=== PATIENT | female | born 1950 | race Caucasian/White ===

== ENCOUNTER 2020-04-11 16:19 | Inpatient (IN) | payer MEDICARE, BC ==
--- NOTE | 2020-04-11 16:40 | ED ---
SOB HPI - General Chief Complaint: Shortness of Breath Stated Complaint: hypoxia, covid Time Seen by Provider: 04/11/20 16:22 Source: EMS Mode of arrival: EMS Limitations: no limitations - History of Present Illness Initial Comments: Is a 61-year-old female to history of hypertension and hypothyroidism who presents emergency department for shortness of breath. The patient states that she noted approximately one week ago that she was having fevers and decreased appetite with loss of taste. She states that she also developed some diarrhea. She was diagnosed with Coban through the health department for days ago. She was at home with her however noted that she was becoming aggressively short of breath so she went to [facility]. While she was there she was found to be hypoxic at 86%. She was started on high flow nasal cannula at 12 with improvement in her oxygenation. She was also found be febrile. She had a full workup performed including blood work which was mostly unremarkable. CBC was showing normal white blood cell count hemoglobin is 17. No lymphopenia was noted. Chemistry profile was also unremarkable except for mild hyponatremia at 127. Troponin was negative. The patient did have x-ray and a CTA performed that showed findings consistent with Coban pneumonia. EKG showed sinus rhythm without any ischemic changes. The patient was transferred to this hospital as her O2 requirement. The patient states that she is full code. - Related Data Allergies Allergy/AdvReac Type Severity Reaction Status Date / Time No Known Allergies Allergy Verified 04/11/20 16:28 Review of Systems ROS Statement: Those systems with pertinent positive or pertinent negative responses have been documented in the HPI. ROS Other: All systems not noted in ROS Statement are negative. Past Medical History Past Medical History: No Reported History History of Any Multi-Drug Resistant Organisms: None Reported Past Surgical History: Hysterectomy Additional Past Surgical History / Comment(s): bilat post tib tendon repair, Past Psychological History: No Psychological Hx Reported Smoking Status: Former smoker Past Alcohol Use History: Occasional Past Drug Use History: Marijuana General Exam - General Exam Comments Initial Comments: Constitutional: Awake alert Appears comfortable Head: Normocephalic atraumatic Eyes: no conjunctival injection No scleral icterus EOMI Neck: No JVD Supple Heart: Regular rate rhythm normal S1-S2 no murmurs Lungs: Mild tachypnea Clear to auscultation bilaterally No wheezing No rales Abdomen: Soft nondistended nontender Extremities: Non edematous DP pulses intact Radial pulses intact Neuro: A&Ox3 No focal neurologic deficits Psych: Appropriate mood and affect Limitations: no limitations Course Vital Signs 04/11/20 16:20 Temperature 99.6 F Pulse Rate 81 Respiratory 18 Rate Blood Pressure 107/69 O2 Sat by Pulse 93 L Oximetry Medical Decision Making - Medical Decision Making Is a 61-year-old female who presents emergency department for cold and pneumonia and hypoxia. The patient did appear comfortable on examination however was requiring a high amount of oxygen through high flow nasal cannula. I did review blood work and imaging from outside facility and these are consistent with Coban pneumonia. I spoke with Dr. Valdez and reviewed the case with him and he agreed for admission. The patient will be admitted to the stepdown cold unit for close monitoring due to her high requirement of oxygen. Patient currently agrees with plan of care. All questions were answered. We'll consult infectious disease for consideration of Remdesevir. Disposition Clinical Impression: Pneumonia due to COVID-19 virus Disposition: ADMITTED IP TO THIS HOSP Condition: Good Referrals: Nilay Crabtree MD [Primary Care Provider] - 1-2 days Decision to Admit Reason: Admit from EC
[2020-04-11] MEDS ORDERED: NALOXONE 0.4 MG/ML 1 ML VIAL IV PRN (16:48)
[2020-04-11] MEDS ORDERED: ACETAMINOPHEN TAB 325 MG TAB PO PRN (16:48)
[2020-04-11 16:58] LABS: Basophils # (A) 0.1 k/uL (0-0.2); Basophils % (A) 1 %; Eosinophils % (A) 0 %; HCT 51.6 % (34.0-46.0); Lymphocytes # (A) 0.3 k/uL (1.0-4.8); Lymphocytes % (A) 3 %; MCV 91.6 fL (80.0-100.0); Mean Platelet Volume 8.1; Monocytes # (A) 0.6 k/uL (0-1.0); Monocytes % (A) 6 %; Neutrophils # (A) 8.9 k/uL (1.3-7.7); Neutrophils % (A) 89 %; Platelet Count 164 k/uL (150-450); RBC 5.63 m/uL (3.80-5.40); RDW 13.1 % (11.5-15.5)
[2020-04-11 17:11] LABS: ALT 24 U/L (4-34); AST 58 U/L (14-36); African American GFR (CKD) >90 (>60 ml/min/1.73 sqM); Albumin 3.2 g/dL (3.5-5.0); Alkaline Phosphatase 56 U/L (38-126); Anion Gap 10 mmol/L; Blood Urea Nitrogen 20 mg/dL (7-17); Calcium 7.8 mg/dL (8.4-10.2); Carbon Dioxide 19 mmol/L (22-30); Chloride 102 mmol/L (98-107); Glucose 119 mg/dL (74-99); LDH 1701 U/L (313-618); Magnesium 2.1 mg/dL (1.6-2.3); Non-African American GFR(CKD) 84 (>60 ml/min/1.73 sqM); Sodium 131 mmol/L (137-145); Total Bilirubin 0.9 mg/dL (0.2-1.3); Total Protein 6.4 g/dL (6.3-8.2)
[2020-04-11 17:16] LABS: D-Dimer 0.72 mg/L FEU (<0.60); INR 1.1 (<1.2); Partial Thromboplastin Time 28.9 sec (22.0-30.0); Prothrombin Time 10.9 sec (9.0-12.0)
[2020-04-11 17:23] LABS: C Reactive Protein 224.2 mg/L (<10.0); Potassium 4.3 mmol/L (3.5-5.1)
--- NOTE | 2020-04-11 17:38 | XR ---
EXAMINATION TYPE: XR chest 1V portable DATE OF EXAM: 04/11/2020 COMPARISON: NONE HISTORY: Short of breath TECHNIQUE: Single view FINDINGS: Heart is normal. Lungs are clear of consolidation. There are no hilar masses. Thoracic aort a is atheromatous. There are chest leads. Costophrenic angles are clear. IMPRESSION: No active cardiopulmonary disease. Normal heart.
[2020-04-11] MEDS: SODIUM CHLORIDE 0.9% 1,000 ML IV SCH (18:27)
[2020-04-11] MEDS: dexAMETHasone 2 MG TAB PO SCH (19:51)
[2020-04-11] MEDS: ENOXAPARIN 40 MG/0.4 ML SYRINGE SQ SCH (19:51)
[2020-04-11] MEDS: FAMOTIDINE 20 MG TAB PO SCH (19:51)
[2020-04-11] MEDS: ALBUTEROL HFA INHALER INHALATION SCH (20:00)
--- NOTE | 2020-04-11 20:05 | HP ---
HISTORY AND PHYSICAL DATE OF SERVICE: 04/11/2020. CHIEF COMPLAINT: Shortness of breath with cough and hypoxia. HISTORY OF PRESENT ILLNESS: This 69-year-old woman with a past medical history of multiple medical problems including hysterectomy, history of tibial tendon repair, being followed by Dr. Crabtree in the outpatient setting, living in the [place] area. The patient had hypertension and hypothyroidism. The patient was complaining of shortness of breath and fever, cough about 1 week ago which is increasing with decreased appetite and loss of taste also. The patient also developed some diarrhea. The patient was diagnosed with Covid through the health department, but she is getting more short of breath and went to [facility] and was found to be hypoxic at 80% oxygen saturation. 12 L oxygen was given and the patient was subsequently transferred to [facility] and admitted for evaluation and treatment. The patient had elevated D-dimer, but CT angio showed no evidence of pulmonary embolism and as well as bilateral interstitial suggestive of Covid 19 pneumonia in [facility]. There is no history of any fever, rigor or chills. No history of headache, loss of consciousness, seizures at this time. PAST MEDICAL HISTORY: History of hysterectomy, history of bilateral posterior tibial tendon repair. MEDICATIONS: Medications prior to admission included: Losartan, hydrochlorothiazide Synthroid. ALLERGIES: None. FAMILY HISTORY: No history of heart disease of any strokes in the family. SOCIAL HISTORY: Previous history of smoking. Occasional THC. REVIEW OF SYSTEMS: ENT: No diminished vision. No diminished hearing. CARDIOVASCULAR: As mentioned earlier. RESPIRATORY: As mentioned earlier. GI no nausea. no dysuria. NERVOUS SYSTEM: No numbness or weakness. ALLERGY/IMMUNOLOGY: No asthma or hayfever. MUSCULOSKELETAL as mentioned earlier. HEMATOLOGY: No history of anemia. ENDOCRINE: As mentioned earlier. CONSTITUTIONAL: As mentioned earlier. DERMATOLOGY: Negative. RHEUMATOLOGY negative. PSYCHIATRY as mentioned earlier. PHYSICAL EXAMINATION: The patient is alert and oriented times three. Pulse 68, blood pressure 120/60. Respiration 18, temperature 98.2, pulse ox 97% on 11 L. HEENT: Conjunctivae normal. NECK: No JVD. CARDIOVASCULAR: S1, S2 muffled. RESPIRATORY: Breath sounds diminished in the bases. Bilateral scattered rhonchi and crackles. ABDOMEN: Soft, nontender. No mass palpable. LEGS: No edema. No swelling. NERVOUS SYSTEM: Higher functions as mentioned earlier. Moves all 4 limbs. No focal motor or sensory deficits. Lymphatics: No lymph nodes palpable in the neck, axillae or groin. SKIN: No ulcer, no rash and no bleeding. JOINTS: No active deforming arthropathy. LABS: At this time shows WBC 10, hemoglobin is 18. INR is 1.1. Sodium 139, potassium 4.3 and glucose 119, calcium 7.8, LDH is 1701. C-reactive protein is 224, albumin is 2.2. ASSESSMENT: 1. Acute Covid 19 infection as well as acute bilateral interstitial pneumonia with acute hypoxic respiratory failure present on admission. 2. Increased hemoglobin with polycythemia. 3. Increased elevated D-dimer without any evidence of pulmonary embolism. 4. Hyponatremia. 5. Mild metabolic acidosis. 6. Elevated LDH and CRP inflammatory markers of Covid 19. 7. History of hysterectomy. 8. History of bilateral posterior tibial tendon repair. 9. Remote history of nicotine dependence. 10.Obesity with body mass index of 35. 11.FULL CODE. RECOMMENDATIONS AND DISCUSSION: This 69-year-old woman who presented with multiple complex medical issues, we will monitor the patient closely, continue the current medications. I recommend symptomatic treatment with albuterol, dexamethasone and I would also recommend zinc and consult Pulmonary and as well as Infectious Disease. The patient might be a candidate for Remdesivir because of the patient's renal presentation. We will continue to monitor. The prognosis guarded. Further recommendations to follow. A copy of this dictation is being forwarded to Dr. Nilay Crabtree who is the primary physician. MMFREDRICKL / DELANEYN: [id number] / MTDD
[2020-04-11 23:54] LABS: Appearance,Urine Cloudy (Clear); Bilirubin,Urine Negative (Negative); Blood,Urine Small (Negative); Color,Urine Yellow; Glucose,Urine (UA) 2+ (Negative); Ketones,Urine 1+ (Negative); Leukocyte Esterase,Urine Negative (Negative); Mucus,Urine Few /hpf; Nitrite,Urine Negative (Negative); Protein,Urine 1+ (Negative); RBC,Urine 1 /hpf (0-5); Specific Gravity,Urine 1.045 (1.001-1.035); Squamous Epithelial Cell,Urine 2 /hpf (0-4); WBC,Urine 5 /hpf (0-5)
[2020-04-12 00:05] LABS: Ferritin 2111.3 ng/mL (10.0-291.0)
[2020-04-12] MEDS: SODIUM CHLORIDE 0.9% 1,000 ML IV SCH ×2 (05:51→20:50)
[2020-04-12] MEDS: LEVOTHYROXINE 50 MCG TAB PO SCH (06:25)
[2020-04-12] MEDS: INSULIN ASPART (NovoLOG) 100 UNIT/ML VIAL SQ SCH ×4 (06:25→20:49)
[2020-04-12 06:29] LABS: Glucose,Whole Blood 140 mg/dL (75-99)
[2020-04-12 07:29] LABS: Basophils # (A) 0.1 k/uL (0-0.2); Basophils % (A) 1 %; Eosinophils % (A) 0 %; HCT 52.8 % (34.0-46.0); Lymphocytes # (A) 0.5 k/uL (1.0-4.8); Lymphocytes % (A) 5 %; MCHC 34.2 g/dL (31.0-37.0); MCV 93.6 fL (80.0-100.0); Mean Platelet Volume 8.3; Monocytes # (A) 0.6 k/uL (0-1.0); Monocytes % (A) 7 %; Neutrophils # (A) 8.5 k/uL (1.3-7.7); Neutrophils % (A) 86 %; Platelet Count 188 k/uL (150-450); RBC 5.64 m/uL (3.80-5.40); RDW 13.2 % (11.5-15.5); WBC 9.9 k/uL (3.8-10.6)
[2020-04-12 07:38] LABS: African American GFR (CKD) >90 (>60 ml/min/1.73 sqM); Anion Gap 6 mmol/L; Blood Urea Nitrogen 22 mg/dL (7-17); Carbon Dioxide 26 mmol/L (22-30); Chloride 103 mmol/L (98-107); Glucose 141 mg/dL (74-99); Non-African American GFR(CKD) >90 (>60 ml/min/1.73 sqM); Potassium 4.1 mmol/L (3.5-5.1); Sodium 135 mmol/L (137-145)
[2020-04-12] MEDS: ALBUTEROL HFA INHALER INHALATION SCH ×3 (08:26→20:55)
[2020-04-12] MEDS: LOSARTAN-HCTZ 50-12.5 MG 1 EACH TAB PO SCH (08:52)
[2020-04-12] MEDS: ZINC SULFATE 220 MG CAP PO SCH (08:52)
[2020-04-12] MEDS: FAMOTIDINE 20 MG TAB PO SCH ×2 (08:52→20:49)
[2020-04-12] MEDS: dexAMETHasone 2 MG TAB PO SCH (08:52)
[2020-04-12] MEDS: CHOLECALCIFEROL 1,000 UNIT TAB PO SCH (08:52)
[2020-04-12] MEDS: ASCORBIC ACID 500 MG TAB PO SCH (08:52)
[2020-04-12] MEDS: ENOXAPARIN 40 MG/0.4 ML SYRINGE SQ SCH ×2 (08:53→20:49)
[2020-04-12 11:59] LABS: Glucose,Whole Blood 126 mg/dL (75-99)
[2020-04-12] MEDS ORDERED: REMDESIVIR 200 MG in SODIUM CHLORIDE 0.9% 250 ML IVPB ONE (12:00)
[2020-04-12] MEDS: FOLIC ACID 1 MG TAB PO SCH (12:19)
[2020-04-12] MEDS: MULTIVITAMINS, THERA 1 EACH TAB PO SCH (12:19)
[2020-04-12] MEDS: THIAMINE 100 MG TAB PO SCH (12:20)
--- NOTE | 2020-04-12 14:58 | P.CNPUL ---
History of Present Illness Consult date: 04/12/20 Requesting physician: Vince Valdez Reason for consult: pneumonia Chief complaint: Shortness of breath cough and fever. History of present illness: This is a 69-year-old female with history of hypertension, hypothyroidism, patient presented with 1 week history of cough fever shortness of breath, decreased appetite, and intermittent episodes of diarrhea. Patient was diagnosed as having covid 19 infection. It's was done through the health Department. Patient presented to [facility] and was found to be hypoxic, O2 saturations was 80%, patient was placed on 12 L high flow nasal ca nnula, and arrangements were made to transfer the patient to [facility]. She had a CT angiogram of the chest, and there was no evidence of pulmonary embolism, however there was evidence of bilateral interstitial infiltrates consistent with covid 19 pneumonitis. Considering the diagnoses and considering the presentation, patient was admitted and this consult was initiated. Patient had multiple constitutional symptoms prior to admission however she did not lose sensation of taste or smell. She had mostly cough, shortness of breath, fever, diarrhea, and generalized aches and pains as well as extreme fatigue. Review of Systems Constitutional: Fever chills extreme fatigue aches and pains. HEENT: Negative. Pulmonary: As noted in HPI. GI: No nausea no vomiting but she had intermittent diarrhea. Genitourinary: Negative. Musculoskeletal: Aches and pains and fatigue. Neurologic: Headaches. Psychiatric: Negative. Endocrine: Negative. Hematologic: No clotting bleeding or bruising. Skin: Negative. Past Medical History Past Medical History: Hypertension, Thyroid Disorder History of Any Multi-Drug Resistant Organisms: None Reported Past Surgical History: Hysterectomy Additional Past Surgical History / Comment(s): bilat post tib tendon repair, Past Anesthesia/Blood Transfusion Reactions: No Reported Reaction Smoking Status: Former smoker Medications and Allergies Home Medications Medication Instructions Recorded Confirmed Type Levothyroxine Sodium [Synthroid] 50 mcg PO DAILY 04/11/20 04/11/20 History Losartan/Hydrochlorothiazide 1 tab PO DAILY 04/11/20 04/11/20 History [Losartan-Hctz 50-12.5 mg Tab] Allergies Allergy/AdvReac Type Severity Reaction Status Date / Time No Known Allergies Allergy Verified 04/11/20 17:17 Physical Exam Vitals: Vital Signs Temp Pulse Pulse Resp BP BP Pulse Ox 04/12/20 12:00 98.3 F 78 20 136/76 93 L 04/12/20 08:00 98.3 F 80 20 131/80 95 04/12/20 04:00 97.9 F 67 24 159/73 91 L 04/12/20 02:00 68 26 H 04/11/20 23:49 98.6 F 72 26 H 170/99 84 L 04/11/20 20:00 98.4 F 66 20 134/67 94 L 04/11/20 19:05 92 L 04/11/20 18:54 102 F H 04/11/20 18:49 68 22 109/70 92 L 04/11/20 18:31 98.2 F 68 18 110/63 97 04/11/20 16:20 99.6 F 81 18 107/69 93 L Intake and Output 04/11/20 04/12/20 04/12/20 22:59 06:59 14:59 Intake Total 300 120 Output Total 300 400 Balance 0 -280 Intake: Intake, IV Titration 300 Amount Sodium Chloride 0.9% 1, 300 000 ml @ 75 mls/hr IV . [id number] [facility] Rx#:[id number] Oral 120 Output: Urine 300 400 Other: Voiding Method Bedside Commode Bedside Commode # Voids 1 Weight 104.326 kg 105 kg Physical Exam: Revealed a 69-year-old female in no distress. However the patient is on 15 L high flow nasal cannula with O2 saturation of 93%. Head: Atraumatic normocephalic. HEENT:[Neck is supple.] [No neck masses.] [No thyromegaly.] [No JVD.] Her lack, EOMI, nonicteric. Chest: [Symmetrical chest expansion, fine crackles at the bases no rhonchi and no wheezes. Cardiac Exam: [Normal S1 and S2, no S3 gallop, no murmur.] Abdomen: [Soft, nontender, no megaly, no rebound, no guarding, normal bowel sounds.] Extremities: [No clubbing, no edema, no cyanosis.] Neurological Exam: [No focal neurologic deficit.] Alert and oriented 3. Psychiatric: Normal mood, affect and normal mental status examination. Skin: No rashes. Results - Laboratory Findings CBC and BMP: 04/12/20 07:12 04/12/20 07:12 PT/INR, D-dimer PT 10.9 sec (9.0-12.0) 04/11/20 16:48 INR 1.1 (<1.2) 04/11/20 16:48 D-Dimer 0.72 mg/L FEU (<0.60) H 04/11/20 16:48 Abnormal lab findings: Abnormal Labs 04/11/20 04/11/20 04/11/20 16:48 16:48 16:48 RBC 5.63 H Hgb 18.0 H Hct 51.6 H Neutrophils # 8.9 H Lymphocytes # 0.3 L D-Dimer 0.72 H Sodium 131 L Carbon Dioxide 19 L BUN 20 H Glucose 119 H POC Glucose (mg/dL) Calcium 7.8 L Ferritin 2111.3 H AST 58 H Lactate Dehydrogenase 1701 H C-Reactive Protein 224.2 H Albumin 3.2 L Procalcitonin Urine Appearance Ur Specific [place] Urine Protein Urine Glucose (UA) Urine Ketones Urine Blood Urine Mucus 04/11/20 04/11/20 04/12/20 16:48 23:42 06:22 RBC Hgb Hct Neutrophils # Lymphocytes # D-Dimer Sodium Carbon Dioxide BUN Glucose POC Glucose (mg/dL) 140 H Calcium Ferritin AST Lactate Dehydrogenase C-Reactive Protein Albumin Procalcitonin 0.10 H Urine Appearance Cloudy H Ur Specific [place] 1.045 H Urine Protein 1+ H Urine Glucose (UA) 2+ H Urine Ketones 1+ H Urine Blood Small H Urine Mucus Few H 04/12/20 04/12/20 04/12/20 07:12 07:12 11:58 RBC 5.64 H Hgb 18.0 H Hct 52.8 H Neutrophils # 8.5 H Lymphocytes # 0.5 L D-Dimer Sodium 135 L Carbon Dioxide BUN 22 H Glucose 141 H POC Glucose (mg/dL) 126 H Calcium 8.0 L Ferritin AST Lactate Dehydrogenase C-Reactive Protein Albumin Procalcitonin Urine Appearance Ur Specific [place] Urine Protein Urine Glucose (UA) Urine Ketones Urine Blood Urine Mucus - Diagnostic Findings CT scan - chest: image reviewed (As noted in HPI.) Assessment and Plan Assessment: Impression: Acute hypoxic respiratory failure secondary tocovid 19 pneumonitis. Elevated inflammatory markers including LDH and CRP secondary to above. History of hysterectomy. Remote history of nicotine dependence. Obesity with body index of 35. Elevated d-dimer but negative for pulmonary embolism. Recommendation: Continue the present cocktail for covid 19 pneumonitis. Will start patient on remdesivir Will start patient on convalescent plasma We'll continue Decadron, vitamin C, vitamin D, and zinc. Continue GI prophylaxis. Continue Lovenox. Will follow closely. Prognosis is guarded. Time with Patient: Greater than 30
--- NOTE | 2020-04-12 16:21 | PN ---
PROGRESS NOTE DATE OF SERVICE: 04/12/2020 This 69-year-old woman was admitted with acute Covid 19 infection with bilateral pneumonia. Otherwise, the patient has acute hypoxic respiratory failure, started on Remdesivir as well as conservative line of management. Patient has elevated D-dimer. There is no evidence of pneumonia. Multiple consultants are following the patient including Pulmonary and as well as Infectious Disease. Past medical history reviewed. REVIEW OF SYSTEMS: CARDIOVASCULAR SYSTEM: As mentioned earlier. RESPIRATORY: As mentioned earlier. GI no nausea or vomiting. : As mentioned earlier. NERVOUS SYSTEM: No numbness or weakness. CURRENT MEDICATIONS: Reviewed and include: Tylenol, Ventolin, vitamin C, vitamin D3, Hexadrol, Lovenox, Pepcid, Hyzaar, NovoLog. Doses are reviewed. PHYSICAL EXAMINATION: Alert and oriented times three. Pulse 78, blood pressure 130/70, respiration 20, temperature 98.2, pulse ox 92% on 15 L. HEENT: Conjunctivae normal. Neck: No JVD. CARDIOVASCULAR: S1, S2 muffled. Respirations: Breath sounds diminished in the bases. Bilateral scattered rhonchi and crackles. ABDOMEN: Soft. Nontender. NERVOUS SYSTEM: No focal deficits. LABS: Hemoglobin 18. Sodium 135 and glucose is 126 and calcium is 8. ASSESSMENT: 1. Acute COVID-19 infection as well as bilateral interstitial pneumonia with acute hypoxic respiratory failure present on admission. 2. Increased hemoglobin with polycythemia. 3. Elevated D-dimer without any evidence of any pulmonary embolism. 4. Hyponatremia. 5. Mild metabolic acidosis. 6. Elevated LDH and CRP, inflammatory markers of Covid 19. 7. History of hysterectomy. 8. History of bilateral posterior tibial tendon repair. 9. Remote history of nicotine dependence. 10.Obesity with body mass index of 35. 11.FULL CODE. RECOMMENDATIONS AND DISCUSSION: Recommend to continue current medications, management and symptomatic treatment. Otherwise at this time I recommend continue with symptomatic treatment. Continue with Remdesivir. Continue with dexamethasone. Monitor blood sugars closely. Lovenox, zinc. Guarded prognosis because of multiple complex medical issues and further recommendations to follow. We will repeat a chest x-ray tomorrow. The chest x-ray done yesterday was personally reviewed by me. The CT angio done yesterday did not show any evidence of pulmonary embolism. MMODL / IJN: [id number] /
[2020-04-12 17:12] LABS: Glucose,Whole Blood 141 mg/dL (75-99)
[2020-04-12 20:25] LABS: Glucose,Whole Blood 160 mg/dL (75-99)
--- NOTE | 2020-04-13 00:04 | CONS ---
CONSULTATION DATE OF SERVICE: 04/12/2020 REASON FOR CONSULTATION: Pneumonia. HISTORY OF PRESENT ILLNESS: The patient is a 69-year-old female presenting to the ER with chief complaints of generalized not feeling well, shortness of breath, chest pain. The patient's symptoms started on April 05, with initial symptoms has been generalized weakness, no energy and run down. The patient also having a fever and apparently the patient did have a COVID testing done on the . She was told was positive a day later. The patient started having increasing shortness of breath on minimal exertion. Subsequently presented to [facility]. The patient was noted to be hypoxic with O2 sats 98%. The patient was placed on high-flow oxygen and transferred to [facility] ER for further evaluation. On arrival to the ER, the patient did have a fever of 102 degrees Fahrenheit. The patient did have hypoxemia, currently on high-flow nasal cannula oxygen. The patient did have a normal white count with evidence of lymphopenia. Kidney function has been normal. Procalcitonin 0.10. CRP 24.2. Liver enzymes elevated. The patient did have a chest x-ray with evidence of no acute cardiopulmonary disease. The patient has been admitted to the hospital and Infectious Disease Service is consulted for further management. The patient already has been evaluated by Pulmonary service and the patient was started on Remdesivir, Lovenox and Dexamethasone. REVIEW OF SYMPTOMS: On review of systems positive points have been mentioned in HPI. Rest of the systems are negative. PAST MEDICAL HISTORY: No major illnesses. PAST SURGICAL HISTORY: Hysterectomy, bilateral posterior tibial tendon repair. SOCIAL HISTORY: Remote history of smoking. Did admit to marijuana use and drinking. FAMILY HISTORY: No pertinent findings noticed. ALLERGIES: No known drug allergies. MEDICATIONS: The patient is currently on Remdesivir, dexamethasone, Lovenox, Tylenol, vitamin C, Pepcid, NovoLog, Synthroid, Narcan and zinc. PHYSICAL EXAMINATION: Her blood pressure is 136/70 with a pulse of 84, temperature 99.8, T-max 102. Patient is on 15 L high-flow oxygen. General description is an elderly female lying in bed in no distress. No tachypnea or accessory muscles of respiration use. HEENT: Examination no pallor or scleral icterus. Oral mucous membrane is dry. Neck exam: No thyromegaly. Lungs unlabored breathing. Coarse breath sounds in the bases bilaterally. No wheeze. Heart S1, S2. Regular rate and rhythm. Abdomen soft, no tenderness. No guarding. No rigidity. Extremities: No edema of the feet. Skin examination no rash or mass palpable. Neurological: Patient is awake, alert, oriented. Mood, affect normal. LABS: Hemoglobin is 18, white count 9.9, BUN of 22, creatinine 0.6. Electrolytes have been normal. Creatinine is 2. Chest x-ray report negative. DIAGNOSTIC IMPRESSION AND PLAN: Patient with acute shortness of breath, fever, source is acute viral pneumonia secondary to [place] virus in this patient who has been going on for about a week with no suspicious for secondary bacterial pneumonia. PLAN: 1. The patient will be started on Remdisivir 200 mg 1 followed by 100 mg daily for 4 more doses. 2. Lovenox 40 mg daily. 3. Dexamethasone 7 mg daily. 4. Vitamin C and zinc sulfate. 5. Droplet isolation and respiratory support. 6. We will follow on clinical condition and culture to further adjust medication if needed. Thank you for this consultation. Will follow this patient along with you. MMODL / IJN: [id number] / KELSIE
[2020-04-13 06:05] LABS: Glucose,Whole Blood 109 mg/dL (75-99)
[2020-04-13] MEDS: INSULIN ASPART (NovoLOG) 100 UNIT/ML VIAL SQ SCH ×4 (06:37→21:55)
[2020-04-13] MEDS: SODIUM CHLORIDE 0.9% 1,000 ML IV SCH ×2 (06:41→21:57)
[2020-04-13] MEDS: ALBUTEROL HFA INHALER INHALATION SCH ×3 (08:16→19:50)
[2020-04-13 08:42] LABS: Basophils # (A) 0.2 k/uL (0-0.2); Basophils % (A) 1 %; Eosinophils % (A) 0 %; HCT 50.9 % (34.0-46.0); HGB 17.2 gm/dL (11.4-16.0); Lymphocytes # (A) 1.2 k/uL (1.0-4.8); Lymphocytes % (A) 8 %; MCH 31.4 pg (25.0-35.0); MCHC 33.8 g/dL (31.0-37.0); MCV 92.9 fL (80.0-100.0); Mean Platelet Volume 7.9; Monocytes # (A) 0.9 k/uL (0-1.0); Monocytes % (A) 6 %; Neutrophils # (A) 12.8 k/uL (1.3-7.7); Neutrophils % (A) 84 %; Platelet Count 275 k/uL (150-450); RBC 5.48 m/uL (3.80-5.40); RDW 13.2 % (11.5-15.5); WBC 15.3 k/uL (3.8-10.6)
[2020-04-13 08:54] LABS: African American GFR (CKD) >90 (>60 ml/min/1.73 sqM); Anion Gap 6 mmol/L; Blood Urea Nitrogen 21 mg/dL (7-17); Calcium 8.1 mg/dL (8.4-10.2); Carbon Dioxide 27 mmol/L (22-30); Chloride 101 mmol/L (98-107); Glucose 115 mg/dL (74-99); Non-African American GFR(CKD) 80 (>60 ml/min/1.73 sqM); Potassium 3.8 mmol/L (3.5-5.1); Sodium 134 mmol/L (137-145)
[2020-04-13] MEDS: dexAMETHasone 2 MG TAB PO SCH (08:55)
[2020-04-13] MEDS: CHOLECALCIFEROL 1,000 UNIT TAB PO SCH (08:55)
[2020-04-13] MEDS: FAMOTIDINE 20 MG TAB PO SCH ×2 (08:55→20:09)
[2020-04-13] MEDS: LOSARTAN-HCTZ 50-12.5 MG 1 EACH TAB PO SCH (08:55)
[2020-04-13] MEDS: ENOXAPARIN 40 MG/0.4 ML SYRINGE SQ SCH ×2 (08:55→20:09)
[2020-04-13] MEDS: ZINC SULFATE 220 MG CAP PO SCH (08:55)
[2020-04-13] MEDS: ASCORBIC ACID 500 MG TAB PO SCH (08:58)
--- NOTE | 2020-04-13 09:11 | XR ---
EXAMINATION TYPE: XR chest 1V portable DATE OF EXAM: 04/13/2020 COMPARISON: 04/11/2020 INDICATION: Covid TECHNIQUE: Single frontal view of the chest is obtained. FINDINGS: The heart size is normal. The pulmonary vasculature is prominent. Scattered mild opacity is present to the bilateral infiltrates can be compatible with atypical pneumo darshan IMPRESSION: 1. Findings which can be compatible with atypical pneumonia.
[2020-04-13] MEDS ORDERED: FUROSEMIDE 10 MG/ML 4 ML VIAL IV STA (11:30)
[2020-04-13] MEDS: FOLIC ACID 1 MG TAB PO SCH (11:45)
[2020-04-13] MEDS: THIAMINE 100 MG TAB PO SCH (11:45)
[2020-04-13] MEDS: MULTIVITAMINS, THERA 1 EACH TAB PO SCH (11:45)
[2020-04-13] MEDS: REMDESIVIR 100 MG in SODIUM CHLORIDE 0.9% 250 ML IVPB SCH (11:46)
[2020-04-13 12:01] LABS: Glucose,Whole Blood 111 mg/dL (75-99)
[2020-04-13 13:19] LABS: Glucose,Whole Blood 125 mg/dL (75-99)
--- NOTE | 2020-04-13 13:47 | P.PN ---
Subjective Progress Note Date: 04/13/20 Principal diagnosis: Acute hypoxic respiratory failure secondary to covid 19 pneumonitis This is a 69-year-old female with history of hypertension, hypothyroidism, patient presented with 1 week history of cough fever shortness of breath, decreased appetite, and intermittent episodes of diarrhea. Patient was diagnosed as having covid 19 infection. It's was done through the health Department. Patient presented to [facility] and was found to be hypoxic, O2 saturations was 80%, patient was placed on 12 L high flow nasal cannula, and arrangements were made to transfer the patient to [facility]. She had a CT angiogram of the chest, and there was no evidence of pulmonary embolism, however there was evidence of bilateral interstitial infiltrates consistent with covid 19 pneumonitis. Considering the diagnoses and considering the presentation, patient was admitted and this consult was initiated. Patient had multiple constitutional symptoms prior to admission however she did not lose sensation of taste or smell. She had mostly cough, shortness of breath, fever, diarrhea, and generalized aches and pains as well as extreme fatigue. Patient was reevaluated today on 04/13/2020, she seems to be extremely short of breath today. She has intermittent cough, and she is barely maintaining adequate O2 saturation in spite of being on a nonrebreather mask at 15 L flow. Hence after examining the patient and examining her chest x-ray, I have ron mmended transferring the patient to the ICU, she needs to be placed on airvo possibly BiPAP, and she may even require intubation and mechanical ventilation if her condition does not improve much soon. CBC showed leukocytosis with WBC of 15.3 hemoglobin is 17.2 index was abnormal renal profile is normal. Objective - Vital Signs Vital signs: Vital Signs Temp 98.6 F 04/13/20 12:04 Pulse 76 04/13/20 12:04 Resp 18 04/13/20 12:04 BP 112/78 04/13/20 12:04 Pulse Ox 76 L 04/13/20 12:04 Intake & Output 04/12/20 04/13/20 04/13/20 18:59 06:59 18:59 Intake Total 895 430 480 Output Total 400 200 Balance 495 230 480 Intake: Intake, IV Titration 775 Amount Remdesivir 200 mg In 250 Sodium Chloride 0.9% 250 ml @ 250 mls/hr IVPB ONCE ONE Rx#:[id number] Sodium Chloride 0.9% 1, 525 000 ml @ 75 mls/hr IV . [id number] [facility] Rx#:[id number] Oral 120 240 480 Blood Product 0 190 Ffp Pher Conval Covid19 0 190 Acda 1 Unit [id number] Output: Urine 400 200 Other: # Voids 1 - Exam Physical Exam: Revealed a 69-year-old female , in moderate respiratory distress. Head: Atraumatic normocephalic. HEENT:[Neck is supple.] [No neck masses.] [No thyromegaly.] [No JVD.] Her lack, EOMI, nonicteric. Chest: [Symmetrical chest expansion, crackles and rhonchi noted bilaterally Cardiac Exam: [Normal S1 and S2, no S3 gallop, no murmur.] Abdomen: [Soft, nontender, no megaly, no rebound, no guarding, normal bowel sounds.] Extremities: [No clubbing, no edema, no cyanosis.] Neurological Exam: [No focal neurologic deficit.] Alert and oriented 3. Psychiatric: Normal mood, affect and normal mental status examination. Skin: No rashes. - Labs CBC & Chem 7: 04/13/20 08:20 04/13/20 08:20 Labs: Abnormal Lab Results - Last 24 Hours (Table) 04/12/20 04/12/20 04/13/20 Range/Units 16:57 20:23 06:04 WBC (3.8-10.6) k/uL RBC (3.80-5.40) m/uL Hgb (11.4-16.0) gm/dL Hct (34.0-46.0) % Neutrophils # (1.3-7.7) k/uL Sodium (137-145) mmol/L BUN (7-17) mg/dL Glucose (74-99) mg/dL POC Glucose (mg/dL) 141 H 160 H 109 H (75-99) mg/dL Calcium (8.4-10.2) mg/dL 04/13/20 04/13/20 04/13/20 Range/Units 08:20 08:20 11:52 WBC 15.3 H (3.8-10.6) k/uL RBC 5.48 H (3.80-5.40) m/uL Hgb 17.2 H (11.4-16.0) gm/dL Hct 50.9 H (34.0-46.0) % Neutrophils # 12.8 H (1.3-7.7) k/uL Sodium 134 L (137-145) mmol/L BUN 21 H (7-17) mg/dL Glucose 115 H (74-99) mg/dL POC Glucose (mg/dL) 111 H (75-99) mg/dL Calcium 8.1 L (8.4-10.2) mg/dL 04/13/20 Range/Units 13:18 WBC (3.8-10.6) k/uL RBC (3.80-5.40) m/uL Hgb (11.4-16.0) gm/dL Hct (34.0-46.0) % Neutrophils # (1.3-7.7) k/uL Sodium (137-145) mmol/L BUN (7-17) mg/dL Glucose (74-99) mg/dL POC Glucose (mg/dL) 125 H (75-99) mg/dL Calcium (8.4-10.2) mg/dL Microbiology - Last 24 Hours (Table) 04/11/20 18:09 Blood Culture - Preliminary Blood No Growth after 24 hours 04/11/20 18:00 Blood Culture - Preliminary Blood No Growth after 24 hours Assessment and Plan Assessment: Impression: Acute hypoxic respiratory failure secondary tocovid 19 pneumonitis. Elevated inflammatory markers including LDH and CRP secondary to above. History of hysterectomy. Remote history of nicotine dependence. Obesity with body index of 35. Elevated d-dimer but negative for pulmonary embolism. Recommendation: Immediate transfer the patient to ICU. Patient to be placed on airvo, possibly BiPAP. Continue the present cocktail for covid 19 pneumonitis. Continue remdesivir Continue convalescent plasma We'll continue Decadron, vitamin C, vitamin D, and zinc. Continue GI prophylaxis. Continue Lovenox. Will follow closely. Prognosis is guarded. Time with Patient: Less than 30
--- NOTE | 2020-04-13 15:39 | PN ---
PROGRESS NOTE DATE OF SERVICE: 04/13/2020 This 69-year-old woman who was admitted with COVID-19 infection and bilateral pneumonia is being closely monitored. Today the patient is a bit more hypoxic. The patient was started on remdesivir. Her chest x-ray showed bilateral infiltrates. Dr. Motta and Infectious Disease are following the patient closely. Past medical history reviewed. REVIEW OF SYSTEMS: CARDIOVASCULAR SYSTEM: As mentioned earlier. RESPIRATORY SYSTEM: As mentioned earlier. GI: As mentioned earlier. : No dysuria or retention. NERVOUS SYSTEM: No numbness, weakness. CURRENT MEDICATIONS: Reviewed. They include Tylenol, Ventolin, vitamin D3, Lovenox, Pepcid, Lasix, Hyzaar, NovoLog, Synthroid, multivitamins, Narcan, remdesivir. Doses are reviewed. PHYSICAL EXAMINATION: The patient is alert and oriented x3. Pulse is 76, blood pressure 112/78, respiration 18, temperature 98.6, pulse ox 76% on 15 L. HEENT: Conjunctivae normal. NECK: No jugular venous distention. CARDIOVASCULAR SYSTEM: S1, S2 muffled. RESPIRATORY SYSTEM: Breath sounds diminished at the bases. Bilateral scattered rhonchi and crackles. ABDOMEN: Soft, non-tender. LEGS: No edema. No swelling. NERVOUS SYSTEM: No focal deficit. LABS: WBC 15.3, hemoglobin 17.2, sodium 134. Other labs are noted. ASSESSMENT: 1. Acute COVID-19 infection as well as bilateral interstitial pneumonia with acute hypoxic respiratory failure, present on admission. 2. Increased hemoglobin, increased polycythemia. 3. Elevated D-dimer without any evidence of pulmonary embolism. 4. Hyponatremia. 5. Mild metabolic acidosis. 6. Elevated LDH and CRP inflammatory markers of COVID-19. 7. History of hysterectomy. 8. History of bilateral posterior tibial tendon repair. 9. Remote history of nicotine dependence. 10.Obesity with body mass index of 35. 11.FULL CODE. RECOMMENDATIONS AND DISCUSSION: I recommend to continue current medications, continue with symptomatic treatment. Otherwise, we will continue to monitor. Continue with remdesivir. Continue with the antibiotics. I would repeat a CT angio because of the worsening of the patient and continue to monitor. Prognosis guarded. Further recommendations to follow. MMODL / IJN: [id number] / [facility]
[2020-04-13] MEDS ORDERED: FUROSEMIDE 10 MG/ML 4 ML VIAL IV ONE (16:00)
--- NOTE | 2020-04-13 18:16 | CT ---
EXAMINATION TYPE: CT angio chest DATE OF EXAM: 04/13/2020 COMPARISON: 04/11/2020 HISTORY: Shortness of breath CT DLP: 655.5 mGycm Automated exposure control for dose reduction was used. CONTRAST: Performed with IV Contrast, patient injected with 100 mL of Isovue 370. Images were obtained from the thoracic inlet to the diaphragm with IV contrast and 3-D post processed images. There is extensive patchy interstitial and airspace infiltrate in both lungs. Heart is enlarged. Ther e is no pericardial effusion. There is no pleural effusion. There are bilateral bronchial lymph nodes that measure up to 1.5 cm. There are a few mediastinal lymp h nodes that measure up to 1 cm. Thoracic aorta is atheromatous. There is no aneurysm or dissection. The ascending aorta measures 3.3 cm. There is no pericardial effusion. There is normal contrast opacification of the pulmonary arteries. There are no filling defects. The b jazmín thorax is intact. Sternum is intact. IMPRESSION: No evidence of pulmonary embolism. Extensive pulmonary airspace and interstitial infiltrates are significantly increased compared to the exam 2 days ago. Mild cardiomegaly unchanged. Consider RDS.
[2020-04-13] MEDS ORDERED: FUROSEMIDE 10 MG/ML 2 ML VIAL IV ONE (21:28)
--- NOTE | 2020-04-13 22:51 | PN ---
PROGRESS NOTE DATE OF SERVICE: 04/13/2020 REASON FOR FOLLOWUP: COVID-19 pneumonia. INTERVAL HISTORY: The patient has been transferred to ICU, as the patient did have slight worsening of respiratory status. She also had a low-grade fever this morning of 100 to 99.9 degrees Fahrenheit. The patient denies having any chest pain, shortness of breath. She did have a cough, not bringing up any sputum. No nausea, no vomiting, no abdominal pain or diarrhea. PHYSICAL EXAMINATION: Blood pressure 126/70 with a pulse of 81, temperature 98.6. She is 91% on 60% FiO2. General description is an elderly female lying in bed in no distress. RESPIRATORY SYSTEM: Unlabored breathing with decreased intensity of breath sounds. No wheeze. HEART: S1, S2. Regular rate and rhythm. ABDOMEN: Soft. No tenderness. LABS: Hemoglobin is 17.1, white count 15.3, BUN of 21, creatinine 0.77. DIAGNOSTIC IMPRESSION AND PLAN: Patient with acute COVID-19 pneumonia in this patient who seems to have shown overall worsening of her respiratory status. Patient did have a CT angiogram of the chest that was negative for PE. It did show extensive pulmonary interstitial infiltrate concerning for ARDS. The patient is currently covered with remdesivir dexamethasone, Lovenox, and may benefit from a high dose of steroids. Will discuss further with Pulmonary and continue supportive care. MMODL / IJN: [id number] / [facility]
[2020-04-14 04:37] LABS: Basophils # (A) 0.1 k/uL (0-0.2); Basophils % (A) 1 %; Eosinophils % (A) 0 %; HCT 49.5 % (34.0-46.0); HGB 16.8 gm/dL (11.4-16.0); Lymphocytes # (A) 0.9 k/uL (1.0-4.8); Lymphocytes % (A) 8 %; MCH 31.7 pg (25.0-35.0); MCHC 33.9 g/dL (31.0-37.0); MCV 93.5 fL (80.0-100.0); Mean Platelet Volume 8.6; Monocytes # (A) 0.8 k/uL (0-1.0); Monocytes % (A) 7 %; Neutrophils # (A) 9.7 k/uL (1.3-7.7); Neutrophils % (A) 82 %; Platelet Count 248 k/uL (150-450); RDW 13.2 % (11.5-15.5); WBC 11.9 k/uL (3.8-10.6)
[2020-04-14 04:53] LABS: ALT 24 U/L (4-34); AST 64 U/L (14-36); African American GFR (CKD) >90 (>60 ml/min/1.73 sqM); Albumin 2.9 g/dL (3.5-5.0); Alkaline Phosphatase 71 U/L (38-126); Anion Gap 6 mmol/L; Blood Urea Nitrogen 24 mg/dL (7-17); Calcium 7.7 mg/dL (8.4-10.2); Carbon Dioxide 28 mmol/L (22-30); Chloride 101 mmol/L (98-107); Creatine Kinase 85 U/L (30-135); Glucose 119 mg/dL (74-99); Non-African American GFR(CKD) >90 (>60 ml/min/1.73 sqM); Potassium 3.8 mmol/L (3.5-5.1); Sodium 135 mmol/L (137-145); Total Bilirubin 0.7 mg/dL (0.2-1.3); Total Protein 5.9 g/dL (6.3-8.2)
[2020-04-14 05:51] LABS: C Reactive Protein 188.2 mg/L (<10.0); LDH 2804 U/L (313-618)
[2020-04-14] MEDS: LEVOTHYROXINE 50 MCG TAB PO SCH (05:56)
[2020-04-14] MEDS ORDERED: Potassium Replacement Protocol 1 EACH MISC MISCELLANE PRN (05:56)
[2020-04-14] MEDS: POTASSIUM CHLORIDE 10 MEQ in WATER FOR INJECTION 1 100ML.BAG IVPB SCH ×2 (06:11→08:54)
--- NOTE | 2020-04-14 06:39 | XR ---
EXAMINATION TYPE: XR chest 1V DATE OF EXAM: 04/14/2020 CLINICAL HISTORY: Difficulty breathing and covid pneumonia progress study. TECHNIQUE: Single AP portable upright view of the chest is obtained. COMPARISON: Chest x-ray and CTA chest from one day earlier FINDINGS: Faint multifocal increased opacities bilaterally redemonstrated, findings appreciated bett er on CT versus x-ray. No pleural effusion or pneumothorax identified bilaterally. Cardiac silhouette size stable and within normal limits without hypertrophic change in the aortic knob. Osseous structu res are intact. Overlying EKG leads redemonstrated. IMPRESSION: Persistent multifocal bilateral acute opacities consistent with known covid-19 infection. No significant change from one day earlier.
[2020-04-14] MEDS: INSULIN ASPART (NovoLOG) 100 UNIT/ML VIAL SQ SCH ×4 (07:03→21:11)
[2020-04-14] MEDS: ALBUTEROL HFA INHALER INHALATION SCH ×3 (08:41→20:14)
[2020-04-14] MEDS: SODIUM CHLORIDE 0.9% 1,000 ML IV SCH ×2 (08:54→21:12)
[2020-04-14] MEDS: ASCORBIC ACID 500 MG TAB PO SCH (08:55)
[2020-04-14] MEDS: ENOXAPARIN 40 MG/0.4 ML SYRINGE SQ SCH ×2 (08:56→20:58)
[2020-04-14] MEDS: ZINC SULFATE 220 MG CAP PO SCH (08:56)
[2020-04-14] MEDS: FAMOTIDINE 20 MG TAB PO SCH ×2 (08:56→20:58)
[2020-04-14] MEDS: dexAMETHasone 2 MG TAB PO SCH (08:56)
[2020-04-14] MEDS: LOSARTAN-HCTZ 50-12.5 MG 1 EACH TAB PO SCH (08:58)
[2020-04-14] MEDS: CHOLECALCIFEROL 1,000 UNIT TAB PO SCH (10:49)
[2020-04-14 12:22] LABS: Glucose,Whole Blood 136 mg/dL (75-99)
[2020-04-14] MEDS: MULTIVITAMINS, THERA 1 EACH TAB PO SCH (12:26)
[2020-04-14] MEDS: FOLIC ACID 1 MG TAB PO SCH (12:26)
[2020-04-14] MEDS: THIAMINE 100 MG TAB PO SCH (12:26)
[2020-04-14] MEDS: REMDESIVIR 100 MG in SODIUM CHLORIDE 0.9% 250 ML IVPB SCH (12:26)
--- NOTE | 2020-04-14 13:34 | P.PN ---
Subjective Progress Note Date: 04/14/20 Principal diagnosis: Acute hypoxic respiratory failure secondary to covid 19 pneumonitis This is a 69-year-old female with history of hypertension, hypothyroidism, patient presented with 1 week history of cough fever shortness of breath, decreased appetite, and intermittent episodes of diarrhea. Patient was diagnosed as having covid 19 infection. It's was done through the health Department. Patient presented to [facility] and was found to be hypoxic, O2 saturations was 80%, patient was placed on 12 L high flow nasal cannula, and arrangements were made to transfer the patient to [facility]. She had a CT angiogram of the chest, and there was no evidence of pulmonary embolism, however there was evidence of bilateral interstitial infiltrates consistent with covid 19 pneumonitis. Considering the diagnoses and considering the presentation, patient was admitted and this consult was initiated. Patient had multiple constitutional symptoms prior to admission however she did not lose sensation of taste or smell. She had mostly cough, shortness of breath, fever, diarrhea, and generalized aches and pains as well as extreme fatigue. Patient was reevaluated today on 04/13/2020, she seems to be extremely short of breath today. She has intermittent cough, and she is barely maintaining adequate O2 saturation in spite of being on a nonrebreather mask at 15 L flow. Hence after examining the patient and examining her chest x-ray, I have ron mmended transferring the patient to the ICU, she needs to be placed on airvo possibly BiPAP, and she may even require intubation and mechanical ventilation if her condition does not improve much soon. CBC showed leukocytosis with WBC of 15.3 hemoglobin is 17.2 index was abnormal renal profile is normal. Patient was reevaluated today on 04/14/2020, remains on relatively high FiO2, she is now on 60 L airvo, FiO2 of 90%, and her O2 saturation is 92-94% at best. Patient was placed on BiPAP last night, however she had anxiety attacks and panic-like attacks on BiPAP. Transition today to airvo, and seems to be doing better. So far the patient received 3 doses of REM to severe. And 2 units of convalescent plasma. Remains on dexamethasone 6 mg IV push daily and remains on Lovenox 40 mg twice a day. Patient also was Dry and received Lasix, diuresed over 1 L with Lasix. Her LDH is up to 804, CRP is down to 188. Patient remains empirically on ceftriaxone. CT of the chest showed significant airspace disease involving both lungs, not truly appreciated on the chest x-ray, but clearly seen to be quite impressive on the CT of the chest. Patient remains marginal at best. Patient may eventually require intubation, however at this point in time I would rather wait and continue to manage with less invasive supportive care measures. Objective - Vital Signs Vital signs: Vital Signs Temp 98.0 F 04/14/20 12:00 Pulse 82 04/14/20 13:00 Resp 33 H 04/14/20 13:00 BP 109/74 04/14/20 13:00 Pulse Ox 86 L 04/14/20 13:00 Intake & Output 04/13/20 04/14/20 04/14/20 18:59 06:59 18:59 Intake Total 1105 1144 950 Output Total 1925 1450 580 Balance -820 -306 370 Intake: IV 675 950 Potassium Chloride 10 meq 200 In Water For Injection 1 100ml.bag @ 100 mls/hr IVPB Q1H [facility] Rx#: [id number] Remdesivir 100 mg In 250 Sodium Chloride 0.9% 250 ml @ 250 mls/hr IVPB DAILY@1200 [facility] Rx#: [id number] Sodium Chloride 0.9% 1, 675 450 000 ml @ 75 mls/hr IV . [id number] [facility] Rx#:[id number] cefTRIAXone 1 gm In 50 Sodium Chloride 0.9% 50 ml @ 100 mls/hr IVPB Q24HR [facility] Rx#:[id number] Intake, IV Titration 625 75 Amount Remdesivir 100 mg In 250 Sodium Chloride 0.9% 250 ml @ 250 mls/hr IVPB DAILY@1200 [facility] Rx#: [id number] Sodium Chloride 0.9% 1, 375 75 000 ml @ 75 mls/hr IV . [id number] [facility] Rx#:[id number] Oral 480 Blood Product 394 Ffp Pher Conval Covid19 197 Acda 3 Unit [id number] Output: Urine 1925 1450 580 Other: Voiding Method Indwelling Catheter Indwelling Catheter Indwelling Catheter # Voids 1 - Exam Physical Exam: Revealed a 69-year-old female , on airvo slightly anxious. Head: Atraumatic normocephalic. HEENT:[Neck is supple.] [No neck masses.] [No thyromegaly.] [No JVD.] Her lack, EOMI, nonicteric. Chest: [Symmetrical chest expansion, crackles and rhonchi noted bilaterally Cardiac Exam: [Normal S1 and S2, no S3 gallop, no murmur.] Abdomen: [Soft, nontender, no megaly, no rebound, no guarding, normal bowel sounds.] Extremities: [No clubbing, no edema, no cyanosis.] Neurological Exam: [No focal neurologic deficit.] Alert and oriented 3. Psychiatric: Normal mood, affect and normal mental status examination. Skin: No rashes. - Labs CBC & Chem 7: 04/14/20 03:31 04/14/20 03:31 Labs: Abnormal Lab Results - Last 24 Hours (Table) 04/14/20 04/14/20 04/14/20 Range/Units 03: 03:31 12:20 WBC 11.9 H (3.8-10.6) k/uL Hgb 16.8 H (11.4-16.0) gm/dL Hct 49.5 H (34.0-46.0) % Neutrophils # 9.7 H (1.3-7.7) k/uL Lymphocytes # 0.9 L (1.0-4.8) k/uL Sodium 135 L (137-145) mmol/L BUN 24 H (7-17) mg/dL Glucose 119 H (74-99) mg/dL POC Glucose (mg/dL) 136 H (75-99) mg/dL Calcium 7.7 L (8.4-10.2) mg/dL AST 64 H (14-36) U/L Lactate Dehydrogenase 2804 H (313-618) U/L C-Reactive Protein 188.2 H (<10.0) mg/L Total Protein 5.9 L (6.3-8.2) g/dL Albumin 2.9 L (3.5-5.0) g/dL Microbiology - Last 24 Hours (Table) 04/11/20 18:09 Blood Culture - Preliminary Blood No Growth after 48 hours 04/11/20 18:00 Blood Culture - Preliminary Blood No Growth after 48 hours Assessment and Plan Assessment: Impression: Acute hypoxic respiratory failure secondary tocovid 19 pneumonitis. Elevated inflammatory markers including LDH and CRP secondary to above. History of hysterectomy. Remote history of nicotine dependence. Obesity with body index of 35. Elevated d-dimer but negative for pulmonary embolism. Recommendation: Continue to monitor in the ICU. Continue airvo, and titrate FiO2 accordingly.. Continue the present cocktail for covid 19 pneumonitis. Continue remdesivir Continue convalescent plasma, received 2 units so far. We'll continue Decadron, vitamin C, vitamin D, and zinc. Continue GI prophylaxis. Continue Lovenox. Will follow closely. Prognosis is guarded. Time with Patient: Less than 30
--- NOTE | 2020-04-14 15:53 | PN ---
PROGRESS NOTE DATE OF SERVICE: 04/14/2020 This 69-year-old woman who was admitted with COVID-19 pneumonia, bilateral pneumonia, is being closely monitored. Patient had worsening yesterday with hypoxia. The patient was transferred to ICU. The patient was started on remdesivir. The patient also had 2 units of convalescent COVID-[address] angio of the chest was repeated and showed no evidence of pulmonary embolism. I personally reviewed the CT scan, which showed extensive bilateral pneumonia. The patient is being closely monitored at this time. The patient is in the ICU. The patient is on AIRVO and high-flow oxygen. Past medical history reviewed. REVIEW OF SYSTEMS: CARDIOVASCULAR SYSTEM: No angina, palpitations. RESPIRATORY SYSTEM: As mentioned earlier. GI: As mentioned earlier. : No dysuria or retention. NERVOUS SYSTEM: No numbness, weakness. CURRENT MEDICATIONS: Reviewed. They include Tylenol, Ventolin, vitamin C, Rocephin, vitamin D3, Hexadrol, Lovenox, Pepcid, folic acid, Narcan, remdesivir. PHYSICAL EXAMINATION: Patient is alert, oriented x3. The pulse is 33, blood pressure 109/74, respiration 20, temperature 97.3, pulse ox 93% on 60% FiO2. HEENT: Conjunctivae normal. NECK: No jugular venous distention. CARDIOVASCULAR SYSTEM: S1, S2 muffled. RESPIRATORY SYSTEM: Breath sounds diminished at the bases. A few scattered rhonchi and crackles. ABDOMEN: Soft, non-tender. LEGS: No edema. No swelling. NERVOUS SYSTEM: No focal deficit. LABS: WBC 11.9, hemoglobin 16.8. D-dimer 0.5. Sodium 135. LDH is 2804. ASSESSMENT: 1. Acute COVID-19 infection as well as bilateral interstitial pneumonia with acute hypoxic respiratory failure, present on admission. 2. On remdesivir and status post convalescent plasma. 3. Increased hemoglobin, possibly polycythemia, present on admission. 4. Increased D-dimer without any evidence of acute pulmonary embolism. 5. Hyponatremia. 6. Mild metabolic acidosis. 7. Elevated LDH and CRP, inflammatory markers of COVID-19. 8. History of hysterectomy. 9. History of bilateral posterior tibial tendon repair. 10.Remote history of nicotine dependence. 11.Obesity with body mass index of 35. 12.FULL CODE. RECOMMENDATIONS AND DISCUSSION: I recommend to continue current medications, continue with the monitoring, symptomatic treatment. Continue with remdesivir. Continue with empiric antibiotics. Procalcitonin is slightly elevated at 0.10. Otherwise, continue to monitor closely. Cultures. We will closely monitor with Infectious Disease as well as Pulmonary. Guarded prognosis because of multiple complex medical issues. Further recommendations to follow. A copy of this dictation is being forwarded to Dr. Nilay Crabtree. SERGEYL / DELANEYN: [id number] /
[2020-04-14 17:59] LABS: Glucose,Whole Blood 146 mg/dL (75-99)
[2020-04-14] MEDS ORDERED: cloNIDine 0.1 MG/24HR PATCH TRANSDERM SCH (19:00)
[2020-04-14 21:06] LABS: Glucose,Whole Blood 155 mg/dL (75-99)
--- NOTE | 2020-04-14 22:00 | PN ---
PROGRESS NOTE DATE OF SERVICE: 04/14/2020 REASON FOR FOLLOWUP: COVID-19 pneumonia. INTERVAL HISTORY: The patient did have a problem with hypoxemia and required BiPAP last night. This morning she was on high-flow nasal cannula oxygen. Patient did complain of some shortness of breath and did have some cough, not bringing up any sputum. No vomiting and no diarrhea or any other changes reported by nursing staff. PHYSICAL EXAMINATION: Blood pressure 121/86, pulse 82, temperature 99.2. She is 89% on 2 L. General description is an elderly female up in the bed in no distress. RESPIRATORY SYSTEM: Unlabored breathing. Coarse breath sounds at the bases bilaterally. Heart S1-S2 regular rate rhythm ABDOMEN: Soft. No tenderness. EXTREMITIES: No edema of the feet. LABS: Hemoglobin 16.8, white count 11.9, BUN of 24, creatinine 0.65. DIAGNOSTIC IMPRESSION AND PLAN: Patient with acute respiratory failure which is multifactorial in this patient who did have a component of COVID-19 pneumonia, covered with remdesivir, dexamethasone, maintained high dose of steroids. Continue to monitor clinical course closely. MMODL / IJN: [id number] / KELSIE
[2020-04-15 04:44] LABS: Basophils # (A) 0.1 k/uL (0-0.2); Basophils % (A) 1 %; Eosinophils % (A) 0 %; HCT 48.6 % (34.0-46.0); HGB 15.6 gm/dL (11.4-16.0); Lymphocytes # (A) 1.2 k/uL (1.0-4.8); Lymphocytes % (A) 7 %; MCH 29.9 pg (25.0-35.0); MCHC 32.1 g/dL (31.0-37.0); MCV 93.3 fL (80.0-100.0); Mean Platelet Volume 8.2; Monocytes # (A) 0.6 k/uL (0-1.0); Monocytes % (A) 4 %; Neutrophils # (A) 13.7 k/uL (1.3-7.7); Neutrophils % (A) 86 %; Platelet Count 336 k/uL (150-450); RBC 5.21 m/uL (3.80-5.40); RDW 13.7 % (11.5-15.5); WBC 15.8 k/uL (3.8-10.6)
[2020-04-15 05:08] LABS: ALT 23 U/L (4-34); AST 56 U/L (14-36); African American GFR (CKD) >90 (>60 ml/min/1.73 sqM); Albumin 2.5 g/dL (3.5-5.0); Alkaline Phosphatase 60 U/L (38-126); Anion Gap 3 mmol/L; Blood Urea Nitrogen 21 mg/dL (7-17); Calcium 7.7 mg/dL (8.4-10.2); Carbon Dioxide 26 mmol/L (22-30); Chloride 104 mmol/L (98-107); Creatine Kinase 43 U/L (30-135); Glucose 97 mg/dL (74-99); Non-African American GFR(CKD) >90 (>60 ml/min/1.73 sqM); Potassium 4.2 mmol/L (3.5-5.1); Sodium 133 mmol/L (137-145); Total Bilirubin 0.9 mg/dL (0.2-1.3); Total Protein 5.4 g/dL (6.3-8.2)
[2020-04-15 05:23] LABS: LDH 2465 U/L (313-618)
[2020-04-15] MEDS: LEVOTHYROXINE 50 MCG TAB PO SCH (06:46)
[2020-04-15 06:54] LABS: Glucose,Whole Blood 87 mg/dL (75-99)
[2020-04-15] MEDS: INSULIN ASPART (NovoLOG) 100 UNIT/ML VIAL SQ SCH ×4 (07:11→21:10)
--- NOTE | 2020-04-15 07:12 | XR ---
EXAMINATION TYPE: XR chest 1V DATE OF EXAM: 04/15/2020 COMPARISON: 04/14/2020 INDICATION: Covid TECHNIQUE: Single frontal view of the chest is obtained. FINDINGS: The heart size is normal. The pulmonary vasculature is normal. Diffuse increased lung markings are present. IMPRESSION: 1. Diffuse bilateral increased lung markings can be compatible with atypical pneumonia.
[2020-04-15] MEDS: ALBUTEROL HFA INHALER INHALATION SCH ×3 (07:37→19:08)
[2020-04-15] MEDS: SODIUM CHLORIDE 0.9% 1,000 ML IV SCH ×2 (09:02→11:16)
[2020-04-15] MEDS: ASCORBIC ACID 500 MG TAB PO SCH (09:02)
[2020-04-15] MEDS: dexAMETHasone 2 MG TAB PO SCH (09:03)
[2020-04-15] MEDS: ENOXAPARIN 40 MG/0.4 ML SYRINGE SQ SCH ×2 (09:03→20:52)
[2020-04-15] MEDS: CHOLECALCIFEROL 1,000 UNIT TAB PO SCH (09:03)
[2020-04-15] MEDS: ZINC SULFATE 220 MG CAP PO SCH (09:04)
[2020-04-15] MEDS: FAMOTIDINE 20 MG TAB PO SCH ×2 (09:04→20:52)
[2020-04-15] MEDS: LOSARTAN-HCTZ 50-12.5 MG 1 EACH TAB PO SCH (09:04)
[2020-04-15 11:20] LABS: Glucose,Whole Blood 99 mg/dL (75-99)
[2020-04-15] MEDS: FOLIC ACID 1 MG TAB PO SCH (12:14)
[2020-04-15] MEDS: methylPREDNISolone SOD SUCCI 125 MG/2 ML VIAL IV SCH ×2 (12:14→18:01)
[2020-04-15] MEDS: MULTIVITAMINS, THERA 1 EACH TAB PO SCH (12:15)
[2020-04-15] MEDS: THIAMINE 100 MG TAB PO SCH (12:15)
[2020-04-15] MEDS: REMDESIVIR 100 MG in SODIUM CHLORIDE 0.9% 250 ML IVPB SCH (12:15)
[2020-04-15 12:17] LABS: Ferritin 2680.1 ng/mL (10.0-291.0)
--- NOTE | 2020-04-15 13:25 | P.PN ---
Subjective Progress Note Date: 04/15/20 Principal diagnosis: Acute hypoxic respiratory failure secondary to covid 19 pneumonitis This is a 69-year-old female with history of hypertension, hypothyroidism, patient presented with 1 week history of cough fever shortness of breath, decreased appetite, and intermittent episodes of diarrhea. Patient was diagnosed as having covid 19 infection. It's was done through the health Department. Patient presented to [facility] and was found to be hypoxic, O2 saturations was 80%, patient was placed on 12 L high flow nasal cannula, and arrangements were made to transfer the patient to [facility]. She had a CT angiogram of the chest, and there was no evidence of pulmonary embolism, however there was evidence of bilateral interstitial infiltrates consistent with covid 19 pneumonitis. Considering the diagnoses and considering the presentation, patient was admitted and this consult was initiated. Patient had multiple constitutional symptoms prior to admission however she did not lose sensation of taste or smell. She had mostly cough, shortness of breath, fever, diarrhea, and generalized aches and pains as well as extreme fatigue. Patient was reevaluated today on 04/13/2020, she seems to be extremely short of breath today. She has intermittent cough, and she is barely maintaining adequate O2 saturation in spite of being on a nonrebreather mask at 15 L flow. Hence after examining the patient and examining her chest x-ray, I have ron mmended transferring the patient to the ICU, she needs to be placed on airvo possibly BiPAP, and she may even require intubation and mechanical ventilation if her condition does not improve much soon. CBC showed leukocytosis with WBC of 15.3 hemoglobin is 17.2 index was abnormal renal profile is normal. Patient was reevaluated today on 04/14/2020, remains on relatively high FiO2, she is now on 60 L airvo, FiO2 of 90%, and her O2 saturation is 92-94% at best. Patient was placed on BiPAP last night, however she had anxiety attacks and panic-like attacks on BiPAP. Transition today to airvo, and seems to be doing better. So far the patient received 3 doses of REM to severe. And 2 units of convalescent plasma. Remains on dexamethasone 6 mg IV push daily and remains on Lovenox 40 mg twice a day. Patient also was Dry and received Lasix, diuresed over 1 L with Lasix. Her LDH is up to 804, CRP is down to 188. Patient remains empirically on ceftriaxone. CT of the chest showed significant airspace disease involving both lungs, not truly appreciated on the chest x-ray, but clearly seen to be quite impressive on the CT of the chest. Patient remains marginal at best. Patient may eventually require intubation, however at this point in time I would rather wait and continue to manage with less invasive supportive care measures. Reevaluated today on 04/15/2020, patient remains in the ICU. Patient remains on airvo at 60 L high flow, and 92% FiO2. Her O2 saturation is about 91%. Patient is feeling clinically better, however her chest x-ray continues to show evidence of interstitial bilateral infiltrates. Patient looks fairly comfortable. She has received full treatment for Covid 19 pneumonitis. She has received the full cocktail, and she also received convalescent plasma as well as remdesivir. Her Decadron today will be switched her Solu-Medrol. And she remains on Lovenox at 40 mg subcu twice a day. Clinically the patient is feeling better, but again her O2 saturation is extremely marginal, and I have a strong feeling that the patient may worsen and required intubation and mechanical ventilation. Hopefully not Objective - Vital Signs Vital signs: Vital Signs Temp 98 F 04/15/20 12:00 Pulse 84 04/15/20 13:00 Resp 20 04/15/20 13:00 BP 133/87 04/15/20 13:00 Pulse Ox 91 L 04/15/20 13:00 Intake & Output 04/14/20 04/15/20 04/15/20 18:59 06:59 18:59 Intake Total 7008 249 2925 Output Total 1020 940 400 Balance 305 -15 675 Weight 99.6 kg Intake: IV 1325 825 525 Potassium Chloride 10 meq 200 In Water For Injection 1 100ml.bag @ 100 mls/hr IVPB Q1H [facility] Rx#: [id number] Remdesivir 100 mg In 250 Sodium Chloride 0.9% 250 ml @ 250 mls/hr IVPB DAILY@1200 [facility] Rx#: [id number] Sodium Chloride 0.9% 1, 825 825 525 000 ml @ 75 mls/hr IV . [id number] [facility] Rx#:[id number] cefTRIAXone 1 gm In 50 Sodium Chloride 0.9% 50 ml @ 100 mls/hr IVPB Q24HR [facility] Rx#:[id number] Intake, IV Titration 300 Amount Remdesivir 100 mg In 250 Sodium Chloride 0.9% 250 ml @ 250 mls/hr IVPB DAILY@1200 [facility] Rx#: [id number] cefTRIAXone 1 gm In 50 Sodium Chloride 0.9% 50 ml @ 100 mls/hr IVPB Q24HR [facility] Rx#:[id number] Oral 100 250 Output: Urine 1020 940 400 Other: Voiding Method Indwelling Catheter Indwelling Catheter Indwelling Catheter # Bowel Movements 1 - Exam Physical Exam: Revealed a 69-year-old female , on airvo seems to be quite comfortable. Less anxious today Head: Atraumatic normocephalic. HEENT:[Neck is supple.] [No neck masses.] [No thyromegaly.] [No JVD.] Her lack, EOMI, nonicteric. Chest: [Symmetrical chest expansion, crackles and rhonchi noted bilaterally Cardiac Exam: [Normal S1 and S2, no S3 gallop, no murmur.] Abdomen: [Soft, nontender, no megaly, no rebound, no guarding, normal bowel sounds.] Extremities: [No clubbing, no edema, no cyanosis.] Neurological Exam: [No focal neurologic deficit.] Alert and oriented 3. Psychiatric: Normal mood, affect and normal mental status examination. Skin: No rashes. - Labs CBC & Chem 7: 04/15/20 04:00 04/15/20 04:00 Labs: Abnormal Lab Results - Last 24 Hours (Table) 04/14/20 04/14/20 04/15/20 Range/Units 17:58 21:04 04:00 WBC (3.8-10.6) k/uL Hct (34.0-46.0) % Neutrophils # (1.3-7.7) k/uL D-Dimer 0.94 H (<0.60) mg/L FEU Sodium (137-145) mmol/L BUN (7-17) mg/dL Creatinine (0.52-1.04) mg/dL POC Glucose (mg/dL) 146 H 155 H (75-99) mg/dL Calcium (8.4-10.2) mg/dL Ferritin (10.0-291.0) ng/mL AST (14-36) U/L Lactate Dehydrogenase (313-618) U/L C-Reactive Protein (<10.0) mg/L Total Protein (6.3-8.2) g/dL Albumin (3.5-5.0) g/dL 04/15/20 04/15/20 Range/Units 04:00 04:00 WBC 15.8 H (3.8-10.6) k/uL Hct 48.6 H (34.0-46.0) % Neutrophils # 13.7 H (1.3-7.7) k/uL D-Dimer (<0.60) mg/L FEU Sodium 133 L (137-145) mmol/L BUN 21 H (7-17) mg/dL Creatinine 0.50 L (0.52-1.04) mg/dL POC Glucose (mg/dL) (75-99) mg/dL Calcium 7.7 L (8.4-10.2) mg/dL Ferritin 2680.1 H (10.0-291.0) ng/mL AST 56 H (14-36) U/L Lactate Dehydrogenase 2465 H (313-618) U/L C-Reactive Protein 129.0 H (<10.0) mg/L Total Protein 5.4 L (6.3-8.2) g/dL Albumin 2.5 L (3.5-5.0) g/dL Microbiology - Last 24 Hours (Table) 04/11/20 18:09 Blood Culture - Preliminary Blood No Growth after 72 hours 04/11/20 18:00 Blood Culture - Preliminary Blood No Growth after 72 hours 04/13/20 14:58 Blood Culture - Preliminary Blood No Growth after 24 hours Assessment and Plan Assessment: Impression: Acute hypoxic respiratory failure secondary to covid 19 pneumonitis. Elevated inflammatory markers including LDH and CRP secondary to above. History of hysterectomy. Remote history of nicotine dependence. Obesity with body index of 35. Elevated d-dimer but negative for pulmonary embolism. Recommendation: Continue to monitor in the ICU. Continue airvo, and titrate FiO2 accordingly.. Continue the present cocktail for covid 19 pneumonitis. Continue remdesivir, today is day #4. convalescent plasma, received 2 units so far. Switch Decadron to Solu-Medrol, and continue, vitamin C, vitamin D, and zinc. Continue GI prophylaxis. Continue Lovenox. Or 2 mg subcu twice a day Will follow closely. Prognosis is guarded. We'll continue to follow in the ICU Time with Patient: Less than 30
--- NOTE | 2020-04-15 13:42 | PN ---
PROGRESS NOTE DATE OF SERVICE: 04/15/2020 This 69-year-old woman who was admitted with acute COVID-19 infection with bilateral interstitial pneumonia is monitored in the ICU at this time. The patient is on remdesivir. The patient is also hypoxic. Patient is on AIRVO. The patient is saturating 96% on 60% FiO2. The most recent chest x-ray which was reviewed personally by me showed bilateral interstitial shadows. Multiple consultants are following the patient closely. The microbiology cultures are negative so far. PAST MEDICAL HISTORY: Reviewed. REVIEW OF SYSTEMS: CARDIOVASCULAR SYSTEM: No angina. RESPIRATORY SYSTEM: As mentioned earlier. GI: No nausea. : No dysuria. NERVOUS SYSTEM: No numbness or weakness. CURRENT MEDICATIONS: Current medications are reviewed and include: Tylenol, Ventolin, vitamin C, Rocephin, Lovenox, Pepcid, folic acid, Hyzaar, NovoLog, Synthroid. PHYSICAL EXAMINATION: Patient is alert and oriented x3. Pulse is 83, blood pressure 136/82, respiration 25, temperature 98 degrees, pulse ox 96% on 60% FiO2. HEENT: Conjunctivae normal. NECK: No jugular venous distention. CARDIOVASCULAR: S1, S2 muffled. RESPIRATORY: Breath sounds diminished at the bases. A few scattered rhonchi and crackles. ABDOMEN: Soft. LEGS: No edema. NERVOUS SYSTEM: No focal deficits. LABS: WBC 15.8. D-dimer is 0.94. Sodium is 133. C-reactive protein is 129. ASSESSMENT: 1. Acute COVID-19 infection as well as bilateral interstitial pneumonia with acute hypoxic respiratory failure, present on admission. 2. On remdesivir and convalescent plasma. 3. Increased D-dimer without any evidence of acute pulmonary embolism. 4. Hyponatremia. 5. Elevated inflammatory markers of COVID-19, such as LDH, CRP. 6. Mild metabolic acidosis, on admission, improved. 7. History of hysterectomy. 8. History of bilateral posterior tibial tendon repair. 9. Remote history of nicotine dependence. 10.Obesity with body mass index of 35. 11.Increased WBC. RECOMMENDATION AND DISCUSSION: This 69-year-old woman who presented with multiple complex medical issues, we will monitor the patient closely. Continue the current medications. Continue symptomatic treatment. Will continue with empiric antibiotics, high-dose IV steroids, remdesivir. Continue the rest of medications. We will closely monitor. The BUN and creatinine has improved significantly. I would recommend to stop the IV fluids and continue to monitor. Guarded prognosis because of multiple complex medical issues. Further recommendations to follow. SEGREYL / IJN: [id number] /
[2020-04-15 17:13] LABS: Glucose,Whole Blood 163 mg/dL (75-99)
[2020-04-15] MEDS ORDERED: ONDANSETRON 4 MG/2 ML VIAL ONE (20:00)
[2020-04-15] MEDS ORDERED: ONDANSETRON 4 MG/2 ML VIAL IVP PRN (20:08)
[2020-04-15 20:59] LABS: Glucose,Whole Blood 162 mg/dL (75-99)
--- NOTE | 2020-04-15 22:30 | PN ---
PROGRESS NOTE DATE OF SERVICE: 04/15/2020 REASON FOR FOLLOWUP: COVID-19 pneumonia. INTERVAL HISTORY: The patient is currently afebrile. Still complaining of shortness of breath and is requiring high-flow nasal cannula oxygen as well as BiPAP. The patient denies having any chest pain. Minimal cough. No abdominal pain or diarrhea. PHYSICAL EXAMINATION: Blood pressure 152/90 with a pulse of 65, temperature 97.4. She is 90% on 60% FiO2. General description is an elderly female up in the chair in no distress. Respiratory system: Unlabored breathing, decreased breath sounds in the base. No wheeze. Heart S1, S2. Regular rate and rhythm. Abdomen soft, no tenderness. LABS: Hemoglobin 16.1, white count 15.8, BUN of 21, creatinine 0.50. IMPRESSION/PLAN: Patient with acute respiratory failure which is multifactorial in this patient who did have a component of acute COVID-19 pneumonia. Chest x-ray did not show any worsening. Patient is covered with Lovenox, Solu-Medrol, Remdesivir to continue along with respiratory support and monitor clinical course closely. MMODL / IJN: [id number] /
[2020-04-16] MEDS: methylPREDNISolone SOD SUCCI 125 MG/2 ML VIAL IV SCH ×4 (00:16→17:39)
[2020-04-16 07:00] LABS: Glucose,Whole Blood 140 mg/dL (75-99)
[2020-04-16] MEDS: LEVOTHYROXINE 50 MCG TAB PO SCH (07:07)
[2020-04-16] MEDS: INSULIN ASPART (NovoLOG) 100 UNIT/ML VIAL SQ SCH ×4 (07:07→21:41)
[2020-04-16] MEDS: ALBUTEROL HFA INHALER INHALATION SCH ×3 (07:09→18:03)
[2020-04-16 07:22] LABS: Basophils # (A) 0.2 k/uL (0-0.2); Basophils % (A) 1 %; Eosinophils % (A) 0 %; HCT 51.7 % (34.0-46.0); HGB 16.8 gm/dL (11.4-16.0); Lymphocytes # (A) 0.9 k/uL (1.0-4.8); Lymphocytes % (A) 3 %; MCH 30.4 pg (25.0-35.0); MCHC 32.5 g/dL (31.0-37.0); MCV 93.6 fL (80.0-100.0); Mean Platelet Volume 8.1; Monocytes # (A) 0.7 k/uL (0-1.0); Monocytes % (A) 3 %; Neutrophils % (A) 92 %; Platelet Count 340 k/uL (150-450); RBC 5.52 m/uL (3.80-5.40); RDW 13.4 % (11.5-15.5); WBC 26.2 k/uL (3.8-10.6)
--- NOTE | 2020-04-16 08:20 | XR ---
EXAMINATION TYPE: XR chest 1V DATE OF EXAM: 04/16/2020 COMPARISON: 04/15/2020 INDICATION: Covid TECHNIQUE: Single frontal view of the chest is obtained. FINDINGS: The heart size is normal. The pulmonary vasculature is normal. Diffuse increased lung markings are present bilaterally. Findings are similar to comparison IMPRESSION: 1. Diffuse increased lung markings, stable from comparison.
[2020-04-16] MEDS: ASCORBIC ACID 500 MG TAB PO SCH (08:33)
[2020-04-16] MEDS: CHOLECALCIFEROL 1,000 UNIT TAB PO SCH (08:33)
[2020-04-16] MEDS: ENOXAPARIN 40 MG/0.4 ML SYRINGE SQ SCH ×2 (08:33→21:41)
[2020-04-16] MEDS: FAMOTIDINE 20 MG TAB PO SCH ×2 (08:34→21:41)
[2020-04-16] MEDS: LOSARTAN-HCTZ 50-12.5 MG 1 EACH TAB PO SCH (08:34)
[2020-04-16] MEDS: ZINC SULFATE 220 MG CAP PO SCH (08:34)
[2020-04-16 08:47] LABS: ALT 29 U/L (4-34); AST 66 U/L (14-36); African American GFR (CKD) >90 (>60 ml/min/1.73 sqM); Albumin 2.9 g/dL (3.5-5.0); Alkaline Phosphatase 76 U/L (38-126); Anion Gap 8 mmol/L; Blood Urea Nitrogen 22 mg/dL (7-17); Calcium 8.2 mg/dL (8.4-10.2); Carbon Dioxide 27 mmol/L (22-30); Chloride 101 mmol/L (98-107); Creatine Kinase 53 U/L (30-135); Glucose 139 mg/dL (74-99); Non-African American GFR(CKD) >90 (>60 ml/min/1.73 sqM); Potassium 4.5 mmol/L (3.5-5.1); Sodium 136 mmol/L (137-145); Total Bilirubin 1.1 mg/dL (0.2-1.3); Total Protein 6.2 g/dL (6.3-8.2)
[2020-04-16 09:32] LABS: C Reactive Protein 193.4 mg/L (<10.0); LDH 3134 U/L (313-618)
[2020-04-16] MEDS ORDERED: FUROSEMIDE 10 MG/ML 4 ML VIAL IV STA (09:49)
[2020-04-16 12:13] LABS: Glucose,Whole Blood 164 mg/dL (75-99)
[2020-04-16] MEDS: MULTIVITAMINS, THERA 1 EACH TAB PO SCH (12:20)
[2020-04-16] MEDS: FOLIC ACID 1 MG TAB PO SCH (12:20)
[2020-04-16] MEDS: REMDESIVIR 100 MG in SODIUM CHLORIDE 0.9% 250 ML IVPB SCH (12:20)
[2020-04-16] MEDS: THIAMINE 100 MG TAB PO SCH (12:20)
--- NOTE | 2020-04-16 13:22 | P.PN ---
Subjective Progress Note Date: 04/16/20 Principal diagnosis: Acute hypoxic respiratory failure secondary to covid 19 pneumonitis This is a 69-year-old female with history of hypertension, hypothyroidism, patient presented with 1 week history of cough fever shortness of breath, decreased appetite, and intermittent episodes of diarrhea. Patient was diagnosed as having covid 19 infection. It's was done through the health Department. Patient presented to [facility] and was found to be hypoxic, O2 saturations was 80%, patient was placed on 12 L high flow nasal cannula, and arrangements were made to transfer the patient to [facility]. She had a CT angiogram of the chest, and there was no evidence of pulmonary embolism, however there was evidence of bilateral interstitial infiltrates consistent with covid 19 pneumonitis. Considering the diagnoses and considering the presentation, patient was admitted and this consult was initiated. Patient had multiple constitutional symptoms prior to admission however she did not lose sensation of taste or smell. She had mostly cough, shortness of breath, fever, diarrhea, and generalized aches and pains as well as extreme fatigue. Patient was reevaluated today on 04/13/2020, she seems to be extremely short of breath today. She has intermittent cough, and she is barely maintaining adequate O2 saturation in spite of being on a nonrebreather mask at 15 L flow. Hence after examining the patient and examining her chest x-ray, I have ron mmended transferring the patient to the ICU, she needs to be placed on airvo possibly BiPAP, and she may even require intubation and mechanical ventilation if her condition does not improve much soon. CBC showed leukocytosis with WBC of 15.3 hemoglobin is 17.2 index was abnormal renal profile is normal. Patient was reevaluated today on 04/14/2020, remains on relatively high FiO2, she is now on 60 L airvo, FiO2 of 90%, and her O2 saturation is 92-94% at best. Patient was placed on BiPAP last night, however she had anxiety attacks and panic-like attacks on BiPAP. Transition today to airvo, and seems to be doing better. So far the patient received 3 doses of REM to severe. And 2 units of convalescent plasma. Remains on dexamethasone 6 mg IV push daily and remains on Lovenox 40 mg twice a day. Patient also was Dry and received Lasix, diuresed over 1 L with Lasix. Her LDH is up to 804, CRP is down to 188. Patient remains empirically on ceftriaxone. CT of the chest showed significant airspace disease involving both lungs, not truly appreciated on the chest x-ray, but clearly seen to be quite impressive on the CT of the chest. Patient remains marginal at best. Patient may eventually require intubation, however at this point in time I would rather wait and continue to manage with less invasive supportive care measures. Reevaluated today on 04/15/2020, patient remains in the ICU. Patient remains on airvo at 60 L high flow, and 92% FiO2. Her O2 saturation is about 91%. Patient is feeling clinically better, however her chest x-ray continues to show evidence of interstitial bilateral infiltrates. Patient looks fairly comfortable. She has received full treatment for Covid 19 pneumonitis. She has received the full cocktail, and she also received convalescent plasma as well as remdesivir. Her Decadron today will be switched her Solu-Medrol. And she remains on Lovenox at 40 mg subcu twice a day. Clinically the patient is feeling better, but again her O2 saturation is extremely marginal, and I have a strong feeling that the patient may worsen and required intubation and mechanical ventilation. Hopefully not Reevaluated today on 04/16/2020, patient remains in the ICU, remains marginal at best. She is still on high flow oxygen, airvo at 60 L/m flow and 92% FiO2. And her O2 saturation is in the low 90s. Surprisingly her white count went up from 15-26. Patient is on Rocephin, and I believe the leukocytosis is most likely related to steroids. Patient did receive remdesivir, she also received 2 units of convalescent plasma. Chest x-ray continues to show evidence of interstitial infiltrates bilaterally. Clinically the patient is doing surprisingly better than expected, she seems to be very comfortable, and in no distress. She is now on day #5 of remdesivir. CBC is noted and basic metabolic profile is normal. LDH is elevated at 3134, and C-reactive protein is 193 Objective - Vital Signs Vital signs: Vital Signs Temp 98.5 F 04/16/20 08:00 Pulse 69 04/16/20 09:00 Resp 10 L 04/16/20 09:00 BP 123/78 04/16/20 09:00 Pulse Ox 91 L 04/16/20 09:00 Intake & Output 04/15/20 04/16/20 04/16/20 18:59 06:59 18:59 Intake Total 1150 100 120 Output Total 725 840 200 Balance 425 -740 -80 Weight 99.4 kg 99.4 kg Intake: IV 600 0 120 Sodium Chloride 0.9% 1, 600 0 20 000 ml @ 75 mls/hr IV . [id number] [facility] Rx#:[id number] cefTRIAXone 1 gm In 100 Sodium Chloride 0.9% 50 ml @ 100 mls/hr IVPB Q24HR [facility] Rx#:[id number] Intake, IV Titration 300 Amount Remdesivir 100 mg In 250 Sodium Chloride 0.9% 250 ml @ 250 mls/hr IVPB DAILY@1200 [facility] Rx#: [id number] cefTRIAXone 1 gm In 50 Sodium Chloride 0.9% 50 ml @ 100 mls/hr IVPB Q24HR [facility] Rx#:[id number] Oral 250 100 Output: Urine 725 790 200 Emesis 50 Other: Voiding Method Indwelling Catheter Indwelling Catheter Indwelling Catheter # Bowel Movements 1 1 - Exam Physical Exam: Revealed a 69-year-old female , on airvo Seems comfortable. Head: Atraumatic normocephalic. HEENT:[Neck is supple.] [No neck masses.] [No thyromegaly.] [No JVD.] Her lack, EOMI, nonicteric. Chest: [Symmetrical chest expansion, crackles and rhonchi noted bilaterally Cardiac Exam: [Normal S1 and S2, no S3 gallop, no murmur.] Abdomen: [Soft, nontender, no megaly, no rebound, no guarding, normal bowel sounds.] Extremities: [No clubbing, no edema, no cyanosis.] Neurological Exam: [No focal neurologic deficit.] Alert and oriented 3. Psychiatric: Normal mood, affect and normal mental status examination. Skin: No rashes. - Labs CBC & Chem 7: 04/16/20 06:41 04/16/20 06:41 Labs: Abnormal Lab Results - Last 24 Hours (Table) 04/15/20 04/15/20 04/16/20 Range/Units 17:11 20:57 06:41 WBC 26.2 H (3.8-10.6) k/uL RBC 5.52 H (3.80-5.40) m/uL Hgb 16.8 H (11.4-16.0) gm/dL Hct 51.7 H (34.0-46.0) % Neutrophils # 24.0 H (1.3-7.7) k/uL Lymphocytes # 0.9 L (1.0-4.8) k/uL Sodium (137-145) mmol/L BUN (7-17) mg/dL Glucose (74-99) mg/dL POC Glucose (mg/dL) 163 H 162 H (75-99) mg/dL Calcium (8.4-10.2) mg/dL AST (14-36) U/L Lactate Dehydrogenase (313-618) U/L C-Reactive Protein (<10.0) mg/L Total Protein (6.3-8.2) g/dL Albumin (3.5-5.0) g/dL 04/16/20 04/16/20 04/16/20 Range/Units 06:41 06:59 12:11 WBC (3.8-10.6) k/uL RBC (3.80-5.40) m/uL Hgb (11.4-16.0) gm/dL Hct (34.0-46.0) % Neutrophils # (1.3-7.7) k/uL Lymphocytes # (1.0-4.8) k/uL Sodium 136 L (137-145) mmol/L BUN 22 H (7-17) mg/dL Glucose 139 H (74-99) mg/dL POC Glucose (mg/dL) 140 H 164 H (75-99) mg/dL Calcium 8.2 L (8.4-10.2) mg/dL AST 66 H (14-36) U/L Lactate Dehydrogenase 3134 H (313-618) U/L C-Reactive Protein 193.4 H (<10.0) mg/L Total Protein 6.2 L (6.3-8.2) g/dL Albumin 2.9 L (3.5-5.0) g/dL Microbiology - Last 24 Hours (Table) 04/11/20 18:09 Blood Culture - Preliminary Blood No Growth after 96 hours 04/11/20 18:00 Blood Culture - Preliminary Blood No Growth after 96 hours 01/05/21 14:58 Blood Culture - Preliminary Blood No Growth after 48 hours Assessment and Plan Assessment: Impression: Acute hypoxic respiratory failure secondary to covid 19 pneumonitis. Elevated inflammatory markers including LDH and CRP secondary to above. History of hysterectomy. Remote history of nicotine dependence. Obesity with body index of 35. Elevated d-dimer but negative for pulmonary embolism. Recommendation: Continue to monitor in the ICU. Continue airvo, and titrate FiO2 accordingly.. Continue the present cocktail for covid 19 pneumonitis. Continue remdesivir, today is day #5 convalescent plasma, received 2 units so far. Continue Solu-Medrol, and continue, vitamin C, vitamin D, and zinc. Continue GI prophylaxis. Continue Lovenox. Will follow closely. Prognosis is guarded. We'll continue to follow in the ICU Time with Patient: Less than 30
[2020-04-16 17:49] LABS: Glucose,Whole Blood 174 mg/dL (75-99)
--- NOTE | 2020-04-16 18:26 | PN ---
PROGRESS NOTE DATE OF SERVICE: 04/16/2020 This 69-year-old woman was admitted with the COVID-19 pneumonia, bilateral pneumonia and acute hypoxic respiratory failure. Patient has extensive bilateral interstitial viral pneumonia. The patient is on an Airvo and Dr. Motta is following the patient. The patient is getting convalescent plasma. Patient also receiving Remdesivir. The most recent chest x-ray which I reviewed personally showed extensive bilateral interstitial lesions at this time. Otherwise, lab hernandez, WBC 26.2, possibly a manifestation of IV steroids. Inflammatory markers of COVID-19 still elevated. Basic cultures negative. The patient is on empiric antibiotics. Procalcitonin was high. Patient is on IV steroids also. PAST MEDICAL HISTORY: Reviewed. REVIEW OF SYSTEMS: CARDIOVASCULAR: No angina. RESPIRATORY: As mentioned early. GI: No nausea. : No dysuria. NERVOUS SYSTEM: No numbness or weakness. CURRENT MEDICATIONS: Reviewed include Tylenol, vitamin C, Rocephin, Lovenox, Synthroid, Solu-Medrol, multivitamin, vitamin B1 and Remdesivir. PHYSICAL EXAM: Patient is alert, oriented x3. Pulse is 75, blood pressure 140/80, respiration 27, temp is normal, pulse ox 91% on room Airvo. \ HEENT: Conjunctivae normal. Oral mucosa moist. NECK: No jugular venous distention. No lymph node enlargement. CARDIOVASCULAR: S1, S2, muffled. No S3, no S4, RESPIRATORY: Diminished breath sounds at the bases. Bilateral scattered rhonchi and crackles. ABDOMEN: Soft, nontender. LEGS: No edema, no swelling. NERVOUS SYSTEM: No focal deficits. LABS: WBC 26, hemoglobin is 16.8, sodium is 136, glucose 139. ASSESSMENT: 1. Acute COVID-19 infection as well as bilateral interstitial pneumonia with acute hypoxic respiratory failure, present on admission, on Remdesivir and convalescent plasma. 2. Increased D-dimer without any evidence of acute pulmonary embolism. 3. Hyponatremia. 4. Increased WBC. 5. Elevated inflammatory markers of COVID-19 such as LDH and CRP. 6. Mild metabolic acidosis on admission, improved. 7. History of hysterectomy. 8. History of bilateral posterior tibial tendon repair. 9. Remote history of nicotine dependence. 10.Obesity with body mass index of 35. 11.FULL CODE. RECOMMENDATIONS AND DISCUSSION: Recommend to continue current medications, continue symptomatic treatment. Otherwise, at this time I recommend continue with antibiotics, continue with antivirals, bronchodilators, IV steroids, monitor blood sugars closely. Prognosis guarded because of multiple complex medical issues. Further recommendations to follow. MMODL / IJN: [id number] /
[2020-04-16 21:11] LABS: Glucose,Whole Blood 169 mg/dL (75-99)
--- NOTE | 2020-04-16 22:26 | PN ---
PROGRESS NOTE DATE OF SERVICE: 04/16/2020 REASON FOR FOLLOWUP: Acute COVID-19 pneumonia. INTERVAL HISTORY: Patient is currently afebrile. The patient is breathing more comfortably. The patient denies having any chest pain. She did have some cough, not bringing up any sputum. No abdominal pain or any diarrhea. PHYSICAL EXAMINATION: Blood pressure is 121/77 with a pulse of 73, temperature 98. She is 92% on 50% FiO2. General description is an elderly female up in the chair in no distress. Respiratory system: Unlabored breathing. A few coarse crackles at the bases. No wheeze. HEART: S1, S2. Regular rate and rhythm. ABDOMEN: Soft, no tenderness. LABS: BUN of 22, creatinine 0.58. AST 66. DIAGNOSTIC IMPRESSION/PLAN: Patient with acute respiratory failure which is multifactorial in this patient with acute COVID-19 pneumonia and concern for possible as the patient did have elevated inflammatory markers. Currently on Solu-Medrol to continue along with Lovenox and complete a 5-day course of Remdesivir. Monitor clinical course closely. Continue supportive care. MMODL / IJN: [id number] / KELSIE
[2020-04-17] MEDS: methylPREDNISolone SOD SUCCI 125 MG/2 ML VIAL IV SCH ×2 (00:02→06:56)
[2020-04-17 04:57] LABS: Basophils # (A) 0.2 k/uL (0-0.2); Basophils % (A) 1 %; Eosinophils % (A) 0 %; HCT 50.9 % (34.0-46.0); HGB 16.9 gm/dL (11.4-16.0); Lymphocytes # (A) 0.9 k/uL (1.0-4.8); Lymphocytes % (A) 3 %; MCH 30.7 pg (25.0-35.0); MCHC 33.2 g/dL (31.0-37.0); MCV 92.6 fL (80.0-100.0); Mean Platelet Volume 7.9; Monocytes # (A) 0.9 k/uL (0-1.0); Monocytes % (A) 3 %; Neutrophils # (A) 29.5 k/uL (1.3-7.7); Neutrophils % (A) 93 %; Platelet Count 331 k/uL (150-450); RBC 5.49 m/uL (3.80-5.40); RDW 13.5 % (11.5-15.5); WBC 31.8 k/uL (3.8-10.6)
[2020-04-17 06:02] LABS: ALT 33 U/L (4-34); AST 61 U/L (14-36); African American GFR (CKD) >90 (>60 ml/min/1.73 sqM); Albumin 2.7 g/dL (3.5-5.0); Alkaline Phosphatase 82 U/L (38-126); Anion Gap 5 mmol/L; Blood Urea Nitrogen 25 mg/dL (7-17); C Reactive Protein 84.7 mg/L (<10.0); Calcium 8.3 mg/dL (8.4-10.2); Carbon Dioxide 30 mmol/L (22-30); Chloride 100 mmol/L (98-107); Creatine Kinase 110 U/L (30-135); Glucose 160 mg/dL (74-99); Non-African American GFR(CKD) >90 (>60 ml/min/1.73 sqM); Potassium 4.1 mmol/L (3.5-5.1); Sodium 135 mmol/L (137-145); Total Protein 5.9 g/dL (6.3-8.2)
[2020-04-17 06:16] LABS: LDH 2452 U/L (313-618)
[2020-04-17 06:54] LABS: Glucose,Whole Blood 155 mg/dL (75-99)
[2020-04-17] MEDS: LEVOTHYROXINE 50 MCG TAB PO SCH (06:56)
[2020-04-17] MEDS: INSULIN ASPART (NovoLOG) 100 UNIT/ML VIAL SQ SCH ×4 (06:56→20:33)
--- NOTE | 2020-04-17 07:10 | XR ---
EXAMINATION TYPE: XR chest 1V DATE OF EXAM: 04/17/2020 COMPARISON: 04/16/2020 HISTORY: Cough TECHNIQUE: Single frontal view of the chest is obtained. FINDINGS: Diffuse interstitial pattern is stable. Heart size normal. No pleural effusion or pneumoth orax. Atherosclerotic change aorta. IMPRESSION: Stable diffuse interstitial pattern correlate for interstitial pneumonia.
[2020-04-17] MEDS: ASCORBIC ACID 500 MG TAB PO SCH (09:03)
[2020-04-17] MEDS: ENOXAPARIN 40 MG/0.4 ML SYRINGE SQ SCH (09:04)
[2020-04-17] MEDS: LOSARTAN-HCTZ 50-12.5 MG 1 EACH TAB PO SCH (09:04)
[2020-04-17] MEDS: FAMOTIDINE 20 MG TAB PO SCH ×2 (09:04→20:08)
[2020-04-17] MEDS: CHOLECALCIFEROL 1,000 UNIT TAB PO SCH (09:04)
[2020-04-17] MEDS: ZINC SULFATE 220 MG CAP PO SCH (09:04)
[2020-04-17] MEDS: ALBUTEROL HFA INHALER INHALATION SCH ×3 (09:17→19:19)
[2020-04-17] MEDS ORDERED: ENOXAPARIN 30 MG/0.3 ML SYRINGE SQ STA (11:59)
[2020-04-17 12:31] LABS: Ferritin 3224.5 ng/mL (10.0-291.0)
[2020-04-17 12:44] LABS: Glucose,Whole Blood 177 mg/dL (75-99)
[2020-04-17] MEDS: MULTIVITAMINS, THERA 1 EACH TAB PO SCH (12:50)
[2020-04-17] MEDS: THIAMINE 100 MG TAB PO SCH (12:50)
[2020-04-17] MEDS: FOLIC ACID 1 MG TAB PO SCH (12:50)
--- NOTE | 2020-04-17 13:03 | P.PN ---
Subjective Progress Note Date: 04/17/20 Principal diagnosis: COVID pneumonia Ms. Mccoy is a 69-year-old female with a past medical history of hypertension and thyroid disorder admitted to the hospital for acute hypoxic respiratory failure secondary to COVID 19 pneumonia. Patient has extensive bilateral interstitial pneumonia. She is on a low and pulmonary Dr. Mathews is following the patient. Patient received a convalescent plasma, is also on Remdesivir. On 04/17/2019- This morning patient was evaluated in the ICU. Patient is comfortably sitting in a chair states that her breathing is improving gradually. She denies having any chest pain or palpitations. No cough or hemoptysis. She denies having any swelling or for lower extremities. No abdominal pain nausea vomiting or diarrhea. She denies having any dysuria or hematuria, she has a Bryan's catheter in place. On reviewing her vitals temperature 98.1 heart rate 75 is 5817, blood pressure 1:30 bradycardia. Saturating at 96% on a Aervo -60%. Active Medications Acetaminophen (Acetaminophen Tab 325 Mg Tab) 650 mg PO Q6HR PRN PRN Reason: Mild Pain or Fever > 100.5 Albuterol Sulfate (Albuterol Hfa Inhaler) 2 puff INHALATION RT-TID [facility] Last Admin: 04/17/20 09:17 Dose: 2 puff Documented by: Ascorbic Acid (Ascorbic Acid 500 Mg Tab) 250 mg PO DAILY [facility] Last Admin: 04/17/20 09:03 Dose: 250 mg Documented by: Cholecalciferol (Cholecalciferol 1,000 Unit Tab) 1,000 unit PO DAILY [facility] Last Admin: 04/17/20 09:04 Dose: 1,000 unit Documented by: Enoxaparin Sodium (Enoxaparin 60 Mg/0.6 Ml Syringe) 60 mg SQ BID [facility] Famotidine (Famotidine 20 Mg Tab) 20 mg PO BID [facility] Last Admin: 04/17/20 09:04 Dose: 20 mg Documented by: Folic Acid (Folic Acid 1 Mg Tab) 1 mg PO DAILY@1200 [facility] Last Admin: 04/17/20 12:50 Dose: 1 mg Documented by: HCTZ/Losartan Potassium (Losartan-Hctz 50-12.5 Mg 1 Each Tab) 1 each PO DAILY [facility] Last Admin: 04/17/20 09:04 Dose: 1 each Documented by: Insulin Aspart (Insulin Aspart (Novolog) 100 Unit/Ml Vial) 0 unit SQ ACHS [facility]; Protocol Last Admin: 04/17/20 12:50 Dose: 4 unit Documented by: Levothyroxine Sodium (Levothyroxine 50 Mcg Tab) 50 mcg PO DAILY@0630 [facility] Last Admin: 04/17/20 06:56 Dose: 50 mcg Documented by: Methylprednisolone Sodium Succinate (Methylprednisolone Sod Succi 40 Mg/Ml 1 Ml Vial) 40 mg IV Q12HR [facility] Miscellaneous Information (Potassium Replacement Protocol 1 Each Misc) 1 each MISCELLANE DAILY PRN; Protocol PRN Reason: Per Protocol Multivitamins (Multivitamins, Thera 1 Each Tab) 1 each PO DAILY@1200 [facility] Last Admin: 04/17/20 12:50 Dose: 1 each Documented by: Naloxone HCl (Naloxone 0.4 Mg/Ml 1 Ml Vial) 0.2 mg IV Q2M PRN PRN Reason: Opioid Reversal Ondansetron HCl (Ondansetron 4 Mg/2 Ml Vial) 4 mg IVP Q6HR PRN PRN Reason: Nausea And Vomiting Thiamine HCl (Thiamine 100 Mg Tab) 100 mg PO DAILY@1200 [facility] Last Admin: 04/17/20 12:50 Dose: 100 mg Documented by: Zinc Sulfate (Zinc Sulfate 220 Mg Cap) 220 mg PO DAILY [facility] Last Admin: 04/17/20 09:04 Dose: 220 mg Documented by: Objective - Vital Signs Vital signs: Vital Signs Temp 98.1 F 04/17/20 12:00 Pulse 75 04/17/20 12:00 Resp 17 04/17/20 12:00 BP 130/83 04/17/20 12:00 Pulse Ox 96 04/17/20 12:00 Intake & Output 04/16/20 04/17/20 04/17/20 18:59 06:59 18:59 Intake Total 370 300 Output Total 2390 575 250 Balance -2019 -250 Weight 99.4 kg 93.5 kg Intake: IV 370 Remdesivir 100 mg In 250 Sodium Chloride 0.9% 250 ml @ 250 mls/hr IVPB DAILY@1200 [facility] Rx#: [id number] Sodium Chloride 0.9% 1, 20 000 ml @ 75 mls/hr IV . [id number] [facility] Rx#:[id number] cefTRIAXone 1 gm In 100 Sodium Chloride 0.9% 50 ml @ 100 mls/hr IVPB Q24HR [facility] Rx#:[id number] Oral 300 Output: Urine 2390 575 250 Other: Voiding Method Indwelling Catheter Indwelling Catheter Indwelling Catheter - Exam PHYSICAL EXAMINATION: GENERAL: The patient is alert and oriented X3, in any acute distress. HEENT: No pallor. No icterus. CARDIOVASCULAR: S1 and S2 present. No murmurs, rubs, or gallops. PULMONARY: Faint rhonchi at the bases ABDOMEN: Soft, nontender, nondistended, normoactive bowel sounds. No palpable organomegaly. MUSCULOSKELETAL: No joint swelling or deformity. EXTREMITIES: No cyanosis, clubbing, or pedal edema. NEUROLOGICAL: No focal neurological deficits. SKIN: No rash - Labs CBC & Chem 7: 04/17/20 04:48 04/17/20 04:48 Labs: Abnormal Lab Results - Last 24 Hours (Table) 04/16/20 04/16/20 04/17/20 Range/Units 17:31 21:09 04:48 WBC 31.8 H (3.8-10.6) k/uL RBC 5.49 H (3.80-5.40) m/uL Hgb 16.9 H (11.4-16.0) gm/dL Hct 50.9 H (34.0-46.0) % Neutrophils # 29.5 H (1.3-7.7) k/uL Lymphocytes # 0.9 L (1.0-4.8) k/uL D-Dimer (<0.60) mg/L FEU Sodium (137-145) mmol/L BUN (7-17) mg/dL Glucose (74-99) mg/dL POC Glucose (mg/dL) 174 H 169 H (75-99) mg/dL Calcium (8.4-10.2) mg/dL Ferritin (10.0-291.0) ng/mL AST (14-36) U/L Lactate Dehydrogenase (313-618) U/L C-Reactive Protein (<10.0) mg/L Total Protein (6.3-8.2) g/dL Albumin (3.5-5.0) g/dL 04/17/20 04/17/20 04/17/20 Range/Units 04:48 05:39 06:53 WBC (3.8-10.6) k/uL RBC (3.80-5.40) m/uL Hgb (11.4-16.0) gm/dL Hct (34.0-46.0) % Neutrophils # (1.3-7.7) k/uL Lymphocytes # (1.0-4.8) k/uL D-Dimer 9.53 H (<0.60) mg/L FEU Sodium 135 L (137-145) mmol/L BUN 25 H (7-17) mg/dL Glucose 160 H (74-99) mg/dL POC Glucose (mg/dL) 155 H (75-99) mg/dL Calcium 8.3 L (8.4-10.2) mg/dL Ferritin 3224.5 H (10.0-291.0) ng/mL AST 61 H (14-36) U/L Lactate Dehydrogenase 2452 H (313-618) U/L C-Reactive Protein 84.7 H (<10.0) mg/L Total Protein 5.9 L (6.3-8.2) g/dL Albumin 2.7 L (3.5-5.0) g/dL 04/17/20 Range/Units 12:43 WBC (3.8-10.6) k/uL RBC (3.80-5.40) m/uL Hgb (11.4-16.0) gm/dL Hct (34.0-46.0) % Neutrophils # (1.3-7.7) k/uL Lymphocytes # (1.0-4.8) k/uL D-Dimer (<0.60) mg/L FEU Sodium (137-145) mmol/L BUN (7-17) mg/dL Glucose (74-99) mg/dL POC Glucose (mg/dL) 177 H (75-99) mg/dL Calcium (8.4-10.2) mg/dL Ferritin (10.0-291.0) ng/mL AST (14-36) U/L Lactate Dehydrogenase (313-618) U/L C-Reactive Protein (<10.0) mg/L Total Protein (6.3-8.2) g/dL Albumin (3.5-5.0) g/dL Microbiology - Last 24 Hours (Table) 04/11/20 18:09 Blood Culture - Preliminary Blood No Growth after 120 hours 04/11/20 18:00 Blood Culture - Preliminary Blood No Growth after 120 hours 04/13/20 14:58 Blood Culture - Preliminary Blood No Growth after 72 hours Assessment and Plan Assessment: ASSESSMENT Acute hypoxic respiratory failure- due to COVID 19 pneumonia Increased d-dimer without evidence of PE Hyponatremia Leukocytosis Elevated and she telemetry markers Hypertension Hypothyroidism History of bilateral posterior tibial tendon repair Obesity with BMI of 35 PLAN: Patient to be continued on the current medication regimen. Patient seems to be improving gradually. She is to be continued on dexamethasone, Remdesevir. her dose of Lovenox has been increased to 60 today. Continue with breathing treatments. We'll continue to adjust her dose of insulin depending upon the blood sugar levels. Overall prognosis is guarded. Further recommendations to follow depending on the progress of the patient.
--- NOTE | 2020-04-17 13:23 | P.PN ---
Subjective Progress Note Date: 04/17/20 Principal diagnosis: Acute hypoxic respiratory failure secondary to covid 19 pneumonitis This is a 69-year-old female with history of hypertension, hypothyroidism, patient presented with 1 week history of cough fever shortness of breath, decreased appetite, and intermittent episodes of diarrhea. Patient was diagnosed as having covid 19 infection. It's was done through the health Department. Patient presented to [facility] and was found to be hypoxic, O2 saturations was 80%, patient was placed on 12 L high flow nasal cannula, and arrangements were made to transfer the patient to [facility]. She had a CT angiogram of the chest, and there was no evidence of pulmonary embolism, however there was evidence of bilateral interstitial infiltrates consistent with covid 19 pneumonitis. Considering the diagnoses and considering the presentation, patient was admitted and this consult was initiated. Patient had multiple constitutional symptoms prior to admission however she did not lose sensation of taste or smell. She had mostly cough, shortness of breath, fever, diarrhea, and generalized aches and pains as well as extreme fatigue. Patient was reevaluated today on 04/13/2020, she seems to be extremely short of breath today. She has intermittent cough, and she is barely maintaining adequate O2 saturation in spite of being on a nonrebreather mask at 15 L flow. Hence after examining the patient and examining her chest x-ray, I have ron mmended transferring the patient to the ICU, she needs to be placed on airvo possibly BiPAP, and she may even require intubation and mechanical ventilation if her condition does not improve much soon. CBC showed leukocytosis with WBC of 15.3 hemoglobin is 17.2 index was abnormal renal profile is normal. Patient was reevaluated today on 04/14/2020, remains on relatively high FiO2, she is now on 60 L airvo, FiO2 of 90%, and her O2 saturation is 92-94% at best. Patient was placed on BiPAP last night, however she had anxiety attacks and panic-like attacks on BiPAP. Transition today to airvo, and seems to be doing better. So far the patient received 3 doses of REM to severe. And 2 units of convalescent plasma. Remains on dexamethasone 6 mg IV push daily and remains on Lovenox 40 mg twice a day. Patient also was Dry and received Lasix, diuresed over 1 L with Lasix. Her LDH is up to 804, CRP is down to 188. Patient remains empirically on ceftriaxone. CT of the chest showed significant airspace disease involving both lungs, not truly appreciated on the chest x-ray, but clearly seen to be quite impressive on the CT of the chest. Patient remains marginal at best. Patient may eventually require intubation, however at this point in time I would rather wait and continue to manage with less invasive supportive care measures. Reevaluated today on 04/15/2020, patient remains in the ICU. Patient remains on airvo at 60 L high flow, and 92% FiO2. Her O2 saturation is about 91%. Patient is feeling clinically better, however her chest x-ray continues to show evidence of interstitial bilateral infiltrates. Patient looks fairly comfortable. She has received full treatment for Covid 19 pneumonitis. She has received the full cocktail, and she also received convalescent plasma as well as remdesivir. Her Decadron today will be switched her Solu-Medrol. And she remains on Lovenox at 40 mg subcu twice a day. Clinically the patient is feeling better, but again her O2 saturation is extremely marginal, and I have a strong feeling that the patient may worsen and required intubation and mechanical ventilation. Hopefully not Reevaluated today on 04/16/2020, patient remains in the ICU, remains marginal at best. She is still on high flow oxygen, airvo at 60 L/m flow and 92% FiO2. And her O2 saturation is in the low 90s. Surprisingly her white count went up from 15-26. Patient is on Rocephin, and I believe the leukocytosis is most likely related to steroids. Patient did receive remdesivir, she also received 2 units of convalescent plasma. Chest x-ray continues to show evidence of interstitial infiltrates bilaterally. Clinically the patient is doing surprisingly better than expected, she seems to be very comfortable, and in no distress. She is now on day #5 of remdesivir. CBC is noted and basic metabolic profile is normal. LDH is elevated at 3134, and C-reactive protein is 193 Patient was reevaluated today on04/17/2020, patient remains in the ICU, she is now on 80% FiO2, 60 L flow of oxygen, patient is feeling clinically a bit better, breathing easier. Chest x-ray also showed slight improvement. Her d-dimer is up to 9.53, hence her Lovenox was increased to 60 mg subcu twice a day. Her Solu-Medrol was cut down to 40 mg every 12 hours patient is developing significant leukocytosis related to steroids. Again clinically the patient is feeling better, breathing easier, and I plan to maintain the patient on observation in the ICU for at least the next 24 hours. Her interleukin-6 level is pending. All labs were reviewed, continues to have elevated markers. And her WBC count today is 31.8 Objective - Vital Signs Vital signs: Vital Signs Temp 98.1 F 04/17/20 12:00 Pulse 75 04/17/20 12:00 Resp 17 04/17/20 12:00 BP 130/83 04/17/20 12:00 Pulse Ox 96 04/17/20 12:00 Intake & Output 04/16/20 04/17/20 04/17/20 18:59 06:59 18:59 Intake Total 370 300 Output Total 2390 575 250 Balance -2019 -275 -250 Weight 99.4 kg 93.5 kg Intake: IV 370 Remdesivir 100 mg In 250 Sodium Chloride 0.9% 250 ml @ 250 mls/hr IVPB DAILY@1200 [facility] Rx#: [id number] Sodium Chloride 0.9% 1, 20 000 ml @ 75 mls/hr IV . [id number] [facility] Rx#:[id number] cefTRIAXone 1 gm In 100 Sodium Chloride 0.9% 50 ml @ 100 mls/hr IVPB Q24HR [facility] Rx#:[id number] Oral 300 Output: Urine 2390 575 250 Other: Voiding Method Indwelling Catheter Indwelling Catheter Indwelling Catheter - Exam Physical Exam: Revealed a 69-year-old female , on airvo, feels better compared to yesterday. Head: Atraumatic normocephalic. HEENT:[Neck is supple.] [No neck masses.] [No thyromegaly.] [No JVD.] Her lack, EOMI, nonicteric. Chest: [Symmetrical chest expansion, crackles and rhonchi noted bilaterally Cardiac Exam: [Normal S1 and S2, no S3 gallop, no murmur.] Abdomen: [Soft, nontender, no megaly, no rebound, no guarding, normal bowel so unds.] Extremities: [No clubbing, no edema, no cyanosis.] Neurological Exam: [No focal neurologic deficit.] Alert and oriented 3. Psychiatric: Normal mood, affect and normal mental status examination. Skin: No rashes. - Labs CBC & Chem 7: 04/17/20 04:48 04/17/20 04:48 Labs: Abnormal Lab Results - Last 24 Hours (Table) 04/16/20 04/16/20 04/17/20 Range/Units 17:31 21:09 04:48 WBC 31.8 H (3.8-10.6) k/uL RBC 5.49 H (3.80-5.40) m/uL Hgb 16.9 H (11.4-16.0) gm/dL Hct 50.9 H (34.0-46.0) % Neutrophils # 29.5 H (1.3-7.7) k/uL Lymphocytes # 0.9 L (1.0-4.8) k/uL D-Dimer (<0.60) mg/L FEU Sodium (137-145) mmol/L BUN (7-17) mg/dL Glucose (74-99) mg/dL POC Glucose (mg/dL) 174 H 169 H (75-99) mg/dL Calcium (8.4-10.2) mg/dL Ferritin (10.0-291.0) ng/mL AST (14-36) U/L Lactate Dehydrogenase (313-618) U/L C-Reactive Protein (<10.0) mg/L Total Protein (6.3-8.2) g/dL Albumin (3.5-5.0) g/dL 04/17/20 04/17/20 04/17/20 Range/Units 04:48 05:39 06:53 WBC (3.8-10.6) k/uL RBC (3.80-5.40) m/uL Hgb (11.4-16.0) gm/dL Hct (34.0-46.0) % Neutrophils # (1.3-7.7) k/uL Lymphocytes # (1.0-4.8) k/uL D-Dimer 9.53 H (<0.60) mg/L FEU Sodium 135 L (137-145) mmol/L BUN 25 H (7-17) mg/dL Glucose 160 H (74-99) mg/dL POC Glucose (mg/dL) 155 H (75-99) mg/dL Calcium 8.3 L (8.4-10.2) mg/dL Ferritin 3224.5 H (10.0-291.0) ng/mL AST 61 H (14-36) U/L Lactate Dehydrogenase 2452 H (313-618) U/L C-Reactive Protein 84.7 H (<10.0) mg/L Total Protein 5.9 L (6.3-8.2) g/dL Albumin 2.7 L (3.5-5.0) g/dL 04/17/20 Range/Units 12:43 WBC (3.8-10.6) k/uL RBC (3.80-5.40) m/uL Hgb (11.4-16.0) gm/dL Hct (34.0-46.0) % Neutrophils # (1.3-7.7) k/uL Lymphocytes # (1.0-4.8) k/uL D-Dimer (<0.60) mg/L FEU Sodium (137-145) mmol/L BUN (7-17) mg/dL Glucose (74-99) mg/dL POC Glucose (mg/dL) 177 H (75-99) mg/dL Calcium (8.4-10.2) mg/dL Ferritin (10.0-291.0) ng/mL AST (14-36) U/L Lactate Dehydrogenase (313-618) U/L C-Reactive Protein (<10.0) mg/L Total Protein (6.3-8.2) g/dL Albumin (3.5-5.0) g/dL Microbiology - Last 24 Hours (Table) 04/11/20 18:09 Blood Culture - Preliminary Blood No Growth after 120 hours 04/11/20 18:00 Blood Culture - Preliminary Blood No Growth after 120 hours 04/13/20 14:58 Blood Culture - Preliminary Blood No Growth after 72 hours Assessment and Plan Assessment: Impression: Acute hypoxic respiratory failure secondary to covid 19 pneumonitis. History of hysterectomy. Remote history of nicotine dependence. Obesity with body index of 35. Elevated d-dimer but negative for pulmonary embolism. Recommendation: Continue to monitor in the ICU. Continue airvo, continue to titrate FiO2. Continue the present cocktail for covid 19 pneumonitis. Finished her full course of remdesivir convalescent plasma, was given 2. Continue Solu-Medrol, however cut down the dose to 40 mg IV push every 12 hours. and continue, vitamin C, vitamin D, and zinc. Continue Lovenox. , Dose was increased to 60 mg twice a day because of increased d-dimer. Will follow closely. Prognosis is guarded. We'll continue to follow in the ICU Time with Patient: Less than 30
[2020-04-17] MEDS: ALPRAZolam 0.25 MG TAB PO PRN ×2 (14:42→20:08)
--- NOTE | 2020-04-17 16:40 | PN ---
PROGRESS NOTE DATE OF SERVICE: 04/17/2020 REASON FOR FOLLOWUP: COVID-19 pneumonia. INTERVAL HISTORY: The patient is currently afebrile. The patient is breathing more comfortably. The patient denies having any chest pain. Minimal cough. No sputum. No abdominal pain or diarrhea. PHYSICAL EXAMINATION: Blood pressure 116/69, pulse of 82, temperature 98.1. She is 92% on 60% FiO2. General description is an elderly female lying in bed in no distress. RESPIRATORY SYSTEM: Unlabored breathing with decreased intensity of breath sounds. No wheeze. HEART: S1, S2. Regular rate and rhythm. ABDOMEN: Soft. No tenderness. LABS: Hemoglobin 16.9, hematocrit 31.8. BUN of 25, creatinine 0.56. CRP is 84.7, LDH 2452. DIAGNOSTIC IMPRESSION AND PLAN: 1. Patient with acute respiratory failure which is multifactorial secondary acute COVID-19 pneumonia in this patient who has shown some clinical improvement. She is currently covered with Solu-Medrol, Lovenox, zinc; to continue. Clinical suspicion low for secondary bacterial pneumonia. 2. Elevated white count, more likely steroid effect. We will monitor closely. MMODL / IJN: [id number] /
[2020-04-17 16:46] LABS: Glucose,Whole Blood 145 mg/dL (75-99)
[2020-04-17] MEDS: methylPREDNISolone SOD SUCCI 40 MG/ML 1 ML VIAL IV SCH (20:08)
[2020-04-17] MEDS: ENOXAPARIN 60 MG/0.6 ML SYRINGE SQ SCH (20:10)
[2020-04-17 20:28] LABS: Glucose,Whole Blood 163 mg/dL (75-99)
[2020-04-18 04:45] LABS: ALT 29 U/L (4-34); AST 65 U/L (14-36); African American GFR (CKD) >90 (>60 ml/min/1.73 sqM); Albumin 2.8 g/dL (3.5-5.0); Alkaline Phosphatase 70 U/L (38-126); Anion Gap 5 mmol/L; Blood Urea Nitrogen 29 mg/dL (7-17); C Reactive Protein 63.9 mg/L (<10.0); Carbon Dioxide 32 mmol/L (22-30); Chloride 97 mmol/L (98-107); Creatine Kinase 86 U/L (30-135); Glucose 122 mg/dL (74-99); Non-African American GFR(CKD) >90 (>60 ml/min/1.73 sqM); Sodium 134 mmol/L (137-145); Total Bilirubin 1.5 mg/dL (0.2-1.3); Total Protein 6.5 g/dL (6.3-8.2)
[2020-04-18 04:50] LABS: Potassium 5.1 mmol/L (3.5-5.1)
[2020-04-18 04:51] LABS: LDH 2969 U/L (313-618)
[2020-04-18 04:58] LABS: Basophils # (A) 0.2 k/uL (0-0.2); Basophils % (A) 1 %; Eosinophils % (A) 0 %; HCT 51.4 % (34.0-46.0); HGB 16.8 gm/dL (11.4-16.0); Lymphocytes # (A) 0.9 k/uL (1.0-4.8); Lymphocytes % (A) 3 %; MCH 30.7 pg (25.0-35.0); MCHC 32.7 g/dL (31.0-37.0); MCV 93.7 fL (80.0-100.0); Mean Platelet Volume 9.5; Monocytes # (A) 1.7 k/uL (0-1.0); Monocytes % (A) 6 %; Neutrophils # (A) 26.4 k/uL (1.3-7.7); Neutrophils % (A) 90 %; Platelet Count 369 k/uL (150-450); RBC 5.49 m/uL (3.80-5.40); RDW 13.4 % (11.5-15.5); WBC 29.3 k/uL (3.8-10.6)
[2020-04-18 06:21] LABS: Large Platelets Present
[2020-04-18 07:14] LABS: Glucose,Whole Blood 131 mg/dL (75-99)
[2020-04-18] MEDS: INSULIN ASPART (NovoLOG) 100 UNIT/ML VIAL SQ SCH ×4 (08:09→20:01)
[2020-04-18] MEDS: ALBUTEROL HFA INHALER INHALATION SCH ×3 (08:16→20:37)
[2020-04-18] MEDS: LEVOTHYROXINE 50 MCG TAB PO SCH (08:26)
[2020-04-18] MEDS: FAMOTIDINE 20 MG TAB PO SCH ×2 (08:27→20:01)
[2020-04-18] MEDS: ENOXAPARIN 60 MG/0.6 ML SYRINGE SQ SCH ×2 (08:27→20:01)
[2020-04-18] MEDS: ASCORBIC ACID 500 MG TAB PO SCH (08:27)
[2020-04-18] MEDS: CHOLECALCIFEROL 1,000 UNIT TAB PO SCH (08:27)
[2020-04-18] MEDS: ALPRAZolam 0.25 MG TAB PO PRN ×3 (08:28→20:01)
[2020-04-18] MEDS: methylPREDNISolone SOD SUCCI 40 MG/ML 1 ML VIAL IV SCH ×2 (08:28→20:01)
[2020-04-18] MEDS: LOSARTAN-HCTZ 50-12.5 MG 1 EACH TAB PO SCH (08:28)
[2020-04-18] MEDS: ZINC SULFATE 220 MG CAP PO SCH (08:28)
--- NOTE | 2020-04-18 08:48 | XR ---
EXAMINATION TYPE: XR chest 1V portable DATE OF EXAM: 04/18/2020 COMPARISON: 04/17/2020 HISTORY: Shortness of breath TECHNIQUE: Single frontal view of the chest is obtained. FINDINGS: FINDINGS: Diffuse interstitial pattern is stable. Heart size normal. No pleural effusion o r pneumothorax. Atherosclerotic change aorta. IMPRESSION: Stable interstitial pattern correlate for interstitial or atypical pneumonia.
[2020-04-18] MEDS ORDERED: FUROSEMIDE 10 MG/ML 4 ML VIAL IV STA (09:34)
[2020-04-18] MEDS: METOPROLOL TARTRATE 25 MG TAB PO SCH ×2 (10:37→20:01)
[2020-04-18 11:17] LABS: Ferritin 2110.1 ng/mL (10.0-291.0)
[2020-04-18 12:00] LABS: Glucose,Whole Blood 135 mg/dL (75-99)
[2020-04-18] MEDS: THIAMINE 100 MG TAB PO SCH (12:02)
[2020-04-18] MEDS: MULTIVITAMINS, THERA 1 EACH TAB PO SCH (12:02)
[2020-04-18] MEDS: FOLIC ACID 1 MG TAB PO SCH (12:02)
--- NOTE | 2020-04-18 12:49 | P.PN ---
Subjective Progress Note Date: 04/18/20 Principal diagnosis: Acute hypoxic respiratory failure secondary to covid 19 pneumonitis This is a 69-year-old female with history of hypertension, hypothyroidism, patient presented with 1 week history of cough fever shortness of breath, decreased appetite, and intermittent episodes of diarrhea. Patient was diagnosed as having covid 19 infection. It's was done through the health Department. Patient presented to [facility] and was found to be hypoxic, O2 saturations was 80%, patient was placed on 12 L high flow nasal cannula, and arrangements were made to transfer the patient to [facility]. She had a CT angiogram of the chest, and there was no evidence of pulmonary embolism, however there was evidence of bilateral interstitial infiltrates consistent with covid 19 pneumonitis. Considering the diagnoses and considering the presentation, patient was admitted and this consult was initiated. Patient had multiple constitutional symptoms prior to admission however she did not lose sensation of taste or smell. She had mostly cough, shortness of breath, fever, diarrhea, and generalized aches and pains as well as extreme fatigue. Patient was reevaluated today on 04/13/2020, she seems to be extremely short of breath today. She has intermittent cough, and she is barely maintaining adequate O2 saturation in spite of being on a nonrebreather mask at 15 L flow. Hence after examining the patient and examining her chest x-ray, I have ron mmended transferring the patient to the ICU, she needs to be placed on airvo possibly BiPAP, and she may even require intubation and mechanical ventilation if her condition does not improve much soon. CBC showed leukocytosis with WBC of 15.3 hemoglobin is 17.2 index was abnormal renal profile is normal. Patient was reevaluated today on 04/14/2020, remains on relatively high FiO2, she is now on 60 L airvo, FiO2 of 90%, and her O2 saturation is 92-94% at best. Patient was placed on BiPAP last night, however she had anxiety attacks and panic-like attacks on BiPAP. Transition today to airvo, and seems to be doing better. So far the patient received 3 doses of REM to severe. And 2 units of convalescent plasma. Remains on dexamethasone 6 mg IV push daily and remains on Lovenox 40 mg twice a day. Patient also was Dry and received Lasix, diuresed over 1 L with Lasix. Her LDH is up to 804, CRP is down to 188. Patient remains empirically on ceftriaxone. CT of the chest showed significant airspace disease involving both lungs, not truly appreciated on the chest x-ray, but clearly seen to be quite impressive on the CT of the chest. Patient remains marginal at best. Patient may eventually require intubation, however at this point in time I would rather wait and continue to manage with less invasive supportive care measures. Reevaluated today on 04/15/2020, patient remains in the ICU. Patient remains on airvo at 60 L high flow, and 92% FiO2. Her O2 saturation is about 91%. Patient is feeling clinically better, however her chest x-ray continues to show evidence of interstitial bilateral infiltrates. Patient looks fairly comfortable. She has received full treatment for Covid 19 pneumonitis. She has received the full cocktail, and she also received convalescent plasma as well as remdesivir. Her Decadron today will be switched her Solu-Medrol. And she remains on Lovenox at 40 mg subcu twice a day. Clinically the patient is feeling better, but again her O2 saturation is extremely marginal, and I have a strong feeling that the patient may worsen and required intubation and mechanical ventilation. Hopefully not Reevaluated today on 04/16/2020, patient remains in the ICU, remains marginal at best. She is still on high flow oxygen, airvo at 60 L/m flow and 92% FiO2. And her O2 saturation is in the low 90s. Surprisingly her white count went up from 15-26. Patient is on Rocephin, and I believe the leukocytosis is most likely related to steroids. Patient did receive remdesivir, she also received 2 units of convalescent plasma. Chest x-ray continues to show evidence of interstitial infiltrates bilaterally. Clinically the patient is doing surprisingly better than expected, she seems to be very comfortable, and in no distress. She is now on day #5 of remdesivir. CBC is noted and basic metabolic profile is normal. LDH is elevated at 3134, and C-reactive protein is 193 Patient was reevaluated today on04/17/2020, patient remains in the ICU, she is now on 80% FiO2, 60 L flow of oxygen, patient is feeling clinically a bit better, breathing easier. Chest x-ray also showed slight improvement. Her d-dimer is up to 9.53, hence her Lovenox was increased to 60 mg subcu twice a day. Her Solu-Medrol was cut down to 40 mg every 12 hours patient is developing significant leukocytosis related to steroids. Again clinically the patient is feeling better, breathing easier, and I plan to maintain the patient on observation in the ICU for at least the next 24 hours. Her interleukin-6 level is pending. All labs were reviewed, continues to have elevated markers. And her WBC count today is 31.8 Reevaluated today on 04/18/2020, patient remains in the ICU, remains on high flow airvo , and high FiO2 at 87%, O2 saturation remains marginal, in the low 90s. Patient feels a bit more short-winded compared to yesterday. Chest x-ray continues to show evidence of bilateral airspace disease. Patient is noted to have intermittent episodes of tachycardia, and premature atrial contractions, hence I recommended adding Lopressor 25 mg by mouth twice a day. I have also recommended one dose of Lasix to be given 40 mg IV push 1. D-dimer has been noted to be elevated, hence her Lovenox dose was increased to 60 mg subcu twice a day. Patient is all done with her course of treatment/ remdesivir and convalescent plasma. Remains on Solu-Medrol. And remains on the Covid 19 cocktail. Inflammatory markers remain high with LDH of 2969 and C-reactive prot ein is actually better today compared to the last few days down to 63.9. Interleukin-6 level is pending. Objective - Vital Signs Vital signs: Vital Signs Temp 98.2 F 04/18/20 08:00 Pulse 77 04/18/20 12:00 Resp 23 04/18/20 12:00 BP 132/76 04/18/20 12:00 Pulse Ox 89 L 04/18/20 12:00 Intake & Output 04/17/20 04/18/20 04/18/20 18:59 06:59 18:59 Intake Total 200 Output Total 550 600 250 Balance -550 -400 -250 Weight 92.3 kg Intake: Oral 200 Output: Urine 550 550 250 Emesis 50 Other: Voiding Method Indwelling Catheter Indwelling Catheter Indwelling Catheter - Exam Physical Exam: Revealed a 69-year-old female , on airvo, more short of breath today compared to the last few days Head: Atraumatic normocephalic. HEENT:[Neck is supple.] [No neck masses.] [No thyromegaly.] [No JVD.] Her lack, EOMI, nonicteric. Chest: [Symmetrical chest expansion, crackles and rhonchi noted bilaterally Cardiac Exam: [Normal S1 and S2, no S3 gallop, no murmur.] Abdomen: [Soft, nontender, no megaly, no rebound, no guarding, normal bowel sounds.] Extremities: [No clubbing, no edema, no cyanosis.] Neurological Exam: [No focal neurologic deficit.] Alert and oriented 3. Psychiatric: Normal mood, affect and normal mental status examination. Skin: No rashes. - Labs CBC & Chem 7: 04/18/20 03:41 04/18/20 03:41 Labs: Abnormal Lab Results - Last 24 Hours (Table) 04/17/20 04/17/20 04/17/20 Range/Units 12:43 16:45 20:26 WBC (3.8-10.6) k/uL RBC (3.80-5.40) m/uL Hgb (11.4-16.0) gm/dL Hct (34.0-46.0) % Neutrophils # (1.3-7.7) k/uL Lymphocytes # (1.0-4.8) k/uL Monocytes # (0-1.0) k/uL D-Dimer (<0.60) mg/L FEU Sodium (137-145) mmol/L Chloride (98-107) mmol/L Carbon Dioxide (22-30) mmol/L BUN (7-17) mg/dL Glucose (74-99) mg/dL POC Glucose (mg/dL) 177 H 145 H 163 H (75-99) mg/dL Calcium (8.4-10.2) mg/dL Ferritin (10.0-291.0) ng/mL Total Bilirubin (0.2-1.3) mg/dL AST (14-36) U/L Lactate Dehydrogenase (313-618) U/L C-Reactive Protein (<10.0) mg/L Albumin (3.5-5.0) g/dL 04/18/20 04/18/20 04/18/20 Range/Units 03:41 03:41 03:41 WBC 29.3 H (3.8-10.6) k/uL RBC 5.49 H (3.80-5.40) m/uL Hgb 16.8 H (11.4-16.0) gm/dL Hct 51.4 H (34.0-46.0) % Neutrophils # 26.4 H (1.3-7.7) k/uL Lymphocytes # 0.9 L (1.0-4.8) k/uL Monocytes # 1.7 H (0-1.0) k/uL D-Dimer 6.39 H (<0.60) mg/L FEU Sodium 134 L (137-145) mmol/L Chloride 97 L (98-107) mmol/L Carbon Dioxide 32 H (22-30) mmol/L BUN 29 H (7-17) mg/dL Glucose 122 H (74-99) mg/dL POC Glucose (mg/dL) (75-99) mg/dL Calcium 8.0 L (8.4-10.2) mg/dL Ferritin 2110.1 H (10.0-291.0) ng/mL Total Bilirubin 1.5 H (0.2-1.3) mg/dL AST 65 H (14-36) U/L Lactate Dehydrogenase 2969 H (313-618) U/L C-Reactive Protein 63.9 H (<10.0) mg/L Albumin 2.8 L (3.5-5.0) g/dL 04/18/20 04/18/20 Range/Units 07:12 11:59 WBC (3.8-10.6) k/uL RBC (3.80-5.40) m/uL Hgb (11.4-16.0) gm/dL Hct (34.0-46.0) % Neutrophils # (1.3-7.7) k/uL Lymphocytes # (1.0-4.8) k/uL Monocytes # (0-1.0) k/uL D-Dimer (<0.60) mg/L FEU Sodium (137-145) mmol/L Chloride (98-107) mmol/L Carbon Dioxide (22-30) mmol/L BUN (7-17) mg/dL Glucose (74-99) mg/dL POC Glucose (mg/dL) 131 H 135 H (75-99) mg/dL Calcium (8.4-10.2) mg/dL Ferritin (10.0-291.0) ng/mL Total Bilirubin (0.2-1.3) mg/dL AST (14-36) U/L Lactate Dehydrogenase (313-618) U/L C-Reactive Protein (<10.0) mg/L Albumin (3.5-5.0) g/dL Microbiology - Last 24 Hours (Table) 04/11/20 18:09 Blood Culture - Final Blood No Growth after 144 hours 04/11/20 18:00 Blood Culture - Final Blood No Growth after 144 hours 04/13/20 14:58 Blood Culture - Preliminary Blood No Growth after 96 hours Assessment and Plan Assessment: Impression: Acute hypoxic respiratory failure secondary to covid 19 pneumonitis. History of hysterectomy. Remote history of nicotine dependence. Obesity with body index of 35. Elevated d-dimer but negative for pulmonary embolism. Recommendation: Continue to monitor in the ICU. Continue airvo, and titrate accordingly. Continue the present cocktail for covid 19 pneumonitis. Finished her full course of remdesivir convalescent plasma, was given 2. Interleukin-6 level is pending. Continue Solu-Medrol, and continue, vitamin C, vitamin D, and zinc. Continue Lovenox. Presently at 60 mg subcu twice a day. Will follow closely. Prognosis is guarded. We'll continue to follow in the ICU Time with Patient: Less than 30
--- NOTE | 2020-04-18 16:32 | P.PN ---
Subjective Progress Note Date: 04/18/20 Principal diagnosis: COVID pneumonia Ms. Mccoy is a 69-year-old female with a past medical history of hypertension and thyroid disorder admitted to the hospital for acute hypoxic respiratory failure secondary to COVID 19 pneumonia. Patient has extensive bilateral interstitial pneumonia. She is on a low and pulmonary Dr. Mathews is following the patient. Patient received a convalescent plasma, is also on Remdesivir. On 04/17/2020- This morning patient was evaluated in the ICU. Patient is comfortably sitting in a chair states that her breathing is improving gradually. She denies having any chest pain or palpitations. No cough or hemoptysis. She denies having any swelling or for lower extremities. No abdominal pain nausea vomiting or diarrhea. She denies having any dysuria or hematuria, she has a Bryan's catheter in place. On reviewing her vitals temperature 98.1 heart rate 75 is 5817, blood pressure 1:30 bradycardia. Saturating at 96% on a Aervo -60%. On 04/18/2020 - patient was seen and examined in the ICU. Patient is sitting in a chair by the bedside, states that her breathing has worsened compared to yesterday. Patient is on high flow Airvo, saturating in the low 90s. She denies having any chest pain or palpitations. She complains of cough that is nonproductive. Patient had a chest x-ray done showing stable bilateral air space disease. As the patient was having few episodes of tachycardia, she was started on Lopressor this morning. Patient's inflammatory markers are noted to be high. On reviewing her vitals saturating at 90% on high flow Airvo, heart rate 70s to 80s, respiratory rate 20-25, blood pressure 106-67. In reviewing her labs white count of 29.3, hemoglobin 16.8, platelets 369. D-dimer 6.99, LDH 2969, CRP 63.9. Active Medications Acetaminophen (Acetaminophen Tab 325 Mg Tab) 650 mg PO Q6HR PRN PRN Reason: Mild Pain or Fever > 100.5 Albuterol Sulfate (Albuterol Hfa Inhaler) 2 puff INHALATION RT-TID PERRY Last Admin: 04/18/20 15:56 Dose: 2 puff Documented by: Alprazolam (Alprazolam 0.25 Mg Tab) 0.25 mg PO TID PRN PRN Reason: Anxiety Last Admin: 04/18/20 08:28 Dose: 0.25 mg Documented by: Ascorbic Acid (Ascorbic Acid 500 Mg Tab) 250 mg PO DAILY [facility] Last Admin: 04/18/20 08:27 Dose: 250 mg Documented by: Cholecalciferol (Cholecalciferol 1,000 Unit Tab) 1,000 unit PO DAILY [facility] Last Admin: 04/18/20 08:27 Dose: 1,000 unit Documented by: Enoxaparin Sodium (Enoxaparin 60 Mg/0.6 Ml Syringe) 60 mg SQ BID [facility] Last Admin: 04/18/20 08:27 Dose: 60 mg Documented by: Famotidine (Famotidine 20 Mg Tab) 20 mg PO BID [facility] Last Admin: 04/18/20 08:27 Dose: 20 mg Documented by: Folic Acid (Folic Acid 1 Mg Tab) 1 mg PO DAILY@1200 [facility] Last Admin: 04/18/20 12:02 Dose: 1 mg Documented by: HCTZ/Losartan Potassium (Losartan-Hctz 50-12.5 Mg 1 Each Tab) 1 each PO DAILY [facility] Last Admin: 04/18/20 08:28 Dose: 1 each Documented by: Insulin Aspart (Insulin Aspart (Novolog) 100 Unit/Ml Vial) 0 unit SQ [facility]; Protocol Last Admin: 04/18/20 12:02 Dose: 1 unit Documented by: Levothyroxine Sodium (Levothyroxine 50 Mcg Tab) 50 mcg PO DAILY@0630 [facility] Last Admin: 04/18/20 08:26 Dose: 50 mcg Documented by: Methylprednisolone Sodium Succinate (Methylprednisolone Sod Succi 40 Mg/Ml 1 Ml Vial) 40 mg IV Q12HR [facility] Last Admin: 04/18/20 08:28 Dose: 40 mg Documented by: Metoprolol Tartrate (Metoprolol Tartrate 25 Mg Tab) 25 mg PO BID [facility] Last Admin: 04/18/20 10:37 Dose: 25 mg Documented by: Miscellaneous Information (Potassium Replacement Protocol 1 Each Misc) 1 each MISCELLANE DAILY PRN; Protocol PRN Reason: Per Protocol Multivitamins (Multivitamins, Thera 1 Each Tab) 1 each PO DAILY@1200 [facility] Last Admin: 04/18/20 12:02 Dose: 1 each Documented by: Naloxone HCl (Naloxone 0.4 Mg/Ml 1 Ml Vial) 0.2 mg IV Q2M PRN PRN Reason: Opioid Reversal Ondansetron HCl (Ondansetron 4 Mg/2 Ml Vial) 4 mg IVP Q6HR PRN PRN Reason: Nausea And Vomiting Thiamine HCl (Thiamine 100 Mg Tab) 100 mg PO DAILY@1200 [facility] Last Admin: 04/18/20 12:02 Dose: 100 mg Documented by: Zinc Sulfate (Zinc Sulfate 220 Mg Cap) 220 mg PO DAILY [facility] Last Admin: 04/18/20 08:28 Dose: 220 mg Documented by: Objective - Vital Signs Vital signs: Vital Signs Temp 98.2 F 04/18/20 08:00 Pulse 87 04/18/20 15:00 Resp 21 04/18/20 15:00 BP 106/67 04/18/20 15:00 Pulse Ox 96 04/18/20 15:00 Intake & Output 04/17/20 04/18/20 04/18/20 18:59 06:59 18:59 Intake Total 200 Output Total 630 149 0262 Balance -550 -400 -1810 Weight 92.3 kg Intake: Oral 200 Output: Urine 768 810 8382 Emesis 50 Other: Voiding Method Indwelling Catheter Indwelling Catheter Indwelling Catheter - Exam PHYSICAL EXAMINATION: GENERAL: The patient is alert and oriented X3, in any acute distress. HEENT: No pallor. No icterus. CARDIOVASCULAR: S1 and S2 present. No murmurs, rubs, or gallops. PULMONARY: Rhonchi at the bases ABDOMEN: Soft, nontender, nondistended, normoactive bowel sounds. MUSCULOSKELETAL: No joint swelling or deformity. EXTREMITIES: No cyanosis, clubbing, or pedal edema. NEUROLOGICAL: No focal neurological deficits. - Labs CBC & Chem 7: 04/18/20 03:41 04/18/20 03:41 Labs: Abnormal Lab Results - Last 24 Hours (Table) 04/17/20 04/17/20 04/18/20 Range/Units 16:45 20:26 03:41 WBC 29.3 H (3.8-10.6) k/uL RBC 5.49 H (3.80-5.40) m/uL Hgb 16.8 H (11.4-16.0) gm/dL Hct 51.4 H (34.0-46.0) % Neutrophils # 26.4 H (1.3-7.7) k/uL Lymphocytes # 0.9 L (1.0-4.8) k/uL Monocytes # 1.7 H (0-1.0) k/uL D-Dimer (<0.60) mg/L FEU Sodium (137-145) mmol/L Chloride (98-107) mmol/L Carbon Dioxide (22-30) mmol/L BUN (7-17) mg/dL Glucose (74-99) mg/dL POC Glucose (mg/dL) 145 H 163 H (75-99) mg/dL Calcium (8.4-10.2) mg/dL Ferritin (10.0-291.0) ng/mL Total Bilirubin (0.2-1.3) mg/dL AST (14-36) U/L Lactate Dehydrogenase (313-618) U/L C-Reactive Protein (<10.0) mg/L Albumin (3.5-5.0) g/dL 04/18/20 04/18/20 04/18/20 Range/Units 03:41 03:41 07:12 WBC (3.8-10.6) k/uL RBC (3.80-5.40) m/uL Hgb (11.4-16.0) gm/dL Hct (34.0-46.0) % Neutrophils # (1.3-7.7) k/uL Lymphocytes # (1.0-4.8) k/uL Monocytes # (0-1.0) k/uL D-Dimer 6.39 H (<0.60) mg/L FEU Sodium 134 L (137-145) mmol/L Chloride 97 L (98-107) mmol/L Carbon Dioxide 32 H (22-30) mmol/L BUN 29 H (7-17) mg/dL Glucose 122 H (74-99) mg/dL POC Glucose (mg/dL) 131 H (75-99) mg/dL Calcium 8.0 L (8.4-10.2) mg/dL Ferritin 2110.1 H (10.0-291.0) ng/mL Total Bilirubin 1.5 H (0.2-1.3) mg/dL AST 65 H (14-36) U/L Lactate Dehydrogenase 2969 H (313-618) U/L C-Reactive Protein 63.9 H (<10.0) mg/L Albumin 2.8 L (3.5-5.0) g/dL 04/18/20 Range/Units 11:59 WBC (3.8-10.6) k/uL RBC (3.80-5.40) m/uL Hgb (11.4-16.0) gm/dL Hct (34.0-46.0) % Neutrophils # (1.3-7.7) k/uL Lymphocytes # (1.0-4.8) k/uL Monocytes # (0-1.0) k/uL D-Dimer (<0.60) mg/L FEU Sodium (137-145) mmol/L Chloride (98-107) mmol/L Carbon Dioxide (22-30) mmol/L BUN (7-17) mg/dL Glucose (74-99) mg/dL POC Glucose (mg/dL) 135 H (75-99) mg/dL Calcium (8.4-10.2) mg/dL Ferritin (10.0-291.0) ng/mL Total Bilirubin (0.2-1.3) mg/dL AST (14-36) U/L Lactate Dehydrogenase (313-618) U/L C-Reactive Protein (<10.0) mg/L Albumin (3.5-5.0) g/dL Microbiology - Last 24 Hours (Table) 04/11/20 18:09 Blood Culture - Final Blood No Growth after 144 hours 04/11/20 18:00 Blood Culture - Final Blood No Growth after 144 hours 04/13/20 14:58 Blood Culture - Preliminary Blood No Growth after 96 hours Assessment and Plan Assessment: ASSESSMENT Acute hypoxic respiratory failure- due to COVID 19 pneumonia Increased d-dimer without evidence of PE Hyponatremia Leukocytosis Elevated and she telemetry markers Hypertension Hypothyroidism History of bilateral posterior tibial tendon repair Obesity with BMI of 35 PLAN: Patient to be continued on the current medication regimen. Overall worse compared to yesterday. She is to be continued on dexamethasone, completed Remdesevir. Her dose of Lovenox has been increased to 60 yesterday as her D- dimer was high. Continue with breathing treatments. We'll continue to adjust her dose of insulin depending upon the blood sugar levels. Overall prognosis is guarded. Further recommendations to follow depending on the progress of the patient.
[2020-04-18 16:52] LABS: Glucose,Whole Blood 185 mg/dL (75-99)
[2020-04-18 19:48] LABS: Glucose,Whole Blood 144 mg/dL (75-99)
--- NOTE | 2020-04-18 20:10 | PN ---
PROGRESS NOTE DATE OF SERVICE: 04/18/2020 REASON FOR FOLLOWUP: COVID-19 pneumonia. INTERVAL HISTORY: The patient is currently afebrile. She has been complaining of more shortness of breath and has been requiring BiPAP. She is hemodynamically stable, not on any pressor support. No vomiting or diarrhea has been reported. Denies any chest pain. No abdominal pain or diarrhea. PHYSICAL EXAMINATION: Blood pressure 114/69, pulse of 90, temperature of 98.2. She is 89% on BiPAP. General description is an elderly female up in the chair in no distress. RESPIRATORY SYSTEM: Unlabored breathing with decreased intensity of breath sounds. No wheeze. HEART: S1, S2. Regular rate and rhythm. ABDOMEN: Soft. No tenderness. LABS: Hemoglobin 16.8, white count 29.3. BUN of 29, creatinine 0.54. LDH has been elevated. DIAGNOSTIC IMPRESSION AND PLAN: Patient with acute respiratory failure secondary to COVID-19 pneumonia in this patient who has completed her remdesivir therapy, currently on Solu-Medrol, zinc, Lovenox; to continue. Monitor clinical course closely. Possibly going into cytokine storm, and Actemra may be of benefit. Clinically no evidence of any secondary bacterial infection. MMODL / IJN: [id number] / MTDD
[2020-04-19 04:46] LABS: Basophils # (A) 0.1 k/uL (0-0.2); Basophils % (A) 0 %; Eosinophils % (A) 0 %; HCT 52.5 % (34.0-46.0); HGB 17.4 gm/dL (11.4-16.0); Lymphocytes # (A) 0.7 k/uL (1.0-4.8); Lymphocytes % (A) 2 %; MCHC 33.1 g/dL (31.0-37.0); MCV 93.5 fL (80.0-100.0); Mean Platelet Volume 8.2; Monocytes % (A) 4 %; Neutrophils # (A) 25.3 k/uL (1.3-7.7); Neutrophils % (A) 93 %; Platelet Count 314 k/uL (150-450); RBC 5.62 m/uL (3.80-5.40); RDW 13.4 % (11.5-15.5); WBC 27.3 k/uL (3.8-10.6)
[2020-04-19 05:25] LABS: ALT 29 U/L (4-34); AST 63 U/L (14-36); African American GFR (CKD) >90 (>60 ml/min/1.73 sqM); Albumin 2.8 g/dL (3.5-5.0); Alkaline Phosphatase 95 U/L (38-126); Anion Gap 5 mmol/L; Blood Urea Nitrogen 31 mg/dL (7-17); Calcium 8.2 mg/dL (8.4-10.2); Carbon Dioxide 35 mmol/L (22-30); Chloride 93 mmol/L (98-107); Creatine Kinase 40 U/L (30-135); Glucose 111 mg/dL (74-99); Non-African American GFR(CKD) 87 (>60 ml/min/1.73 sqM); Potassium 4.4 mmol/L (3.5-5.1); Sodium 133 mmol/L (137-145); Total Bilirubin 1.5 mg/dL (0.2-1.3); Total Protein 6.2 g/dL (6.3-8.2)
[2020-04-19 06:07] LABS: C Reactive Protein 217.6 mg/L (<10.0); LDH 2747 U/L (313-618)
[2020-04-19 06:52] LABS: Glucose,Whole Blood 107 mg/dL (75-99)
[2020-04-19] MEDS: INSULIN ASPART (NovoLOG) 100 UNIT/ML VIAL SQ SCH ×4 (06:54→21:05)
[2020-04-19] MEDS: LEVOTHYROXINE 50 MCG TAB PO SCH (07:14)
[2020-04-19] MEDS: ALBUTEROL HFA INHALER INHALATION SCH ×3 (07:37→20:37)
--- NOTE | 2020-04-19 07:40 | XR ---
EXAMINATION TYPE: XR chest 1V portable DATE OF EXAM: 04/19/2020 Comparison: 04/18/2020 Clinical History: 69-year-old female COVID; r/o fluid overload Findings: Heart normal size. Aorta within normal limits. Interstitial changes and patchy basilar opacities. No sizable effusion. Impression: Increased interstitial change and patchy basilar infiltrates. Findings worsened from 04/18/2020, possi ble worsening atypical pneumonia versus developing superimposed pulmonary vascular congestion. Clinic ally correlate.
[2020-04-19] MEDS: methylPREDNISolone SOD SUCCI 40 MG/ML 1 ML VIAL IV SCH ×2 (08:50→20:08)
[2020-04-19] MEDS: LOSARTAN-HCTZ 50-12.5 MG 1 EACH TAB PO SCH (08:50)
[2020-04-19] MEDS: FAMOTIDINE 20 MG TAB PO SCH ×2 (08:50→20:08)
[2020-04-19] MEDS: ASCORBIC ACID 500 MG TAB PO SCH (08:50)
[2020-04-19] MEDS: ENOXAPARIN 60 MG/0.6 ML SYRINGE SQ SCH ×2 (08:50→21:15)
[2020-04-19] MEDS: CHOLECALCIFEROL 1,000 UNIT TAB PO SCH (08:50)
[2020-04-19] MEDS: ZINC SULFATE 220 MG CAP PO SCH (08:50)
[2020-04-19] MEDS: METOPROLOL TARTRATE 25 MG TAB PO SCH ×2 (08:50→20:08)
[2020-04-19 11:41] LABS: Ferritin 3195.4 ng/mL (10.0-291.0)
--- NOTE | 2020-04-19 12:18 | PN ---
PROGRESS NOTE PULMONARY/CRITICAL CARE PROGRESS NOTE: DATE OF SERVICE: April 19, 2020 Critical care time greater than 30 minutes. This is a 69-year-old female who was admitted back on April 11. The patient was apparently transferred down from [facility]. She was admitted with a diagnosis of acute hypoxemic respiratory failure secondary to COVID-19 pneumonia. She was initially admitted to the floor and transferred to the ICU on the . Currently, she is on BiPAP at 14/6 and 100%. She is not receiving any IV fluids. She is a FULL CODE. She did receive Remdesivir and also convalescent plasma x2 doses. In addition, she has a history of hysterectomy, nicotine dependence, obesity, and elevated D-dimer, but was negative for pulmonary embolism. Currently, she is doing reasonably well despite the fact that she is on 100% oxygen. PHYSICAL EXAMINATION: VITAL SIGNS: Current vital signs include a temperature which is 97.6, heart rate which is 105, respiratory rate is 20, blood pressure 127/64, mean 85 and saturations are between 89% and 91%. GENERAL: She is sitting up in a chair. She appears in no distress. HEENT: Examination is grossly unremarkable. She is wearing a BiPAP mask. NECK: Supple. Full range of motion. No adenopathy. Neck veins are flat. CARDIOVASCULAR: Examination reveals a regular rhythm and rate. S1, S2 normal. No S3, S4, or murmur. LUNGS: Reveal diffuse coarse rhonchi. A few scattered basilar crackles. No wheezes. ABDOMEN: Soft. EXTREMITIES: Are intact. No edema. SKIN: Without rash. NEUROLOGIC: Examination is nonfocal. LABS: Labs are reviewed. White count 27.3, hemoglobin 17.4, hematocrit 52.5, platelet count is normal. D-dimer 3.56. Sodium 133, potassium 4.4, chloride 93, CO2 of 35. Anion gap is 5. BUN and creatinine were 31 and 0.72. LDH is 2747. C-reactive protein 218. Albumin 2.8. Microbiology is currently negative including 3 sets of blood cultures. Chest x-ray from the shows diffuse patchy infiltrates. CURRENT MEDICATIONS: Current medications are reviewed. The patient is on Tylenol, albuterol inhaler, Xanax, vitamin C, vitamin D3, Lovenox, famotidine, folic acid, insulin, levothyroxine, losartan/hydrochlorothiazide, Solu-Medrol, metoprolol, multivitamins, Narcan, Zofran, potassium replacement, thiamine and zinc. ASSESSMENT: 1. COVID-19 pneumonitis/pneumonia with acute hypoxemic respiratory failure, currently on BiPAP at 14/6 and 100%. 2. History of previous hysterectomy. 3. Remote history of tobacco use. 4. Obesity. 5. Elevated D-dimer, without evidence of pulmonary embolism. PLAN: The patient remains on Solu-Medrol, vitamin C, vitamin D3, and zinc. The patient did receive 5 days of Remdesivir and 2 doses of convalescent plasma. We will continue to follow closely. Prognosis is guarded. She looks relatively stable on the BiPAP. Critical care time greater than 30 minutes. KAMRON / DELANEYN: [id number] /
[2020-04-19] MEDS: THIAMINE 100 MG TAB PO SCH (12:20)
[2020-04-19] MEDS: MULTIVITAMINS, THERA 1 EACH TAB PO SCH (12:20)
[2020-04-19] MEDS: FOLIC ACID 1 MG TAB PO SCH (12:20)
[2020-04-19 12:35] LABS: Glucose,Whole Blood 138 mg/dL (75-99)
--- NOTE | 2020-04-19 18:08 | P.PN ---
Subjective Progress Note Date: 04/19/20 Principal diagnosis: COVID pneumonia Ms. Mccoy is a 69-year-old female with a past medical history of hypertension and thyroid disorder admitted to the hospital for acute hypoxic respiratory failure secondary to COVID 19 pneumonia. Patient has extensive bilateral interstitial pneumonia. She is on a low and pulmonary Dr. Mathews is following the patient. Patient received a convalescent plasma, is also on Remdesivir. On 04/17/2020- This morning patient was evaluated in the ICU. Patient is comfortably sitting in a chair states that her breathing is improving gradually. She denies having any chest pain or palpitations. No cough or hemoptysis. She denies having any swelling or for lower extremities. No abdominal pain nausea vomiting or diarrhea. She denies having any dysuria or hematuria, she has a Bryan's catheter in place. On reviewing her vitals temperature 98.1 heart rate 75 is 5817, blood pressure 1:30 bradycardia. Saturating at 96% on a Aervo -60%. On 04/18/2020 - patient was seen and examined in the ICU. Patient is sitting in a chair by the bedside, states that her breathing has worsened compared to yesterday. Patient is on high flow Airvo, saturating in the low 90s. She denies having any chest pain or palpitations. She complains of cough that is nonproductive. Patient had a chest x-ray done showing stable bilateral air space disease. As the patient was having few episodes of tachycardia, she was started on Lopressor this morning. Patient's inflammatory markers are noted to be high. On reviewing her vitals saturating at 90% on high flow Airvo, heart rate 70s to 80s, respiratory rate 20-25, blood pressure 106-67. In reviewing her labs white count of 29.3, hemoglobin 16.8, platelets 369. D-dimer 6.99, LDH 2969, CRP 63.9. On 04/19/2020 - patient is seen and examined in the ICU. She is currently on BiPAP, as her respiratory status has worsened compared to yesterday. Patient denies having any chest pain or palpitations. No abdominal pain nausea vomiting or diarrhea. No dysuria or hematuria. She is on BiPAP 14/6 and 100% FiO2. On reviewing her vitals temperature is 99.2, respiratory rate is 25, heart rate 70, blood pressure 10 9 x 71. Reviewing the labs white count of 27.3, hemoglobin 17.4, platelets 314. Sodium 133, potassium 4.4, chloride 90, bicarbonate 35, BUN 31, creatinine 0.72. Ferritin 3195, CRP 217 and LDH 2747. Active Medications Acetaminophen (Acetaminophen Tab 325 Mg Tab) 650 mg PO Q6HR PRN PRN Reason: Mild Pain or Fever > 100.5 Albuterol Sulfate (Albuterol Hfa Inhaler) 2 puff INHALATION RT-TID [facility] Last Admin: 04/19/20 13:27 Dose: 2 puff Documented by: Alprazolam (Alprazolam 0.25 Mg Tab) 0.25 mg PO TID PRN PRN Reason: Anxiety Last Admin: 04/18/20 20:01 Dose: 0.25 mg Documented by: Ascorbic Acid (Ascorbic Acid 500 Mg Tab) 250 mg PO DAILY [facility] Last Admin: 04/19/20 08:50 Dose: 250 mg Documented by: Cholecalciferol (Cholecalciferol 1,000 Unit Tab) 1,000 unit PO DAILY [facility] Last Admin: 04/19/20 08:50 Dose: 1,000 unit Documented by: Enoxaparin Sodium (Enoxaparin 60 Mg/0.6 Ml Syringe) 60 mg SQ BID [facility] Last Admin: 04/19/20 08:50 Dose: 60 mg Documented by: Famotidine (Famotidine 20 Mg Tab) 20 mg PO BID [facility] Last Admin: 04/19/20 08:50 Dose: 20 mg Documented by: Folic Acid (Folic Acid 1 Mg Tab) 1 mg PO DAILY@1200 [facility] Last Admin: 04/19/20 12:20 Dose: 1 mg Documented by: HCTZ/Losartan Potassium (Losartan-Hctz 50-12.5 Mg 1 Each Tab) 1 each PO DAILY [facility] Last Admin: 04/19/20 08:50 Dose: 1 each Documented by: Insulin Aspart (Insulin Aspart (Novolog) 100 Unit/Ml Vial) 0 unit SQ [facility]; Protocol Last Admin: 04/19/20 17:58 Dose: Not Given Documented by: Levothyroxine Sodium (Levothyroxine 50 Mcg Tab) 50 mcg PO DAILY@0630 [facility] Last Admin: 04/19/20 07:14 Dose: 50 mcg Documented by: Methylprednisolone Sodium Succinate (Methylprednisolone Sod Succi 40 Mg/Ml 1 Ml Vial) 40 mg IV Q12HR [facility] Last Admin: 04/19/20 08:50 Dose: 40 mg Documented by: Metoprolol Tartrate (Metoprolol Tartrate 25 Mg Tab) 25 mg PO BID [facility] Last Admin: 04/19/20 08:50 Dose: 25 mg Documented by: Miscellaneous Information (Potassium Replacement Protocol 1 Each Misc) 1 each MISCELLANE DAILY PRN; Protocol PRN Reason: Per Protocol Multivitamins (Multivitamins, Thera 1 Each Tab) 1 each PO DAILY@1200 [facility] Last Admin: 04/19/20 12:20 Dose: 1 each Documented by: Naloxone HCl (Naloxone 0.4 Mg/Ml 1 Ml Vial) 0.2 mg IV Q2M PRN PRN Reason: Opioid Reversal Ondansetron HCl (Ondansetron 4 Mg/2 Ml Vial) 4 mg IVP Q6HR PRN PRN Reason: Nausea And Vomiting Thiamine HCl (Thiamine 100 Mg Tab) 100 mg PO DAILY@1200 [facility] Last Admin: 04/19/20 12:20 Dose: 100 mg Documented by: Zinc Sulfate (Zinc Sulfate 220 Mg Cap) 220 mg PO DAILY [facility] Last Admin: 04/19/20 08:50 Dose: 220 mg Documented by: Objective - Vital Signs Vital signs: Vital Signs Temp 97.6 F 04/19/20 12:00 Pulse 79 04/19/20 14:00 Resp 26 H 04/19/20 14:00 BP 121/66 04/19/20 14:00 Pulse Ox 92 L 04/19/20 14:00 Intake & Output 04/18/20 04/19/20 04/19/20 18:59 06:59 18:59 Intake Total 200 Output Total 1989 286 993 Balance -1989 -410 -690 Weight 95.3 kg Intake: Oral 200 Output: Urine 1989 610 690 Other: Voiding Method Indwelling Catheter Indwelling Catheter Indwelling Catheter - Exam PHYSICAL EXAMINATION: GENERAL: The patient is alert and oriented X3- on BiPAP HEENT: No pallor. No icterus. CARDIOVASCULAR: S1 and S2 present. PULMONARY: Rhonchi at the bases ABDOMEN: Soft, nontender, nondistended, normoactive bowel sounds. EXTREMITIES: No cyanosis, clubbing, or pedal edema. NEUROLOGICAL: No focal neurological deficits. - Labs CBC & Chem 7: 04/19/20 03:44 04/19/20 03:44 Labs: Abnormal Lab Results - Last 24 Hours (Table) 04/17/20 04/18/20 04/18/20 Range/Units 09:20 16:51 19:47 WBC (3.8-10.6) k/uL RBC (3.80-5.40) m/uL Hgb (11.4-16.0) gm/dL Hct (34.0-46.0) % Neutrophils # (1.3-7.7) k/uL Lymphocytes # (1.0-4.8) k/uL D-Dimer (<0.60) mg/L FEU Sodium (137-145) mmol/L Chloride (98-107) mmol/L Carbon Dioxide (22-30) mmol/L BUN (7-17) mg/dL Glucose (74-99) mg/dL POC Glucose (mg/dL) 185 H 144 H (75-99) mg/dL Calcium (8.4-10.2) mg/dL Ferritin (10.0-291.0) ng/mL Total Bilirubin (0.2-1.3) mg/dL AST (14-36) U/L Lactate Dehydrogenase (313-618) U/L C-Reactive Protein (<10.0) mg/L Total Protein (6.3-8.2) g/dL Albumin (3.5-5.0) g/dL Interleukin 6 57.1 H (<6.4) pg/mL 04/19/20 04/19/20 04/19/20 Range/Units 03:44 03:44 03:44 WBC 27.3 H (3.8-10.6) k/uL RBC 5.62 H (3.80-5.40) m/uL Hgb 17.4 H (11.4-16.0) gm/dL Hct 52.5 H (34.0-46.0) % Neutrophils # 25.3 H (1.3-7.7) k/uL Lymphocytes # 0.7 L (1.0-4.8) k/uL D-Dimer 3.56 H (<0.60) mg/L FEU Sodium 133 L (137-145) mmol/L Chloride 93 L (98-107) mmol/L Carbon Dioxide 35 H (22-30) mmol/L BUN 31 H (7-17) mg/dL Glucose 111 H (74-99) mg/dL POC Glucose (mg/dL) (75-99) mg/dL Calcium 8.2 L (8.4-10.2) mg/dL Ferritin 3195.4 H (10.0-291.0) ng/mL Total Bilirubin 1.5 H (0.2-1.3) mg/dL AST 63 H (14-36) U/L Lactate Dehydrogenase 2747 H (313-618) U/L C-Reactive Protein 217.6 H (<10.0) mg/L Total Protein 6.2 L (6.3-8.2) g/dL Albumin 2.8 L (3.5-5.0) g/dL Interleukin 6 (<6.4) pg/mL 04/19/20 04/19/20 Range/Units 06:48 12:34 WBC (3.8-10.6) k/uL RBC (3.80-5.40) m/uL Hgb (11.4-16.0) gm/dL Hct (34.0-46.0) % Neutrophils # (1.3-7.7) k/uL Lymphocytes # (1.0-4.8) k/uL D-Dimer (<0.60) mg/L FEU Sodium (137-145) mmol/L Chloride (98-107) mmol/L Carbon Dioxide (22-30) mmol/L BUN (7-17) mg/dL Glucose (74-99) mg/dL POC Glucose (mg/dL) 107 H 138 H (75-99) mg/dL Calcium (8.4-10.2) mg/dL Ferritin (10.0-291.0) ng/mL Total Bilirubin (0.2-1.3) mg/dL AST (14-36) U/L Lactate Dehydrogenase (313-618) U/L C-Reactive Protein (<10.0) mg/L Total Protein (6.3-8.2) g/dL Albumin (3.5-5.0) g/dL Interleukin 6 (<6.4) pg/mL Microbiology - Last 24 Hours (Table) 04/13/20 14:58 Blood Culture - Preliminary Blood No Growth after 120 hours Assessment and Plan Assessment: ASSESSMENT Acute hypoxic respiratory failure- due to COVID 19 pneumonia Increased d-dimer without evidence of PE Hyponatremia Leukocytosis Elevated and she telemetry markers Hypertension Hypothyroidism History of bilateral posterior tibial tendon repair Obesity with BMI of 35 PLAN: Overall worse compared to yesterday and she is placed on BiPAP. She is to be continued on dexamethasone, completed Remdesevir. Her dose of Lovenox has been increased to 60 mg as her D-dimer was high. Continue with breathing treatments. We'll continue to adjust her dose of insulin depending upon the blood sugar levels. Overall prognosis is guarded. Further recommendations to follow depending on the progress of the patient.
[2020-04-19] MEDS ORDERED: MELATONIN 5 MG TABLET PO PRN (19:45)
[2020-04-19] MEDS: ALPRAZolam 0.5 MG TAB PO PRN (20:08)
[2020-04-19 20:56] LABS: Glucose,Whole Blood 140 mg/dL (75-99)
--- NOTE | 2020-04-19 22:25 | PN ---
PROGRESS NOTE DATE OF SERVICE: 04/19/2020 REASON FOR FOLLOWUP: COVID-19 pneumonia. INTERVAL HISTORY: The patient is currently afebrile. The patient has been off and on the BiPAP. Breathing slightly comfortably. The patient denies having any chest pain. She did have some cough but no sputum. No abdominal pain or diarrhea. PHYSICAL EXAMINATION: Blood pressure 111/78 with a pulse of 71, temperature 98. She is 95% on BiPAP. General description is an elderly female lying in bed in no distress. RESPIRATORY SYSTEM: Unlabored breathing with decreased intensity of breath sounds. No wheeze. HEART: S1, S2. Regular rate and rhythm. ABDOMEN: Soft. No tenderness. LABS: Hemoglobin 17.4 with white count 27.3, BUN of 31, creatinine 0.72. DIAGNOSTIC IMPRESSION AND PLAN: Patient with acute respiratory failure secondary to COVID-19 pneumonia with a concern for possible acute respiratory distress syndrome/cytokine storm with elevated inflammatory markers. She is on Solu-Medrol 40 q.12 ,continue with zinc, Lovenox and supportive treatment. MMODL / IJN: [id number] / MTDD
[2020-04-19] MEDS: SODIUM CHLORIDE 0.9% 1,000 ML IV SCH (23:38)
[2020-04-20 04:32] LABS: Basophils # (A) 0.1 k/uL (0-0.2); Basophils % (A) 0 %; Eosinophils % (A) 0 %; HCT 52.6 % (34.0-46.0); HGB 17.6 gm/dL (11.4-16.0); Lymphocytes # (A) 0.6 k/uL (1.0-4.8); Lymphocytes % (A) 2 %; MCH 31.4 pg (25.0-35.0); MCHC 33.5 g/dL (31.0-37.0); MCV 93.9 fL (80.0-100.0); Mean Platelet Volume 7.8; Monocytes # (A) 1.3 k/uL (0-1.0); Monocytes % (A) 5 %; Neutrophils # (A) 25.8 k/uL (1.3-7.7); Neutrophils % (A) 92 %; Platelet Count 344 k/uL (150-450); RDW 13.3 % (11.5-15.5); WBC 28.1 k/uL (3.8-10.6)
[2020-04-20 04:44] LABS: ALT 29 U/L (4-34); AST 51 U/L (14-36); African American GFR (CKD) >90 (>60 ml/min/1.73 sqM); Albumin 2.5 g/dL (3.5-5.0); Alkaline Phosphatase 86 U/L (38-126); Anion Gap 3 mmol/L; Blood Urea Nitrogen 31 mg/dL (7-17); Calcium 8.2 mg/dL (8.4-10.2); Carbon Dioxide 32 mmol/L (22-30); Chloride 99 mmol/L (98-107); Glucose 175 mg/dL (74-99); Non-African American GFR(CKD) >90 (>60 ml/min/1.73 sqM); Potassium 4.7 mmol/L (3.5-5.1); Sodium 134 mmol/L (137-145); Total Bilirubin 1.3 mg/dL (0.2-1.3)
[2020-04-20 05:43] LABS: LDH 2386 U/L (313-618)
[2020-04-20] MEDS: LEVOTHYROXINE 50 MCG TAB PO SCH (06:50)
[2020-04-20] MEDS: ALBUTEROL HFA INHALER INHALATION SCH ×3 (07:19→20:02)
[2020-04-20 07:21] LABS: Glucose,Whole Blood 153 mg/dL (75-99)
[2020-04-20] MEDS: INSULIN ASPART (NovoLOG) 100 UNIT/ML VIAL SQ SCH ×4 (07:39→21:49)
[2020-04-20] MEDS: ASCORBIC ACID 500 MG TAB PO SCH (08:26)
[2020-04-20] MEDS: methylPREDNISolone SOD SUCCI 40 MG/ML 1 ML VIAL IV SCH ×2 (08:27→21:56)
[2020-04-20] MEDS: METOPROLOL TARTRATE 25 MG TAB PO SCH ×2 (08:27→21:56)
[2020-04-20] MEDS: CHOLECALCIFEROL 1,000 UNIT TAB PO SCH (08:27)
[2020-04-20] MEDS: ZINC SULFATE 220 MG CAP PO SCH (08:27)
[2020-04-20] MEDS: LOSARTAN-HCTZ 50-12.5 MG 1 EACH TAB PO SCH (08:27)
[2020-04-20] MEDS: FAMOTIDINE 20 MG TAB PO SCH ×2 (08:27→21:56)
[2020-04-20] MEDS: ENOXAPARIN 60 MG/0.6 ML SYRINGE SQ SCH ×2 (08:27→21:55)
--- NOTE | 2020-04-20 09:35 | XR ---
EXAMINATION TYPE: XR chest 1V portable DATE OF EXAM: 04/20/2020 Comparison: 04/19/2020 Clinical History: 69-year-old female COVID; r/o fluid overload Findings: Heart normal size atherosclerotic arch calcifications. Interstitial opacities persist greatest in the mid and lower lungs. Slight improving aeration of the lung bases. Impression: Bilateral interstitial infiltrates persist. Aeration may be minimally improving at the lung bases. No sizable effusion.
--- NOTE | 2020-04-20 10:15 | P.PN ---
Subjective Progress Note Date: 04/20/20 Principal diagnosis: COVID 19 pneumonia 69-year-old female admitted back on 04/11/2020. She was transferred down from [facility]. She was admitted with a diagnosis of acute hypoxemic respiratory failure secondary to COVID pneumonia. Currently, she is on BiPAP with an IPAP of 14 and an EPAP of 6 and 100% or on AIRVO, at 60 L/m or an FiO2 of 90%. She is also on saline IV at 30 mL an hour. That will be increased up to 75 mL an hour. She's doing about the same today as yesterday. She did receive redesivir for 5 days and 2 doses of convalescent plasma. The patient has a history of nicotine dependence, obesity, and was negative for pulmonary embolism. The patient's chest x-ray is stable today. She has not gotten much better nor has she gotten much worse. She remains in the intensive care unit. She's in room 257. Objective - Vital Signs Vital signs: Vital Signs Temp 97.5 F L 04/20/20 08:00 Pulse 71 04/20/20 09:00 Resp 19 04/20/20 09:00 BP 142/76 04/20/20 09:00 Pulse Ox 87 L 04/20/20 09:00 Intake & Output 04/19/20 04/20/20 04/20/20 18:59 06:59 18:59 Intake Total 390 335 Output Total 990 585 115 Balance -990 -195 220 Intake: IV 105 Sodium Chloride 0.9% 1, 105 000 ml @ 75 mls/hr IV . [id number] PERRY Rx#:[id number] Oral 150 200 Lipid 240 30 Sodium Chloride 0.9% 1, 240 30 000 ml @ 75 mls/hr IV . [id number] PERRY Rx#:[id number] Output: Urine 990 585 115 Other: Voiding Method Indwelling Catheter Indwelling Catheter Indwelling Catheter - Exam No acute distress, oriented 3. Currently on BiPAP. HEENT examination is grossly unremarkable. Mucous membranes are moist. No oral lesions. Neck supple. Full range of motion. No adenopathy thyromegaly or neck vein distention. Cardiovascular examination reveals regular rhythm rate. S1-S2 normal. No S3 or S4. No discernible murmur noted. Lungs reveal coarse bilateral rhonchi and crackles. Breath sounds are equal bilaterally but diminished throughout. No wheezes. Abdomen soft bowel sounds are heard. No masses or tenderness. Extremities are intact. No cyanosis clubbing or edema. Skin is without rash or lesion. Neurologic examination is brief but nonfocal. - Labs CBC & Chem 7: 04/20/20 03:50 04/20/20 03:50 Labs: Abnormal Lab Results - Last 24 Hours (Table) 04/17/20 04/19/20 04/19/20 Range/Units 09:20 03:44 12:34 WBC (3.8-10.6) k/uL RBC (3.80-5.40) m/uL Hgb (11.4-16.0) gm/dL Hct (34.0-46.0) % Neutrophils # (1.3-7.7) k/uL Lymphocytes # (1.0-4.8) k/uL Monocytes # (0-1.0) k/uL D-Dimer (<0.60) mg/L FEU Sodium (137-145) mmol/L Carbon Dioxide (22-30) mmol/L BUN (7-17) mg/dL Glucose (74-99) mg/dL POC Glucose (mg/dL) 138 H (75-99) mg/dL Calcium (8.4-10.2) mg/dL Ferritin 3195.4 H (10.0-291.0) ng/mL AST (14-36) U/L Lactate Dehydrogenase (313-618) U/L Total Protein (6.3-8.2) g/dL Albumin (3.5-5.0) g/dL Interleukin 6 57.1 H (<6.4) pg/mL 04/19/20 04/20/20 04/20/20 Range/Units 20:54 03:50 03:50 WBC 28.1 H (3.8-10.6) k/uL RBC 5.60 H (3.80-5.40) m/uL Hgb 17.6 H (11.4-16.0) gm/dL Hct 52.6 H (34.0-46.0) % Neutrophils # 25.8 H (1.3-7.7) k/uL Lymphocytes # 0.6 L (1.0-4.8) k/uL Monocytes # 1.3 H (0-1.0) k/uL D-Dimer 3.01 H (<0.60) mg/L FEU Sodium (137-145) mmol/L Carbon Dioxide (22-30) mmol/L BUN (7-17) mg/dL Glucose (74-99) mg/dL POC Glucose (mg/dL) 140 H (75-99) mg/dL Calcium (8.4-10.2) mg/dL Ferritin (10.0-291.0) ng/mL AST (14-36) U/L Lactate Dehydrogenase (313-618) U/L Total Protein (6.3-8.2) g/dL Albumin (3.5-5.0) g/dL Interleukin 6 (<6.4) pg/mL 04/20/20 04/20/20 Range/Units 03:50 07:19 WBC (3.8-10.6) k/uL RBC (3.80-5.40) m/uL Hgb (11.4-16.0) gm/dL Hct (34.0-46.0) % Neutrophils # (1.3-7.7) k/uL Lymphocytes # (1.0-4.8) k/uL Monocytes # (0-1.0) k/uL D-Dimer (<0.60) mg/L FEU Sodium 134 L (137-145) mmol/L Carbon Dioxide 32 H (22-30) mmol/L BUN 31 H (7-17) mg/dL Glucose 175 H (74-99) mg/dL POC Glucose (mg/dL) 153 H (75-99) mg/dL Calcium 8.2 L (8.4-10.2) mg/dL Ferritin (10.0-291.0) ng/mL AST 51 H (14-36) U/L Lactate Dehydrogenase 2386 H (313-618) U/L Total Protein 6.0 L (6.3-8.2) g/dL Albumin 2.5 L (3.5-5.0) g/dL Interleukin 6 (<6.4) pg/mL Microbiology - Last 24 Hours (Table) 04/13/20 14:58 Blood Culture - Final Blood No Growth after 144 hours Assessment and Plan Assessment: COVID 19 pneumonia/pneumonitis, with acute hypoxemic respiratory failure, cur rently on BiPAP or AIRVO. History of previous hysterectomy. Remote history of tobacco use. Obesity Elevated d-dimer, without evidence of pulmonary embolism. Plan dated 04/20/2020 The patient remains on appropriate medications including site Medrol, vitamin C, vitamin D3, and zinc. The patient did complete 5 days of remdesivir and 2 doses of convalescent plasma. The patient is continuing in the intensive care unit. She is still requiring high concentrations of oxygen. Her overall prognosis is guarded. Hopefully she will get better and did not require intubation or mechanical ventilation. We'll continue to follow and watch/observe closely. Time with Patient: Greater than 30
[2020-04-20] MEDS: MULTIVITAMINS, THERA 1 EACH TAB PO SCH (11:18)
[2020-04-20] MEDS: FOLIC ACID 1 MG TAB PO SCH (11:18)
[2020-04-20] MEDS: THIAMINE 100 MG TAB PO SCH (11:18)
[2020-04-20 12:01] LABS: Glucose,Whole Blood 178 mg/dL (75-99)
[2020-04-20 17:01] LABS: Glucose,Whole Blood 115 mg/dL (75-99)
--- NOTE | 2020-04-20 20:25 | P.PN ---
Subjective Ms. Mccoy is a 69-year-old female with a past medical history of hypertension and thyroid disorder admitted to the hospital for acute hypoxic respiratory failure secondary to COVID 19 pneumonia. Patient has extensive bilateral interstitial pneumonia. She is on a low and pulmonary Dr. Mathews is following the patient. Patient received a convalescent plasma, is also on Remdesivir. On 04/17/2020- This morning patient was evaluated in the ICU. Patient is comfortably sitting in a chair states that her breathing is improving gradually. She denies having any chest pain or palpitations. No cough or hemoptysis. She denies having any swelling or for lower extremities. No abdominal pain nausea vomiting or diarrhea. She denies having any dysuria or hematuria, she has a Bryan's catheter in place. On reviewing her vitals temperature 98.1 heart rate 75 is 5817, blood pressure 1:30 bradycardia. Saturating at 96% on a Aervo -60%. On 04/18/2020 - patient was seen and examined in the ICU. Patient is sitting in a chair by the bedside, states that her breathing has worsened compared to yesterday. Patient is on high flow Airvo, saturating in the low 90s. She denies having any chest pain or palpitations. She complains of cough that is nonproductive. Patient had a chest x-ray done showing stable bilateral air space disease. As the patient was having few episodes of tachycardia, she was started on Lopressor this morning. Patient's inflammatory markers are noted to be high. On reviewing her vitals saturating at 90% on high flow Airvo, heart rate 70s to 80s, respiratory rate 20-25, blood pressure 106-67. In reviewing her labs white count of 29.3, hemoglobin 16.8, platelets 369. D-dimer 6.99, LDH 2969, CRP 63.9. On 04/19/2020 - patient is seen and examined in the ICU. She is currently on BiPAP, as her respiratory status has worsened compared to yesterday. Patient denies having any chest pain or palpitations. No abdominal pain nausea vomiting or diarrhea. No dysuria or hematuria. She is on BiPAP 14/6 and 100% FiO2. On reviewing her vitals temperature is 99.2, respiratory rate is 25, heart rate 70, blood pressure 10 9 x 71. Reviewing the labs white count of 27.3, hemoglobin 17.4, platelets 314. Sodium 133, potassium 4.4, chloride 90, bicarbonate 35, BUN 31, creatinine 0.72. Ferritin 3195, CRP 217 and LDH 2747. 04/20/2020 This is a pleasant 69 years old female with multiple medical problems was adm itted for bilateral Covid pneumonia, she is currently on aervo at 90%/60 L of oxygen, saturating 89%. Rest of Vitas looks stable Also she is on BiPAP All the night. She is able to eat and drink, no pressors She is on normal saline at 75 mL/h with adequate urine output Patient is currently ON Medrol 40 mg twice daily, Lovenox 60 mg twice Mary and vitamin C and zinc. She finished her remdisvir and convelecent plasma. Objective - Vital Signs Vital signs: Vital Signs Temp 98 F 04/20/20 12:00 Pulse 73 04/20/20 12:00 Resp 20 04/20/20 12:00 BP 117/94 04/20/20 12:00 Pulse Ox 86 L 04/20/20 12:00 Intake & Output 04/19/20 04/20/20 04/20/20 18:59 06:59 18:59 Intake Total 390 760 Output Total 990 585 330 Balance -990 -195 430 Intake: IV 330 Sodium Chloride 0.9% 1, 330 000 ml @ 75 mls/hr IV . [id number] PERRY Rx#:[id number] Oral 150 400 Lipid 240 30 Sodium Chloride 0.9% 1, 240 30 000 ml @ 75 mls/hr IV . [id number] PERRY Rx#:[id number] Output: Urine 990 585 330 Other: Voiding Method Indwelling Catheter Indwelling Catheter Indwelling Catheter - Exam GENERAL: The patient is alert and oriented x3, not in any acute distress. Well developed, well nourished. HEENT: Pupils are round and equally reacting to light. EOMI. No scleral icterus. No conjunctival pallor. Normocephalic, atraumatic. No pharyngeal erythema. No thyromegaly. CARDIOVASCULAR: S1 and S2 present. No murmurs, rubs, or gallops. -PULMONARY: Chest is clear to auscultation, bilateral crepitation ABDOMEN: Soft, nontender, nondistended, normoactive bowel sounds. No palpable organomegaly. MUSCULOSKELETAL: No joint swelling or deformity. EXTREMITIES: No cyanosis, clubbing, or pedal edema. NEUROLOGICAL: Gross neurological examination did not reveal any focal deficits. SKIN: No rashes. no petechiae. - Labs CBC & Chem 7: 04/20/20 03:50 04/20/20 03:50 Labs: Abnormal Lab Results - Last 24 Hours (Table) 04/17/20 04/19/20 04/20/20 Range/Units 09:20 20:54 03:50 WBC (3.8-10.6) k/uL RBC (3.80-5.40) m/uL Hgb (11.4-16.0) gm/dL Hct (34.0-46.0) % Neutrophils # (1.3-7.7) k/uL Lymphocytes # (1.0-4.8) k/uL Monocytes # (0-1.0) k/uL D-Dimer 3.01 H (<0.60) mg/L FEU Sodium (137-145) mmol/L Carbon Dioxide (22-30) mmol/L BUN (7-17) mg/dL Glucose (74-99) mg/dL POC Glucose (mg/dL) 140 H (75-99) mg/dL Calcium (8.4-10.2) mg/dL AST (14-36) U/L Lactate Dehydrogenase (313-618) U/L Total Protein (6.3-8.2) g/dL Albumin (3.5-5.0) g/dL Interleukin 6 57.1 H (<6.4) pg/mL 04/20/20 04/20/20 04/20/20 Range/Units 03:50 03:50 07:19 WBC 28.1 H (3.8-10.6) k/uL RBC 5.60 H (3.80-5.40) m/uL Hgb 17.6 H (11.4-16.0) gm/dL Hct 52.6 H (34.0-46.0) % Neutrophils # 25.8 H (1.3-7.7) k/uL Lymphocytes # 0.6 L (1.0-4.8) k/uL Monocytes # 1.3 H (0-1.0) k/uL D-Dimer (<0.60) mg/L FEU Sodium 134 L (137-145) mmol/L Carbon Dioxide 32 H (22-30) mmol/L BUN 31 H (7-17) mg/dL Glucose 175 H (74-99) mg/dL POC Glucose (mg/dL) 153 H (75-99) mg/dL Calcium 8.2 L (8.4-10.2) mg/dL AST 51 H (14-36) U/L Lactate Dehydrogenase 2386 H (313-618) U/L Total Protein 6.0 L (6.3-8.2) g/dL Albumin 2.5 L (3.5-5.0) g/dL Interleukin 6 (<6.4) pg/mL 04/20/20 Range/Units 11:59 WBC (3.8-10.6) k/uL RBC (3.80-5.40) m/uL Hgb (11.4-16.0) gm/dL Hct (34.0-46.0) % Neutrophils # (1.3-7.7) k/uL Lymphocytes # (1.0-4.8) k/uL Monocytes # (0-1.0) k/uL D-Dimer (<0.60) mg/L FEU Sodium (137-145) mmol/L Carbon Dioxide (22-30) mmol/L BUN (7-17) mg/dL Glucose (74-99) mg/dL POC Glucose (mg/dL) 178 H (75-99) mg/dL Calcium (8.4-10.2) mg/dL AST (14-36) U/L Lactate Dehydrogenase (313-618) U/L Total Protein (6.3-8.2) g/dL Albumin (3.5-5.0) g/dL Interleukin 6 (<6.4) pg/mL Microbiology - Last 24 Hours (Table) 04/13/20 14:58 Blood Culture - Final Blood No Growth after 144 hours Assessment and Plan Assessment: Acute hypoxic respiratory failure- due to COVID 19 pneumonia Increased d-dimer without evidence of PE Hyponatremia Leukocytosis Elevated and she telemetry markers Hypertension Hypothyroidism History of bilateral posterior tibial tendon repair Obesity with BMI of 35 Plan: This is a pleasant 69 years old female with Covid pneumonia and hypoxic respiratory failure. Continue with oxygen supplementation as needed, currently on airvo, with pulmonary/critical care team and follow the case closely. With her inflammatory markers. Continue with Solu-Medrol and Lovenox and zinc and vitamin C. Monitored WBC Labs and medication were reviewed.. Continue same treatment. Continue with symptomatic treatment. Resume home medication. Monitor lytes and vitals. DVT and GI prophylaxis. Further recommendationsas per clinical course of the patient DVT prophylaxis: Subcutaneous Lovenox GI Prophylaxis: Pepcid Prognosis is guarded
[2020-04-20 21:50] LABS: Glucose,Whole Blood 109 mg/dL (75-99)
--- NOTE | 2020-04-20 21:51 | PN ---
PROGRESS NOTE DATE OF SERVICE: 04/20/2020 REASON FOR FOLLOWUP: COVID-19 pneumonia. INTERVAL HISTORY: The patient is currently afebrile. The patient is breathing slightly comfortably. The patient denies having any chest pain. Occasional cough. No abdominal pain or diarrhea. PHYSICAL EXAMINATION: Blood pressure is 115/61, pulse of 70, temperature 98. She is 93% on BiPAP. General description is an elderly female up in the chair in no distress. RESPIRATORY SYSTEM: Unlabored breathing with decreased intensity of breath sounds. No wheeze. HEART: S1, S2. Regular rate and rhythm. ABDOMEN: Soft. No tenderness. LABS: Hemoglobin is 17.6, white count 28.1. BUN of 31, creatinine 0.53. DIAGNOSTIC IMPRESSION AND PLAN: 1. Patient with acute respiratory failure which is more likely secondary to underlying COVID-19 pneumonia. This patient has completed her remdesivir therapy, currently on steroids, zinc and Lovenox; to continue along with respiratory support. 2. Patient with elevated white count, more likely steroid effect, as there is no evidence of any secondary infection. MMODL / IJN: [id number] /
[2020-04-20] MEDS: SODIUM CHLORIDE 0.9% 1,000 ML IV SCH (21:56)
[2020-04-20] MEDS: ALPRAZolam 0.5 MG TAB PO PRN (22:13)
[2020-04-21] MEDS: LEVOTHYROXINE 50 MCG TAB PO SCH (04:35)
[2020-04-21 04:42] LABS: ALT 56 U/L (4-34); AST 70 U/L (14-36); African American GFR (CKD) >90 (>60 ml/min/1.73 sqM); Albumin 2.5 g/dL (3.5-5.0); Alkaline Phosphatase 135 U/L (38-126); Anion Gap 4 mmol/L; Blood Urea Nitrogen 23 mg/dL (7-17); Calcium 8.1 mg/dL (8.4-10.2); Carbon Dioxide 30 mmol/L (22-30); Chloride 100 mmol/L (98-107); Glucose 76 mg/dL (74-99); Non-African American GFR(CKD) 85 (>60 ml/min/1.73 sqM); Potassium 4.5 mmol/L (3.5-5.1); Sodium 134 mmol/L (137-145); Total Bilirubin 1.5 mg/dL (0.2-1.3); Total Protein 6.2 g/dL (6.3-8.2)
[2020-04-21 04:51] LABS: LDH 2500 U/L (313-618)
[2020-04-21 04:53] LABS: Basophils # (A) 0.1 k/uL (0-0.2); Basophils % (A) 0 %; Eosinophils # (A) 0.1 k/uL (0-0.7); Eosinophils % (A) 1 %; HCT 51.7 % (34.0-46.0); HGB 16.9 gm/dL (11.4-16.0); Lymphocytes # (A) 1.1 k/uL (1.0-4.8); Lymphocytes % (A) 4 %; MCH 30.9 pg (25.0-35.0); MCHC 32.6 g/dL (31.0-37.0); MCV 94.6 fL (80.0-100.0); Mean Platelet Volume 8.3; Monocytes # (A) 1.3 k/uL (0-1.0); Monocytes % (A) 4 %; Neutrophils % (A) 91 %; Platelet Count 363 k/uL (150-450); RBC 5.47 m/uL (3.80-5.40); RDW 13.3 % (11.5-15.5); WBC 29.7 k/uL (3.8-10.6)
[2020-04-21 04:59] LABS: C Reactive Protein 144.2 mg/L (<10.0)
[2020-04-21] MEDS: ALBUTEROL HFA INHALER INHALATION SCH ×3 (07:36→20:25)
[2020-04-21] MEDS: INSULIN ASPART (NovoLOG) 100 UNIT/ML VIAL SQ SCH ×4 (07:38→22:11)
[2020-04-21] MEDS: METOPROLOL TARTRATE 25 MG TAB PO SCH (07:54)
--- NOTE | 2020-04-21 08:03 | XR ---
EXAMINATION TYPE: XR chest 1V portable DATE OF EXAM: 04/21/2020 Comparison: 04/20/2020 Clinical History: 69-year-old female COVID; rule out fluid overload Findings: Heart normal size. Atherosclerotic arch calcifications. Interstitial opacities mid and lower lungs. T hese are becoming more confluent left base. No sizable effusion on the frontal view. Impression: Interstitial infiltrates persist in the mid and lower lungs and are becoming more confluent in the le ft base now. Possible atypical interstitial pulmonary edema versus atypical pneumonia.
[2020-04-21] MEDS: FAMOTIDINE 20 MG/2 ML VIAL IV SCH ×3 (09:00→22:11)
[2020-04-21] MEDS: ENOXAPARIN 60 MG/0.6 ML SYRINGE SQ SCH ×2 (09:00→22:10)
--- NOTE | 2020-04-21 10:04 | P.PN ---
Subjective Progress Note Date: 04/21/20 Principal diagnosis: COVID 19 pneumonia This 69-year-old white female patient who was admitted to the hospital on 04/11/2020 when she came in for evaluation of 1 week history of cough, fever, shortness of breath, decreased appetite and intermittent episodes of diarrhea. Patient was diagnosed with COVID 19 pneumonia, this was done via outpatient testing through the health Department. Patient initially presented for [facility], she was hypoxemic with a pulse ox in the 80s and she was placed on high flow oxygen and transferred to the [facility]. CT a ngiogram of the chest showed no evidence of pulmonary embolism, however it showed evidence of bilateral interstitial infiltrates consistent with COVID 19 pneumonitis. Patient completed her Remdesivir treatment on 04/16/2020, she received 2 units of convalescent plasma, she remains on IV steroids with IV Solu-Medrol 40 mg every 12 hours. She is on point and was seen at a rate of 75 ML per hour. In view of her worsening hypoxemia patient was transferred to the intensive care unit, she is currently on BiPAP support with pressures of 14/6, and FiO2 of 100%, patient has been pretty much BiPAP dependent, her pulse ox is 82-84%, this morning patient had episode of SVT with a heart rate up to 250, patient has been afebrile, T-max in last 24 hours was 102.2F. Today's chest x- ray still shows interstitial infiltrates in the mid and lower lungs that are becoming more confluent in the left base. His labs have been reviewed, showing white blood cell, 29.7, hemoglobin of 16.9, lymphocyte count is 1.1, and neutrophil count is 27, fibrinogen level is 963, her last d-dimer was yesterday at 3.01, sodium is 134, the rest a large joints were unremarkable, B1 is 23 creatinine 0.73, total bilirubin is 1.5, her liver enzymes have worsened, AST 70, ALT is 56, alk phos is 135, LDH is 2500, CRP is 144, patient's interleukin-6 level was significantly elevated at 57.1. Patient remains on Lovenox 60 mg twice daily. Objective - Vital Signs Vital signs: Vital Signs Temp 100 F H 04/21/20 06:00 Pulse 74 04/21/20 09:00 Resp 20 04/21/20 09:00 BP 131/74 04/21/20 09:00 Pulse Ox 90 L 04/21/20 09:00 Intake & Output 04/20/20 04/21/20 04/21/20 18:59 06:59 18:59 Intake Total 1610 900 150 Output Total 610 520 70 Balance 1000 380 80 Weight 95.3 kg 93.2 kg Intake: IV 780 900 150 Sodium Chloride 0.9% 1, 780 900 150 000 ml @ 75 mls/hr IV . [id number] PERRY Rx#:[id number] Oral 800 Lipid 30 Sodium Chloride 0.9% 1, 30 000 ml @ 75 mls/hr IV . [id number] PERRY Rx#:[id number] Output: Urine 610 520 70 Other: Voiding Method Indwelling Catheter Indwelling Catheter - Exam GENERAL EXAM: Alert, very pleasant, 61-year-old obese white female on BiPAP support, with pressures of 14/6, and FiO2 of 100%, her pulse ox is 82-87%, comfortable in no apparent distress. HEAD: Normocephalic/atraumatic. EYES: Normal reaction of pupils, equal size. Conjunctiva pink, sclera white. NOSE: Clear with pink turbinates. THROAT: No erythema or exudates. NECK: No masses, no JVD, no thyroid enlargement, no adenopathy. CHEST: No chest wall deformity. Symmetrical expansion. LUNGS: Equal air entry with no crackles, wheeze, rhonchi or dullness. CVS: Regular rate and rhythm, normal S1 and S2, no gallops, no murmurs, no rubs ABDOMEN: Soft, nontender. No hepatosplenomegaly, normal bowel sounds, no guarding or rigidity. EXTREMITIES: No clubbing, no edema, no cyanosis, 2+ pulses and upper and lower extremities. MUSCULOSKELETAL: Muscle strength and tone normal. SPINE: No scoliosis or deformity SKIN: No rashes CENTRAL NERVOUS SYSTEM: Alert and oriented -3. No focal deficits, tone is normal in all 4 extremities. PSYCHIATRIC: Alert and oriented -3. Appropriate affect. Intact judgment and insight. - Labs CBC & Chem 7: 04/21/20 03:59 04/21/20 03:59 Labs: Abnormal Lab Results - Last 24 Hours (Table) 04/20/20 04/20/20 04/20/20 Range/Units 11:59 16:59 21:48 WBC (3.8-10.6) k/uL RBC (3.80-5.40) m/uL Hgb (11.4-16.0) gm/dL Hct (34.0-46.0) % Neutrophils # (1.3-7.7) k/uL Monocytes # (0-1.0) k/uL Fibrinogen (200-500) mg/dL Sodium (137-145) mmol/L BUN (7-17) mg/dL POC Glucose (mg/dL) 178 H 115 H 109 H (75-99) mg/dL Calcium (8.4-10.2) mg/dL Total Bilirubin (0.2-1.3) mg/dL AST (14-36) U/L ALT (4-34) U/L Alkaline Phosphatase (38-126) U/L Lactate Dehydrogenase (313-618) U/L Creatine Kinase (30-135) U/L C-Reactive Protein (<10.0) mg/L Total Protein (6.3-8.2) g/dL Albumin (3.5-5.0) g/dL 04/21/20 04/21/20 04/21/20 Range/Units 03:59 03:59 03:59 WBC 29.7 H (3.8-10.6) k/uL RBC 5.47 H (3.80-5.40) m/uL Hgb 16.9 H (11.4-16.0) gm/dL Hct 51.7 H (34.0-46.0) % Neutrophils # 27.0 H (1.3-7.7) k/uL Monocytes # 1.3 H (0-1.0) k/uL Fibrinogen 963 H (200-500) mg/dL Sodium 134 L (137-145) mmol/L BUN 23 H (7-17) mg/dL POC Glucose (mg/dL) (75-99) mg/dL Calcium 8.1 L (8.4-10.2) mg/dL Total Bilirubin 1.5 H (0.2-1.3) mg/dL AST 70 H (14-36) U/L ALT 56 H (4-34) U/L Alkaline Phosphatase 135 H (38-126) U/L Lactate Dehydrogenase 2500 H (313-618) U/L Creatine Kinase (30-135) U/L C-Reactive Protein (<10.0) mg/L Total Protein 6.2 L (6.3-8.2) g/dL Albumin 2.5 L (3.5-5.0) g/dL 04/21/20 Range/Units 03:59 WBC (3.8-10.6) k/uL RBC (3.80-5.40) m/uL Hgb (11.4-16.0) gm/dL Hct (34.0-46.0) % Neutrophils # (1.3-7.7) k/uL Monocytes # (0-1.0) k/uL Fibrinogen (200-500) mg/dL Sodium (137-145) mmol/L BUN (7-17) mg/dL POC Glucose (mg/dL) (75-99) mg/dL Calcium (8.4-10.2) mg/dL Total Bilirubin (0.2-1.3) mg/dL AST (14-36) U/L ALT (4-34) U/L Alkaline Phosphatase (38-126) U/L Lactate Dehydrogenase (313-618) U/L Creatine Kinase 22 L (30-135) U/L C-Reactive Protein 144.2 H (<10.0) mg/L Total Protein (6.3-8.2) g/dL Albumin (3.5-5.0) g/dL Assessment and Plan Plan: Assessment: #1. COVID 19 pneumonia/pneumonitis, with acute hypoxemic respiratory failure, currently on BiPAP or AIRVO. Complete a course of Remdesivir on the 04/16/2020, received 2 units of convalescent plasma patient remains on IV steroids and anticoagulation the form of Lovenox #2. History of previous hysterectomy. #3. Remote history of tobacco use. #4. Obesity #5. Elevated d-dimer, without evidence of pulmonary embolism. #6. Leukocytosis, possibly related to IV steroids, rule out possibility of a bacterial superinfection #7. Elevated liver enzymes likely related to viral pneumonia #8. Elevated inflammatory markers related to acute COVID 19 pneumonia #9. Tachycardia, episode of SVT, related to fever, and severe hypoxemia Plan: We will increase the BiPAP settings to 16/8, and FiO2 of 100%, will empirically start the patient on Zosyn, send another pro calcitonin level, we will discontinue empiric antibiotics if it is low, we will increase IV Solu-Medrol to 60 mg every 6 hours, continue with current dose Lovenox, dry markers are still significantly elevated, d-dimer still elevated but trending down, Patient's condition remains critical, we'll continue to closely monitor in intensive care unit, prognosis is guarded. Continue Toprol I performed a history & physical examination of the patient and discussed their management with my nurse practitioner, Jeanna Hawkins. I reviewed the nurse practitioner's note and agree with the documented findings and plan of care. Lung sounds are positive for bilateral crackles. The findings and the impression was discussed with the patient. I attest to the documentation by the nurse practitioner. Time with Patient: Greater than 30
[2020-04-21 11:27] LABS: Ferritin 3000.6 ng/mL (10.0-291.0)
[2020-04-21] MEDS: ASCORBIC ACID 500 MG TAB PO SCH (11:47)
[2020-04-21] MEDS: CHOLECALCIFEROL 1,000 UNIT TAB PO SCH (11:47)
[2020-04-21 11:48] LABS: Glucose,Whole Blood 86 mg/dL (75-99)
[2020-04-21] MEDS: ZINC SULFATE 220 MG CAP PO SCH (11:48)
[2020-04-21] MEDS: FOLIC ACID 1 MG TAB PO SCH (11:48)
[2020-04-21] MEDS: LOSARTAN-HCTZ 50-12.5 MG 1 EACH TAB PO SCH (11:48)
[2020-04-21] MEDS: MULTIVITAMINS, THERA 1 EACH TAB PO SCH (11:49)
[2020-04-21] MEDS: THIAMINE 100 MG TAB PO SCH (11:49)
[2020-04-21] MEDS ORDERED: ACETAMINOPHEN IV (For NPO) 1,000 MG in EMPTY BAG 1 BAG IVPB STA (11:49)
[2020-04-21] MEDS: PIPERACILLIN-TAZOBACTAM 3.375 GM in SODIUM CHLORIDE 0.9% 100 ML IVPB SCH ×2 (11:53→17:50)
[2020-04-21] MEDS: methylPREDNISolone SOD SUCCI 125 MG/2 ML VIAL IV SCH ×2 (11:53→17:47)
[2020-04-21 16:36] LABS: Glucose,Whole Blood 123 mg/dL (75-99)
--- NOTE | 2020-04-21 18:32 | P.PN ---
Subjective Ms. Mccoy is a 69-year-old female with a past medical history of hypertension and thyroid disorder admitted to the hospital for acute hypoxic respiratory failure secondary to COVID 19 pneumonia. Patient has extensive bilateral interstitial pneumonia. She is on a low and pulmonary Dr. Mathews is following the patient. Patient received a convalescent plasma, is also on Remdesivir. On 04/17/2020- This morning patient was evaluated in the ICU. Patient is comfortably sitting in a chair states that her breathing is improving gradually. She denies having any chest pain or palpitations. No cough or hemoptysis. She denies having any swelling or for lower extremities. No abdominal pain nausea vomiting or diarrhea. She denies having any dysuria or hematuria, she has a Bryan's catheter in place. On reviewing her vitals temperature 98.1 heart rate 75 is 5817, blood pressure 1:30 bradycardia. Saturating at 96% on a Aervo -60%. On 04/18/2020 - patient was seen and examined in the ICU. Patient is sitting in a chair by the bedside, states that her breathing has worsened compared to yesterday. Patient is on high flow Airvo, saturating in the low 90s. She denies having any chest pain or palpitations. She complains of cough that is nonproductive. Patient had a chest x-ray done showing stable bilateral air space disease. As the patient was having few episodes of tachycardia, she was started on Lopressor this morning. Patient's inflammatory markers are noted to be high. On reviewing her vitals saturating at 90% on high flow Airvo, heart rate 70s to 80s, respiratory rate 20-25, blood pressure 106-67. In reviewing her labs white count of 29.3, hemoglobin 16.8, platelets 369. D-dimer 6.99, LDH 2969, CRP 63.9. On 04/19/2020 - patient is seen and examined in the ICU. She is currently on BiPAP, as her respiratory status has worsened compared to yesterday. Patient denies having any chest pain or palpitations. No abdominal pain nausea vomiting or diarrhea. No dysuria or hematuria. She is on BiPAP 14/6 and 100% FiO2. On reviewing her vitals temperature is 99.2, respiratory rate is 25, heart rate 70, blood pressure 10 9 x 71. Reviewing the labs white count of 27.3, hemoglobin 17.4, platelets 314. Sodium 133, potassium 4.4, chloride 90, bicarbonate 35, BUN 31, creatinine 0.72. Ferritin 3195, CRP 217 and LDH 2747. 04/20/2020 This is a pleasant 69 years old female with multiple medical problems was adm itted for bilateral Covid pneumonia, she is currently on aervo at 90%/60 L of oxygen, saturating 89%. Rest of Vitas looks stable Also she is on BiPAP All the night. She is able to eat and drink, no pressors She is on normal saline at 75 mL/h with adequate urine output Patient is currently ON Medrol 40 mg twice daily, Lovenox 60 mg twice Mary and vitamin C and zinc. She finished her remdisvir and convelecent plasma. 04/21/2020 Patient remains in the ICU bed and respiratory support for her bilateral Covid pneumonia. She still dyspneic especially with exertion and she still needs BiPAP during the day shift. Also she had a fever today of 102.2. Patient is empirically on Zosyn/calcitonin check today showing normal level at 0.07. She has leukocytosis of 29K. I agree with Zosyn and I recommended to continue with that for now. Also patient is on steroids 60 mg every 6 hours. As there is no more significant progress progress in her clinical picture Glucose is 123 and inflammatory markers still elevated Objective - Vital Signs Vital signs: Vital Signs Temp 100 F H 04/21/20 06:00 Pulse 89 04/21/20 10:00 Resp 19 04/21/20 10:00 BP 113/67 04/21/20 10:00 Pulse Ox 86 L 04/21/20 10:00 Intake & Output 04/20/20 04/21/20 04/21/20 18:59 06:59 18:59 Intake Total 1610 900 225 Output Total 610 520 100 Balance 1000 380 125 Weight 95.3 kg 93.2 kg Intake: IV 780 900 225 Sodium Chloride 0.9% 1, 780 900 225 000 ml @ 75 mls/hr IV . [id number] PERRY Rx#:[id number] Oral 800 Lipid 30 Sodium Chloride 0.9% 1, 30 000 ml @ 75 mls/hr IV . [id number] PERRY Rx#:[id number] Output: Urine 610 520 100 Other: Voiding Method Indwelling Catheter Indwelling Catheter - Exam GENERAL: The patient is alert and oriented x3, not in any acute distress. Well developed, well nourished. HEENT: Pupils are round and equally reacting to light. EOMI. No scleral icterus. No conjunctival pallor. Normocephalic, atraumatic. No pharyngeal erythema. No thyromegaly. CARDIOVASCULAR: S1 and S2 present. No murmurs, rubs, or gallops. -PULMONARY: Chest is clear to auscultation, bilateral crepitation ABDOMEN: Soft, nontender, nondistended, normoactive bowel sounds. No palpable organomegaly. MUSCULOSKELETAL: No joint swelling or deformity. EXTREMITIES: No cyanosis, clubbing, or pedal edema. NEUROLOGICAL: Gross neurological examination did not reveal any focal deficits. SKIN: No rashes. no petechiae. - Labs CBC & Chem 7: 04/21/20 03:59 04/21/20 03:59 Labs: Abnormal Lab Results - Last 24 Hours (Table) 04/20/20 04/20/20 04/20/20 Range/Units 11:59 16:59 21:48 WBC (3.8-10.6) k/uL RBC (3.80-5.40) m/uL Hgb (11.4-16.0) gm/dL Hct (34.0-46.0) % Neutrophils # (1.3-7.7) k/uL Monocytes # (0-1.0) k/uL Fibrinogen (200-500) mg/dL Sodium (137-145) mmol/L BUN (7-17) mg/dL POC Glucose (mg/dL) 178 H 115 H 109 H (75-99) mg/dL Calcium (8.4-10.2) mg/dL Total Bilirubin (0.2-1.3) mg/dL AST (14-36) U/L ALT (4-34) U/L Alkaline Phosphatase (38-126) U/L Lactate Dehydrogenase (313-618) U/L Creatine Kinase (30-135) U/L C-Reactive Protein (<10.0) mg/L Total Protein (6.3-8.2) g/dL Albumin (3.5-5.0) g/dL 04/21/20 04/21/20 04/21/20 Range/Units 03:59 03:59 03:59 WBC 29.7 H (3.8-10.6) k/uL RBC 5.47 H (3.80-5.40) m/uL Hgb 16.9 H (11.4-16.0) gm/dL Hct 51.7 H (34.0-46.0) % Neutrophils # 27.0 H (1.3-7.7) k/uL Monocytes # 1.3 H (0-1.0) k/uL Fibrinogen 963 H (200-500) mg/dL Sodium 134 L (137-145) mmol/L BUN 23 H (7-17) mg/dL POC Glucose (mg/dL) (75-99) mg/dL Calcium 8.1 L (8.4-10.2) mg/dL Total Bilirubin 1.5 H (0.2-1.3) mg/dL AST 70 H (14-36) U/L ALT 56 H (4-34) U/L Alkaline Phosphatase 135 H (38-126) U/L Lactate Dehydrogenase 2500 H (313-618) U/L Creatine Kinase (30-135) U/L C-Reactive Protein (<10.0) mg/L Total Protein 6.2 L (6.3-8.2) g/dL Albumin 2.5 L (3.5-5.0) g/dL 04/21/20 Range/Units 03:59 WBC (3.8-10.6) k/uL RBC (3.80-5.40) m/uL Hgb (11.4-16.0) gm/dL Hct (34.0-46.0) % Neutrophils # (1.3-7.7) k/uL Monocytes # (0-1.0) k/uL Fibrinogen (200-500) mg/dL Sodium (137-145) mmol/L BUN (7-17) mg/dL POC Glucose (mg/dL) (75-99) mg/dL Calcium (8.4-10.2) mg/dL Total Bilirubin (0.2-1.3) mg/dL AST (14-36) U/L ALT (4-34) U/L Alkaline Phosphatase (38-126) U/L Lactate Dehydrogenase (313-618) U/L Creatine Kinase 22 L (30-135) U/L C-Reactive Protein 144.2 H (<10.0) mg/L Total Protein (6.3-8.2) g/dL Albumin (3.5-5.0) g/dL Assessment and Plan Assessment: Acute hypoxic respiratory failure- due to COVID 19 pneumonia Increased d-dimer without evidence of PE Hyponatremia Leukocytosis Elevated and she telemetry markers Hypertension Hypothyroidism History of bilateral posterior tibial tendon repair Obesity with BMI of 35 Plan: This is a pleasant 69 years old female with Covid pneumonia and hypoxic respiratory failure. Continue with oxygen supplementation as needed, currently on airvo, with pulmonary/critical care team and follow the case closely. With her inflammatory markers. Continue with Solu-Medrol and Lovenox and zinc and vitamin C. Monitored WBC Labs and medication were reviewed.. Continue same treatment. Continue with symptomatic treatment. Resume home medication. Monitor lytes and vitals. DVT and GI prophylaxis. Further recommendationsas per clinical course of the patient DVT prophylaxis: Subcutaneous Lovenox GI Prophylaxis: Pepcid Prognosis is guarded
[2020-04-21] MEDS: SODIUM CHLORIDE 0.9% 1,000 ML IV SCH ×2 (19:14→22:10)
[2020-04-21 21:31] LABS: Glucose,Whole Blood 137 mg/dL (75-99)
[2020-04-21 22:09] LABS: Glucose,Whole Blood 148 mg/dL (75-99)
[2020-04-21] MEDS: METOPROLOL TARTRATE 5 MG/5 ML VIAL IVP SCH (22:10)
--- NOTE | 2020-04-21 23:05 | PN ---
PROGRESS NOTE DATE OF SERVICE: 04/21/2020 REASON FOR FOLLOWUP: 1. COVID-19 pneumonia. 2. New fever. INTERVAL HISTORY: The patient did spike a fever of 102 degrees Fahrenheit early this morning. The patient is hemodynamically stable, not on any pressor support. The patient remains BiPAP-dependent and remains lethargic. No vomiting, diarrhea or any other changes reported by nursing staff. PHYSICAL EXAMINATION: Blood pressure 107/70 with a pulse of 53, temperature 96.4, T-max 102. She is 90% on BiPAP. General description is a middle-aged female up in the bed in no distress. RESPIRATORY SYSTEM: Unlabored breathing. Coarse breath sounds at the bases. No wheeze. HEART: S1, S2. Regular rate and rhythm. ABDOMEN: Soft. No tenderness. LABS: Hemoglobin 15.1, white count 29.7. Ferritin is 3000. LDH is 2500. Procalcitonin is 0.07. DIAGNOSTIC IMPRESSION AND PLAN: Patient with acute respiratory failure secondary to acute COVID-19 pneumonia with concern for possible cytokine storm. Clinical suspicion is low for secondary bacterial pneumonia. Zosyn has been added; to continue while waiting for the culture to finalize. Monitor clinical course closely. MMODL / IJN: [id number] /
[2020-04-22] MEDS: methylPREDNISolone SOD SUCCI 125 MG/2 ML VIAL IV SCH ×4 (00:31→18:05)
[2020-04-22] MEDS: SODIUM CHLORIDE 0.9% 1,000 ML IV SCH ×5 (00:31→15:39)
[2020-04-22] MEDS: METOPROLOL TARTRATE 5 MG/5 ML VIAL IVP SCH ×4 (02:15→20:56)
[2020-04-22] MEDS: PIPERACILLIN-TAZOBACTAM 3.375 GM in SODIUM CHLORIDE 0.9% 100 ML IVPB SCH ×3 (02:19→18:05)
[2020-04-22 05:40] LABS: HCT 47.2 % (34.0-46.0); HGB 15.6 gm/dL (11.4-16.0); MCH 31.3 pg (25.0-35.0); MCHC 32.9 g/dL (31.0-37.0); MCV 95.1 fL (80.0-100.0); Mean Platelet Volume 7.5; Platelet Count 356 k/uL (150-450); RBC 4.97 m/uL (3.80-5.40); RDW 13.1 % (11.5-15.5); WBC 26.7 k/uL (3.8-10.6)
[2020-04-22 06:05] LABS: ALT 34 U/L (4-34); AST 50 U/L (14-36); African American GFR (CKD) >90 (>60 ml/min/1.73 sqM); Albumin 2.1 g/dL (3.5-5.0); Alkaline Phosphatase 102 U/L (38-126); Anion Gap 3 mmol/L; Blood Urea Nitrogen 30 mg/dL (7-17); Calcium 7.3 mg/dL (8.4-10.2); Carbon Dioxide 28 mmol/L (22-30); Chloride 107 mmol/L (98-107); Glucose 119 mg/dL (74-99); Non-African American GFR(CKD) >90 (>60 ml/min/1.73 sqM); Potassium 4.4 mmol/L (3.5-5.1); Sodium 138 mmol/L (137-145); Total Protein 5.2 g/dL (6.3-8.2)
[2020-04-22 06:08] LABS: Monocytes # (M) 0.27 k/uL (0-1.0); Neutrophils # (M) 25.63 k/uL (1.3-7.7); Neutrophils % (M) 96 %; Nucleated Red Blood Cells 0 /100 WBC (0-0); Total Cells Counted 100
[2020-04-22] MEDS: LEVOTHYROXINE 50 MCG TAB PO SCH (06:15)
[2020-04-22 06:21] LABS: LDH 2444 U/L (313-618)
[2020-04-22 06:25] LABS: Glucose,Whole Blood 127 mg/dL (75-99)
[2020-04-22] MEDS: INSULIN ASPART (NovoLOG) 100 UNIT/ML VIAL SQ SCH ×4 (06:30→20:57)
[2020-04-22 07:06] LABS: Glucose,Whole Blood 108 mg/dL (75-99)
--- NOTE | 2020-04-22 07:06 | XR ---
EXAMINATION TYPE: XR chest 1V portable DATE OF EXAM: 04/22/2020 CLINICAL HISTORY: Difficulty breathing progress study. TECHNIQUE: Single AP portable upright view of the chest is obtained. COMPARISON: Chest x-ray from one day earlier and older studies. FINDINGS: Cardiac silhouette size stable and within normal limits with atherosclerotic thoracic aort a. Increased reticulonodular opacities bilaterally redemonstrated with relative sparing of the apices . Some organizing consolidation in the lung bases again seen. Osseous structures are intact. IMPRESSION: Bilateral multifocal reticulonodular infiltrates mid to lower lung with basilar organizin g consolidations, findings consistent with covid19 infection. No significant change from one day ashley ier.
[2020-04-22] MEDS: ALBUTEROL HFA INHALER INHALATION SCH ×3 (07:49→19:18)
[2020-04-22] MEDS: ENOXAPARIN 60 MG/0.6 ML SYRINGE SQ SCH ×2 (08:38→20:56)
[2020-04-22] MEDS: FAMOTIDINE 20 MG/2 ML VIAL IV SCH ×2 (08:40→20:57)
[2020-04-22] MEDS: CHOLECALCIFEROL 1,000 UNIT TAB PO SCH (08:43)
[2020-04-22] MEDS: ZINC SULFATE 220 MG CAP PO SCH (08:43)
[2020-04-22] MEDS: ASCORBIC ACID 500 MG TAB PO SCH (08:43)
[2020-04-22] MEDS: LOSARTAN-HCTZ 50-12.5 MG 1 EACH TAB PO SCH (08:44)
[2020-04-22 09:46] LABS: Amorphous Sediment,Urine Rare /hpf; Appearance,Urine Cloudy (Clear); Bilirubin,Urine Negative (Negative); Blood,Urine Trace (Negative); Budding Yeast,Urine Occasional /hpf; Color,Urine Yellow; Glucose,Urine (UA) Negative (Negative); Ketones,Urine 1+ (Negative); Leukocyte Esterase,Urine Small (Negative); Mucus,Urine Rare /hpf; Nitrite,Urine Negative (Negative); PH, Urine 5.5 (5.0-8.0); Protein,Urine Trace (Negative); RBC,Urine 13 /hpf (0-5); Specific Gravity,Urine 1.035 (1.001-1.035); Urobilinogen,Urine <2.0 mg/dL (<2.0); WBC,Urine 10 /hpf (0-5)
--- NOTE | 2020-04-22 10:23 | P.PN ---
Subjective Progress Note Date: 04/22/20 Principal diagnosis: COVID 19 pneumonia This 69-year-old white female patient who was admitted to the hospital on 04/11/2020 when she came in for evaluation of 1 week history of cough, fever, shortness of breath, decreased appetite and intermittent episodes of diarrhea. Patient was diagnosed with COVID 19 pneumonia, this was done via outpatient testing through the health Department. Patient initially presented for [facility], she was hypoxemic with a pulse ox in the 80s and she was placed on high flow oxygen and transferred to the [facility]. CT a ngiogram of the chest showed no evidence of pulmonary embolism, however it showed evidence of bilateral interstitial infiltrates consistent with COVID 19 pneumonitis. Patient completed her Remdesivir treatment on 04/16/2020, she received 2 units of convalescent plasma, she remains on IV steroids with IV Solu-Medrol 40 mg every 12 hours. She is on point and was seen at a rate of 75 ML per hour. In view of her worsening hypoxemia patient was transferred to the intensive care unit, she is currently on BiPAP support with pressures of 14/6, and FiO2 of 100%, patient has been pretty much BiPAP dependent, her pulse ox is 82-84%, this morning patient had episode of SVT with a heart rate up to 250, patient has been afebrile, T-max in last 24 hours was 102.2F. Today's chest x- ray still shows interstitial infiltrates in the mid and lower lungs that are becoming more confluent in the left base. His labs have been reviewed, showing white blood cell, 29.7, hemoglobin of 16.9, lymphocyte count is 1.1, and neutrophil count is 27, fibrinogen level is 963, her last d-dimer was yesterday at 3.01, sodium is 134, the rest a large joints were unremarkable, B1 is 23 creatinine 0.73, total bilirubin is 1.5, her liver enzymes have worsened, AST 70, ALT is 56, alk phos is 135, LDH is 2500, CRP is 144, patient's interleukin-6 level was significantly elevated at 57.1. Patient remains on Lovenox 60 mg twice daily. On 04/22/2020 patient seen in follow-up in intensive care unit, she is resting in bed, she was on BiPAP support with pressures of 16 and 8 and FiO2 of 100%, and she was switched to Airvo this morning a little while ago, with oxygen for 60 L/m and FiO2 of 95%, however patient quickly started desaturating, she is becoming obviously cyanotic, and short of breath. She will be placed back on BiPAP support, she remains BiPAP support dependent for the most part. She is currently on 0.9 normal saline at a rate of 50 ML per hour. She has not been able to take much in the way of oral nutrition related to her severe hypoxemia, and BiPAP dependence. Patient is awake and alert, oriented 3, she is answering questions appropriately, slightly tachypneic, but appears to be in no acute distress, she has been on bedrest for the most part. No cough, no chest pain, no palpitations. She has been afebrile. Yesterday we started her on Zosyn for empiric antibiotic coverage, however her pro-calcitonin came back negative at 0.07, however today's pro-calcitonin came back at 0.39. Nursing staff stated that patient's urine has been quite cloudy and turbid-looking, urinalysis revealed trace protein, large urine, 1+ ketones, small amount of leuks, white blood cells, and occasional yeast. No nausea or vomiting. Today's chest x-ray showing bilateral multifocal reticulonodular infiltrates mid to lower lung with basilar organizing consolidations, findings consistent with Coumadin continued infection, no change from one day earlier. Blood cultures have been negative, patient has had no fever. Nursing staff confirmed CODE STATUS with the patient and patient was to continue to be full code at this time. We will update her nephew who is a retired physician and the patient's condition per patient's request. Objective - Vital Signs Vital signs: Vital Signs Temp 98.7 F 04/22/20 08:00 Pulse 84 04/22/20 09:00 Resp 9 L 04/22/20 09:00 BP 146/83 04/22/20 09:00 Pulse Ox 87 L 04/22/20 09:00 Intake & Output 04/21/20 04/22/20 04/22/20 18:59 06:59 18:59 Intake Total 825 1825 300 Output Total 390 435 175 Balance 435 1390 125 Weight 93.8 kg Intake: IV 825 1825 300 Sodium Chloride 0.9% 1, 825 1825 300 000 ml @ 150 mls/hr IV . Q6H40M [facility] Rx#:[id number] Output: Urine 390 435 175 Other: Voiding Method Indwelling Catheter Indwelling Catheter - Exam GENERAL EXAM: Alert, very pleasant, 61-year-old obese white female on BiPAP support, with pressures of 16/8, and FiO2 of 100%, her pulse ox is 87-91%, comfortable in no apparent distress. HEAD: Normocephalic/atraumatic. EYES: Normal reaction of pupils, equal size. Conjunctiva pink, sclera white. NOSE: Clear with pink turbinates. THROAT: No erythema or exudates. NECK: No masses, no JVD, no thyroid enlargement, no adenopathy. CHEST: No chest wall deformity. Symmetrical expansion. LUNGS: Equal air entry with no crackles, wheeze, rhonchi or dullness. CVS: Regular rate and rhythm, normal S1 and S2, no gallops, no murmurs, no rubs ABDOMEN: Soft, nontender. No hepatosplenomegaly, normal bowel sounds, no guarding or rigidity. EXTREMITIES: No clubbing, no edema, no cyanosis, 2+ pulses and upper and lower extremities. MUSCULOSKELETAL: Muscle strength and tone normal. SPINE: No scoliosis or deformity SKIN: No rashes CENTRAL NERVOUS SYSTEM: Alert and oriented -3. No focal deficits, tone is normal in all 4 extremities. PSYCHIATRIC: Alert and oriented -3. Appropriate affect. Intact judgment and insight. - Labs CBC & Chem 7: 04/22/20 05:25 04/22/20 05:25 Labs: Abnormal Lab Results - Last 24 Hours (Table) 04/21/20 04/21/20 04/21/20 Range/Units 03:59 16:35 21:29 WBC (3.8-10.6) k/uL Hct (34.0-46.0) % Neutrophils # (Manual) (1.3-7.7) k/uL Lymphocytes # (Manual) (1.0-4.8) k/uL BUN (7-17) mg/dL Glucose (74-99) mg/dL POC Glucose (mg/dL) 123 H 137 H (75-99) mg/dL Calcium (8.4-10.2) mg/dL Ferritin 3000.6 H (10.0-291.0) ng/mL AST (14-36) U/L Lactate Dehydrogenase (313-618) U/L Total Protein (6.3-8.2) g/dL Albumin (3.5-5.0) g/dL Procalcitonin (0.02-0.09) ng/mL Urine Appearance (Clear) Urine Protein (Negative) Urine Ketones (Negative) Urine Blood (Negative) Ur Leukocyte Esterase (Negative) Urine RBC (0-5) /hpf Urine WBC (0-5) /hpf Amorphous Sediment (None) /hpf Urine Mucus (None) /hpf Urine Yeast (Budding) (None) /hpf 04/21/20 04/22/20 04/22/20 Range/Units 22:08 05:25 05:25 WBC 26.7 H (3.8-10.6) k/uL Hct 47.2 H (34.0-46.0) % Neutrophils # (Manual) 25.63 H (1.3-7.7) k/uL Lymphocytes # (Manual) 0.80 L (1.0-4.8) k/uL BUN (7-17) mg/dL Glucose (74-99) mg/dL POC Glucose (mg/dL) 148 H (75-99) mg/dL Calcium (8.4-10.2) mg/dL Ferritin (10.0-291.0) ng/mL AST (14-36) U/L Lactate Dehydrogenase (313-618) U/L Total Protein (6.3-8.2) g/dL Albumin (3.5-5.0) g/dL Procalcitonin 0.39 H (0.02-0.09) ng/mL Urine Appearance (Clear) Urine Protein (Negative) Urine Ketones (Negative) Urine Blood (Negative) Ur Leukocyte Esterase (Negative) Urine RBC (0-5) /hpf Urine WBC (0-5) /hpf Amorphous Sediment (None) /hpf Urine Mucus (None) /hpf Urine Yeast (Budding) (None) /hpf 04/22/20 04/22/20 04/22/20 Range/Units 05:25 06:23 07:04 WBC (3.8-10.6) k/uL Hct (34.0-46.0) % Neutrophils # (Manual) (1.3-7.7) k/uL Lymphocytes # (Manual) (1.0-4.8) k/uL BUN 30 H (7-17) mg/dL Glucose 119 H (74-99) mg/dL POC Glucose (mg/dL) 127 H 108 H (75-99) mg/dL Calcium 7.3 L (8.4-10.2) mg/dL Ferritin (10.0-291.0) ng/mL AST 50 H (14-36) U/L Lactate Dehydrogenase 2444 H (313-618) U/L Total Protein 5.2 L (6.3-8.2) g/dL Albumin 2.1 L (3.5-5.0) g/dL Procalcitonin (0.02-0.09) ng/mL Urine Appearance (Clear) Urine Protein (Negative) Urine Ketones (Negative) Urine Blood (Negative) Ur Leukocyte Esterase (Negative) Urine RBC (0-5) /hpf Urine WBC (0-5) /hpf Amorphous Sediment (None) /hpf Urine Mucus (None) /hpf Urine Yeast (Budding) (None) /hpf 04/22/20 Range/Units 09:00 WBC (3.8-10.6) k/uL Hct (34.0-46.0) % Neutrophils # (Manual) (1.3-7.7) k/uL Lymphocytes # (Manual) (1.0-4.8) k/uL BUN (7-17) mg/dL Glucose (74-99) mg/dL POC Glucose (mg/dL) (75-99) mg/dL Calcium (8.4-10.2) mg/dL Ferritin (10.0-291.0) ng/mL AST (14-36) U/L Lactate Dehydrogenase (313-618) U/L Total Protein (6.3-8.2) g/dL Albumin (3.5-5.0) g/dL Procalcitonin (0.02-0.09) ng/mL Urine Appearance Cloudy H (Clear) Urine Protein Trace H (Negative) Urine Ketones 1+ H (Negative) Urine Blood Trace H (Negative) Ur Leukocyte Esterase Small H (Negative) Urine RBC 13 H (0-5) /hpf Urine WBC 10 H (0-5) /hpf Amorphous Sediment Rare H (None) /hpf Urine Mucus Rare H (None) /hpf Urine Yeast (Budding) Occasional H (None) /hpf Assessment and Plan Plan: Assessment: #1. COVID 19 pneumonia/pneumonitis, with acute hypoxemic respiratory failure, currently on BiPAP or AIRVO. Complete a course of Remdesivir on the 04/16/2020, received 2 units of convalescent plasma patient remains on IV steroids and anticoagulation the form of Lovenox #2. History of previous hysterectomy. #3. Remote history of tobacco use. #4. Obesity #5. Elevated d-dimer, without evidence of pulmonary embolism. #6. Leukocytosis, possibly related to IV steroids, rule out possibility of a bacterial superinfection #7. Elevated liver enzymes likely related to viral pneumonia #8. Elevated inflammatory markers related to acute COVID 19 pneumonia #9. Tachycardia, episode of SVT, related to fever, and severe hypoxemia, improved, metoprolol was added, cardiology is following #10. Possible urinary tract infection, urine cultures pending patient is empirically covered with Zosyn Plan: We'll consult interventional radiology for placement of PICC line, we discussed TPN initiation with the patient however she wants to hold off on it, she will try to increase oral intake. However at this time she remains very much BiPAP dependent and she failed a Airvo trial this morning. We'll send a urine culture, continue with Zosyn. We will obtain follow-up inflammatory markers, a stat d-dimer. Patient requested for us to call her nephew who is a retired physician to update him. We'll continue supportively treating the patient, may adjust dose of Lovenox once d-dimer is back. Continue steroids, continue vitamins. Prognosis is guarded. I performed a history & physical examination of the patient and discussed their management with my nurse practitioner, Jeanna Hawkins. I reviewed the nurse practitioner's note and agree with the documented findings and plan of care. Lung sounds are positive for bilateral crackles. The findings and the impression was discussed with the patient. I attest to the documentation by the nurse practitioner. Time with Patient: Greater than 30
[2020-04-22] MEDS: LORazepam 2 MG/ML INJ IV PRN ×2 (10:41→21:38)
[2020-04-22 12:07] LABS: Glucose,Whole Blood 193 mg/dL (75-99)
[2020-04-22] MEDS ORDERED: LIDOCAINE 1% INJ 10MG/ML (20 ML MDV) SQ ONE (14:39)
--- NOTE | 2020-04-22 15:15 | IR ---
PICC LINE PLACEMENT: HISTORY: Infection TPN PROCEDURE: Ultrasound guidance of PICC line placement. ORDNANCE ARTIFICER HELPER: Dr. Reyes. COMPLICATIONS: None ANESTHESIA: 1. 1% Lidocaine locally. FINDINGS/TECHNIQUE: The procedure was explained to the patient. The risks, complications, benefits and alternatives were discussed and any questions were answered. Informed consent was obtained. The patient was placed supine on the fluoroscopic table and prepped and draped in the usual sterile fash ion. Utilizing a 21 gauge needle and sonographic guidance, access in the right basilic vein was ach ieved and there is placement of a 0.018 guidewire. The vein is patent. A 5-F. sheath was placed ove r the guidewire. The guidewire and dilator were removed and a 5-F. Double lumen PICC line was placed through the sheath with the chest x-ray confirming the tip at the level of the SVC. The sheath was removed, the catheter was flushed and sutured into position. The patient was stable throughout the p rocedure and remained stable upon discharge from the Department of Radiology. The vein puncture was patent under ultrasound. A barros scale image was obtained to document patency of the vein punctured. All elements of the maximal barrier technique were utilized. IMPRESSION: 1. Successful PICC line placement under ultrasound performed bedside within the ICU.
--- NOTE | 2020-04-22 15:23 | XR ---
EXAMINATION TYPE: XR chest 1V portable DATE OF EXAM: 04/22/2020 Comparison: 04/22/2020 Clinical History: 69-year-old female PICC LINE Findings: Left PICC tip in the expected region of the brachiocephalic vein confluence just to the right of midl ine. Hardware alignment in size. Diffuse interstitial opacities. Worsening airspace opacity at the le ft lower lung. Impression: 1. Left PICC tip just to the right of midline near the expected brachiocephalic vein confluence. 2. Diffuse interstitial opacities and worsening airspace disease in the left lower lung. Consider int erstitial pulmonary edema.
[2020-04-22 15:31] LABS: Magnesium 2.4 mg/dL (1.6-2.3); Phosphorus 2.6 mg/dL (2.5-4.5)
[2020-04-22] MEDS: FOLIC ACID 1 MG TAB PO SCH (15:37)
[2020-04-22] MEDS: MULTIVITAMINS, THERA 1 EACH TAB PO SCH (15:37)
[2020-04-22] MEDS: THIAMINE 100 MG TAB PO SCH (15:38)
[2020-04-22] MEDS ORDERED: MVI, ADULT NO.4 WITH VIT K 10 ML, TRACE (CONC-1ML/DOSE) 1 ML in AMINO ACID 5%-D20W+LYTE... IV ONE ×3 (16:00)
[2020-04-22] MEDS: FAT EMULSION 20% 250 ML IV SCH (16:05)
[2020-04-22 17:47] LABS: Glucose,Whole Blood 157 mg/dL (75-99)
--- NOTE | 2020-04-22 18:59 | PN ---
PROGRESS NOTE DATE OF SERVICE: 04/22/2020 REASON FOR FOLLOWUP: 1. Acute COVID-19 pneumonia. 2. New fever. INTERVAL HISTORY: The patient has been afebrile today. The patient is BiPAP-dependent, though breathing comfortably. Denies having any chest pain. Cough but no sputum. No abdominal pain. No diarrhea. PHYSICAL EXAMINATION: Blood pressure is 133/90 with a pulse of 66, temperature 98. She is 93% on 100% BiPAP. General description is an elderly female lying in bed in no distress. RESPIRATORY SYSTEM: Unlabored breathing. Decreased intensity of breath sounds. No wheeze. HEART: S1, S2. Regular rate and rhythm. ABDOMEN: Soft. No tenderness. LABS: BUN of 30, creatinine 0.60. LDH is 2444. DIAGNOSTIC IMPRESSION AND PLAN: Patient with acute respiratory failure which is multifactorial in this patient who did have a component of acute COVID-19 pneumonia. Patient has completed her remdesivir therapy and is currently on Lovenox, Solu-Medrol, zinc with TPN started. Empiric antibiotic for new fever. Culture has been repeated and will be followed. Continue supportive care. MMODL / IJN: [id number] / MTDD
--- NOTE | 2020-04-22 20:05 | P.PN ---
Subjective Ms. Mccoy is a 69-year-old female with a past medical history of hypertension and thyroid disorder admitted to the hospital for acute hypoxic respiratory failure secondary to COVID 19 pneumonia. Patient has extensive bilateral interstitial pneumonia. She is on a low and pulmonary Dr. Mathews is following the patient. Patient received a convalescent plasma, is also on Remdesivir. On 04/17/2020- This morning patient was evaluated in the ICU. Patient is comfortably sitting in a chair states that her breathing is improving gradually. She denies having any chest pain or palpitations. No cough or hemoptysis. She denies having any swelling or for lower extremities. No abdominal pain nausea vomiting or diarrhea. She denies having any dysuria or hematuria, she has a Bryan's catheter in place. On reviewing her vitals temperature 98.1 heart rate 75 is 5817, blood pressure 1:30 bradycardia. Saturating at 96% on a Aervo -60%. On 04/18/2020 - patient was seen and examined in the ICU. Patient is sitting in a chair by the bedside, states that her breathing has worsened compared to yesterday. Patient is on high flow Airvo, saturating in the low 90s. She denies having any chest pain or palpitations. She complains of cough that is nonproductive. Patient had a chest x-ray done showing stable bilateral air space disease. As the patient was having few episodes of tachycardia, she was started on Lopressor this morning. Patient's inflammatory markers are noted to be high. On reviewing her vitals saturating at 90% on high flow Airvo, heart rate 70s to 80s, respiratory rate 20-25, blood pressure 106-67. In reviewing her labs white count of 29.3, hemoglobin 16.8, platelets 369. D-dimer 6.99, LDH 2969, CRP 63.9. On 04/19/2020 - patient is seen and examined in the ICU. She is currently on BiPAP, as her respiratory status has worsened compared to yesterday. Patient denies having any chest pain or palpitations. No abdominal pain nausea vomiting or diarrhea. No dysuria or hematuria. She is on BiPAP 14/6 and 100% FiO2. On reviewing her vitals temperature is 99.2, respiratory rate is 25, heart rate 70, blood pressure 10 9 x 71. Reviewing the labs white count of 27.3, hemoglobin 17.4, platelets 314. Sodium 133, potassium 4.4, chloride 90, bicarbonate 35, BUN 31, creatinine 0.72. Ferritin 3195, CRP 217 and LDH 2747. 04/20/2020 This is a pleasant 69 years old female with multiple medical problems was adm itted for bilateral Covid pneumonia, she is currently on aervo at 90%/60 L of oxygen, saturating 89%. Rest of Vitas looks stable Also she is on BiPAP All the night. She is able to eat and drink, no pressors She is on normal saline at 75 mL/h with adequate urine output Patient is currently ON Medrol 40 mg twice daily, Lovenox 60 mg twice Mary and vitamin C and zinc. She finished her remdisvir and convelecent plasma. 04/21/2020 Patient remains in the ICU bed and respiratory support for her bilateral Covid pneumonia. She still dyspneic especially with exertion and she still needs BiPAP during the day shift. Also she had a fever today of 102.2. Patient is empirically on Zosyn/calcitonin check today showing normal level at 0.07. She has leukocytosis of 29K. I agree with Zosyn and I recommended to continue with that for now. Also patient is on steroids 60 mg every 6 hours. As there is no more significant progress progress in her clinical picture Glucose is 123 and inflammatory markers still elevated 04/22/2020 this is a pleasant 69 yo F who is admitted to the ICU for covid pneumonia, she is still on BiPAP dependant , TNP is started for her nutrition for this reasone. her oxygen saturation is on low 90s% cxr: diffuse interstitial opacities and worsening airspace disease in the left lower lung. consider interstitial edema wbc is sligtly less 26K, she is currently continued on zosyn , and solumedrol 60 mg. and normal saline increased to 150 ml/hr. and lovenox 60 mg BID she finised her Remdisvir and convelescent Plasma. Objective - Vital Signs Vital signs: Vital Signs Temp 98.7 F 04/22/20 08:00 Pulse 89 04/22/20 11:00 Resp 16 04/22/20 11:00 BP 154/95 04/22/20 11:00 Pulse Ox 95 04/22/20 11:00 Intake & Output 0104/22/20 04/22/20 18:59 06:59 18:59 Intake Total 825 1825 300 Output Total 390 435 175 Balance 435 1390 125 Weight 93.8 kg Intake: IV 825 1825 300 Sodium Chloride 0.9% 1, 825 1825 300 000 ml @ 150 mls/hr IV . Q6H40M [facility] Rx#:[id number] Output: Urine 390 435 175 Other: Voiding Method Indwelling Catheter Indwelling Catheter Indwelling Catheter - Exam -GENERAL: The patient is alert and oriented x3, generally weak , on BiPAP HEENT: Pupils are round and equally reacting to light. EOMI. No scleral icterus. No conjunctival pallor. Normocephalic, atraumatic. No pharyngeal erythema. No thyromegaly. CARDIOVASCULAR: S1 and S2 present. No murmurs, rubs, or gallops. -PULMONARY: Chest is clear to auscultation, bilateral crepitation ABDOMEN: Soft, nontender, nondistended, normoactive bowel sounds. No palpable organomegaly. MUSCULOSKELETAL: No joint swelling or deformity. EXTREMITIES: No cyanosis, clubbing, or pedal edema. NEUROLOGICAL: Gross neurological examination did not reveal any focal deficits. SKIN: No rashes. no petechiae. - Labs CBC & Chem 7: 04/22/20 05:25 04/22/20 05:25 Labs: Abnormal Lab Results - Last 24 Hours (Table) 04/21/20 04/21/20 04/21/20 Range/Units 16:35 21:29 22:08 WBC (3.8-10.6) k/uL Hct (34.0-46.0) % Neutrophils # (Manual) (1.3-7.7) k/uL Lymphocytes # (Manual) (1.0-4.8) k/uL BUN (7-17) mg/dL Glucose (74-99) mg/dL POC Glucose (mg/dL) 123 H 137 H 148 H (75-99) mg/dL Calcium (8.4-10.2) mg/dL AST (14-36) U/L Lactate Dehydrogenase (313-618) U/L Total Protein (6.3-8.2) g/dL Albumin (3.5-5.0) g/dL Procalcitonin (0.02-0.09) ng/mL Urine Appearance (Clear) Urine Protein (Negative) Urine Ketones (Negative) Urine Blood (Negative) Ur Leukocyte Esterase (Negative) Urine RBC (0-5) /hpf Urine WBC (0-5) /hpf Amorphous Sediment (None) /hpf Urine Mucus (None) /hpf Urine Yeast (Budding) (None) /hpf 04/22/20 04/22/20 04/22/20 Range/Units 05:25 05:25 05:25 WBC 26.7 H (3.8-10.6) k/uL Hct 47.2 H (34.0-46.0) % Neutrophils # (Manual) 25.63 H (1.3-7.7) k/uL Lymphocytes # (Manual) 0.80 L (1.0-4.8) k/uL BUN 30 H (7-17) mg/dL Glucose 119 H (74-99) mg/dL POC Glucose (mg/dL) (75-99) mg/dL Calcium 7.3 L (8.4-10.2) mg/dL AST 50 H (14-36) U/L Lactate Dehydrogenase 2444 H (313-618) U/L Total Protein 5.2 L (6.3-8.2) g/dL Albumin 2.1 L (3.5-5.0) g/dL Procalcitonin 0.39 H (0.02-0.09) ng/mL Urine Appearance (Clear) Urine Protein (Negative) Urine Ketones (Negative) Urine Blood (Negative) Ur Leukocyte Esterase (Negative) Urine RBC (0-5) /hpf Urine WBC (0-5) /hpf Amorphous Sediment (None) /hpf Urine Mucus (None) /hpf Urine Yeast (Budding) (None) /hpf 04/22/20 04/22/20 04/22/20 Range/Units 06:23 07:04 09:00 WBC (3.8-10.6) k/uL Hct (34.0-46.0) % Neutrophils # (Manual) (1.3-7.7) k/uL Lymphocytes # (Manual) (1.0-4.8) k/uL BUN (7-17) mg/dL Glucose (74-99) mg/dL POC Glucose (mg/dL) 127 H 108 H (75-99) mg/dL Calcium (8.4-10.2) mg/dL AST (14-36) U/L Lactate Dehydrogenase (313-618) U/L Total Protein (6.3-8.2) g/dL Albumin (3.5-5.0) g/dL Procalcitonin (0.02-0.09) ng/mL Urine Appearance Cloudy H (Clear) Urine Protein Trace H (Negative) Urine Ketones 1+ H (Negative) Urine Blood Trace H (Negative) Ur Leukocyte Esterase Small H (Negative) Urine RBC 13 H (0-5) /hpf Urine WBC 10 H (0-5) /hpf Amorphous Sediment Rare H (None) /hpf Urine Mucus Rare H (None) /hpf Urine Yeast (Budding) Occasional H (None) /hpf Assessment and Plan Assessment: Acute hypoxic respiratory failure- due to COVID 19 pneumonia Increased d-dimer without evidence of PE Hyponatremia Leukocytosis Elevated and she telemetry markers Hypertension Hypothyroidism History of bilateral posterior tibial tendon repair Obesity with BMI of 35 Plan: This is a pleasant 69 years old female with Covid pneumonia and hypoxic respiratory failure. Continue with oxygen supplementation as needed, currently on airvo, with pulmonary/critical care team and follow the case closely. With her inflammatory markers. Continue with Solu-Medrol and Lovenox and zinc and vitamin C. Monitored WBC Labs and medication were reviewed.. Continue same treatment. Continue with symptomatic treatment. Resume home medication. Monitor lytes and vitals. DVT and GI prophylaxis. Further recommendationsas per clinical course of the patient DVT prophylaxis: Subcutaneous Lovenox GI Prophylaxis: Pepcid Prognosis is guarded
[2020-04-22 20:27] LABS: Glucose,Whole Blood 168 mg/dL (75-99)
[2020-04-23] MEDS: SODIUM CHLORIDE 0.9% 1,000 ML IV SCH ×4 (00:13→20:32)
[2020-04-23] MEDS: methylPREDNISolone SOD SUCCI 125 MG/2 ML VIAL IV SCH ×4 (00:15→17:13)
[2020-04-23] MEDS: PIPERACILLIN-TAZOBACTAM 3.375 GM in SODIUM CHLORIDE 0.9% 100 ML IVPB SCH ×3 (03:05→17:14)
[2020-04-23] MEDS: METOPROLOL TARTRATE 5 MG/5 ML VIAL IVP SCH ×4 (04:07→21:24)
[2020-04-23] MEDS: LORazepam 2 MG/ML INJ IV PRN (05:07)
[2020-04-23 05:34] LABS: Basophils # (A) 0.2 k/uL (0-0.2); Basophils % (A) 1 %; Eosinophils % (A) 0 %; HCT 47.6 % (34.0-46.0); HGB 15.4 gm/dL (11.4-16.0); Lymphocytes # (A) 0.3 k/uL (1.0-4.8); Lymphocytes % (A) 1 %; MCH 31.2 pg (25.0-35.0); MCHC 32.3 g/dL (31.0-37.0); MCV 96.5 fL (80.0-100.0); Mean Platelet Volume 8.3; Monocytes # (A) 1.3 k/uL (0-1.0); Monocytes % (A) 4 %; Neutrophils % (A) 94 %; Platelet Count 352 k/uL (150-450); RBC 4.93 m/uL (3.80-5.40); RDW 13.1 % (11.5-15.5)
[2020-04-23 05:35] LABS: Ionized Calcium 4.7 mg/dL (4.5-5.3)
[2020-04-23 05:37] LABS: Neutrophils # (A) 28.2 k/uL (1.3-7.7)
[2020-04-23 05:46] LABS: ALT 31 U/L (4-34); African American GFR (CKD) >90 (>60 ml/min/1.73 sqM); Albumin 2.3 g/dL (3.5-5.0); Anion Gap 4 mmol/L; Calcium 7.7 mg/dL (8.4-10.2); Carbon Dioxide 25 mmol/L (22-30); Chloride 108 mmol/L (98-107); Glucose 195 mg/dL (74-99); Non-African American GFR(CKD) >90 (>60 ml/min/1.73 sqM); Sodium 137 mmol/L (137-145); Total Protein 5.6 g/dL (6.3-8.2); Triglycerides 211 mg/dL (<150)
[2020-04-23 05:48] LABS: D-Dimer 5.63 mg/L FEU (<0.60)
[2020-04-23 05:51] LABS: AST 51 U/L (14-36); Blood Urea Nitrogen 22 mg/dL (7-17); Magnesium 2.4 mg/dL (1.6-2.3); Potassium 4.2 mmol/L (3.5-5.1)
[2020-04-23 05:52] LABS: Alkaline Phosphatase 113 U/L (38-126)
[2020-04-23 06:01] LABS: Glucose,Whole Blood 184 mg/dL (75-99)
[2020-04-23 06:19] LABS: C Reactive Protein 163.9 mg/L (<10.0)
[2020-04-23] MEDS: INSULIN ASPART (NovoLOG) 100 UNIT/ML VIAL SQ SCH ×4 (06:48→21:26)
[2020-04-23] MEDS: LEVOTHYROXINE 50 MCG TAB PO SCH (06:59)
--- NOTE | 2020-04-23 08:02 | XR ---
EXAMINATION TYPE: XR chest 1V portable DATE OF EXAM: 04/23/2020 Comparison: 04/22/2020 Clinical History: 69-year-old female COVID Findings: Heart normal size. Left PICC tip just to the right of midline probably in the lower left brachiocepha lic vein or near the brachiocephalic vein confluence. Fine interstitial opacities persist in the mid and lower lungs. The previous left lower lung airspace disease shows some improvement. No pleural eff usion. Impression: Fine interstitial infiltrates primarily in the mid and lower lungs persist. Slight improving aeration at the left lower lung.
[2020-04-23] MEDS: ALBUTEROL HFA INHALER INHALATION SCH ×3 (08:14→19:12)
[2020-04-23] MEDS: FAMOTIDINE 20 MG/2 ML VIAL IV SCH ×2 (08:24→21:27)
[2020-04-23] MEDS: ENOXAPARIN 60 MG/0.6 ML SYRINGE SQ SCH ×2 (08:24→21:25)
[2020-04-23] MEDS: ASCORBIC ACID 500 MG TAB PO SCH (08:24)
[2020-04-23] MEDS: CHOLECALCIFEROL 1,000 UNIT TAB PO SCH (08:24)
[2020-04-23] MEDS: LOSARTAN-HCTZ 50-12.5 MG 1 EACH TAB PO SCH (08:24)
[2020-04-23] MEDS: ZINC SULFATE 220 MG CAP PO SCH (08:25)
[2020-04-23] MEDS ORDERED: FUROSEMIDE 10 MG/ML 4 ML VIAL IV STA (08:31)
[2020-04-23] MEDS: FLUCONAZOLE IN NACL,ISO-OSM 100 MG in SALINE 1 50ML.BAG IVPB SCH (09:39)
--- NOTE | 2020-04-23 10:21 | P.PN ---
Subjective Progress Note Date: 04/23/20 Principal diagnosis: COVID 19 pneumonia This 69-year-old white female patient who was admitted to the hospital on 04/11/2020 when she came in for evaluation of 1 week history of cough, fever, shortness of breath, decreased appetite and intermittent episodes of diarrhea. Patient was diagnosed with COVID 19 pneumonia, this was done via outpatient testing through the health Department. Patient initially presented for [facility], she was hypoxemic with a pulse ox in the 80s and she was placed on high flow oxygen and transferred to the [facility]. CT a ngiogram of the chest showed no evidence of pulmonary embolism, however it showed evidence of bilateral interstitial infiltrates consistent with COVID 19 pneumonitis. Patient completed her Remdesivir treatment on 04/16/2020, she received 2 units of convalescent plasma, she remains on IV steroids with IV Solu-Medrol 40 mg every 12 hours. She is on point and was seen at a rate of 75 ML per hour. In view of her worsening hypoxemia patient was transferred to the intensive care unit, she is currently on BiPAP support with pressures of 14/6, and FiO2 of 100%, patient has been pretty much BiPAP dependent, her pulse ox is 82-84%, this morning patient had episode of SVT with a heart rate up to 250, patient has been afebrile, T-max in last 24 hours was 102.2F. Today's chest x- ray still shows interstitial infiltrates in the mid and lower lungs that are becoming more confluent in the left base. His labs have been reviewed, showing white blood cell, 29.7, hemoglobin of 16.9, lymphocyte count is 1.1, and neutrophil count is 27, fibrinogen level is 963, her last d-dimer was yesterday at 3.01, sodium is 134, the rest a large joints were unremarkable, B1 is 23 creatinine 0.73, total bilirubin is 1.5, her liver enzymes have worsened, AST 70, ALT is 56, alk phos is 135, LDH is 2500, CRP is 144, patient's interleukin-6 level was significantly elevated at 57.1. Patient remains on Lovenox 60 mg twice daily. On 04/22/2020 patient seen in follow-up in intensive care unit, she is resting in bed, she was on BiPAP support with pressures of 16 and 8 and FiO2 of 100%, and she was switched to Airvo this morning a little while ago, with oxygen for 60 L/m and FiO2 of 95%, however patient quickly started desaturating, she is becoming obviously cyanotic, and short of breath. She will be placed back on BiPAP support, she remains BiPAP support dependent for the most part. She is currently on 0.9 normal saline at a rate of 50 ML per hour. She has not been able to take much in the way of oral nutrition related to her severe hypoxemia, and BiPAP dependence. Patient is awake and alert, oriented 3, she is answering questions appropriately, slightly tachypneic, but appears to be in no acute distress, she has been on bedrest for the most part. No cough, no chest pain, no palpitations. She has been afebrile. Yesterday we started her on Zosyn for empiric antibiotic coverage, however her pro-calcitonin came back negative at 0.07, however today's pro-calcitonin came back at 0.39. Nursing staff stated that patient's urine has been quite cloudy and turbid-looking, urinalysis revealed trace protein, large urine, 1+ ketones, small amount of leuks, white blood cells, and occasional yeast. No nausea or vomiting. Today's chest x-ray showing bilateral multifocal reticulonodular infiltrates mid to lower lung with basilar organizing consolidations, findings consistent with Coumadin continued infection, no change from one day earlier. Blood cultures have been negative, patient has had no fever. Nursing staff confirmed CODE STATUS with the patient and patient was to continue to be full code at this time. We will update her nephew who is a retired physician and the patient's condition per patient's request. On 04/23/2020 patient seen in follow-up in intensive care unit, she is currently back on BiPAP, pressures of 16/8, and FiO2 of the 100%, her pulse ox is 93%, she is currently on 0.9 normal saline at a rate of 1:15 per hour, yesterday we initiate patient on TPN for nutritional support which is currently running at 38 with a goal of increasing it today to 60 mL per hour, and lipids 12 hours on 12 hours off. Patient has been afebrile, hemodynamically she has been stable, in sinus mechanism, appears to be in no acute distress, but does experience episodes of restlessness, and anxiety related to severe hypoxemia. She has been given Ativan, however patient can be switched back to her home dose of Xanax on as needed basis and we will add some morphine for shortness of breath, anxiety and breathlessness. Today's chest x-ray has been reviewed showing fine interst itial infiltrates primarily in the mid and lower lungs, slight improvement in aeration at the left lower lung, yesterday we started the patient on Zosyn for possibility of a bacterial infection possibly in the urine, urine culture still pending, there is a possibility of yeast in the urine cultures, and we will add IV Diflucan in the meantime as well. His labs have been reviewed, showing trending leukocytosis, white blood cell count up to 70, hemoglobin is 15.4, fibrinogen level down slightly to 866, d-dimer is trending back up to 5.63 on today's labs, sodium is 137, potassium 4.2, chloride is 108, BUN is 22, creatinine 0.50, LDH is pending, CRP is still significantly elevated is 163.9. Objective - Vital Signs Vital signs: Vital Signs Temp 98.1 F 04/23/20 08:00 Pulse 73 04/23/20 09:00 Resp 23 04/23/20 09:00 BP 150/74 04/23/20 09:00 Pulse Ox 87 L 04/23/20 09:00 Intake & Output 04/22/20 04/23/20 04/23/20 18:59 06:59 18:59 Intake Total 2439 1491 690 Output Total 845 545 165 Balance 1594 946 525 Weight 93.8 kg 103.9 kg Intake: IV 1852 1491 590 Fat Emulsion 20% 250 ml @ 42 231 20.833 mls/hr IV DAILY@ 1600 [facility] Rx#:[id number] Fluconazole in NaCl,Iso- 100 Osm 100 mg In Saline 1 50ml.bag @ 50 mls/hr IVPB DAILY [facility] Rx#:[id number] Mvi, Adult No.4 with Vit 60 360 90 K 10 ml Trace (Conc-1Ml/ Dose) 1 ml In Amino Acid 5%-D20w+Lytes*E* 1,000 ml @ 30 mls/hr IV .Q24H [facility] Rx#:[id number] Piperacillin-Tazobactam 3 100 100 .375 gm In Sodium Chloride 0.9% 100 ml @ 25 mls/hr IVPB Q8H [facility] Rx#: [id number] Sodium Chloride 0.9% 1, 1650 900 300 000 ml @ 150 mls/hr IV . Q6H40M [facility] Rx#:[id number] Oral 587 100 Output: Urine 845 545 165 Other: Voiding Method Indwelling Catheter Indwelling Catheter # Voids 130 - Exam GENERAL EXAM: Alert, very pleasant, 61-year-old obese white female on BiPAP support, with pressures of 16/8, and FiO2 of 100%, her pulse ox is 87-94%, comfortable in no apparent distress. HEAD: Normocephalic/atraumatic. EYES: Normal reaction of pupils, equal size. Conjunctiva pink, sclera white. NOSE: Clear with pink turbinates. THROAT: No erythema or exudates. NECK: No masses, no JVD, no thyroid enlargement, no adenopathy. CHEST: No chest wall deformity. Symmetrical expansion. LUNGS: Equal air entry with no crackles, wheeze, rhonchi or dullness. CVS: Regular rate and rhythm, normal S1 and S2, no gallops, no murmurs, no rubs ABDOMEN: Soft, nontender. No hepatosplenomegaly, normal bowel sounds, no guarding or rigidity. EXTREMITIES: No clubbing, no edema, no cyanosis, 2+ pulses and upper and lower extremities. MUSCULOSKELETAL: Muscle strength and tone normal. SPINE: No scoliosis or deformity SKIN: No rashes CENTRAL NERVOUS SYSTEM: Alert and oriented -3. No focal deficits, tone is normal in all 4 extremities. PSYCHIATRIC: Alert and oriented -3. Appropriate affect. Intact judgment and insight. - Labs CBC & Chem 7: 04/23/20 04:51 04/23/20 04:51 Labs: Abnormal Lab Results - Last 24 Hours (Table) 04/22/20 04/22/20 04/22/20 Range/Units 12:05 15:00 17:45 WBC (3.8-10.6) k/uL Hct (34.0-46.0) % Neutrophils # (1.3-7.7) k/uL Lymphocytes # (1.0-4.8) k/uL Monocytes # (0-1.0) k/uL Fibrinogen (200-500) mg/dL D-Dimer (<0.60) mg/L FEU Chloride (98-107) mmol/L BUN (7-17) mg/dL Creatinine (0.52-1.04) mg/dL Glucose (74-99) mg/dL POC Glucose (mg/dL) 193 H 157 H (75-99) mg/dL Calcium (8.4-10.2) mg/dL Magnesium 2.4 H (1.6-2.3) mg/dL AST (14-36) U/L C-Reactive Protein (<10.0) mg/L Total Protein (6.3-8.2) g/dL Albumin (3.5-5.0) g/dL Triglycerides (<150) mg/dL 04/22/20 04/23/20 04/23/20 Range/Units 20:25 04:51 04:51 WBC (3.8-10.6) k/uL Hct (34.0-46.0) % Neutrophils # (1.3-7.7) k/uL Lymphocytes # (1.0-4.8) k/uL Monocytes # (0-1.0) k/uL Fibrinogen 866 H (200-500) mg/dL D-Dimer 5.63 H (<0.60) mg/L FEU Chloride (98-107) mmol/L BUN (7-17) mg/dL Creatinine (0.52-1.04) mg/dL Glucose (74-99) mg/dL POC Glucose (mg/dL) 168 H (75-99) mg/dL Calcium (8.4-10.2) mg/dL Magnesium (1.6-2.3) mg/dL AST (14-36) U/L C-Reactive Protein 163.9 H (<10.0) mg/L Total Protein (6.3-8.2) g/dL Albumin (3.5-5.0) g/dL Triglycerides (<150) mg/dL 04/23/20 04/23/20 04/23/20 Range/Units 04:51 04:51 06:00 WBC 30.0 H (3.8-10.6) k/uL Hct 47.6 H (34.0-46.0) % Neutrophils # 28.2 H (1.3-7.7) k/uL Lymphocytes # 0.3 L (1.0-4.8) k/uL Monocytes # 1.3 H (0-1.0) k/uL Fibrinogen (200-500) mg/dL D-Dimer (<0.60) mg/L FEU Chloride 108 H (98-107) mmol/L BUN 22 H (7-17) mg/dL Creatinine 0.50 L (0.52-1.04) mg/dL Glucose 195 H (74-99) mg/dL POC Glucose (mg/dL) 184 H (75-99) mg/dL Calcium 7.7 L (8.4-10.2) mg/dL Magnesium 2.4 H (1.6-2.3) mg/dL AST 51 H (14-36) U/L C-Reactive Protein (<10.0) mg/L Total Protein 5.6 L (6.3-8.2) g/dL Albumin 2.3 L (3.5-5.0) g/dL Triglycerides 211 H (<150) mg/dL Microbiology - Last 24 Hours (Table) 04/21/20 23:37 Blood Culture - Preliminary Blood No Growth after 24 hours 04/22/20 09:00 Urine Culture - Preliminary Urine,Catheterized Assessment and Plan Plan: Assessment: #1. COVID 19 pneumonia/pneumonitis, with acute hypoxemic respiratory failure, currently on BiPAP or AIRVO. Completed a course of Remdesivir on the 04/16/2020, received 2 units of convalescent plasma patient remains on IV steroids and anticoagulation the form of Lovenox #2. Possible urinary tract infection related to yeast, current empiric antibiotic coverage includes Zosyn and Diflucan was added today on 04/23/2020 #3. History of previous hysterectomy. #4. Remote history of tobacco use. #5. Obesity #6. Elevated d-dimer, without evidence of pulmonary embolism. #7. Leukocytosis, possibly related to IV steroids, rule out possibility of a bacterial superinfection #8. Elevated liver enzymes likely related to viral pneumonia #9. Elevated inflammatory markers related to acute COVID 19 pneumonia #10. Tachycardia, episode of SVT, related to fever, and severe hypoxemia, improved, metoprolol was added, cardiology is following Plan: Continue with Zosyn, awaiting urine culture results, there is possibility of yeast in the urine, we'll add Diflucan. Continue BiPAP support, may give the patient another trial on Airvo. Encourage oral intake, continue TPN and lipids for nutritional support, per RD recommendations. Continue with same dose Lovenox, continue steroids, continue close monitoring in the intensive care unit. We updated the patient's nephew who is a retired occupational physician yesterday, CODE STATUS was discussed with the patient, patient would like to remain a full code at this time, we'll consider ventilator support, and even tracheostomy and PEG tube as long as there is some clinical improvement in response to treatment. I performed a history & physical examination of the patient and discussed their management with my nurse practitioner, Jeanna Hawkins. I reviewed the nurse practitioner's note and agree with the documented findings and plan of care. Lung sounds are positive for bilateral crackles. The findings and the impre ssion was discussed with the patient. I attest to the documentation by the nurse practitioner. Time with Patient: Greater than 30
[2020-04-23] MEDS: MORPHINE SULFATE 2 MG/ML SYRINGE IVP PRN ×2 (10:24→21:25)
[2020-04-23 10:45] LABS: Ferritin 3753.2 ng/mL (10.0-291.0)
[2020-04-23 11:43] LABS: Glucose,Whole Blood 240 mg/dL (75-99)
[2020-04-23] MEDS: THIAMINE 100 MG TAB PO SCH (12:20)
[2020-04-23] MEDS: MULTIVITAMINS, THERA 1 EACH TAB PO SCH (12:20)
[2020-04-23] MEDS: FOLIC ACID 1 MG TAB PO SCH (12:20)
[2020-04-23] MEDS: ALPRAZolam 0.25 MG TAB PO PRN ×2 (12:20→21:24)
[2020-04-23] MEDS: FAT EMULSION 20% 250 ML IV SCH (16:00)
[2020-04-23 17:07] LABS: Glucose,Whole Blood 190 mg/dL (75-99)
[2020-04-23] MEDS: 1: MVI, ADULT NO.4 WITH VIT K 10 ML, TRACE (CONC-1ML/DOSE) 1 ML in AMINO ACID 5%-D20W+LY IV SCH ×3 (17:12)
[2020-04-23 20:37] LABS: Glucose,Whole Blood 185 mg/dL (75-99)
--- NOTE | 2020-04-23 21:51 | PN ---
PROGRESS NOTE DATE OF SERVICE: 04/23/2020 REASON FOR FOLLOWUP: Acute COVID-19 pneumonia and elevated white count. INTERVAL HISTORY: The patient is currently afebrile. She has been breathing comfortably. Still requiring high-flow oxygen and BiPAP for now. Denies having any chest pain or cough. No abdominal pain or diarrhea. PHYSICAL EXAMINATION: Blood pressure 112/68 with a pulse of 59, temperature 97.9. She is 90% on BiPAP. General description is an elderly female up in the bed in no distress. RESPIRATORY SYSTEM: Unlabored breathing with decreased intensity of breath sounds. No wheeze. HEART: S1, S2. Regular rate and rhythm. ABDOMEN: Soft. No tenderness. LABS: Hemoglobin 15.4, white count 30,000, BUN of 22, creatinine 0.50. DIAGNOSTIC IMPRESSION AND PLAN: 1. Patient with acute respiratory failure which is multifactorial in this patient who did have COVID-19 pneumonia with concern for possible cytokine storm with elevated inflammatory markers, currently covered with Solu-Medrol. 2. Patient with a fever and elevated white count, more likely steroid effect. Underlying pneumonia etiology less likely. Covered with Zosyn with Diflucan today with watch response and monitor clinical course closely. MMODL / IJN: [id number] / KELSIE
--- NOTE | 2020-04-23 22:00 | P.PN ---
Subjective Ms. Mccoy is a 69-year-old female with a past medical history of hypertension and thyroid disorder admitted to the hospital for acute hypoxic respiratory failure secondary to COVID 19 pneumonia. Patient has extensive bilateral interstitial pneumonia. She is on a low and pulmonary Dr. Mathews is following the patient. Patient received a convalescent plasma, is also on Remdesivir. On 04/17/2020- This morning patient was evaluated in the ICU. Patient is comfortably sitting in a chair states that her breathing is improving gradually. She denies having any chest pain or palpitations. No cough or hemoptysis. She denies having any swelling or for lower extremities. No abdominal pain nausea vomiting or diarrhea. She denies having any dysuria or hematuria, she has a Bryan's catheter in place. On reviewing her vitals temperature 98.1 heart rate 75 is 5817, blood pressure 1:30 bradycardia. Saturating at 96% on a Aervo -60%. On 04/18/2020 - patient was seen and examined in the ICU. Patient is sitting in a chair by the bedside, states that her breathing has worsened compared to yesterday. Patient is on high flow Airvo, saturating in the low 90s. She denies having any chest pain or palpitations. She complains of cough that is nonproductive. Patient had a chest x-ray done showing stable bilateral air space disease. As the patient was having few episodes of tachycardia, she was started on Lopressor this morning. Patient's inflammatory markers are noted to be high. On reviewing her vitals saturating at 90% on high flow Airvo, heart rate 70s to 80s, respiratory rate 20-25, blood pressure 106-67. In reviewing her labs white count of 29.3, hemoglobin 16.8, platelets 369. D-dimer 6.99, LDH 2969, CRP 63.9. On 04/19/2020 - patient is seen and examined in the ICU. She is currently on BiPAP, as her respiratory status has worsened compared to yesterday. Patient denies having any chest pain or palpitations. No abdominal pain nausea vomiting or diarrhea. No dysuria or hematuria. She is on BiPAP 14/6 and 100% FiO2. On reviewing her vitals temperature is 99.2, respiratory rate is 25, heart rate 70, blood pressure 10 9 x 71. Reviewing the labs white count of 27.3, hemoglobin 17.4, platelets 314. Sodium 133, potassium 4.4, chloride 90, bicarbonate 35, BUN 31, creatinine 0.72. Ferritin 3195, CRP 217 and LDH 2747. 04/20/2020 This is a pleasant 69 years old female with multiple medical problems was adm itted for bilateral Covid pneumonia, she is currently on aervo at 90%/60 L of oxygen, saturating 89%. Rest of Vitas looks stable Also she is on BiPAP All the night. She is able to eat and drink, no pressors She is on normal saline at 75 mL/h with adequate urine output Patient is currently ON Medrol 40 mg twice daily, Lovenox 60 mg twice Mary and vitamin C and zinc. She finished her remdisvir and convelecent plasma. 04/21/2020 Patient remains in the ICU bed and respiratory support for her bilateral Covid pneumonia. She still dyspneic especially with exertion and she still needs BiPAP during the day shift. Also she had a fever today of 102.2. Patient is empirically on Zosyn/calcitonin check today showing normal level at 0.07. She has leukocytosis of 29K. I agree with Zosyn and I recommended to continue with that for now. Also patient is on steroids 60 mg every 6 hours. As there is no more significant progress progress in her clinical picture Glucose is 123 and inflammatory markers still elevated 04/22/2020 this is a pleasant 69 yo F who is admitted to the ICU for covid pneumonia, she is still on BiPAP dependant , TNP is started for her nutrition for this reasone. her oxygen saturation is on low 90s% cxr: diffuse interstitial opacities and worsening airspace disease in the left lower lung. consider interstitial edema wbc is sligtly less 26K, she is currently continued on zosyn , and solumedrol 60 mg. and normal saline increased to 150 ml/hr. and lovenox 60 mg BID she finised her Remdisvir and convelescent Plasma. 04/23/2020 Patient looks very tired, she came Off the BiPAP today morning and she was placed back on airvo at 60 L she is back and forth between BiPAP and airvo, however she probably will need BiPAP at night Inflammatory markers and d-dimer increased, ferritin 3100 up to 3700 and d-dimer 3 up to 5 Chest x-ray showing bilateral middle and lower infiltrates with slight improvement Treatments with antibiotics Zosyn, fluconazole was added today. Also she is also on Solu-Medrol 60 mg, normal sling was decreased to 50 mL per hour, Lovenox 60 mg twice daily, TPN and she is on vitamin C and zinc CONSTITUTIONAL: No fever, no malaise, no fatigue. HEENT: No recent visual problems or hearing problems. Denied any sore throat. CARDIOVASCULAR: No orthopnea, PND, no palpitations, no syncope. PULMONARY: No shortness of breath, no cough, no hemoptysis. GASTROINTESTINAL: No diarrhea, no nausea, no vomiting, no abdominal pain. Normoactive bowel sounds. NEUROLOGICAL: No headaches, no weakness, no numbness. Active Medications Generic Name Dose Route Start Last Admin Trade Name Freq PRN Reason Stop Dose Admin Acetaminophen 650 mg 04/11/20 16:48 04/21/20 04:34 Acetaminophen Tab 325 Mg Tab PO 650 mg Q6HR PRN Administration Mild Pain or Fever > 100.5 Albuterol Sulfate 2 puff 04/11/20 20:00 04/23/20 19:12 Albuterol Hfa Inhaler INHALATION 2 puff RT-TID PERRY Administration Alprazolam 0.25 mg 04/23/20 08:33 04/23/20 21:24 Alprazolam 0.25 Mg Tab PO 0.25 mg TID PRN Administration Anxiety Ascorbic Acid 250 mg 04/12/20 09:00 04/23/20 08:24 Ascorbic Acid 500 Mg Tab PO 250 mg DAILY PERRY Administration Cholecalciferol 1,000 unit 04/12/20 09:00 04/23/20 08:24 Cholecalciferol 1,000 Unit Tab PO 1,000 unit DAILY PERRY Administration Enoxaparin Sodium 60 mg 04/17/20 21:00 04/23/20 21:25 Enoxaparin 60 Mg/0.6 Ml Syringe SQ 60 mg BID PERRY Administration Famotidine 20 mg 04/21/20 09:45 04/23/20 21:27 Famotidine 20 Mg/2 Ml Vial IV 20 mg Q12HR PERRY Administration Folic Acid 1 mg 04/12/20 12:00 04/23/20 12:20 Folic Acid 1 Mg Tab PO 1 mg DAILY@1200 PERRY Administration HCTZ/Losartan Potassium 1 each 04/12/20 09:00 04/23/20 08:24 Losartan-Hctz 50-12.5 Mg 1 Each Tab PO 1 each DAILY PERRY Administration Piperacillin Sod/Tazobactam 100 mls @ 25 mls/hr 04/21/20 10:00 04/23/20 17:14 Sod 3.375 gm/ Sodium Chloride IVPB 25 mls/hr Q8H PERRY Administration Fat Emulsion Intravenous 250 mls @ 20.833 mls/hr 04/22/20 16:00 04/23/20 16:00 Lipids 20% IV 20.833 mls/hr DAILY@1600 PERRY Administration Parenteral Vitamin Supplement 1,011 mls @ 60 mls/hr 04/23/20 16:00 04/23/20 17:12 10 ml/ Chromium/Copper/ IV 60 mls/hr Manganese/Seleni/Zn 1 ml/ .BY DURATION PERRY Administration Amino Ac/Electrol/Dextrose/ Calcium Amino Ac/Electrol/Dextrose/Calcium 1,000 mls @ 60 mls/hr 04/23/20 16:00 Clinimix E 5%-20% Solution IV .BY DURATION PERRY Fluconazole/Sodium Chloride 50 mls @ 50 mls/hr 04/23/20 09:15 04/23/20 09:39 100 mg/ IV Solution IVPB 50 mls/hr DAILY PERRY Administration Sodium Chloride 1,000 mls @ 50 mls/hr 04/23/20 09:00 04/23/20 20:32 Saline 0.9% IV 50 mls/hr .Q20H PERRY Administration Insulin Aspart 0 unit 04/12/20 07:30 04/23/20 21:26 Insulin Aspart (Novolog) 100 Unit/Ml Vial SQ 4 unit ACHS PERRY Administration Protocol Levothyroxine Sodium 50 mcg 04/12/20 06:30 04/23/20 06:59 Levothyroxine 50 Mcg Tab PO 50 mcg DAILY@0630 PERRY Administration Melatonin 5 mg 04/19/20 19:45 04/19/20 20:08 Melatonin 5 Mg Tablet PO 5 mg HS PRN Administration Insomnia Methylprednisolone Sodium Succinate 60 mg 04/21/20 12:00 04/23/20 17:13 Methylprednisolone Sod Succi 125 Mg/2 Ml Vial IV 60 mg Q6HR PERRY Administration Metoprolol Tartrate 5 mg 04/21/20 21:00 04/23/20 21:24 Metoprolol Tartrate 5 Mg/5 Ml Vial IVP 5 mg Q6H PERRY Administration Miscellaneous Information 1 each 04/14/20 05:56 Potassium Replacement Protocol 1 Each Misc MISCELLANE DAILY PRN Per Protocol Protocol Morphine Sulfate 2 mg 04/23/20 08:34 04/23/20 21:25 Morphine Sulfate 2 Mg/Ml Syringe IVP 2 mg Q6H PRN Administration Pain/Discomfort Multivitamins 1 each 04/12/20 12:00 04/23/20 12:20 Multivitamins, Thera 1 Each Tab PO 1 each DAILY@1200 PERRY Administration Naloxone HCl 0.2 mg 04/11/20 16:48 Naloxone 0.4 Mg/Ml 1 Ml Vial IV Q2M PRN Opioid Reversal Ondansetron HCl 4 mg 04/15/20 20:08 Ondansetron 4 Mg/2 Ml Vial IVP Q6HR PRN Nausea And Vomiting Thiamine HCl 100 mg 04/12/20 12:00 04/23/20 12:20 Thiamine 100 Mg Tab PO 100 mg DAILY@1200 PERRY Administration Zinc Sulfate 220 mg 04/12/20 09:00 04/23/20 08:25 Zinc Sulfate 220 Mg Cap PO 220 mg DAILY PERRY Administration Objective - Vital Signs Vital signs: Vital Signs Temp 98.2 F 04/23/20 16:00 Pulse 68 04/23/20 19:00 Resp 23 04/23/20 19:00 BP 102/76 04/23/20 19:00 Pulse Ox 86 L 04/23/20 19:00 Intake & Output 04/23/20 04/23/20 04/24/20 06:59 18:59 06:59 Intake Total 1491 1603 131 Output Total 545 5265 120 Balance 946 -922 11 Weight 103.9 kg 103.9 kg Intake: IV 1491 1503 131 Fat Emulsion 20% 250 ml @ 231 63 21 20.833 mls/hr IV DAILY@ 1600 [facility] Rx#:[id number] Fluconazole in NaCl,Iso- 100 Osm 100 mg In Saline 1 50ml.bag @ 50 mls/hr IVPB DAILY [facility] Rx#:[id number] Mvi, Adult No.4 with Vit 360 330 K 10 ml Trace (Conc-1Ml/ Dose) 1 ml In Amino Acid 5%-D20w+Lytes*E* 1,000 ml @ 30 mls/hr IV .Q24H [facility] Rx#:[id number] Mvi, Adult No.4 with Vit 60 60 K 10 ml Trace (Conc-1Ml/ Dose) 1 ml In Amino Acid 5%-D20w+Lytes*E* 1,000 ml @ 60 mls/hr IV .BY DURATION PERRY Rx#: [id number] Piperacillin-Tazobactam 3 200 .375 gm In Sodium Chloride 0.9% 100 ml @ 25 mls/hr IVPB Q8H PERRY Rx#: [id number] Sodium Chloride 0.9% 1, 900 300 000 ml @ 150 mls/hr IV . Q6H40M [facility] Rx#:[id number] Sodium Chloride 0.9% 1, 450 50 000 ml @ 50 mls/hr IV . Q20H [facility] Rx#:[id number] Oral 100 Output: Urine 545 2525 120 Other: Voiding Method Indwelling Catheter Indwelling Catheter - Exam -GENERAL: The patient is alert and oriented x3, generally weak , on BiPAP HEENT: Pupils are round and equally reacting to light. EOMI. No scleral icterus. No conjunctival pallor. Normocephalic, atraumatic. No pharyngeal erythema. No thyromegaly. CARDIOVASCULAR: S1 and S2 present. No murmurs, rubs, or gallops. -PULMONARY: Chest is clear to auscultation, bilateral crepitation ABDOMEN: Soft, nontender, nondistended, normoactive bowel sounds. No palpable organomegaly. MUSCULOSKELETAL: No joint swelling or deformity. EXTREMITIES: No cyanosis, clubbing, or pedal edema. NEUROLOGICAL: Gross neurological examination did not reveal any focal deficits. SKIN: No rashes. no petechiae. - Labs CBC & Chem 7: 04/23/20 04:51 04/23/20 04:51 Labs: Abnormal Lab Results - Last 24 Hours (Table) 04/22/20 04/23/20 04/23/20 Range/Units 20:25 04:51 04:51 WBC (3.8-10.6) k/uL Hct (34.0-46.0) % Neutrophils # (1.3-7.7) k/uL Lymphocytes # (1.0-4.8) k/uL Monocytes # (0-1.0) k/uL Fibrinogen 866 H (200-500) mg/dL D-Dimer 5.63 H (<0.60) mg/L FEU Chloride (98-107) mmol/L BUN (7-17) mg/dL Creatinine (0.52-1.04) mg/dL Glucose (74-99) mg/dL POC Glucose (mg/dL) 168 H (75-99) mg/dL Calcium (8.4-10.2) mg/dL Magnesium (1.6-2.3) mg/dL Ferritin 3753.2 H (10.0-291.0) ng/mL AST (14-36) U/L C-Reactive Protein 163.9 H (<10.0) mg/L Total Protein (6.3-8.2) g/dL Albumin (3.5-5.0) g/dL Triglycerides (<150) mg/dL 04/23/20 04/23/20 04/23/20 Range/Units 04:51 04:51 06:00 WBC 30.0 H (3.8-10.6) k/uL Hct 47.6 H (34.0-46.0) % Neutrophils # 28.2 H (1.3-7.7) k/uL Lymphocytes # 0.3 L (1.0-4.8) k/uL Monocytes # 1.3 H (0-1.0) k/uL Fibrinogen (200-500) mg/dL D-Dimer (<0.60) mg/L FEU Chloride 108 H (98-107) mmol/L BUN 22 H (7-17) mg/dL Creatinine 0.50 L (0.52-1.04) mg/dL Glucose 195 H (74-99) mg/dL POC Glucose (mg/dL) 184 H (75-99) mg/dL Calcium 7.7 L (8.4-10.2) mg/dL Magnesium 2.4 H (1.6-2.3) mg/dL Ferritin (10.0-291.0) ng/mL AST 51 H (14-36) U/L C-Reactive Protein (<10.0) mg/L Total Protein 5.6 L (6.3-8.2) g/dL Albumin 2.3 L (3.5-5.0) g/dL Triglycerides 211 H (<150) mg/dL 04/23/20 04/23/20 Range/Units 11:42 17:05 WBC (3.8-10.6) k/uL Hct (34.0-46.0) % Neutrophils # (1.3-7.7) k/uL Lymphocytes # (1.0-4.8) k/uL Monocytes # (0-1.0) k/uL Fibrinogen (200-500) mg/dL D-Dimer (<0.60) mg/L FEU Chloride (98-107) mmol/L BUN (7-17) mg/dL Creatinine (0.52-1.04) mg/dL Glucose (74-99) mg/dL POC Glucose (mg/dL) 240 H 190 H (75-99) mg/dL Calcium (8.4-10.2) mg/dL Magnesium (1.6-2.3) mg/dL Ferritin (10.0-291.0) ng/mL AST (14-36) U/L C-Reactive Protein (<10.0) mg/L Total Protein (6.3-8.2) g/dL Albumin (3.5-5.0) g/dL Triglycerides (<150) mg/dL Microbiology - Last 24 Hours (Table) 04/22/20 09:00 Urine Culture - Final Urine,Catheterized 04/21/20 23:37 Blood Culture - Preliminary Blood No Growth after 24 hours Assessment and Plan Assessment: Acute hypoxic respiratory failure- due to COVID 19 pneumonia Increased d-dimer without evidence of PE Hyponatremia Leukocytosis Elevated and she telemetry markers Hypertension Hypothyroidism History of bilateral posterior tibial tendon repair Obesity with BMI of 35 Plan: This is a pleasant 69 years old female with Covid pneumonia and hypoxic respiratory failure. Continue with oxygen supplementation as needed, currently on airvo, and BiPAP, with pulmonary/critical care team and follow the case closely. With her inflammatory markers. Continue with Solu-Medrol and Lovenox and zinc and vitamin C. Monitored WBC Labs and medication were reviewed.. Continue same treatment. Continue with symptomatic treatment. Resume home medication. Monitor lytes and vitals. DVT and GI prophylaxis. Further recommendations as per clinical course of the patient DVT prophylaxis: Subcutaneous Lovenox GI Prophylaxis: Pepcid Prognosis is guarded
[2020-04-24] MEDS: methylPREDNISolone SOD SUCCI 125 MG/2 ML VIAL IV SCH ×4 (00:05→17:44)
[2020-04-24] MEDS: PIPERACILLIN-TAZOBACTAM 3.375 GM in SODIUM CHLORIDE 0.9% 100 ML IVPB SCH ×3 (01:54→17:44)
[2020-04-24] MEDS: METOPROLOL TARTRATE 5 MG/5 ML VIAL IVP SCH ×4 (03:00→21:34)
[2020-04-24 05:06] LABS: Basophils # (A) 0.1 k/uL (0-0.2); Basophils % (A) 0 %; Eosinophils % (A) 0 %; HCT 43.3 % (34.0-46.0); HGB 14.5 gm/dL (11.4-16.0); Lymphocytes # (A) 0.4 k/uL (1.0-4.8); Lymphocytes % (A) 2 %; MCHC 33.4 g/dL (31.0-37.0); MCV 92.8 fL (80.0-100.0); Mean Platelet Volume 7.7; Monocytes # (A) 1.1 k/uL (0-1.0); Monocytes % (A) 4 %; Neutrophils # (A) 26.8 k/uL (1.3-7.7); Neutrophils % (A) 94 %; Platelet Count 302 k/uL (150-450); RBC 4.66 m/uL (3.80-5.40); RDW 12.8 % (11.5-15.5); WBC 28.6 k/uL (3.8-10.6)
[2020-04-24 05:21] LABS: Potassium 3.5 mmol/L (3.5-5.1)
[2020-04-24 05:22] LABS: ALT 33 U/L (4-34); AST 44 U/L (14-36); African American GFR (CKD) >90 (>60 ml/min/1.73 sqM); Albumin 2.1 g/dL (3.5-5.0); Alkaline Phosphatase 105 U/L (38-126); Anion Gap 2 mmol/L; Blood Urea Nitrogen 25 mg/dL (7-17); Calcium 7.7 mg/dL (8.4-10.2); Carbon Dioxide 29 mmol/L (22-30); Chloride 106 mmol/L (98-107); Glucose 230 mg/dL (74-99); Magnesium 2.4 mg/dL (1.6-2.3); Non-African American GFR(CKD) >90 (>60 ml/min/1.73 sqM); Phosphorus 3.1 mg/dL (2.5-4.5); Sodium 137 mmol/L (137-145); Total Bilirubin 0.7 mg/dL (0.2-1.3); Total Protein 4.9 g/dL (6.3-8.2)
[2020-04-24] MEDS: POTASSIUM CHLORIDE 20 MEQ in WATER FOR INJECTION 1 100ML.BAG IVPB SCH ×2 (06:22→10:31)
[2020-04-24] MEDS: LEVOTHYROXINE 50 MCG TAB PO SCH (06:22)
[2020-04-24 06:38] LABS: Glucose,Whole Blood 204 mg/dL (75-99)
[2020-04-24] MEDS: INSULIN ASPART (NovoLOG) 100 UNIT/ML VIAL SQ SCH (07:01)
[2020-04-24] MEDS: ALBUTEROL HFA INHALER INHALATION SCH ×3 (07:30→20:57)
[2020-04-24] MEDS: MORPHINE SULFATE 2 MG/ML SYRINGE IVP PRN ×2 (07:36→12:56)
[2020-04-24] MEDS: ALPRAZolam 0.25 MG TAB PO PRN (07:37)
--- NOTE | 2020-04-24 07:45 | XR ---
EXAMINATION TYPE: XR chest 1V portable DATE OF EXAM: 04/24/2020 COMPARISON: Prior chest x-ray 04/23/2020 HISTORY: Covid pneumonia TECHNIQUE: Single frontal view of the chest is obtained. FINDINGS: Patchy bilateral groundglass density is again seen. No evident pneumothorax or pleural eff usion. Cardiac mediastinal silhouette is stable. Left-sided PICC line shows the distal tip overlying the left innominate vein. Aorta is dense. IMPRESSION: Stable findings consistent with patient's history of Covid pneumonia.
[2020-04-24] MEDS ORDERED: CISATRACURIUM 2 MG/ML 5 ML VIAL IV ONE ×2 (08:27→15:45)
[2020-04-24] MEDS: propofoL 0 ML IV ONE ×2 (08:45→09:33)
--- NOTE | 2020-04-24 08:50 | P.PCN ---
Date of Procedure: 04/24/20 Procedure(s) Performed: Emergency intubation= patient had a history of acute respiratory failure , with COVID19 pneumonitis, and patient needed intubation, as per ICU team recommendation, patient was on 100% oxygen and BiPAP, then rapid sequence induction with cricoid pressure with 100 mg of propofol, followed 100 mg of succinylcholine, the patient intubated using MAC #3 with cricoid pressure, oral ET tube 7-1/2 placed atraumatic, pupils secured at 23 cm, was positive end-tidal CO2 change
--- NOTE | 2020-04-24 09:17 | XR ---
EXAMINATION TYPE: XR chest 1V portable DATE OF EXAM: 04/24/2020 COMPARISON: Right chest x-ray 04/24/2020 at earlier time HISTORY: Status post intubation TECHNIQUE: Single frontal view of the chest is obtained. FINDINGS: .Interval placement of an endotracheal tube and NG tube. No other significant interval shirley nge. Tubes are overlying appropriate position. IMPRESSION: No evident location status post intubation
[2020-04-24] MEDS: DILTIAZEM 125 MG in SODIUM CHLORIDE 0.9% 100 ML IV SCH ×2 (09:49→18:16)
[2020-04-24 09:56] LABS: ABG Base Excess 1.8 mmol/L; ABG HCO3 30 mmol/L (21-25); ABG Oxygen Saturation 91.7 % (94-97); ABG PO2 83 mmHg (83-108); ABG TCO2 32 mmol/L (19-24)
[2020-04-24 10:00] LABS: ABG PCO2 76 mmHg (35-45); Allen Test Performed? no
[2020-04-24] MEDS: 1: MVI, ADULT NO.4 WITH VIT K 10 ML, TRACE (CONC-1ML/DOSE) 1 ML in AMINO ACID 5%-D20W+LY IV SCH ×6 (10:31→12:06)
[2020-04-24] MEDS: LOSARTAN-HCTZ 50-12.5 MG 1 EACH TAB PO SCH (10:33)
[2020-04-24] MEDS: ZINC SULFATE 220 MG CAP PO SCH (10:33)
[2020-04-24] MEDS: FAMOTIDINE 20 MG/2 ML VIAL IV SCH ×2 (10:33→21:32)
[2020-04-24] MEDS: ASCORBIC ACID 500 MG TAB PO SCH (10:33)
[2020-04-24] MEDS: ENOXAPARIN 60 MG/0.6 ML SYRINGE SQ SCH ×2 (10:33→21:33)
[2020-04-24] MEDS: CHOLECALCIFEROL 1,000 UNIT TAB PO SCH (10:34)
[2020-04-24] MEDS: FLUCONAZOLE IN NACL,ISO-OSM 100 MG in SALINE 1 50ML.BAG IVPB SCH (10:35)
--- NOTE | 2020-04-24 11:10 | PCN ---
PROCEDURE NOTE DATE OF PROCEDURE: 04/24/2020. PROCEDURE PERFORMED: Left radial arterial line insertion. ARTERIAL LINE PLACEMENT: PREOP DIAGNOSES: Hypotension, hemodynamic monitoring. POSTOP DIAGNOSES: Hypotension, hemodynamic monitoring. Indications: Hemodynamic monitoring. A time-out was completed verifying correct patient, procedure, site, positioning, and implant(s) or special equipment if applicable. Ajith's test was performed to ensure adequate perfusion. The patient's right wrist was prepped and draped in sterile fashion. 1% Lidocaine was used to anesthetize the area. An 18G Arrow arterial line was introduced into the radial artery. The catheter was threaded over the guide wire and the needle was removed with appropriate pulsatile blood return. Blood loss was minimal. The catheter was then sutured in place to the skin and a sterile dressing applied. Perfusion to the extremity distal to the point of catheter insertion was checked and found to be adequate. The patient tolerated the procedure well and there were no complications. MMODL / IJN: [id number] /
[2020-04-24 12:00] LABS: Glucose,Whole Blood 308 mg/dL (75-99)
[2020-04-24 12:00] LABS: Glucose,Whole Blood 323 mg/dL (75-99)
[2020-04-24] MEDS ORDERED: INSULIN REGULAR BOLUS (FROM DRIP BAG) IV PRN (12:03)
[2020-04-24] MEDS: FOLIC ACID 1 MG TAB PO SCH (12:09)
[2020-04-24] MEDS: MULTIVITAMINS, THERA 1 EACH TAB PO SCH (12:09)
[2020-04-24] MEDS: THIAMINE 100 MG TAB PO SCH (12:09)
--- NOTE | 2020-04-24 12:22 | P.PN ---
Subjective Progress Note Date: 04/24/20 Principal diagnosis: CoVID 19 pneumonia This 69-year-old white female patient who was admitted to the hospital on 04/11/2020 when she came in for evaluation of 1 week history of cough, fever, shortness of breath, decreased appetite and intermittent episodes of diarrhea. Patient was diagnosed with COVID 19 pneumonia, this was done via outpatient testing through the health Department. Patient initially presented for [facility], she was hypoxemic with a pulse ox in the 80s and she was placed on high flow oxygen and transferred to the [facility]. CT a ngiogram of the chest showed no evidence of pulmonary embolism, however it showed evidence of bilateral interstitial infiltrates consistent with COVID 19 pneumonitis. Patient completed her Remdesivir treatment on 04/16/2020, she received 2 units of convalescent plasma, she remains on IV steroids with IV Solu-Medrol 40 mg every 12 hours. She is on point and was seen at a rate of 75 ML per hour. In view of her worsening hypoxemia patient was transferred to the intensive care unit, she is currently on BiPAP support with pressures of 14/6, and FiO2 of 100%, patient has been pretty much BiPAP dependent, her pulse ox is 82-84%, this morning patient had episode of SVT with a heart rate up to 250, patient has been afebrile, T-max in last 24 hours was 102.2F. Today's chest x- ray still shows interstitial infiltrates in the mid and lower lungs that are becoming more confluent in the left base. His labs have been reviewed, showing white blood cell, 29.7, hemoglobin of 16.9, lymphocyte count is 1.1, and neutrophil count is 27, fibrinogen level is 963, her last d-dimer was yesterday at 3.01, sodium is 134, the rest a large joints were unremarkable, B1 is 23 creatinine 0.73, total bilirubin is 1.5, her liver enzymes have worsened, AST 70, ALT is 56, alk phos is 135, LDH is 2500, CRP is 144, patient's interleukin-6 level was significantly elevated at 57.1. Patient remains on Lovenox 60 mg twice daily. On 04/22/2020 patient seen in follow-up in intensive care unit, she is resting in bed, she was on BiPAP support with pressures of 16 and 8 and FiO2 of 100%, and she was switched to Airvo this morning a little while ago, with oxygen for 60 L/m and FiO2 of 95%, however patient quickly started desaturating, she is becoming obviously cyanotic, and short of breath. She will be placed back on BiPAP support, she remains BiPAP support dependent for the most part. She is currently on 0.9 normal saline at a rate of 50 ML per hour. She has not been able to take much in the way of oral nutrition related to her severe hypoxemia, and BiPAP dependence. Patient is awake and alert, oriented 3, she is answering questions appropriately, slightly tachypneic, but appears to be in no acute distress, she has been on bedrest for the most part. No cough, no chest pain, no palpitations. She has been afebrile. Yesterday we started her on Zosyn for empiric antibiotic coverage, however her pro-calcitonin came back negative at 0.07, however today's pro-calcitonin came back at 0.39. Nursing staff stated that patient's urine has been quite cloudy and turbid-looking, urinalysis revealed trace protein, large urine, 1+ ketones, small amount of leuks, white blood cells, and occasional yeast. No nausea or vomiting. Today's chest x-ray showing bilateral multifocal reticulonodular infiltrates mid to lower lung with basilar organizing consolidations, findings consistent with Coumadin continued infection, no change from one day earlier. Blood cultures have been negative, patient has had no fever. Nursing staff confirmed CODE STATUS with the patient and patient was to continue to be full code at this time. We will update her nephew who is a retired physician and the patient's condition per patient's request. On 04/23/2020 patient seen in follow-up in intensive care unit, she is currently back on BiPAP, pressures of 16/8, and FiO2 of the 100%, her pulse ox is 93%, she is currently on 0.9 normal saline at a rate of 1:15 per hour, yesterday we initiate patient on TPN for nutritional support which is currently running at 38 with a goal of increasing it today to 60 mL per hour, and lipids 12 hours on 12 hours off. Patient has been afebrile, hemodynamically she has been stable, in sinus mechanism, appears to be in no acute distress, but does experience episodes of restlessness, and anxiety related to severe hypoxemia. She has been given Ativan, however patient can be switched back to her home dose of Xanax on as needed basis and we will add some morphine for shortness of breath, anxiety and breathlessness. Today's chest x-ray has been reviewed showing fine interst itial infiltrates primarily in the mid and lower lungs, slight improvement in aeration at the left lower lung, yesterday we started the patient on Zosyn for possibility of a bacterial infection possibly in the urine, urine culture still pending, there is a possibility of yeast in the urine cultures, and we will add IV Diflucan in the meantime as well. His labs have been reviewed, showing trending leukocytosis, white blood cell count up to 70, hemoglobin is 15.4, fibrinogen level down slightly to 866, d-dimer is trending back up to 5.63 on today's labs, sodium is 137, potassium 4.2, chloride is 108, BUN is 22, creatinine 0.50, LDH is pending, CRP is still significantly elevated is 163.9. The patient is seen today 04/24/2020 in follow-up in the intensive care unit. She has been on BiPAP 22/11 on 100% FiO2 throughout the night. She is nourished with TPN at 60 ML's per hour. .9 normal saline at 50 MLS per hour. Upon evaluation early this morning the patient had been off BiPAP trying some breakfast however she was desaturating significantly and placed back on the BiPAP and has been slow to recover. O2 saturations 79-80% Tachypneic. Tachycardic in the 160s-170s. The decision was made to go ahead and intubate her per anesthesia and placed on mechanical ventilator. She is currently on assist control mode, rate of 24. Tidal volume 350. FiO2 100% and a PEEP of 5. She was sedated with propofol, given a dose of Nimbex. Left radial arterial line placed. She has a dual lumen PICC in the left upper extremity. Chest x- ray continues to revealed patchy bilateral groundglass densities. She has received 2 units of convalescent plasma. She completed Remdesivir. Blood cultures reveal no growth. Urine culture revealed no growth. She was given 3 days of Zosyn empirically. White count 28.6. Hemoglobin 14.5. Sodium 137. Potassium 3.5. Creatinine 0.46. Objective - Vital Signs Vital signs: Vital Signs Temp 97.7 F 04/24/20 08:00 Pulse 165 H 04/24/20 11:00 Resp 28 H 04/24/20 11:00 BP 140/98 04/24/20 11:00 Pulse Ox 89 L 04/24/20 11:00 Intake & Output 04/23/20 04/24/20 04/24/20 18:59 06:59 18:59 Intake Total 1603 1641 1768.833 Output Total 2525 735 190 Balance -043 250 4029.833 Weight 103.9 kg 104.3 kg Intake: IV 1503 1641 750 Fat Emulsion 20% 250 ml @ 63 221 20.833 mls/hr IV DAILY@ 1600 [facility] Rx#:[id number] Fluconazole in NaCl,Iso- 100 100 Osm 100 mg In Saline 1 50ml.bag @ 50 mls/hr IVPB DAILY [facility] Rx#:[id number] Mvi, Adult No.4 with Vit 330 K 10 ml Trace (Conc-1Ml/ Dose) 1 ml In Amino Acid 5%-D20w+Lytes*E* 1,000 ml @ 30 mls/hr IV .Q24H [facility] Rx#:[id number] Mvi, Adult No.4 with Vit 60 720 300 K 10 ml Trace (Conc-1Ml/ Dose) 1 ml In Amino Acid 5%-D20w+Lytes*E* 1,000 ml @ 60 mls/hr IV .BY DURATION [facility] Rx#: [id number] Piperacillin-Tazobactam 3 200 100 100 .375 gm In Sodium Chloride 0.9% 100 ml @ 25 mls/hr IVPB Q8H [facility] Rx#: [id number] Sodium Chloride 0.9% 1, 300 000 ml @ 150 mls/hr IV . Q6H40M [facility] Rx#:[id number] Sodium Chloride 0.9% 1, 450 600 250 000 ml @ 50 mls/hr IV . Q20H [facility] Rx#:[id number] Intake, IV Titration 1018.833 Amount Diltiazem 125 mg In 7.833 Sodium Chloride 0.9% 100 ml @ 5 MG/HR 5 mls/hr IV .Q24H [facility] Rx#:[id number] Mvi, Adult No.4 with Vit 1011 K 10 ml Trace (Conc-1Ml/ Dose) 1 ml In Amino Acid 5%-D20w+Lytes*E* 1,000 ml @ 60 mls/hr IV .BY DURATION [facility] Rx#: [id number] Oral 100 Output: Urine 2525 735 190 Other: Voiding Method Indwelling Catheter Indwelling Catheter Indwelling Catheter ABP, PAP, CO, CI - Last Documented Arterial Blood Pressure 112/67 - Exam GENERAL EXAM: Intubated, sedated 69-year-old female patient, comfortable in no apparent distress. HEAD: Normocephalic. EYES: Normal reaction of pupils, equal size. NOSE: Clear with pink turbinates. THROAT: Oral endotracheal and gastric tube secured in place. No erythema or exudates. NECK: No masses, no JVD. CHEST: No chest wall deformity. LUNGS: Equal air entry with the bilateral posterior bases. CVS: S1 and S2 normal with no audible murmur, irregular rhythm. Tachycardic. ABDOMEN: No hepatosplenomegaly, normal bowel sounds, no guarding or rigidity. SPINE: No scoliosis or deformity SKIN: No rashes CENTRAL NERVOUS SYSTEM: Sedated, tone is normal in all 4 extremities. EXTREMITIES: There is no peripheral edema. No clubbing, no cyanosis. Peripheral pulses are intact. - Labs CBC & Chem 7: 04/24/20 04:51 04/24/20 04:51 Labs: Abnormal Lab Results - Last 24 Hours (Table) 04/23/20 04/23/20 04/24/20 Range/Units 17:05 20:35 04:51 WBC (3.8-10.6) k/uL Neutrophils # (1.3-7.7) k/uL Lymphocytes # (1.0-4.8) k/uL Monocytes # (0-1.0) k/uL ABG pH (7.35-7.45) ABG pCO2 (35-45) mmHg ABG HCO3 (21-25) mmol/L ABG Total CO2 (19-24) mmol/L ABG O2 Saturation (94-97) % BUN 25 H (7-17) mg/dL Creatinine 0.46 L (0.52-1.04) mg/dL Glucose 230 H (74-99) mg/dL POC Glucose (mg/dL) 190 H 185 H (75-99) mg/dL Calcium 7.7 L (8.4-10.2) mg/dL Magnesium 2.4 H (1.6-2.3) mg/dL AST 44 H (14-36) U/L Total Protein 4.9 L (6.3-8.2) g/dL Albumin 2.1 L (3.5-5.0) g/dL 04/24/20 04/24/20 04/24/20 Range/Units 04:51 06:35 09:54 WBC 28.6 H (3.8-10.6) k/uL Neutrophils # 26.8 H (1.3-7.7) k/uL Lymphocytes # 0.4 L (1.0-4.8) k/uL Monocytes # 1.1 H (0-1.0) k/uL ABG pH 7.20 L (7.35-7.45) ABG pCO2 76 H* (35-45) mmHg ABG HCO3 30 H (21-25) mmol/L ABG Total CO2 32 H (19-24) mmol/L ABG O2 Saturation 91.7 L (94-97) % BUN (7-17) mg/dL Creatinine (0.52-1.04) mg/dL Glucose (74-99) mg/dL POC Glucose (mg/dL) 204 H (75-99) mg/dL Calcium (8.4-10.2) mg/dL Magnesium (1.6-2.3) mg/dL AST (14-36) U/L Total Protein (6.3-8.2) g/dL Albumin (3.5-5.0) g/dL 04/24/20 04/24/20 Range/Units 11:56 11:58 WBC (3.8-10.6) k/uL Neutrophils # (1.3-7.7) k/uL Lymphocytes # (1.0-4.8) k/uL Monocytes # (0-1.0) k/uL ABG pH (7.35-7.45) ABG pCO2 (35-45) mmHg ABG HCO3 (21-25) mmol/L ABG Total CO2 (19-24) mmol/L ABG O2 Saturation (94-97) % BUN (7-17) mg/dL Creatinine (0.52-1.04) mg/dL Glucose (74-99) mg/dL POC Glucose (mg/dL) 323 H 308 H (75-99) mg/dL Calcium (8.4-10.2) mg/dL Magnesium (1.6-2.3) mg/dL AST (14-36) U/L Total Protein (6.3-8.2) g/dL Albumin (3.5-5.0) g/dL Microbiology - Last 24 Hours (Table) 04/21/20 23:37 Blood Culture - Preliminary Blood No Growth after 48 hours 04/22/20 09:00 Urine Culture - Final Urine,Catheterized Assessment and Plan Assessment: 1 Acute hypoxemic respiratory failure secondary to acute COVID 19 pneumonia/pneumonitis, failed previous oxygenation treatments and required intubation and mechanical ventilatory support 04/24/2020. Completed a course of Remdesivir on the 04/16/2020, received 2 units of convalescent plasma patient remains on IV steroids and anticoagulation the form of Lovenox 2 Tachycardia, episode of SVT, related to fever, and severe hypoxemia, metop rolol was added, recent trip initiated, cardiology consulted 3 Possible urinary tract infection related to yeast, current empiric antibiotic coverage includes Zosyn and Diflucan was added 04/23/2020 4 Remote history of tobacco use. 5 Obesity 6 Elevated d-dimer, without evidence of pulmonary embolism. Remains on Lovenox 60 mg subcu twice a day 7 Leukocytosis, possibly related to IV steroids, rule out possibility of a bacterial superinfection 8 Elevated liver enzymes likely related to viral pneumonia 9 Elevated inflammatory markers related to acute COVID 19 pneumonia Plan: The patient was seen and evaluated by Dr. Woodruff She did require intubation and mechanical ventilatory support this morning ABGs reviewed, increase rate to 30, increase the PEEP to 10 titrate down the FiO2 as tolerated Sedated with propofol Discontinue TPN, tube feedings per dietary recommendations Left radial arterial line placed PICC line remains in place Family was updated Prognosis remains guarded We will continue to follow and make further recommendations based on her clinical status Critical care time 38 minutes, not including procedures I, the cosigning physician, performed a history & physical examination of the patient. Lungs sounds with bibasilar crackles. Maintaining good O2 saturations in the 90s on 100% FiO2 via the mechanical ventilator. I discussed the assessment and plan of care with my nurse practitioner, Shell Almazan. I attest to the above note as dictated by her.
[2020-04-24] MEDS: INSULIN REGULAR 100 UNIT in SODIUM CHLORIDE 0.9% 100 ML IV SCH ×2 (12:30→18:52)
[2020-04-24 13:03] LABS: Glucose,Whole Blood 337 mg/dL (75-99)
[2020-04-24 13:52] LABS: Glucose,Whole Blood 247 mg/dL (75-99)
[2020-04-24] MEDS ORDERED: SODIUM CHLORIDE 0.9% 1,000 ML IV ONE (15:00)
[2020-04-24 15:01] LABS: Glucose,Whole Blood 258 mg/dL (75-99)
[2020-04-24 15:34] LABS: ABG Base Excess -0.3 mmol/L; ABG HCO3 26 mmol/L (21-25); ABG Oxygen Saturation 90.7 % (94-97); ABG PCO2 54 mmHg (35-45); ABG PO2 66 mmHg (83-108); ABG TCO2 28 mmol/L (19-24); Allen Test Performed? Yes
--- NOTE | 2020-04-24 15:40 | PN ---
PROGRESS NOTE DATE OF SERVICE: 04/24/2020 REASON FOR FOLLOWUP: Pneumonia. INTERVAL HISTORY: The patient is currently afebrile. The patient did go into respiratory distress and ended up getting intubated. The patient is currently on the vent, 100% FiO2. No significant pleural secretion in the ET or any diarrhea per the nursing staff. PHYSICAL EXAMINATION: Blood pressure 111/78 with a pulse of 144, temperature is 97.7. She is 91% on 100% FiO2. General description is an elderly female intubated on the vent. Respiratory system: Unlabored breathing, decreased intense breath sounds. No wheeze. HEART: S1, S2. Regular rate and rhythm. ABDOMEN: Soft, no tenderness. LABS: Hemoglobin 14.5, white count 28.6, BUN of 25, creatinine 0.46. DIAGNOSTIC IMPRESSION AND PLAN: Patient with acute respiratory failure which is multifactorial in this patient who did have a component of COVID-19 pneumonia now with worsening respiratory status and intubated, more likely related to Cytokine storm in this patient currently covered with Solu-Medrol, Lovenox, Zinc and ascorbic acid also on sulfa antibiotics. Sputum culture will be requested and antibiotic adjusted further if needed. MMODL / IJN: [id number] /
[2020-04-24] MEDS ORDERED: DEXTROSE 5% IN WATER 100 ML with AMIODARONE 150 MG IV ONE (15:50)
[2020-04-24] MEDS: CISATRACURIUM 200 MG in SODIUM CHLORIDE 0.9% 180 ML IV SCH (15:51)
[2020-04-24] MEDS ORDERED: AMIODARONE 360 MG in DEXTROSE 5% IN WATER 200 ML IV ONE ×2 (16:00)
[2020-04-24 16:10] LABS: Glucose,Whole Blood 192 mg/dL (75-99)
[2020-04-24] MEDS: HYDROmorphone 1 MG/ML 1 ML SYRINGE IVP PRN (16:53)
[2020-04-24 17:00] LABS: Glucose,Whole Blood 175 mg/dL (75-99)
[2020-04-24 18:15] LABS: Glucose,Whole Blood 141 mg/dL (75-99)
[2020-04-24] MEDS ORDERED: Potassium Replacement Protocol 1 EACH MISC MISCELLANE PRN (18:43)
[2020-04-24] MEDS: POTASSIUM BICARBONATE/CIT AC 20 MEQ TABLET.EFF NG-TUBE SCH ×2 (18:52→21:33)
[2020-04-24 19:01] LABS: Glucose,Whole Blood 139 mg/dL (75-99)
[2020-04-24 20:07] LABS: Glucose,Whole Blood 159 mg/dL (75-99)
[2020-04-24 20:58] LABS: Glucose,Whole Blood 179 mg/dL (75-99)
[2020-04-24] MEDS: CHLORHEXIDINE GLUCONATE 15 ML CUP MUCOUS MEM SCH (21:33)
[2020-04-24 22:03] LABS: Glucose,Whole Blood 167 mg/dL (75-99)
[2020-04-24] MEDS: AMIODARONE 450 MG in DEXTROSE 5% IN WATER 250 ML IV SCH ×2 (22:03)
--- NOTE | 2020-04-24 22:26 | P.PN ---
Subjective Ms. Mccoy is a 69-year-old female with a past medical history of hypertension and thyroid disorder admitted to the hospital for acute hypoxic respiratory failure secondary to COVID 19 pneumonia. Patient has extensive bilateral interstitial pneumonia. She is on a low and pulmonary Dr. Mathews is following the patient. Patient received a convalescent plasma, is also on Remdesivir. On 04/17/2020- This morning patient was evaluated in the ICU. Patient is comfortably sitting in a chair states that her breathing is improving gradually. She denies having any chest pain or palpitations. No cough or hemoptysis. She denies having any swelling or for lower extremities. No abdominal pain nausea vomiting or diarrhea. She denies having any dysuria or hematuria, she has a Bryan's catheter in place. On reviewing her vitals temperature 98.1 heart rate 75 is 5817, blood pressure 1:30 bradycardia. Saturating at 96% on a Aervo -60%. On 04/18/2020 - patient was seen and examined in the ICU. Patient is sitting in a chair by the bedside, states that her breathing has worsened compared to yesterday. Patient is on high flow Airvo, saturating in the low 90s. She denies having any chest pain or palpitations. She complains of cough that is nonproductive. Patient had a chest x-ray done showing stable bilateral air space disease. As the patient was having few episodes of tachycardia, she was started on Lopressor this morning. Patient's inflammatory markers are noted to be high. On reviewing her vitals saturating at 90% on high flow Airvo, heart rate 70s to 80s, respiratory rate 20-25, blood pressure 106-67. In reviewing her labs white count of 29.3, hemoglobin 16.8, platelets 369. D-dimer 6.99, LDH 2969, CRP 63.9. On 04/19/2020 - patient is seen and examined in the ICU. She is currently on BiPAP, as her respiratory status has worsened compared to yesterday. Patient denies having any chest pain or palpitations. No abdominal pain nausea vomiting or diarrhea. No dysuria or hematuria. She is on BiPAP 14/6 and 100% FiO2. On reviewing her vitals temperature is 99.2, respiratory rate is 25, heart rate 70, blood pressure 10 9 x 71. Reviewing the labs white count of 27.3, hemoglobin 17.4, platelets 314. Sodium 133, potassium 4.4, chloride 90, bicarbonate 35, BUN 31, creatinine 0.72. Ferritin 3195, CRP 217 and LDH 2747. 04/20/2020 This is a pleasant 69 years old female with multiple medical problems was adm itted for bilateral Covid pneumonia, she is currently on aervo at 90%/60 L of oxygen, saturating 89%. Rest of Vitas looks stable Also she is on BiPAP All the night. She is able to eat and drink, no pressors She is on normal saline at 75 mL/h with adequate urine output Patient is currently ON Medrol 40 mg twice daily, Lovenox 60 mg twice Mary and vitamin C and zinc. She finished her remdisvir and convelecent plasma. 04/21/2020 Patient remains in the ICU bed and respiratory support for her bilateral Covid pneumonia. She still dyspneic especially with exertion and she still needs BiPAP during the day shift. Also she had a fever today of 102.2. Patient is empirically on Zosyn/calcitonin check today showing normal level at 0.07. She has leukocytosis of 29K. I agree with Zosyn and I recommended to continue with that for now. Also patient is on steroids 60 mg every 6 hours. As there is no more significant progress progress in her clinical picture Glucose is 123 and inflammatory markers still elevated 04/22/2020 this is a pleasant 69 yo F who is admitted to the ICU for covid pneumonia, she is still on BiPAP dependant , TNP is started for her nutrition for this reasone. her oxygen saturation is on low 90s% cxr: diffuse interstitial opacities and worsening airspace disease in the left lower lung. consider interstitial edema wbc is sligtly less 26K, she is currently continued on zosyn , and solumedrol 60 mg. and normal saline increased to 150 ml/hr. and lovenox 60 mg BID she finised her Remdisvir and convelescent Plasma. 04/23/2020 Patient looks very tired, she came Off the BiPAP today morning and she was placed back on airvo at 60 L she is back and forth between BiPAP and airvo, however she probably will need BiPAP at night Inflammatory markers and d-dimer increased, ferritin 3100 up to 3700 and d-dimer 3 up to 5 Chest x-ray showing bilateral middle and lower infiltrates with slight improvement Treatments with antibiotics Zosyn, fluconazole was added today. Also she is also on Solu-Medrol 60 mg, normal sling was decreased to 50 mL per hour, Lovenox 60 mg twice daily, TPN and she is on vitamin C and zinc 04/24/2020 Patient today her clinical condition deteriorated, she was hypoxic this morning with oxygen saturation in the 70s percent and she was tachycardic with heart rate 140-150, patient ended up being intubated in the morning and she was in an you onset of A. fib and started on Cardizem drip on 15 mg however her heart rate was still elevated, cardiology team were consulted, blood pressure was on the low normal side. Amiodarone drip was started. Cardiology team and Cardizem drip was shut to 15 mg/h. Also insulin drip for hyperglycemia with sugar more than 300. Review of systems N/a Active Medications Generic Name Dose Route Start Last Admin Trade Name Freq PRN Reason Stop Dose Admin Acetaminophen 650 mg 04/11/20 16:48 04/21/20 04:34 Acetaminophen Tab 325 Mg Tab PO 650 mg Q6HR PRN Administration Mild Pain or Fever > 100.5 Albuterol Sulfate 2 puff 04/11/20 20:00 04/24/20 20:57 Albuterol Hfa Inhaler INHALATION 2 puff RT-TID P[facility]Y Administration Alprazolam 0.25 mg 04/23/20 08:33 04/24/20 07:37 Alprazolam 0.25 Mg Tab PO 0.25 mg TID PRN Administration Anxiety Ascorbic Acid 250 mg 04/12/20 09:00 04/24/20 10:33 Ascorbic Acid 500 Mg Tab PO 250 mg DAILY PERRY Administration Chlorhexidine Gluconate 15 ml 04/24/20 21:00 04/24/20 21:33 Chlorhexidine Gluconate 15 Ml Cup MUCOUS MEM 15 ml BID PERRY Administration Cholecalciferol 1,000 unit 04/12/20 09:00 04/24/20 10:34 Cholecalciferol 1,000 Unit Tab PO 1,000 unit DAILY PERRY Administration Enoxaparin Sodium 60 mg 04/17/20 21:00 04/24/20 21:33 Enoxaparin 60 Mg/0.6 Ml Syringe SQ 60 mg BID PERRY Administration Famotidine 20 mg 04/21/20 09:45 04/24/20 21:32 Famotidine 20 Mg/2 Ml Vial IV 20 mg Q12HR P[facility]Y Administration Folic Acid 1 mg 04/12/20 12:00 04/24/20 12:09 Folic Acid 1 Mg Tab PO 1 mg DAILY@1200 P[facility] Administration HCTZ/Losartan Potassium 1 each 04/12/20 09:00 04/24/20 10:33 Losartan-Hctz 50-12.5 Mg 1 Each Tab PO 1 each DAILY P[facility]Y Administration Hydromorphone HCl 1 mg 04/24/20 16:50 04/24/20 16:53 Hydromorphone 1 Mg/Ml 1 Ml Syringe IVP 1 mg Q2HR PRN Administration Pain Piperacillin Sod/Tazobactam 100 mls @ 25 mls/hr 04/21/20 10:00 04/24/20 17:44 Sod 3.375 gm/ Sodium Chloride IVPB 25 mls/hr Q8H [facility] Administration Fluconazole/Sodium Chloride 50 mls @ 50 mls/hr 04/23/20 09:15 04/24/20 10:35 100 mg/ IV Solution IVPB 50 mls/hr DAILY P[facility]Y Administration Sodium Chloride 1,000 mls @ 50 mls/hr 04/23/20 09:00 04/23/20 20:32 Saline 0.9% IV 50 mls/hr .Q20H [facility] Administration Diltiazem HCl 125 mg/ Sodium 125 mls @ 5 mls/hr 04/24/20 09:30 04/24/20 18:16 Chloride IV 15 mg/hr .Q24H P[facility]Y 15 mls/hr Administration 5 MG/HR Propofol 1,000 mg/ IV Solution 100 mls @ 0 mls/hr 04/24/20 08:45 04/24/20 17:41 IV 40 mcg/kg/min .Q0M P[facility] 25.032 mls/hr Administration Protocol Titrate Insulin Human Regular 100 unit 101 mls @ 0 mls/hr 04/24/20 12:15 04/24/20 18:53 / Sodium Chloride IV 0 units/hr .Q0M P[facility] 0 mls/hr Titration Protocol Per Protocol Amiodarone HCl 450 mg/ 250 mls @ 16.667 mls/hr 04/24/20 22:00 04/24/20 22:03 Dextrose/Water IV 04/25/20 15:59 0.5 mg/min .Q15H [facility] 16.667 mls/hr Administration Protocol 0.5 MG/MIN Cisatracurium Besylate 200 mg/ 200 mls @ 12.516 mls/hr 04/24/20 16:15 04/24/20 15:51 Sodium Chloride IV 2 mcg/kg/min .[id number] P[facility]Y 12.516 mls/hr Administration Protocol 2 MCG/KG/MIN Levothyroxine Sodium 50 mcg 04/12/20 06:30 04/24/20 06:22 Levothyroxine 50 Mcg Tab PO 50 mcg DAILY@0630 [facility] Administration Melatonin 5 mg 04/19/20 19:45 04/19/20 20:08 Melatonin 5 Mg Tablet PO 5 mg HS PRN Administration Insomnia Methylprednisolone Sodium Succinate 60 mg 04/21/20 12:00 04/24/20 17:44 Methylprednisolone Sod Succi 125 Mg/2 Ml Vial IV 60 mg Q6HR [facility] Administration Metoprolol Tartrate 5 mg 04/21/20 21:00 04/24/20 21:34 Metoprolol Tartrate 5 Mg/5 Ml Vial IVP 5 mg Q6H [facility] Administration Miscellaneous Information 1 each 04/14/20 05:56 Potassium Replacement Protocol 1 Each Misc MISCELLANE DAILY PRN Per Protocol Protocol Miscellaneous Information 1 each 04/24/20 18:43 Potassium Replacement Protocol 1 Each Misc MISCELLANE DAILY PRN Per Protocol Protocol Morphine Sulfate 2 mg 04/23/20 08:34 04/24/20 12:56 Morphine Sulfate 2 Mg/Ml Syringe IVP 2 mg Q6H PRN Administration Pain/Discomfort Multivitamins 1 each 04/12/20 12:00 04/24/20 12:09 Multivitamins, Thera 1 Each Tab PO 1 each DAILY@1200 [facility] Administration Naloxone HCl 0.2 mg 04/11/20 16:48 Naloxone 0.4 Mg/Ml 1 Ml Vial IV Q2M PRN Opioid Reversal Ondansetron HCl 4 mg 04/15/20 20:08 Ondansetron 4 Mg/2 Ml Vial IVP Q6HR PRN Nausea And Vomiting Thiamine HCl 100 mg 04/12/20 12:00 04/24/20 12:09 Thiamine 100 Mg Tab PO 100 mg DAILY@1200 [facility] Administration Zinc Sulfate 220 mg 04/12/20 09:00 04/24/20 10:33 Zinc Sulfate 220 Mg Cap PO 220 mg DAILY PERRY Administration Objective - Vital Signs Vital signs: Vital Signs Temp 97.6 F 04/24/20 16:00 Pulse 128 H 04/24/20 18:00 Resp 30 H 04/24/20 18:00 BP 93/49 04/24/20 18:00 Pulse Ox 95 04/24/20 18:00 Intake & Output 04/23/20 04/24/20 04/24/20 18:59 06:59 18:59 Intake Total 1603 1641 2818.619 Output Total 2525 735 450 Balance -427 795 1970.619 Weight 103.9 kg 104.3 kg 104.3 kg Intake: IV 1503 1641 1370 Fat Emulsion 20% 250 ml @ 63 221 20.833 mls/hr IV DAILY@ 1600 [facility] Rx#:[id number] Fluconazole in NaCl,Iso- 100 100 Osm 100 mg In Saline 1 50ml.bag @ 50 mls/hr IVPB DAILY [facility] Rx#:[id number] Mvi, Adult No.4 with Vit 330 K 10 ml Trace (Conc-1Ml/ Dose) 1 ml In Amino Acid 5%-D20w+Lytes*E* 1,000 ml @ 30 mls/hr IV .Q24H [facility] Rx#:[id number] Mvi, Adult No.4 with Vit 60 720 570 K 10 ml Trace (Conc-1Ml/ Dose) 1 ml In Amino Acid 5%-D20w+Lytes*E* 1,000 ml @ 60 mls/hr IV .BY DURATION [facility] Rx#: [id number] Piperacillin-Tazobactam 3 200 100 100 .375 gm In Sodium Chloride 0.9% 100 ml @ 25 mls/hr IVPB Q8H [facility] Rx#: [id number] Sodium Chloride 0.9% 1, 300 000 ml @ 150 mls/hr IV . Q6H40M [facility] Rx#:[id number] Sodium Chloride 0.9% 1, 450 600 600 000 ml @ 50 mls/hr IV . Q20H [facility] Rx#:[id number] Intake, IV Titration 1428.619 Amount Diltiazem 125 mg In 103.083 Sodium Chloride 0.9% 100 ml @ 5 MG/HR 5 mls/hr IV .Q24H [facility] Rx#:[id number] Insulin Regular 100 unit 60.717 In Sodium Chloride 0.9% 100 ml @ Per Protocol IV .Q0M [facility] Rx#:[id number] Mvi, Adult No.4 with Vit 1011 K 10 ml Trace (Conc-1Ml/ Dose) 1 ml In Amino Acid 5%-D20w+Lytes*E* 1,000 ml @ 60 mls/hr IV .BY DURATION [facility] Rx#: [id number] propofoL 1,000 mg In 253.819 Empty Bag 1 bag @ Titrate IV .Q0M [facility] Rx#: [id number] Oral 100 Tube Feeding 20 Output: Urine 2525 735 450 Other: Voiding Method Indwelling Catheter Indwelling Catheter Indwelling Catheter ABP, PAP, CO, CI - Last Documented Arterial Blood Pressure 98/53 - Exam -GENERAL: The patient is alert and oriented x3, generally weak , on BiPAP HEENT: Pupils are round and equally reacting to light. EOMI. No scleral icterus. No conjunctival pallor. Normocephalic, atraumatic. No pharyngeal erythema. No thyromegaly. CARDIOVASCULAR: S1 and S2 present. No murmurs, rubs, or gallops. -PULMONARY: Chest is clear to auscultation, bilateral crepitation ABDOMEN: Soft, nontender, nondistended, normoactive bowel sounds. No palpable organomegaly. MUSCULOSKELETAL: No joint swelling or deformity. EXTREMITIES: No cyanosis, clubbing, or pedal edema. NEUROLOGICAL: Gross neurological examination did not reveal any focal deficits. SKIN: No rashes. no petechiae. - Labs CBC & Chem 7: 04/24/20 04:51 04/24/20 17:03 Labs: Abnormal Lab Results - Last 24 Hours (Table) 04/23/20 04/24/20 04/24/20 Range/Units 20:35 04:51 04:51 WBC 28.6 H (3.8-10.6) k/uL Neutrophils # 26.8 H (1.3-7.7) k/uL Lymphocytes # 0.4 L (1.0-4.8) k/uL Monocytes # 1.1 H (0-1.0) k/uL ABG pH (7.35-7.45) ABG pCO2 (35-45) mmHg ABG pO2 (83-108) mmHg ABG HCO3 (21-25) mmol/L ABG Total CO2 (19-24) mmol/L ABG O2 Saturation (94-97) % Potassium (3.5-5.1) mmol/L BUN 25 H (7-17) mg/dL Creatinine 0.46 L (0.52-1.04) mg/dL Glucose 230 H (74-99) mg/dL POC Glucose (mg/dL) 185 H (75-99) mg/dL Calcium 7.7 L (8.4-10.2) mg/dL Magnesium 2.4 H (1.6-2.3) mg/dL AST 44 H (14-36) U/L Total Protein 4.9 L (6.3-8.2) g/dL Albumin 2.1 L (3.5-5.0) g/dL 04/24/20 04/24/20 04/24/20 Range/Units 06:35 09:54 11:56 WBC (3.8-10.6) k/uL Neutrophils # (1.3-7.7) k/uL Lymphocytes # (1.0-4.8) k/uL Monocytes # (0-1.0) k/uL ABG pH 7.20 L (7.35-7.45) ABG pCO2 76 H* (35-45) mmHg ABG pO2 (83-108) mmHg ABG HCO3 30 H (21-25) mmol/L ABG Total CO2 32 H (19-24) mmol/L ABG O2 Saturation 91.7 L (94-97) % Potassium (3.5-5.1) mmol/L BUN (7-17) mg/dL Creatinine (0.52-1.04) mg/dL Glucose (74-99) mg/dL POC Glucose (mg/dL) 204 H 323 H (75-99) mg/dL Calcium (8.4-10.2) mg/dL Magnesium (1.6-2.3) mg/dL AST (14-36) U/L Total Protein (6.3-8.2) g/dL Albumin (3.5-5.0) g/dL 04/24/20 04/24/20 04/24/20 Range/Units 11:58 13:02 13:51 WBC (3.8-10.6) k/uL Neutrophils # (1.3-7.7) k/uL Lymphocytes # (1.0-4.8) k/uL Monocytes # (0-1.0) k/uL ABG pH (7.35-7.45) ABG pCO2 (35-45) mmHg ABG pO2 (83-108) mmHg ABG HCO3 (21-25) mmol/L ABG Total CO2 (19-24) mmol/L ABG O2 Saturation (94-97) % Potassium (3.5-5.1) mmol/L BUN (7-17) mg/dL Creatinine (0.52-1.04) mg/dL Glucose (74-99) mg/dL POC Glucose (mg/dL) 308 H 337 H 247 H (75-99) mg/dL Calcium (8.4-10.2) mg/dL Magnesium (1.6-2.3) mg/dL AST (14-36) U/L Total Protein (6.3-8.2) g/dL Albumin (3.5-5.0) g/dL 04/24/20 04/24/20 04/24/20 Range/Units 14:59 15:32 16:09 WBC (3.8-10.6) k/uL Neutrophils # (1.3-7.7) k/uL Lymphocytes # (1.0-4.8) k/uL Monocytes # (0-1.0) k/uL ABG pH 7.30 L (7.35-7.45) ABG pCO2 54 H (35-45) mmHg ABG pO2 66 L (83-108) mmHg ABG HCO3 26 H (21-25) mmol/L ABG Total CO2 28 H (19-24) mmol/L ABG O2 Saturation 90.7 L (94-97) % Potassium (3.5-5.1) mmol/L BUN (7-17) mg/dL Creatinine (0.52-1.04) mg/dL Glucose (74-99) mg/dL POC Glucose (mg/dL) 258 H 192 H (75-99) mg/dL Calcium (8.4-10.2) mg/dL Magnesium (1.6-2.3) mg/dL AST (14-36) U/L Total Protein (6.3-8.2) g/dL Albumin (3.5-5.0) g/dL 04/24/20 04/24/20 04/24/20 Range/Units 16:58 17:03 18:15 WBC (3.8-10.6) k/uL Neutrophils # (1.3-7.7) k/uL Lymphocytes # (1.0-4.8) k/uL Monocytes # (0-1.0) k/uL ABG pH (7.35-7.45) ABG pCO2 (35-45) mmHg ABG pO2 (83-108) mmHg ABG HCO3 (21-25) mmol/L ABG Total CO2 (19-24) mmol/L ABG O2 Saturation (94-97) % Potassium 3.0 L (3.5-5.1) mmol/L BUN (7-17) mg/dL Creatinine (0.52-1.04) mg/dL Glucose (74-99) mg/dL POC Glucose (mg/dL) 175 H 141 H (75-99) mg/dL Calcium (8.4-10.2) mg/dL Magnesium (1.6-2.3) mg/dL AST (14-36) U/L Total Protein (6.3-8.2) g/dL Albumin (3.5-5.0) g/dL Microbiology - Last 24 Hours (Table) 04/21/20 23:37 Blood Culture - Preliminary Blood No Growth after 48 hours 04/22/20 09:00 Urine Culture - Final Urine,Catheterized Assessment and Plan Assessment: COVID 19 pneumonia Acute hypoxic respiratory failure-status post intubation and mechanical ventilation New onset A. fib with RVR Increased d-dimer without evidence of PE Hyponatremia Leukocytosis Elevated and she telemetry markers Hypertension Hypothyroidism History of bilateral posterior tibial tendon repair Obesity with BMI of 35 Plan: This is a pleasant 69 years old female with Covid pneumonia and hypoxic res piratory failure. Continue with oxygen supplementation as needed, intubated on mechanical ventilation with pulmonary/critical care team and follow the case closely. With her inflammatory markers. Continue with Solu-Medrol and Lovenox and zinc and vitamin C. Monitored WBC Labs and medication were reviewed.. Continue same treatment. Continue with symptomatic treatment. Resume home medication. Monitor lytes and vitals. DVT and GI prophylaxis. Further recommendations as per clinical course of the patient DVT prophylaxis: Subcutaneous Lovenox GI Prophylaxis: Pepcid Prognosis is guarded
[2020-04-24 23:11] LABS: Glucose,Whole Blood 188 mg/dL (75-99)
[2020-04-25] MEDS: methylPREDNISolone SOD SUCCI 125 MG/2 ML VIAL IV SCH ×5 (00:12→23:17)
[2020-04-25 00:19] LABS: Glucose,Whole Blood 140 mg/dL (75-99)
[2020-04-25] MEDS: INSULIN REGULAR 100 UNIT in SODIUM CHLORIDE 0.9% 100 ML IV SCH (00:31)
[2020-04-25 01:06] LABS: Glucose,Whole Blood 160 mg/dL (75-99)
[2020-04-25] MEDS: DILTIAZEM 125 MG in SODIUM CHLORIDE 0.9% 100 ML IV SCH (01:45)
[2020-04-25] MEDS: PIPERACILLIN-TAZOBACTAM 3.375 GM in SODIUM CHLORIDE 0.9% 100 ML IVPB SCH ×3 (01:45→17:53)
[2020-04-25 02:17] LABS: Glucose,Whole Blood 127 mg/dL (75-99)
[2020-04-25 03:09] LABS: Glucose,Whole Blood 133 mg/dL (75-99)
[2020-04-25] MEDS: METOPROLOL TARTRATE 5 MG/5 ML VIAL IVP SCH ×2 (03:10→10:15)
[2020-04-25 04:09] LABS: Glucose,Whole Blood 150 mg/dL (75-99)
[2020-04-25 05:21] LABS: ABG Base Excess -0.1 mmol/L; ABG HCO3 30 mmol/L (21-25); ABG Oxygen Saturation 97.2 % (94-97); ABG PO2 107 mmHg (83-108); ABG TCO2 33 mmol/L (19-24)
[2020-04-25 05:21] LABS: Glucose,Whole Blood 133 mg/dL (75-99)
[2020-04-25] MEDS: SODIUM CHLORIDE 0.9% 1,000 ML IV SCH ×2 (05:24→23:18)
[2020-04-25 05:39] LABS: Basophils # (A) 0.1 k/uL (0-0.2); Basophils % (A) 0 %; Eosinophils % (A) 0 %; HCT 47.9 % (34.0-46.0); HGB 14.5 gm/dL (11.4-16.0); Hypochromasia Marked; Lymphocytes # (A) 0.6 k/uL (1.0-4.8); Lymphocytes % (A) 1 %; MCH 30.8 pg (25.0-35.0); MCHC 30.3 g/dL (31.0-37.0); Macrocytosis Slight; Mean Platelet Volume 7.8; Monocytes # (A) 1.1 k/uL (0-1.0); Monocytes % (A) 3 %; Neutrophils # (A) 38.1 k/uL (1.3-7.7); Neutrophils % (A) 95 %; Platelet Count 336 k/uL (150-450); RBC 4.71 m/uL (3.80-5.40); RDW 13.3 % (11.5-15.5); WBC 40.1 k/uL (3.8-10.6)
[2020-04-25 05:42] LABS: Albumin 2.3 g/dL (3.5-5.0); Calcium 7.8 mg/dL (8.4-10.2); Magnesium 2.5 mg/dL (1.6-2.3); Phosphorus 8.2 mg/dL (2.5-4.5); Potassium 5.5 mmol/L (3.5-5.1); Total Bilirubin 0.7 mg/dL (0.2-1.3); Total Protein 5.4 g/dL (6.3-8.2)
[2020-04-25 05:45] LABS: MCV 101.8 fL (80.0-100.0)
[2020-04-25 05:46] LABS: C Reactive Protein 63.7 mg/L (<10.0)
[2020-04-25 05:47] LABS: D-Dimer 6.31 mg/L FEU (<0.60)
[2020-04-25 05:50] LABS: Allen Test Performed? no
[2020-04-25] MEDS ORDERED: SODIUM BICARB 8.4% 50 ML SYR (1 MEQ/ML) IV STA ×2 (06:26→10:02)
[2020-04-25] MEDS ORDERED: SODIUM CHLORIDE 0.9% 1,500 ML IV ONE (06:36)
[2020-04-25] MEDS: LEVOTHYROXINE 50 MCG TAB PO SCH (06:39)
[2020-04-25 07:05] LABS: Glucose,Whole Blood 121 mg/dL (75-99)
[2020-04-25] MEDS: ALBUTEROL HFA INHALER INHALATION SCH ×4 (07:25→21:06)
--- NOTE | 2020-04-25 08:13 | XR ---
EXAMINATION TYPE: XR chest 1V portable DATE OF EXAM: 04/25/2020 COMPARISON: Prior chest x-ray 04/24/2020 HISTORY: Intubated TECHNIQUE: Single frontal view of the chest is obtained. FINDINGS: Endotracheal tube and NG tube are overlying appropriate positions. Bilateral groundglass o pacity, airspace disease is stable. Left-sided PICC line is again noted. No evident pneumothorax or s izable effusion. Cardiac mediastinal silhouette is unchanged. Aorta is dense. IMPRESSION: Findings are similar to prior exam, correlate for pneumonia, edema
[2020-04-25 08:23] LABS: Glucose,Whole Blood 113 mg/dL (75-99)
[2020-04-25 08:58] LABS: Glucose,Whole Blood 115 mg/dL (75-99)
[2020-04-25 09:09] LABS: ABG Base Excess 1.4 mmol/L; ABG HCO3 31 mmol/L (21-25); ABG Oxygen Saturation 97.6 % (94-97); ABG PO2 103 mmHg (83-108); ABG TCO2 34 mmol/L (19-24)
[2020-04-25 09:12] LABS: ABG PH 7.11 (7.35-7.45)
[2020-04-25 09:13] LABS: ABG PCO2 96 mmHg (35-45); Allen Test Performed? no
[2020-04-25] MEDS: FAMOTIDINE 20 MG/2 ML VIAL IV SCH (09:20)
[2020-04-25] MEDS: CHOLECALCIFEROL 1,000 UNIT TAB PO SCH (09:20)
[2020-04-25] MEDS: ZINC SULFATE 220 MG CAP PO SCH (09:20)
[2020-04-25] MEDS: ASCORBIC ACID 500 MG TAB PO SCH (09:21)
[2020-04-25] MEDS: LOSARTAN-HCTZ 50-12.5 MG 1 EACH TAB PO SCH (09:21)
[2020-04-25] MEDS: CHLORHEXIDINE GLUCONATE 15 ML CUP MUCOUS MEM SCH ×2 (09:22→20:46)
[2020-04-25] MEDS: ENOXAPARIN 60 MG/0.6 ML SYRINGE SQ SCH ×2 (09:22→20:46)
[2020-04-25] MEDS ORDERED: DEXTROSE 50% SYRINGE 50 ML IVP STA (10:01)
[2020-04-25] MEDS ORDERED: INSULIN REGULAR 100 UNIT/ML VIAL IV ONE (10:01)
[2020-04-25] MEDS ORDERED: FUROSEMIDE 10 MG/ML 10 ML VIAL IV STA (10:03)
[2020-04-25] MEDS: FLUCONAZOLE IN NACL,ISO-OSM 100 MG in SALINE 1 50ML.BAG IVPB SCH (10:15)
--- NOTE | 2020-04-25 10:28 | P.NPCON ---
History of Present Illness - Reason for Consult acute renal failure - History of Present Illness Reason for consultation: Acute kidney injury History of present illness: Patient is a 69-year-old female seen in renal consultation for acute kidney injury. Patient presented to the hospital on 04/11/2020 shortness of breath. She underwent a CTA on April 13 which revealed no evidence of PE and findings suggestive of covert. Patient has remained quite short of breath requiring high amounts of oxygen including BiPAP as of yesterday. Her respiratory status worsened yesterday and she was subsequently intubated. She also wanted A. fib with RVR yesterday morning and is currently maintained on amiodarone drip. She was also on Cardizem drip but was discontinued as her blood pressure has been on the lower side. She was receiving TPN but is now receiving tube feeds via OG tube. She is maintained on Hyzaar. Her urine output is now 0-10 mL an hour. She became quite hypotensive yesterday and her blood pressures at this morning was 102/57. She's not on any vasopressors at this time. She is intubated and is on 90% FiO2. She did receive 1500 mL bolus of normal saline this morning and had also received 1 L yesterday. In terms of maintenance fluids she is on normal saline at 50 mL an hour. Her potassium was low yesterday and was replaced twice. Potassium this morning was 5.5. Vital signs are stable. General: The patient appeared well nourished and normally developed. HEENT: Intubated. LUNGS: Breath sounds decreased. HEART: Regular rate and rhythm. ABDOMEN: Soft, obese. EXTREMITITES: Trace edema. Past Medical History Past Medical History: Hypertension, Thyroid Disorder History of Any Multi-Drug Resistant Organisms: None Reported Past Surgical History: Hysterectomy Additional Past Surgical History / Comment(s): bilat post tib tendon repair, Past Anesthesia/Blood Transfusion Reactions: No Reported Reaction Smoking Status: Former smoker Medications and Allergies Home Medications Medication Instructions Recorded Confirmed Type Levothyroxine Sodium [Synthroid] 50 mcg PO DAILY 04/11/20 04/11/20 History Losartan/Hydrochlorothiazide 1 tab PO DAILY 04/11/20 04/11/20 History [Losartan-Hctz 50-12.5 mg Tab] Allergies Allergy/AdvReac Type Severity Reaction Status Date / Time No Known Allergies Allergy Verified 04/11/20 17:17 Physical Exam Vitals: Vital Signs Temp Pulse Resp BP Pulse Ox 04/25/20 08:00 97.6 F 66 36 H 102/57 97 04/25/20 07:00 65 30 H 94/55 97 04/25/20 06:00 63 30 H 95/60 96 04/25/20 05:00 60 30 H 92/56 95 04/25/20 04:00 96.1 F L 112 H 30 H 91/61 94 L 04/25/20 03:00 101 H 30 H 95/61 94 L 04/25/20 02:00 108 H 30 H 101/63 95 04/25/20 01:00 104 H 30 H 98/63 95 04/25/20 00:00 94.8 F L 110 H 30 H 109/68 95 04/24/20 23:00 108 H 30 H 102/69 94 L 04/24/20 22:00 96 30 H 96/70 94 L 04/24/20 21:00 120 H 30 H 133/88 94 L 04/24/20 20:00 123 H 30 H 105/70 94 L 04/24/20 19:00 125 H 30 H 84/58 95 04/24/20 18:00 128 H 30 H 93/49 95 04/24/20 17:00 126 H 30 H 132/85 96 04/24/20 16:00 97.6 F 94 23 93/80 91 L 04/24/20 15:00 140 H 22 100/62 89 L 04/24/20 14:00 144 H 30 H 111/78 91 L 04/24/20 13:00 158 H 32 H 130/113 90 L 04/24/20 12:00 163 H 31 H 125/110 90 L 04/24/20 11:00 165 H 28 H 140/98 89 L Intake and Output 04/24/20 04/25/20 04/25/20 22:59 06:59 14:59 Intake Total 1262.238 964.581 7962.002 Output Total 820 315 10 Balance 442.238 389.964 5717.002 Intake: IV 735.32 556.8 1556 [place] flush 12 24 6 Amiodarone 360 mg In 133.32 Dextrose 5% in Water 200 ml @ 1 MG/MIN 33.333 mls/ hr IV .Q6H [facility] Rx#: [id number] Amiodarone 450 mg In 132.8 Dextrose 5% in Water 250 ml @ 0.5 MG/MIN 16.667 mls/hr IV .Q15H [facility] Rx#: [id number] Mvi, Adult No.4 with Vit 90 K 10 ml Trace (Conc-1Ml/ Dose) 1 ml In Amino Acid 5%-D20w+Lytes*E* 1,000 ml @ 60 mls/hr IV .BY DURATION [facility] Rx#: [id number] Piperacillin-Tazobactam 3 100 .375 gm In Sodium Chloride 0.9% 100 ml @ 25 mls/hr IVPB Q8H [facility] Rx#: [id number] Sodium Chloride 0.9% 1, 400 400 50 000 ml @ 50 mls/hr IV . Q20H [facility] Rx#:[id number] Sodium Chloride 0.9% 1, 1500 500 ml @ 999 mls/hr IV . Q1H31M [facility] Rx#:[id number] Intake, IV Titration 406.918 220.128 136.002 Amount Cisatracurium 200 mg In 64.457 32.855 Sodium Chloride 0.9% 180 ml @ 2 MCG/KG/MIN 12.516 mls/hr IV .[id number] [facility] Rx #:[id number] Diltiazem 125 mg In 95.25 112.25 86.25 Sodium Chloride 0.9% 100 ml @ 5 MG/HR 5 mls/hr IV .Q24H [facility] Rx#:[id number] Insulin Regular 100 unit 36.781 18.702 In Sodium Chloride 0.9% 100 ml @ Per Protocol IV .Q0M [facility] Rx#:[id number] propofoL 1,000 mg In 210.43 89.176 16.897 Empty Bag 1 bag @ Titrate IV .Q0M [facility] Rx#: [id number] Tube Feeding 60 120 40 Other 60 60 30 Output: Gastric Drainage 450 Urine 370 315 10 Other: Voiding Method Indwelling Catheter Indwelling Catheter # Bowel Movements 1 Weight 106.3 kg ABP, PAP, CO, CI - Last 8 Hours Arterial Blood Pressure 101/44 Arterial Blood Pressure 91/36 Arterial Blood Pressure 94/42 Results - Lab Results Most recent lab results ABG pH 7.11 (7.35-7.45) L* 04/25/20 09:02 ABG pCO2 96 mmHg (35-45) H* 04/25/20 09:02 ABG pO2 103 mmHg (83-108) 04/25/20 09:02 ABG HCO3 31 mmol/L (21-25) H 04/25/20 09:02 ABG O2 Saturation 97.6 % (94-97) H 04/25/20 09:02 Calcium 7.8 mg/dL (8.4-10.2) L 04/25/20 05:00 Phosphorus 8.2 mg/dL (2.5-4.5) H 04/25/20 05:00 Magnesium 2.5 mg/dL (1.6-2.3) H 04/25/20 05:00 04/25/20 05:00 04/25/20 05:00 Assessment and Plan Plan: Assessment: 1. Acute kidney injury secondary to ATN secondary to hypotension, hemodynamic instability and infection. Baseline creatinine near 1 and is 1.34 today. Oliguric. 2. Acute hypercapnic respiratory failure. Currently on 90% FiO2. 3. Hyperkalemia secondary to acute kidney injury, hyzaar and potassium supplementation she received yesterday. 4. COVID-19 infection. 5. A. fib with RVR maintained on amiodarone drip. Plan: Maintain normal saline at 50 mL an hour. Maintain tube feeds. Stop Hyzaar. Lasix 80 mg IV once today. 10 units of IV regular insulin with an amp of D50 now. Repeat potassium level this evening. Avoid nephrotoxins. Wean FiO2. Dose of Lovenox to be adjusted for renal function. If no improvement in renal function and urine output in the next 24 hours, will initiate renal replacement therapy. Thank you for the consultation. I will continue to follow the patient with you during her hospital stay.
[2020-04-25] MEDS: HYDROmorphone 1 MG/ML 1 ML SYRINGE IVP PRN ×2 (11:27→18:32)
[2020-04-25 11:36] LABS: Glucose,Whole Blood 154 mg/dL (75-99)
[2020-04-25] MEDS: FOLIC ACID 1 MG TAB PO SCH (11:42)
[2020-04-25] MEDS: THIAMINE 100 MG TAB PO SCH (11:42)
[2020-04-25] MEDS: MULTIVITAMINS, THERA 1 EACH TAB PO SCH (11:42)
[2020-04-25] MEDS: INSULIN ASPART (NovoLOG) 100 UNIT/ML VIAL SQ SCH ×4 (12:09→23:33)
--- NOTE | 2020-04-25 12:33 | P.PN ---
Subjective Progress Note Date: 04/25/20 Principal diagnosis: CoVID 19 pneumonia This 69-year-old white female patient who was admitted to the hospital on 04/11/2020 when she came in for evaluation of 1 week history of cough, fever, shortness of breath, decreased appetite and intermittent episodes of diarrhea. Patient was diagnosed with COVID 19 pneumonia, this was done via outpatient testing through the health Department. Patient initially presented for [facility], she was hypoxemic with a pulse ox in the 80s and she was placed on high flow oxygen and transferred to the [facility]. CT a ngiogram of the chest showed no evidence of pulmonary embolism, however it showed evidence of bilateral interstitial infiltrates consistent with COVID 19 pneumonitis. Patient completed her Remdesivir treatment on 04/16/2020, she received 2 units of convalescent plasma, she remains on IV steroids with IV Solu-Medrol 40 mg every 12 hours. She is on point and was seen at a rate of 75 ML per hour. In view of her worsening hypoxemia patient was transferred to the intensive care unit, she is currently on BiPAP support with pressures of 14/6, and FiO2 of 100%, patient has been pretty much BiPAP dependent, her pulse ox is 82-84%, this morning patient had episode of SVT with a heart rate up to 250, patient has been afebrile, T-max in last 24 hours was 102.2F. Today's chest x- ray still shows interstitial infiltrates in the mid and lower lungs that are becoming more confluent in the left base. His labs have been reviewed, showing white blood cell, 29.7, hemoglobin of 16.9, lymphocyte count is 1.1, and neutrophil count is 27, fibrinogen level is 963, her last d-dimer was yesterday at 3.01, sodium is 134, the rest a large joints were unremarkable, B1 is 23 creatinine 0.73, total bilirubin is 1.5, her liver enzymes have worsened, AST 70, ALT is 56, alk phos is 135, LDH is 2500, CRP is 144, patient's interleukin-6 level was significantly elevated at 57.1. Patient remains on Lovenox 60 mg twice daily. On 04/22/2020 patient seen in follow-up in intensive care unit, she is resting in bed, she was on BiPAP support with pressures of 16 and 8 and FiO2 of 100%, and she was switched to Airvo this morning a little while ago, with oxygen for 60 L/m and FiO2 of 95%, however patient quickly started desaturating, she is becoming obviously cyanotic, and short of breath. She will be placed back on BiPAP support, she remains BiPAP support dependent for the most part. She is currently on 0.9 normal saline at a rate of 50 ML per hour. She has not been able to take much in the way of oral nutrition related to her severe hypoxemia, and BiPAP dependence. Patient is awake and alert, oriented 3, she is answering questions appropriately, slightly tachypneic, but appears to be in no acute distress, she has been on bedrest for the most part. No cough, no chest pain, no palpitations. She has been afebrile. Yesterday we started her on Zosyn for empiric antibiotic coverage, however her pro-calcitonin came back negative at 0.07, however today's pro-calcitonin came back at 0.39. Nursing staff stated that patient's urine has been quite cloudy and turbid-looking, urinalysis revealed trace protein, large urine, 1+ ketones, small amount of leuks, white blood cells, and occasional yeast. No nausea or vomiting. Today's chest x-ray showing bilateral multifocal reticulonodular infiltrates mid to lower lung with basilar organizing consolidations, findings consistent with Coumadin continued infection, no change from one day earlier. Blood cultures have been negative, patient has had no fever. Nursing staff confirmed CODE STATUS with the patient and patient was to continue to be full code at this time. We will update her nephew who is a retired physician and the patient's condition per patient's request. On 04/23/2020 patient seen in follow-up in intensive care unit, she is currently back on BiPAP, pressures of 16/8, and FiO2 of the 100%, her pulse ox is 93%, she is currently on 0.9 normal saline at a rate of 1:15 per hour, yesterday we initiate patient on TPN for nutritional support which is currently running at 38 with a goal of increasing it today to 60 mL per hour, and lipids 12 hours on 12 hours off. Patient has been afebrile, hemodynamically she has been stable, in sinus mechanism, appears to be in no acute distress, but does experience episodes of restlessness, and anxiety related to severe hypoxemia. She has been given Ativan, however patient can be switched back to her home dose of Xanax on as needed basis and we will add some morphine for shortness of breath, anxiety and breathlessness. Today's chest x-ray has been reviewed showing fine interst itial infiltrates primarily in the mid and lower lungs, slight improvement in aeration at the left lower lung, yesterday we started the patient on Zosyn for possibility of a bacterial infection possibly in the urine, urine culture still pending, there is a possibility of yeast in the urine cultures, and we will add IV Diflucan in the meantime as well. His labs have been reviewed, showing trending leukocytosis, white blood cell count up to 70, hemoglobin is 15.4, fibrinogen level down slightly to 866, d-dimer is trending back up to 5.63 on today's labs, sodium is 137, potassium 4.2, chloride is 108, BUN is 22, creatinine 0.50, LDH is pending, CRP is still significantly elevated is 163.9. The patient is seen today 04/24/2020 in follow-up in the intensive care unit. She has been on BiPAP 22/11 on 100% FiO2 throughout the night. She is nourished with TPN at 60 ML's per hour. .9 normal saline at 50 MLS per hour. Upon evaluation early this morning the patient had been off BiPAP trying some breakfast however she was desaturating significantly and placed back on the BiPAP and has been slow to recover. O2 saturations 79-80% Tachypneic. Tachycardic in the 160s-170s. The decision was made to go ahead and intubate her per anesthesia and placed on mechanical ventilator. She is currently on assist control mode, rate of 24. Tidal volume 350. FiO2 100% and a PEEP of 5. She was sedated with propofol, given a dose of Nimbex. Left radial arterial line placed. She has a dual lumen PICC in the left upper extremity. Chest x- ray continues to revealed patchy bilateral groundglass densities. She has received 2 units of convalescent plasma. She completed Remdesivir. Blood cultures reveal no growth. Urine culture revealed no growth. She was given 3 days of Zosyn empirically. White count 28.6. Hemoglobin 14.5. Sodium 137. Potassium 3.5. Creatinine 0.46. The patient is seen today 04/25/2020 and follow-up in the intensive care unit. She remains intubated on the mechanical ventilator. She was intubated yesterday. Current settings are assist-control of 30, tidal volume 350, FiO2 100% and a PEEP of 15. Morning blood gases reveal a P O2 of 107, pCO2 104 and a pH of 7.06. Her rate was increased at 36. She was given 2 A of bicarb. Given 1.5 L of fluid. Follow-up blood gases revealed a pO2 of 103, pCO2 of 96 and a pH of 7.11. Respiratory rate increased to 40, tidal volume increased to 400 and the FiO2 decreased to 90%. She remains on 0.9 normal saline at 50 MLS per hour. Propofol at 20 mcg/kg/m. Nimbex at 1.5 L micrograms per kilogram per minute. She is on amiodarone at 0.5 mg/m. Her rate is better controlled today. Chest x-ray with similar findings of bilateral groundglass opacity, air space disease which is stable compared to previous. She has received 2 units of convalescent plasma. She completed Remdesivir. Blood cultures reveal no growth. Urine culture revealed no growth. She was given 3 days of Zosyn empirically. Remains on Solu-Medrol 60 mg every 6 hours. Objective - Vital Signs Vital signs: Vital Signs Temp 97.6 F 04/25/20 08:00 Pulse 74 04/25/20 11:00 Resp 40 H 04/25/20 11:00 BP 112/67 04/25/20 11:00 Pulse Ox 97 04/25/20 08:00 Intake & Output 04/24/20 04/25/20 04/25/20 18:59 06:59 18:59 Intake Total 2818.653 5206.630 2840.083 Output Total 900 555 15 Balance 0917.973 7821.155 2170.083 Weight 104.3 kg 106.3 kg 106.3 kg Intake: IV 1370 1002.12 1915 [place] flush 36 15 Amiodarone 360 mg In 133.32 Dextrose 5% in Water 200 ml @ 1 MG/MIN 33.333 mls/ hr IV .Q6H [facility] Rx#: [id number] Amiodarone 450 mg In 132.8 Dextrose 5% in Water 250 ml @ 0.5 MG/MIN 16.667 mls/hr IV .Q15H [facility] Rx#: [id number] Fluconazole in NaCl,Iso- 100 50 Osm 100 mg In Saline 1 50ml.bag @ 50 mls/hr IVPB DAILY [facility] Rx#:[id number] Mvi, Adult No.4 with Vit 570 K 10 ml Trace (Conc-1Ml/ Dose) 1 ml In Amino Acid 5%-D20w+Lytes*E* 1,000 ml @ 60 mls/hr IV .BY DURATION [facility] Rx#: [id number] Piperacillin-Tazobactam 3 100 100 100 .375 gm In Sodium Chloride 0.9% 100 ml @ 25 mls/hr IVPB Q8H [facility] Rx#: [id number] Sodium Bicarb 50 Sodium Chloride 0.9% 1, 600 600 200 000 ml @ 50 mls/hr IV . Q20H [facility] Rx#:[id number] Sodium Chloride 0.9% 1, 1500 500 ml @ 999 mls/hr IV . Q1H31M [facility] Rx#:[id number] Intake, IV Titration 1428.653 397.035 200.083 Amount Cisatracurium 200 mg In 64.457 46.936 Sodium Chloride 0.9% 180 ml @ 2 MCG/KG/MIN 12.516 mls/hr IV .[id number] [facility] Rx #:[id number] Dextrose 5% in Water 100 50 ml @ 618 mls/hr IV .Q10M [facility] with Amiodarone 150 mg Rx#:[id number] Diltiazem 125 mg In 103.083 112.25 86.25 Sodium Chloride 0.9% 100 ml @ 5 MG/HR 5 mls/hr IV .Q24H [facility] Rx#:[id number] Insulin Regular 100 unit 60.751 20.722 In Sodium Chloride 0.9% 100 ml @ Per Protocol IV .Q0M [facility] Rx#:[id number] Mvi, Adult No.4 with Vit 1011 K 10 ml Trace (Conc-1Ml/ Dose) 1 ml In Amino Acid 5%-D20w+Lytes*E* 1,000 ml @ 60 mls/hr IV .BY DURATION [facility] Rx#: [id number] propofoL 1,000 mg In 253.819 199.606 16.897 Empty Bag 1 bag @ Titrate IV .Q0M [facility] Rx#: [id number] Tube Feeding 20 160 40 Other 120 30 Output: Gastric Drainage 450 Urine 450 555 15 Other: Voiding Method Indwelling Catheter Indwelling Catheter # Bowel Movements 1 ABP, PAP, CO, CI - Last Documented Arterial Blood Pressure 132/52 - Exam GENERAL EXAM: Intubated, sedated 69-year-old female patient, critically ill. HEAD: Normocephalic. EYES: Sluggish reaction of pupils, equal size. NOSE: Clear with pink turbinates. THROAT: Oral endotracheal and gastric tube secured in place. No erythema or exudates. NECK: No masses, no JVD. CHEST: No chest wall deformity. LUNGS: Equal air entry with crackles in the bilateral posterior bases. CVS: S1 and S2 normal with no audible murmur, irregular rhythm. Tachycardic. ABDOMEN: No hepatosplenomegaly, normal bowel sounds, no guarding or rigidity. SPINE: No scoliosis or deformity SKIN: No rashes CENTRAL NERVOUS SYSTEM: Sedated, tone is normal in all 4 extremities. EXTREMITIES: There is no peripheral edema. No clubbing, no cyanosis. Peripheral pulses are intact. - Labs CBC & Chem 7: 04/25/20 05:00 04/25/20 05:00 Labs: Abnormal Lab Results - Last 24 Hours (Table) 04/24/20 04/24/20 04/24/20 Range/Units 13:02 13:51 14:59 WBC (3.8-10.6) k/uL Hct (34.0-46.0) % MCV (80.0-100.0) fL MCHC (31.0-37.0) g/dL Neutrophils # (1.3-7.7) k/uL Lymphocytes # (1.0-4.8) k/uL Monocytes # (0-1.0) k/uL Fibrinogen (200-500) mg/dL D-Dimer (<0.60) mg/L FEU ABG pH (7.35-7.45) ABG pCO2 (35-45) mmHg ABG pO2 (83-108) mmHg ABG HCO3 (21-25) mmol/L ABG Total CO2 (19-24) mmol/L ABG O2 Saturation (94-97) % Potassium (3.5-5.1) mmol/L Chloride (98-107) mmol/L Carbon Dioxide (22-30) mmol/L BUN (7-17) mg/dL Creatinine (0.52-1.04) mg/dL Glucose (74-99) mg/dL POC Glucose (mg/dL) 337 H 247 H 258 H (75-99) mg/dL Calcium (8.4-10.2) mg/dL Phosphorus (2.5-4.5) mg/dL Magnesium (1.6-2.3) mg/dL AST (14-36) U/L ALT (4-34) U/L Creatine Kinase (30-135) U/L C-Reactive Protein (<10.0) mg/L Total Protein (6.3-8.2) g/dL Albumin (3.5-5.0) g/dL 04/24/20 04/24/20 04/24/20 Range/Units 15:32 16:09 16:58 WBC (3.8-10.6) k/uL Hct (34.0-46.0) % MCV (80.0-100.0) fL MCHC (31.0-37.0) g/dL Neutrophils # (1.3-7.7) k/uL Lymphocytes # (1.0-4.8) k/uL Monocytes # (0-1.0) k/uL Fibrinogen (200-500) mg/dL D-Dimer (<0.60) mg/L FEU ABG pH 7.30 L (7.35-7.45) ABG pCO2 54 H (35-45) mmHg ABG pO2 66 L (83-108) mmHg ABG HCO3 26 H (21-25) mmol/L ABG Total CO2 28 H (19-24) mmol/L ABG O2 Saturation 90.7 L (94-97) % Potassium (3.5-5.1) mmol/L Chloride (98-107) mmol/L Carbon Dioxide (22-30) mmol/L BUN (7-17) mg/dL Creatinine (0.52-1.04) mg/dL Glucose (74-99) mg/dL POC Glucose (mg/dL) 192 H 175 H (75-99) mg/dL Calcium (8.4-10.2) mg/dL Phosphorus (2.5-4.5) mg/dL Magnesium (1.6-2.3) mg/dL AST (14-36) U/L ALT (4-34) U/L Creatine Kinase (30-135) U/L C-Reactive Protein (<10.0) mg/L Total Protein (6.3-8.2) g/dL Albumin (3.5-5.0) g/dL 04/24/20 04/24/20 04/24/20 Range/Units 17:03 18:15 18:59 WBC (3.8-10.6) k/uL Hct (34.0-46.0) % MCV (80.0-100.0) fL MCHC (31.0-37.0) g/dL Neutrophils # (1.3-7.7) k/uL Lymphocytes # (1.0-4.8) k/uL Monocytes # (0-1.0) k/uL Fibrinogen (200-500) mg/dL D-Dimer (<0.60) mg/L FEU ABG pH (7.35-7.45) ABG pCO2 (35-45) mmHg ABG pO2 (83-108) mmHg ABG HCO3 (21-25) mmol/L ABG Total CO2 (19-24) mmol/L ABG O2 Saturation (94-97) % Potassium 3.0 L (3.5-5.1) mmol/L Chloride (98-107) mmol/L Carbon Dioxide (22-30) mmol/L BUN (7-17) mg/dL Creatinine (0.52-1.04) mg/dL Glucose (74-99) mg/dL POC Glucose (mg/dL) 141 H 139 H (75-99) mg/dL Calcium (8.4-10.2) mg/dL Phosphorus (2.5-4.5) mg/dL Magnesium (1.6-2.3) mg/dL AST (14-36) U/L ALT (4-34) U/L Creatine Kinase (30-135) U/L C-Reactive Protein (<10.0) mg/L Total Protein (6.3-8.2) g/dL Albumin (3.5-5.0) g/dL 04/24/20 04/24/20 04/24/20 Range/Units 20:04 20:56 22:02 WBC (3.8-10.6) k/uL Hct (34.0-46.0) % MCV (80.0-100.0) fL MCHC (31.0-37.0) g/dL Neutrophils # (1.3-7.7) k/uL Lymphocytes # (1.0-4.8) k/uL Monocytes # (0-1.0) k/uL Fibrinogen (200-500) mg/dL D-Dimer (<0.60) mg/L FEU ABG pH (7.35-7.45) ABG pCO2 (35-45) mmHg ABG pO2 (83-108) mmHg ABG HCO3 (21-25) mmol/L ABG Total CO2 (19-24) mmol/L ABG O2 Saturation (94-97) % Potassium (3.5-5.1) mmol/L Chloride (98-107) mmol/L Carbon Dioxide (22-30) mmol/L BUN (7-17) mg/dL Creatinine (0.52-1.04) mg/dL Glucose (74-99) mg/dL POC Glucose (mg/dL) 159 H 179 H 167 H (75-99) mg/dL Calcium (8.4-10.2) mg/dL Phosphorus (2.5-4.5) mg/dL Magnesium (1.6-2.3) mg/dL AST (14-36) U/L ALT (4-34) U/L Creatine Kinase (30-135) U/L C-Reactive Protein (<10.0) mg/L Total Protein (6.3-8.2) g/dL Albumin (3.5-5.0) g/dL 04/24/20 04/25/20 04/25/20 Range/Units 23:08 00:16 01:04 WBC (3.8-10.6) k/uL Hct (34.0-46.0) % MCV (80.0-100.0) fL MCHC (31.0-37.0) g/dL Neutrophils # (1.3-7.7) k/uL Lymphocytes # (1.0-4.8) k/uL Monocytes # (0-1.0) k/uL Fibrinogen (200-500) mg/dL D-Dimer (<0.60) mg/L FEU ABG pH (7.35-7.45) ABG pCO2 (35-45) mmHg ABG pO2 (83-108) mmHg ABG HCO3 (21-25) mmol/L ABG Total CO2 (19-24) mmol/L ABG O2 Saturation (94-97) % Potassium (3.5-5.1) mmol/L Chloride (98-107) mmol/L Carbon Dioxide (22-30) mmol/L BUN (7-17) mg/dL Creatinine (0.52-1.04) mg/dL Glucose (74-99) mg/dL POC Glucose (mg/dL) 188 H 140 H 160 H (75-99) mg/dL Calcium (8.4-10.2) mg/dL Phosphorus (2.5-4.5) mg/dL Magnesium (1.6-2.3) mg/dL AST (14-36) U/L ALT (4-34) U/L Creatine Kinase (30-135) U/L C-Reactive Protein (<10.0) mg/L Total Protein (6.3-8.2) g/dL Albumin (3.5-5.0) g/dL 04/25/20 04/25/20 04/25/20 Range/Units 02:15 03:07 04:08 WBC (3.8-10.6) k/uL Hct (34.0-46.0) % MCV (80.0-100.0) fL MCHC (31.0-37.0) g/dL Neutrophils # (1.3-7.7) k/uL Lymphocytes # (1.0-4.8) k/uL Monocytes # (0-1.0) k/uL Fibrinogen (200-500) mg/dL D-Dimer (<0.60) mg/L FEU ABG pH (7.35-7.45) ABG pCO2 (35-45) mmHg ABG pO2 (83-108) mmHg ABG HCO3 (21-25) mmol/L ABG Total CO2 (19-24) mmol/L ABG O2 Saturation (94-97) % Potassium (3.5-5.1) mmol/L Chloride (98-107) mmol/L Carbon Dioxide (22-30) mmol/L BUN (7-17) mg/dL Creatinine (0.52-1.04) mg/dL Glucose (74-99) mg/dL POC Glucose (mg/dL) 127 H 133 H 150 H (75-99) mg/dL Calcium (8.4-10.2) mg/dL Phosphorus (2.5-4.5) mg/dL Magnesium (1.6-2.3) mg/dL AST (14-36) U/L ALT (4-34) U/L Creatine Kinase (30-135) U/L C-Reactive Protein (<10.0) mg/L Total Protein (6.3-8.2) g/dL Albumin (3.5-5.0) g/dL 04/25/20 04/25/20 04/25/20 Range/Units 05:00 05:00 05:00 WBC (3.8-10.6) k/uL Hct (34.0-46.0) % MCV (80.0-100.0) fL MCHC (31.0-37.0) g/dL Neutrophils # (1.3-7.7) k/uL Lymphocytes # (1.0-4.8) k/uL Monocytes # (0-1.0) k/uL Fibrinogen 674 H (200-500) mg/dL D-Dimer 6.31 H (<0.60) mg/L FEU ABG pH (7.35-7.45) ABG pCO2 (35-45) mmHg ABG pO2 (83-108) mmHg ABG HCO3 (21-25) mmol/L ABG Total CO2 (19-24) mmol/L ABG O2 Saturation (94-97) % Potassium 5.5 H (3.5-5.1) mmol/L Chloride 110 H (98-107) mmol/L Carbon Dioxide 34 H (22-30) mmol/L BUN 35 H (7-17) mg/dL Creatinine 1.34 H (0.52-1.04) mg/dL Glucose 161 H (74-99) mg/dL POC Glucose (mg/dL) (75-99) mg/dL Calcium 7.8 L (8.4-10.2) mg/dL Phosphorus 8.2 H (2.5-4.5) mg/dL Magnesium 2.5 H (1.6-2.3) mg/dL AST 53 H (14-36) U/L ALT 52 H (4-34) U/L Creatine Kinase 25 L (30-135) U/L C-Reactive Protein 63.7 H (<10.0) mg/L Total Protein 5.4 L (6.3-8.2) g/dL Albumin 2.3 L (3.5-5.0) g/dL 04/25/20 04/25/20 04/25/20 Range/Units 05:00 05:19 05:20 WBC 40.1 H (3.8-10.6) k/uL Hct 47.9 H (34.0-46.0) % MCV 101.8 H D (80.0-100.0) fL MCHC 30.3 L (31.0-37.0) g/dL Neutrophils # 38.1 H (1.3-7.7) k/uL Lymphocytes # 0.6 L (1.0-4.8) k/uL Monocytes # 1.1 H (0-1.0) k/uL Fibrinogen (200-500) mg/dL D-Dimer (<0.60) mg/L FEU ABG pH 7.07 L* (7.35-7.45) ABG pCO2 104 H* (35-45) mmHg ABG pO2 (83-108) mmHg ABG HCO3 30 H (21-25) mmol/L ABG Total CO2 33 H (19-24) mmol/L ABG O2 Saturation 97.2 H (94-97) % Potassium (3.5-5.1) mmol/L Chloride (98-107) mmol/L Carbon Dioxide (22-30) mmol/L BUN (7-17) mg/dL Creatinine (0.52-1.04) mg/dL Glucose (74-99) mg/dL POC Glucose (mg/dL) 133 H (75-99) mg/dL Calcium (8.4-10.2) mg/dL Phosphorus (2.5-4.5) mg/dL Magnesium (1.6-2.3) mg/dL AST (14-36) U/L ALT (4-34) U/L Creatine Kinase (30-135) U/L C-Reactive Protein (<10.0) mg/L Total Protein (6.3-8.2) g/dL Albumin (3.5-5.0) g/dL 04/25/20 04/25/20 04/25/20 Range/Units 07:03 08:21 08:56 WBC (3.8-10.6) k/uL Hct (34.0-46.0) % MCV (80.0-100.0) fL MCHC (31.0-37.0) g/dL Neutrophils # (1.3-7.7) k/uL Lymphocytes # (1.0-4.8) k/uL Monocytes # (0-1.0) k/uL Fibrinogen (200-500) mg/dL D-Dimer (<0.60) mg/L FEU ABG pH (7.35-7.45) ABG pCO2 (35-45) mmHg ABG pO2 (83-108) mmHg ABG HCO3 (21-25) mmol/L ABG Total CO2 (19-24) mmol/L ABG O2 Saturation (94-97) % Potassium (3.5-5.1) mmol/L Chloride (98-107) mmol/L Carbon Dioxide (22-30) mmol/L BUN (7-17) mg/dL Creatinine (0.52-1.04) mg/dL Glucose (74-99) mg/dL POC Glucose (mg/dL) 121 H 113 H 115 H (75-99) mg/dL Calcium (8.4-10.2) mg/dL Phosphorus (2.5-4.5) mg/dL Magnesium (1.6-2.3) mg/dL AST (14-36) U/L ALT (4-34) U/L Creatine Kinase (30-135) U/L C-Reactive Protein (<10.0) mg/L Total Protein (6.3-8.2) g/dL Albumin (3.5-5.0) g/dL 04/25/20 04/25/20 Range/Units 09:02 11:33 WBC (3.8-10.6) k/uL Hct (34.0-46.0) % MCV (80.0-100.0) fL MCHC (31.0-37.0) g/dL Neutrophils # (1.3-7.7) k/uL Lymphocytes # (1.0-4.8) k/uL Monocytes # (0-1.0) k/uL Fibrinogen (200-500) mg/dL D-Dimer (<0.60) mg/L FEU ABG pH 7.11 L* (7.35-7.45) ABG pCO2 96 H* (35-45) mmHg ABG pO2 (83-108) mmHg ABG HCO3 31 H (21-25) mmol/L ABG Total CO2 34 H (19-24) mmol/L ABG O2 Saturation 97.6 H (94-97) % Potassium (3.5-5.1) mmol/L Chloride (98-107) mmol/L Carbon Dioxide (22-30) mmol/L BUN (7-17) mg/dL Creatinine (0.52-1.04) mg/dL Glucose (74-99) mg/dL POC Glucose (mg/dL) 154 H (75-99) mg/dL Calcium (8.4-10.2) mg/dL Phosphorus (2.5-4.5) mg/dL Magnesium (1.6-2.3) mg/dL AST (14-36) U/L ALT (4-34) U/L Creatine Kinase (30-135) U/L C-Reactive Protein (<10.0) mg/L Total Protein (6.3-8.2) g/dL Albumin (3.5-5.0) g/dL Microbiology - Last 24 Hours (Table) 04/21/20 23:37 Blood Culture - Preliminary Blood No Growth after 72 hours Assessment and Plan Assessment: 1 Acute hypoxemic respiratory failure secondary to acute COVID 19 pneumonia/pneumonitis, failed previous oxygenation treatments and required intubation and mechanical ventilatory support 04/24/2020. Completed a course of Remdesivir on the 04/16/2020, received 2 units of convalescent plasma patient remains on IV steroids and anticoagulation the form of Lovenox 2 Tachycardia, episode of SVT and A. fib RVR, related to fever, and severe hypoxemia, currently on amiodarone drip 3 Possible urinary tract infection related to yeast, current empiric antibiotic coverage includes Zosyn and Diflucan was added 04/23/2020 4 Remote history of tobacco use. 5 Obesity 6 Elevated d-dimer, without evidence of pulmonary embolism. Remains on Lovenox 60 mg subcu twice a day 7 Leukocytosis, possibly related to IV steroids, rule out possibility of a bacterial superinfection 8 Elevated liver enzymes likely related to viral pneumonia 9 Elevated inflammatory markers related to acute COVID 19 pneumonia Plan: The patient was seen and evaluated by Dr. Woodruff Current respiratory rate of 40, tidal volume 400, FiO2 90% and a PEEP of 15 Sedated with propofol, paralyzed with Nimbex Amiodarone for rate control Remains on IV Solu-Medrol, Lovenox, Zosyn Prognosis is poor Family is updated We will continue to follow and make further recommendations based on her clinical status Critical care time 36 minutes, not including procedures I, the cosigning physician, performed a history & physical examination of the patient. Lungs sounds with bibasilar crackles. Maintaining good O2 saturations in the 90s on 90% FiO2 via the mechanical ventilator. I discussed the assessment and plan of care with my nurse practitioner, Shell Almazan. I attest to the above note as dictated by her.
[2020-04-25] MEDS: CISATRACURIUM 200 MG in SODIUM CHLORIDE 0.9% 180 ML IV SCH (12:45)
[2020-04-25] MEDS: AMIODARONE 200 MG TAB PO SCH ×2 (13:34→20:46)
[2020-04-25 13:44] LABS: Ferritin 2676.6 ng/mL (10.0-291.0)
[2020-04-25] MEDS ORDERED: AMIODARONE 200 MG TAB PO SCH (14:00)
[2020-04-25 16:04] LABS: Glucose,Whole Blood 122 mg/dL (75-99)
[2020-04-25] MEDS: AMIODARONE 450 MG in DEXTROSE 5% IN WATER 250 ML IV SCH ×2 (16:14)
--- NOTE | 2020-04-25 17:12 | P.PN ---
Subjective Ms. Mccoy is a 69-year-old female with a past medical history of hypertension and thyroid disorder admitted to the hospital for acute hypoxic respiratory failure secondary to COVID 19 pneumonia. Patient has extensive bilateral interstitial pneumonia. She is on a low and pulmonary Dr. Mathews is following the patient. Patient received a convalescent plasma, is also on Remdesivir. On 04/17/2020- This morning patient was evaluated in the ICU. Patient is comfortably sitting in a chair states that her breathing is improving gradually. She denies having any chest pain or palpitations. No cough or hemoptysis. She denies having any swelling or for lower extremities. No abdominal pain nausea vomiting or diarrhea. She denies having any dysuria or hematuria, she has a Bryan's catheter in place. On reviewing her vitals temperature 98.1 heart rate 75 is 5817, blood pressure 1:30 bradycardia. Saturating at 96% on a Aervo -60%. On 04/18/2020 - patient was seen and examined in the ICU. Patient is sitting in a chair by the bedside, states that her breathing has worsened compared to yesterday. Patient is on high flow Airvo, saturating in the low 90s. She denies having any chest pain or palpitations. She complains of cough that is nonproductive. Patient had a chest x-ray done showing stable bilateral air space disease. As the patient was having few episodes of tachycardia, she was started on Lopressor this morning. Patient's inflammatory markers are noted to be high. On reviewing her vitals saturating at 90% on high flow Airvo, heart rate 70s to 80s, respiratory rate 20-25, blood pressure 106-67. In reviewing her labs white count of 29.3, hemoglobin 16.8, platelets 369. D-dimer 6.99, LDH 2969, CRP 63.9. On 04/19/2020 - patient is seen and examined in the ICU. She is currently on BiPAP, as her respiratory status has worsened compared to yesterday. Patient denies having any chest pain or palpitations. No abdominal pain nausea vomiting or diarrhea. No dysuria or hematuria. She is on BiPAP 14/6 and 100% FiO2. On reviewing her vitals temperature is 99.2, respiratory rate is 25, heart rate 70, blood pressure 10 9 x 71. Reviewing the labs white count of 27.3, hemoglobin 17.4, platelets 314. Sodium 133, potassium 4.4, chloride 90, bicarbonate 35, BUN 31, creatinine 0.72. Ferritin 3195, CRP 217 and LDH 2747. 04/20/2020 This is a pleasant 69 years old female with multiple medical problems was adm itted for bilateral Covid pneumonia, she is currently on aervo at 90%/60 L of oxygen, saturating 89%. Rest of Vitas looks stable Also she is on BiPAP All the night. She is able to eat and drink, no pressors She is on normal saline at 75 mL/h with adequate urine output Patient is currently ON Medrol 40 mg twice daily, Lovenox 60 mg twice Mary and vitamin C and zinc. She finished her remdisvir and convelecent plasma. 04/21/2020 Patient remains in the ICU bed and respiratory support for her bilateral Covid pneumonia. She still dyspneic especially with exertion and she still needs BiPAP during the day shift. Also she had a fever today of 102.2. Patient is empirically on Zosyn/calcitonin check today showing normal level at 0.07. She has leukocytosis of 29K. I agree with Zosyn and I recommended to continue with that for now. Also patient is on steroids 60 mg every 6 hours. As there is no more significant progress progress in her clinical picture Glucose is 123 and inflammatory markers still elevated 04/22/2020 this is a pleasant 69 yo F who is admitted to the ICU for covid pneumonia, she is still on BiPAP dependant , TNP is started for her nutrition for this reasone. her oxygen saturation is on low 90s% cxr: diffuse interstitial opacities and worsening airspace disease in the left lower lung. consider interstitial edema wbc is sligtly less 26K, she is currently continued on zosyn , and solumedrol 60 mg. and normal saline increased to 150 ml/hr. and lovenox 60 mg BID she finised her Remdisvir and convelescent Plasma. 04/23/2020 Patient looks very tired, she came Off the BiPAP today morning and she was placed back on airvo at 60 L she is back and forth between BiPAP and airvo, however she probably will need BiPAP at night Inflammatory markers and d-dimer increased, ferritin 3100 up to 3700 and d-dimer 3 up to 5 Chest x-ray showing bilateral middle and lower infiltrates with slight improvement Treatments with antibiotics Zosyn, fluconazole was added today. Also she is also on Solu-Medrol 60 mg, normal sling was decreased to 50 mL per hour, Lovenox 60 mg twice daily, TPN and she is on vitamin C and zinc 04/24/2020 Patient today her clinical condition deteriorated, she was hypoxic this morning with oxygen saturation in the 70s percent and she was tachycardic with heart rate 140-150, patient ended up being intubated in the morning and she was in an you onset of A. fib and started on Cardizem drip on 15 mg however her heart rate was still elevated, cardiology team were consulted, blood pressure was on the low normal side. Amiodarone drip was started. Cardiology team and Cardizem drip was shut to 15 mg/h. Also insulin drip for hyperglycemia with sugar more than 300. 04/25/2020 Patient was intubated yesterday for deteriorated respiratory status, ABG showing elevated pCO2 on 496 with acidosis. 7.0 and 7.1. Oxygen saturation is acceptable at 107. She remains on mechanical ventilation managed by pulmonary/critical care team, currently her bruits and draped with before meals at 40 to help with her acidosis. Her creatinine worsened today 0.5 up to 1.3, with potassium elevated as well as 5.5 nephrology team were consulted who ordered insulin/dextrose 50%, sodium bicarb 1 and Lasix 80 mg 1. Celebrity Manager recommended hemodialysis and no improvement in 24 hours Chest x-ray showing pneumonia and edema which is stable from yesterday. Sugar improved and we could switch her insulin drip to insulin sliding scale A. fib is improved and converted to sinus rhythm with amiodarone which is switched to Pills Now per Tube [employer], She Is Already on Anticoagulation Review of systems N/a Active Medications Generic Name Dose Route Start Last Admin Trade Name Freq PRN Reason Stop Dose Admin Acetaminophen 650 mg 04/11/20 16:48 04/21/20 04:34 Acetaminophen Tab 325 Mg Tab PO 650 mg Q6HR PRN Administration Mild Pain or Fever > 100.5 Albuterol Sulfate 2 puff 04/25/20 16:00 04/25/20 16:28 Albuterol Hfa Inhaler INHALATION 2 puff RT-QID P[facility]Y Administration Alprazolam 0.25 mg 04/23/20 08:33 04/24/20 07:37 Alprazolam 0.25 Mg Tab PO 0.25 mg TID PRN Administration Anxiety Amiodarone HCl 400 mg 04/25/20 13:30 04/25/20 13:34 Amiodarone 200 Mg Tab PO 400 mg BID PERRY Administration Ascorbic Acid 250 mg 04/12/20 09:00 04/25/20 09:21 Ascorbic Acid 500 Mg Tab PO 250 mg DAILY P[facility]Y Administration Chlorhexidine Gluconate 15 ml 04/24/20 21:00 04/25/20 09:22 Chlorhexidine Gluconate 15 Ml Cup MUCOUS MEM 15 ml BID PERRY Administration Cholecalciferol 1,000 unit 04/12/20 09:00 04/25/20 09:20 Cholecalciferol 1,000 Unit Tab PO 1,000 unit DAILY PERRY Administration Enoxaparin Sodium 60 mg 04/17/20 21:00 04/25/20 09:22 Enoxaparin 60 Mg/0.6 Ml Syringe SQ 60 mg BID PERRY Administration Famotidine 20 mg 04/26/20 09:00 Famotidine 20 Mg/2 Ml Vial IV Q24HR PERRY Folic Acid 1 mg 04/12/20 12:00 04/25/20 11:42 Folic Acid 1 Mg Tab PO 1 mg DAILY@1200 [facility]Y Administration Hydromorphone HCl 1 mg 04/24/20 16:50 04/25/20 11:27 Hydromorphone 1 Mg/Ml 1 Ml Syringe IVP 1 mg Q2HR PRN Administration Pain Piperacillin Sod/Tazobactam 100 mls @ 25 mls/hr 04/21/20 10:00 04/25/20 09:41 Sod 3.375 gm/ Sodium Chloride IVPB 25 mls/hr Q8H [facility]Y Administration Fluconazole/Sodium Chloride 50 mls @ 50 mls/hr 04/23/20 09:15 04/25/20 10:15 100 mg/ IV Solution IVPB 50 mls/hr DAILY [facility]Y Administration Sodium Chloride 1,000 mls @ 50 mls/hr 04/23/20 09:00 04/25/20 05:24 Saline 0.9% IV 50 mls/hr .Q20H [facility] Administration Propofol 1,000 mg/ IV Solution 100 mls @ 0 mls/hr 04/24/20 08:45 04/25/20 08:30 IV 20 mcg/kg/min .Q0M P[facility]Y 12.756 mls/hr Titration Protocol Titrate Cisatracurium Besylate 200 mg/ 200 mls @ 12.516 mls/hr 04/24/20 16:15 04/25/20 12:45 Sodium Chloride IV 1 mcg/kg/min .[id number] PERRY 6.258 mls/hr Administration Protocol 2 MCG/KG/MIN Insulin Aspart 0 unit 04/25/20 12:00 04/25/20 16:16 Insulin Aspart (Novolog) 100 Unit/Ml Vial SQ Not Given Q4H [facility] Protocol Levothyroxine Sodium 50 mcg 04/12/20 06:30 04/25/20 06:39 Levothyroxine 50 Mcg Tab PO 50 mcg DAILY@0630 [facility] Administration Melatonin 5 mg 04/19/20 19:45 04/19/20 20:08 Melatonin 5 Mg Tablet PO 5 mg HS PRN Administration Insomnia Methylprednisolone Sodium Succinate 60 mg 04/21/20 12:00 04/25/20 11:42 Methylprednisolone Sod Succi 125 Mg/2 Ml Vial IV 60 mg Q6HR [facility] Administration Miscellaneous Information 1 each 04/14/20 05:56 Potassium Replacement Protocol 1 Each Misc MISCELLANE DAILY PRN Per Protocol Protocol Miscellaneous Information 1 each 04/24/20 18:43 Potassium Replacement Protocol 1 Each Misc MISCELLANE DAILY PRN Per Protocol Protocol Morphine Sulfate 2 mg 04/23/20 08:34 04/24/20 12:56 Morphine Sulfate 2 Mg/Ml Syringe IVP 2 mg Q6H PRN Administration Pain/Discomfort Multivitamins 1 each 04/12/20 12:00 04/25/20 11:42 Multivitamins, Thera 1 Each Tab PO 1 each DAILY@1200 [facility] Administration Naloxone HCl 0.2 mg 04/11/20 16:48 Naloxone 0.4 Mg/Ml 1 Ml Vial IV Q2M PRN Opioid Reversal Ondansetron HCl 4 mg 04/15/20 20:08 Ondansetron 4 Mg/2 Ml Vial IVP Q6HR PRN Nausea And Vomiting Thiamine HCl 100 mg 04/12/20 12:00 04/25/20 11:42 Thiamine 100 Mg Tab PO 100 mg DAILY@1200 [facility] Administration Zinc Sulfate 220 mg 04/12/20 09:00 04/25/20 09:20 Zinc Sulfate 220 Mg Cap PO 220 mg DAILY P[facility]Y Administration Objective - Vital Signs Vital signs: Vital Signs Temp 98.2 F 04/25/20 12:00 Pulse 63 04/25/20 13:00 Resp 40 H 04/25/20 13:00 BP 94/55 04/25/20 13:00 Pulse Ox 96 04/25/20 13:00 Intake & Output 04/24/20 04/25/20 04/25/20 18:59 06:59 18:59 Intake Total 2818.653 3159.036 5740.293 Output Total 900 555 60 Balance 4857.875 1936.155 2456.293 Weight 104.3 kg 106.3 kg 106.3 kg Intake: IV 1370 1002.12 2021 [place] flush 36 21 Amiodarone 360 mg In 133.32 Dextrose 5% in Water 200 ml @ 1 MG/MIN 33.333 mls/ hr IV .Q6H [facility] Rx#: [id number] Amiodarone 450 mg In 132.8 Dextrose 5% in Water 250 ml @ 0.5 MG/MIN 16.667 mls/hr IV .Q15H [facility] Rx#: [id number] Fluconazole in NaCl,Iso- 100 50 Osm 100 mg In Saline 1 50ml.bag @ 50 mls/hr IVPB DAILY [facility] Rx#:[id number] Mvi, Adult No.4 with Vit 570 K 10 ml Trace (Conc-1Ml/ Dose) 1 ml In Amino Acid 5%-D20w+Lytes*E* 1,000 ml @ 60 mls/hr IV .BY DURATION [facility] Rx#: [id number] Piperacillin-Tazobactam 3 100 100 100 .375 gm In Sodium Chloride 0.9% 100 ml @ 25 mls/hr IVPB Q8H [facility] Rx#: [id number] Sodium Bicarb 50 Sodium Chloride 0.9% 1, 600 600 300 000 ml @ 50 mls/hr IV . Q20H [facility] Rx#:[id number] Sodium Chloride 0.9% 1, 1500 500 ml @ 999 mls/hr IV . Q1H31M [facility] Rx#:[id number] Intake, IV Titration 1428.653 397.035 217.293 Amount Cisatracurium 200 mg In 64.457 64.146 Sodium Chloride 0.9% 180 ml @ 2 MCG/KG/MIN 12.516 mls/hr IV .[id number] [facility] Rx #:[id number] Dextrose 5% in Water 100 50 ml @ 618 mls/hr IV .Q10M [facility] with Amiodarone 150 mg Rx#:[id number] Diltiazem 125 mg In 103.083 112.25 86.25 Sodium Chloride 0.9% 100 ml @ 5 MG/HR 5 mls/hr IV .Q24H [facility] Rx#:[id number] Insulin Regular 100 unit 60.751 20.722 In Sodium Chloride 0.9% 100 ml @ Per Protocol IV .Q0M [facility] Rx#:[id number] Mvi, Adult No.4 with Vit 1011 K 10 ml Trace (Conc-1Ml/ Dose) 1 ml In Amino Acid 5%-D20w+Lytes*E* 1,000 ml @ 60 mls/hr IV .BY DURATION [facility] Rx#: [id number] propofoL 1,000 mg In 253.819 199.606 16.897 Empty Bag 1 bag @ Titrate IV .Q0M [facility] Rx#: [id number] Tube Feeding 20 160 168 Other 120 110 Output: Gastric Drainage 450 Urine 450 555 60 Other: Voiding Method Indwelling Catheter Indwelling Catheter Indwelling Catheter # Bowel Movements 1 ABP, PAP, CO, CI - Last Documented Arterial Blood Pressure 102/43 - Exam -GENERAL: The patient is intubated and sedated HEENT: Pupils are round and equally reacting to light. EOMI. No scleral icterus. No conjunctival pallor. Normocephalic, atraumatic. No pharyngeal erythema. No thyromegaly. CARDIOVASCULAR: S1 and S2 present. No murmurs, rubs, or gallops. -PULMONARY: Chest is clear to auscultation, bilateral crepitation ABDOMEN: Soft, nontender, nondistended, normoactive bowel sounds. No palpable organomegaly. MUSCULOSKELETAL: No joint swelling or deformity. EXTREMITIES: No cyanosis, clubbing, or pedal edema. NEUROLOGICAL: Gross neurological examination did not reveal any focal deficits. SKIN: No rashes. no petechiae. - Labs CBC & Chem 7: 04/25/20 05:00 04/25/20 16:00 Labs: Abnormal Lab Results - Last 24 Hours (Table) 04/24/20 04/24/20 04/24/20 Range/Units 13:51 14:59 15:32 WBC (3.8-10.6) k/uL Hct (34.0-46.0) % MCV (80.0-100.0) fL MCHC (31.0-37.0) g/dL Neutrophils # (1.3-7.7) k/uL Lymphocytes # (1.0-4.8) k/uL Monocytes # (0-1.0) k/uL Fibrinogen (200-500) mg/dL D-Dimer (<0.60) mg/L FEU ABG pH 7.30 L (7.35-7.45) ABG pCO2 54 H (35-45) mmHg ABG pO2 66 L (83-108) mmHg ABG HCO3 26 H (21-25) mmol/L ABG Total CO2 28 H (19-24) mmol/L ABG O2 Saturation 90.7 L (94-97) % Potassium (3.5-5.1) mmol/L Chloride (98-107) mmol/L Carbon Dioxide (22-30) mmol/L BUN (7-17) mg/dL Creatinine (0.52-1.04) mg/dL Glucose (74-99) mg/dL POC Glucose (mg/dL) 247 H 258 H (75-99) mg/dL Calcium (8.4-10.2) mg/dL Phosphorus (2.5-4.5) mg/dL Magnesium (1.6-2.3) mg/dL Ferritin (10.0-291.0) ng/mL AST (14-36) U/L ALT (4-34) U/L Creatine Kinase (30-135) U/L C-Reactive Protein (<10.0) mg/L Total Protein (6.3-8.2) g/dL Albumin (3.5-5.0) g/dL 04/24/20 04/24/20 04/24/20 Range/Units 16:09 16:58 17:03 WBC (3.8-10.6) k/uL Hct (34.0-46.0) % MCV (80.0-100.0) fL MCHC (31.0-37.0) g/dL Neutrophils # (1.3-7.7) k/uL Lymphocytes # (1.0-4.8) k/uL Monocytes # (0-1.0) k/uL Fibrinogen (200-500) mg/dL D-Dimer (<0.60) mg/L FEU ABG pH (7.35-7.45) ABG pCO2 (35-45) mmHg ABG pO2 (83-108) mmHg ABG HCO3 (21-25) mmol/L ABG Total CO2 (19-24) mmol/L ABG O2 Saturation (94-97) % Potassium 3.0 L (3.5-5.1) mmol/L Chloride (98-107) mmol/L Carbon Dioxide (22-30) mmol/L BUN (7-17) mg/dL Creatinine (0.52-1.04) mg/dL Glucose (74-99) mg/dL POC Glucose (mg/dL) 192 H 175 H (75-99) mg/dL Calcium (8.4-10.2) mg/dL Phosphorus (2.5-4.5) mg/dL Magnesium (1.6-2.3) mg/dL Ferritin (10.0-291.0) ng/mL AST (14-36) U/L ALT (4-34) U/L Creatine Kinase (30-135) U/L C-Reactive Protein (<10.0) mg/L Total Protein (6.3-8.2) g/dL Albumin (3.5-5.0) g/dL 04/24/20 04/24/20 04/24/20 Range/Units 18:15 18:59 20:04 WBC (3.8-10.6) k/uL Hct (34.0-46.0) % MCV (80.0-100.0) fL MCHC (31.0-37.0) g/dL Neutrophils # (1.3-7.7) k/uL Lymphocytes # (1.0-4.8) k/uL Monocytes # (0-1.0) k/uL Fibrinogen (200-500) mg/dL D-Dimer (<0.60) mg/L FEU ABG pH (7.35-7.45) ABG pCO2 (35-45) mmHg ABG pO2 (83-108) mmHg ABG HCO3 (21-25) mmol/L ABG Total CO2 (19-24) mmol/L ABG O2 Saturation (94-97) % Potassium (3.5-5.1) mmol/L Chloride (98-107) mmol/L Carbon Dioxide (22-30) mmol/L BUN (7-17) mg/dL Creatinine (0.52-1.04) mg/dL Glucose (74-99) mg/dL POC Glucose (mg/dL) 141 H 139 H 159 H (75-99) mg/dL Calcium (8.4-10.2) mg/dL Phosphorus (2.5-4.5) mg/dL Magnesium (1.6-2.3) mg/dL Ferritin (10.0-291.0) ng/mL AST (14-36) U/L ALT (4-34) U/L Creatine Kinase (30-135) U/L C-Reactive Protein (<10.0) mg/L Total Protein (6.3-8.2) g/dL Albumin (3.5-5.0) g/dL 04/24/20 04/24/20 04/24/20 Range/Units 20:56 22:02 23:08 WBC (3.8-10.6) k/uL Hct (34.0-46.0) % MCV (80.0-100.0) fL MCHC (31.0-37.0) g/dL Neutrophils # (1.3-7.7) k/uL Lymphocytes # (1.0-4.8) k/uL Monocytes # (0-1.0) k/uL Fibrinogen (200-500) mg/dL D-Dimer (<0.60) mg/L FEU ABG pH (7.35-7.45) ABG pCO2 (35-45) mmHg ABG pO2 (83-108) mmHg ABG HCO3 (21-25) mmol/L ABG Total CO2 (19-24) mmol/L ABG O2 Saturation (94-97) % Potassium (3.5-5.1) mmol/L Chloride (98-107) mmol/L Carbon Dioxide (22-30) mmol/L BUN (7-17) mg/dL Creatinine (0.52-1.04) mg/dL Glucose (74-99) mg/dL POC Glucose (mg/dL) 179 H 167 H 188 H (75-99) mg/dL Calcium (8.4-10.2) mg/dL Phosphorus (2.5-4.5) mg/dL Magnesium (1.6-2.3) mg/dL Ferritin (10.0-291.0) ng/mL AST (14-36) U/L ALT (4-34) U/L Creatine Kinase (30-135) U/L C-Reactive Protein (<10.0) mg/L Total Protein (6.3-8.2) g/dL Albumin (3.5-5.0) g/dL 04/25/20 04/25/20 04/25/20 Range/Units 00:16 01:04 02:15 WBC (3.8-10.6) k/uL Hct (34.0-46.0) % MCV (80.0-100.0) fL MCHC (31.0-37.0) g/dL Neutrophils # (1.3-7.7) k/uL Lymphocytes # (1.0-4.8) k/uL Monocytes # (0-1.0) k/uL Fibrinogen (200-500) mg/dL D-Dimer (<0.60) mg/L FEU ABG pH (7.35-7.45) ABG pCO2 (35-45) mmHg ABG pO2 (83-108) mmHg ABG HCO3 (21-25) mmol/L ABG Total CO2 (19-24) mmol/L ABG O2 Saturation (94-97) % Potassium (3.5-5.1) mmol/L Chloride (98-107) mmol/L Carbon Dioxide (22-30) mmol/L BUN (7-17) mg/dL Creatinine (0.52-1.04) mg/dL Glucose (74-99) mg/dL POC Glucose (mg/dL) 140 H 160 H 127 H (75-99) mg/dL Calcium (8.4-10.2) mg/dL Phosphorus (2.5-4.5) mg/dL Magnesium (1.6-2.3) mg/dL Ferritin (10.0-291.0) ng/mL AST (14-36) U/L ALT (4-34) U/L Creatine Kinase (30-135) U/L C-Reactive Protein (<10.0) mg/L Total Protein (6.3-8.2) g/dL Albumin (3.5-5.0) g/dL 04/25/20 04/25/20 04/25/20 Range/Units 03:07 04:08 05:00 WBC (3.8-10.6) k/uL Hct (34.0-46.0) % MCV (80.0-100.0) fL MCHC (31.0-37.0) g/dL Neutrophils # (1.3-7.7) k/uL Lymphocytes # (1.0-4.8) k/uL Monocytes # (0-1.0) k/uL Fibrinogen 674 H (200-500) mg/dL D-Dimer 6.31 H (<0.60) mg/L FEU ABG pH (7.35-7.45) ABG pCO2 (35-45) mmHg ABG pO2 (83-108) mmHg ABG HCO3 (21-25) mmol/L ABG Total CO2 (19-24) mmol/L ABG O2 Saturation (94-97) % Potassium (3.5-5.1) mmol/L Chloride (98-107) mmol/L Carbon Dioxide (22-30) mmol/L BUN (7-17) mg/dL Creatinine (0.52-1.04) mg/dL Glucose (74-99) mg/dL POC Glucose (mg/dL) 133 H 150 H (75-99) mg/dL Calcium (8.4-10.2) mg/dL Phosphorus (2.5-4.5) mg/dL Magnesium (1.6-2.3) mg/dL Ferritin (10.0-291.0) ng/mL AST (14-36) U/L ALT (4-34) U/L Creatine Kinase (30-135) U/L C-Reactive Protein (<10.0) mg/L Total Protein (6.3-8.2) g/dL Albumin (3.5-5.0) g/dL 04/25/20 04/25/20 04/25/20 Range/Units 05:00 05:00 05:00 WBC 40.1 H (3.8-10.6) k/uL Hct 47.9 H (34.0-46.0) % MCV 101.8 H D (80.0-100.0) fL MCHC 30.3 L (31.0-37.0) g/dL Neutrophils # 38.1 H (1.3-7.7) k/uL Lymphocytes # 0.6 L (1.0-4.8) k/uL Monocytes # 1.1 H (0-1.0) k/uL Fibrinogen (200-500) mg/dL D-Dimer (<0.60) mg/L FEU ABG pH (7.35-7.45) ABG pCO2 (35-45) mmHg ABG pO2 (83-108) mmHg ABG HCO3 (21-25) mmol/L ABG Total CO2 (19-24) mmol/L ABG O2 Saturation (94-97) % Potassium 5.5 H (3.5-5.1) mmol/L Chloride 110 H (98-107) mmol/L Carbon Dioxide 34 H (22-30) mmol/L BUN 35 H (7-17) mg/dL Creatinine 1.34 H (0.52-1.04) mg/dL Glucose 161 H (74-99) mg/dL POC Glucose (mg/dL) (75-99) mg/dL Calcium 7.8 L (8.4-10.2) mg/dL Phosphorus 8.2 H (2.5-4.5) mg/dL Magnesium 2.5 H (1.6-2.3) mg/dL Ferritin 2676.6 H (10.0-291.0) ng/mL AST 53 H (14-36) U/L ALT 52 H (4-34) U/L Creatine Kinase 25 L (30-135) U/L C-Reactive Protein 63.7 H (<10.0) mg/L Total Protein 5.4 L (6.3-8.2) g/dL Albumin 2.3 L (3.5-5.0) g/dL 04/25/20 04/25/20 04/25/20 Range/Units 05:19 05:20 07:03 WBC (3.8-10.6) k/uL Hct (34.0-46.0) % MCV (80.0-100.0) fL MCHC (31.0-37.0) g/dL Neutrophils # (1.3-7.7) k/uL Lymphocytes # (1.0-4.8) k/uL Monocytes # (0-1.0) k/uL Fibrinogen (200-500) mg/dL D-Dimer (<0.60) mg/L FEU ABG pH 7.07 L* (7.35-7.45) ABG pCO2 104 H* (35-45) mmHg ABG pO2 (83-108) mmHg ABG HCO3 30 H (21-25) mmol/L ABG Total CO2 33 H (19-24) mmol/L ABG O2 Saturation 97.2 H (94-97) % Potassium (3.5-5.1) mmol/L Chloride (98-107) mmol/L Carbon Dioxide (22-30) mmol/L BUN (7-17) mg/dL Creatinine (0.52-1.04) mg/dL Glucose (74-99) mg/dL POC Glucose (mg/dL) 133 H 121 H (75-99) mg/dL Calcium (8.4-10.2) mg/dL Phosphorus (2.5-4.5) mg/dL Magnesium (1.6-2.3) mg/dL Ferritin (10.0-291.0) ng/mL AST (14-36) U/L ALT (4-34) U/L Creatine Kinase (30-135) U/L C-Reactive Protein (<10.0) mg/L Total Protein (6.3-8.2) g/dL Albumin (3.5-5.0) g/dL 04/25/20 04/25/20 04/25/20 Range/Units 08:21 08:56 09:02 WBC (3.8-10.6) k/uL Hct (34.0-46.0) % MCV (80.0-100.0) fL MCHC (31.0-37.0) g/dL Neutrophils # (1.3-7.7) k/uL Lymphocytes # (1.0-4.8) k/uL Monocytes # (0-1.0) k/uL Fibrinogen (200-500) mg/dL D-Dimer (<0.60) mg/L FEU ABG pH 7.11 L* (7.35-7.45) ABG pCO2 96 H* (35-45) mmHg ABG pO2 (83-108) mmHg ABG HCO3 31 H (21-25) mmol/L ABG Total CO2 34 H (19-24) mmol/L ABG O2 Saturation 97.6 H (94-97) % Potassium (3.5-5.1) mmol/L Chloride (98-107) mmol/L Carbon Dioxide (22-30) mmol/L BUN (7-17) mg/dL Creatinine (0.52-1.04) mg/dL Glucose (74-99) mg/dL POC Glucose (mg/dL) 113 H 115 H (75-99) mg/dL Calcium (8.4-10.2) mg/dL Phosphorus (2.5-4.5) mg/dL Magnesium (1.6-2.3) mg/dL Ferritin (10.0-291.0) ng/mL AST (14-36) U/L ALT (4-34) U/L Creatine Kinase (30-135) U/L C-Reactive Protein (<10.0) mg/L Total Protein (6.3-8.2) g/dL Albumin (3.5-5.0) g/dL 04/25/20 Range/Units 11:33 WBC (3.8-10.6) k/uL Hct (34.0-46.0) % MCV (80.0-100.0) fL MCHC (31.0-37.0) g/dL Neutrophils # (1.3-7.7) k/uL Lymphocytes # (1.0-4.8) k/uL Monocytes # (0-1.0) k/uL Fibrinogen (200-500) mg/dL D-Dimer (<0.60) mg/L FEU ABG pH (7.35-7.45) ABG pCO2 (35-45) mmHg ABG pO2 (83-108) mmHg ABG HCO3 (21-25) mmol/L ABG Total CO2 (19-24) mmol/L ABG O2 Saturation (94-97) % Potassium (3.5-5.1) mmol/L Chloride (98-107) mmol/L Carbon Dioxide (22-30) mmol/L BUN (7-17) mg/dL Creatinine (0.52-1.04) mg/dL Glucose (74-99) mg/dL POC Glucose (mg/dL) 154 H (75-99) mg/dL Calcium (8.4-10.2) mg/dL Phosphorus (2.5-4.5) mg/dL Magnesium (1.6-2.3) mg/dL Ferritin (10.0-291.0) ng/mL AST (14-36) U/L ALT (4-34) U/L Creatine Kinase (30-135) U/L C-Reactive Protein (<10.0) mg/L Total Protein (6.3-8.2) g/dL Albumin (3.5-5.0) g/dL Microbiology - Last 24 Hours (Table) 04/21/20 23:37 Blood Culture - Preliminary Blood No Growth after 72 hours Assessment and Plan Assessment: COVID 19 pneumonia Acute hypoxic respiratory failure-status post intubation and mechanical ventilation New onset A. fib with RVR Acute kidney injury with hyperkalemia Combined Metabolic acidosis and respiratory acidosis Increased d-dimer without evidence of PE Hyponatremia Leukocytosis Elevated and she telemetry markers Hypertension Hypothyroidism History of bilateral posterior tibial tendon repair Obesity with BMI of 35 Plan: This is a pleasant 69 years old female with Covid pneumonia and hypoxic respiratory failure. Continue with oxygen supplementation as needed, intubated on mechanical ventilation with pulmonary/critical care team and follow the case closely. With her inflammatory markers. Continue with Solu-Medrol and Lovenox and zinc and vitamin C. continue with Lovenox, continue tube feeding, continue with antibiotics and steroids. Also she is on amiodarone Monitor WBC and kidney function Labs and medication were reviewed.. Continue same treatment. Continue with symptomatic treatment. Resume home medication. Monitor lytes and vitals. DVT and GI prophylaxis. Further recommendations as per clinical course of the p atient DVT prophylaxis: Subcutaneous Lovenox GI Prophylaxis: Pepcid Prognosis is guarded
--- NOTE | 2020-04-25 17:47 | P.CRDCN ---
History of Present Illness History of present illness: HISTORY OF PRESENTING ILLNESS This is a pleasant 69-year-old female past medical history significant for previous tobacco abuse, hypertension, hypothyroidism, obesity. Patient is sedated on ventilator and therefore history is supplied by chart. Patient was initially admitted on 04/11/2020 secondary 1 week of fevers, shortness breath, cough and decreased appetite. She was found to have Covid 19 pneumonia and has been treated for the last 2 weeks. Unfortunately she has had worsened symptoms with increasing oxygen requirements despite high flow and BiPAP. Patient had been on BiPAP however went into A. fib with RVR with heart rates in the 140s to 150s and occasionally up in the 160s yesterday. This appeared coincidental with worsened of respiratory status requiring intubation. She was then placed on Cardizem drip and on amiodarone drip and converted to sinus rhythm after sloane roximately 24 hours yesterday. She is currently normal sinus rhythm. DIAGNOSTICS Chest xray bilateral groin Gosse opacities, airspace disease. Laboratory reviewed, from 04/25/2020, white blood cell 40.1, hemoglobin 14.5, platelets 336, fibrinogen 674, d-dimer 6.3, sodium 144, potassium 5.5, BUN 35, creatinine 1.34, AST 53, ALT 52, CRP 63, albumin 2.3. Current cardiac medications include amiodarone drip, Lovenox 60 mg subcu twice a day. REVIEW OF SYSTEMS Unable to obtain secondary to patient being sedated and intubated. PHYSICAL EXAMINATION Blood pressure 120/65 heart rate 70 afebrile and maintaining oxygen saturation on 90% FiO2. CONSTITUTIONAL: No apparent distress, ill-appearing, sedated on ventilator. HEENT: Head is normocephalic. Pupils are equal, round. Sclerae anicteric. Mucous membranes of the mouth are moist. No JVD. No carotid bruit. CHEST EXAMINATION: Coarse rhonchi bilaterally HEART EXAMINATION: Regular rate and rhythm. S1, S2 heard. No murmurs, gallops or rub. ABDOMEN: Soft, nontender. Positive bowel sounds. EXTREMITIES: 2+ peripheral pulses, no lower extremity edema and no calf tenderness. NEUROLOGIC EXAMINATION: Patient is sedated on ventilator ASSESSMENT 1. New-onset atrial fibrillation, status post amiodarone with conversion to normal sinus rhythm 2. History of hypertension 3. Covid 19 pneumonia 4. Acute on chronic hypoxic respiratory failure status post intubation 04/24/2020 5. Protein calorie malnutrition 6. Acute kidney injury, creatinine increased from 0.46 up to 1.34 PLAN Patient's main presentation has been Covid 19 pneumonia with worsening hypoxia. Patient however went into A. fib with RVR and possible worsening of respiratory status secondary to her A. fib. We will check a 2-D echo to evaluate for left ventricular function and rule out any significant valvular disease or pericardial disease. Patient did have some acute kidney injury, likely related to hypoxia or hypotension, ATN. We will transition patient to by mouth amioda ari given she did have decompensation with her A. fib. Continue supportive care. Prognosis guarded. Past Medical History Past Medical History: Hypertension, Thyroid Disorder History of Any Multi-Drug Resistant Organisms: None Reported Past Surgical History: Hysterectomy Additional Past Surgical History / Comment(s): bilat post tib tendon repair, Past Anesthesia/Blood Transfusion Reactions: No Reported Reaction Smoking Status: Former smoker Medications and Allergies Home Medications Medication Instructions Recorded Confirmed Type Levothyroxine Sodium [Synthroid] 50 mcg PO DAILY 04/11/20 04/11/20 History Losartan/Hydrochlorothiazide 1 tab PO DAILY 04/11/20 04/11/20 History [Losartan-Hctz 50-12.5 mg Tab] Allergies Allergy/AdvReac Type Severity Reaction Status Date / Time No Known Allergies Allergy Verified 04/11/20 17:17 Physical Exam Vitals: Vital Signs Temp Pulse Resp BP Pulse Ox 04/25/20 16:00 98.6 F 70 40 H 120/65 97 04/25/20 15:00 64 40 H 102/61 96 04/25/20 14:00 61 40 H 94/55 97 04/25/20 13:00 63 40 H 94/55 96 04/25/20 12:00 98.2 F 69 40 H 121/76 96 04/25/20 11:00 74 40 H 112/67 04/25/20 10:00 71 40 H 112/59 04/25/20 09:00 68 36 H 111/58 04/25/20 08:00 97.6 F 66 36 H 102/57 97 04/25/20 07:00 65 30 H 94/55 97 04/25/20 06:00 63 30 H 95/60 96 04/25/20 05:00 60 30 H 92/56 95 04/25/20 04:00 96.1 F L 112 H 30 H 91/61 94 L 04/25/20 03:00 101 H 30 H 95/61 94 L 04/25/20 02:00 108 H 30 H 101/63 95 04/25/20 01:00 104 H 30 H 98/63 95 04/25/20 00:00 94.8 F L 110 H 30 H 109/68 95 04/24/20 23:00 108 H 30 H 102/69 94 L 04/24/20 22:00 96 30 H 96/70 94 L 04/24/20 21:00 120 H 30 H 133/88 94 L 04/24/20 20:00 123 H 30 H 105/70 94 L 04/24/20 19:00 125 H 30 H 84/58 95 04/24/20 18:00 128 H 30 H 93/49 95 Intake and Output 04/25/20 04/25/20 04/25/20 06:59 14:59 22:59 Intake Total 644.247 8022.293 430 Output Total 315 70 20 Balance 589.921 8608.293 410 Intake: IV 556.8 2074 106 Diana flush 24 24 6 Amiodarone 450 mg In 132.8 Dextrose 5% in Water 250 ml @ 0.5 MG/MIN 16.667 mls/hr IV .Q15H [facility] Rx#: [id number] Fluconazole in NaCl,Iso- 50 Osm 100 mg In Saline 1 50ml.bag @ 50 mls/hr IVPB DAILY [facility] Rx#:[id number] Piperacillin-Tazobactam 3 100 .375 gm In Sodium Chloride 0.9% 100 ml @ 25 mls/hr IVPB Q8H [facility] Rx#: [id number] Sodium Bicarb 50 Sodium Chloride 0.9% 1, 400 350 100 000 ml @ 50 mls/hr IV . Q20H [facility] Rx#:[id number] Sodium Chloride 0.9% 1, 1500 500 ml @ 999 mls/hr IV . Q1H31M [facility] Rx#:[id number] Intake, IV Titration 220.128 217.293 250 Amount Amiodarone 450 mg In 250 Dextrose 5% in Water 250 ml @ 0.5 MG/MIN 16.667 mls/hr IV .Q15H [facility] Rx#: [id number] Cisatracurium 200 mg In 64.146 Sodium Chloride 0.9% 180 ml @ 2 MCG/KG/MIN 12.516 mls/hr IV .[id number] [facility] Rx #:[id number] Dextrose 5% in Water 100 50 ml @ 618 mls/hr IV .Q10M ONE with Amiodarone 150 mg Rx#:[id number] Diltiazem 125 mg In 112.25 86.25 Sodium Chloride 0.9% 100 ml @ 5 MG/HR 5 mls/hr IV .Q24H [facility] Rx#:[id number] Insulin Regular 100 unit 18.702 In Sodium Chloride 0.9% 100 ml @ Per Protocol IV .Q0M [facility] Rx#:[id number] propofoL 1,000 mg In 89.176 16.897 Empty Bag 1 bag @ Titrate IV .Q0M [facility] Rx#: [id number] Tube Feeding 120 190 44 Other 60 140 30 Output: Urine 315 70 20 Other: Voiding Method Indwelling Catheter Indwelling Catheter Indwelling Catheter # Bowel Movements 1 Weight 106.3 kg 106.3 kg ABP, PAP, CO, CI - Last 8 Hours Arterial Blood Pressure 146/58 Arterial Blood Pressure 123/50 Arterial Blood Pressure 106/44 Arterial Blood Pressure 102/43 Arterial Blood Pressure 120/48 Arterial Blood Pressure 132/52 Arterial Blood Pressure 118/48 Results 04/25/20 05:00 04/25/20 16:00 Cardiac Enzymes 04/25/20 Range/Units 05:00 AST 53 H (14-36) U/L CBC 04/25/20 Range/Units 05:00 WBC 40.1 H (3.8-10.6) k/uL RBC 4.71 (3.80-5.40) m/uL Hgb 14.5 (11.4-16.0) gm/dL Hct 47.9 H (34.0-46.0) % Plt Count 336 (150-450) k/uL Comprehensive Metabolic Panel 04/24/20 04/25/20 04/25/20 Range/Units 17:03 05:00 16:00 Sodium 144 (137-145) mmol/L Potassium 3.0 L 5.5 H 4.7 (3.5-5.1) mmol/L Chloride 110 H (98-107) mmol/L Carbon Dioxide 34 H (22-30) mmol/L BUN 35 H (7-17) mg/dL Creatinine 1.34 H (0.52-1.04) mg/dL Glucose 161 H (74-99) mg/dL Calcium 7.8 L (8.4-10.2) mg/dL AST 53 H (14-36) U/L ALT 52 H (4-34) U/L Alkaline Phosphatase 119 (38-126) U/L Total Protein 5.4 L (6.3-8.2) g/dL Albumin 2.3 L (3.5-5.0) g/dL Current Medications Generic Name Dose Route Start Last Admin Trade Name Freq PRN Reason Stop Dose Admin Acetaminophen 650 mg 04/11/20 16:48 04/21/20 04:34 Acetaminophen Tab 325 Mg Tab PO 650 mg Q6HR PRN Administration Mild Pain or Fever > 100.5 Albuterol Sulfate 2 puff 04/25/20 16:00 04/25/20 16:28 Albuterol Hfa Inhaler INHALATION 2 puff RT-QID [facility] Administration Alprazolam 0.25 mg 04/23/20 08:33 04/24/20 07:37 Alprazolam 0.25 Mg Tab PO 0.25 mg TID PRN Administration Anxiety Amiodarone HCl 400 mg 04/25/20 13:30 04/25/20 13:34 Amiodarone 200 Mg Tab PO 400 mg BID [facility] Administration Ascorbic Acid 250 mg 04/12/20 09:00 04/25/20 09:21 Ascorbic Acid 500 Mg Tab PO 250 mg DAILY [facility] Administration Chlorhexidine Gluconate 15 ml 04/24/20 21:00 04/25/20 09:22 Chlorhexidine Gluconate 15 Ml Cup MUCOUS MEM 15 ml BID [facility] Administration Cholecalciferol 1,000 unit 04/12/20 09:00 04/25/20 09:20 Cholecalciferol 1,000 Unit Tab PO 1,000 unit DAILY [facility] Administration Enoxaparin Sodium 60 mg 04/17/20 21:00 04/25/20 09:22 Enoxaparin 60 Mg/0.6 Ml Syringe SQ 60 mg BID [facility] Administration Famotidine 20 mg 04/26/20 09:00 Famotidine 20 Mg/2 Ml Vial IV Q24HR [facility] Folic Acid 1 mg 04/12/20 12:00 04/25/20 11:42 Folic Acid 1 Mg Tab PO 1 mg DAILY@1200 [facility] Administration Hydromorphone HCl 1 mg 04/24/20 16:50 04/25/20 11:27 Hydromorphone 1 Mg/Ml 1 Ml Syringe IVP 1 mg Q2HR PRN Administration Pain Piperacillin Sod/Tazobactam 100 mls @ 25 mls/hr 04/21/20 10:00 04/25/20 09:41 Sod 3.375 gm/ Sodium Chloride IVPB 25 mls/hr Q8H [facility] Administration Fluconazole/Sodium Chloride 50 mls @ 50 mls/hr 04/23/20 09:15 04/25/20 10:15 100 mg/ IV Solution IVPB 50 mls/hr DAILY [facility] Administration Sodium Chloride 1,000 mls @ 50 mls/hr 04/23/20 09:00 04/25/20 05:24 Saline 0.9% IV 50 mls/hr .Q20H [facility] Administration Propofol 1,000 mg/ IV Solution 100 mls @ 0 mls/hr 04/24/20 08:45 04/25/20 08:30 IV 20 mcg/kg/min .Q0M [facility] 12.756 mls/hr Titration Protocol Titrate Cisatracurium Besylate 200 mg/ 200 mls @ 12.516 mls/hr 04/24/20 16:15 04/25/20 12:45 Sodium Chloride IV 1 mcg/kg/min .[id number] [facility] 6.258 mls/hr Administration Protocol 2 MCG/KG/MIN Insulin Aspart 0 unit 04/25/20 12:00 04/25/20 16:16 Insulin Aspart (Novolog) 100 Unit/Ml Vial SQ Not Given Q4H [facility] Protocol Levothyroxine Sodium 50 mcg 04/12/20 06:30 04/25/20 06:39 Levothyroxine 50 Mcg Tab PO 50 mcg DAILY@0630 [facility] Administration Melatonin 5 mg 04/19/20 19:45 04/19/20 20:08 Melatonin 5 Mg Tablet PO 5 mg HS PRN Administration Insomnia Methylprednisolone Sodium Succinate 60 mg 04/21/20 12:00 04/25/20 11:42 Methylprednisolone Sod Succi 125 Mg/2 Ml Vial IV 60 mg Q6HR [facility] Administration Miscellaneous Information 1 each 04/14/20 05:56 Potassium Replacement Protocol 1 Each Misc MISCELLANE DAILY PRN Per Protocol Protocol Miscellaneous Information 1 each 04/24/20 18:43 Potassium Replacement Protocol 1 Each Misc MISCELLANE DAILY PRN Per Protocol Protocol Morphine Sulfate 2 mg 04/23/20 08:34 04/24/20 12:56 Morphine Sulfate 2 Mg/Ml Syringe IVP 2 mg Q6H PRN Administration Pain/Discomfort Multivitamins 1 each 04/12/20 12:00 04/25/20 11:42 Multivitamins, Thera 1 Each Tab PO 1 each DAILY@1200 [facility] Administration Naloxone HCl 0.2 mg 04/11/20 16:48 Naloxone 0.4 Mg/Ml 1 Ml Vial IV Q2M PRN Opioid Reversal Ondansetron HCl 4 mg 04/15/20 20:08 Ondansetron 4 Mg/2 Ml Vial IVP Q6HR PRN Nausea And Vomiting Thiamine HCl 100 mg 04/12/20 12:00 04/25/20 11:42 Thiamine 100 Mg Tab PO 100 mg DAILY@1200 [facility] Administration Zinc Sulfate 220 mg 04/12/20 09:00 04/25/20 09:20 Zinc Sulfate 220 Mg Cap PO 220 mg DAILY [facility] Administration Intake and Output 04/25/20 04/25/20 04/25/20 06:59 14:59 22:59 Intake Total 704.493 7391.293 430 Output Total 315 70 20 Balance 006.063 5583.293 410 Intake: IV 556.8 2074 106 Diana flush 24 24 6 Amiodarone 450 mg In 132.8 Dextrose 5% in Water 250 ml @ 0.5 MG/MIN 16.667 mls/hr IV .Q15H [facility] Rx#: [id number] Fluconazole in NaCl,Iso- 50 Osm 100 mg In Saline 1 50ml.bag @ 50 mls/hr IVPB DAILY [facility] Rx#:[id number] Piperacillin-Tazobactam 3 100 .375 gm In Sodium Chloride 0.9% 100 ml @ 25 mls/hr IVPB Q8H [facility] Rx#: [id number] Sodium Bicarb 50 Sodium Chloride 0.9% 1, 400 350 100 000 ml @ 50 mls/hr IV . Q20H [facility] Rx#:[id number] Sodium Chloride 0.9% 1, 1500 500 ml @ 999 mls/hr IV . Q1H31M [facility] Rx#:[id number] Intake, IV Titration 220.128 217.293 250 Amount Amiodarone 450 mg In 250 Dextrose 5% in Water 250 ml @ 0.5 MG/MIN 16.667 mls/hr IV .Q15H [facility] Rx#: [id number] Cisatracurium 200 mg In 64.146 Sodium Chloride 0.9% 180 ml @ 2 MCG/KG/MIN 12.516 mls/hr IV .[id number] [facility], [facility] Rx #:[id number] Dextrose 5% in Water 100 50 ml @ 618 mls/hr IV .Q10M ONE with Amiodarone 150 mg Rx#:[id number] Diltiazem 125 mg In 112.25 86.25 Sodium Chloride 0.9% 100 ml @ 5 MG/HR 5 mls/hr IV .Q24H [facility] Rx#:[id number] Insulin Regular 100 unit 18.702 In Sodium Chloride 0.9% 100 ml @ Per Protocol IV .Q0M [facility] Rx#:[id number] propofoL 1,000 mg In 89.176 16.897 Empty Bag 1 bag @ Titrate IV .Q0M [facility] Rx#: [id number] Tube Feeding 120 190 44 Other 60 140 30 Output: Urine 315 70 20 Other: Voiding Method Indwelling Catheter Indwelling Catheter Indwelling Catheter # Bowel Movements 1 Weight 106.3 kg 106.3 kg Patient Weight 04/26/20 06:59 Weight 106.3 kg 04/25/20 05:00 04/25/20 16:00
[2020-04-25] MEDS ORDERED: SODIUM CHLORIDE 0.9% 1,000 ML IV SCH (19:00)
--- NOTE | 2020-04-25 21:00 | PN ---
PROGRESS NOTE DATE OF SERVICE: 04/25/2020 REASON FOR FOLLOWUP: Acute COVID-19 pneumonia. INTERVAL HISTORY: The patient is currently afebrile. The patient remains to be intubated on the vent. The patient's FiO2 is currently 88%. No significant purulent secretions through the ET. She is hemodynamically stable, not requiring pressor support. Tolerating tube feeds and no diarrhea has been reported by the nursing staff. PHYSICAL EXAMINATION: Blood pressure 146/72 with a pulse of 73, temperature 98.6. She is 93% on 80% FiO2. GENERAL DESCRIPTION is an elderly female intubated on the vent. RESPIRATORY system: Unlabored breathing with decreased breath sounds in the bases. No wheeze. HEART S1, S2. Regular rate. ABDOMEN: Soft, no tenderness. LABS: Hemoglobin 14.5, white count up to 14.1, BUN of 35, creatinine is 1.34. Procalcitonin 0.39, interleukin 657.1. DIAGNOSTIC IMPRESSION AND PLAN: Patient with acute respiratory failure secondary to Covid 19 infection with evidence of cytochrome stroma. The patient is currently covered with Solu-Medrol, Lovenox, zinc, in addition to empiric antibiotic therapy. Overall prognosis remains to be guarded. Continue supportive care. MMODL / IJN: [id number] /
[2020-04-25 21:44] LABS: Glucose,Whole Blood 147 mg/dL (75-99)
[2020-04-25 23:42] LABS: Glucose,Whole Blood 153 mg/dL (75-99)
[2020-04-26] MEDS: PIPERACILLIN-TAZOBACTAM 3.375 GM in SODIUM CHLORIDE 0.9% 100 ML IVPB SCH ×3 (01:47→23:03)
[2020-04-26 04:27] LABS: Glucose,Whole Blood 118 mg/dL (75-99)
[2020-04-26 04:27] LABS: Basophils # (A) 0.2 k/uL (0-0.2); Basophils % (A) 1 %; Eosinophils % (A) 0 %; HCT 42.8 % (34.0-46.0); HGB 13.4 gm/dL (11.4-16.0); Hypochromasia Slight; Lymphocytes # (A) 0.3 k/uL (1.0-4.8); Lymphocytes % (A) 1 %; MCH 30.6 pg (25.0-35.0); MCHC 31.3 g/dL (31.0-37.0); MCV 97.6 fL (80.0-100.0); Mean Platelet Volume 8.1; Monocytes # (A) 0.9 k/uL (0-1.0); Monocytes % (A) 4 %; Neutrophils # (A) 24.5 k/uL (1.3-7.7); Neutrophils % (A) 94 %; Platelet Count 212 k/uL (150-450); RBC 4.39 m/uL (3.80-5.40); RDW 13.3 % (11.5-15.5); WBC 26.1 k/uL (3.8-10.6)
[2020-04-26 04:46] LABS: Calcium 7.4 mg/dL (8.4-10.2); Potassium 4.1 mmol/L (3.5-5.1)
[2020-04-26] MEDS: INSULIN ASPART (NovoLOG) 100 UNIT/ML VIAL SQ SCH ×6 (05:58→23:04)
[2020-04-26] MEDS: methylPREDNISolone SOD SUCCI 125 MG/2 ML VIAL IV SCH ×4 (06:00→23:03)
[2020-04-26] MEDS: LEVOTHYROXINE 50 MCG TAB PO SCH (06:00)
[2020-04-26 06:02] LABS: ABG Base Excess 3.2 mmol/L; ABG HCO3 29 mmol/L (21-25); ABG Oxygen Saturation 94.5 % (94-97); ABG PCO2 51 mmHg (35-45); ABG PH 7.36 (7.35-7.45); ABG PO2 67 mmHg (83-108); ABG TCO2 30 mmol/L (19-24); Allen Test Performed? Yes
[2020-04-26] MEDS: HYDROmorphone 1 MG/ML 1 ML SYRINGE IVP PRN ×2 (06:10→10:55)
[2020-04-26 07:26] LABS: ABG PCO2 104 mmHg (35-45); ABG PH 7.07 (7.35-7.45)
--- NOTE | 2020-04-26 07:33 | XR ---
EXAMINATION TYPE: XR chest 1V portable DATE OF EXAM: 04/26/2020 Comparison: 04/25/2020 Clinical History: 69-year-old female Tube placement Findings: ET tube is satisfactory. NG tube courses below the diaphragm. Heart upper limits of normal in size. C ontinued diffuse medium to fine interstitial opacities greatest in the lower lungs. Possible underlyi ng small left effusion. Impression: Continued interstitial infiltrates especially in the mid to lower lungs and possible small left effus ion.
[2020-04-26 08:09] LABS: Glucose,Whole Blood 117 mg/dL (75-99)
[2020-04-26] MEDS: ALBUTEROL HFA INHALER INHALATION SCH ×4 (08:09→19:25)
--- NOTE | 2020-04-26 08:13 | P.PN ---
Subjective Patient is seen in follow-up for acute kidney injury. Remains oliguric despite IV Lasix yesterday. Creatinine 2.84 today. Receiving tube feeding. Intubated. On 60% FiO2. Now on oral amiodarone. Vital signs are stable. General: The patient appeared well nourished and normally developed. HEENT: Head exam is unremarkable. Intubated. LUNGS: Breath sounds decreased. HEART: Rate and Rhythm are regular. ABDOMEN: Soft, no distention noted. EXTREMITITES: Trace edema. Objective - Vital Signs Vital signs: Vital Signs Temp 98.9 F 04/26/20 04:00 Pulse 64 04/26/20 07:00 Resp 40 H 04/26/20 07:00 BP 123/72 04/26/20 07:00 Pulse Ox 91 L 04/26/20 07:00 Intake & Output 04/25/20 04/26/20 04/26/20 18:59 06:59 18:59 Intake Total 3284.396 1142.335 53 Output Total 140 150 10 Balance 3144.396 992.335 43 Weight 106.3 kg Intake: IV 2286 736 53 [place] flush 36 36 3 Fluconazole in NaCl,Iso- 50 Osm 100 mg In Saline 1 50ml.bag @ 50 mls/hr IVPB DAILY [facility] Rx#:[id number] Piperacillin-Tazobactam 3 100 100 .375 gm In Sodium Chloride 0.9% 100 ml @ 25 mls/hr IVPB Q8H [facility] Rx#: [id number] Sodium Bicarb 50 Sodium Chloride 0.9% 1, 550 600 50 000 ml @ 50 mls/hr IV . Q20H [facility] Rx#:[id number] Sodium Chloride 0.9% 1, 1500 500 ml @ 999 mls/hr IV . Q1H31M [facility] Rx#:[id number] Intake, IV Titration 550.396 288.335 Amount Amiodarone 450 mg In 250 Dextrose 5% in Water 250 ml @ 0.5 MG/MIN 16.667 mls/hr IV .Q15H [facility] Rx#: [id number] Cisatracurium 200 mg In 64.146 Sodium Chloride 0.9% 180 ml @ 2 MCG/KG/MIN 12.516 mls/hr IV .[id number] [facility] Rx #:[id number] Dextrose 5% in Water 100 50 ml @ 618 mls/hr IV .Q10M ONE with Amiodarone 150 mg Rx#:[id number] Diltiazem 125 mg In 86.25 Sodium Chloride 0.9% 100 ml @ 5 MG/HR 5 mls/hr IV .Q24H [facility] Rx#:[id number] propofoL 1,000 mg In 100.000 288.335 Empty Bag 1 bag @ Titrate IV .Q0M [facility] Rx#: [id number] Tube Feeding 278 88 Other 170 30 Output: Urine 140 150 10 Other: Voiding Method Indwelling Catheter Indwelling Catheter ABP, PAP, CO, CI - Last Documented Arterial Blood Pressure 129/55 - Labs CBC & Chem 7: 04/26/20 04:10 04/26/20 04:10 Labs: Abnormal Lab Results - Last 24 Hours (Table) 04/25/20 04/25/20 04/25/20 Range/Units 05:00 05:20 08:21 WBC (3.8-10.6) k/uL Neutrophils # (1.3-7.7) k/uL Lymphocytes # (1.0-4.8) k/uL ABG pH 7.07 L* (7.35-7.45) ABG pCO2 104 H* (35-45) mmHg ABG pO2 (83-108) mmHg ABG HCO3 (21-25) mmol/L ABG Total CO2 (19-24) mmol/L ABG O2 Saturation (94-97) % Chloride (98-107) mmol/L BUN (7-17) mg/dL Creatinine (0.52-1.04) mg/dL Glucose (74-99) mg/dL POC Glucose (mg/dL) 113 H (75-99) mg/dL Calcium (8.4-10.2) mg/dL Ferritin 2676.6 H (10.0-291.0) ng/mL 04/25/20 04/25/20 04/25/20 Range/Units 08:56 09:02 11:33 WBC (3.8-10.6) k/uL Neutrophils # (1.3-7.7) k/uL Lymphocytes # (1.0-4.8) k/uL ABG pH 7.11 L* (7.35-7.45) ABG pCO2 96 H* (35-45) mmHg ABG pO2 (83-108) mmHg ABG HCO3 31 H (21-25) mmol/L ABG Total CO2 34 H (19-24) mmol/L ABG O2 Saturation 97.6 H (94-97) % Chloride (98-107) mmol/L BUN (7-17) mg/dL Creatinine (0.52-1.04) mg/dL Glucose (74-99) mg/dL POC Glucose (mg/dL) 115 H 154 H (75-99) mg/dL Calcium (8.4-10.2) mg/dL Ferritin (10.0-291.0) ng/mL 04/25/20 04/25/20 04/25/20 Range/Units 16:03 21:32 23:31 WBC (3.8-10.6) k/uL Neutrophils # (1.3-7.7) k/uL Lymphocytes # (1.0-4.8) k/uL ABG pH (7.35-7.45) ABG pCO2 (35-45) mmHg ABG pO2 (83-108) mmHg ABG HCO3 (21-25) mmol/L ABG Total CO2 (19-24) mmol/L ABG O2 Saturation (94-97) % Chloride (98-107) mmol/L BUN (7-17) mg/dL Creatinine (0.52-1.04) mg/dL Glucose (74-99) mg/dL POC Glucose (mg/dL) 122 H 147 H 153 H (75-99) mg/dL Calcium (8.4-10.2) mg/dL Ferritin (10.0-291.0) ng/mL 04/26/20 04/26/20 04/26/20 Range/Units 04:10 04:10 04:16 WBC 26.1 H (3.8-10.6) k/uL Neutrophils # 24.5 H (1.3-7.7) k/uL Lymphocytes # 0.3 L (1.0-4.8) k/uL ABG pH (7.35-7.45) ABG pCO2 (35-45) mmHg ABG pO2 (83-108) mmHg ABG HCO3 (21-25) mmol/L ABG Total CO2 (19-24) mmol/L ABG O2 Saturation (94-97) % Chloride 112 H (98-107) mmol/L BUN 63 H (7-17) mg/dL Creatinine 2.84 H (0.52-1.04) mg/dL Glucose 125 H (74-99) mg/dL POC Glucose (mg/dL) 118 H (75-99) mg/dL Calcium 7.4 L (8.4-10.2) mg/dL Ferritin (10.0-291.0) ng/mL 04/26/20 Range/Units 05:57 WBC (3.8-10.6) k/uL Neutrophils # (1.3-7.7) k/uL Lymphocytes # (1.0-4.8) k/uL ABG pH (7.35-7.45) ABG pCO2 51 H (35-45) mmHg ABG pO2 67 L (83-108) mmHg ABG HCO3 29 H (21-25) mmol/L ABG Total CO2 30 H (19-24) mmol/L ABG O2 Saturation (94-97) % Chloride (98-107) mmol/L BUN (7-17) mg/dL Creatinine (0.52-1.04) mg/dL Glucose (74-99) mg/dL POC Glucose (mg/dL) (75-99) mg/dL Calcium (8.4-10.2) mg/dL Ferritin (10.0-291.0) ng/mL Microbiology - Last 24 Hours (Table) 04/21/20 23:37 Blood Culture - Preliminary Blood No Growth after 96 hours 04/25/20 Unknown Gram Stain - Preliminary Sputum Sputum Culture - Preliminary Assessment and Plan Plan: Assessment: 1. Acute kidney injury secondary to ATN secondary to hypotension, hemodynamic instability and infection. Baseline creatinine near 1 and is 2.84 today. Oliguric. 2. Acute hypercapnic respiratory failure. Currently on 60% FiO2. 3. Hyperkalemia secondary to acute kidney injury, hyzaar and potassium s upplementation. Better. 4. COVID-19 infection. 5. A. fib with RVR maintained on oral amiodarone. Plan: Maintain normal saline at 50 mL an hour. Maintain tube feeds. Stopped Hyzaar April 25. Status post IV Lasix 80 mg April 25. Avoid nephrotoxins. Wean FiO2. Dose of Lovenox to be adjusted for renal function. With worsening renal failure and persistent oliguria, initiate renal replacement therapy. Consult vascular surgery for dialysis catheter placement. Plan for first treatment today. Continue to monitor renal function and urine output.
--- NOTE | 2020-04-26 08:28 | P.PN ---
Subjective Progress Note Date: 04/26/20 This 69-year-old white female patient who was admitted to the hospital on 04/11/2020 when she came in for evaluation of 1 week history of cough, fever, shortness of breath, decreased appetite and intermittent episodes of diarrhea. Patient was diagnosed with COVID 19 pneumonia, this was done via outpatient testing through the health Department. Patient initially presented at [facility], she was hypoxemic with a pulse ox in the 80s and she was placed on high flow oxygen and transferred to the [facility]. CT angiogram of the chest showed no evidence of pulmonary embolism, however it showed evidence of bilateral interstitial infiltrates consistent with COVID 19 pneumonitis. Patient completed her Remdesivir treatment on 04/16/2020, she received 2 units of convalescent plasma, she remains on IV steroids with IV Solu-Medrol. In view of her worsening hypoxemia patient was transferred to the intensive care unit, she is intubated on 04/24/2020 The patient is seen today 04/26/2020 and follow-up in the intensive care unit. She remains intubated on the mechanical ventilator. She was intubated on 04/24/2020 . Current settings are assist-control of 40, tidal volume 400, FiO2 60% and a PEEP of 15. Blood gases that a pH of 7.36 with a pCO2 of 50 and pO2 of 67. Chest x-ray from today is showing bilateral pulmonary infiltrates, interstitial and diffuse. ET tube is in a good location. I do not see any major interval change in her chest x-ray findings or the past 48 hours. She remains on 0.9 normal saline at 50 MLS per hour. Propofol at 50 mcg/kg/m. Nim gokul at 1.0 L micrograms per kilogram per minute. She is on amiodarone at 0.5 mg/m for AFIB/SVT. Her rate is better controlled today. She has a normal sinus rhythm for now and she is on po amiodarone. Chest x-ray with similar findings of bilateral groundglass opacity, air space disease which is stable compared to previous. She has received 2 units of convalescent plasma. She completed Remdesivir. Blood cultures reveal no growth. Urine culture revealed no growth. She was given IV Zosyn empirically. Remains on Solu-Medrol 60 mg every 6.Of significance is also development of an acute kidney injury. The patient's urine output is less than 5 mL an hour. Creatinine came up from a baseline of 0 point up to 1.34 and later on to 2.8. Nephrology is on the case. Ultrasound the kidneys was negative. Dialysis cath will be inserted today. Objective - Vital Signs Vital signs: Vital Signs Temp 98.9 F 04/26/20 04:00 Pulse 64 04/26/20 07:00 Resp 40 H 04/26/20 07:00 BP 123/72 04/26/20 07:00 Pulse Ox 91 L 04/26/20 07:00 Intake & Output 04/25/20 04/26/20 04/26/20 18:59 06:59 18:59 Intake Total 3284.396 1142.335 53 Output Total 140 150 10 Balance 3144.396 992.335 43 Weight 106.3 kg Intake: IV 2286 736 53 Diana flush 36 36 3 Fluconazole in NaCl,Iso- 50 Osm 100 mg In Saline 1 50ml.bag @ 50 mls/hr IVPB DAILY [facility] Rx#:[id number] Piperacillin-Tazobactam 3 100 100 .375 gm In Sodium Chloride 0.9% 100 ml @ 25 mls/hr IVPB Q8H [facility] Rx#: [id number] Sodium Bicarb 50 Sodium Chloride 0.9% 1, 550 600 50 000 ml @ 50 mls/hr IV . Q20H [facility] Rx#:[id number] Sodium Chloride 0.9% 1, 1500 500 ml @ 999 mls/hr IV . Q1H31M [facility] Rx#:[id number] Intake, IV Titration 550.396 288.335 Amount Amiodarone 450 mg In 250 Dextrose 5% in Water 250 ml @ 0.5 MG/MIN 16.667 mls/hr IV .Q15H [facility] Rx#: [id number] Cisatracurium 200 mg In 64.146 Sodium Chloride 0.9% 180 ml @ 2 MCG/KG/MIN 12.516 mls/hr IV .[id number] [facility] Rx #:[id number] Dextrose 5% in Water 100 50 ml @ 618 mls/hr IV .Q10M ONE with Amiodarone 150 mg Rx#:[id number] Diltiazem 125 mg In 86.25 Sodium Chloride 0.9% 100 ml @ 5 MG/HR 5 mls/hr IV .Q24H [facility] Rx#:[id number] propofoL 1,000 mg In 100.000 288.335 Empty Bag 1 bag @ Titrate IV .Q0M [facility] Rx#: [id number] Tube Feeding 278 88 Other 170 30 Output: Urine 140 150 10 Other: Voiding Method Indwelling Catheter Indwelling Catheter ABP, PAP, CO, CI - Last Documented Arterial Blood Pressure 129/55 - Exam GENERAL EXAM: Intubated, sedated 69-year-old female patient, critically ill. HEAD: Normocephalic. EYES: Sluggish reaction of pupils, equal size. NOSE: Clear with pink turbinates. THROAT: Oral endotracheal and gastric tube secured in place. No erythema or exudates. NECK: No masses, no JVD. CHEST: No chest wall deformity. LUNGS: Equal air entry with crackles in the bilateral posterior bases. CVS: S1 and S2 normal with no audible murmur, irregular rhythm. Tachycardic. ABDOMEN: No hepatosplenomegaly, normal bowel sounds, no guarding or rigidity. SPINE: No scoliosis or deformity SKIN: No rashes CENTRAL NERVOUS SYSTEM: Sedated, tone is normal in all 4 extremities. EXTREMITIES: There is no peripheral edema. No clubbing, no cyanosis. Perip heral pulses are intact. - Labs CBC & Chem 7: 04/26/20 04:10 04/26/20 04:10 Labs: Abnormal Lab Results - Last 24 Hours (Table) 04/25/20 04/25/20 04/25/20 Range/Units 05:00 05:20 08:21 WBC (3.8-10.6) k/uL Neutrophils # (1.3-7.7) k/uL Lymphocytes # (1.0-4.8) k/uL ABG pH 7.07 L* (7.35-7.45) ABG pCO2 104 H* (35-45) mmHg ABG pO2 (83-108) mmHg ABG HCO3 (21-25) mmol/L ABG Total CO2 (19-24) mmol/L ABG O2 Saturation (94-97) % Chloride (98-107) mmol/L BUN (7-17) mg/dL Creatinine (0.52-1.04) mg/dL Glucose (74-99) mg/dL POC Glucose (mg/dL) 113 H (75-99) mg/dL Calcium (8.4-10.2) mg/dL Ferritin 2676.6 H (10.0-291.0) ng/mL 04/25/20 04/25/20 04/25/20 Range/Units 08:56 09:02 11:33 WBC (3.8-10.6) k/uL Neutrophils # (1.3-7.7) k/uL Lymphocytes # (1.0-4.8) k/uL ABG pH 7.11 L* (7.35-7.45) ABG pCO2 96 H* (35-45) mmHg ABG pO2 (83-108) mmHg ABG HCO3 31 H (21-25) mmol/L ABG Total CO2 34 H (19-24) mmol/L ABG O2 Saturation 97.6 H (94-97) % Chloride (98-107) mmol/L BUN (7-17) mg/dL Creatinine (0.52-1.04) mg/dL Glucose (74-99) mg/dL POC Glucose (mg/dL) 115 H 154 H (75-99) mg/dL Calcium (8.4-10.2) mg/dL Ferritin (10.0-291.0) ng/mL 04/25/20 04/25/20 04/25/20 Range/Units 16:03 21:32 23:31 WBC (3.8-10.6) k/uL Neutrophils # (1.3-7.7) k/uL Lymphocytes # (1.0-4.8) k/uL ABG pH (7.35-7.45) ABG pCO2 (35-45) mmHg ABG pO2 (83-108) mmHg ABG HCO3 (21-25) mmol/L ABG Total CO2 (19-24) mmol/L ABG O2 Saturation (94-97) % Chloride (98-107) mmol/L BUN (7-17) mg/dL Creatinine (0.52-1.04) mg/dL Glucose (74-99) mg/dL POC Glucose (mg/dL) 122 H 147 H 153 H (75-99) mg/dL Calcium (8.4-10.2) mg/dL Ferritin (10.0-291.0) ng/mL 04/26/20 04/26/20 04/26/20 Range/Units 04:10 04:10 04:16 WBC 26.1 H (3.8-10.6) k/uL Neutrophils # 24.5 H (1.3-7.7) k/uL Lymphocytes # 0.3 L (1.0-4.8) k/uL ABG pH (7.35-7.45) ABG pCO2 (35-45) mmHg ABG pO2 (83-108) mmHg ABG HCO3 (21-25) mmol/L ABG Total CO2 (19-24) mmol/L ABG O2 Saturation (94-97) % Chloride 112 H (98-107) mmol/L BUN 63 H (7-17) mg/dL Creatinine 2.84 H (0.52-1.04) mg/dL Glucose 125 H (74-99) mg/dL POC Glucose (mg/dL) 118 H (75-99) mg/dL Calcium 7.4 L (8.4-10.2) mg/dL Ferritin (10.0-291.0) ng/mL 04/26/20 04/26/20 Range/Units 05:57 08:07 WBC (3.8-10.6) k/uL Neutrophils # (1.3-7.7) k/uL Lymphocytes # (1.0-4.8) k/uL ABG pH (7.35-7.45) ABG pCO2 51 H (35-45) mmHg ABG pO2 67 L (83-108) mmHg ABG HCO3 29 H (21-25) mmol/L ABG Total CO2 30 H (19-24) mmol/L ABG O2 Saturation (94-97) % Chloride (98-107) mmol/L BUN (7-17) mg/dL Creatinine (0.52-1.04) mg/dL Glucose (74-99) mg/dL POC Glucose (mg/dL) 117 H (75-99) mg/dL Calcium (8.4-10.2) mg/dL Ferritin (10.0-291.0) ng/mL Microbiology - Last 24 Hours (Table) 04/21/20 23:37 Blood Culture - Preliminary Blood No Growth after 96 hours 04/25/20 Unknown Gram Stain - Preliminary Sputum Sputum Culture - Preliminary Assessment and Plan Plan: 1 Acute hypoxemic respiratory failure secondary to acute COVID 19 pneumonia/pneumonitis, failed previous oxygenation treatments and required intubation and mechanical ventilatory support 04/24/2020. The patient completed a course of Remdesivir on the 04/16/2020, received 2 units of convalescent plasma patient remains on IV steroids and anticoagulation the form of Lovenox. The patient remains sadated and paralyzed and the patient is is on IV tesha umedrol and empiric antibiotic coverage with IV Zosyn 2 Tachycardia/ SVT and A. fib RVR, related to fever, and severe hypoxemia, currently on amiodarone drip 3 Possible urinary tract infection related to yeast, current empiric antibiotic coverage includes Zosyn and Diflucan was added 04/23/2020 4 acute kidney injury with a creatinine being up to 2.8 and the patient is oliguric at this point in time 5 Obesity 6 Elevated d-dimer, without evidence of pulmonary embolism. Remains on Lovenox 60 mg subcu twice a day 7 Leukocytosis, possibly related to IV steroids, rule out possibility of a eric terial superinfection of pro-calcitonin is low and the patient has been on IV Zosyn since 2020. 8 Elevated liver enzymes likely related to viral pneumonia 9 Elevated inflammatory markers related to acute COVID 19 pneumonia Plan: Continue vent support and the patient is up to 55% FiO2 and the rate will be dropped down to 32 and a follow-up gas will be obtained. If condition and oxygenation and ventilation stable, she may be considered for a paralytic holiday. Meanwhile, she is in a combination of propofol and Nimbex. Sedated with propofol, paralyzed with Nimbex Amiodarone for rate control Remains on IV Solu-Medrol, Lovenox, Zosyn, and the dose of Lovenox has been adjusted to a account for the acute kidney injury Nephrology consultation Dialysis catheter insertion Enteral feeding for nutritional support Prognosis is poor Family is updated We will continue to follow and make further recommendations based on her clinical status Critical care time >30 minutes Time with Patient: Greater than 30
[2020-04-26] MEDS ORDERED: FAMOTIDINE 20 MG/2 ML VIAL IV SCH (09:00)
[2020-04-26] MEDS: CHOLECALCIFEROL 1,000 UNIT TAB PO SCH (09:09)
[2020-04-26] MEDS: ZINC SULFATE 220 MG CAP PO SCH (09:09)
[2020-04-26] MEDS: ASCORBIC ACID 500 MG TAB PO SCH (09:09)
[2020-04-26] MEDS: AMIODARONE 200 MG TAB PO SCH ×2 (09:10→20:12)
[2020-04-26] MEDS: CHLORHEXIDINE GLUCONATE 15 ML CUP MUCOUS MEM SCH ×2 (09:10→20:12)
[2020-04-26] MEDS: FLUCONAZOLE IN NACL,ISO-OSM 100 MG in SALINE 1 50ML.BAG IVPB SCH (09:19)
[2020-04-26] MEDS: ENOXAPARIN 60 MG/0.6 ML SYRINGE SQ SCH (09:22)
--- NOTE | 2020-04-26 09:49 | P.PN ---
Subjective Progress Note Date: 04/26/20 This is a 69-year-old female who is being treated for COVID pneumonia, respiratory failure on mechanical ventilator and also acute renal failure. Patient is going to have dialysis catheter inserted. We are seeing the patient because of atrial fibrillation. Patient was on IV amiodarone, which were change d to by mouth amiodarone. Yesterday. She is getting 400 mg by mouth twice a day. She is currently seem to be sinus rhythm with frequent APCs with short course of SVT. Chest x-ray. Continue show bilateral pneumonias. Patient is being followed by pulmonology and also nephrology. We'll continue current medical therapy Objective - Vital Signs Vital signs: Vital Signs Temp 98.9 F 04/26/20 04:00 Pulse 64 04/26/20 07:00 Resp 40 H 04/26/20 07:00 BP 123/72 04/26/20 07:00 Pulse Ox 91 L 04/26/20 07:00 Intake & Output 04/25/20 04/26/20 04/26/20 18:59 06:59 18:59 Intake Total 3284.396 1142.335 147.738 Output Total 140 150 10 Balance 3144.396 992.335 137.738 Weight 106.3 kg Intake: IV 2286 736 53 Diana flush 36 36 3 Fluconazole in NaCl,Iso- 50 Osm 100 mg In Saline 1 50ml.bag @ 50 mls/hr IVPB DAILY [facility] Rx#:[id number] Piperacillin-Tazobactam 3 100 100 .375 gm In Sodium Chloride 0.9% 100 ml @ 25 mls/hr IVPB Q8H [facility] Rx#: [id number] Sodium Bicarb 50 Sodium Chloride 0.9% 1, 550 600 50 000 ml @ 50 mls/hr IV . Q20H [facility] Rx#:[id number] Sodium Chloride 0.9% 1, 1500 500 ml @ 999 mls/hr IV . Q1H31M [facility] Rx#:[id number] Intake, IV Titration 550.396 288.335 94.738 Amount Amiodarone 450 mg In 250 Dextrose 5% in Water 250 ml @ 0.5 MG/MIN 16.667 mls/hr IV .Q15H [facility] Rx#: [id number] Cisatracurium 200 mg In 64.146 Sodium Chloride 0.9% 180 ml @ 2 MCG/KG/MIN 12.516 mls/hr IV .[id number] [facility] Rx #:[id number] Dextrose 5% in Water 100 50 ml @ 618 mls/hr IV .Q10M ONE with Amiodarone 150 mg Rx#:[id number] Diltiazem 125 mg In 86.25 Sodium Chloride 0.9% 100 ml @ 5 MG/HR 5 mls/hr IV .Q24H [facility] Rx#:[id number] propofoL 1,000 mg In 100.000 288.335 94.738 Empty Bag 1 bag @ Titrate IV .Q0M [facility] Rx#: [id number] Tube Feeding 278 88 Other 170 30 Output: Urine 140 150 10 Other: Voiding Method Indwelling Catheter Indwelling Catheter ABP, PAP, CO, CI - Last Documented Arterial Blood Pressure 129/55 - Exam Patient is not personally examined because of covid infection. Information is gathered from nurses and other consultants notes - Labs CBC & Chem 7: 04/26/20 04:10 04/26/20 04:10 Labs: Abnormal Lab Results - Last 24 Hours (Table) 04/25/20 04/25/20 04/25/20 Range/Units 05:00 05:20 11:33 WBC (3.8-10.6) k/uL Neutrophils # (1.3-7.7) k/uL Lymphocytes # (1.0-4.8) k/uL ABG pH 7.07 L* (7.35-7.45) ABG pCO2 104 H* (35-45) mmHg ABG pO2 (83-108) mmHg ABG HCO3 (21-25) mmol/L ABG Total CO2 (19-24) mmol/L Chloride (98-107) mmol/L BUN (7-17) mg/dL Creatinine (0.52-1.04) mg/dL Glucose (74-99) mg/dL POC Glucose (mg/dL) 154 H (75-99) mg/dL Calcium (8.4-10.2) mg/dL Ferritin 2676.6 H (10.0-291.0) ng/mL 04/25/20 04/25/20 04/25/20 Range/Units 16:03 21:32 23:31 WBC (3.8-10.6) k/uL Neutrophils # (1.3-7.7) k/uL Lymphocytes # (1.0-4.8) k/uL ABG pH (7.35-7.45) ABG pCO2 (35-45) mmHg ABG pO2 (83-108) mmHg ABG HCO3 (21-25) mmol/L ABG Total CO2 (19-24) mmol/L Chloride (98-107) mmol/L BUN (7-17) mg/dL Creatinine (0.52-1.04) mg/dL Glucose (74-99) mg/dL POC Glucose (mg/dL) 122 H 147 H 153 H (75-99) mg/dL Calcium (8.4-10.2) mg/dL Ferritin (10.0-291.0) ng/mL 04/26/20 04/26/20 04/26/20 Range/Units 04:10 04:10 04:16 WBC 26.1 H (3.8-10.6) k/uL Neutrophils # 24.5 H (1.3-7.7) k/uL Lymphocytes # 0.3 L (1.0-4.8) k/uL ABG pH (7.35-7.45) ABG pCO2 (35-45) mmHg ABG pO2 (83-108) mmHg ABG HCO3 (21-25) mmol/L ABG Total CO2 (19-24) mmol/L Chloride 112 H (98-107) mmol/L BUN 63 H (7-17) mg/dL Creatinine 2.84 H (0.52-1.04) mg/dL Glucose 125 H (74-99) mg/dL POC Glucose (mg/dL) 118 H (75-99) mg/dL Calcium 7.4 L (8.4-10.2) mg/dL Ferritin (10.0-291.0) ng/mL 04/26/20 04/26/20 Range/Units 05:57 08:07 WBC (3.8-10.6) k/uL Neutrophils # (1.3-7.7) k/uL Lymphocytes # (1.0-4.8) k/uL ABG pH (7.35-7.45) ABG pCO2 51 H (35-45) mmHg ABG pO2 67 L (83-108) mmHg ABG HCO3 29 H (21-25) mmol/L ABG Total CO2 30 H (19-24) mmol/L Chloride (98-107) mmol/L BUN (7-17) mg/dL Creatinine (0.52-1.04) mg/dL Glucose (74-99) mg/dL POC Glucose (mg/dL) 117 H (75-99) mg/dL Calcium (8.4-10.2) mg/dL Ferritin (10.0-291.0) ng/mL Microbiology - Last 24 Hours (Table) 04/21/20 23:37 Blood Culture - Preliminary Blood No Growth after 96 hours 04/25/20 Unknown Gram Stain - Preliminary Sputum Sputum Culture - Preliminary Assessment and Plan (1) Atrial fibrillation with RVR Current Visit: Yes Status: Acute Code(s): I48.91 - UNSPECIFIED ATRIAL FIBRILLATION SNOMED Code(s): 113807707211070 (2) Pneumonia due to COVID-19 virus Current Visit: Yes Status: Acute Code(s): U07.1 - COVID-19; J12.82 - Pneumonia due to coronavirus disease 2019 SNOMED Code(s): 175602133430688761 (3) Acute renal failure Current Visit: Yes Status: Acute Code(s): N17.9 - ACUTE KIDNEY FAILURE, UNSPECIFIED SNOMED Code(s): 99352289 Plan: Continue current medical therapy with by mouth amiodarone. We'll continue to follow
[2020-04-26 10:08] LABS: ABG Base Excess 2.4 mmol/L; ABG HCO3 29 mmol/L (21-25); ABG Oxygen Saturation 90.1 % (94-97); ABG PCO2 60 mmHg (35-45); ABG PH 7.29 (7.35-7.45); ABG PO2 60 mmHg (83-108); ABG TCO2 31 mmol/L (19-24); Allen Test Performed? Yes
--- NOTE | 2020-04-26 11:13 | ECHOF ---
Referral Reason:cardiac function MEASUREMENTS -------- HEIGHT: 172.7 cm WEIGHT: 106.1 kg BP: 129/55 RVIDd: 2.8 cm (< 3.3) IVSd: 1.2 cm (0.6 - 1.1) LVIDd: 4.2 cm (3.9 - 5.3) LVPWd: 1.2 cm (0.6 - 1.1) IVSs: 1.8 cm LVIDs: 2.7 cm LVPWs: 1.4 cm LA Diam: 3.2 cm (2.7 - 3.8) LAESV Index (A-L): 21.42 ml/m Ao Diam: 3.1 cm (2.0 - 3.7) AV Cusp: 2.1 cm (1.5 - 2.6) MV EXCURSION: 16.594 mm (> 18.000) MV EF SLOPE: 65 mm/s (70 - 150) EPSS: 0.1 cm MV E Sean: 0.86 m/s MV DecT: 298 ms MV A Sean: 0.95 m/s MV E/A Ratio: 0.90 RAP: 15.00 mmHg RVSP: 39.66 mmHg FINDINGS -------- Sinus rhythm. This was a technically adequate study. The left ventricular size is normal. There is borderline concentric left ventricular hypertrophy. Overall left ventricular systolic function is normal with, an EF between 55 - 60 %. The right ventricle is normal in size. Normal LA size by volume 22+/-6 ml/m2. The right atrial size is normal. Interatrial and interventricular septum intact. The aortic valve is trileaflet, and appears structurally normal. No aortic stenosis or regurgitation. The mitral valve is normal. There is trace to mild mitral regurgitation. The tricuspid valve appears structurally normal. Mild tricuspid regurgitation present. There is m ild pulmonary hypertension. The right ventricular systolic pressure, as measured by Doppler, is 39. 66mmHg. The pulmonic valve was not well visualized. The aortic root size is normal. The inferior vena cava is dilated with no significant inspiratory collapse which is consistent estima satish right atrial pressure of >15 mmHg. There is no pericardial effusion. CONCLUSIONS -------- 1. There is borderline concentric left ventricular hypertrophy. 2. Overall left ventricular systolic function is normal with, an EF between 55 - 60 %. 3. Normal LA size by volume 22+/-6 ml/m2. 4. The aortic valve is trileaflet, and appears structurally normal. No aortic stenosis or regurgitati on. 5. There is trace to mild mitral regurgitation. 6. Mild tricuspid regurgitation present. 7. There is mild pulmonary hypertension. 8. The inferior vena cava is dilated with no significant inspiratory collapse which is consistent est imated right atrial pressure of >15 mmHg. 9. There is no pericardial effusion. COUNTER WAITRESS/WAITER: Jihan Hubbard RDCS
[2020-04-26 11:50] LABS: Glucose,Whole Blood 170 mg/dL (75-99)
[2020-04-26] MEDS: MULTIVITAMINS, THERA 1 EACH TAB PO SCH (12:31)
[2020-04-26] MEDS: THIAMINE 100 MG TAB PO SCH (12:31)
[2020-04-26] MEDS: FOLIC ACID 1 MG TAB PO SCH (12:31)
[2020-04-26] MEDS: CISATRACURIUM 200 MG in SODIUM CHLORIDE 0.9% 180 ML IV SCH ×2 (14:22→17:02)
--- NOTE | 2020-04-26 14:22 | P.GSCN ---
History of Present Illness History of present illness: 69-year-old white female, consulted for placement of urgent dialysis catheter. Patient has history of acute kidney injury to hyperkalemia and patient has been intubated Patient seen in in her room patient is on went chest has a crackles bilaterally Abdomen is soft no apparent sign noted Vascular brachial radial femoral pulses are palpable Plan is placement of dialysis catheter risk and complication discussed Past Medical History Past Medical History: Hypertension, Thyroid Disorder History of Any Multi-Drug Resistant Organisms: None Reported Past Surgical History: Hysterectomy Additional Past Surgical History / Comment(s): bilat post tib tendon repair, Past Anesthesia/Blood Transfusion Reactions: No Reported Reaction Smoking Status: Former smoker Medications and Allergies Home Medications Medication Instructions Recorded Confirmed Type Levothyroxine Sodium [Synthroid] 50 mcg PO DAILY 04/11/20 04/11/20 History Losartan/Hydrochlorothiazide 1 tab PO DAILY 04/11/20 04/11/20 History [Losartan-Hctz 50-12.5 mg Tab] Allergies Allergy/AdvReac Type Severity Reaction Status Date / Time No Known Allergies Allergy Verified 04/11/20 17:17 Surgical - Exam Vital Signs Temp Pulse Resp BP Pulse Ox 99.6 F 81 18 107/69 93 L 04/11/20 16:20 04/11/20 16:20 04/11/20 16:20 04/11/20 16:20 04/11/20 16:20 Results - Labs 04/26/20 04:10 04/26/20 04:10 Abnormal Lab Results - Last 24 Hours (Table) 04/25/20 04/25/20 04/25/20 Range/Units 05:20 16:03 21:32 WBC (3.8-10.6) k/uL Neutrophils # (1.3-7.7) k/uL Lymphocytes # (1.0-4.8) k/uL ABG pH 7.07 L* (7.35-7.45) ABG pCO2 104 H* (35-45) mmHg ABG pO2 (83-108) mmHg ABG HCO3 (21-25) mmol/L ABG Total CO2 (19-24) mmol/L ABG O2 Saturation (94-97) % Chloride (98-107) mmol/L BUN (7-17) mg/dL Creatinine (0.52-1.04) mg/dL Glucose (74-99) mg/dL POC Glucose (mg/dL) 122 H 147 H (75-99) mg/dL Calcium (8.4-10.2) mg/dL 04/25/20 04/26/20 04/26/20 Range/Units 23:31 04:10 04:10 WBC 26.1 H (3.8-10.6) k/uL Neutrophils # 24.5 H (1.3-7.7) k/uL Lymphocytes # 0.3 L (1.0-4.8) k/uL ABG pH (7.35-7.45) ABG pCO2 (35-45) mmHg ABG pO2 (83-108) mmHg ABG HCO3 (21-25) mmol/L ABG Total CO2 (19-24) mmol/L ABG O2 Saturation (94-97) % Chloride 112 H (98-107) mmol/L BUN 63 H (7-17) mg/dL Creatinine 2.84 H (0.52-1.04) mg/dL Glucose 125 H (74-99) mg/dL POC Glucose (mg/dL) 153 H (75-99) mg/dL Calcium 7.4 L (8.4-10.2) mg/dL 04/26/20 04/26/20 04/26/20 Range/Units 04:16 05:57 08:07 WBC (3.8-10.6) k/uL Neutrophils # (1.3-7.7) k/uL Lymphocytes # (1.0-4.8) k/uL ABG pH (7.35-7.45) ABG pCO2 51 H (35-45) mmHg ABG pO2 67 L (83-108) mmHg ABG HCO3 29 H (21-25) mmol/L ABG Total CO2 30 H (19-24) mmol/L ABG O2 Saturation (94-97) % Chloride (98-107) mmol/L BUN (7-17) mg/dL Creatinine (0.52-1.04) mg/dL Glucose (74-99) mg/dL POC Glucose (mg/dL) 118 H 117 H (75-99) mg/dL Calcium (8.4-10.2) mg/dL 04/26/20 04/26/20 Range/Units 10:06 11:48 WBC (3.8-10.6) k/uL Neutrophils # (1.3-7.7) k/uL Lymphocytes # (1.0-4.8) k/uL ABG pH 7.29 L (7.35-7.45) ABG pCO2 60 H (35-45) mmHg ABG pO2 60 L (83-108) mmHg ABG HCO3 29 H (21-25) mmol/L ABG Total CO2 31 H (19-24) mmol/L ABG O2 Saturation 90.1 L (94-97) % Chloride (98-107) mmol/L BUN (7-17) mg/dL Creatinine (0.52-1.04) mg/dL Glucose (74-99) mg/dL POC Glucose (mg/dL) 170 H (75-99) mg/dL Calcium (8.4-10.2) mg/dL Microbiology - Last 24 Hours (Table) 04/21/20 23:37 Blood Culture - Preliminary Blood No Growth after 96 hours 04/25/20 Unknown Gram Stain - Preliminary Sputum Sputum Culture - Preliminary Diabetes panel 04/25/20 04/26/20 Range/Units 16:00 04:10 Sodium 144 (137-145) mmol/L Potassium 4.7 4.1 (3.5-5.1) mmol/L Chloride 112 H (98-107) mmol/L Carbon Dioxide 29 (22-30) mmol/L BUN 63 H (7-17) mg/dL Creatinine 2.84 H (0.52-1.04) mg/dL Glucose 125 H (74-99) mg/dL Calcium 7.4 L (8.4-10.2) mg/dL Calcium panel 04/26/20 Range/Units 04:10 Calcium 7.4 L (8.4-10.2) mg/dL Pituitary panel 04/25/20 04/26/20 Range/Units 16:00 04:10 Sodium 144 (137-145) mmol/L Potassium 4.7 4.1 (3.5-5.1) mmol/L Chloride 112 H (98-107) mmol/L Carbon Dioxide 29 (22-30) mmol/L BUN 63 H (7-17) mg/dL Creatinine 2.84 H (0.52-1.04) mg/dL Glucose 125 H (74-99) mg/dL Calcium 7.4 L (8.4-10.2) mg/dL Adrenal panel 04/25/20 04/26/20 Range/Units 16:00 04:10 Sodium 144 (137-145) mmol/L Potassium 4.7 4.1 (3.5-5.1) mmol/L Chloride 112 H (98-107) mmol/L Carbon Dioxide 29 (22-30) mmol/L BUN 63 H (7-17) mg/dL Creatinine 2.84 H (0.52-1.04) mg/dL Glucose 125 H (74-99) mg/dL Calcium 7.4 L (8.4-10.2) mg/dL
--- NOTE | 2020-04-26 14:23 | P.PN ---
Progress Note - Text Preoperative diagnoses is acute chronic renal failure Postoperative same Procedure patient was seen in the room right groin was prepped and draped impression manner 1% lidocaine for infected in the right groin. Ultrasound- guided micropuncture introduced to right common femoral vein micropuncture guidewire was passed and 4 and dilator advanced top the guidewire. After that we passed a regular guidewire without any resistance dilator was advanced and able hemodialysis catheter placed on the top of the guidewire guidewire was removed flushed with heparin saline and Hep-Lock Secured with 3-0 nylon patient are to the procedure well
[2020-04-26 16:02] LABS: Glucose,Whole Blood 134 mg/dL (75-99)
[2020-04-26] MEDS: MORPHINE SULFATE 2 MG/ML SYRINGE IVP PRN (16:07)
[2020-04-26] MEDS: SODIUM CHLORIDE 0.9% 1,000 ML IV SCH (17:14)
[2020-04-26] MEDS: DILTIAZEM 125 MG in SODIUM CHLORIDE 0.9% 100 ML IV SCH (17:14)
[2020-04-26 18:16] LABS: Hepatitis B Surface AB- Quant 5.3 mIU/mL; Hepatitis B Surface Antibody Non-Reactive (Non-Reactive); Hepatitis B Surface Antigen Non-Reactive (Non-Reactive)
[2020-04-26 20:31] LABS: Glucose,Whole Blood 180 mg/dL (75-99)
--- NOTE | 2020-04-26 20:46 | PN ---
PROGRESS NOTE DATE OF SERVICE: 04/26/2020 REASON FOR FOLLOWUP: COVID-19 pneumonia. INTERVAL HISTORY: The patient is currently afebrile. The patient remains intubated on the vent. She is hemodynamically stable. FiO2 is currently 60%. No significant purulent secretions in the ET or any diarrhea reported by the nursing staff. PHYSICAL EXAMINATION: Blood pressure 126/94 with a pulse of 141, temperature 98. She is 91% on 60% FiO2. General description is an elderly female lying in bed in no distress. RESPIRATORY SYSTEM: Unlabored breathing with decreased breath sounds at the base. No wheeze. HEART: S1, S2. Regular rate and rhythm. ABDOMEN: Soft. No tenderness. LABS: Hemoglobin is 13.4, white count 26.1. BUN of 63, creatinine is 2.84. DIAGNOSTIC IMPRESSION AND PLAN: Patient with acute respiratory failure which is multifactorial in this patient with COVID-19 with possibility of cytokine storm in this patient currently on the vent and has a complicating factor of atrial fibrillation with rapid ventricular response, covered with the Solu-Medrol, zinc, Lovenox in addition to the empiric Zosyn; to continue while monitoring clinical course closely. Continue with supportive care. MMODL / IJN: [id number] /
[2020-04-26] MEDS: AMIODARONE 360 MG in DEXTROSE 5% IN WATER 200 ML IV ONE ×2 (22:43)
[2020-04-26 23:10] LABS: Glucose,Whole Blood 167 mg/dL (75-99)
--- NOTE | 2020-04-26 23:41 | P.PN ---
Subjective Ms. Mccoy is a 69-year-old female with a past medical history of hypertension and thyroid disorder admitted to the hospital for acute hypoxic respiratory failure secondary to COVID 19 pneumonia. Patient has extensive bilateral interstitial pneumonia. She is on a low and pulmonary Dr. Mathews is following the patient. Patient received a convalescent plasma, is also on Remdesivir. On 04/17/2020- This morning patient was evaluated in the ICU. Patient is comfortably sitting in a chair states that her breathing is improving gradually. She denies having any chest pain or palpitations. No cough or hemoptysis. She denies having any swelling or for lower extremities. No abdominal pain nausea vomiting or diarrhea. She denies having any dysuria or hematuria, she has a Bryan's catheter in place. On reviewing her vitals temperature 98.1 heart rate 75 is 5817, blood pressure 1:30 bradycardia. Saturating at 96% on a Aervo -60%. On 04/18/2020 - patient was seen and examined in the ICU. Patient is sitting in a chair by the bedside, states that her breathing has worsened compared to yesterday. Patient is on high flow Airvo, saturating in the low 90s. She denies having any chest pain or palpitations. She complains of cough that is nonproductive. Patient had a chest x-ray done showing stable bilateral air space disease. As the patient was having few episodes of tachycardia, she was started on Lopressor this morning. Patient's inflammatory markers are noted to be high. On reviewing her vitals saturating at 90% on high flow Airvo, heart rate 70s to 80s, respiratory rate 20-25, blood pressure 106-67. In reviewing her labs white count of 29.3, hemoglobin 16.8, platelets 369. D-dimer 6.99, LDH 2969, CRP 63.9. On 04/19/2020 - patient is seen and examined in the ICU. She is currently on BiPAP, as her respiratory status has worsened compared to yesterday. Patient denies having any chest pain or palpitations. No abdominal pain nausea vomiting or diarrhea. No dysuria or hematuria. She is on BiPAP 14/6 and 100% FiO2. On reviewing her vitals temperature is 99.2, respiratory rate is 25, heart rate 70, blood pressure 10 9 x 71. Reviewing the labs white count of 27.3, hemoglobin 17.4, platelets 314. Sodium 133, potassium 4.4, chloride 90, bicarbonate 35, BUN 31, creatinine 0.72. Ferritin 3195, CRP 217 and LDH 2747. 04/20/2020 This is a pleasant 69 years old female with multiple medical problems was adm itted for bilateral Covid pneumonia, she is currently on aervo at 90%/60 L of oxygen, saturating 89%. Rest of Vitas looks stable Also she is on BiPAP All the night. She is able to eat and drink, no pressors She is on normal saline at 75 mL/h with adequate urine output Patient is currently ON Medrol 40 mg twice daily, Lovenox 60 mg twice Mary and vitamin C and zinc. She finished her remdisvir and convelecent plasma. 04/21/2020 Patient remains in the ICU bed and respiratory support for her bilateral Covid pneumonia. She still dyspneic especially with exertion and she still needs BiPAP during the day shift. Also she had a fever today of 102.2. Patient is empirically on Zosyn/calcitonin check today showing normal level at 0.07. She has leukocytosis of 29K. I agree with Zosyn and I recommended to continue with that for now. Also patient is on steroids 60 mg every 6 hours. As there is no more significant progress progress in her clinical picture Glucose is 123 and inflammatory markers still elevated 04/22/2020 this is a pleasant 69 yo F who is admitted to the ICU for covid pneumonia, she is still on BiPAP dependant , TNP is started for her nutrition for this reasone. her oxygen saturation is on low 90s% cxr: diffuse interstitial opacities and worsening airspace disease in the left lower lung. consider interstitial edema wbc is sligtly less 26K, she is currently continued on zosyn , and solumedrol 60 mg. and normal saline increased to 150 ml/hr. and lovenox 60 mg BID she finised her Remdisvir and convelescent Plasma. 04/23/2020 Patient looks very tired, she came Off the BiPAP today morning and she was placed back on airvo at 60 L she is back and forth between BiPAP and airvo, however she probably will need BiPAP at night Inflammatory markers and d-dimer increased, ferritin 3100 up to 3700 and d-dimer 3 up to 5 Chest x-ray showing bilateral middle and lower infiltrates with slight improvement Treatments with antibiotics Zosyn, fluconazole was added today. Also she is also on Solu-Medrol 60 mg, normal sling was decreased to 50 mL per hour, Lovenox 60 mg twice daily, TPN and she is on vitamin C and zinc 04/24/2020 Patient today her clinical condition deteriorated, she was hypoxic this morning with oxygen saturation in the 70s percent and she was tachycardic with heart rate 140-150, patient ended up being intubated in the morning and she was in an you onset of A. fib and started on Cardizem drip on 15 mg however her heart rate was still elevated, cardiology team were consulted, blood pressure was on the low normal side. Amiodarone drip was started. Cardiology team and Cardizem drip was shut to 15 mg/h. Also insulin drip for hyperglycemia with sugar more than 300. 04/25/2020 Patient was intubated yesterday for deteriorated respiratory status, ABG showing elevated pCO2 on 496 with acidosis. 7.0 and 7.1. Oxygen saturation is acceptable at 107. She remains on mechanical ventilation managed by pulmonary/critical care team, currently her bruits and draped with before meals at 40 to help with her acidosis. Her creatinine worsened today 0.5 up to 1.3, with potassium elevated as well as 5.5 nephrology team were consulted who ordered insulin/dextrose 50%, sodium bicarb 1 and Lasix 80 mg 1. Clinical Laboratory Technologist recommended hemodialysis and no improvement in 24 hours Chest x-ray showing pneumonia and edema which is stable from yesterday. Sugar improved and we could switch her insulin drip to insulin sliding scale A. fib is improved and converted to sinus rhythm with amiodarone which is switched to Pills Now per [employer]ic, She Is Already on Anticoagulation 04/26/20 Patient remains in the ICU sedated and intubated with pulmonary/ critical care team following the case closely. Showing trending down leukocytosis to 20 6.1K. Creatinine up to 2.8, Patient is developing anuria with acute kidney injury, nephrology evaluation is appreciated and hemodialysis is initiated. Chest x-ray showing interstitial infiltrate especially in the mid to lower lungs Echocardiogram showed ejection fraction of 55-60%, and atrial fibrillation i mproved yesterday with amiodarone She remains on Solu-Medrol, Zosyn and fluconazole, normal sinus 50 and vitamin C and zinc Lovenox dose was adjusted to renal function down to 50 mg daily Prognosis remains guarded Review of systems N/a Active Medications Acetaminophen (Acetaminophen Tab 325 Mg Tab) 650 mg PO Q6HR PRN Albuterol Sulfate (Albuterol Hfa Inhaler) 2 puff INHALATION RT-QID [facility] Alprazolam (Alprazolam 0.25 Mg Tab) 0.25 mg PO TID PRN Ascorbic Acid (Ascorbic Acid 500 Mg Tab) 250 mg PO DAILY [facility] Chlorhexidine Gluconate (Chlorhexidine Gluconate 15 Ml Cup) 15 ml MUCOUS MEM BID [facility] Cholecalciferol (Cholecalciferol 1,000 Unit Tab) 1,000 unit PO DAILY [facility] Enoxaparin Sodium (Enoxaparin 60 Mg/0.6 Ml Syringe) 50 mg SQ DAILY [facility] Famotidine (Famotidine 20 Mg Tab) 20 mg OG-TUBE Q24HR [facility] Folic Acid (Folic Acid 1 Mg Tab) 1 mg PO DAILY@1200 [facility] Hydromorphone HCl (Hydromorphone 1 Mg/Ml 1 Ml Syringe) 1 mg IVP Q2HR PRN Fluconazole/Sodium Chloride (100 mg/ IV Solution) 50 mls @ 50 mls/hr IVPB DAILY [facility] Sodium Chloride (Saline 0.9%) 1,000 mls @ 50 mls/hr IV .Q20H [facility] Propofol 1,000 mg/ IV Solution 100 mls @ 0 mls/hr IV .Q0M [facility]; Protocol Cisatracurium Besylate 200 mg/ (Sodium Chloride) 200 mls @ 12.516 mls/hr IV .[id number] [facility]; Protocol Piperacillin Sod/Tazobactam (Sod 3.375 gm/ Sodium Chloride) 100 mls @ 25 mls/hr IVPB Q12H [facility] Diltiazem HCl 125 mg/ Sodium (Chloride) 125 mls @ 10 mls/hr IV .[id number] [facility] Amiodarone HCl 360 mg/ (Dextrose/Water) 200 mls @ 33.333 mls/hr IV .Q6H ONE; Protocol Insulin Aspart (Insulin Aspart (Novolog) 100 Unit/Ml Vial) 0 unit SQ Q4H [facility]; Protocol Levothyroxine Sodium (Levothyroxine 50 Mcg Tab) 50 mcg PO DAILY@0630 [facility] Melatonin (Melatonin 5 Mg Tablet) 5 mg PO HS PRN Methylprednisolone Sodium Succinate (Methylprednisolone Sod Succi 125 Mg/2 Ml Vial) 60 mg IV Q6HR [facility] Miscellaneous Information (Potassium Replacement Protocol 1 Each Misc) 1 each MISCELLANE DAILY PRN; Protocol Morphine Sulfate (Morphine Sulfate 2 Mg/Ml Syringe) 2 mg IVP Q6H PRN Multivitamins (Multivitamins, Thera 1 Each Tab) 1 each PO DAILY@1200 [facility] Naloxone HCl (Naloxone 0.4 Mg/Ml 1 Ml Vial) 0.2 mg IV Q2M PRN Ondansetron HCl (Ondansetron 4 Mg/2 Ml Vial) 4 mg IVP Q6HR PRN Thiamine HCl (Thiamine 100 Mg Tab) 100 mg PO DAILY@1200 [facility] Zinc Sulfate (Zinc Sulfate 220 Mg Cap) 220 mg PO DAILY [facility] Objective - Vital Signs Vital signs: Vital Signs Temp 97.8 F 04/26/20 14:36 Pulse 67 04/26/20 14:36 Resp 32 H 04/26/20 14:36 BP 168/69 04/26/20 14:36 Pulse Ox 93 L 04/26/20 14:00 Intake & Output 04/25/20 04/26/20 04/26/20 18:59 06:59 18:59 Intake Total 3284.396 5999.791 5694.938 Output Total 696 839 5519 Balance 3144.396 992.335 -49.062 Weight 106.3 kg Intake: IV 2286 736 524 Diana flush 36 36 24 Fluconazole in NaCl,Iso- 50 Osm 100 mg In Saline 1 50ml.bag @ 50 mls/hr IVPB DAILY [facility] Rx#:[id number] Piperacillin-Tazobactam 3 100 100 100 .375 gm In Sodium Chloride 0.9% 100 ml @ 25 mls/hr IVPB Q8H [facility] Rx#: [id number] Sodium Bicarb 50 Sodium Chloride 0.9% 1, 550 600 400 000 ml @ 50 mls/hr IV . Q20H [facility] Rx#:[id number] Sodium Chloride 0.9% 1, 1500 500 ml @ 999 mls/hr IV . Q1H31M [facility] Rx#:[id number] Intake, IV Titration 550.396 288.335 383.938 Amount Amiodarone 450 mg In 250 Dextrose 5% in Water 250 ml @ 0.5 MG/MIN 16.667 mls/hr IV .Q15H [facility] Rx#: [id number] Cisatracurium 200 mg In 64.146 189.200 Sodium Chloride 0.9% 180 ml @ 2 MCG/KG/MIN 12.516 mls/hr IV .[id number] [facility] Rx #:[id number] Dextrose 5% in Water 100 50 ml @ 618 mls/hr IV .Q10M ONE with Amiodarone 150 mg Rx#:[id number] Diltiazem 125 mg In 86.25 Sodium Chloride 0.9% 100 ml @ 5 MG/HR 5 mls/hr IV .Q24H [facility] Rx#:[id number] propofoL 1,000 mg In 100.000 288.335 194.738 Empty Bag 1 bag @ Titrate IV .Q0M [facility] Rx#: [id number] Tube Feeding 278 88 66 Other 170 30 52 Output: Urine 140 150 75 Hemodialysis 1000 Other: Voiding Method Indwelling Catheter Indwelling Catheter Indwelling Catheter ABP, PAP, CO, CI - Last Documented Arterial Blood Pressure 162/69 - Exam -GENERAL: The patient is intubated and sedated HEENT: Pupils are round and equally reacting to light. EOMI. No scleral icterus. No conjunctival pallor. Normocephalic, atraumatic. No pharyngeal erythema. No thyromegaly. CARDIOVASCULAR: S1 and S2 present. No murmurs, rubs, or gallops. -PULMONARY: Chest is clear to auscultation, bilateral crepitation ABDOMEN: Soft, nontender, nondistended, normoactive bowel sounds. No palpable organomegaly. MUSCULOSKELETAL: No joint swelling or deformity. EXTREMITIES: No cyanosis, clubbing, or pedal edema. NEUROLOGICAL: Gross neurological examination did not reveal any focal deficits. SKIN: No rashes. no petechiae. - Labs CBC & Chem 7: 04/26/20 04:10 04/26/20 04:10 Labs: Abnormal Lab Results - Last 24 Hours (Table) 04/25/20 04/25/20 04/25/20 Range/Units 05:20 16:03 21:32 WBC (3.8-10.6) k/uL Neutrophils # (1.3-7.7) k/uL Lymphocytes # (1.0-4.8) k/uL ABG pH 7.07 L* (7.35-7.45) ABG pCO2 104 H* (35-45) mmHg ABG pO2 (83-108) mmHg ABG HCO3 (21-25) mmol/L ABG Total CO2 (19-24) mmol/L ABG O2 Saturation (94-97) % Chloride (98-107) mmol/L BUN (7-17) mg/dL Creatinine (0.52-1.04) mg/dL Glucose (74-99) mg/dL POC Glucose (mg/dL) 122 H 147 H (75-99) mg/dL Calcium (8.4-10.2) mg/dL 04/25/20 04/26/20 04/26/20 Range/Units 23:31 04:10 04:10 WBC 26.1 H (3.8-10.6) k/uL Neutrophils # 24.5 H (1.3-7.7) k/uL Lymphocytes # 0.3 L (1.0-4.8) k/uL ABG pH (7.35-7.45) ABG pCO2 (35-45) mmHg ABG pO2 (83-108) mmHg ABG HCO3 (21-25) mmol/L ABG Total CO2 (19-24) mmol/L ABG O2 Saturation (94-97) % Chloride 112 H (98-107) mmol/L BUN 63 H (7-17) mg/dL Creatinine 2.84 H (0.52-1.04) mg/dL Glucose 125 H (74-99) mg/dL POC Glucose (mg/dL) 153 H (75-99) mg/dL Calcium 7.4 L (8.4-10.2) mg/dL 04/26/20 04/26/20 04/26/20 Range/Units 04:16 05:57 08:07 WBC (3.8-10.6) k/uL Neutrophils # (1.3-7.7) k/uL Lymphocytes # (1.0-4.8) k/uL ABG pH (7.35-7.45) ABG pCO2 51 H (35-45) mmHg ABG pO2 67 L (83-108) mmHg ABG HCO3 29 H (21-25) mmol/L ABG Total CO2 30 H (19-24) mmol/L ABG O2 Saturation (94-97) % Chloride (98-107) mmol/L BUN (7-17) mg/dL Creatinine (0.52-1.04) mg/dL Glucose (74-99) mg/dL POC Glucose (mg/dL) 118 H 117 H (75-99) mg/dL Calcium (8.4-10.2) mg/dL 04/26/20 04/26/20 Range/Units 10:06 11:48 WBC (3.8-10.6) k/uL Neutrophils # (1.3-7.7) k/uL Lymphocytes # (1.0-4.8) k/uL ABG pH 7.29 L (7.35-7.45) ABG pCO2 60 H (35-45) mmHg ABG pO2 60 L (83-108) mmHg ABG HCO3 29 H (21-25) mmol/L ABG Total CO2 31 H (19-24) mmol/L ABG O2 Saturation 90.1 L (94-97) % Chloride (98-107) mmol/L BUN (7-17) mg/dL Creatinine (0.52-1.04) mg/dL Glucose (74-99) mg/dL POC Glucose (mg/dL) 170 H (75-99) mg/dL Calcium (8.4-10.2) mg/dL Microbiology - Last 24 Hours (Table) 04/21/20 23:37 Blood Culture - Preliminary Blood No Growth after 96 hours 04/25/20 Unknown Gram Stain - Preliminary Sputum Sputum Culture - Preliminary Assessment and Plan Assessment: COVID 19 pneumonia Acute hypoxic respiratory failure-status post intubation and mechanical ventilation New onset A. fib with RVR Acute kidney injury with hyperkalemia Combined Metabolic acidosis and respiratory acidosis Increased d-dimer without evidence of PE Hyponatremia Leukocytosis Elevated and she telemetry markers Hypertension Hypothyroidism History of bilateral posterior tibial tendon repair Obesity with BMI of 35 Plan: This is a pleasant 69 years old female with Covid pneumonia and hypoxic respiratory failure. Continue with oxygen supplementation as needed, intubated on mechanical ventilation with pulmonary/critical care team and follow the case closely. With her inflammatory markers. Continue with Solu-Medrol and Lovenox and zinc and vitamin C. continue with Lovenox, continue tube feeding, continue with antibiotics and steroids. Also she is on amiodarone start hemodialysis per nephrology team recommended Monitor WBC and kidney function Labs and medication were reviewed.. Continue same treatment. Continue with symptomatic treatment. Resume home medication. Monitor lytes and vitals. DVT and GI prophylaxis. Further recommendations as per clinical course of the patient DVT prophylaxis: Subcutaneous Lovenox GI Prophylaxis: Pepcid Prognosis is guarded
[2020-04-27] MEDS: DILTIAZEM 125 MG in SODIUM CHLORIDE 0.9% 100 ML IV SCH ×2 (03:43→18:05)
[2020-04-27 04:00] LABS: Glucose,Whole Blood 155 mg/dL (75-99)
[2020-04-27] MEDS: INSULIN ASPART (NovoLOG) 100 UNIT/ML VIAL SQ SCH ×5 (04:00→21:00)
[2020-04-27 04:08] LABS: Basophils # (A) 0.2 k/uL (0-0.2); Basophils % (A) 1 %; Eosinophils % (A) 0 %; HCT 46.2 % (34.0-46.0); HGB 14.7 gm/dL (11.4-16.0); Hypochromasia Moderate; Lymphocytes # (A) 0.2 k/uL (1.0-4.8); Lymphocytes % (A) 1 %; MCH 31.4 pg (25.0-35.0); MCHC 31.8 g/dL (31.0-37.0); MCV 98.9 fL (80.0-100.0); Mean Platelet Volume 7.8; Monocytes # (A) 1.1 k/uL (0-1.0); Monocytes % (A) 4 %; Neutrophils % (A) 95 %; Platelet Count 230 k/uL (150-450); RBC 4.68 m/uL (3.80-5.40); RDW 13.3 % (11.5-15.5); WBC 30.8 k/uL (3.8-10.6)
[2020-04-27 04:14] LABS: Neutrophils # (A) 29.1 k/uL (1.3-7.7)
[2020-04-27 04:17] LABS: C Reactive Protein 40.5 mg/L (<10.0); Calcium 7.8 mg/dL (8.4-10.2); D-Dimer 3.35 mg/L FEU (<0.60); Potassium 4.7 mmol/L (3.5-5.1)
[2020-04-27] MEDS: AMIODARONE 360 MG in DEXTROSE 5% IN WATER 200 ML IV ONE ×2 (04:54)
[2020-04-27] MEDS: LEVOTHYROXINE 50 MCG TAB PO SCH (05:05)
[2020-04-27] MEDS: methylPREDNISolone SOD SUCCI 125 MG/2 ML VIAL IV SCH ×3 (05:05→16:58)
[2020-04-27 05:06] LABS: ABG Base Excess -1.6 mmol/L; ABG HCO3 26 mmol/L (21-25); ABG Oxygen Saturation 93.2 % (94-97); ABG PCO2 64 mmHg (35-45); ABG PH 7.22 (7.35-7.45); ABG PO2 70 mmHg (83-108); ABG TCO2 28 mmol/L (19-24); Allen Test Performed? Yes
--- NOTE | 2020-04-27 07:27 | XR ---
EXAMINATION TYPE: XR chest 1V portable DATE OF EXAM: 04/27/2020 COMPARISON: Prior chest x-ray 04/26/2020 HISTORY: Intubated TECHNIQUE: Single frontal view of the chest is obtained. FINDINGS: Endotracheal tube, NG tube, left-sided PICC line are again noted, distal tip of the PICC l ine may be overlying left innominate vein. No evident pneumothorax. Bilateral groundglass opacity is present within the lungs. Hemidiaphragms somewhat more obscured than on prior exam. Cardiac mediastin al silhouette is stable. Aorta is dense. IMPRESSION: Correlate for pneumonia, edema, ARDS, difficult to exclude small effusion
[2020-04-27 08:00] LABS: Glucose,Whole Blood 145 mg/dL (75-99)
[2020-04-27] MEDS: ALBUTEROL HFA INHALER INHALATION SCH ×5 (08:07→19:46)
[2020-04-27] MEDS ORDERED: TOCILIZUMAB 400 MG in SODIUM CHLORIDE 0.9% 80 ML IV ONE ×2 (08:22→20:00)
--- NOTE | 2020-04-27 08:37 | P.PN ---
Subjective Progress Note Date: 04/27/20 This 69-year-old white female patient who was admitted to the hospital on 04/11/2020 when she came in for evaluation of 1 week history of cough, fever, shortness of breath, decreased appetite and intermittent episodes of diarrhea. Patient was diagnosed with COVID 19 pneumonia, this was done via outpatient testing through the health Department. Patient initially presented at [facility], she was hypoxemic with a pulse ox in the 80s and she was placed on high flow oxygen and transferred to the [facility]. CT angiogram of the chest showed no evidence of pulmonary embolism, however it showed evidence of bilateral interstitial infiltrates consistent with COVID 19 pneumonitis. Patient completed her Remdesivir treatment on 04/16/2020, she received 2 units of convalescent plasma, she remains on IV steroids with IV Solu-Medrol. In view of her worsening hypoxemia patient was transferred to the intensive care unit, she is intubated on 04/24/2020 The patient is seen today 04/26/2020 and follow-up in the intensive care unit. She remains intubated on the mechanical ventilator. She was intubated on 04/24/2020 . Current settings are assist-control of 40, tidal volume 400, FiO2 60% and a PEEP of 15. Blood gases that a pH of 7.36 with a pCO2 of 50 and pO2 of 67. Chest x-ray from today is showing bilateral pulmonary infiltrates, interstitial and diffuse. ET tube is in a good location. I do not see any major interval change in her chest x-ray findings or the past 48 hours. She remains on 0.9 normal saline at 50 MLS per hour. Propofol at 50 mcg/kg/m. Nimb ex at 1.0 L micrograms per kilogram per minute. She is on amiodarone at 0.5 mg/m for AFIB/SVT. Her rate is better controlled today. She has a normal sinus rhythm for now and she is on po amiodarone. Chest x-ray with similar findings of bilateral groundglass opacity, air space disease which is stable compared to previous. She has received 2 units of convalescent plasma. She completed Remdesivir. Blood cultures reveal no growth. Urine culture revealed no growth. She was given IV Zosyn empirically. Remains on Solu-Medrol 60 mg every 6.Of significance is also development of an acute kidney injury. The patient's urine output is less than 5 mL an hour. Creatinine came up from a baseline of 0 point up to 1.34 and later on to 2.8. Nephrology is on the case. Ultrasound the kidneys was negative. Dialysis cath will be inserted today. Today's evaluation of 04/27/2020, I am seeing the patient for a follow-up. As mentioned earlier, this is a case of coronary via/fluid 19 related pneu monia/ARDS and the patient remains intubated on a mechanical ventilator. This morning, she is assist-control mode at the rate of 32 with a tidal volume of 100 and FiO2 of 60% with a PEEP of 15. The blood gases from today shows a pH of 7.21 with a pCO2 of 64 and pO2 of 70. The patient is very much success with the mechanical ventilator. The patient is still on propofol running at 40 mcg/kg per minute. She is also on Nimbex and she is paralyzed in the maxillary running at 1 mcg/kg per minute. I think it's time to give the patient a paralytic holiday today. Her peak airway pressure on a mechanical ventilator is in order of 33 with a static pressure of around 30. The chest x-ray from today is showing a bilateral pulmonary infiltrates which is more so in the lower lobes bilaterally. No major interval change compared to yesterday. ET tube is in a good location. NG tube was also within the stomach and is also in a good location. IV fluids are running in the form of 0.9 at the rate of 50 mL an hour. The neck fluid balance over the past 24 hours is +1.9 L and 4.1 L earlier than 3.0 L earlier. As such the patient has been a significant positive fluid balance pH is undergoing hemodialysis in the last bout of hemodialysis was yesterday. A total of 1 L of fluid was removed. I think ultrafiltration is to be somewhat aggressively. The white cell count is at 30 the creatinine today is at 3.37 with a BUN of 71. The patient also has a white cell count of 30. Hemoglobin is at 14.7. Enteral feeding for nutritional support is running and the patient is on Nepro. Inflammatory markers today showed a CRP of 40 which is lower compared to yesterday. LDH is still pending. Last LDH level was elevated at 2444 and a progressive on 11 was 0.39 which is essentially low knowing that the patient has an underlying acute kidney injury. The patient's cardiac rhythm is A. fib and the rate is ranging between 100 and 120. The patient is currently on amiodarone at 1 mg/m Objective - Vital Signs Vital signs: Vital Signs Temp 98.8 F 04/27/20 04:00 Pulse 128 H 04/27/20 07:00 Resp 32 H 04/27/20 07:00 BP 125/81 04/27/20 07:00 Pulse Ox 91 L 04/27/20 07:00 Intake & Output 04/26/20 04/27/20 04/27/20 18:59 06:59 18:59 Intake Total 6720.900 3632.458 75 Output Total 1115 90 10 Balance 116.239 6175.458 65 Weight 110.9 kg Intake: IV 736 636 53 Diana flush 36 36 3 Piperacillin-Tazobactam 3 100 .375 gm In Sodium Chloride 0.9% 100 ml @ 25 mls/hr IVPB Q8H [facility] Rx#: [id number] Sodium Chloride 0.9% 1, 600 600 50 000 ml @ 50 mls/hr IV . Q20H [facility] Rx#:[id number] Intake, IV Titration 555.159 601.458 Amount Amiodarone 360 mg In 200 Dextrose 5% in Water 200 ml @ 1 MG/MIN 33.333 mls/ hr IV .Q6H [facility] Rx#: [id number] Cisatracurium 200 mg In 189.200 Sodium Chloride 0.9% 180 ml @ 2 MCG/KG/MIN 12.516 mls/hr IV .[id number] [facility] Rx #:[id number] Diltiazem 125 mg In 125.000 Sodium Chloride 0.9% 100 ml @ 10 MG/HR 10 mls/hr IV .[id number] [facility] Rx#: [id number] propofoL 1,000 mg In 365.959 276.458 Empty Bag 1 bag @ Titrate IV .Q0M [facility] Rx#: [id number] Tube Feeding 176 264 22 Other 60 90 Output: Urine 115 90 10 Hemodialysis 1000 Other: Voiding Method Indwelling Catheter Indwelling Catheter ABP, PAP, CO, CI - Last Documented Arterial Blood Pressure 134/68 - Exam GENERAL EXAM: Intubated, sedated 69-year-old female patient, critically ill. Intubated on a mechanical ventilator and the patient is sedated and paralyzed for now. HEAD: Normocephalic. EYES: Sluggish reaction of pupils, equal size. NOSE: Clear with pink turbinates. THROAT: Oral endotracheal and gastric tube secured in place. No erythema or exudates. NECK: No masses, no JVD. CHEST: No chest wall deformity. LUNGS: Equal air entry with crackles in the bilateral posterior bases. CVS: S1 and S2 normal with no audible murmur, irregular rhythm. Tachycardic. ABDOMEN: No hepatosplenomegaly, normal bowel sounds, no guarding or rigidity. SPINE: No scoliosis or deformity SKIN: No rashes CENTRAL NERVOUS SYSTEM: Sedated, tone is normal in all 4 extremities. EXTREMITIES: There is no peripheral edema. No clubbing, no cyanosis. Peripheral pulses are intact. - Labs CBC & Chem 7: 04/27/20 03:45 04/27/20 03:45 Labs: Abnormal Lab Results - Last 24 Hours (Table) 04/26/20 04/26/20 04/26/20 Range/Units 10:06 11:48 16:01 WBC (3.8-10.6) k/uL Hct (34.0-46.0) % Neutrophils # (1.3-7.7) k/uL Lymphocytes # (1.0-4.8) k/uL Monocytes # (0-1.0) k/uL Fibrinogen (200-500) mg/dL D-Dimer (<0.60) mg/L FEU ABG pH 7.29 L (7.35-7.45) ABG pCO2 60 H (35-45) mmHg ABG pO2 60 L (83-108) mmHg ABG HCO3 29 H (21-25) mmol/L ABG Total CO2 31 H (19-24) mmol/L ABG O2 Saturation 90.1 L (94-97) % BUN (7-17) mg/dL Creatinine (0.52-1.04) mg/dL Glucose (74-99) mg/dL POC Glucose (mg/dL) 170 H 134 H (75-99) mg/dL Calcium (8.4-10.2) mg/dL C-Reactive Protein (<10.0) mg/L 04/26/20 04/26/20 04/27/20 Range/Units 20:19 22:59 03:45 WBC (3.8-10.6) k/uL Hct (34.0-46.0) % Neutrophils # (1.3-7.7) k/uL Lymphocytes # (1.0-4.8) k/uL Monocytes # (0-1.0) k/uL Fibrinogen 605 H (200-500) mg/dL D-Dimer 3.35 H (<0.60) mg/L FEU ABG pH (7.35-7.45) ABG pCO2 (35-45) mmHg ABG pO2 (83-108) mmHg ABG HCO3 (21-25) mmol/L ABG Total CO2 (19-24) mmol/L ABG O2 Saturation (94-97) % BUN (7-17) mg/dL Creatinine (0.52-1.04) mg/dL Glucose (74-99) mg/dL POC Glucose (mg/dL) 180 H 167 H (75-99) mg/dL Calcium (8.4-10.2) mg/dL C-Reactive Protein (<10.0) mg/L 04/27/20 04/27/20 04/27/20 Range/Units 03:45 03:45 03:48 WBC 30.8 H (3.8-10.6) k/uL Hct 46.2 H (34.0-46.0) % Neutrophils # 29.1 H (1.3-7.7) k/uL Lymphocytes # 0.2 L (1.0-4.8) k/uL Monocytes # 1.1 H (0-1.0) k/uL Fibrinogen (200-500) mg/dL D-Dimer (<0.60) mg/L FEU ABG pH (7.35-7.45) ABG pCO2 (35-45) mmHg ABG pO2 (83-108) mmHg ABG HCO3 (21-25) mmol/L ABG Total CO2 (19-24) mmol/L ABG O2 Saturation (94-97) % BUN 71 H (7-17) mg/dL Creatinine 3.37 H (0.52-1.04) mg/dL Glucose 178 H (74-99) mg/dL POC Glucose (mg/dL) 155 H (75-99) mg/dL Calcium 7.8 L (8.4-10.2) mg/dL C-Reactive Protein 40.5 H (<10.0) mg/L 04/27/20 04/27/20 Range/Units 05:01 07:59 WBC (3.8-10.6) k/uL Hct (34.0-46.0) % Neutrophils # (1.3-7.7) k/uL Lymphocytes # (1.0-4.8) k/uL Monocytes # (0-1.0) k/uL Fibrinogen (200-500) mg/dL D-Dimer (<0.60) mg/L FEU ABG pH 7.22 L (7.35-7.45) ABG pCO2 64 H (35-45) mmHg ABG pO2 70 L (83-108) mmHg ABG HCO3 26 H (21-25) mmol/L ABG Total CO2 28 H (19-24) mmol/L ABG O2 Saturation 93.2 L (94-97) % BUN (7-17) mg/dL Creatinine (0.52-1.04) mg/dL Glucose (74-99) mg/dL POC Glucose (mg/dL) 145 H (75-99) mg/dL Calcium (8.4-10.2) mg/dL C-Reactive Protein (<10.0) mg/L Microbiology - Last 24 Hours (Table) 04/21/20 23:37 Blood Culture - Preliminary Blood No Growth after 120 hours Assessment and Plan Plan: 1 Acute hypoxemic respiratory failure secondary to acute COVID 19 pneumonia/pneumonitis, failed previous oxygenation treatments and required intubation and mechanical ventilatory support 04/24/2020. The patient completed a course of Remdesivir on the 04/16/2020, received 2 units of convalescent plasma patient remains on IV steroids and anticoagulation the form of Lovenox. The patient remains sadated and paralyzed and the patient is is on IV s olumedrol and empiric antibiotic coverage with IV Zosyn. For now, the patient is undergoing dialysis for acute kidney injury. The patient is on same vent setting for respiratory support. No major change in her chest x-ray findings compared to yesterday. 2 A. fib RVR, related to fever, and severe hypoxemia, currently on amiodarone drip and the patient is also on a Cardizem drip for rate control. 3 Possible urinary tract infection related to yeast, current empiric antibiotic coverage includes Zosyn and Diflucan was added 04/23/2020 4 acute kidney injury with a creatinine being up to 3.37 and the patient is undergoing hemodialysis for now 5 Obesity 6 Elevated d-dimer, without evidence of pulmonary embolism. Remains on Lovenox 50 mg sub daily and this was adjusted based on his underlying acute kidney injury in renal failure. D-dimer is being monitored. The less level of d-dimer was at 3.35. 7 Leukocytosis, possibly related to IV steroids, rule out possibility of a bacterial superinfection of pro-calcitonin is low and the patient has been on IV Zosyn since 2020.The pro-calcitonin level currently is at 0.39 from 04/22/2020. A repeat level will be obtained. 8 Elevated liver enzymes likely related to viral pneumonia 9 Elevated inflammatory markers related to acute COVID 19 pneumonia, And the levels remain quite elevated and repeat levels will be obtained. Plan: Continue vent support and the patient is up to 55% FiO2 and keep the rate of 32 and drop the flow down to 60 and repeated blood gases and 1 hour If condition and oxygenation and ventilation stable, she may be considered for a paralytic holiday. Meanwhile, she is in a combination of propofol and Nimbex. Sedated with propofol, paralyzed with Nimbex and the patient will be given a paralytic holiday Amiodarone and Cardizem drip for rate control Remains on IV Solu-Medrol, Lovenox, Zosyn, and the dose of Lovenox has been adjusted to a account for the acute kidney injury patient is currently receiving 50 mg subcu on a daily basis The patient is a hemodialysis yesterday with ultrafiltration of 1 L. Another dialysis session is expected to be done today. feeding for nutritional support Prognosis is poor Family is updated We will continue to follow and make further recommendations based on her clinical status Critical care time >30 minutes Time with Patient: Greater than 30 Time with Patient: Greater than 30
[2020-04-27] MEDS: CISATRACURIUM 200 MG in SODIUM CHLORIDE 0.9% 180 ML IV SCH (08:57)
[2020-04-27] MEDS ORDERED: ENOXAPARIN 60 MG/0.6 ML SYRINGE SQ SCH (09:00)
--- NOTE | 2020-04-27 09:21 | P.PN ---
Subjective Progress Note Date: 04/27/20 This is a 69-year-old female who is being treated for COVID pneumonia, respiratory failure on mechanical ventilator and also acute renal failure. Patient is going to have dialysis catheter inserted. We are seeing the patient because of atrial fibrillation. Patient was on IV amiodarone, which were change d to by mouth amiodarone. Yesterday. She is getting 400 mg by mouth twice a day. She is currently seem to be sinus rhythm with frequent APCs with short course of SVT. Chest x-ray. Continue show bilateral pneumonias. Patient is being followed by pulmonology and also nephrology. We'll continue current medical therapy. 04/27/2020: This patient developed A. fib with RVR last night. Patient was initiated on IV amiodarone bolus and drip. Patient is currently on 1 mg drip. Heart rate in the 90s to 100 range. Patient is still sedated and intubated on mechanical ventilator. She is also being treated for renal failure. From [facility], We'll continue amiodarone drip for now. A. fib with RVR related to underlying respiratory failure. Overall prognosis is guarded Objective - Vital Signs Vital signs: Vital Signs Temp 98.8 F 04/27/20 04:00 Pulse 128 H 04/27/20 07:00 Resp 32 H 04/27/20 07:00 BP 125/81 04/27/20 07:00 Pulse Ox 91 L 04/27/20 07:00 Intake & Output 04/26/20 04/27/20 04/27/20 18:59 06:59 18:59 Intake Total 8506.067 2774.458 75 Output Total 1115 90 10 Balance 667.291 2982.458 65 Weight 110.9 kg Intake: IV 736 636 53 Diana flush 36 36 3 Piperacillin-Tazobactam 3 100 .375 gm In Sodium Chloride 0.9% 100 ml @ 25 mls/hr IVPB Q8H [facility] Rx#: [id number] Sodium Chloride 0.9% 1, 600 600 50 000 ml @ 50 mls/hr IV . Q20H [facility] Rx#:[id number] Intake, IV Titration 555.159 601.458 Amount Amiodarone 360 mg In 200 Dextrose 5% in Water 200 ml @ 1 MG/MIN 33.333 mls/ hr IV .Q6H [facility] Rx#: [id number] Cisatracurium 200 mg In 189.200 Sodium Chloride 0.9% 180 ml @ 2 MCG/KG/MIN 12.516 mls/hr IV .[id number] [facility] Rx #:[id number] Diltiazem 125 mg In 125.000 Sodium Chloride 0.9% 100 ml @ 10 MG/HR 10 mls/hr IV .[id number] [facility] Rx#: [id number] propofoL 1,000 mg In 365.959 276.458 Empty Bag 1 bag @ Titrate IV .Q0M [facility] Rx#: [id number] Tube Feeding 176 264 22 Other 60 90 Output: Urine 115 90 10 Hemodialysis 1000 Other: Voiding Method Indwelling Catheter Indwelling Catheter ABP, PAP, CO, CI - Last Documented Arterial Blood Pressure 134/68 - Exam Patient is not personally examined because of covid infection. Information is gathered from nurses and other consultants notes - Labs CBC & Chem 7: 04/27/20 03:45 04/27/20 03:45 Labs: Abnormal Lab Results - Last 24 Hours (Table) 04/26/20 04/26/20 04/26/20 Range/Units 10:06 11:48 16:01 WBC (3.8-10.6) k/uL Hct (34.0-46.0) % Neutrophils # (1.3-7.7) k/uL Lymphocytes # (1.0-4.8) k/uL Monocytes # (0-1.0) k/uL Fibrinogen (200-500) mg/dL D-Dimer (<0.60) mg/L FEU ABG pH 7.29 L (7.35-7.45) ABG pCO2 60 H (35-45) mmHg ABG pO2 60 L (83-108) mmHg ABG HCO3 29 H (21-25) mmol/L ABG Total CO2 31 H (19-24) mmol/L ABG O2 Saturation 90.1 L (94-97) % BUN (7-17) mg/dL Creatinine (0.52-1.04) mg/dL Glucose (74-99) mg/dL POC Glucose (mg/dL) 170 H 134 H (75-99) mg/dL Calcium (8.4-10.2) mg/dL C-Reactive Protein (<10.0) mg/L 04/26/20 04/26/20 04/27/20 Range/Units 20:19 22:59 03:45 WBC (3.8-10.6) k/uL Hct (34.0-46.0) % Neutrophils # (1.3-7.7) k/uL Lymphocytes # (1.0-4.8) k/uL Monocytes # (0-1.0) k/uL Fibrinogen 605 H (200-500) mg/dL D-Dimer 3.35 H (<0.60) mg/L FEU ABG pH (7.35-7.45) ABG pCO2 (35-45) mmHg ABG pO2 (83-108) mmHg ABG HCO3 (21-25) mmol/L ABG Total CO2 (19-24) mmol/L ABG O2 Saturation (94-97) % BUN (7-17) mg/dL Creatinine (0.52-1.04) mg/dL Glucose (74-99) mg/dL POC Glucose (mg/dL) 180 H 167 H (75-99) mg/dL Calcium (8.4-10.2) mg/dL C-Reactive Protein (<10.0) mg/L 04/27/20 04/27/20 04/27/20 Range/Units 03:45 03:45 03:48 WBC 30.8 H (3.8-10.6) k/uL Hct 46.2 H (34.0-46.0) % Neutrophils # 29.1 H (1.3-7.7) k/uL Lymphocytes # 0.2 L (1.0-4.8) k/uL Monocytes # 1.1 H (0-1.0) k/uL Fibrinogen (200-500) mg/dL D-Dimer (<0.60) mg/L FEU ABG pH (7.35-7.45) ABG pCO2 (35-45) mmHg ABG pO2 (83-108) mmHg ABG HCO3 (21-25) mmol/L ABG Total CO2 (19-24) mmol/L ABG O2 Saturation (94-97) % BUN 71 H (7-17) mg/dL Creatinine 3.37 H (0.52-1.04) mg/dL Glucose 178 H (74-99) mg/dL POC Glucose (mg/dL) 155 H (75-99) mg/dL Calcium 7.8 L (8.4-10.2) mg/dL C-Reactive Protein 40.5 H (<10.0) mg/L 04/27/20 04/27/20 Range/Units 05:01 07:59 WBC (3.8-10.6) k/uL Hct (34.0-46.0) % Neutrophils # (1.3-7.7) k/uL Lymphocytes # (1.0-4.8) k/uL Monocytes # (0-1.0) k/uL Fibrinogen (200-500) mg/dL D-Dimer (<0.60) mg/L FEU ABG pH 7.22 L (7.35-7.45) ABG pCO2 64 H (35-45) mmHg ABG pO2 70 L (83-108) mmHg ABG HCO3 26 H (21-25) mmol/L ABG Total CO2 28 H (19-24) mmol/L ABG O2 Saturation 93.2 L (94-97) % BUN (7-17) mg/dL Creatinine (0.52-1.04) mg/dL Glucose (74-99) mg/dL POC Glucose (mg/dL) 145 H (75-99) mg/dL Calcium (8.4-10.2) mg/dL C-Reactive Protein (<10.0) mg/L Microbiology - Last 24 Hours (Table) 04/25/20 Unknown Gram Stain - Final Sputum Sputum Culture - Final 04/21/20 23:37 Blood Culture - Preliminary Blood No Growth after 120 hours Assessment and Plan (1) Atrial fibrillation with RVR Current Visit: Yes Status: Acute Code(s): I48.91 - UNSPECIFIED ATRIAL FIBRILLATION SNOMED Code(s): 240211523732665 (2) Pneumonia due to COVID-19 virus Current Visit: Yes Status: Acute Code(s): U07.1 - COVID-19; J12.82 - Pneumonia due to coronavirus disease 2019 SNOMED Code(s): 152282687901071670 (3) Acute renal failure Current Visit: Yes Status: Acute Code(s): N17.9 - ACUTE KIDNEY FAILURE, UNSPECIFIED SNOMED Code(s): 88172638 Plan: Continue with amiodarone drip at 1 mg. Continue rest of the management. Pro gnosis is guarded
--- NOTE | 2020-04-27 09:26 | P.PN ---
Subjective Patient is seen in follow-up for acute kidney injury. Started on hemodialysis April 26 for oliguria and volume overload. Receiving tube feeding. Intubated. On 55% FiO2. On high-dose Cardizem drip for A. fib. Urine output 5-10 mL an hour. Intubated. Irregular rate and rhythm. No gross distention noted. Exam discussed with the nurse. Objective - Vital Signs Vital signs: Vital Signs Temp 98.8 F 04/27/20 04:00 Pulse 128 H 04/27/20 07:00 Resp 32 H 04/27/20 07:00 BP 125/81 04/27/20 07:00 Pulse Ox 91 L 04/27/20 07:00 Intake & Output 04/26/20 04/27/20 04/27/20 18:59 06:59 18:59 Intake Total 6159.415 8395.458 75 Output Total 1115 90 10 Balance 147.698 0304.458 65 Weight 110.9 kg Intake: IV 736 636 53 [employer] flush 36 36 3 Piperacillin-Tazobactam 3 100 .375 gm In Sodium Chloride 0.9% 100 ml @ 25 mls/hr IVPB Q8H [facility] Rx#: [id number] Sodium Chloride 0.9% 1, 600 600 50 000 ml @ 50 mls/hr IV . Q20H [facility] Rx#:[id number] Intake, IV Titration 555.159 601.458 Amount Amiodarone 360 mg In 200 Dextrose 5% in Water 200 ml @ 1 MG/MIN 33.333 mls/ hr IV .Q6H [facility] Rx#: [id number] Cisatracurium 200 mg In 189.200 Sodium Chloride 0.9% 180 ml @ 2 MCG/KG/MIN 12.516 mls/hr IV .[id number] [facility] Rx #:[id number] Diltiazem 125 mg In 125.000 Sodium Chloride 0.9% 100 ml @ 10 MG/HR 10 mls/hr IV .[id number] [facility] Rx#: [id number] propofoL 1,000 mg In 365.959 276.458 Empty Bag 1 bag @ Titrate IV .Q0M [facility] Rx#: [id number] Tube Feeding 176 264 22 Other 60 90 Output: Urine 115 90 10 Hemodialysis 1000 Other: Voiding Method Indwelling Catheter Indwelling Catheter ABP, PAP, CO, CI - Last Documented Arterial Blood Pressure 134/68 - Labs CBC & Chem 7: 04/27/20 03:45 04/27/20 03:45 Labs: Abnormal Lab Results - Last 24 Hours (Table) 04/26/20 04/26/20 04/26/20 Range/Units 10:06 11:48 16:01 WBC (3.8-10.6) k/uL Hct (34.0-46.0) % Neutrophils # (1.3-7.7) k/uL Lymphocytes # (1.0-4.8) k/uL Monocytes # (0-1.0) k/uL Fibrinogen (200-500) mg/dL D-Dimer (<0.60) mg/L FEU ABG pH 7.29 L (7.35-7.45) ABG pCO2 60 H (35-45) mmHg ABG pO2 60 L (83-108) mmHg ABG HCO3 29 H (21-25) mmol/L ABG Total CO2 31 H (19-24) mmol/L ABG O2 Saturation 90.1 L (94-97) % BUN (7-17) mg/dL Creatinine (0.52-1.04) mg/dL Glucose (74-99) mg/dL POC Glucose (mg/dL) 170 H 134 H (75-99) mg/dL Calcium (8.4-10.2) mg/dL C-Reactive Protein (<10.0) mg/L 04/26/20 04/26/20 04/27/20 Range/Units 20:19 22:59 03:45 WBC (3.8-10.6) k/uL Hct (34.0-46.0) % Neutrophils # (1.3-7.7) k/uL Lymphocytes # (1.0-4.8) k/uL Monocytes # (0-1.0) k/uL Fibrinogen 605 H (200-500) mg/dL D-Dimer 3.35 H (<0.60) mg/L FEU ABG pH (7.35-7.45) ABG pCO2 (35-45) mmHg ABG pO2 (83-108) mmHg ABG HCO3 (21-25) mmol/L ABG Total CO2 (19-24) mmol/L ABG O2 Saturation (94-97) % BUN (7-17) mg/dL Creatinine (0.52-1.04) mg/dL Glucose (74-99) mg/dL POC Glucose (mg/dL) 180 H 167 H (75-99) mg/dL Calcium (8.4-10.2) mg/dL C-Reactive Protein (<10.0) mg/L 04/27/20 04/27/20 04/27/20 Range/Units 03:45 03:45 03:48 WBC 30.8 H (3.8-10.6) k/uL Hct 46.2 H (34.0-46.0) % Neutrophils # 29.1 H (1.3-7.7) k/uL Lymphocytes # 0.2 L (1.0-4.8) k/uL Monocytes # 1.1 H (0-1.0) k/uL Fibrinogen (200-500) mg/dL D-Dimer (<0.60) mg/L FEU ABG pH (7.35-7.45) ABG pCO2 (35-45) mmHg ABG pO2 (83-108) mmHg ABG HCO3 (21-25) mmol/L ABG Total CO2 (19-24) mmol/L ABG O2 Saturation (94-97) % BUN 71 H (7-17) mg/dL Creatinine 3.37 H (0.52-1.04) mg/dL Glucose 178 H (74-99) mg/dL POC Glucose (mg/dL) 155 H (75-99) mg/dL Calcium 7.8 L (8.4-10.2) mg/dL C-Reactive Protein 40.5 H (<10.0) mg/L 04/27/20 04/27/20 Range/Units 05:01 07:59 WBC (3.8-10.6) k/uL Hct (34.0-46.0) % Neutrophils # (1.3-7.7) k/uL Lymphocytes # (1.0-4.8) k/uL Monocytes # (0-1.0) k/uL Fibrinogen (200-500) mg/dL D-Dimer (<0.60) mg/L FEU ABG pH 7.22 L (7.35-7.45) ABG pCO2 64 H (35-45) mmHg ABG pO2 70 L (83-108) mmHg ABG HCO3 26 H (21-25) mmol/L ABG Total CO2 28 H (19-24) mmol/L ABG O2 Saturation 93.2 L (94-97) % BUN (7-17) mg/dL Creatinine (0.52-1.04) mg/dL Glucose (74-99) mg/dL POC Glucose (mg/dL) 145 H (75-99) mg/dL Calcium (8.4-10.2) mg/dL C-Reactive Protein (<10.0) mg/L Microbiology - Last 24 Hours (Table) 04/25/20 Unknown Gram Stain - Final Sputum Sputum Culture - Final 04/21/20 23:37 Blood Culture - Preliminary Blood No Growth after 120 hours Assessment and Plan Plan: Assessment: 1. Acute kidney injury secondary to ATN secondary to hypotension, hemodynamic instability and infection. Baseline creatinine near 1 and is 3.37 today. Ol iguric. Started on hemodialysis April 26. 2. Acute hypercapnic respiratory failure. Currently on 55% FiO2. 3. Hyperkalemia secondary to acute kidney injury, hyzaar and potassium supplementation. Better. 4. COVID-19 infection. 5. A. fib with RVR maintained on Cardizem drip. Plan: Maintain normal saline at 50 mL an hour. Maintain tube feeds. Stopped Hyzaar April 25. Status post IV Lasix 80 mg April 25. Avoid nephrotoxins. Wean FiO2. Dose of Lovenox to be adjusted for renal function - decreased. Currently seen while undergoing hemodialysis. Plan for another treatment tomorrow depending on hemodynamic and volume status.
[2020-04-27 10:33] LABS: Ferritin 1912.9 ng/mL (10.0-291.0)
[2020-04-27] MEDS: ENOXAPARIN 30 MG/0.3 ML SYRINGE SQ SCH (11:29)
[2020-04-27] MEDS: FAMOTIDINE 20 MG TAB OG-TUBE SCH (11:30)
[2020-04-27] MEDS: CHLORHEXIDINE GLUCONATE 15 ML CUP MUCOUS MEM SCH (11:30)
[2020-04-27] MEDS: ASCORBIC ACID 500 MG TAB PO SCH (11:30)
[2020-04-27] MEDS: CHOLECALCIFEROL 25 MCG (1000 IU) TABLET PO SCH (11:30)
[2020-04-27] MEDS: ZINC SULFATE 220 MG CAP PO SCH (11:30)
[2020-04-27] MEDS: THIAMINE 100 MG TAB PO SCH (11:30)
[2020-04-27] MEDS: MULTIVITAMINS, THERA 1 EACH TAB PO SCH (11:30)
[2020-04-27] MEDS: PIPERACILLIN-TAZOBACTAM 3.375 GM in SODIUM CHLORIDE 0.9% 100 ML IVPB SCH (11:31)
[2020-04-27] MEDS: FOLIC ACID 1 MG TAB PO SCH (11:35)
[2020-04-27] MEDS: FLUCONAZOLE IN NACL,ISO-OSM 100 MG in SALINE 1 50ML.BAG IVPB SCH (11:35)
[2020-04-27 11:51] LABS: Glucose,Whole Blood 149 mg/dL (75-99)
[2020-04-27] MEDS: AMIODARONE 360 MG in DEXTROSE 5% IN WATER 200 ML IV SCH ×4 (11:55→18:05)
[2020-04-27] MEDS: SODIUM CHLORIDE 0.9% 1,000 ML IV SCH (12:29)
[2020-04-27 15:33] LABS: Glucose,Whole Blood 161 mg/dL (75-99)
--- NOTE | 2020-04-27 15:41 | PN ---
PROGRESS NOTE DATE OF SERVICE: 04/27/2020 REASON FOR FOLLOWUP: Pneumonia. INTERVAL HISTORY: The patient is currently afebrile. The patient remains intubated on the vent. The patient is hemodynamically stable. FiO2 is currently at 55%. No significant purulent secretions in the ET or any diarrhea reported. PHYSICAL EXAMINATION: Her blood pressure is 119/68 with a pulse of 118, temperature 98. She is 91% on 55% FiO2. General description is a middle-aged female intubated on the vent. RESPIRATORY SYSTEM: Unlabored breathing with decreased intensity of breath sounds. No wheeze. HEART: S1, S2. Regular rate and rhythm. ABDOMEN: Soft. No tenderness. LABS: Hemoglobin is 14.7, white count 30,000, BUN of 71, creatinine 3.37. DIAGNOSTIC IMPRESSION AND PLAN: Patient with acute respiratory failure which is multifactorial in this patient who did have COVID-19 pneumonia. She completed her remdesivir therapy, currently on Solu-Medrol in addition to empiric antibiotic and antifungals; to continue. Monitor clinical course closely. Prognosis remains guarded. MMODL / IJN: [id number] /
[2020-04-27 20:53] LABS: Glucose,Whole Blood 140 mg/dL (75-99)
[2020-04-28 00:38] LABS: Glucose,Whole Blood 152 mg/dL (75-99)
[2020-04-28] MEDS: AMIODARONE 360 MG in DEXTROSE 5% IN WATER 200 ML IV SCH ×8 (00:48→20:59)
[2020-04-28] MEDS: INSULIN ASPART (NovoLOG) 100 UNIT/ML VIAL SQ SCH ×6 (00:51→21:59)
[2020-04-28] MEDS: CHLORHEXIDINE GLUCONATE 15 ML CUP MUCOUS MEM SCH ×3 (00:51→20:59)
[2020-04-28] MEDS: CISATRACURIUM 200 MG in SODIUM CHLORIDE 0.9% 180 ML IV SCH ×2 (00:52→17:39)
[2020-04-28] MEDS: PIPERACILLIN-TAZOBACTAM 3.375 GM in SODIUM CHLORIDE 0.9% 100 ML IVPB SCH ×2 (00:58→11:15)
[2020-04-28] MEDS: methylPREDNISolone SOD SUCCI 125 MG/2 ML VIAL IV SCH ×4 (00:58→18:07)
--- NOTE | 2020-04-28 01:12 | P.PN ---
Subjective Ms. Mccoy is a 69-year-old female with a past medical history of hypertension and thyroid disorder admitted to the hospital for acute hypoxic respiratory failure secondary to COVID 19 pneumonia. Patient has extensive bilateral interstitial pneumonia. She is on a low and pulmonary Dr. Mathews is following the patient. Patient received a convalescent plasma, is also on Remdesivir. On 04/17/2020- This morning patient was evaluated in the ICU. Patient is comfortably sitting in a chair states that her breathing is improving gradually. She denies having any chest pain or palpitations. No cough or hemoptysis. She denies having any swelling or for lower extremities. No abdominal pain nausea vomiting or diarrhea. She denies having any dysuria or hematuria, she has a Bryan's catheter in place. On reviewing her vitals temperature 98.1 heart rate 75 is 5817, blood pressure 1:30 bradycardia. Saturating at 96% on a Aervo -60%. On 04/18/2020 - patient was seen and examined in the ICU. Patient is sitting in a chair by the bedside, states that her breathing has worsened compared to yesterday. Patient is on high flow Airvo, saturating in the low 90s. She denies having any chest pain or palpitations. She complains of cough that is nonproductive. Patient had a chest x-ray done showing stable bilateral air space disease. As the patient was having few episodes of tachycardia, she was started on Lopressor this morning. Patient's inflammatory markers are noted to be high. On reviewing her vitals saturating at 90% on high flow Airvo, heart rate 70s to 80s, respiratory rate 20-25, blood pressure 106-67. In reviewing her labs white count of 29.3, hemoglobin 16.8, platelets 369. D-dimer 6.99, LDH 2969, CRP 63.9. On 04/19/2020 - patient is seen and examined in the ICU. She is currently on BiPAP, as her respiratory status has worsened compared to yesterday. Patient denies having any chest pain or palpitations. No abdominal pain nausea vomiting or diarrhea. No dysuria or hematuria. She is on BiPAP 14/6 and 100% FiO2. On reviewing her vitals temperature is 99.2, respiratory rate is 25, heart rate 70, blood pressure 10 9 x 71. Reviewing the labs white count of 27.3, hemoglobin 17.4, platelets 314. Sodium 133, potassium 4.4, chloride 90, bicarbonate 35, BUN 31, creatinine 0.72. Ferritin 3195, CRP 217 and LDH 2747. 04/20/2020 This is a pleasant 69 years old female with multiple medical problems was adm itted for bilateral Covid pneumonia, she is currently on aervo at 90%/60 L of oxygen, saturating 89%. Rest of Vitas looks stable Also she is on BiPAP All the night. She is able to eat and drink, no pressors She is on normal saline at 75 mL/h with adequate urine output Patient is currently ON Medrol 40 mg twice daily, Lovenox 60 mg twice Mary and vitamin C and zinc. She finished her remdisvir and convelecent plasma. 04/21/2020 Patient remains in the ICU bed and respiratory support for her bilateral Covid pneumonia. She still dyspneic especially with exertion and she still needs BiPAP during the day shift. Also she had a fever today of 102.2. Patient is empirically on Zosyn/calcitonin check today showing normal level at 0.07. She has leukocytosis of 29K. I agree with Zosyn and I recommended to continue with that for now. Also patient is on steroids 60 mg every 6 hours. As there is no more significant progress progress in her clinical picture Glucose is 123 and inflammatory markers still elevated 04/22/2020 this is a pleasant 69 yo F who is admitted to the ICU for covid pneumonia, she is still on BiPAP dependant , TNP is started for her nutrition for this reasone. her oxygen saturation is on low 90s% cxr: diffuse interstitial opacities and worsening airspace disease in the left lower lung. consider interstitial edema wbc is sligtly less 26K, she is currently continued on zosyn , and solumedrol 60 mg. and normal saline increased to 150 ml/hr. and lovenox 60 mg BID she finised her Remdisvir and convelescent Plasma. 04/23/2020 Patient looks very tired, she came Off the BiPAP today morning and she was placed back on airvo at 60 L she is back and forth between BiPAP and airvo, however she probably will need BiPAP at night Inflammatory markers and d-dimer increased, ferritin 3100 up to 3700 and d-dimer 3 up to 5 Chest x-ray showing bilateral middle and lower infiltrates with slight improvement Treatments with antibiotics Zosyn, fluconazole was added today. Also she is also on Solu-Medrol 60 mg, normal sling was decreased to 50 mL per hour, Lovenox 60 mg twice daily, TPN and she is on vitamin C and zinc 04/24/2020 Patient today her clinical condition deteriorated, she was hypoxic this morning with oxygen saturation in the 70s percent and she was tachycardic with heart rate 140-150, patient ended up being intubated in the morning and she was in an you onset of A. fib and started on Cardizem drip on 15 mg however her heart rate was still elevated, cardiology team were consulted, blood pressure was on the low normal side. Amiodarone drip was started. Cardiology team and Cardizem drip was shut to 15 mg/h. Also insulin drip for hyperglycemia with sugar more than 300. 04/25/2020 Patient was intubated yesterday for deteriorated respiratory status, ABG showing elevated pCO2 on 496 with acidosis. 7.0 and 7.1. Oxygen saturation is acceptable at 107. She remains on mechanical ventilation managed by pulmonary/critical care team, currently her bruits and draped with before meals at 40 to help with her acidosis. Her creatinine worsened today 0.5 up to 1.3, with potassium elevated as well as 5.5 nephrology team were consulted who ordered insulin/dextrose 50%, sodium bicarb 1 and Lasix 80 mg 1. Director Of Casework Services recommended hemodialysis and no improvement in 24 hours Chest x-ray showing pneumonia and edema which is stable from yesterday. Sugar improved and we could switch her insulin drip to insulin sliding scale A. fib is improved and converted to sinus rhythm with amiodarone which is switched to Pills Now per [employer] Wellness Coach, She Is Already on Anticoagulation 04/26/20 Patient remains in the ICU sedated and intubated with pulmonary/ critical care team following the case closely. Showing trending down leukocytosis to 20 6.1K. Creatinine up to 2.8, Patient is developing anuria with acute kidney injury, nephrology evaluation is appreciated and hemodialysis is initiated. Chest x-ray showing interstitial infiltrate especially in the mid to lower lungs Echocardiogram showed ejection fraction of 55-60%, and atrial fibrillation i mproved yesterday with amiodarone She remains on Solu-Medrol, Zosyn and fluconazole, normal sinus 50 and vitamin C and zinc Lovenox dose was adjusted to renal function down to 50 mg daily Prognosis remains guarded 04/27/2020 Patient with bilateral: With pneumonia that her purse and eventually got i ntubated, pulmonary/critical care team and several consultants are following the case, vent management as per pulmonary team. She has leukocytosis of 13.8 K. Creatinine today is 3.37 Patient undergoing hemodialysis for the last 2-3 days for acute kidney injury and [facility] Patient A. fib heart rate becomes uncontrolled today and her amiodarone to switch to a drip. Other medication including Solu-Medrol 60 mg, vitamin C and zinc, Zosyn and fluconazole, she is on normal saline at 50 mL/h and Lovenox dose dropped to 30 mg daily Review of systems N/a Active Medications Acetaminophen (Acetaminophen Tab 325 Mg Tab) 650 mg PO Q6HR PRN Albuterol Sulfate (Albuterol Hfa Inhaler) 2 puff INHALATION RT-QID PERRY Alprazolam (Alprazolam 0.25 Mg Tab) 0.25 mg PO TID PRN Ascorbic Acid (Ascorbic Acid 500 Mg Tab) 250 mg PO DAILY PERRY Chlorhexidine Gluconate (Chlorhexidine Gluconate 15 Ml Cup) 15 ml MUCOUS MEM BID PERRY Cholecalciferol (Cholecalciferol 1,000 Unit Tab) 1,000 unit PO DAILY PERRY Enoxaparin Sodium (Enoxaparin 60 Mg/0.6 Ml Syringe) 50 mg SQ DAILY PERRY Famotidine (Famotidine 20 Mg Tab) 20 mg OG-TUBE Q24HR [facility] Folic Acid (Folic Acid 1 Mg Tab) 1 mg PO DAILY@1200 P[facility]Y Hydromorphone HCl (Hydromorphone 1 Mg/Ml 1 Ml Syringe) 1 mg IVP Q2HR PRN Fluconazole/Sodium Chloride (100 mg/ IV Solution) 50 mls @ 50 mls/hr IVPB DAILY [facility] Sodium Chloride (Saline 0.9%) 1,000 mls @ 50 mls/hr IV .Q20H P[facility]Y Propofol 1,000 mg/ IV Solution 100 mls @ 0 mls/hr IV .Q0M PERRY; Protocol Cisatracurium Besylate 200 mg/ (Sodium Chloride) 200 mls @ 12.516 mls/hr IV .[id number] PERRY; Protocol Piperacillin Sod/Tazobactam (Sod 3.375 gm/ Sodium Chloride) 100 mls @ 25 mls/hr IVPB Q12H [facility] Diltiazem HCl 125 mg/ Sodium (Chloride) 125 mls @ 10 mls/hr IV .[id number] [facility] Amiodarone HCl 360 mg/ (Dextrose/Water) 200 mls @ 33.333 mls/hr IV .Q6H ONE; Protocol Insulin Aspart (Insulin Aspart (Novolog) 100 Unit/Ml Vial) 0 unit SQ Q4H PERRY; Protocol Levothyroxine Sodium (Levothyroxine 50 Mcg Tab) 50 mcg PO DAILY@0630 [facility] Melatonin (Melatonin 5 Mg Tablet) 5 mg PO HS PRN Methylprednisolone Sodium Succinate (Methylprednisolone Sod Succi 125 Mg/2 Ml Vial) 60 mg IV Q6HR [facility] Miscellaneous Information (Potassium Replacement Protocol 1 Each Misc) 1 each MISCELLANE DAILY PRN; Protocol Morphine Sulfate (Morphine Sulfate 2 Mg/Ml Syringe) 2 mg IVP Q6H PRN Multivitamins (Multivitamins, Thera 1 Each Tab) 1 each PO DAILY@1200 [facility] Naloxone HCl (Naloxone 0.4 Mg/Ml 1 Ml Vial) 0.2 mg IV Q2M PRN Ondansetron HCl (Ondansetron 4 Mg/2 Ml Vial) 4 mg IVP Q6HR PRN Thiamine HCl (Thiamine 100 Mg Tab) 100 mg PO DAILY@1200 [facility] Zinc Sulfate (Zinc Sulfate 220 Mg Cap) 220 mg PO DAILY [facility] Objective - Vital Signs Vital signs: Vital Signs Temp 97.9 F 04/27/20 16:00 Pulse 79 04/27/20 18:00 Resp 32 H 04/27/20 18:00 BP 103/67 04/27/20 18:00 Pulse Ox 90 L 04/27/20 18:00 Intake & Output 04/27/20 04/27/20 04/28/20 06:59 18:59 06:59 Intake Total 8143.387 9710.200 Output Total 90 1250 Balance 1701.458 761.200 Weight 110.9 kg 110.9 kg Intake: IV 636 1049 Diana flush 36 36 Amiodarone 360 mg In 363 Dextrose 5% in Water 200 ml @ 1 MG/MIN 33.333 mls/ hr IV .Q6H ONE Rx#: [id number] Fluconazole in NaCl,Iso- 50 Osm 100 mg In Saline 1 50ml.bag @ 50 mls/hr IVPB DAILY [facility] Rx#:[id number] Sodium Chloride 0.9% 1, 600 600 000 ml @ 50 mls/hr IV . Q20H PERRY Rx#:[id number] Intake, IV Titration 801.458 583.200 Amount Amiodarone 360 mg In 200 Dextrose 5% in Water 200 ml @ 1 MG/MIN 33.333 mls/ hr IV .Q6H ONE Rx#: [id number] Amiodarone 360 mg In 200 Dextrose 5% in Water 200 ml @ 1 MG/MIN 33.333 mls/ hr IV .Q6H [facility] Rx#: [id number] Cisatracurium 200 mg In 200 58.200 Sodium Chloride 0.9% 180 ml @ 2 MCG/KG/MIN 12.516 mls/hr IV .[id number] PERRY Rx #:[id number] Diltiazem 125 mg In 125.000 125 Sodium Chloride 0.9% 100 ml @ 10 MG/HR 10 mls/hr IV .[id number] PERRY Rx#: [id number] propofoL 1,000 mg In 276.458 200.000 Empty Bag 1 bag @ Titrate IV .Q0M [facility] Rx#: [id number] Tube Feeding 264 289 Other 90 90 Output: Urine 90 50 Hemodialysis 1200 Other: Voiding Method Indwelling Catheter Indwelling Catheter ABP, PAP, CO, CI - Last Documented Arterial Blood Pressure 103/56 - Exam -GENERAL: The patient is intubated and sedated HEENT: Pupils are round and equally reacting to light. EOMI. No scleral icterus. No conjunctival pallor. Normocephalic, atraumatic. No pharyngeal erythema. No thyromegaly. CARDIOVASCULAR: S1 and S2 present. No murmurs, rubs, or gallops. -PULMONARY: Chest is clear to auscultation, bilateral crepitation ABDOMEN: Soft, nontender, nondistended, normoactive bowel sounds. No palpable organomegaly. MUSCULOSKELETAL: No joint swelling or deformity. EXTREMITIES: No cyanosis, clubbing, or pedal edema. NEUROLOGICAL: Gross neurological examination did not reveal any focal deficits. SKIN: No rashes. no petechiae. - Labs CBC & Chem 7: 04/27/20 03:45 04/27/20 03:45 Labs: Abnormal Lab Results - Last 24 Hours (Table) 04/26/20 04/27/20 04/27/20 Range/Units 22:59 03:45 03:45 WBC (3.8-10.6) k/uL Hct (34.0-46.0) % Neutrophils # (1.3-7.7) k/uL Lymphocytes # (1.0-4.8) k/uL Monocytes # (0-1.0) k/uL Fibrinogen 605 H (200-500) mg/dL D-Dimer 3.35 H (<0.60) mg/L FEU ABG pH (7.35-7.45) ABG pCO2 (35-45) mmHg ABG pO2 (83-108) mmHg ABG HCO3 (21-25) mmol/L ABG Total CO2 (19-24) mmol/L ABG O2 Saturation (94-97) % BUN 71 H (7-17) mg/dL Creatinine 3.37 H (0.52-1.04) mg/dL Glucose 178 H (74-99) mg/dL POC Glucose (mg/dL) 167 H (75-99) mg/dL Calcium 7.8 L (8.4-10.2) mg/dL Ferritin 1912.9 H (10.0-291.0) ng/mL Lactate Dehydrogenase (313-618) U/L C-Reactive Protein 40.5 H (<10.0) mg/L 04/27/20 04/27/20 04/27/20 Range/Units 03:45 03:48 05:01 WBC 30.8 H (3.8-10.6) k/uL Hct 46.2 H (34.0-46.0) % Neutrophils # 29.1 H (1.3-7.7) k/uL Lymphocytes # 0.2 L (1.0-4.8) k/uL Monocytes # 1.1 H (0-1.0) k/uL Fibrinogen (200-500) mg/dL D-Dimer (<0.60) mg/L FEU ABG pH 7.22 L (7.35-7.45) ABG pCO2 64 H (35-45) mmHg ABG pO2 70 L (83-108) mmHg ABG HCO3 26 H (21-25) mmol/L ABG Total CO2 28 H (19-24) mmol/L ABG O2 Saturation 93.2 L (94-97) % BUN (7-17) mg/dL Creatinine (0.52-1.04) mg/dL Glucose (74-99) mg/dL POC Glucose (mg/dL) 155 H (75-99) mg/dL Calcium (8.4-10.2) mg/dL Ferritin (10.0-291.0) ng/mL Lactate Dehydrogenase (313-618) U/L C-Reactive Protein (<10.0) mg/L 04/27/20 04/27/20 04/27/20 Range/Units 07:59 11:49 13:32 WBC (3.8-10.6) k/uL Hct (34.0-46.0) % Neutrophils # (1.3-7.7) k/uL Lymphocytes # (1.0-4.8) k/uL Monocytes # (0-1.0) k/uL Fibrinogen (200-500) mg/dL D-Dimer (<0.60) mg/L FEU ABG pH (7.35-7.45) ABG pCO2 (35-45) mmHg ABG pO2 (83-108) mmHg ABG HCO3 (21-25) mmol/L ABG Total CO2 (19-24) mmol/L ABG O2 Saturation (94-97) % BUN (7-17) mg/dL Creatinine (0.52-1.04) mg/dL Glucose (74-99) mg/dL POC Glucose (mg/dL) 145 H 149 H (75-99) mg/dL Calcium (8.4-10.2) mg/dL Ferritin (10.0-291.0) ng/mL Lactate Dehydrogenase 1773 H (313-618) U/L C-Reactive Protein (<10.0) mg/L 04/27/20 Range/Units 15:31 WBC (3.8-10.6) k/uL Hct (34.0-46.0) % Neutrophils # (1.3-7.7) k/uL Lymphocytes # (1.0-4.8) k/uL Monocytes # (0-1.0) k/uL Fibrinogen (200-500) mg/dL D-Dimer (<0.60) mg/L FEU ABG pH (7.35-7.45) ABG pCO2 (35-45) mmHg ABG pO2 (83-108) mmHg ABG HCO3 (21-25) mmol/L ABG Total CO2 (19-24) mmol/L ABG O2 Saturation (94-97) % BUN (7-17) mg/dL Creatinine (0.52-1.04) mg/dL Glucose (74-99) mg/dL POC Glucose (mg/dL) 161 H (75-99) mg/dL Calcium (8.4-10.2) mg/dL Ferritin (10.0-291.0) ng/mL Lactate Dehydrogenase (313-618) U/L C-Reactive Protein (<10.0) mg/L Microbiology - Last 24 Hours (Table) 04/25/20 Unknown Gram Stain - Final Sputum Sputum Culture - Final 04/21/20 23:37 Blood Culture - Preliminary Blood No Growth after 120 hours Assessment and Plan Assessment: COVID 19 pneumonia Acute hypoxic respiratory failure-status post intubation and mechanical ventilation New onset A. fib with RVR Acute kidney injury with hyperkalemia Combined Metabolic acidosis and respiratory acidosis Increased d-dimer without evidence of PE Hyponatremia Leukocytosis Elevated and she telemetry markers Hypertension Hypothyroidism History of bilateral posterior tibial tendon repair Obesity with BMI of 35 Plan: This is a pleasant 69 years old female with Covid pneumonia and hypoxic respiratory failure. Continue with oxygen supplementation as needed, intubated on mechanical ventilation with pulmonary/critical care team and follow the case closely. With her inflammatory markers. Continue with Solu-Medrol and Lovenox and zinc and vitamin C. continue with Lovenox, continue tube feeding, continue with antibiotics and steroids. Also she is on amiodarone start hemodialysis per nephrology team recommended Monitor WBC and kidney function Labs and medication were reviewed.. Continue same treatment. Continue with symptomatic treatment. Resume home medication. Monitor lytes and vitals. DVT and GI prophylaxis. Further recommendations as per clinical course of the patient DVT prophylaxis: Subcutaneous Lovenox GI Prophylaxis: Pepcid Prognosis is guarded
[2020-04-28] MEDS: DILTIAZEM 125 MG in SODIUM CHLORIDE 0.9% 100 ML IV SCH ×2 (01:57→20:58)
[2020-04-28 04:37] LABS: ABG HCO3 25 mmol/L (21-25); ABG Oxygen Saturation 91.2 % (94-97); ABG PCO2 50 mmHg (35-45); ABG PH 7.31 (7.35-7.45); ABG PO2 61 mmHg (83-108); ABG TCO2 27 mmol/L (19-24)
[2020-04-28 04:51] LABS: Glucose,Whole Blood 150 mg/dL (75-99)
[2020-04-28 04:55] LABS: Allen Test Performed? no
[2020-04-28 05:06] LABS: Basophils # (A) 0.3 k/uL (0-0.2); Basophils % (A) 1 %; Eosinophils % (A) 0 %; HCT 41.9 % (34.0-46.0); HGB 13.4 gm/dL (11.4-16.0); Lymphocytes # (A) 0.2 k/uL (1.0-4.8); Lymphocytes % (A) 1 %; MCH 30.8 pg (25.0-35.0); MCHC 32.1 g/dL (31.0-37.0); MCV 95.9 fL (80.0-100.0); Monocytes % (A) 3 %; Neutrophils % (A) 95 %; Platelet Count 208 k/uL (150-450); RBC 4.37 m/uL (3.80-5.40); RDW 13.4 % (11.5-15.5); WBC 33.5 k/uL (3.8-10.6)
[2020-04-28 05:20] LABS: Albumin 2.3 g/dL (3.5-5.0); C Reactive Protein 21.9 mg/L (<10.0); Calcium 7.7 mg/dL (8.4-10.2); Potassium 4.6 mmol/L (3.5-5.1); Total Bilirubin 0.6 mg/dL (0.2-1.3); Total Protein 5.2 g/dL (6.3-8.2)
[2020-04-28 05:21] LABS: D-Dimer 3.82 mg/L FEU (<0.60)
[2020-04-28 05:31] LABS: Neutrophils # (A) 31.8 k/uL (1.3-7.7)
[2020-04-28] MEDS: LEVOTHYROXINE 50 MCG TAB PO SCH (06:15)
[2020-04-28] MEDS: CHOLECALCIFEROL 25 MCG (1000 IU) TABLET PO SCH (08:20)
[2020-04-28] MEDS: ASCORBIC ACID 500 MG TAB PO SCH (08:20)
[2020-04-28] MEDS: FOLIC ACID 1 MG TAB PO SCH (08:20)
[2020-04-28] MEDS: FLUCONAZOLE IN NACL,ISO-OSM 100 MG in SALINE 1 50ML.BAG IVPB SCH (08:20)
[2020-04-28] MEDS: ZINC SULFATE 220 MG CAP PO SCH (08:20)
[2020-04-28] MEDS: ENOXAPARIN 30 MG/0.3 ML SYRINGE SQ SCH (08:20)
[2020-04-28] MEDS: FAMOTIDINE 20 MG TAB OG-TUBE SCH (08:21)
[2020-04-28 08:26] LABS: Glucose,Whole Blood 162 mg/dL (75-99)
--- NOTE | 2020-04-28 08:59 | P.PN ---
Subjective Progress Note Date: 04/28/20 This 69-year-old white female patient who was admitted to the hospital on 04/11/2020 when she came in for evaluation of 1 week history of cough, fever, shortness of breath, decreased appetite and intermittent episodes of diarrhea. Patient was diagnosed with COVID 19 pneumonia, this was done via outpatient testing through the health Department. Patient initially presented at [facility], she was hypoxemic with a pulse ox in the 80s and she was placed on high flow oxygen and transferred to the [facility]. CT angiogram of the chest showed no evidence of pulmonary embolism, however it showed evidence of bilateral interstitial infiltrates consistent with COVID 19 pneumonitis. Patient completed her Remdesivir treatment on 04/16/2020, she received 2 units of convalescent plasma, she remains on IV steroids with IV Solu-Medrol. In view of her worsening hypoxemia patient was transferred to the intensive care unit, she is intubated on 04/24/2020 The patient is seen today 04/26/2020 and follow-up in the intensive care unit. She remains intubated on the mechanical ventilator. She was intubated on 04/24/2020 . Current settings are assist-control of 40, tidal volume 400, FiO2 60% and a PEEP of 15. Blood gases that a pH of 7.36 with a pCO2 of 50 and pO2 of 67. Chest x-ray from today is showing bilateral pulmonary infiltrates, interstitial and diffuse. ET tube is in a good location. I do not see any major interval change in her chest x-ray findings or the past 48 hours. She remains on 0.9 normal saline at 50 MLS per hour. Propofol at 50 mcg/kg/m. Nimb ex at 1.0 L micrograms per kilogram per minute. She is on amiodarone at 0.5 mg/m for AFIB/SVT. Her rate is better controlled today. She has a normal sinus rhythm for now and she is on po amiodarone. Chest x-ray with similar findings of bilateral groundglass opacity, air space disease which is stable compared to previous. She has received 2 units of convalescent plasma. She completed Remdesivir. Blood cultures reveal no growth. Urine culture revealed no growth. She was given IV Zosyn empirically. Remains on Solu-Medrol 60 mg every 6.Of significance is also development of an acute kidney injury. The patient's urine output is less than 5 mL an hour. Creatinine came up from a baseline of 0 point up to 1.34 and later on to 2.8. Nephrology is on the case. Ultrasound the kidneys was negative. Dialysis cath will be inserted today. Today's evaluation of 04/27/2020, I am seeing the patient for a follow-up. As mentioned earlier, this is a case of coronary via/fluid 19 related pneu monia/ARDS and the patient remains intubated on a mechanical ventilator. This morning, she is assist-control mode at the rate of 32 with a tidal volume of 100 and FiO2 of 60% with a PEEP of 15. The blood gases from today shows a pH of 7.21 with a pCO2 of 64 and pO2 of 70. The patient is very much success with the mechanical ventilator. The patient is still on propofol running at 40 mcg/kg per minute. She is also on Nimbex and she is paralyzed in the maxillary running at 1 mcg/kg per minute. I think it's time to give the patient a paralytic holiday today. Her peak airway pressure on a mechanical ventilator is in order of 33 with a static pressure of around 30. The chest x-ray from today is showing a bilateral pulmonary infiltrates which is more so in the lower lobes bilaterally. No major interval change compared to yesterday. ET tube is in a good location. NG tube was also within the stomach and is also in a good location. IV fluids are running in the form of 0.9 at the rate of 50 mL an hour. The neck fluid balance over the past 24 hours is +1.9 L and 4.1 L earlier than 3.0 L earlier. As such the patient has been a significant positive fluid balance pH is undergoing hemodialysis in the last bout of hemodialysis was yesterday. A total of 1 L of fluid was removed. I think ultrafiltration is to be somewhat aggressively. The white cell count is at 30 the creatinine today is at 3.37 with a BUN of 71. The patient also has a white cell count of 30. Hemoglobin is at 14.7. Enteral feeding for nutritional support is running and the patient is on Nepro. Inflammatory markers today showed a CRP of 40 which is lower compared to yesterday. LDH is still pending. Last LDH level was elevated at 2444 and a progressive on 11 was 0.39 which is essentially low knowing that the patient has an underlying acute kidney injury. The patient's cardiac rhythm is A. fib and the rate is ranging between 100 and 120. The patient is currently on amiodarone at 1 mg/m 04/28/2020, the patient remains intubated on a mechanical ventilator. The patient has a Covid 19 related pneumonia/ARDS. On today's evaluation, the patient is on propofol running at 50 mcg/kg per minute. The patient seems to be off the paralytics since yesterday. On today's evaluation, she was breathing quite rapidly and she was tachypneic and the pulses was in the mid 80s. Earlier this morning showed an assist-control mode of mechanical ventilation at the rate of 32 with a tidal volume of 400 and FiO2 of 65% with a PEEP of 15. The blood gases from today showed a pH of 7.31 with a pCO2 of 50 and pO2 of 61. Chest x- ray shows limited infiltration of the lung bases bilaterally. The white cell co unt was at 33.5. Hemoglobin is 13.4. The d-dimer is at 3.82. The LDH level is down to 1581. The CRP level is down to 21.9. The patient is not making any urine. Urine output is minimal at one time. BUN is at 63 with a creatinine of 3.8 and the rest of the electrolytes are all within normal limits. The patient is receiving her first session of hemodialysis today. Meanwhile, the patient remains on a A. fib rhythm and the patient is on amiodarone at 1 mg per minute and the patient is also on Cardizem running at 15mg an hour. She is less tachycardic while on treatment. Also, the patient is feeding for nutritional support and the patient is on vital high protein running at the rate of 27 mL an hour. The patient remains on Solu-Medrol at a dose of 60 mg every 6 hours, we were considering Actemra , and based on our discussion with the pharmacy, and based on the availability of the medication and its limited criteria for use, we were not able to deliver the medication to this patient. Objective - Vital Signs Vital signs: Vital Signs Temp 98.6 F 04/27/20 20:00 Pulse 114 H 04/28/20 08:00 Resp 29 H 04/28/20 08:00 BP 118/77 01/19/21 23:00 Pulse Ox 89 L 04/28/20 08:00 Intake & Output 04/27/20 04/28/20 04/28/20 18:59 06:59 18:59 Intake Total 2011.200 1494.057 110 Output Total 1250 110 0 Balance 350.369 9619.057 110 Weight 110.9 kg 115.4 kg Intake: IV 1049 689 53 [place] flush 36 39 3 Amiodarone 360 mg In 363 Dextrose 5% in Water 200 ml @ 1 MG/MIN 33.333 mls/ hr IV .Q6H ONE Rx#: [id number] Fluconazole in NaCl,Iso- 50 Osm 100 mg In Saline 1 50ml.bag @ 50 mls/hr IVPB DAILY [facility] Rx#:[id number] Sodium Chloride 0.9% 1, 600 650 50 000 ml @ 50 mls/hr IV . Q20H [facility] Rx#:[id number] Intake, IV Titration 583.200 805.057 Amount Amiodarone 360 mg In 200 400 Dextrose 5% in Water 200 ml @ 1 MG/MIN 33.333 mls/ hr IV .Q6H [facility] Rx#: [id number] Cisatracurium 200 mg In 58.200 Sodium Chloride 0.9% 180 ml @ 2 MCG/KG/MIN 12.516 mls/hr IV .[id number] [facility] Rx #:[id number] Diltiazem 125 mg In 125 118 Sodium Chloride 0.9% 100 ml @ 10 MG/HR 10 mls/hr IV .[id number] [facility] Rx#: [id number] propofoL 1,000 mg In 200.000 287.057 Empty Bag 1 bag @ Titrate IV .Q0M [facility] Rx#: [id number] Tube Feeding 289 27 Other 90 30 Output: Urine 50 110 0 Hemodialysis 1200 Other: Voiding Method Indwelling Catheter Indwelling Catheter ABP, PAP, CO, CI - Last Documented Arterial Blood Pressure 140/63 - Exam GENERAL EXAM: Intubated, sedated 69-year-old female patient, critically ill. Intubated on a mechanical ventilator and the patient is sedated and she is off paralytics for now HEAD: Normocephalic. EYES: Sluggish reaction of pupils, equal size. NOSE: Clear with pink turbinates. THROAT: Oral endotracheal and gastric tube secured in place. No erythema or exudates. NECK: No masses, no JVD. CHEST: No chest wall deformity. LUNGS: Equal air entry with crackles in the bilateral posterior bases. CVS: S1 and S2 normal with no audible murmur, irregular rhythm. Tachycardic. ABDOMEN: No hepatosplenomegaly, normal bowel sounds, no guarding or rigidity. SPINE: No scoliosis or deformity SKIN: No rashes CENTRAL NERVOUS SYSTEM: Sedated, tone is normal in all 4 extremities. EXTREMITIES: There is no peripheral edema. No clubbing, no cyanosis. Peripheral pulses are intact. - Labs CBC & Chem 7: 04/28/20 04:45 04/28/20 04:45 Labs: Abnormal Lab Results - Last 24 Hours (Table) 04/27/20 04/27/20 04/27/20 Range/Units 03:45 11:49 13:32 WBC (3.8-10.6) k/uL Neutrophils # (1.3-7.7) k/uL Lymphocytes # (1.0-4.8) k/uL Basophils # (0-0.2) k/uL Fibrinogen (200-500) mg/dL D-Dimer (<0.60) mg/L FEU ABG pH (7.35-7.45) ABG pCO2 (35-45) mmHg ABG pO2 (83-108) mmHg ABG Total CO2 (19-24) mmol/L ABG O2 Saturation (94-97) % Sodium (137-145) mmol/L BUN (7-17) mg/dL Creatinine (0.52-1.04) mg/dL Glucose (74-99) mg/dL POC Glucose (mg/dL) 149 H (75-99) mg/dL Calcium (8.4-10.2) mg/dL Ferritin 1912.9 H (10.0-291.0) ng/mL ALT (4-34) U/L Lactate Dehydrogenase 1773 H (313-618) U/L C-Reactive Protein (<10.0) mg/L Total Protein (6.3-8.2) g/dL Albumin (3.5-5.0) g/dL 04/27/20 04/27/20 04/28/20 Range/Units 15:31 20:51 00:36 WBC (3.8-10.6) k/uL Neutrophils # (1.3-7.7) k/uL Lymphocytes # (1.0-4.8) k/uL Basophils # (0-0.2) k/uL Fibrinogen (200-500) mg/dL D-Dimer (<0.60) mg/L FEU ABG pH (7.35-7.45) ABG pCO2 (35-45) mmHg ABG pO2 (83-108) mmHg ABG Total CO2 (19-24) mmol/L ABG O2 Saturation (94-97) % Sodium (137-145) mmol/L BUN (7-17) mg/dL Creatinine (0.52-1.04) mg/dL Glucose (74-99) mg/dL POC Glucose (mg/dL) 161 H 140 H 152 H (75-99) mg/dL Calcium (8.4-10.2) mg/dL Ferritin (10.0-291.0) ng/mL ALT (4-34) U/L Lactate Dehydrogenase (313-618) U/L C-Reactive Protein (<10.0) mg/L Total Protein (6.3-8.2) g/dL Albumin (3.5-5.0) g/dL 04/28/20 04/28/20 04/28/20 Range/Units 04:36 04:45 04:45 WBC 33.5 H (3.8-10.6) k/uL Neutrophils # 31.8 H (1.3-7.7) k/uL Lymphocytes # 0.2 L (1.0-4.8) k/uL Basophils # 0.3 H (0-0.2) k/uL Fibrinogen (200-500) mg/dL D-Dimer (<0.60) mg/L FEU ABG pH 7.31 L (7.35-7.45) ABG pCO2 50 H (35-45) mmHg ABG pO2 61 L (83-108) mmHg ABG Total CO2 27 H (19-24) mmol/L ABG O2 Saturation 91.2 L (94-97) % Sodium 134 L (137-145) mmol/L BUN 73 H (7-17) mg/dL Creatinine 3.82 H (0.52-1.04) mg/dL Glucose 163 H (74-99) mg/dL POC Glucose (mg/dL) (75-99) mg/dL Calcium 7.7 L (8.4-10.2) mg/dL Ferritin (10.0-291.0) ng/mL ALT 45 H (4-34) U/L Lactate Dehydrogenase 1581 H (313-618) U/L C-Reactive Protein 21.9 H (<10.0) mg/L Total Protein 5.2 L (6.3-8.2) g/dL Albumin 2.3 L (3.5-5.0) g/dL 04/28/20 04/28/20 04/28/20 Range/Units 04:45 04:50 08:25 WBC (3.8-10.6) k/uL Neutrophils # (1.3-7.7) k/uL Lymphocytes # (1.0-4.8) k/uL Basophils # (0-0.2) k/uL Fibrinogen 556 H (200-500) mg/dL D-Dimer 3.82 H (<0.60) mg/L FEU ABG pH (7.35-7.45) ABG pCO2 (35-45) mmHg ABG pO2 (83-108) mmHg ABG Total CO2 (19-24) mmol/L ABG O2 Saturation (94-97) % Sodium (137-145) mmol/L BUN (7-17) mg/dL Creatinine (0.52-1.04) mg/dL Glucose (74-99) mg/dL POC Glucose (mg/dL) 150 H 162 H (75-99) mg/dL Calcium (8.4-10.2) mg/dL Ferritin (10.0-291.0) ng/mL ALT (4-34) U/L Lactate Dehydrogenase (313-618) U/L C-Reactive Protein (<10.0) mg/L Total Protein (6.3-8.2) g/dL Albumin (3.5-5.0) g/dL Microbiology - Last 24 Hours (Table) 04/21/20 23:37 Blood Culture - Final Blood No Growth after 144 hours 04/25/20 Unknown Gram Stain - Final Sputum Sputum Culture - Final Assessment and Plan Plan: 1 Acute hypoxemic respiratory failure secondary to acute COVID 19 pneumonia/pneumonitis, failed previous oxygenation treatments and required intubation and mechanical ventilatory support 04/24/2020. The patient completed a course of Remdesivir on the 04/16/2020, received 2 units of convalescent plasma patient remains on IV steroids and anticoagulation the form of Lovenox. The patient remains sadated and paralyzed and the patient is is on IV solumedrol and empiric antibiotic coverage with IV Zosyn. As you're improvement in the patient's overall pulmonary status. In fact on today's evaluation, she was off the maximum the patient was quite tachypneic and seems to be labored with her breathing. Based on that, some ventilator changes were done and the blood gases to follow. Chest x-ray was reviewed. Blood gases was reviewed. No major interval change compared to yesterday. 2 A. fib RVR, currently on amiodarone drip and the patient is also on a Cardizem drip for rate control. 3 Possible urinary tract infection related to yeast, current empiric antibiotic coverage includes Zosyn and Diflucan was added 04/23/2020 4 acute kidney injury with a creatinine being up to 3.82 and the patient is undergoing hemodialysis for now first session of hemodialysis is being administered at this point in time. 5 Obesity 6 Elevated d-dimer, without evidence of pulmonary embolism. Remains on Lovenox 30 mg sub daily and this was adjusted based on his underlying acute kidney injury in renal failure. D-dimer is being monitored. The less level of d-dimer was at 3.82 7 Leukocytosis, possibly related to IV steroids, rule out possibility of a bacterial superinfection of pro-calcitonin is low and the patient has been on IV Zosyn since 2020.The pro-calcitonin level currently is at 0.39 from 04/22/2020. A repeat level will be obtained. Cell count is comparable to yesterday 8 Elevated liver enzymes likely related to viral pneumonia 9 Elevated inflammatory markers related to acute COVID 19 pneumonia, And the levels remain quite elevated and repeat levels will be obtained. There have been some drop in the level of LDH and CRP compared to yesterday Plan: She was taken off the paralytics and the patient is on propofol. We'll add fentanyl for sedation and synchrony with the mechanical ventilator Switch this patient to obesity plus mode at the rate of 26 tidal volume of 450, I time of 0.9, FiO2 of 70% with a PEEP of 16 and the patient will have a follow- up blood gases done. Amiodarone and Cardizem drip for rate control Remains on IV Solu-Medrol, Lovenox, Zosyn, and the dose of Lovenox has been adjusted to a account for the acute kidney injury patient is currently receiving 30 mg subcu on a daily basis The patient is a hemodialysis yesterday with ultrafiltration of 1.2 L. Another dialysis session is expected to be done today. This is her third session feeding for nutritional support, currently on vital high protein Prognosis is poor Family is updated We will continue to follow and make further recommendations based on her clinical status Critical care time >30 minutes Time with Patient: Greater than 30 Time with Patient: Greater than 30
--- NOTE | 2020-04-28 09:12 | XR ---
EXAMINATION TYPE: XR chest 1V portable DATE OF EXAM: 04/28/2020 COMPARISON: Prior chest x-ray 04/27/2020 HISTORY: Intubated TECHNIQUE: Single frontal view of the chest is obtained. FINDINGS: Endotracheal tube, NG tube, left extremity PICC line with the tip overlying the left innom inate vein all again noted, there are overlying leads. There is no evident pneumothorax or pleural ef fusion. Bilateral airspace disease persists. IMPRESSION: Similar findings to prior exam. IMPRESSION: No acute process.
[2020-04-28] MEDS: fentaNYL (PF) 1,000 MCG in SODIUM CHLORIDE 0.9% 80 ML IV SCH (09:25)
[2020-04-28] MEDS: ALBUTEROL HFA INHALER INHALATION SCH ×4 (09:53→19:09)
[2020-04-28] MEDS: SODIUM CHLORIDE 0.9% 1,000 ML IV SCH (10:32)
--- NOTE | 2020-04-28 10:38 | P.PN ---
Subjective Patient is seen in follow-up for acute kidney injury. Started on hemodialysis April 26 for oliguria and volume overload. Receiving tube feeding. Intubated. On 70% FiO2. On Cardizem as well as amiodarone drip for A. fib. Remains oliguric. Tolerating dialysis well. Intubated. Irregular rate and rhythm. No gross distention noted. Trace edema. Objective - Vital Signs Vital signs: Vital Signs Temp 98.6 F 04/27/20 20:00 Pulse 105 H 04/28/20 10:00 Resp 32 H 04/28/20 10:00 BP 118/77 04/27/20 23:00 Pulse Ox 83 L 04/28/20 10:00 Intake & Output 04/27/20 04/28/20 04/28/20 18:59 06:59 18:59 Intake Total 2011.200 1494.057 110 Output Total 1250 110 0 Balance 642.826 1697.057 110 Weight 110.9 kg 115.4 kg Intake: IV 1049 689 53 [place] flush 36 39 3 Amiodarone 360 mg In 363 Dextrose 5% in Water 200 ml @ 1 MG/MIN 33.333 mls/ hr IV .Q6H [facility] Rx#: [id number] Fluconazole in NaCl,Iso- 50 Osm 100 mg In Saline 1 50ml.bag @ 50 mls/hr IVPB DAILY [facility] Rx#:[id number] Sodium Chloride 0.9% 1, 600 650 50 000 ml @ 50 mls/hr IV . Q20H [facility] Rx#:[id number] Intake, IV Titration 583.200 805.057 Amount Amiodarone 360 mg In 200 400 Dextrose 5% in Water 200 ml @ 1 MG/MIN 33.333 mls/ hr IV .Q6H [facility] Rx#: [id number] Cisatracurium 200 mg In 58.200 Sodium Chloride 0.9% 180 ml @ 2 MCG/KG/MIN 12.516 mls/hr IV .[id number] [facility] Rx #:[id number] Diltiazem 125 mg In 125 118 Sodium Chloride 0.9% 100 ml @ 10 MG/HR 10 mls/hr IV .[id number] [facility] Rx#: [id number] propofoL 1,000 mg In 200.000 287.057 Empty Bag 1 bag @ Titrate IV .Q0M [facility] Rx#: [id number] Tube Feeding 289 27 Other 90 30 Output: Urine 50 110 0 Hemodialysis 1200 Other: Voiding Method Indwelling Catheter Indwelling Catheter ABP, PAP, CO, CI - Last Documented Arterial Blood Pressure 103/58 - Labs CBC & Chem 7: 04/28/20 04:45 04/28/20 04:45 Labs: Abnormal Lab Results - Last 24 Hours (Table) 04/27/20 04/27/20 04/27/20 Range/Units 03:45 11:49 13:32 WBC (3.8-10.6) k/uL Neutrophils # (1.3-7.7) k/uL Lymphocytes # (1.0-4.8) k/uL Basophils # (0-0.2) k/uL Fibrinogen (200-500) mg/dL D-Dimer (<0.60) mg/L FEU ABG pH (7.35-7.45) ABG pCO2 (35-45) mmHg ABG pO2 (83-108) mmHg ABG Total CO2 (19-24) mmol/L ABG O2 Saturation (94-97) % Sodium (137-145) mmol/L BUN (7-17) mg/dL Creatinine (0.52-1.04) mg/dL Glucose (74-99) mg/dL POC Glucose (mg/dL) 149 H (75-99) mg/dL Calcium (8.4-10.2) mg/dL Ferritin 1912.9 H (10.0-291.0) ng/mL ALT (4-34) U/L Lactate Dehydrogenase 1773 H (313-618) U/L C-Reactive Protein (<10.0) mg/L Total Protein (6.3-8.2) g/dL Albumin (3.5-5.0) g/dL 04/27/20 04/27/20 04/28/20 Range/Units 15:31 20:51 00:36 WBC (3.8-10.6) k/uL Neutrophils # (1.3-7.7) k/uL Lymphocytes # (1.0-4.8) k/uL Basophils # (0-0.2) k/uL Fibrinogen (200-500) mg/dL D-Dimer (<0.60) mg/L FEU ABG pH (7.35-7.45) ABG pCO2 (35-45) mmHg ABG pO2 (83-108) mmHg ABG Total CO2 (19-24) mmol/L ABG O2 Saturation (94-97) % Sodium (137-145) mmol/L BUN (7-17) mg/dL Creatinine (0.52-1.04) mg/dL Glucose (74-99) mg/dL POC Glucose (mg/dL) 161 H 140 H 152 H (75-99) mg/dL Calcium (8.4-10.2) mg/dL Ferritin (10.0-291.0) ng/mL ALT (4-34) U/L Lactate Dehydrogenase (313-618) U/L C-Reactive Protein (<10.0) mg/L Total Protein (6.3-8.2) g/dL Albumin (3.5-5.0) g/dL 04/28/20 04/28/20 04/28/20 Range/Units 04:36 04:45 04:45 WBC 33.5 H (3.8-10.6) k/uL Neutrophils # 31.8 H (1.3-7.7) k/uL Lymphocytes # 0.2 L (1.0-4.8) k/uL Basophils # 0.3 H (0-0.2) k/uL Fibrinogen (200-500) mg/dL D-Dimer (<0.60) mg/L FEU ABG pH 7.31 L (7.35-7.45) ABG pCO2 50 H (35-45) mmHg ABG pO2 61 L (83-108) mmHg ABG Total CO2 27 H (19-24) mmol/L ABG O2 Saturation 91.2 L (94-97) % Sodium 134 L (137-145) mmol/L BUN 73 H (7-17) mg/dL Creatinine 3.82 H (0.52-1.04) mg/dL Glucose 163 H (74-99) mg/dL POC Glucose (mg/dL) (75-99) mg/dL Calcium 7.7 L (8.4-10.2) mg/dL Ferritin (10.0-291.0) ng/mL ALT 45 H (4-34) U/L Lactate Dehydrogenase 1581 H (313-618) U/L C-Reactive Protein 21.9 H (<10.0) mg/L Total Protein 5.2 L (6.3-8.2) g/dL Albumin 2.3 L (3.5-5.0) g/dL 04/28/20 04/28/20 04/28/20 Range/Units 04:45 04:50 08:25 WBC (3.8-10.6) k/uL Neutrophils # (1.3-7.7) k/uL Lymphocytes # (1.0-4.8) k/uL Basophils # (0-0.2) k/uL Fibrinogen 556 H (200-500) mg/dL D-Dimer 3.82 H (<0.60) mg/L FEU ABG pH (7.35-7.45) ABG pCO2 (35-45) mmHg ABG pO2 (83-108) mmHg ABG Total CO2 (19-24) mmol/L ABG O2 Saturation (94-97) % Sodium (137-145) mmol/L BUN (7-17) mg/dL Creatinine (0.52-1.04) mg/dL Glucose (74-99) mg/dL POC Glucose (mg/dL) 150 H 162 H (75-99) mg/dL Calcium (8.4-10.2) mg/dL Ferritin (10.0-291.0) ng/mL ALT (4-34) U/L Lactate Dehydrogenase (313-618) U/L C-Reactive Protein (<10.0) mg/L Total Protein (6.3-8.2) g/dL Albumin (3.5-5.0) g/dL Microbiology - Last 24 Hours (Table) 04/21/20 23:37 Blood Culture - Final Blood No Growth after 144 hours 04/25/20 Unknown Gram Stain - Final Sputum Sputum Culture - Final Assessment and Plan Plan: Assessment: 1. Acute kidney injury secondary to ATN secondary to hypotension, hemodynamic instability and infection. Baseline creatinine near 1 and is 3.82 today. Oliguric. Started on hemodialysis April 26. 2. Acute hypercapnic/hypoxic respiratory failure. Currently on 70% FiO2. 3. Hyperkalemia secondary to acute kidney injury, hyzaar and potassium supplementation. Better. 4. COVID-19 infection. 5. A. fib with RVR maintained on Cardizem and amiodarone drip. Plan: Hep-Lock IV fluids. Maintain tube feeds. Stopped Hyzaar April 25. Status post IV Lasix 80 mg April 25. Avoid nephrotoxins. Wean FiO2. Dose of Lovenox to be adjusted for renal function - decreased. Currently seen while undergoing hemodialysis. Continue to assess on daily basis.
[2020-04-28 10:45] LABS: ABG Base Excess 0.2 mmol/L; ABG HCO3 27 mmol/L (21-25); ABG Oxygen Saturation 87.2 % (94-97); ABG PCO2 54 mmHg (35-45); ABG TCO2 28 mmol/L (19-24)
[2020-04-28 10:46] LABS: ABG PO2 54 mmHg (83-108); Allen Test Performed? no
[2020-04-28] MEDS: THIAMINE 100 MG TAB PO SCH (11:16)
[2020-04-28] MEDS: MULTIVITAMINS, THERA 1 EACH TAB PO SCH (11:16)
[2020-04-28 11:20] LABS: Ferritin 2186.1 ng/mL (10.0-291.0)
[2020-04-28 11:21] LABS: Glucose,Whole Blood 102 mg/dL (75-99)
[2020-04-28 11:46] LABS: Glucose,Whole Blood 113 mg/dL (75-99)
--- NOTE | 2020-04-28 12:13 | P.PN ---
Subjective Progress Note Date: 04/28/20 This is a 69-year-old female who is being treated for COVID pneumonia, respiratory failure on mechanical ventilator and also acute renal failure. Patient is going to have dialysis catheter inserted. We are seeing the patient because of atrial fibrillation. Patient was on IV amiodarone, which were change d to by mouth amiodarone. Yesterday. She is getting 400 mg by mouth twice a day. She is currently seem to be sinus rhythm with frequent APCs with short course of SVT. Chest x-ray. Continue show bilateral pneumonias. Patient is being followed by pulmonology and also nephrology. We'll continue current medical therapy. 04/27/2020: This patient developed A. fib with RVR last night. Patient was initiated on IV amiodarone bolus and drip. Patient is currently on 1 mg drip. Heart rate in the 90s to 100 range. Patient is still sedated and intubated on mechanical ventilator. She is also being treated for renal failure. From [facility] standpoin, We'll continue amiodarone drip for now. A. fib with RVR related to underlying respiratory failure. Overall prognosis is guarded. 04/28/20: This patient is still on mechanical ventilation. Patient is requiring Levophed for blood pressure support. Patient is also on IV Cardizem and also IV amiodarone on heart rates in the 80s 70s and 80s. Patient doesn't have a urine output and she is on dialysis. Overall patient clinical status remains critical. From cardiac standpoint we'll continue amiodarone and Cardizem for rate control. We'll continue with ventilatory support. Pulmonary and also nephrology is following. . Patient prognosis is poor. Objective - Vital Signs Vital signs: Vital Signs Temp 98.6 F 04/27/20 20:00 Pulse 105 H 04/28/20 10:00 Resp 32 H 04/28/20 10:00 BP 118/77 04/27/20 23:00 Pulse Ox 83 L 04/28/20 10:00 Intake & Output 04/27/20 04/28/20 04/28/20 18:59 06:59 18:59 Intake Total 2011.200 1494.057 420 Output Total 1250 110 10 Balance 704.484 7799.057 410 Weight 110.9 kg 115.4 kg Intake: IV 1049 689 209 [place] flush 36 39 9 Amiodarone 360 mg In 363 Dextrose 5% in Water 200 ml @ 1 MG/MIN 33.333 mls/ hr IV .Q6H ONE Rx#: [id number] Fluconazole in NaCl,Iso- 50 50 Osm 100 mg In Saline 1 50ml.bag @ 50 mls/hr IVPB DAILY [facility] Rx#:[id number] Sodium Chloride 0.9% 1, 600 650 150 000 ml @ 50 mls/hr IV . Q20H [facility] Rx#:[id number] Intake, IV Titration 583.200 805.057 100 Amount Amiodarone 360 mg In 200 400 Dextrose 5% in Water 200 ml @ 1 MG/MIN 33.333 mls/ hr IV .Q6H [facility] Rx#: [id number] Cisatracurium 200 mg In 58.200 Sodium Chloride 0.9% 180 ml @ 2 MCG/KG/MIN 12.516 mls/hr IV .[id number] [facility] Rx #:[id number] Diltiazem 125 mg In 125 118 Sodium Chloride 0.9% 100 ml @ 10 MG/HR 10 mls/hr IV .[id number] [facility] Rx#: [id number] propofoL 1,000 mg In 200.000 287.057 100 Empty Bag 1 bag @ Titrate IV .Q0M [facility] Rx#: [id number] Tube Feeding 289 81 Other 90 30 Output: Urine 50 110 10 Hemodialysis 1200 Other: Voiding Method Indwelling Catheter Indwelling Catheter ABP, PAP, CO, CI - Last Documented Arterial Blood Pressure 103/58 - Exam Patient is not personally examined because of covid infection. Information is gathered from nurses and other consultants notes - Labs CBC & Chem 7: 04/28/20 04:45 04/28/20 04:45 Labs: Abnormal Lab Results - Last 24 Hours (Table) 04/27/20 04/27/20 04/27/20 Range/Units 13:32 15:31 20:51 WBC (3.8-10.6) k/uL Neutrophils # (1.3-7.7) k/uL Lymphocytes # (1.0-4.8) k/uL Basophils # (0-0.2) k/uL Fibrinogen (200-500) mg/dL D-Dimer (<0.60) mg/L FEU ABG pH (7.35-7.45) ABG pCO2 (35-45) mmHg ABG pO2 (83-108) mmHg ABG HCO3 (21-25) mmol/L ABG Total CO2 (19-24) mmol/L ABG O2 Saturation (94-97) % Sodium (137-145) mmol/L BUN (7-17) mg/dL Creatinine (0.52-1.04) mg/dL Glucose (74-99) mg/dL POC Glucose (mg/dL) 161 H 140 H (75-99) mg/dL Calcium (8.4-10.2) mg/dL Ferritin (10.0-291.0) ng/mL ALT (4-34) U/L Lactate Dehydrogenase 1773 H (313-618) U/L C-Reactive Protein (<10.0) mg/L Total Protein (6.3-8.2) g/dL Albumin (3.5-5.0) g/dL Procalcitonin (0.02-0.09) ng/mL 04/28/20 04/28/20 04/28/20 Range/Units 00:36 04:36 04:45 WBC (3.8-10.6) k/uL Neutrophils # (1.3-7.7) k/uL Lymphocytes # (1.0-4.8) k/uL Basophils # (0-0.2) k/uL Fibrinogen (200-500) mg/dL D-Dimer (<0.60) mg/L FEU ABG pH 7.31 L (7.35-7.45) ABG pCO2 50 H (35-45) mmHg ABG pO2 61 L (83-108) mmHg ABG HCO3 (21-25) mmol/L ABG Total CO2 27 H (19-24) mmol/L ABG O2 Saturation 91.2 L (94-97) % Sodium (137-145) mmol/L BUN (7-17) mg/dL Creatinine (0.52-1.04) mg/dL Glucose (74-99) mg/dL POC Glucose (mg/dL) 152 H (75-99) mg/dL Calcium (8.4-10.2) mg/dL Ferritin (10.0-291.0) ng/mL ALT (4-34) U/L Lactate Dehydrogenase (313-618) U/L C-Reactive Protein (<10.0) mg/L Total Protein (6.3-8.2) g/dL Albumin (3.5-5.0) g/dL Procalcitonin 0.39 H (0.02-0.09) ng/mL 04/28/20 04/28/20 04/28/20 Range/Units 04:45 04:45 04:45 WBC 33.5 H (3.8-10.6) k/uL Neutrophils # 31.8 H (1.3-7.7) k/uL Lymphocytes # 0.2 L (1.0-4.8) k/uL Basophils # 0.3 H (0-0.2) k/uL Fibrinogen 556 H (200-500) mg/dL D-Dimer 3.82 H (<0.60) mg/L FEU ABG pH (7.35-7.45) ABG pCO2 (35-45) mmHg ABG pO2 (83-108) mmHg ABG HCO3 (21-25) mmol/L ABG Total CO2 (19-24) mmol/L ABG O2 Saturation (94-97) % Sodium 134 L (137-145) mmol/L BUN 73 H (7-17) mg/dL Creatinine 3.82 H (0.52-1.04) mg/dL Glucose 163 H (74-99) mg/dL POC Glucose (mg/dL) (75-99) mg/dL Calcium 7.7 L (8.4-10.2) mg/dL Ferritin 2186.1 H (10.0-291.0) ng/mL ALT 45 H (4-34) U/L Lactate Dehydrogenase 1581 H (313-618) U/L C-Reactive Protein 21.9 H (<10.0) mg/L Total Protein 5.2 L (6.3-8.2) g/dL Albumin 2.3 L (3.5-5.0) g/dL Procalcitonin (0.02-0.09) ng/mL 04/28/20 04/28/20 04/28/20 Range/Units 04:50 08:25 10:43 WBC (3.8-10.6) k/uL Neutrophils # (1.3-7.7) k/uL Lymphocytes # (1.0-4.8) k/uL Basophils # (0-0.2) k/uL Fibrinogen (200-500) mg/dL D-Dimer (<0.60) mg/L FEU ABG pH 7.30 L (7.35-7.45) ABG pCO2 54 H (35-45) mmHg ABG pO2 54 L* (83-108) mmHg ABG HCO3 27 H (21-25) mmol/L ABG Total CO2 28 H (19-24) mmol/L ABG O2 Saturation 87.2 L (94-97) % Sodium (137-145) mmol/L BUN (7-17) mg/dL Creatinine (0.52-1.04) mg/dL Glucose (74-99) mg/dL POC Glucose (mg/dL) 150 H 162 H (75-99) mg/dL Calcium (8.4-10.2) mg/dL Ferritin (10.0-291.0) ng/mL ALT (4-34) U/L Lactate Dehydrogenase (313-618) U/L C-Reactive Protein (<10.0) mg/L Total Protein (6.3-8.2) g/dL Albumin (3.5-5.0) g/dL Procalcitonin (0.02-0.09) ng/mL 04/28/20 04/28/20 Range/Units 11:20 11:44 WBC (3.8-10.6) k/uL Neutrophils # (1.3-7.7) k/uL Lymphocytes # (1.0-4.8) k/uL Basophils # (0-0.2) k/uL Fibrinogen (200-500) mg/dL D-Dimer (<0.60) mg/L FEU ABG pH (7.35-7.45) ABG pCO2 (35-45) mmHg ABG pO2 (83-108) mmHg ABG HCO3 (21-25) mmol/L ABG Total CO2 (19-24) mmol/L ABG O2 Saturation (94-97) % Sodium (137-145) mmol/L BUN (7-17) mg/dL Creatinine (0.52-1.04) mg/dL Glucose (74-99) mg/dL POC Glucose (mg/dL) 102 H 113 H (75-99) mg/dL Calcium (8.4-10.2) mg/dL Ferritin (10.0-291.0) ng/mL ALT (4-34) U/L Lactate Dehydrogenase (313-618) U/L C-Reactive Protein (<10.0) mg/L Total Protein (6.3-8.2) g/dL Albumin (3.5-5.0) g/dL Procalcitonin (0.02-0.09) ng/mL Microbiology - Last 24 Hours (Table) 04/21/20 23:37 Blood Culture - Final Blood No Growth after 144 hours 04/25/20 Unknown Gram Stain - Final Sputum Sputum Culture - Final Assessment and Plan (1) Atrial fibrillation with RVR Current Visit: Yes Status: Acute Code(s): I48.91 - UNSPECIFIED ATRIAL FIBRI LLATION SNOMED Code(s): 328082038124398 (2) Pneumonia due to COVID-19 virus Current Visit: Yes Status: Acute Code(s): U07.1 - COVID-19; J12.82 - Pneumonia due to coronavirus disease 2019 SNOMED Code(s): 629755366976686368 (3) Acute renal failure Current Visit: Yes Status: Acute Code(s): N17.9 - ACUTE KIDNEY FAILURE, UNSPECIFIED SNOMED Code(s): 90164317 Plan: Continue with amiodarone drip at 1 mg. Continue rest of the management. Prognosis is guarded
[2020-04-28] MEDS: methylPREDNISolone SOD SUCCI 40 MG/ML 1 ML VIAL IV SCH (14:20)
[2020-04-28] MEDS: FAMOTIDINE 20 MG TAB PO SCH (14:20)
--- NOTE | 2020-04-28 16:06 | PN ---
PROGRESS NOTE DATE OF SERVICE: 04/28/2020 REASON FOR FOLLOWUP: COVID-19 pneumonia. INTERVAL HISTORY: The patient is currently afebrile. The patient remains intubated on the vent. She is hemodynamically stable. She did receive dialysis for worsening renal failure. No significant purulent secretions through the ET or any diarrhea reported by nursing staff. PHYSICAL EXAMINATION: Blood pressure 114/55 with a pulse of 108, temperature 97.8. She is 90% on 70% FiO2. General description is an elderly female intubated on the vent. RESPIRATORY SYSTEM: Unlabored breathing with decreased intensity of breath sounds. No wheeze. HEART: S1, S2. Regular rate and rhythm. ABDOMEN: Soft. No tenderness. LABS: Hemoglobin is 13.4, white count 33.5. BUN of 73, creatinine 3.82. DIAGNOSTIC IMPRESSION AND PLAN: Patient with acute respiratory failure which is multifactorial in this patient who did have COVID-19. The patient has completed her remdesivir therapy, currently on steroids, Lovenox and a short empiric antibiotic, antifungal; to continue. Overall prognosis remains guarded. Continue with supportive care. MMODL / IJN: [id number] /
[2020-04-28 21:55] LABS: Glucose,Whole Blood 173 mg/dL (75-99)
--- NOTE | 2020-04-28 23:15 | P.PN ---
Subjective Ms. Mccoy is a 69-year-old female with a past medical history of hypertension and thyroid disorder admitted to the hospital for acute hypoxic respiratory failure secondary to COVID 19 pneumonia. Patient has extensive bilateral interstitial pneumonia. She is on a low and pulmonary Dr. Mathews is following the patient. Patient received a convalescent plasma, is also on Remdesivir. On 04/17/2020- This morning patient was evaluated in the ICU. Patient is comfortably sitting in a chair states that her breathing is improving gradually. She denies having any chest pain or palpitations. No cough or hemoptysis. She denies having any swelling or for lower extremities. No abdominal pain nausea vomiting or diarrhea. She denies having any dysuria or hematuria, she has a Bryan's catheter in place. On reviewing her vitals temperature 98.1 heart rate 75 is 5817, blood pressure 1:30 bradycardia. Saturating at 96% on a Aervo -60%. On 04/18/2020 - patient was seen and examined in the ICU. Patient is sitting in a chair by the bedside, states that her breathing has worsened compared to yesterday. Patient is on high flow Airvo, saturating in the low 90s. She denies having any chest pain or palpitations. She complains of cough that is nonproductive. Patient had a chest x-ray done showing stable bilateral air space disease. As the patient was having few episodes of tachycardia, she was started on Lopressor this morning. Patient's inflammatory markers are noted to be high. On reviewing her vitals saturating at 90% on high flow Airvo, heart rate 70s to 80s, respiratory rate 20-25, blood pressure 106-67. In reviewing her labs white count of 29.3, hemoglobin 16.8, platelets 369. D-dimer 6.99, LDH 2969, CRP 63.9. On 04/19/2020 - patient is seen and examined in the ICU. She is currently on BiPAP, as her respiratory status has worsened compared to yesterday. Patient denies having any chest pain or palpitations. No abdominal pain nausea vomiting or diarrhea. No dysuria or hematuria. She is on BiPAP 14/6 and 100% FiO2. On reviewing her vitals temperature is 99.2, respiratory rate is 25, heart rate 70, blood pressure 10 9 x 71. Reviewing the labs white count of 27.3, hemoglobin 17.4, platelets 314. Sodium 133, potassium 4.4, chloride 90, bicarbonate 35, BUN 31, creatinine 0.72. Ferritin 3195, CRP 217 and LDH 2747. 04/20/2020 This is a pleasant 69 years old female with multiple medical problems was adm itted for bilateral Covid pneumonia, she is currently on aervo at 90%/60 L of oxygen, saturating 89%. Rest of Vitas looks stable Also she is on BiPAP All the night. She is able to eat and drink, no pressors She is on normal saline at 75 mL/h with adequate urine output Patient is currently ON Medrol 40 mg twice daily, Lovenox 60 mg twice Mary and vitamin C and zinc. She finished her remdisvir and convelecent plasma. 04/21/2020 Patient remains in the ICU bed and respiratory support for her bilateral Covid pneumonia. She still dyspneic especially with exertion and she still needs BiPAP during the day shift. Also she had a fever today of 102.2. Patient is empirically on Zosyn/calcitonin check today showing normal level at 0.07. She has leukocytosis of 29K. I agree with Zosyn and I recommended to continue with that for now. Also patient is on steroids 60 mg every 6 hours. As there is no more significant progress progress in her clinical picture Glucose is 123 and inflammatory markers still elevated 04/22/2020 this is a pleasant 69 yo F who is admitted to the ICU for covid pneumonia, she is still on BiPAP dependant , TNP is started for her nutrition for this reasone. her oxygen saturation is on low 90s% cxr: diffuse interstitial opacities and worsening airspace disease in the left lower lung. consider interstitial edema wbc is sligtly less 26K, she is currently continued on zosyn , and solumedrol 60 mg. and normal saline increased to 150 ml/hr. and lovenox 60 mg BID she finised her Remdisvir and convelescent Plasma. 04/23/2020 Patient looks very tired, she came Off the BiPAP today morning and she was placed back on airvo at 60 L she is back and forth between BiPAP and airvo, however she probably will need BiPAP at night Inflammatory markers and d-dimer increased, ferritin 3100 up to 3700 and d-dimer 3 up to 5 Chest x-ray showing bilateral middle and lower infiltrates with slight improvement Treatments with antibiotics Zosyn, fluconazole was added today. Also she is also on Solu-Medrol 60 mg, normal sling was decreased to 50 mL per hour, Lovenox 60 mg twice daily, TPN and she is on vitamin C and zinc 04/24/2020 Patient today her clinical condition deteriorated, she was hypoxic this morning with oxygen saturation in the 70s percent and she was tachycardic with heart rate 140-150, patient ended up being intubated in the morning and she was in an you onset of A. fib and started on Cardizem drip on 15 mg however her heart rate was still elevated, cardiology team were consulted, blood pressure was on the low normal side. Amiodarone drip was started. Cardiology team and Cardizem drip was shut to 15 mg/h. Also insulin drip for hyperglycemia with sugar more than 300. 04/25/2020 Patient was intubated yesterday for deteriorated respiratory status, ABG showing elevated pCO2 on 496 with acidosis. 7.0 and 7.1. Oxygen saturation is acceptable at 107. She remains on mechanical ventilation managed by pulmonary/critical care team, currently her bruits and draped with before meals at 40 to help with her acidosis. Her creatinine worsened today 0.5 up to 1.3, with potassium elevated as well as 5.5 nephrology team were consulted who ordered insulin/dextrose 50%, sodium bicarb 1 and Lasix 80 mg 1. Rug Underlay Machine Operator recommended hemodialysis and no improvement in 24 hours Chest x-ray showing pneumonia and edema which is stable from yesterday. Sugar improved and we could switch her insulin drip to insulin sliding scale A. fib is improved and converted to sinus rhythm with amiodarone which is switched to Pills Now per Mill Beam Fitter, She Is Already on Anticoagulation 04/26/20 Patient remains in the ICU sedated and intubated with pulmonary/ critical care team following the case closely. Showing trending down leukocytosis to 20 6.1K. Creatinine up to 2.8, Patient is developing anuria with acute kidney injury, nephrology evaluation is appreciated and hemodialysis is initiated. Chest x-ray showing interstitial infiltrate especially in the mid to lower lungs Echocardiogram showed ejection fraction of 55-60%, and atrial fibrillation i mproved yesterday with amiodarone She remains on Solu-Medrol, Zosyn and fluconazole, normal sinus 50 and vitamin C and zinc Lovenox dose was adjusted to renal function down to 50 mg daily Prognosis remains guarded 04/27/2020 Patient with bilateral: With pneumonia that her purse and eventually got i ntubated, pulmonary/critical care team and several consultants are following the case, vent management as per pulmonary team. She has leukocytosis of 13.8 K. Creatinine today is 3.37 Patient undergoing hemodialysis for the last 2-3 days for acute kidney injury and formerly [facility] Patient A. fib heart rate becomes uncontrolled today and her amiodarone to switch to a drip. Other medication including Solu-Medrol 60 mg, vitamin C and zinc, Zosyn and fluconazole, she is on normal saline at 50 mL/h and Lovenox dose dropped to 30 mg daily 04/28/2020 Patient remains intubated and sedated in the ICU, followed closely by critical care team. Vital showing tachycardia and tachypnea. WBC is 30 3.5K. Cre atinine 3.8, sodium 134. Sugar is controlled. Inflammatory markers are elevated. She is undergoing hemodialysis today Chest x-ray from today showing no change from last one yesterday Medication-hernandez he remains on Solu-Medrol, Zosyn, 30 mg of Lovenox daily which is renal dose and amiodarone drip. Normal saline at 50 mm was discontinued today Review of systems N/a Active Medications Acetaminophen (Acetaminophen Tab 325 Mg Tab) 650 mg PO Q6HR PRN Albuterol Sulfate (Albuterol Hfa Inhaler) 2 puff INHALATION RT-QID [facility] Alprazolam (Alprazolam 0.25 Mg Tab) 0.25 mg PO TID PRN Ascorbic Acid (Ascorbic Acid 500 Mg Tab) 250 mg PO DAILY [facility] Chlorhexidine Gluconate (Chlorhexidine Gluconate 15 Ml Cup) 15 ml MUCOUS MEM BID [facility] Cholecalciferol (Cholecalciferol 1,000 Unit Tab) 1,000 unit PO DAILY [facility] Enoxaparin Sodium (Enoxaparin 60 Mg/0.6 Ml Syringe) 50 mg SQ DAILY [facility] Famotidine (Famotidine 20 Mg Tab) 20 mg OG-TUBE Q24HR [facility] Folic Acid (Folic Acid 1 Mg Tab) 1 mg PO DAILY@1200 [facility] Hydromorphone HCl (Hydromorphone 1 Mg/Ml 1 Ml Syringe) 1 mg IVP Q2HR PRN Fluconazole/Sodium Chloride (100 mg/ IV Solution) 50 mls @ 50 mls/hr IVPB DAILY [facility] Sodium Chloride (Saline 0.9%) 1,000 mls @ 50 mls/hr IV .Q20H [facility] Propofol 1,000 mg/ IV Solution 100 mls @ 0 mls/hr IV .Q0M [facility]; Protocol Cisatracurium Besylate 200 mg/ (Sodium Chloride) 200 mls @ 12.516 mls/hr IV .[id number] [facility]; Protocol Piperacillin Sod/Tazobactam (Sod 3.375 gm/ Sodium Chloride) 100 mls @ 25 mls/hr IVPB Q12H [facility] Diltiazem HCl 125 mg/ Sodium (Chloride) 125 mls @ 10 mls/hr IV .[id number] [facility] Amiodarone HCl 360 mg/ (Dextrose/Water) 200 mls @ 33.333 mls/hr IV .Q6H ONE; Protocol Insulin Aspart (Insulin Aspart (Novolog) 100 Unit/Ml Vial) 0 unit SQ Q4H [facility]; Protocol Levothyroxine Sodium (Levothyroxine 50 Mcg Tab) 50 mcg PO DAILY@0630 [facility] Melatonin (Melatonin 5 Mg Tablet) 5 mg PO HS PRN Methylprednisolone Sodium Succinate (Methylprednisolone Sod Succi 125 Mg/2 Ml Vial) 60 mg IV Q6HR [facility] Miscellaneous Information (Potassium Replacement Protocol 1 Each Misc) 1 each MISCELLANE DAILY PRN; Protocol Morphine Sulfate (Morphine Sulfate 2 Mg/Ml Syringe) 2 mg IVP Q6H PRN Multivitamins (Multivitamins, Thera 1 Each Tab) 1 each PO DAILY@1200 [facility] Naloxone HCl (Naloxone 0.4 Mg/Ml 1 Ml Vial) 0.2 mg IV Q2M PRN Ondansetron HCl (Ondansetron 4 Mg/2 Ml Vial) 4 mg IVP Q6HR PRN Thiamine HCl (Thiamine 100 Mg Tab) 100 mg PO DAILY@1200 [facility] Zinc Sulfate (Zinc Sulfate 220 Mg Cap) 220 mg PO DAILY [facility] Objective - Vital Signs Vital signs: Vital Signs Temp 97.8 F 04/28/20 13:06 Pulse 76 04/28/20 18:00 Resp 23 04/28/20 18:00 BP 114/55 04/28/20 13:06 Pulse Ox 91 L 04/28/20 18:00 Intake & Output 04/28/20 04/28/20 04/29/20 06:59 18:59 06:59 Intake Total 5273.119 9073.578 Output Total 110 1015 Balance 1384.057 225.578 Weight 115.4 kg Intake: IV 689 416 Diana flush 39 36 Fluconazole in NaCl,Iso- 50 Osm 100 mg In Saline 1 50ml.bag @ 50 mls/hr IVPB DAILY [facility] Rx#:[id number] Sodium Chloride 0.9% 1, 650 330 000 ml @ 50 mls/hr IV . Q20H [facility] Rx#:[id number] Intake, IV Titration 805.057 410.578 Amount Amiodarone 360 mg In 400 200 Dextrose 5% in Water 200 ml @ 1 MG/MIN 33.333 mls/ hr IV .Q6H [facility] Rx#: [id number] Diltiazem 125 mg In 118 Sodium Chloride 0.9% 100 ml @ 10 MG/HR 10 mls/hr IV .[id number] [facility] Rx#: [id number] Piperacillin-Tazobactam 3 100 .375 gm In Sodium Chloride 0.9% 100 ml @ 25 mls/hr IVPB Q12H [facility] Rx# :[id number] fentaNYL (PF) 1,000 mcg 10.578 In Sodium Chloride 0.9% 80 ml @ Per Protocol IV . Q0M [facility] Rx#:[id number] propofoL 1,000 mg In 287.057 100 Empty Bag 1 bag @ Titrate IV .Q0M [facility] Rx#: [id number] Tube Feeding 324 Other 90 Output: Urine 110 15 Hemodialysis 1000 Other: Voiding Method Indwelling Catheter Indwelling Catheter ABP, PAP, CO, CI - Last Documented Arterial Blood Pressure 119/52 - Exam -GENERAL: The patient is intubated and sedated HEENT: Pupils are round and equally reacting to light. EOMI. No scleral icterus. No conjunctival pallor. Normocephalic, atraumatic. No pharyngeal erythema. No thyromegaly. CARDIOVASCULAR: S1 and S2 present. No murmurs, rubs, or gallops. -PULMONARY: Chest is clear to auscultation, bilateral crepitation ABDOMEN: Soft, nontender, nondistended, normoactive bowel sounds. No palpable organomegaly. MUSCULOSKELETAL: No joint swelling or deformity. EXTREMITIES: No cyanosis, clubbing, or pedal edema. NEUROLOGICAL: Gross neurological examination did not reveal any focal deficits. SKIN: No rashes. no petechiae. - Labs CBC & Chem 7: 04/28/20 04:45 04/28/20 04:45 Labs: Abnormal Lab Results - Last 24 Hours (Table) 04/27/20 04/28/20 04/28/20 Range/Units 20:51 00:36 04:36 WBC (3.8-10.6) k/uL Neutrophils # (1.3-7.7) k/uL Lymphocytes # (1.0-4.8) k/uL Basophils # (0-0.2) k/uL Fibrinogen (200-500) mg/dL D-Dimer (<0.60) mg/L FEU ABG pH 7.31 L (7.35-7.45) ABG pCO2 50 H (35-45) mmHg ABG pO2 61 L (83-108) mmHg ABG HCO3 (21-25) mmol/L ABG Total CO2 27 H (19-24) mmol/L ABG O2 Saturation 91.2 L (94-97) % Sodium (137-145) mmol/L BUN (7-17) mg/dL Creatinine (0.52-1.04) mg/dL Glucose (74-99) mg/dL POC Glucose (mg/dL) 140 H 152 H (75-99) mg/dL Calcium (8.4-10.2) mg/dL Ferritin (10.0-291.0) ng/mL ALT (4-34) U/L Lactate Dehydrogenase (313-618) U/L C-Reactive Protein (<10.0) mg/L Total Protein (6.3-8.2) g/dL Albumin (3.5-5.0) g/dL Procalcitonin (0.02-0.09) ng/mL 04/28/20 04/28/20 04/28/20 Range/Units 04:45 04:45 04:45 WBC 33.5 H (3.8-10.6) k/uL Neutrophils # 31.8 H (1.3-7.7) k/uL Lymphocytes # 0.2 L (1.0-4.8) k/uL Basophils # 0.3 H (0-0.2) k/uL Fibrinogen (200-500) mg/dL D-Dimer (<0.60) mg/L FEU ABG pH (7.35-7.45) ABG pCO2 (35-45) mmHg ABG pO2 (83-108) mmHg ABG HCO3 (21-25) mmol/L ABG Total CO2 (19-24) mmol/L ABG O2 Saturation (94-97) % Sodium 134 L (137-145) mmol/L BUN 73 H (7-17) mg/dL Creatinine 3.82 H (0.52-1.04) mg/dL Glucose 163 H (74-99) mg/dL POC Glucose (mg/dL) (75-99) mg/dL Calcium 7.7 L (8.4-10.2) mg/dL Ferritin 2186.1 H (10.0-291.0) ng/mL ALT 45 H (4-34) U/L Lactate Dehydrogenase 1581 H (313-618) U/L C-Reactive Protein 21.9 H (<10.0) mg/L Total Protein 5.2 L (6.3-8.2) g/dL Albumin 2.3 L (3.5-5.0) g/dL Procalcitonin 0.39 H (0.02-0.09) ng/mL 04/28/20 04/28/20 04/28/20 Range/Units 04:45 04:50 08:25 WBC (3.8-10.6) k/uL Neutrophils # (1.3-7.7) k/uL Lymphocytes # (1.0-4.8) k/uL Basophils # (0-0.2) k/uL Fibrinogen 556 H (200-500) mg/dL D-Dimer 3.82 H (<0.60) mg/L FEU ABG pH (7.35-7.45) ABG pCO2 (35-45) mmHg ABG pO2 (83-108) mmHg ABG HCO3 (21-25) mmol/L ABG Total CO2 (19-24) mmol/L ABG O2 Saturation (94-97) % Sodium (137-145) mmol/L BUN (7-17) mg/dL Creatinine (0.52-1.04) mg/dL Glucose (74-99) mg/dL POC Glucose (mg/dL) 150 H 162 H (75-99) mg/dL Calcium (8.4-10.2) mg/dL Ferritin (10.0-291.0) ng/mL ALT (4-34) U/L Lactate Dehydrogenase (313-618) U/L C-Reactive Protein (<10.0) mg/L Total Protein (6.3-8.2) g/dL Albumin (3.5-5.0) g/dL Procalcitonin (0.02-0.09) ng/mL 04/28/20 04/28/20 04/28/20 Range/Units 10:43 11:20 11:44 WBC (3.8-10.6) k/uL Neutrophils # (1.3-7.7) k/uL Lymphocytes # (1.0-4.8) k/uL Basophils # (0-0.2) k/uL Fibrinogen (200-500) mg/dL D-Dimer (<0.60) mg/L FEU ABG pH 7.30 L (7.35-7.45) ABG pCO2 54 H (35-45) mmHg ABG pO2 54 L* (83-108) mmHg ABG HCO3 27 H (21-25) mmol/L ABG Total CO2 28 H (19-24) mmol/L ABG O2 Saturation 87.2 L (94-97) % Sodium (137-145) mmol/L BUN (7-17) mg/dL Creatinine (0.52-1.04) mg/dL Glucose (74-99) mg/dL POC Glucose (mg/dL) 102 H 113 H (75-99) mg/dL Calcium (8.4-10.2) mg/dL Ferritin (10.0-291.0) ng/mL ALT (4-34) U/L Lactate Dehydrogenase (313-618) U/L C-Reactive Protein (<10.0) mg/L Total Protein (6.3-8.2) g/dL Albumin (3.5-5.0) g/dL Procalcitonin (0.02-0.09) ng/mL Microbiology - Last 24 Hours (Table) 04/21/20 23:37 Blood Culture - Final Blood No Growth after 144 hours Assessment and Plan Assessment: COVID 19 pneumonia Acute hypoxic respiratory failure-status post intubation and mechanical ventilation New onset A. fib with RVR Acute kidney injury with hyperkalemia Combined Metabolic acidosis and respiratory acidosis Increased d-dimer without evidence of PE Hyponatremia Leukocytosis Elevated and she telemetry markers Hypertension Hypothyroidism History of bilateral posterior tibial tendon repair Obesity with BMI of 35 Plan: This is a pleasant 69 years old female with Covid pneumonia and hypoxic respiratory failure. Continue with oxygen supplementation as needed, intubated on mechanical ventilation with pulmonary/critical care team and follow the case closely. With her inflammatory markers. Continue with Solu-Medrol and Lovenox and zinc and vitamin C. continue with Lovenox, continue tube feeding, continue with antibiotics and steroids. Also she is on amiodarone start hemodialysis per nephrology team recommended Monitor WBC and kidney function Labs and medication were reviewed.. Continue same treatment. Continue with symptomatic treatment. Resume home medication. Monitor lytes and vitals. DVT and GI prophylaxis. Further recommendations as per clinical course of the patient DVT prophylaxis: Subcutaneous Lovenox GI Prophylaxis: Pepcid Prognosis is guarded
[2020-04-29] MEDS: methylPREDNISolone SOD SUCCI 125 MG/2 ML VIAL IV SCH ×5 (00:07→23:28)
[2020-04-29] MEDS: PIPERACILLIN-TAZOBACTAM 3.375 GM in SODIUM CHLORIDE 0.9% 100 ML IVPB SCH ×3 (00:08→23:27)
[2020-04-29] MEDS: fentaNYL (PF) 1,000 MCG in SODIUM CHLORIDE 0.9% 80 ML IV SCH ×2 (00:22→17:09)
[2020-04-29 00:37] LABS: Glucose,Whole Blood 184 mg/dL (75-99)
[2020-04-29] MEDS: INSULIN ASPART (NovoLOG) 100 UNIT/ML VIAL SQ SCH ×7 (00:37→23:29)
[2020-04-29] MEDS: AMIODARONE 360 MG in DEXTROSE 5% IN WATER 200 ML IV SCH ×4 (02:44→08:56)
[2020-04-29] MEDS: DILTIAZEM 125 MG in SODIUM CHLORIDE 0.9% 100 ML IV SCH ×3 (04:10→19:58)
[2020-04-29 04:20] LABS: Glucose,Whole Blood 147 mg/dL (75-99)
[2020-04-29 04:30] LABS: ABG Base Excess -3.1 mmol/L; ABG HCO3 24 mmol/L (21-25); ABG Oxygen Saturation 93.8 % (94-97); ABG PCO2 56 mmHg (35-45); ABG PH 7.24 (7.35-7.45); ABG PO2 75 mmHg (83-108); ABG TCO2 26 mmol/L (19-24)
[2020-04-29 04:37] LABS: Basophils % (A) 0 %; Eosinophils % (A) 0 %; HGB 12.7 gm/dL (11.4-16.0); Lymphocytes # (A) 0.4 k/uL (1.0-4.8); Lymphocytes % (A) 1 %; MCH 30.1 pg (25.0-35.0); MCHC 31.1 g/dL (31.0-37.0); MCV 96.7 fL (80.0-100.0); Mean Platelet Volume 8.2; Monocytes # (A) 0.6 k/uL (0-1.0); Monocytes % (A) 2 %; Neutrophils # (A) 27.7 k/uL (1.3-7.7); Neutrophils % (A) 96 %; Platelet Count 209 k/uL (150-450); RBC 4.24 m/uL (3.80-5.40); RDW 13.7 % (11.5-15.5)
[2020-04-29 05:14] LABS: Allen Test Performed? no
[2020-04-29 05:36] LABS: Albumin 2.3 g/dL (3.5-5.0); C Reactive Protein 17.8 mg/L (<10.0); Calcium 7.6 mg/dL (8.4-10.2); Potassium 4.9 mmol/L (3.5-5.1); Total Bilirubin 0.5 mg/dL (0.2-1.3)
[2020-04-29] MEDS: LEVOTHYROXINE 50 MCG TAB PO SCH (06:05)
[2020-04-29] MEDS: ALBUTEROL HFA INHALER INHALATION SCH ×4 (07:30→19:22)
--- NOTE | 2020-04-29 08:00 | XR ---
EXAMINATION TYPE: XR chest 1V portable DATE OF EXAM: 04/29/2020 COMPARISON: 04/28/2020 INDICATION: Tube placement TECHNIQUE: Single frontal view of the chest is obtained. FINDINGS: The heart size is normal. The pulmonary vasculature is normal. Mild increasing diffuse infiltrate is present at the lung bases Endotracheal tube tip is above the antwon. Nasogastric tube transverses the thorax. IMPRESSION: 1. Mild increase in bibasilar infiltrates. Diffuse infiltrate is present bilaterally.
[2020-04-29] MEDS ORDERED: FUROSEMIDE 10 MG/ML 10 ML VIAL IV STA (08:39)
--- NOTE | 2020-04-29 08:40 | P.PN ---
Subjective Patient is seen in follow-up for acute kidney injury. Started on hemodialysis April 26 for oliguria and volume overload. Receiving tube feeding. Intubated. On 70% FiO2. On Cardizem as well as amiodarone drip for A. fib. Remains oliguric. Tolerated 1 L ultrafiltration yesterday. Intubated. Irregular rate and rhythm. No gross distention noted. Trace edema. Objective - Vital Signs Vital signs: Vital Signs Temp 98.4 F 04/29/20 04:00 Pulse 73 04/29/20 06:00 Resp 23 04/29/20 06:00 BP 114/55 04/28/20 13:06 Pulse Ox 94 L 04/29/20 06:00 Intake & Output 04/28/20 04/29/20 04/29/20 18:59 06:59 18:59 Intake Total 5542.755 7514.357 Output Total 1015 163 Balance 308.208 4218.357 Weight 113.6 kg Intake: IV 416 253 Thorp flush 36 33 Fluconazole in NaCl,Iso- 50 Osm 100 mg In Saline 1 50ml.bag @ 50 mls/hr IVPB DAILY [facility] Rx#:[id number] Sodium Chloride 0.9% 1, 330 220 000 ml @ 50 mls/hr IV . Q20H [facility] Rx#:[id number] Intake, IV Titration 635.578 869.357 Amount Amiodarone 360 mg In 200 391.665 Dextrose 5% in Water 200 ml @ 1 MG/MIN 33.333 mls/ hr IV .Q6H [facility] Rx#: [id number] Diltiazem 125 mg In 125 108 Sodium Chloride 0.9% 100 ml @ 10 MG/HR 10 mls/hr IV .[id number] [facility] Rx#: [id number] Piperacillin-Tazobactam 3 100 .375 gm In Sodium Chloride 0.9% 100 ml @ 25 mls/hr IVPB Q12H [facility] Rx# :[id number] fentaNYL (PF) 1,000 mcg 10.578 80.972 In Sodium Chloride 0.9% 80 ml @ Per Protocol IV . Q0M [facility] Rx#:[id number] propofoL 1,000 mg In 200 288.72 Empty Bag 1 bag @ Titrate IV .Q0M [facility] Rx#: [id number] Tube Feeding 324 297 Other 90 90 Output: Urine 15 163 Hemodialysis 1000 Other: Voiding Method Indwelling Catheter Indwelling Catheter ABP, PAP, CO, CI - Last Documented Arterial Blood Pressure 128/55 - Labs CBC & Chem 7: 04/29/20 04:15 04/29/20 04:15 Labs: Abnormal Lab Results - Last 24 Hours (Table) 04/28/20 04/28/20 04/28/20 Range/Units 04:45 04:45 10:43 WBC (3.8-10.6) k/uL Neutrophils # (1.3-7.7) k/uL Lymphocytes # (1.0-4.8) k/uL ABG pH 7.30 L (7.35-7.45) ABG pCO2 54 H (35-45) mmHg ABG pO2 54 L* (83-108) mmHg ABG HCO3 27 H (21-25) mmol/L ABG Total CO2 28 H (19-24) mmol/L ABG O2 Saturation 87.2 L (94-97) % Sodium (137-145) mmol/L BUN (7-17) mg/dL Creatinine (0.52-1.04) mg/dL Glucose (74-99) mg/dL POC Glucose (mg/dL) (75-99) mg/dL Calcium (8.4-10.2) mg/dL Ferritin 2186.1 H (10.0-291.0) ng/mL ALT (4-34) U/L Lactate Dehydrogenase (313-618) U/L Creatine Kinase (30-135) U/L C-Reactive Protein (<10.0) mg/L Total Protein (6.3-8.2) g/dL Albumin (3.5-5.0) g/dL Procalcitonin 0.39 H (0.02-0.09) ng/mL 04/28/20 04/28/20 04/28/20 Range/Units 11:20 11:44 21:52 WBC (3.8-10.6) k/uL Neutrophils # (1.3-7.7) k/uL Lymphocytes # (1.0-4.8) k/uL ABG pH (7.35-7.45) ABG pCO2 (35-45) mmHg ABG pO2 (83-108) mmHg ABG HCO3 (21-25) mmol/L ABG Total CO2 (19-24) mmol/L ABG O2 Saturation (94-97) % Sodium (137-145) mmol/L BUN (7-17) mg/dL Creatinine (0.52-1.04) mg/dL Glucose (74-99) mg/dL POC Glucose (mg/dL) 102 H 113 H 173 H (75-99) mg/dL Calcium (8.4-10.2) mg/dL Ferritin (10.0-291.0) ng/mL ALT (4-34) U/L Lactate Dehydrogenase (313-618) U/L Creatine Kinase (30-135) U/L C-Reactive Protein (<10.0) mg/L Total Protein (6.3-8.2) g/dL Albumin (3.5-5.0) g/dL Procalcitonin (0.02-0.09) ng/mL 04/29/20 04/29/20 04/29/20 Range/Units 00:35 04:15 04:15 WBC 29.0 H (3.8-10.6) k/uL Neutrophils # 27.7 H (1.3-7.7) k/uL Lymphocytes # 0.4 L (1.0-4.8) k/uL ABG pH (7.35-7.45) ABG pCO2 (35-45) mmHg ABG pO2 (83-108) mmHg ABG HCO3 (21-25) mmol/L ABG Total CO2 (19-24) mmol/L ABG O2 Saturation (94-97) % Sodium 132 L (137-145) mmol/L BUN 76 H (7-17) mg/dL Creatinine 4.03 H (0.52-1.04) mg/dL Glucose 153 H (74-99) mg/dL POC Glucose (mg/dL) 184 H (75-99) mg/dL Calcium 7.6 L (8.4-10.2) mg/dL Ferritin (10.0-291.0) ng/mL ALT 35 H (4-34) U/L Lactate Dehydrogenase 1281 H (313-618) U/L Creatine Kinase 26 L (30-135) U/L C-Reactive Protein 17.8 H (<10.0) mg/L Total Protein 5.0 L (6.3-8.2) g/dL Albumin 2.3 L (3.5-5.0) g/dL Procalcitonin (0.02-0.09) ng/mL 04/29/20 04/29/20 Range/Units 04:18 04:29 WBC (3.8-10.6) k/uL Neutrophils # (1.3-7.7) k/uL Lymphocytes # (1.0-4.8) k/uL ABG pH 7.24 L (7.35-7.45) ABG pCO2 56 H (35-45) mmHg ABG pO2 75 L (83-108) mmHg ABG HCO3 (21-25) mmol/L ABG Total CO2 26 H (19-24) mmol/L ABG O2 Saturation 93.8 L (94-97) % Sodium (137-145) mmol/L BUN (7-17) mg/dL Creatinine (0.52-1.04) mg/dL Glucose (74-99) mg/dL POC Glucose (mg/dL) 147 H (75-99) mg/dL Calcium (8.4-10.2) mg/dL Ferritin (10.0-291.0) ng/mL ALT (4-34) U/L Lactate Dehydrogenase (313-618) U/L Creatine Kinase (30-135) U/L C-Reactive Protein (<10.0) mg/L Total Protein (6.3-8.2) g/dL Albumin (3.5-5.0) g/dL Procalcitonin (0.02-0.09) ng/mL Assessment and Plan Plan: Assessment: 1. Acute kidney injury secondary to ATN secondary to hypotension, hemodynamic instability and infection. Baseline creatinine near 1 and is 4.03 today. Oliguric. Started on hemodialysis April 26. 2. Acute hypercapnic/hypoxic respiratory failure. Currently on 70% FiO2. 3. Hyperkalemia secondary to acute kidney injury, hyzaar and potassium supplementation. Better. 4. COVID-19 infection. 5. A. fib with RVR maintained on Cardizem and amiodarone drip. Plan: Maintain tube feeds. Stopped Hyzaar April 25. Repeat Lasix 80 mg IV once today. Avoid nephrotoxins. Wean FiO2. Hold hemodialysis today. Plan for treatment tomorrow. Continue to monitor renal function and urine output.
[2020-04-29] MEDS: CISATRACURIUM 200 MG in SODIUM CHLORIDE 0.9% 180 ML IV SCH (08:56)
--- NOTE | 2020-04-29 09:00 | P.PN ---
Subjective Progress Note Date: 04/29/20 This 69-year-old white female patient who was admitted to the hospital on 04/11/2020 when she came in for evaluation of 1 week history of cough, fever, shortness of breath, decreased appetite and intermittent episodes of diarrhea. Patient was diagnosed with COVID 19 pneumonia, this was done via outpatient testing through the health Department. Patient initially presented at [facility], she was hypoxemic with a pulse ox in the 80s and she was placed on high flow oxygen and transferred to the [facility]. CT angiogram of the chest showed no evidence of pulmonary embolism, however it showed evidence of bilateral interstitial infiltrates consistent with COVID 19 pneumonitis. Patient completed her Remdesivir treatment on 04/16/2020, she received 2 units of convalescent plasma, she remains on IV steroids with IV Solu-Medrol. In view of her worsening hypoxemia patient was transferred to the intensive care unit, she is intubated on 04/24/2020 The patient is seen today 04/26/2020 and follow-up in the intensive care unit. She remains intubated on the mechanical ventilator. She was intubated on 04/24/2020 . Current settings are assist-control of 40, tidal volume 400, FiO2 60% and a PEEP of 15. Blood gases that a pH of 7.36 with a pCO2 of 50 and pO2 of 67. Chest x-ray from today is showing bilateral pulmonary infiltrates, interstitial and diffuse. ET tube is in a good location. I do not see any major interval change in her chest x-ray findings or the past 48 hours. She remains on 0.9 normal saline at 50 MLS per hour. Propofol at 50 mcg/kg/m. Nimb ex at 1.0 L micrograms per kilogram per minute. She is on amiodarone at 0.5 mg/m for AFIB/SVT. Her rate is better controlled today. She has a normal sinus rhythm for now and she is on po amiodarone. Chest x-ray with similar findings of bilateral groundglass opacity, air space disease which is stable compared to previous. She has received 2 units of convalescent plasma. She completed Remdesivir. Blood cultures reveal no growth. Urine culture revealed no growth. She was given IV Zosyn empirically. Remains on Solu-Medrol 60 mg every 6.Of significance is also development of an acute kidney injury. The patient's urine output is less than 5 mL an hour. Creatinine came up from a baseline of 0 point up to 1.34 and later on to 2.8. Nephrology is on the case. Ultrasound the kidneys was negative. Dialysis cath will be inserted today. Today's evaluation of 04/27/2020, I am seeing the patient for a follow-up. As mentioned earlier, this is a case of coronary via/fluid 19 related pneu monia/ARDS and the patient remains intubated on a mechanical ventilator. This morning, she is assist-control mode at the rate of 32 with a tidal volume of 100 and FiO2 of 60% with a PEEP of 15. The blood gases from today shows a pH of 7.21 with a pCO2 of 64 and pO2 of 70. The patient is very much success with the mechanical ventilator. The patient is still on propofol running at 40 mcg/kg per minute. She is also on Nimbex and she is paralyzed in the maxillary running at 1 mcg/kg per minute. I think it's time to give the patient a paralytic holiday today. Her peak airway pressure on a mechanical ventilator is in order of 33 with a static pressure of around 30. The chest x-ray from today is showing a bilateral pulmonary infiltrates which is more so in the lower lobes bilaterally. No major interval change compared to yesterday. ET tube is in a good location. NG tube was also within the stomach and is also in a good location. IV fluids are running in the form of 0.9 at the rate of 50 mL an hour. The neck fluid balance over the past 24 hours is +1.9 L and 4.1 L earlier than 3.0 L earlier. As such the patient has been a significant positive fluid balance pH is undergoing hemodialysis in the last bout of hemodialysis was yesterday. A total of 1 L of fluid was removed. I think ultrafiltration is to be somewhat aggressively. The white cell count is at 30 the creatinine today is at 3.37 with a BUN of 71. The patient also has a white cell count of 30. Hemoglobin is at 14.7. Enteral feeding for nutritional support is running and the patient is on Nepro. Inflammatory markers today showed a CRP of 40 which is lower compared to yesterday. LDH is still pending. Last LDH level was elevated at 2444 and a progressive on 11 was 0.39 which is essentially low knowing that the patient has an underlying acute kidney injury. The patient's cardiac rhythm is A. fib and the rate is ranging between 100 and 120. The patient is currently on amiodarone at 1 mg/m 04/28/2020, the patient remains intubated on a mechanical ventilator. The patient has a Covid 19 related pneumonia/ARDS. On today's evaluation, the patient is on propofol running at 50 mcg/kg per minute. The patient seems to be off the paralytics since yesterday. On today's evaluation, she was breathing quite rapidly and she was tachypneic and the pulses was in the mid 80s. Earlier this morning showed an assist-control mode of mechanical ventilation at the rate of 32 with a tidal volume of 400 and FiO2 of 65% with a PEEP of 15. The blood gases from today showed a pH of 7.31 with a pCO2 of 50 and pO2 of 61. Chest x- ray shows limited infiltration of the lung bases bilaterally. The white cell co unt was at 33.5. Hemoglobin is 13.4. The d-dimer is at 3.82. The LDH level is down to 1581. The CRP level is down to 21.9. The patient is not making any urine. Urine output is minimal at one time. BUN is at 63 with a creatinine of 3.8 and the rest of the electrolytes are all within normal limits. The patient is receiving her first session of hemodialysis today. Meanwhile, the patient remains on a A. fib rhythm and the patient is on amiodarone at 1 mg per minute and the patient is also on Cardizem running at 15mg an hour. She is less tachycardic while on treatment. Also, the patient is feeding for nutritional support and the patient is on vital high protein running at the rate of 27 mL an hour. The patient remains on Solu-Medrol at a dose of 60 mg every 6 hours, we were considering Actemra , and based on our discussion with the pharmacy, and based on the availability of the medication and its limited criteria for use, we were not able to deliver the medication to this patient. On 04/29/2020, the patient remains intubated on a mechanical ventilator. I have elected discussion with the nephew who is a retired physician. He expressed wishes to transfer for at least consider other interventions such as ECMO on this patient. I personally think that she is not a candidate for this type of treatment. I contacted the [facility] team and the chamber was declined. The nephew was informed to. Meanwhile, I continue to support this patient. Intensive care unit. The patient remains in acute hypoxic respiratory failure secondary to Covid 19 related pneumonia/ARDS. She remains sedated with propofol running at the micrograms and I'm in the process of weaning the propofol to a lesser degree of sedation. At the same time, the patient is on fentanyl running at 50 mcg/h. The patient remains on a tidal volume of 400 with an FiO2 of 70% with a PEEP of 5 and the respiratory of 26. The morning blood gases showed a pH of 7.24 with a pCO2 of 56 and pO2 of 75. Chest x-ray showing diffuse bilateral pulmonary infiltrates, probably slightly worse compared to yesterday. She remains on IV Solu-Medrol. Markers from today shows a LDH level of 1281, her CRP level is down to 17.8. The pro calcitonin level was at 0.39. Hemodynamically, the patient is still on a combination of Cardizem and amiodarone drip. Cardizem is running at 50 mg an hour and amiodarone drip is at 0.5 mg per minute and her heart is on a under much better control for now. Amiodarone can be switched to oral. The patient is also on IV fluids at 20 mL an hour. Her last bout of hemodialysis was yesterday with ultrafiltration of 1 L. I think she'll be given a break of dialysis. Her urine output is 5 ML's over the past 4 hours. Bryan cath is in place. She is afebrile. Enteral f eeding for nutritional support in the form of vital high protein at the rate of 27 mL an hour. She is tolerating his tube feeds. He is having some liquidy bowel movements. Stool for C. diff was negative. No abdominal distention. No other significant events overnight otherwise. Objective - Vital Signs Vital signs: Vital Signs Temp 98.4 F 04/29/20 04:00 Pulse 73 04/29/20 06:00 Resp 23 04/29/20 06:00 BP 114/55 04/28/20 13:06 Pulse Ox 94 L 04/29/20 06:00 Intake & Output 04/28/20 04/29/20 04/29/20 18:59 06:59 18:59 Intake Total 3861.952 8702.357 Output Total 1015 163 Balance 284.847 1236.357 Weight 113.6 kg Intake: IV 416 253 Diana flush 36 33 Fluconazole in NaCl,Iso- 50 Osm 100 mg In Saline 1 50ml.bag @ 50 mls/hr IVPB DAILY PERRY Rx#:[id number] Sodium Chloride 0.9% 1, 330 220 000 ml @ 50 mls/hr IV . Q20H PERRY Rx#:[id number] Intake, IV Titration 635.578 869.357 Amount Amiodarone 360 mg In 200 391.665 Dextrose 5% in Water 200 ml @ 1 MG/MIN 33.333 mls/ hr IV .Q6H PERRY Rx#: [id number] Diltiazem 125 mg In 125 108 Sodium Chloride 0.9% 100 ml @ 10 MG/HR 10 mls/hr IV .[id number] PERRY Rx#: [id number] Piperacillin-Tazobactam 3 100 .375 gm In Sodium Chloride 0.9% 100 ml @ 25 mls/hr IVPB Q12H P[facility]Y Rx# :[id number] fentaNYL (PF) 1,000 mcg 10.578 80.972 In Sodium Chloride 0.9% 80 ml @ Per Protocol IV . Q0M PERRY Rx#:[id number] propofoL 1,000 mg In 200 288.72 Empty Bag 1 bag @ Titrate IV .Q0M PERRY Rx#: [id number] Tube Feeding 324 297 Other 90 90 Output: Urine 15 163 Hemodialysis 1000 Other: Voiding Method Indwelling Catheter Indwelling Catheter ABP, PAP, CO, CI - Last Documented Arterial Blood Pressure 128/55 - Exam GENERAL EXAM: Intubated, sedated 69-year-old female patient, critically ill. Intubated on a mechanical ventilator and the patient is sedated and she is off paralytics for now, and the patient is currently on a combination of fentanyl and propofol for sedation. She is quite suggest the mechanical ventilator. HEAD: Normocephalic. EYES: Sluggish reaction of pupils, equal size. NOSE: Clear with pink turbinates. THROAT: Oral endotracheal and gastric tube secured in place. No erythema or exudates. NECK: No masses, no JVD. CHEST: No chest wall deformity. LUNGS: Equal air entry with crackles in the bilateral posterior bases. CVS: S1 and S2 normal with no audible murmur, irregular rhythm. The patient continues to be in atrial fibrillation. The rate is under much better control for now ABDOMEN: No hepatosplenomegaly, normal bowel sounds, no guarding or rigidity. SPINE: No scoliosis or deformity SKIN: No rashes CENTRAL NERVOUS SYSTEM: Sedated, tone is normal in all 4 extremities. Pupils are equal and reactive to light. No facial asymmetry. I think she is riding the mechanical ventilator and she is deeply sedated. We'll gradually wean off the propofol. EXTREMITIES: There is +1 peripheral edema in all 4 extremities. No clubbing, no cyanosis. Peripheral pulses are intact. - Labs CBC & Chem 7: 04/29/20 04:15 04/29/20 04:15 Labs: Abnormal Lab Results - Last 24 Hours (Table) 04/28/20 04/28/20 04/28/20 Range/Units 04:45 04:45 10:43 WBC (3.8-10.6) k/uL Neutrophils # (1.3-7.7) k/uL Lymphocytes # (1.0-4.8) k/uL ABG pH 7.30 L (7.35-7.45) ABG pCO2 54 H (35-45) mmHg ABG pO2 54 L* (83-108) mmHg ABG HCO3 27 H (21-25) mmol/L ABG Total CO2 28 H (19-24) mmol/L ABG O2 Saturation 87.2 L (94-97) % Sodium (137-145) mmol/L BUN (7-17) mg/dL Creatinine (0.52-1.04) mg/dL Glucose (74-99) mg/dL POC Glucose (mg/dL) (75-99) mg/dL Calcium (8.4-10.2) mg/dL Ferritin 2186.1 H (10.0-291.0) ng/mL ALT (4-34) U/L Lactate Dehydrogenase (313-618) U/L Creatine Kinase (30-135) U/L C-Reactive Protein (<10.0) mg/L Total Protein (6.3-8.2) g/dL Albumin (3.5-5.0) g/dL Procalcitonin 0.39 H (0.02-0.09) ng/mL 04/28/20 04/28/20 04/28/20 Range/Units 11:20 11:44 21:52 WBC (3.8-10.6) k/uL Neutrophils # (1.3-7.7) k/uL Lymphocytes # (1.0-4.8) k/uL ABG pH (7.35-7.45) ABG pCO2 (35-45) mmHg ABG pO2 (83-108) mmHg ABG HCO3 (21-25) mmol/L ABG Total CO2 (19-24) mmol/L ABG O2 Saturation (94-97) % Sodium (137-145) mmol/L BUN (7-17) mg/dL Creatinine (0.52-1.04) mg/dL Glucose (74-99) mg/dL POC Glucose (mg/dL) 102 H 113 H 173 H (75-99) mg/dL Calcium (8.4-10.2) mg/dL Ferritin (10.0-291.0) ng/mL ALT (4-34) U/L Lactate Dehydrogenase (313-618) U/L Creatine Kinase (30-135) U/L C-Reactive Protein (<10.0) mg/L Total Protein (6.3-8.2) g/dL Albumin (3.5-5.0) g/dL Procalcitonin (0.02-0.09) ng/mL 04/29/20 04/29/20 04/29/20 Range/Units 00:35 04:15 04:15 WBC 29.0 H (3.8-10.6) k/uL Neutrophils # 27.7 H (1.3-7.7) k/uL Lymphocytes # 0.4 L (1.0-4.8) k/uL ABG pH (7.35-7.45) ABG pCO2 (35-45) mmHg ABG pO2 (83-108) mmHg ABG HCO3 (21-25) mmol/L ABG Total CO2 (19-24) mmol/L ABG O2 Saturation (94-97) % Sodium 132 L (137-145) mmol/L BUN 76 H (7-17) mg/dL Creatinine 4.03 H (0.52-1.04) mg/dL Glucose 153 H (74-99) mg/dL POC Glucose (mg/dL) 184 H (75-99) mg/dL Calcium 7.6 L (8.4-10.2) mg/dL Ferritin (10.0-291.0) ng/mL ALT 35 H (4-34) U/L Lactate Dehydrogenase 1281 H (313-618) U/L Creatine Kinase 26 L (30-135) U/L C-Reactive Protein 17.8 H (<10.0) mg/L Total Protein 5.0 L (6.3-8.2) g/dL Albumin 2.3 L (3.5-5.0) g/dL Procalcitonin (0.02-0.09) ng/mL 04/29/20 04/29/20 Range/Units 04:18 04:29 WBC (3.8-10.6) k/uL Neutrophils # (1.3-7.7) k/uL Lymphocytes # (1.0-4.8) k/uL ABG pH 7.24 L (7.35-7.45) ABG pCO2 56 H (35-45) mmHg ABG pO2 75 L (83-108) mmHg ABG HCO3 (21-25) mmol/L ABG Total CO2 26 H (19-24) mmol/L ABG O2 Saturation 93.8 L (94-97) % Sodium (137-145) mmol/L BUN (7-17) mg/dL Creatinine (0.52-1.04) mg/dL Glucose (74-99) mg/dL POC Glucose (mg/dL) 147 H (75-99) mg/dL Calcium (8.4-10.2) mg/dL Ferritin (10.0-291.0) ng/mL ALT (4-34) U/L Lactate Dehydrogenase (313-618) U/L Creatine Kinase (30-135) U/L C-Reactive Protein (<10.0) mg/L Total Protein (6.3-8.2) g/dL Albumin (3.5-5.0) g/dL Procalcitonin (0.02-0.09) ng/mL Assessment and Plan Plan: 1 Acute hypoxemic respiratory failure secondary to acute COVID 19 pneumonia/pneumonitis, failed previous oxygenation treatments and required intubation and mechanical ventilatory support 04/24/2020. The patient completed a course of Remdesivir on the 04/16/2020, received 2 units of convalescent plasma patient remains on IV steroids and anticoagulation the form of Lovenox. The patient remains sadated and off paralysis and the patient is is on IV solumedrol and empiric antibiotic coverage with IV Zosyn. The patient is on low tidal volume ventilation with tidal volume of 400 the rate of 26 recurrent. PEEP 5 with an FiO2 of 60%. Blood gases is not showing any significant improvement compared to yesterday. Chest x-ray findings are also stable with diffuse bilateral pulmonary infiltrates. 2 A. fib RVR, currently on amiodarone drip and the patient is also on a Cardizem drip for rate control. 3 Possible urinary tract infection related to yeast, current empiric antibiotic coverage includes Zosyn and Diflucan was added 04/23/2020 4 acute kidney injury, the patient remains oliguric and the patient is dialysis dependent and the last session of dialysis was yesterday 5 Obesity 6 Elevated d-dimer, without evidence of pulmonary embolism. Remains on Lovenox 30 mg sub daily and this was adjusted based on his underlying acute kidney injury in renal failure. D-dimer is being monitored. The less level of d-dimer was at 3.82 7 Leukocytosis, possibly related to IV steroids, rule out possibility of a bacterial superinfection of pro-calcitonin is low and the patient has been on IV Zosyn since 2020.The pro-calcitonin level currently is at 0.39 and a white cell count is down to 29 8 Elevated liver enzymes likely related to viral pneumonia 9 Elevated inflammatory markers related to acute COVID 19 pneumonia, And the levels remain quite elevated and repeat levels will be obtained. The LDH and CRP compared to yesterday he slightly improved yet still elevated. Plan: She was taken off the paralytics and the patient is on propofol and fentanyl for sedation Switch this patient to obesity plus mode at the rate of 26 tidal volume of 400, I time of 0.9, FiO2 of 70% with a PEEP of 15 and the patient will have a follow- up blood gases done. Amiodarone and Cardizem drip for rate control and discontinued amiodarone IV and switch her to 200 mg of amiodarone by mouth twice a day Remains on IV Solu-Medrol, Lovenox, Zosyn, and the dose of Lovenox has been adjusted to a account for the acute kidney injury patient is currently receiving 30 mg subcu on a daily basis The patient is a hemodialysis yesterday with ultrafiltration of 1.0 L. no dialysis for today feeding for nutritional support, currently on vital high protein Prognosis is poor Family is updated We will continue to follow and make further recommendations based on her cli nical status Critical care time >30 minutes Time with Patient: Greater than 30 Time with Patient: Greater than 30
[2020-04-29] MEDS: CHLORHEXIDINE GLUCONATE 15 ML CUP MUCOUS MEM SCH ×2 (09:05→19:58)
[2020-04-29] MEDS: CHOLECALCIFEROL 25 MCG (1000 IU) TABLET PO SCH (09:05)
[2020-04-29] MEDS: ZINC SULFATE 220 MG CAP PO SCH (09:05)
[2020-04-29] MEDS: ASCORBIC ACID 500 MG TAB PO SCH (09:05)
[2020-04-29] MEDS: ENOXAPARIN 30 MG/0.3 ML SYRINGE SQ SCH (09:05)
[2020-04-29] MEDS: FAMOTIDINE 20 MG TAB OG-TUBE SCH (09:05)
[2020-04-29] MEDS: AMIODARONE 200 MG TAB PO SCH ×2 (09:06→19:58)
[2020-04-29] MEDS: MULTIVITAMINS, THERA 1 EACH TAB PO SCH (09:06)
[2020-04-29] MEDS: FOLIC ACID 1 MG TAB PO SCH (09:06)
[2020-04-29] MEDS: FLUCONAZOLE IN NACL,ISO-OSM 100 MG in SALINE 1 50ML.BAG IVPB SCH (09:06)
[2020-04-29 09:17] LABS: Glucose,Whole Blood 142 mg/dL (75-99)
[2020-04-29 09:36] LABS: ABG Base Excess -4.3 mmol/L; ABG HCO3 23 mmol/L (21-25); ABG Oxygen Saturation 95.2 % (94-97); ABG PCO2 51 mmHg (35-45); ABG PH 7.26 (7.35-7.45); ABG PO2 80 mmHg (83-108); ABG TCO2 24 mmol/L (19-24); Allen Test Performed? Yes
[2020-04-29 09:36] LABS: Ferritin 2063.6 ng/mL (10.0-291.0)
[2020-04-29 11:59] LABS: Glucose,Whole Blood 162 mg/dL (75-99)
[2020-04-29] MEDS: THIAMINE 100 MG TAB PO SCH (12:38)
[2020-04-29 16:36] LABS: Glucose,Whole Blood 122 mg/dL (75-99)
--- NOTE | 2020-04-29 17:08 | PN ---
PROGRESS NOTE DATE OF SERVICE: 04/29/2020 REASON FOR FOLLOWUP: Pneumonia. INTERVAL HISTORY: The patient is currently afebrile. The patient remains hemodynamically stable, not on any pressor support. FiO2 is currently 60%. No significant purulent secretions through the ET. She has been tolerating her tube feeds. Had developed diarrhea, for which a fecal management system has been placed. PHYSICAL EXAMINATION: Blood pressure 138/56, pulse of 98, temperature 97.8. She is currently 91% on 50% FiO2. General description is an elderly female lying in bed in no distress. RESPIRATORY SYSTEM: Unlabored breathing with diminished breath sounds HEART: S1, S2 irregular. ABDOMEN: Soft. Mildly distended. EXTREMITIES: Some trace edema of the feet. LABS: Hemoglobin is 12.3, white count 29,000. BUN of 76, creatinine 4.03. DIAGNOSTIC IMPRESSION AND PLAN: Patient with acute respiratory failure which is multifactorial in this patient with COVID-19 infection. She has completed her remdesivir therapy. Patient now on steroids, empiric antibiotics; to continue while monitoring clinical course closely. Prognosis remains guarded. Continue with supportive care. MMODL / IJN: [id number] / MTDD
[2020-04-29 19:56] LABS: Glucose,Whole Blood 132 mg/dL (75-99)
--- NOTE | 2020-04-29 20:39 | P.PN ---
Subjective Ms. Mccoy is a 69-year-old female with a past medical history of hypertension and thyroid disorder admitted to the hospital for acute hypoxic respiratory failure secondary to COVID 19 pneumonia. Patient has extensive bilateral interstitial pneumonia. She is on a low and pulmonary Dr. Mathews is following the patient. Patient received a convalescent plasma, is also on Remdesivir. On 04/17/2020- This morning patient was evaluated in the ICU. Patient is comfortably sitting in a chair states that her breathing is improving gradually. She denies having any chest pain or palpitations. No cough or hemoptysis. She denies having any swelling or for lower extremities. No abdominal pain nausea vomiting or diarrhea. She denies having any dysuria or hematuria, she has a Bryan's catheter in place. On reviewing her vitals temperature 98.1 heart rate 75 is 5817, blood pressure 1:30 bradycardia. Saturating at 96% on a Aervo -60%. On 04/18/2020 - patient was seen and examined in the ICU. Patient is sitting in a chair by the bedside, states that her breathing has worsened compared to yesterday. Patient is on high flow Airvo, saturating in the low 90s. She denies having any chest pain or palpitations. She complains of cough that is nonproductive. Patient had a chest x-ray done showing stable bilateral air space disease. As the patient was having few episodes of tachycardia, she was started on Lopressor this morning. Patient's inflammatory markers are noted to be high. On reviewing her vitals saturating at 90% on high flow Airvo, heart rate 70s to 80s, respiratory rate 20-25, blood pressure 106-67. In reviewing her labs white count of 29.3, hemoglobin 16.8, platelets 369. D-dimer 6.99, LDH 2969, CRP 63.9. On 04/19/2020 - patient is seen and examined in the ICU. She is currently on BiPAP, as her respiratory status has worsened compared to yesterday. Patient denies having any chest pain or palpitations. No abdominal pain nausea vomiting or diarrhea. No dysuria or hematuria. She is on BiPAP 14/6 and 100% FiO2. On reviewing her vitals temperature is 99.2, respiratory rate is 25, heart rate 70, blood pressure 10 9 x 71. Reviewing the labs white count of 27.3, hemoglobin 17.4, platelets 314. Sodium 133, potassium 4.4, chloride 90, bicarbonate 35, BUN 31, creatinine 0.72. Ferritin 3195, CRP 217 and LDH 2747. 04/20/2020 This is a pleasant 69 years old female with multiple medical problems was adm itted for bilateral Covid pneumonia, she is currently on aervo at 90%/60 L of oxygen, saturating 89%. Rest of Vitas looks stable Also she is on BiPAP All the night. She is able to eat and drink, no pressors She is on normal saline at 75 mL/h with adequate urine output Patient is currently ON Medrol 40 mg twice daily, Lovenox 60 mg twice Mary and vitamin C and zinc. She finished her remdisvir and convelecent plasma. 04/21/2020 Patient remains in the ICU bed and respiratory support for her bilateral Covid pneumonia. She still dyspneic especially with exertion and she still needs BiPAP during the day shift. Also she had a fever today of 102.2. Patient is empirically on Zosyn/calcitonin check today showing normal level at 0.07. She has leukocytosis of 29K. I agree with Zosyn and I recommended to continue with that for now. Also patient is on steroids 60 mg every 6 hours. As there is no more significant progress progress in her clinical picture Glucose is 123 and inflammatory markers still elevated 04/22/2020 this is a pleasant 69 yo F who is admitted to the ICU for covid pneumonia, she is still on BiPAP dependant , TNP is started for her nutrition for this reasone. her oxygen saturation is on low 90s% cxr: diffuse interstitial opacities and worsening airspace disease in the left lower lung. consider interstitial edema wbc is sligtly less 26K, she is currently continued on zosyn , and solumedrol 60 mg. and normal saline increased to 150 ml/hr. and lovenox 60 mg BID she finised her Remdisvir and convelescent Plasma. 04/23/2020 Patient looks very tired, she came Off the BiPAP today morning and she was placed back on airvo at 60 L she is back and forth between BiPAP and airvo, however she probably will need BiPAP at night Inflammatory markers and d-dimer increased, ferritin 3100 up to 3700 and d-dimer 3 up to 5 Chest x-ray showing bilateral middle and lower infiltrates with slight improvement Treatments with antibiotics Zosyn, fluconazole was added today. Also she is also on Solu-Medrol 60 mg, normal sling was decreased to 50 mL per hour, Lovenox 60 mg twice daily, TPN and she is on vitamin C and zinc 04/24/2020 Patient today her clinical condition deteriorated, she was hypoxic this morning with oxygen saturation in the 70s percent and she was tachycardic with heart rate 140-150, patient ended up being intubated in the morning and she was in an you onset of A. fib and started on Cardizem drip on 15 mg however her heart rate was still elevated, cardiology team were consulted, blood pressure was on the low normal side. Amiodarone drip was started. Cardiology team and Cardizem drip was shut to 15 mg/h. Also insulin drip for hyperglycemia with sugar more than 300. 04/25/2020 Patient was intubated yesterday for deteriorated respiratory status, ABG showing elevated pCO2 on 496 with acidosis. 7.0 and 7.1. Oxygen saturation is acceptable at 107. She remains on mechanical ventilation managed by pulmonary/critical care team, currently her bruits and draped with before meals at 40 to help with her acidosis. Her creatinine worsened today 0.5 up to 1.3, with potassium elevated as well as 5.5 nephrology team were consulted who ordered insulin/dextrose 50%, sodium bicarb 1 and Lasix 80 mg 1. Parts Salvager recommended hemodialysis and no improvement in 24 hours Chest x-ray showing pneumonia and edema which is stable from yesterday. Sugar improved and we could switch her insulin drip to insulin sliding scale A. fib is improved and converted to sinus rhythm with amiodarone which is switched to Pills Now per Grain Combiner, She Is Already on Anticoagulation 04/26/20 Patient remains in the ICU sedated and intubated with pulmonary/ critical care team following the case closely. Showing trending down leukocytosis to 20 6.1K. Creatinine up to 2.8, Patient is developing anuria with acute kidney injury, nephrology evaluation is appreciated and hemodialysis is initiated. Chest x-ray showing interstitial infiltrate especially in the mid to lower lungs Echocardiogram showed ejection fraction of 55-60%, and atrial fibrillation i mproved yesterday with amiodarone She remains on Solu-Medrol, Zosyn and fluconazole, normal sinus 50 and vitamin C and zinc Lovenox dose was adjusted to renal function down to 50 mg daily Prognosis remains guarded 04/27/2020 Patient with bilateral: With pneumonia that her purse and eventually got i ntubated, pulmonary/critical care team and several consultants are following the case, vent management as per pulmonary team. She has leukocytosis of 13.8 K. Creatinine today is 3.37 Patient undergoing hemodialysis for the last 2-3 days for acute kidney injury and [facility] Patient A. fib heart rate becomes uncontrolled today and her amiodarone to switch to a drip. Other medication including Solu-Medrol 60 mg, vitamin C and zinc, Zosyn and fluconazole, she is on normal saline at 50 mL/h and Lovenox dose dropped to 30 mg daily 04/28/2020 Patient remains intubated and sedated in the ICU, followed closely by critical care team. Vital showing tachycardia and tachypnea. WBC is 30 3.5K. Cre atinine 3.8, sodium 134. Sugar is controlled. Inflammatory markers are elevated. She is undergoing hemodialysis today Chest x-ray from today showing no change from last one yesterday Medication-hernandez he remains on Solu-Medrol, Zosyn, 30 mg of Lovenox daily which is renal dose and amiodarone drip. Normal saline at 50 mm was discontinued today 04/29/2020 This is a pleasant 69 years old female with bilateral, with pneumonia. Patient remains in the ICU sedated and intubated with pulmonary/critical care team following the case closely. Normal sedation holiday for the patient currently She already finished her treatment with remdesivir and convalescent plasma, and currently she is on vitamin C and zinc. She was on steroids in the form of high dose of Solu-Medrol 60 mg and Zosyn and fluconazole for possible bacteria and fungal infection associated with viral infection. Patient course was complicated by renal failure and new or so she underwent hemodialysis, last HD was yesterday, she is kept on renal dose of Lovenox 30 mg daily. Other complication is atrial fibrillation with RVR which is currently controlled with oral amiodarone and low-dose of Cardizem drip. Patient condition remains critical and she kept on mechanical ventilation with close monitoring Procalcitonin is unchanged yesterday at 0.39 compared to one week ago at 0.39. We'll order another test tomorrow Review of systems N/a Active Medications Generic Name Dose Route Start Last Admin Trade Name Freq PRN Reason Stop Dose Admin Acetaminophen 650 mg 04/11/20 16:48 04/21/20 04:34 Acetaminophen Tab 325 Mg Tab PO 650 mg Q6HR PRN Administration Mild Pain or Fever > 100.5 Albuterol Sulfate 2 puff 04/25/20 16:00 04/29/20 10:50 Albuterol Hfa Inhaler INHALATION 2 puff RT-QID PERRY Administration Amiodarone HCl 200 mg 04/29/20 09:00 04/29/20 09:06 Amiodarone 200 Mg Tab PO 200 mg BID PERRY Administration Ascorbic Acid 250 mg 04/12/20 09:00 04/29/20 09:05 Ascorbic Acid 500 Mg Tab PO 250 mg DAILY PERRY Administration Chlorhexidine Gluconate 15 ml 04/24/20 21:00 04/29/20 09:05 Chlorhexidine Gluconate 15 Ml Cup MUCOUS MEM 15 ml BID PERRY Administration Cholecalciferol 25 mcg 04/27/20 10:30 04/29/20 09:05 Cholecalciferol 25 Mcg (1000 Iu) Tablet PO 25 mcg DAILY PERRY Administration Enoxaparin Sodium 30 mg 04/27/20 09:00 04/29/20 09:05 Enoxaparin 30 Mg/0.3 Ml Syringe SQ 30 mg DAILY PERRY Administration Famotidine 20 mg 04/27/20 09:00 04/29/20 09:05 Famotidine 20 Mg Tab OG-TUBE 20 mg Q24HR PERRY Administration Folic Acid 1 mg 04/12/20 12:00 04/29/20 09:06 Folic Acid 1 Mg Tab PO 1 mg DAILY@1200 PERRY Administration Hydromorphone HCl 1 mg 04/24/20 16:50 04/26/20 10:55 Hydromorphone 1 Mg/Ml 1 Ml Syringe IVP 1 mg Q2HR PRN Administration Pain Fluconazole/Sodium Chloride 50 mls @ 50 mls/hr 04/23/20 09:15 04/29/20 09:06 100 mg/ IV Solution IVPB 50 mls/hr DAILY PERRY Administration Propofol 1,000 mg/ IV Solution 100 mls @ 0 mls/hr 04/24/20 08:45 04/29/20 12:38 IV 40 mcg/kg/min .Q0M PERRY 27.264 mls/hr Administration Protocol Titrate Cisatracurium Besylate 200 mg/ 200 mls @ 12.516 mls/hr 04/24/20 16:15 04/29/20 08:56 Sodium Chloride IV Not Given .[id number] PERRY Protocol 2 MCG/KG/MIN Piperacillin Sod/Tazobactam 100 mls @ 25 mls/hr 04/26/20 12:00 04/29/20 12:38 Sod 3.375 gm/ Sodium Chloride IVPB 25 mls/hr Q12H PERRY Administration Diltiazem HCl 125 mg/ Sodium 125 mls @ 10 mls/hr 04/26/20 17:30 04/29/20 12:38 Chloride IV 15 mg/hr .[id number] PERRY 15 mls/hr Administration 10 MG/HR Fentanyl Citrate 1,000 mcg/ 100 mls @ 0 mls/hr 04/28/20 09:00 04/29/20 00:22 Sodium Chloride IV 0.5 mcg/kg/hr .Q0M PERRY 5.77 mls/hr Administration Protocol Per Protocol Insulin Aspart 0 unit 04/25/20 12:00 04/29/20 12:39 Insulin Aspart (Novolog) 100 Unit/Ml Vial SQ 3 unit Q4H PERRY Administration Protocol Levothyroxine Sodium 50 mcg 04/12/20 06:30 04/29/20 06:05 Levothyroxine 50 Mcg Tab PO 50 mcg DAILY@0630 PERRY Administration Melatonin 5 mg 04/19/20 19:45 04/19/20 20:08 Melatonin 5 Mg Tablet PO 5 mg HS PRN Administration Insomnia Methylprednisolone Sodium Succinate 60 mg 04/21/20 12:00 04/29/20 12:38 Methylprednisolone Sod Succi 125 Mg/2 Ml Vial IV 60 mg Q6HR PERRY Administration Miscellaneous Information 1 each 04/24/20 18:43 Potassium Replacement Protocol 1 Each Misc MISCELLANE DAILY PRN Per Protocol Protocol Morphine Sulfate 2 mg 04/23/20 08:34 04/26/20 16:07 Morphine Sulfate 2 Mg/Ml Syringe IVP 2 mg Q6H PRN Administration Pain/Discomfort Multivitamins 1 each 04/12/20 12:00 04/29/20 09:06 Multivitamins, Thera 1 Each Tab PO 1 each DAILY@1200 PERRY Administration Naloxone HCl 0.2 mg 04/11/20 16:48 Naloxone 0.4 Mg/Ml 1 Ml Vial IV Q2M PRN Opioid Reversal Ondansetron HCl 4 mg 04/15/20 20:08 Ondansetron 4 Mg/2 Ml Vial IVP Q6HR PRN Nausea And Vomiting Thiamine HCl 100 mg 04/12/20 12:00 04/29/20 12:38 Thiamine 100 Mg Tab PO 100 mg DAILY@1200 PERRY Administration Zinc Sulfate 220 mg 04/12/20 09:00 04/29/20 09:05 Zinc Sulfate 220 Mg Cap PO 220 mg DAILY PERRY Administration Objective - Vital Signs Vital signs: Vital Signs Temp 97.8 F 04/29/20 08:00 Pulse 98 04/29/20 13:00 Resp 33 H 04/29/20 13:00 BP 114/55 04/28/20 13:06 Pulse Ox 91 L 04/29/20 10:00 Intake & Output 04/28/20 04/29/20 04/29/20 18:59 06:59 18:59 Intake Total 8690.811 0570.357 677.042 Output Total 1015 163 30 Balance 642.987 8620.357 647.042 Weight 113.6 kg Intake: IV 416 253 111 [place] flush 36 33 21 Fluconazole in NaCl,Iso- 50 50 Osm 100 mg In Saline 1 50ml.bag @ 50 mls/hr IVPB DAILY PERRY Rx#:[id number] Sodium Chloride 0.9% 1, 330 220 40 000 ml @ 50 mls/hr IV . Q20H [facility] Rx#:[id number] Intake, IV Titration 635.578 869.357 320.042 Amount Amiodarone 360 mg In 200 391.665 Dextrose 5% in Water 200 ml @ 1 MG/MIN 33.333 mls/ hr IV .Q6H [facility] Rx#: [id number] Diltiazem 125 mg In 125 108 125 Sodium Chloride 0.9% 100 ml @ 10 MG/HR 10 mls/hr IV .[id number] PERRY Rx#: [id number] Piperacillin-Tazobactam 3 100 .375 gm In Sodium Chloride 0.9% 100 ml @ 25 mls/hr IVPB Q12H PERRY Rx# :[id number] fentaNYL (PF) 1,000 mcg 10.578 80.972 In Sodium Chloride 0.9% 80 ml @ Per Protocol IV . Q0M PERRY Rx#:[id number] propofoL 1,000 mg In 200 288.72 195.042 Empty Bag 1 bag @ Titrate IV .Q0M PERRY Rx#: [id number] Tube Feeding 324 297 216 Other 90 90 30 Output: Urine 15 163 30 Hemodialysis 1000 Other: Voiding Method Indwelling Catheter Indwelling Catheter Indwelling Catheter ABP, PAP, CO, CI - Last Documented Arterial Blood Pressure 138/56 - Exam -GENERAL: The patient is intubated and sedated HEENT: Pupils are round and equally reacting to light. EOMI. No scleral icterus. No conjunctival pallor. Normocephalic, atraumatic. No pharyngeal erythema. No thyromegaly. CARDIOVASCULAR: S1 and S2 present. No murmurs, rubs, or gallops. -PULMONARY: Chest is clear to auscultation, bilateral crepitation ABDOMEN: Soft, nontender, nondistended, normoactive bowel sounds. No palpable organomegaly. MUSCULOSKELETAL: No joint swelling or deformity. EXTREMITIES: No cyanosis, clubbing, or pedal edema. NEUROLOGICAL: Gross neurological examination did not reveal any focal deficits. SKIN: No rashes. no petechiae. - Labs CBC & Chem 7: 04/29/20 04:15 04/29/20 04:15 Labs: Abnormal Lab Results - Last 24 Hours (Table) 04/28/20 04/29/20 04/29/20 Range/Units 21:52 00:35 04:15 WBC 29.0 H (3.8-10.6) k/uL Neutrophils # 27.7 H (1.3-7.7) k/uL Lymphocytes # 0.4 L (1.0-4.8) k/uL ABG pH (7.35-7.45) ABG pCO2 (35-45) mmHg ABG pO2 (83-108) mmHg ABG Total CO2 (19-24) mmol/L ABG O2 Saturation (94-97) % Sodium (137-145) mmol/L BUN (7-17) mg/dL Creatinine (0.52-1.04) mg/dL Glucose (74-99) mg/dL POC Glucose (mg/dL) 173 H 184 H (75-99) mg/dL Calcium (8.4-10.2) mg/dL Ferritin (10.0-291.0) ng/mL ALT (4-34) U/L Lactate Dehydrogenase (313-618) U/L Creatine Kinase (30-135) U/L C-Reactive Protein (<10.0) mg/L Total Protein (6.3-8.2) g/dL Albumin (3.5-5.0) g/dL 04/29/20 04/29/20 04/29/20 Range/Units 04:15 04:18 04:29 WBC (3.8-10.6) k/uL Neutrophils # (1.3-7.7) k/uL Lymphocytes # (1.0-4.8) k/uL ABG pH 7.24 L (7.35-7.45) ABG pCO2 56 H (35-45) mmHg ABG pO2 75 L (83-108) mmHg ABG Total CO2 26 H (19-24) mmol/L ABG O2 Saturation 93.8 L (94-97) % Sodium 132 L (137-145) mmol/L BUN 76 H (7-17) mg/dL Creatinine 4.03 H (0.52-1.04) mg/dL Glucose 153 H (74-99) mg/dL POC Glucose (mg/dL) 147 H (75-99) mg/dL Calcium 7.6 L (8.4-10.2) mg/dL Ferritin 2063.6 H (10.0-291.0) ng/mL ALT 35 H (4-34) U/L Lactate Dehydrogenase 1281 H (313-618) U/L Creatine Kinase 26 L (30-135) U/L C-Reactive Protein 17.8 H (<10.0) mg/L Total Protein 5.0 L (6.3-8.2) g/dL Albumin 2.3 L (3.5-5.0) g/dL 04/29/20 04/29/20 04/29/20 Range/Units 09:16 09:36 11:58 WBC (3.8-10.6) k/uL Neutrophils # (1.3-7.7) k/uL Lymphocytes # (1.0-4.8) k/uL ABG pH 7.26 L (7.35-7.45) ABG pCO2 51 H (35-45) mmHg ABG pO2 80 L (83-108) mmHg ABG Total CO2 (19-24) mmol/L ABG O2 Saturation (94-97) % Sodium (137-145) mmol/L BUN (7-17) mg/dL Creatinine (0.52-1.04) mg/dL Glucose (74-99) mg/dL POC Glucose (mg/dL) 142 H 162 H (75-99) mg/dL Calcium (8.4-10.2) mg/dL Ferritin (10.0-291.0) ng/mL ALT (4-34) U/L Lactate Dehydrogenase (313-618) U/L Creatine Kinase (30-135) U/L C-Reactive Protein (<10.0) mg/L Total Protein (6.3-8.2) g/dL Albumin (3.5-5.0) g/dL Assessment and Plan Assessment: COVID 19 pneumonia Acute hypoxic respiratory failure-status post intubation and mechanical ventilation New onset A. fib with RVR Acute kidney injury with anurea status post hemodialysis Increased d-dimer without evidence of PE Hyponatremia Leukocytosis Elevated inflammatory markers Hypertension Hypothyroidism History of bilateral posterior tibial tendon repair Obesity with BMI of 35 Plan: This is a pleasant 69 years old female with Covid pneumonia and hypoxic respiratory failure. Continue with oxygen supplementation as needed, intubated on mechanical ventilation with pulmonary/critical care team and follow the case closely. Monitor inflammatory markers. Continue with Solu-Medrol and Lovenox and zinc and vitamin C. continue with Lovenox, continue tube feeding, continue with antibiotics and steroids. Also she is on amiodarone start hemodialysis per nephrology team recommended Monitor WBC and kidney function Labs and medication were reviewed.. Continue same treatment. Continue with symptomatic treatment. Resume home medication. Monitor lytes and vitals. DVT and GI prophylaxis. Further recommendations as per clinical course of the patient DVT prophylaxis: Subcutaneous Lovenox GI Prophylaxis: Pepcid Prognosis is guarded
[2020-04-29 23:30] LABS: Glucose,Whole Blood 141 mg/dL (75-99)
[2020-04-30] MEDS: CISATRACURIUM 200 MG in SODIUM CHLORIDE 0.9% 180 ML IV SCH (01:47)
[2020-04-30] MEDS: DILTIAZEM 125 MG in SODIUM CHLORIDE 0.9% 100 ML IV SCH ×2 (02:20→12:13)
[2020-04-30 04:14] LABS: Glucose,Whole Blood 143 mg/dL (75-99)
[2020-04-30 04:37] LABS: Basophils # (A) 0.2 k/uL (0-0.2); Basophils % (A) 1 %; Eosinophils % (A) 0 %; HCT 38.7 % (34.0-46.0); HGB 12.7 gm/dL (11.4-16.0); Lymphocytes # (A) 0.2 k/uL (1.0-4.8); Lymphocytes % (A) 1 %; MCH 31.5 pg (25.0-35.0); MCHC 32.8 g/dL (31.0-37.0); MCV 96.1 fL (80.0-100.0); Mean Platelet Volume 8.3; Monocytes # (A) 0.7 k/uL (0-1.0); Monocytes % (A) 3 %; Neutrophils % (A) 96 %; Platelet Count 172 k/uL (150-450); RBC 4.03 m/uL (3.80-5.40); RDW 13.4 % (11.5-15.5); WBC 27.9 k/uL (3.8-10.6)
[2020-04-30 04:48] LABS: Neutrophils # (A) 26.7 k/uL (1.3-7.7)
[2020-04-30 04:51] LABS: Albumin 2.3 g/dL (3.5-5.0); C Reactive Protein 10.2 mg/L (<10.0); Calcium 7.5 mg/dL (8.4-10.2); Potassium 5.9 mmol/L (3.5-5.1); Total Bilirubin 0.6 mg/dL (0.2-1.3)
[2020-04-30 05:01] LABS: ABG Base Excess -7.4 mmol/L; ABG HCO3 22 mmol/L (21-25); ABG Oxygen Saturation 93.1 % (94-97); ABG PCO2 65 mmHg (35-45); ABG PO2 78 mmHg (83-108); ABG TCO2 24 mmol/L (19-24)
[2020-04-30] MEDS: INSULIN ASPART (NovoLOG) 100 UNIT/ML VIAL SQ SCH ×6 (05:20→23:53)
[2020-04-30] MEDS: methylPREDNISolone SOD SUCCI 125 MG/2 ML VIAL IV SCH ×4 (05:20→23:52)
[2020-04-30] MEDS: LEVOTHYROXINE 50 MCG TAB PO SCH (05:20)
[2020-04-30] MEDS: fentaNYL (PF) 1,000 MCG in SODIUM CHLORIDE 0.9% 80 ML IV SCH ×3 (05:21→22:42)
[2020-04-30 05:36] LABS: Allen Test Performed? no
--- NOTE | 2020-04-30 07:11 | XR ---
EXAMINATION TYPE: XR abdomen 1V DATE OF EXAM: 04/30/2020 COMPARISON: NONE HISTORY: Tube placed TECHNIQUE: One view abdominal series FINDINGS: Bibasilar subsegmental consolidation. NG tube appears coiled in left upper quadrant likely within the stomach. Hypertrophic and degenerative change of the spine. Bowel gas pattern nonspecific. Right-cally ed femoral line noted. IMPRESSION: 1. Nonspecific abdomen with no diagnostic evidence of obstruction. 2. Bibasilar infiltrate.
--- NOTE | 2020-04-30 07:14 | XR ---
EXAMINATION TYPE: XR chest 1V portable DATE OF EXAM: 04/30/2020 COMPARISON: 04/29/2020 HISTORY: Tube placement TECHNIQUE: Single frontal view of the chest is obtained. FINDINGS: Bilateral interstitial pattern with basilar infiltrates and tiny effusions. ET and NG tube stable. No sizable pneumothorax. Left-sided PICC line stable. IMPRESSION: 1. Mixed interstitial alveolar pattern stable correlate for interstitial pneumonia versus venous william estion.
[2020-04-30] MEDS: ALBUTEROL HFA INHALER INHALATION SCH ×4 (07:42→19:46)
[2020-04-30] MEDS: NOREPINEPHRINE 8 MG in SODIUM CHLORIDE 0.9% 250 ML IV SCH ×2 (07:46→12:14)
[2020-04-30 07:58] LABS: Glucose,Whole Blood 134 mg/dL (75-99)
--- NOTE | 2020-04-30 09:04 | P.PN ---
Subjective Progress Note Date: 04/30/20 This is a 69-year-old female who is being treated for COVID pneumonia, respiratory failure on mechanical ventilator and also acute renal failure. Patient is going to have dialysis catheter inserted. We are seeing the patient because of atrial fibrillation. Patient was on IV amiodarone, which were change d to by mouth amiodarone. Yesterday. She is getting 400 mg by mouth twice a day. She is currently seem to be sinus rhythm with frequent APCs with short course of SVT. Chest x-ray. Continue show bilateral pneumonias. Patient is being followed by pulmonology and also nephrology. We'll continue current medical therapy. 04/27/2020: This patient developed A. fib with RVR last night. Patient was initiated on IV amiodarone bolus and drip. Patient is currently on 1 mg drip. Heart rate in the 90s to 100 range. Patient is still sedated and intubated on mechanical ventilator. She is also being treated for renal failure. From [facility] standpoin, We'll continue amiodarone drip for now. A. fib with RVR related to underlying respiratory failure. Overall prognosis is guarded. 04/28/20: This patient is still on mechanical ventilation. Patient is requiring Levophed for blood pressure support. Patient is also on IV Cardizem and also IV amiodarone on heart rates in the 80s 70s and 80s. Patient doesn't have a urine output and she is on dialysis. Overall patient clinical status remains critical. From cardiac standpoint we'll continue amiodarone and Cardizem for rate control. We'll continue with ventilatory support. Pulmonary and also nephrology is following. . Patient prognosis is poor. 04/30/2020: This patient is still intubated and on sedation. She is also on intermittent dialysis. Her urine output seemed to be picking up. Patient is a [place] fibrillation with controlled ventricular response at this time. He amiodarone was switched from drip to 200 mg by mouth twice a day. She still on IV Cardizem at 10 mg per hour. This can be slowly tapered off as he tolerates. Patient is on multiple other medication for Covid pneumonia. Chest x-ray continue show diffuse infiltrates. Overall her prognosis seems to be poor. We'll continue to manage atrial fibrillation with combination of amiodarone by mouth and Cardizem IV. Cardizem could be tapered down Objective - Vital Signs Vital signs: Vital Signs Temp 97.5 F L 04/30/20 04:00 Pulse 70 04/30/20 07:00 Resp 26 H 04/30/20 07:00 BP 114/55 04/28/20 13:06 Pulse Ox 93 L 04/30/20 07:00 Intake & Output 04/29/20 04/30/20 04/30/20 18:59 06:59 18:59 Intake Total 2142.576 2924.482 23 Output Total 70 335 Balance 1053.882 775.482 23 Weight 118 kg Intake: IV 126 256 23 0.9 KVO 220 20 [place] flush 36 36 3 Fluconazole in NaCl,Iso- 50 Osm 100 mg In Saline 1 50ml.bag @ 50 mls/hr IVPB DAILY P[facility]Y Rx#:[id number] Sodium Chloride 0.9% 1, 40 000 ml @ 50 mls/hr IV . Q20H P[facility]Y Rx#:[id number] Intake, IV Titration 616.882 689.482 Amount Diltiazem 125 mg In 125 202.667 Sodium Chloride 0.9% 100 ml @ 10 MG/HR 10 mls/hr IV .[id number] P[facility]Y Rx#: [id number] Piperacillin-Tazobactam 3 100 .375 gm In Sodium Chloride 0.9% 100 ml @ 25 mls/hr IVPB Q12H [facility]Y Rx# :[id number] fentaNYL (PF) 1,000 mcg 96.84 100.000 In Sodium Chloride 0.9% 80 ml @ Per Protocol IV . Q0M P[facility]Y Rx#:[id number] propofoL 1,000 mg In 295.042 386.815 Empty Bag 1 bag @ Titrate IV .Q0M PERRY Rx#: [id number] Tube Feeding 351 135 Other 30 30 Output: Gastric Drainage 230 Urine 70 105 Other: Voiding Method Indwelling Catheter Indwelling Catheter ABP, PAP, CO, CI - Last Documented Arterial Blood Pressure 95/45 - Exam Patient is not personally examined because of covid infection. Information is gathered from nurses and other consultants notes - Labs CBC & Chem 7: 04/30/20 04:10 04/30/20 04:10 Labs: Abnormal Lab Results - Last 24 Hours (Table) 04/29/20 04/29/20 04/29/20 Range/Units 04:15 09:16 09:36 WBC (3.8-10.6) k/uL Neutrophils # (1.3-7.7) k/uL Lymphocytes # (1.0-4.8) k/uL D-Dimer (<0.60) mg/L FEU ABG pH 7.26 L (7.35-7.45) ABG pCO2 51 H (35-45) mmHg ABG pO2 80 L (83-108) mmHg ABG O2 Saturation (94-97) % Sodium (137-145) mmol/L Potassium (3.5-5.1) mmol/L Chloride (98-107) mmol/L Carbon Dioxide (22-30) mmol/L BUN (7-17) mg/dL Creatinine (0.52-1.04) mg/dL Glucose (74-99) mg/dL POC Glucose (mg/dL) 142 H (75-99) mg/dL Calcium (8.4-10.2) mg/dL Ferritin 2063.6 H (10.0-291.0) ng/mL ALT (4-34) U/L Lactate Dehydrogenase (313-618) U/L Creatine Kinase (30-135) U/L C-Reactive Protein (<10.0) mg/L Total Protein (6.3-8.2) g/dL Albumin (3.5-5.0) g/dL 04/29/20 04/29/20 04/29/20 Range/Units 11:58 16:35 19:54 WBC (3.8-10.6) k/uL Neutrophils # (1.3-7.7) k/uL Lymphocytes # (1.0-4.8) k/uL D-Dimer (<0.60) mg/L FEU ABG pH (7.35-7.45) ABG pCO2 (35-45) mmHg ABG pO2 (83-108) mmHg ABG O2 Saturation (94-97) % Sodium (137-145) mmol/L Potassium (3.5-5.1) mmol/L Chloride (98-107) mmol/L Carbon Dioxide (22-30) mmol/L BUN (7-17) mg/dL Creatinine (0.52-1.04) mg/dL Glucose (74-99) mg/dL POC Glucose (mg/dL) 162 H 122 H 132 H (75-99) mg/dL Calcium (8.4-10.2) mg/dL Ferritin (10.0-291.0) ng/mL ALT (4-34) U/L Lactate Dehydrogenase (313-618) U/L Creatine Kinase (30-135) U/L C-Reactive Protein (<10.0) mg/L Total Protein (6.3-8.2) g/dL Albumin (3.5-5.0) g/dL 04/29/20 04/30/20 04/30/20 Range/Units 23:28 04:10 04:10 WBC 27.9 H (3.8-10.6) k/uL Neutrophils # 26.7 H (1.3-7.7) k/uL Lymphocytes # 0.2 L (1.0-4.8) k/uL D-Dimer (<0.60) mg/L FEU ABG pH (7.35-7.45) ABG pCO2 (35-45) mmHg ABG pO2 (83-108) mmHg ABG O2 Saturation (94-97) % Sodium 129 L (137-145) mmol/L Potassium 5.9 H (3.5-5.1) mmol/L Chloride 97 L (98-107) mmol/L Carbon Dioxide 21 L (22-30) mmol/L BUN 103 H* (7-17) mg/dL Creatinine 4.97 H (0.52-1.04) mg/dL Glucose 142 H (74-99) mg/dL POC Glucose (mg/dL) 141 H (75-99) mg/dL Calcium 7.5 L (8.4-10.2) mg/dL Ferritin (10.0-291.0) ng/mL ALT 37 H (4-34) U/L Lactate Dehydrogenase 1233 H (313-618) U/L Creatine Kinase 25 L (30-135) U/L C-Reactive Protein 10.2 H (<10.0) mg/L Total Protein 5.0 L (6.3-8.2) g/dL Albumin 2.3 L (3.5-5.0) g/dL 04/30/20 04/30/2021 Range/Units 04:10 04:11 05:00 WBC (3.8-10.6) k/uL Neutrophils # (1.3-7.7) k/uL Lymphocytes # (1.0-4.8) k/uL D-Dimer 3.04 H (<0.60) mg/L FEU ABG pH 7.13 L* (7.35-7.45) ABG pCO2 65 H (35-45) mmHg ABG pO2 78 L (83-108) mmHg ABG O2 Saturation 93.1 L (94-97) % Sodium (137-145) mmol/L Potassium (3.5-5.1) mmol/L Chloride (98-107) mmol/L Carbon Dioxide (22-30) mmol/L BUN (7-17) mg/dL Creatinine (0.52-1.04) mg/dL Glucose (74-99) mg/dL POC Glucose (mg/dL) 143 H (75-99) mg/dL Calcium (8.4-10.2) mg/dL Ferritin (10.0-291.0) ng/mL ALT (4-34) U/L Lactate Dehydrogenase (313-618) U/L Creatine Kinase (30-135) U/L C-Reactive Protein (<10.0) mg/L Total Protein (6.3-8.2) g/dL Albumin (3.5-5.0) g/dL 04/30/20 Range/Units 07:57 WBC (3.8-10.6) k/uL Neutrophils # (1.3-7.7) k/uL Lymphocytes # (1.0-4.8) k/uL D-Dimer (<0.60) mg/L FEU ABG pH (7.35-7.45) ABG pCO2 (35-45) mmHg ABG pO2 (83-108) mmHg ABG O2 Saturation (94-97) % Sodium (137-145) mmol/L Potassium (3.5-5.1) mmol/L Chloride (98-107) mmol/L Carbon Dioxide (22-30) mmol/L BUN (7-17) mg/dL Creatinine (0.52-1.04) mg/dL Glucose (74-99) mg/dL POC Glucose (mg/dL) 134 H (75-99) mg/dL Calcium (8.4-10.2) mg/dL Ferritin (10.0-291.0) ng/mL ALT (4-34) U/L Lactate Dehydrogenase (313-618) U/L Creatine Kinase (30-135) U/L C-Reactive Protein (<10.0) mg/L Total Protein (6.3-8.2) g/dL Albumin (3.5-5.0) g/dL Assessment and Plan (1) Atrial fibrillation with RVR Current Visit: Yes Status: Acute Code(s): I48.91 - UNSPECIFIED ATRIAL FIBRILLATION SNOMED Code(s): 899970932643824 (2) Pneumonia due to COVID-19 virus Current Visit: Yes Status: Acute Code(s): U07.1 - COVID-19; J12.82 - Pneumonia due to coronavirus disease 2019 SNOMED Code(s): 194323170569561463 (3) Acute renal failure Current Visit: Yes Status: Acute Code(s): N17.9 - ACUTE KIDNEY FAILURE, UNSPECIFIED SNOMED Code(s): 17350239 Plan: Patient was switched from IV amiodarone to by mouth amiodarone. She still on IV Cardizem. Continue current medical therapy. Prognosis is poor
[2020-04-30] MEDS ORDERED: VANCOMYCIN IV PER PHARMACY 1 EACH MISC MISCELLANE PRN (09:31)
[2020-04-30] MEDS: CHOLECALCIFEROL 25 MCG (1000 IU) TABLET PO SCH (09:39)
[2020-04-30] MEDS: ZINC SULFATE 220 MG CAP PO SCH (09:39)
[2020-04-30] MEDS: ENOXAPARIN 30 MG/0.3 ML SYRINGE SQ SCH (09:39)
[2020-04-30] MEDS: FAMOTIDINE 20 MG TAB OG-TUBE SCH (09:39)
[2020-04-30] MEDS: CHLORHEXIDINE GLUCONATE 15 ML CUP MUCOUS MEM SCH ×2 (09:39→20:12)
[2020-04-30] MEDS: AMIODARONE 200 MG TAB PO SCH ×2 (09:40→20:12)
[2020-04-30] MEDS: FLUCONAZOLE IN NACL,ISO-OSM 100 MG in SALINE 1 50ML.BAG IVPB SCH (09:40)
[2020-04-30] MEDS: ASCORBIC ACID 500 MG TAB PO SCH (09:40)
--- NOTE | 2020-04-30 10:51 | P.PN ---
Subjective Patient is seen in follow-up for acute kidney injury. Started on hemodialysis April 26 for oliguria and volume overload. Tube feeds currently held due to coffee-ground emesis. Intubated. On 65% FiO2. On Cardizem drip for A. fib. On oral amiodarone now. Remains oliguric. On 30 mics of Levophed. Intubated. No gross distention noted. Trace edema. Exam discussed with the nurse. Objective - Vital Signs Vital signs: Vital Signs Temp 97.5 F L 04/30/20 04:00 Pulse 70 04/30/20 07:00 Resp 26 H 04/30/20 07:00 BP 114/55 04/28/20 13:06 Pulse Ox 93 L 04/30/20 07:00 Intake & Output 04/29/20 04/30/20 04/30/20 18:59 06:59 18:59 Intake Total 7705.967 6810.482 112.062 Output Total 70 335 Balance 1053.882 775.482 112.062 Weight 118 kg Intake: IV 126 256 23 0.9 KVO 220 20 [place] flush 36 36 3 Fluconazole in NaCl,Iso- 50 Osm 100 mg In Saline 1 50ml.bag @ 50 mls/hr IVPB DAILY [facility] Rx#:[id number] Sodium Chloride 0.9% 1, 40 000 ml @ 50 mls/hr IV . Q20H [facility]Y Rx#:[id number] Intake, IV Titration 616.882 689.482 89.062 Amount Diltiazem 125 mg In 125 202.667 Sodium Chloride 0.9% 100 ml @ 10 MG/HR 10 mls/hr IV .[id number] [facility]Y Rx#: [id number] Piperacillin-Tazobactam 3 100 .375 gm In Sodium Chloride 0.9% 100 ml @ 25 mls/hr IVPB Q12H [facility]Y Rx# :[id number] fentaNYL (PF) 1,000 mcg 96.84 100.000 In Sodium Chloride 0.9% 80 ml @ Per Protocol IV . Q0M [facility]Y Rx#:[id number] propofoL 1,000 mg In 295.042 386.815 89.062 Empty Bag 1 bag @ Titrate IV .Q0M P[facility]Y Rx#: [id number] Tube Feeding 351 135 Other 30 30 Output: Gastric Drainage 230 Urine 70 105 Other: Voiding Method Indwelling Catheter Indwelling Catheter ABP, PAP, CO, CI - Last Documented Arterial Blood Pressure 95/45 - Labs CBC & Chem 7: 04/30/20 04:10 04/30/20 04:10 Labs: Abnormal Lab Results - Last 24 Hours (Table) 04/29/20 04/29/20 04/29/20 Range/Units 11:58 16:35 19:54 WBC (3.8-10.6) k/uL Neutrophils # (1.3-7.7) k/uL Lymphocytes # (1.0-4.8) k/uL D-Dimer (<0.60) mg/L FEU ABG pH (7.35-7.45) ABG pCO2 (35-45) mmHg ABG pO2 (83-108) mmHg ABG O2 Saturation (94-97) % Sodium (137-145) mmol/L Potassium (3.5-5.1) mmol/L Chloride (98-107) mmol/L Carbon Dioxide (22-30) mmol/L BUN (7-17) mg/dL Creatinine (0.52-1.04) mg/dL Glucose (74-99) mg/dL POC Glucose (mg/dL) 162 H 122 H 132 H (75-99) mg/dL Calcium (8.4-10.2) mg/dL ALT (4-34) U/L Lactate Dehydrogenase (313-618) U/L Creatine Kinase (30-135) U/L C-Reactive Protein (<10.0) mg/L Total Protein (6.3-8.2) g/dL Albumin (3.5-5.0) g/dL 04/29/20 04/30/20 04/30/20 Range/Units 23:28 04:10 04:10 WBC 27.9 H (3.8-10.6) k/uL Neutrophils # 26.7 H (1.3-7.7) k/uL Lymphocytes # 0.2 L (1.0-4.8) k/uL D-Dimer (<0.60) mg/L FEU ABG pH (7.35-7.45) ABG pCO2 (35-45) mmHg ABG pO2 (83-108) mmHg ABG O2 Saturation (94-97) % Sodium 129 L (137-145) mmol/L Potassium 5.9 H (3.5-5.1) mmol/L Chloride 97 L (98-107) mmol/L Carbon Dioxide 21 L (22-30) mmol/L BUN 103 H* (7-17) mg/dL Creatinine 4.97 H (0.52-1.04) mg/dL Glucose 142 H (74-99) mg/dL POC Glucose (mg/dL) 141 H (75-99) mg/dL Calcium 7.5 L (8.4-10.2) mg/dL ALT 37 H (4-34) U/L Lactate Dehydrogenase 1233 H (313-618) U/L Creatine Kinase 25 L (30-135) U/L C-Reactive Protein 10.2 H (<10.0) mg/L Total Protein 5.0 L (6.3-8.2) g/dL Albumin 2.3 L (3.5-5.0) g/dL 04/30/20 04/30/20 04/30/20 Range/Units 04:10 04:11 05:00 WBC (3.8-10.6) k/uL Neutrophils # (1.3-7.7) k/uL Lymphocytes # (1.0-4.8) k/uL D-Dimer 3.04 H (<0.60) mg/L FEU ABG pH 7.13 L* (7.35-7.45) ABG pCO2 65 H (35-45) mmHg ABG pO2 78 L (83-108) mmHg ABG O2 Saturation 93.1 L (94-97) % Sodium (137-145) mmol/L Potassium (3.5-5.1) mmol/L Chloride (98-107) mmol/L Carbon Dioxide (22-30) mmol/L BUN (7-17) mg/dL Creatinine (0.52-1.04) mg/dL Glucose (74-99) mg/dL POC Glucose (mg/dL) 143 H (75-99) mg/dL Calcium (8.4-10.2) mg/dL ALT (4-34) U/L Lactate Dehydrogenase (313-618) U/L Creatine Kinase (30-135) U/L C-Reactive Protein (<10.0) mg/L Total Protein (6.3-8.2) g/dL Albumin (3.5-5.0) g/dL 04/30/20 Range/Units 07:57 WBC (3.8-10.6) k/uL Neutrophils # (1.3-7.7) k/uL Lymphocytes # (1.0-4.8) k/uL D-Dimer (<0.60) mg/L FEU ABG pH (7.35-7.45) ABG pCO2 (35-45) mmHg ABG pO2 (83-108) mmHg ABG O2 Saturation (94-97) % Sodium (137-145) mmol/L Potassium (3.5-5.1) mmol/L Chloride (98-107) mmol/L Carbon Dioxide (22-30) mmol/L BUN (7-17) mg/dL Creatinine (0.52-1.04) mg/dL Glucose (74-99) mg/dL POC Glucose (mg/dL) 134 H (75-99) mg/dL Calcium (8.4-10.2) mg/dL ALT (4-34) U/L Lactate Dehydrogenase (313-618) U/L Creatine Kinase (30-135) U/L C-Reactive Protein (<10.0) mg/L Total Protein (6.3-8.2) g/dL Albumin (3.5-5.0) g/dL Assessment and Plan Plan: Assessment: 1. Acute kidney injury secondary to ATN secondary to hypotension, hemodynamic instability and infection. Baseline creatinine near 1 and is 4.97 today. Oliguric diuretic unresponsive- . Started on hemodialysis April 26. 2. Acute hypercapnic/hypoxic respiratory failure. Currently on 65% FiO2. 3. Hyperkalemia secondary to acute kidney injury and metabolic acidosis. 4. COVID-19 infection. 5. A. fib with RVR maintained on Cardizem drip and oral amiodarone. 6. Hyponatremia secondary to acute kidney injury. Plan: Currently seen while undergoing hemodialysis. Plan for another treatment tomorrow. Not able to achieve adequate blood flow with current catheter. Will need to be replaced. Repeat potassium level this evening. Continue to monitor renal function and urine output. Wean FiO2 and vasopressors. Prognosis guarded.
[2020-04-30] MEDS ORDERED: VANCOMYCIN 2,000 MG in SODIUM CHLORIDE 0.9% 500 ML 500 ML IVPB ONE (11:00)
[2020-04-30 11:02] LABS: Ferritin 2348.7 ng/mL (10.0-291.0)
--- NOTE | 2020-04-30 12:55 | P.PN ---
Subjective Progress Note Date: 04/30/20 This 69-year-old white female patient who was admitted to the hospital on 04/11/2020 when she came in for evaluation of 1 week history of cough, fever, shortness of breath, decreased appetite and intermittent episodes of diarrhea. Patient was diagnosed with COVID 19 pneumonia, this was done via outpatient testing through the health Department. Patient initially presented at [facility], she was hypoxemic with a pulse ox in the 80s and she was placed on high flow oxygen and transferred to the [facility]. CT angiogram of the chest showed no evidence of pulmonary embolism, however it showed evidence of bilateral interstitial infiltrates consistent with COVID 19 pneumonitis. Patient completed her Remdesivir treatment on 04/16/2020, she received 2 units of convalescent plasma, she remains on IV steroids with IV Solu-Medrol. In view of her worsening hypoxemia patient was transferred to the intensive care unit, she is intubated on 04/24/2020 The patient is seen today 04/26/2020 and follow-up in the intensive care unit. She remains intubated on the mechanical ventilator. She was intubated on 04/24/2020 . Current settings are assist-control of 40, tidal volume 400, FiO2 60% and a PEEP of 15. Blood gases that a pH of 7.36 with a pCO2 of 50 and pO2 of 67. Chest x-ray from today is showing bilateral pulmonary infiltrates, interstitial and diffuse. ET tube is in a good location. I do not see any major interval change in her chest x-ray findings or the past 48 hours. She remains on 0.9 normal saline at 50 MLS per hour. Propofol at 50 mcg/kg/m. Nimb ex at 1.0 L micrograms per kilogram per minute. She is on amiodarone at 0.5 mg/m for AFIB/SVT. Her rate is better controlled today. She has a normal sinus rhythm for now and she is on po amiodarone. Chest x-ray with similar findings of bilateral groundglass opacity, air space disease which is stable compared to previous. She has received 2 units of convalescent plasma. She completed Remdesivir. Blood cultures reveal no growth. Urine culture revealed no growth. She was given IV Zosyn empirically. Remains on Solu-Medrol 60 mg every 6.Of significance is also development of an acute kidney injury. The patient's urine output is less than 5 mL an hour. Creatinine came up from a baseline of 0 point up to 1.34 and later on to 2.8. Nephrology is on the case. Ultrasound the kidneys was negative. Dialysis cath will be inserted today. Today's evaluation of 04/27/2020, I am seeing the patient for a follow-up. As mentioned earlier, this is a case of coronary via/fluid 19 related pneu monia/ARDS and the patient remains intubated on a mechanical ventilator. This morning, she is assist-control mode at the rate of 32 with a tidal volume of 100 and FiO2 of 60% with a PEEP of 15. The blood gases from today shows a pH of 7.21 with a pCO2 of 64 and pO2 of 70. The patient is very much success with the mechanical ventilator. The patient is still on propofol running at 40 mcg/kg per minute. She is also on Nimbex and she is paralyzed in the maxillary running at 1 mcg/kg per minute. I think it's time to give the patient a paralytic holiday today. Her peak airway pressure on a mechanical ventilator is in order of 33 with a static pressure of around 30. The chest x-ray from today is showing a bilateral pulmonary infiltrates which is more so in the lower lobes bilaterally. No major interval change compared to yesterday. ET tube is in a good location. NG tube was also within the stomach and is also in a good location. IV fluids are running in the form of 0.9 at the rate of 50 mL an hour. The neck fluid balance over the past 24 hours is +1.9 L and 4.1 L earlier than 3.0 L earlier. As such the patient has been a significant positive fluid balance pH is undergoing hemodialysis in the last bout of hemodialysis was yesterday. A total of 1 L of fluid was removed. I think ultrafiltration is to be somewhat aggressively. The white cell count is at 30 the creatinine today is at 3.37 with a BUN of 71. The patient also has a white cell count of 30. Hemoglobin is at 14.7. Enteral feeding for nutritional support is running and the patient is on Nepro. Inflammatory markers today showed a CRP of 40 which is lower compared to yesterday. LDH is still pending. Last LDH level was elevated at 2444 and a progressive on 11 was 0.39 which is essentially low knowing that the patient has an underlying acute kidney injury. The patient's cardiac rhythm is A. fib and the rate is ranging between 100 and 120. The patient is currently on amiodarone at 1 mg/m 04/28/2020, the patient remains intubated on a mechanical ventilator. The patient has a Covid 19 related pneumonia/ARDS. On today's evaluation, the patient is on propofol running at 50 mcg/kg per minute. The patient seems to be off the paralytics since yesterday. On today's evaluation, she was breathing quite rapidly and she was tachypneic and the pulses was in the mid 80s. Earlier this morning showed an assist-control mode of mechanical ventilation at the rate of 32 with a tidal volume of 400 and FiO2 of 65% with a PEEP of 15. The blood gases from today showed a pH of 7.31 with a pCO2 of 50 and pO2 of 61. Chest x- ray shows limited infiltration of the lung bases bilaterally. The white cell co unt was at 33.5. Hemoglobin is 13.4. The d-dimer is at 3.82. The LDH level is down to 1581. The CRP level is down to 21.9. The patient is not making any urine. Urine output is minimal at one time. BUN is at 63 with a creatinine of 3.8 and the rest of the electrolytes are all within normal limits. The patient is receiving her first session of hemodialysis today. Meanwhile, the patient remains on a A. fib rhythm and the patient is on amiodarone at 1 mg per minute and the patient is also on Cardizem running at 15mg an hour. She is less tachycardic while on treatment. Also, the patient is feeding for nutritional support and the patient is on vital high protein running at the rate of 27 mL an hour. The patient remains on Solu-Medrol at a dose of 60 mg every 6 hours, we were considering Actemra , and based on our discussion with the pharmacy, and based on the availability of the medication and its limited criteria for use, we were not able to deliver the medication to this patient. On 04/29/2020, the patient remains intubated on a mechanical ventilator. I have elected discussion with the nephew who is a retired physician. He expressed wishes to transfer for at least consider other interventions such as ECMO on this patient. I personally think that she is not a candidate for this type of treatment. I contacted the [facility] team and the chamber was declined. The nephew was informed to. Meanwhile, I continue to support this patient. Intensive care unit. The patient remains in acute hypoxic respiratory failure secondary to Covid 19 related pneumonia/ARDS. She remains sedated with propofol running at the micrograms and I'm in the process of weaning the propofol to a lesser degree of sedation. At the same time, the patient is on fentanyl running at 50 mcg/h. The patient remains on a tidal volume of 400 with an FiO2 of 70% with a PEEP of 5 and the respiratory of 26. The morning blood gases showed a pH of 7.24 with a pCO2 of 56 and pO2 of 75. Chest x-ray showing diffuse bilateral pulmonary infiltrates, probably slightly worse compared to yesterday. She remains on IV Solu-Medrol. Markers from today shows a LDH level of 1281, her CRP level is down to 17.8. The pro calcitonin level was at 0.39. Hemodynamically, the patient is still on a combination of Cardizem and amiodarone drip. Cardizem is running at 50 mg an hour and amiodarone drip is at 0.5 mg per minute and her heart is on a under much better control for now. Amiodarone can be switched to oral. The patient is also on IV fluids at 20 mL an hour. Her last bout of hemodialysis was yesterday with ultrafiltration of 1 L. I think she'll be given a break of dialysis. Her urine output is 5 ML's over the past 4 hours. Bryan cath is in place. She is afebrile. Enteral f eeding for nutritional support in the form of vital high protein at the rate of 27 mL an hour. She is tolerating his tube feeds. He is having some liquidy bowel movements. Stool for C. diff was negative. No abdominal distention. No other significant events overnight otherwise. 04/30/2020, the patient is still doing the same while intubated on a mechanical ventilator. In fact this morning, the patient had issues with hypotension. Pressors were started and during dialysis the patient became further hypotensive and the levo fed was increased up to 0.3 mcg/kg per minute. In summary, the p ben's condition today is quite critical. The patient is sedated with propofol at a rate of 75 mcg/kg per minute and fentanyl with 1 mcg/kg/h. The patient is well sedated. She is up paralytics patient had an assist-control mode of ventilation at the rate of 26 with a tidal volume of 400 and FiO2 of 65% with a PEEP of 15. Her peak airway pressure is around 34 with a static pressure of around 31. The morning blood gases showed a pH of 7.13 with a pCO2 of 65 and pO2 of 78. The patient has stable chest x-ray with diffuse bilateral pulmonary infiltrates unchanged compared to yesterday. She remains in atrial fibrillation. Amiodarone drip was discontinued and the patient was placed on Klonopin milligrams amiodarone orally twice a day. She is also on Cardizem drip which is running at 5 mg an hour. The patient is on normal saline at rate of 20 mL an hour. She was supposed to get dialysis with ultrafiltration. The ultrafiltration was aborted as the patient became quite hypotensive and her pressor requirements went up. She remains on IV Solu Medrol 60 mg every 6 hours. She remains on aggressive the vitamin supplements regarding the Covid 19 related pneumonia. Her last echo was at 27.9. Hemoglobin was at 12.7. D-dimer is at 3.04, the LDH level was 1233 and the CRP level is down to 10.2. LEVEL IS AT 0.39 FROM FEW DAYS AGO AND THIS WILL BE REPEATED. . She is afebrile. She remains on the same antibiotic coverage. The patient is on a combination of Zosyn and Diflucan. She also has a PICC line in left upper extremity. Lovenox is running at 30 mg subcu every 24 hours. She is tolerating her enteral feeding for nutritional support. She is receiving vital high protein. She is tolerating her few feeds. Stool for C. diff has been negative as the patient was having some liquidy stool. No abdominal distention. Objective - Vital Signs Vital signs: Vital Signs Temp 96.3 F L 04/30/20 08:00 Pulse 114 H 04/30/20 11:00 Resp 34 H 04/30/20 11:00 BP 0/0 04/30/20 11:00 Pulse Ox 89 L 04/30/20 11:00 Intake & Output 04/29/20 04/30/20 04/30/20 18:59 06:59 18:59 Intake Total 7365.852 9521.482 1057.062 Output Total 70 335 10 Balance 1053.882 689.941 0578.062 Weight 118 kg Intake: IV 126 256 635 0.9 KVO 220 70 Diana flush 36 36 15 Fluconazole in NaCl,Iso- 50 50 Osm 100 mg In Saline 1 50ml.bag @ 50 mls/hr IVPB DAILY [facility] Rx#:[id number] Sodium Chloride 0.9% 1, 40 000 ml @ 50 mls/hr IV . Q20H [facility] Rx#:[id number] Vancomycin 2,000 mg In 500 Sodium Chloride 0.9% 500 ml 500 ml @ 167 mls/hr IVPB ONCE ONE Rx#: [id number] Intake, IV Titration 616.882 689.482 422.062 Amount Diltiazem 125 mg In 125 202.667 75.000 Sodium Chloride 0.9% 100 ml @ 10 MG/HR 10 mls/hr IV .[id number] [facility] Rx#: [id number] Norepinephrine 8 mg In 258.000 Sodium Chloride 0.9% 250 ml @ 0.05 MCG/KG/MIN 11. 417 mls/hr IV .[id number] [facility] Rx#:[id number] Piperacillin-Tazobactam 3 100 .375 gm In Sodium Chloride 0.9% 100 ml @ 25 mls/hr IVPB Q12H [facility] Rx# :[id number] fentaNYL (PF) 1,000 mcg 96.84 100.000 In Sodium Chloride 0.9% 80 ml @ Per Protocol IV . Q0M [facility] Rx#:[id number] propofoL 1,000 mg In 295.042 386.815 89.062 Empty Bag 1 bag @ Titrate IV .Q0M [facility] Rx#: [id number] Tube Feeding 351 135 Other 30 30 Output: Gastric Drainage 230 Urine 70 105 10 Other: Voiding Method Indwelling Catheter Indwelling Catheter ABP, PAP, CO, CI - Last Documented Arterial Blood Pressure 114/58 - Exam GENERAL EXAM: Intubated, sedated 69-year-old female patient, critically ill. Intubated on a mechanical ventilator and the patient is sedated and she is off paralytics for now, and the patient is currently on a combination of fentanyl and propofol for sedation. She is quite suggest the mechanical ventilator. HEAD: Normocephalic. EYES: Sluggish reaction of pupils, equal size. NOSE: Clear with pink turbinates. THROAT: Oral endotracheal and gastric tube secured in place. No erythema or exudates. NECK: No masses, no JVD. Orogastric and endotracheal tube are both in place. CHEST: No chest wall deformity. LUNGS: Equal air entry with crackles in the bilateral posterior bases. CVS: S1 and S2 normal with no audible murmur, irregular rhythm. The patient continues to be in atrial fibrillation. The rate is under much better control for now ABDOMEN: No hepatosplenomegaly, normal bowel sounds, no guarding or rigidity. SPINE: No scoliosis or deformity SKIN: No rashes CENTRAL NERVOUS SYSTEM: Sedated, tone is normal in all 4 extremities. Pupils are equal and reactive to light. No facial asymmetry. I think she is riding the mechanical ventilator and she is deeply sedated. We'll gradually wean off the propofol. EXTREMITIES: There is +1 peripheral edema in all 4 extremities. No clubbing, no cyanosis. Peripheral pulses are intact. The patient has a PICC line in left upper extremity. The patient also has a right femoral dialysis catheter in place. He is a temporary dialysis catheter. - Labs CBC & Chem 7: 04/30/20 04:10 04/30/20 04:10 Labs: Abnormal Lab Results - Last 24 Hours (Table) 04/29/20 04/29/20 04/29/20 Range/Units 16:35 19:54 23:28 WBC (3.8-10.6) k/uL Neutrophils # (1.3-7.7) k/uL Lymphocytes # (1.0-4.8) k/uL D-Dimer (<0.60) mg/L FEU ABG pH (7.35-7.45) ABG pCO2 (35-45) mmHg ABG pO2 (83-108) mmHg ABG O2 Saturation (94-97) % Sodium (137-145) mmol/L Potassium (3.5-5.1) mmol/L Chloride (98-107) mmol/L Carbon Dioxide (22-30) mmol/L BUN (7-17) mg/dL Creatinine (0.52-1.04) mg/dL Glucose (74-99) mg/dL POC Glucose (mg/dL) 122 H 132 H 141 H (75-99) mg/dL Calcium (8.4-10.2) mg/dL Ferritin (10.0-291.0) ng/mL ALT (4-34) U/L Lactate Dehydrogenase (313-618) U/L Creatine Kinase (30-135) U/L C-Reactive Protein (<10.0) mg/L Total Protein (6.3-8.2) g/dL Albumin (3.5-5.0) g/dL Procalcitonin (0.02-0.09) ng/mL 04/30/20 04/30/20 04/30/20 Range/Units 04:10 04:10 04:10 WBC 27.9 H (3.8-10.6) k/uL Neutrophils # 26.7 H (1.3-7.7) k/uL Lymphocytes # 0.2 L (1.0-4.8) k/uL D-Dimer (<0.60) mg/L FEU ABG pH (7.35-7.45) ABG pCO2 (35-45) mmHg ABG pO2 (83-108) mmHg ABG O2 Saturation (94-97) % Sodium 129 L (137-145) mmol/L Potassium 5.9 H (3.5-5.1) mmol/L Chloride 97 L (98-107) mmol/L Carbon Dioxide 21 L (22-30) mmol/L BUN 103 H* (7-17) mg/dL Creatinine 4.97 H (0.52-1.04) mg/dL Glucose 142 H (74-99) mg/dL POC Glucose (mg/dL) (75-99) mg/dL Calcium 7.5 L (8.4-10.2) mg/dL Ferritin 2348.7 H (10.0-291.0) ng/mL ALT 37 H (4-34) U/L Lactate Dehydrogenase 1233 H (313-618) U/L Creatine Kinase 25 L (30-135) U/L C-Reactive Protein 10.2 H (<10.0) mg/L Total Protein 5.0 L (6.3-8.2) g/dL Albumin 2.3 L (3.5-5.0) g/dL Procalcitonin 0.31 H (0.02-0.09) ng/mL 04/30/20 04/30/20 04/30/20 Range/Units 04:10 04:11 05:00 WBC (3.8-10.6) k/uL Neutrophils # (1.3-7.7) k/uL Lymphocytes # (1.0-4.8) k/uL D-Dimer 3.04 H (<0.60) mg/L FEU ABG pH 7.13 L* (7.35-7.45) ABG pCO2 65 H (35-45) mmHg ABG pO2 78 L (83-108) mmHg ABG O2 Saturation 93.1 L (94-97) % Sodium (137-145) mmol/L Potassium (3.5-5.1) mmol/L Chloride (98-107) mmol/L Carbon Dioxide (22-30) mmol/L BUN (7-17) mg/dL Creatinine (0.52-1.04) mg/dL Glucose (74-99) mg/dL POC Glucose (mg/dL) 143 H (75-99) mg/dL Calcium (8.4-10.2) mg/dL Ferritin (10.0-291.0) ng/mL ALT (4-34) U/L Lactate Dehydrogenase (313-618) U/L Creatine Kinase (30-135) U/L C-Reactive Protein (<10.0) mg/L Total Protein (6.3-8.2) g/dL Albumin (3.5-5.0) g/dL Procalcitonin (0.02-0.09) ng/mL 04/30/20 Range/Units 07:57 WBC (3.8-10.6) k/uL Neutrophils # (1.3-7.7) k/uL Lymphocytes # (1.0-4.8) k/uL D-Dimer (<0.60) mg/L FEU ABG pH (7.35-7.45) ABG pCO2 (35-45) mmHg ABG pO2 (83-108) mmHg ABG O2 Saturation (94-97) % Sodium (137-145) mmol/L Potassium (3.5-5.1) mmol/L Chloride (98-107) mmol/L Carbon Dioxide (22-30) mmol/L BUN (7-17) mg/dL Creatinine (0.52-1.04) mg/dL Glucose (74-99) mg/dL POC Glucose (mg/dL) 134 H (75-99) mg/dL Calcium (8.4-10.2) mg/dL Ferritin (10.0-291.0) ng/mL ALT (4-34) U/L Lactate Dehydrogenase (313-618) U/L Creatine Kinase (30-135) U/L C-Reactive Protein (<10.0) mg/L Total Protein (6.3-8.2) g/dL Albumin (3.5-5.0) g/dL Procalcitonin (0.02-0.09) ng/mL Assessment and Plan Plan: 1 Acute hypoxemic respiratory failure secondary to acute COVID 19 pneumonia/pneumonitis, failed previous oxygenation treatments and required intubation and mechanical ventilatory support 04/24/2020. The patient completed a course of Remdesivir on the 04/16/2020, received 2 units of convalescent plasma patient remains on IV steroids and anticoagulation the form of Lovenox. The patient remains sadated and off paralysis and the patient is is on IV solumedrol and empiric antibiotic coverage with IV Zosyn and Diflucan. The patient is on low tidal volume ventilation with tidal volume of 400 the rate of 26 , PEEP 15 with an FiO2 of 60%. Chest x-ray remains unchanged. It is consistent with post Covid pneumonia/ARDS. Blood gases consistent with permissive hypercapnia. The patient remains intubated on a mechanical ventilator. Off paralytics. Still on a combination of propofol and fentanyl drip for sedation secondary with mechanical ventilator. 2 A. fib RVR, currently off miodarone drip and the patient is also on a Cardizem drip for rate control at the rate of 5 mg an hour 3 Possible urinary tract infection related to yeast, current empiric antibiotic coverage includes Zosyn and Diflucan was added 04/23/2020 4 acute kidney injury, probably related to Covid 19 infection, and the patient is currently dialysis dependent 5 hypotension requiring pressors. Consider underlying sepsis/infection contributing to his hypotension and the patient is currently on levo fed and pressor doses went up as the patient was being dialyzed. The goal for now is dialysis without ultrafiltration. 6 Elevated d-dimer, without evidence of pulmonary embolism. Remains on Lovenox 30 mg sub daily and this was adjusted based on his underlying acute kidney injury in renal failure. D-dimer is being monitored. The latest level of d- dimer was added 3.04 7 Leukocytosis, possibly related to IV steroids, rule out possibility of a bacterial superinfection of pro-calcitonin is low and the patient has been on IV Zosyn since 2020.The pro-calcitonin level currently is at 0.39 and a white cell count is down to 27 8 Elevated liver enzymes likely related to viral pneumonia, recovered 9 Elevated inflammatory markers related to acute COVID 19 pneumonia, And the levels remain quite elevated and repeat levels will be obtained. The LDH and CRP compared to yesterday he slightly improved yet still elevated. 10 obesity Plan: Continuepropofol and fentanyl for sedation and wean off the propofol continue low tidal volume ventilation with an assist-control mode, volume cycle with a rate of 26 tidal volume of 400, I time of 0.9, FiO2 of 70% with a PEEP of 15 Amiodarone and Cardizem drip for rate control and discontinued amiodarone IV and switch her to 200 mg of amiodarone by mouth twice a day Remains on IV Solu-Medrol, Lovenox, Zosyn, and the dose of Lovenox has been adjusted to a account for the acute kidney injury patient is currently receiving 30 mg subcu on a daily basis The patient is a hemodialysis yesterday with ultrafiltration of 1.0 L. no dialysis for today feeding for nutritional support, currently on vital high protein Recheck pro-calcitonin level Recheck blood cultures 2 Given a dose of vancomycin Stop the Diflucan Stop the Cardizem drip and continue with oral amiodarone Proceed with a hemodialysis Prognosis is poor Family is updated We will continue to follow and make further recommendations based on her clinical status Critical care time >30 minutes Time with Patient: Greater than 30 Time with Patient: Greater than 30
[2020-04-30] MEDS: PIPERACILLIN-TAZOBACTAM 3.375 GM in SODIUM CHLORIDE 0.9% 100 ML IVPB SCH ×2 (13:04→23:51)
[2020-04-30] MEDS: MULTIVITAMINS, THERA 1 EACH TAB PO SCH (13:05)
[2020-04-30] MEDS: THIAMINE 100 MG TAB PO SCH (13:05)
[2020-04-30 13:22] LABS: Glucose,Whole Blood 123 mg/dL (75-99)
[2020-04-30] MEDS: FOLIC ACID 1 MG TAB PO SCH (13:38)
--- NOTE | 2020-04-30 14:49 | P.PN ---
Subjective Progress Note Date: 04/30/20 Ms. Mccoy is a 69-year-old female with a past medical history of hypertension and thyroid disorder admitted to the hospital for acute hypoxic respiratory failure secondary to COVID 19 pneumonia. Patient has extensive bilateral interstitial pneumonia. She is on a low and pulmonary Dr. Mathews is following the patient. Patient received a convalescent plasma, is also on Remdesivir. On 04/17/2020- This morning patient was evaluated in the ICU. Patient is comfortably sitting in a chair states that her breathing is improving gradually. She denies having any chest pain or palpitations. No cough or hemoptysis. She denies having any swelling or for lower extremities. No abdominal pain nausea vomiting or diarrhea. She denies having any dysuria or hematuria, she has a Bryan's catheter in place. On reviewing her vitals temperature 98.1 heart rate 75 is 5817, blood pressure 1:30 bradycardia. Saturating at 96% on a Aervo -60%. On 04/18/2020 - patient was seen and examined in the ICU. Patient is sitting in a chair by the bedside, states that her breathing has worsened compared to yesterday. Patient is on high flow Airvo, saturating in the low 90s. She denies having any chest pain or palpitations. She complains of cough that is nonproductive. Patient had a chest x-ray done showing stable bilateral air space disease. As the patient was having few episodes of tachycardia, she was started on Lopressor this morning. Patient's inflammatory markers are noted to be high. On reviewing her vitals saturating at 90% on high flow Airvo, heart rate 70s to 80s, respiratory rate 20-25, blood pressure 106-67. In reviewing her labs white count of 29.3, hemoglobin 16.8, platelets 369. D-dimer 6.99, LDH 2969, CRP 63.9. On 04/19/2020 - patient is seen and examined in the ICU. She is currently on BiPAP, as her respiratory status has worsened compared to yesterday. Patient denies having any chest pain or palpitations. No abdominal pain nausea vomiting or diarrhea. No dysuria or hematuria. She is on BiPAP 14/6 and 100% FiO2. On reviewing her vitals temperature is 99.2, respiratory rate is 25, heart rate 70, blood pressure 10 9 x 71. Reviewing the labs white count of 27.3, hemoglobin 17.4, platelets 314. Sodium 133, potassium 4.4, chloride 90, bicarbonate 35, BUN 31, creatinine 0.72. Ferritin 3195, CRP 217 and LDH 2747. 04/20/2020 This is a pleasant 69 years old female with multiple medical problems was admitted for bilateral Covid pneumonia, she is currently on aervo at 90%/60 L of oxygen, saturating 89%. Rest of Vitas looks stable Also she is on BiPAP All the night. She is able to eat and drink, no pressors She is on normal saline at 75 mL/h with adequate urine output Patient is currently ON Medrol 40 mg twice daily, Lovenox 60 mg twice Mary and vitamin C and zinc. She finished her remdisvir and convelecent plasma. 04/21/2020 Patient remains in the ICU bed and respiratory support for her bilateral Covid pneumonia. She still dyspneic especially with exertion and she still needs BiPAP during the day shift. Also she had a fever today of 102.2. Patient is empirically on Zosyn/calcitonin check today showing normal level at 0.07. She has leukocytosis of 29K. I agree with Zosyn and I recommended to continue with that for now. Also patient is on steroids 60 mg every 6 hours. As there is no more significant progress progress in her clinical picture Glucose is 123 and inflammatory markers still elevated 04/22/2020 this is a pleasant 69 yo F who is admitted to the ICU for covid pneumonia, she is still on BiPAP dependant , TNP is started for her nutrition for this reasone. her oxygen saturation is on low 90s% cxr: diffuse interstitial opacities and worsening airspace disease in the left lower lung. consider interstitial edema wbc is sligtly less 26K, she is currently continued on zosyn , and solumedrol 60 mg. and normal saline increased to 150 ml/hr. and lovenox 60 mg BID she finised her Remdisvir and convelescent Plasma. 04/23/2020 Patient looks very tired, she came Off the BiPAP today morning and she was placed back on airvo at 60 L she is back and forth between BiPAP and airvo, however she probably will need BiPAP at night Inflammatory markers and d-dimer increased, ferritin 3100 up to 3700 and d-dimer 3 up to 5 Chest x-ray showing bilateral middle and lower infiltrates with slight improvement Treatments with antibiotics Zosyn, fluconazole was added today. Also she is also on Solu-Medrol 60 mg, normal sling was decreased to 50 mL per hour, Lovenox 60 mg twice daily, TPN and she is on vitamin C and zinc 04/24/2020 Patient today her clinical condition deteriorated, she was hypoxic this morning with oxygen saturation in the 70s percent and she was tachycardic with heart rate 140-150, patient ended up being intubated in the morning and she was in an you onset of A. fib and started on Cardizem drip on 15 mg however her heart rate was still elevated, cardiology team were consulted, blood pressure was on the low normal side. Amiodarone drip was started. Cardiology team and Cardizem drip was shut to 15 mg/h. Also insulin drip for hyperglycemia with sugar more than 300. 04/25/2020 Patient was intubated yesterday for deteriorated respiratory status, ABG showing elevated pCO2 on 496 with acidosis. 7.0 and 7.1. Oxygen saturation is acceptable at 107. She remains on mechanical ventilation managed by pulmonary/critical care team, currently her bruits and draped with before meals at 40 to help with her acidosis. Her creatinine worsened today 0.5 up to 1.3, with potassium elevated as well as 5.5 nephrology team were consulted who ordered insulin/dextrose 50%, sodium bicarb 1 and Lasix 80 mg 1. Assembly Lead Person recommended hemodialysis and no improvement in 24 hours Chest x-ray showing pneumonia and edema which is stable from yesterday. Sugar improved and we could switch her insulin drip to insulin sliding scale A. fib is improved and converted to sinus rhythm with amiodarone which is swi tched to [employer] per Linux Kernel Developer, She Is Already on Anticoagulation 04/26/20 Patient remains in the ICU sedated and intubated with pulmonary/ critical care team following the case closely. Showing trending down leukocytosis to 20 6.1K. Creatinine up to 2.8, Patient is developing anuria with acute kidney injury, nephrology evaluation is appreciated and hemodialysis is initiated. Chest x-ray showing interstitial infiltrate especially in the mid to lower lungs Echocardiogram showed ejection fraction of 55-60%, and atrial fibrillation improved yesterday with amiodarone She remains on Solu-Medrol, Zosyn and fluconazole, normal sinus 50 and vitamin C and zinc Lovenox dose was adjusted to renal function down to 50 mg daily Prognosis remains guarded 04/27/2020 Patient with bilateral: With pneumonia that her purse and eventually got intubated, pulmonary/critical care team and several consultants are following the case, vent management as per pulmonary team. She has leukocytosis of 13.8 K. Creatinine today is 3.37 Patient undergoing hemodialysis for the last 2-3 days for acute kidney injury and [facility] Patient A. fib heart rate becomes uncontrolled today and her amiodarone to switch to a drip. Other medication including Solu-Medrol 60 mg, vitamin C and zinc, Zosyn and fluconazole, she is on normal saline at 50 mL/h and Lovenox dose dropped to 30 mg daily 04/28/2020 Patient remains intubated and sedated in the ICU, followed closely by critical care team. Vital showing tachycardia and tachypnea. WBC is 30 3.5K. Creatinine 3.8, sodium 134. Sugar is controlled. Inflammatory markers are elevated. She is undergoing hemodialysis today Chest x-ray from today showing no change from last one yesterday Medication-hernandez he remains on Solu-Medrol, Zosyn, 30 mg of Lovenox daily which is renal dose and amiodarone drip. Normal saline at 50 mm was discontinued today 04/29/2020 This is a pleasant 69 years old female with bilateral, with pneumonia. Patient remains in the ICU sedated and intubated with pulmonary/critical care team following the case closely. Normal sedation holiday for the patient currently She already finished her treatment with remdesivir and convalescent plasma, and currently she is on vitamin C and zinc. She was on steroids in the form of high dose of Solu-Medrol 60 mg and Zosyn and fluconazole for possible bacteria and fungal infection associated with viral infection. Patient course was complicated by renal failure and new or so she underwent hemodialysis, last HD was yesterday, she is kept on renal dose of Lovenox 30 mg daily. Other compli cation is atrial fibrillation with RVR which is currently controlled with oral amiodarone and low-dose of Cardizem drip. Patient condition remains critical and she kept on mechanical ventilation with close monitoring Procalcitonin is unchanged yesterday at 0.39 compared to one week ago at 0.39. We'll order another test tomorrow 04/30/2020 Patient is seen and evaluated and follow-up continues to remain closely monitored in the ICU. Patient continues to be on a mechanical ventilator intubated and sedated currently off paralytics. Patient being followed by multiple medical consultations including cardiology, pulmonary, nephrology. Patient currently receiving hemodialysis for ultrafiltration and became extremely hypotensive maxing out on pressors and dialysis was aborted. Patient prognosis is extremely guarded and poor at this time. Patient continues to be on IV steroids along with Lovenox vitamin C and D and zinc supplements and will continue. Patient is also maintained on IV antibiotics in the form of Zosyn and vancomycin being added. Patient currently off of IV amiodarone and IV Cardizem and transitioned to oral amiodarone and will continue at this time. Chest x-ray continues to show interstitial pneumonia with bilateral basilar infiltrates and tiny effusions. She also had an abdominal x-ray showing nonspecific abdomen with no diagnostic evidence of obstruction. White blood count today is 27.9, hemoglobin is stable at 12.7, d-dimer is elevated although slowly trending down at 3.04, current sodium is 129, potassium is 5.9, BUN is 103 with a creatinine of 4.97. Attempts at ultrafiltration today his potassium is elevated. Nephrology is following closely. Review of systems: Unable to obtain as patient's currently intubated and sedated Active Medications Acetaminophen (Acetaminophen Tab 325 Mg Tab) 650 mg PO Q6HR PRN PRN Reason: Mild Pain or Fever > 100.5 Last Admin: 04/21/20 04:34 Dose: 650 mg Documented by: Albuterol Sulfate (Albuterol Hfa Inhaler) 2 puff INHALATION RT-QID [facility] Last Admin: 04/30/20 11:41 Dose: 2 puff Documented by: Amiodarone HCl (Amiodarone 200 Mg Tab) 200 mg PO BID [facility] Last Admin: 04/30/20 09:40 Dose: 200 mg Documented by: Ascorbic Acid (Ascorbic Acid 500 Mg Tab) 250 mg PO DAILY [facility] Last Admin: 04/30/20 09:40 Dose: 250 mg Documented by: Chlorhexidine Gluconate (Chlorhexidine Gluconate 15 Ml Cup) 15 ml MUCOUS MEM BID [facility] Last Admin: 04/30/20 09:39 Dose: 15 ml Documented by: Cholecalciferol (Cholecalciferol 25 Mcg (1000 Iu) Tablet) 25 mcg PO DAILY [facility] Last Admin: 04/30/20 09:39 Dose: 25 mcg Documented by: Enoxaparin Sodium (Enoxaparin 30 Mg/0.3 Ml Syringe) 30 mg SQ DAILY [facility] Last Admin: 04/30/20 09:39 Dose: 30 mg Documented by: Famotidine (Famotidine 20 Mg Tab) 20 mg OG-TUBE Q24HR [facility] Last Admin: 04/30/20 09:39 Dose: 20 mg Documented by: Folic Acid (Folic Acid 1 Mg Tab) 1 mg PO DAILY@1200 [facility] Last Admin: 04/30/20 13:38 Dose: 1 mg Documented by: Propofol 1,000 mg/ IV Solution 100 mls @ 0 mls/hr IV .Q0M [facility]; Protocol Last Titration: 04/30/20 13:37 Dose: 30 mcg/kg/min, 21.24 mls/hr Documented by: Piperacillin Sod/Tazobactam (Sod 3.375 gm/ Sodium Chloride) 100 mls @ 25 mls/hr IVPB Q12H [facility] Last Admin: 04/30/20 13:04 Dose: 25 mls/hr Documented by: Fentanyl Citrate 1,000 mcg/ (Sodium Chloride) 100 mls @ 0 mls/hr IV .Q0M [facility]; Protocol Last Admin: 04/30/20 13:05 Dose: 1 mcg/kg/hr, 11.54 mls/hr Documented by: Norepinephrine Bitartrate 8 mg (/ Sodium Chloride) 258 mls @ 11.417 mls/hr IV .[id number] [facility]; Protocol Last Titration: 04/30/20 13:12 Dose: 0.05 mcg/kg/min, 11.417 mls/hr Documented by: Vancomycin HCl 2,000 mg/ (Sodium Chloride) 500 mls @ 167 mls/hr IVPB ONCE ONE Stop: 05/01/20 10:59 Diltiazem HCl 125 mg/ Sodium (Chloride) 125 mls @ 0 mls/hr IV .Q0M [facility]; Protocol Last Admin: 04/30/20 12:13 Dose: 10 ml/hr, 10 mls/hr Documented by: Insulin Aspart (Insulin Aspart (Novolog) 100 Unit/Ml Vial) 0 unit SQ Q4H [facility]; Protocol Last Admin: 04/30/20 13:38 Dose: Not Given Documented by: Levothyroxine Sodium (Levothyroxine 50 Mcg Tab) 50 mcg PO DAILY@0630 [facility] Last Admin: 04/30/20 05:20 Dose: 50 mcg Documented by: Methylprednisolone Sodium Succinate (Methylprednisolone Sod Succi 125 Mg/2 Ml Vial) 60 mg IV Q6HR [facility] Last Admin: 04/30/20 13:04 Dose: 60 mg Documented by: Miscellaneous Information (Potassium Replacement Protocol 1 Each [facility]) 1 each MISCELLANE DAILY PRN; Protocol PRN Reason: Per Protocol Miscellaneous Information (Vancomycin Iv Per Pharmacy 1 Each [facility]) 1 each MISCELLANE DIRECTED PRN; Protocol PRN Reason: Per Protocol Morphine Sulfate (Morphine Sulfate 2 Mg/Ml Syringe) 2 mg IVP Q6H PRN PRN Reason: Pain/Discomfort Last Admin: 04/26/20 16:07 Dose: 2 mg Documented by: Multivitamins (Multivitamins, Thera 1 Each Tab) 1 each PO DAILY@1200 [facility] Last Admin: 04/30/20 13:05 Dose: 1 each Documented by: Naloxone HCl (Naloxone 0.4 Mg/Ml 1 Ml Vial) 0.2 mg IV Q2M PRN PRN Reason: Opioid Reversal Ondansetron HCl (Ondansetron 4 Mg/2 Ml Vial) 4 mg IVP Q6HR PRN PRN Reason: Nausea And Vomiting Thiamine HCl (Thiamine 100 Mg Tab) 100 mg PO DAILY@1200 [facility] Last Admin: 04/30/20 13:05 Dose: 100 mg Documented by: Zinc Sulfate (Zinc Sulfate 220 Mg Cap) 220 mg PO DAILY [facility] Last Admin: 04/30/20 09:39 Dose: 220 mg Documented by: Objective - Vital Signs Vital signs: Vital Signs Temp 97.5 F L 04/30/20 04:00 Pulse 70 04/30/20 07:00 Resp 26 H 04/30/20 07:00 BP 114/55 04/28/20 13:06 Pulse Ox 93 L 04/30/20 07:00 Intake & Output 04/29/20 04/30/20 04/30/20 18:59 06:59 18:59 Intake Total 8957.961 2566.482 23 Output Total 70 335 Balance 1053.882 775.482 23 Weight 118 kg Intake: IV 126 256 23 0.9 KVO 220 20 Diana flush 36 36 3 Fluconazole in NaCl,Iso- 50 Osm 100 mg In Saline 1 50ml.bag @ 50 mls/hr IVPB DAILY [facility] Rx#:[id number] Sodium Chloride 0.9% 1, 40 000 ml @ 50 mls/hr IV . Q20H [facility] Rx#:[id number] Intake, IV Titration 616.882 689.482 Amount Diltiazem 125 mg In 125 202.667 Sodium Chloride 0.9% 100 ml @ 10 MG/HR 10 mls/hr IV .[id number] [facility] Rx#: [id number] Piperacillin-Tazobactam 3 100 .375 gm In Sodium Chloride 0.9% 100 ml @ 25 mls/hr IVPB Q12H [facility] Rx# :[id number] fentaNYL (PF) 1,000 mcg 96.84 100.000 In Sodium Chloride 0.9% 80 ml @ Per Protocol IV . Q0M [facility] Rx#:[id number] propofoL 1,000 mg In 295.042 386.815 Empty Bag 1 bag @ Titrate IV .Q0M [facility] Rx#: [id number] Tube Feeding 351 135 Other 30 30 Output: Gastric Drainage 230 Urine 70 105 Other: Voiding Method Indwelling Catheter Indwelling Catheter ABP, PAP, CO, CI - Last Documented Arterial Blood Pressure 95/45 - Exam GENERAL: The patient is intubated and sedated HEENT: Pupils are round and equally reacting to light. EOMI. No scleral icterus. No conjunctival pallor. Normocephalic, atraumatic. No pharyngeal erythema. No thyromegaly. CARDIOVASCULAR: S1 and S2 present. No murmurs, rubs, or gallops. PULMONARY: Chest is clear to auscultation, bilateral crepitation ABDOMEN: Soft, nontender, nondistended, normoactive bowel sounds. No palpable organomegaly. MUSCULOSKELETAL: No joint swelling or deformity. EXTREMITIES: No cyanosis, clubbing, or pedal edema. NEUROLOGICAL: Gross neurological examination did not reveal any focal deficits. SKIN: No rashes. no petechiae. - Labs CBC & Chem 7: 04/30/20 04:10 04/30/20 04:10 Labs: Abnormal Lab Results - Last 24 Hours (Table) 04/29/20 04/29/20 04/29/20 Range/Units 11:58 16:35 19:54 WBC (3.8-10.6) k/uL Neutrophils # (1.3-7.7) k/uL Lymphocytes # (1.0-4.8) k/uL D-Dimer (<0.60) mg/L FEU ABG pH (7.35-7.45) ABG pCO2 (35-45) mmHg ABG pO2 (83-108) mmHg ABG O2 Saturation (94-97) % Sodium (137-145) mmol/L Potassium (3.5-5.1) mmol/L Chloride (98-107) mmol/L Carbon Dioxide (22-30) mmol/L BUN (7-17) mg/dL Creatinine (0.52-1.04) mg/dL Glucose (74-99) mg/dL POC Glucose (mg/dL) 162 H 122 H 132 H (75-99) mg/dL Calcium (8.4-10.2) mg/dL ALT (4-34) U/L Lactate Dehydrogenase (313-618) U/L Creatine Kinase (30-135) U/L C-Reactive Protein (<10.0) mg/L Total Protein (6.3-8.2) g/dL Albumin (3.5-5.0) g/dL 04/29/20 04/30/20 04/30/20 Range/Units 23:28 04:10 04:10 WBC 27.9 H (3.8-10.6) k/uL Neutrophils # 26.7 H (1.3-7.7) k/uL Lymphocytes # 0.2 L (1.0-4.8) k/uL D-Dimer (<0.60) mg/L FEU ABG pH (7.35-7.45) ABG pCO2 (35-45) mmHg ABG pO2 (83-108) mmHg ABG O2 Saturation (94-97) % Sodium 129 L (137-145) mmol/L Potassium 5.9 H (3.5-5.1) mmol/L Chloride 97 L (98-107) mmol/L Carbon Dioxide 21 L (22-30) mmol/L BUN 103 H* (7-17) mg/dL Creatinine 4.97 H (0.52-1.04) mg/dL Glucose 142 H (74-99) mg/dL POC Glucose (mg/dL) 141 H (75-99) mg/dL Calcium 7.5 L (8.4-10.2) mg/dL ALT 37 H (4-34) U/L Lactate Dehydrogenase 1233 H (313-618) U/L Creatine Kinase 25 L (30-135) U/L C-Reactive Protein 10.2 H (<10.0) mg/L Total Protein 5.0 L (6.3-8.2) g/dL Albumin 2.3 L (3.5-5.0) g/dL 04/30/20 04/30/20 04/30/20 Range/Units 04:10 04:11 05:00 WBC (3.8-10.6) k/uL Neutrophils # (1.3-7.7) k/uL Lymphocytes # (1.0-4.8) k/uL D-Dimer 3.04 H (<0.60) mg/L FEU ABG pH 7.13 L* (7.35-7.45) ABG pCO2 65 H (35-45) mmHg ABG pO2 78 L (83-108) mmHg ABG O2 Saturation 93.1 L (94-97) % Sodium (137-145) mmol/L Potassium (3.5-5.1) mmol/L Chloride (98-107) mmol/L Carbon Dioxide (22-30) mmol/L BUN (7-17) mg/dL Creatinine (0.52-1.04) mg/dL Glucose (74-99) mg/dL POC Glucose (mg/dL) 143 H (75-99) mg/dL Calcium (8.4-10.2) mg/dL ALT (4-34) U/L Lactate Dehydrogenase (313-618) U/L Creatine Kinase (30-135) U/L C-Reactive Protein (<10.0) mg/L Total Protein (6.3-8.2) g/dL Albumin (3.5-5.0) g/dL 04/30/20 Range/Units 07:57 WBC (3.8-10.6) k/uL Neutrophils # (1.3-7.7) k/uL Lymphocytes # (1.0-4.8) k/uL D-Dimer (<0.60) mg/L FEU ABG pH (7.35-7.45) ABG pCO2 (35-45) mmHg ABG pO2 (83-108) mmHg ABG O2 Saturation (94-97) % Sodium (137-145) mmol/L Potassium (3.5-5.1) mmol/L Chloride (98-107) mmol/L Carbon Dioxide (22-30) mmol/L BUN (7-17) mg/dL Creatinine (0.52-1.04) mg/dL Glucose (74-99) mg/dL POC Glucose (mg/dL) 134 H (75-99) mg/dL Calcium (8.4-10.2) mg/dL ALT (4-34) U/L Lactate Dehydrogenase (313-618) U/L Creatine Kinase (30-135) U/L C-Reactive Protein (<10.0) mg/L Total Protein (6.3-8.2) g/dL Albumin (3.5-5.0) g/dL Assessment and Plan Assessment: COVID 19 pneumonia Acute hypoxic respiratory failure-status post intubation and mechanical ventilation New onset A. fib with RVR Acute kidney injury with anuria status post hemodialysis Increased d-dimer without evidence of PE Hyponatremia Leukocytosis Elevated inflammatory markers Hypertension Hypothyroidism History of bilateral posterior tibial tendon repair Obesity with BMI of 35 DVT prophylaxis: Subcutaneous Lovenox GI prophylaxis: Pepcid Full code Plan: This is a pleasant 69 years old female with Covid pneumonia and hypoxic respiratory failure. Continue with oxygen supplementation as needed, intubated on mechanical ventilation with pulmonary/critical care team and follow the case closely. Monitor inflammatory markers. Continue with Solu-Medrol and Lovenox and zinc and vitamin C. Lovenox has been adjusted as renal function remains poor. Patient is on hemodialysis with attempts at ultrafiltration today although had to be aborted due to severe hypotension and patient is currently on pressors. Patient is maintaining tube feedings via NG tube and will continue at this time. Patient continues on IV antibiotics in the form of Unasyn and vancomycin being added. Cardizem drip has been discontinued along with amiodarone and patient was transitioned oral amiodarone. Cardiology following closely. Monitor WBC and kidney function Labs and medication were reviewed.. Continue same treatment. Continue with symptomatic treatment. Resume home medication. Monitor lytes and vitals. DVT and GI prophylaxis. Further recommendations as per clinical course of the patient Prognosis remains extremely poor and guarded.
[2020-04-30 15:53] LABS: Glucose,Whole Blood 109 mg/dL (75-99)
--- NOTE | 2020-04-30 16:07 | PN ---
PROGRESS NOTE DATE OF SERVICE: 04/30/2020 REASON FOR FOLLOWUP: Pneumonia. INTERVAL HISTORY: The patient is currently afebrile. The patient is hemodynamically stable, not on any pressor support. FiO2 is currently 65%. She did require pressors during her dialysis and did have removal of the fluid. The patient's FiO2 is currently down to 65% and no significant diarrhea has been reported. PHYSICAL EXAMINATION: Blood pressure is 131/50 with a pulse of 80, temperature 96.3. She is 95% on 55% FiO2. General description is an elderly female intubated on the vent. RESPIRATORY SYSTEM: Unlabored breathing with decreased intensity of breath sounds. HEART: S1, S2. Regular rate and rhythm. ABDOMEN: Soft. No tenderness. EXTREMITIES: Some trace edema of feet. LABS: Hemoglobin is 12.7, white count 27.9. BUN 103, creatinine 4.97. DIAGNOSTIC IMPRESSION AND PLAN: Patient with acute respiratory failure which is multifactorial in this patient who did have acute COVID-19 pneumonia, completed her remdesivir therapy. The patient did have worsening respiratory status as well as renal failure and has been undergoing dialysis. The patient is currently covered with empiric antibiotics; to continue while monitoring clinical course closely. Overall prognosis remains guarded. MMODL / IJN: [id number] /
[2020-04-30 20:25] LABS: Glucose,Whole Blood 116 mg/dL (75-99)
[2020-04-30 23:36] LABS: Glucose,Whole Blood 137 mg/dL (75-99)
[2020-05-01 04:45] LABS: Glucose,Whole Blood 139 mg/dL (75-99)
[2020-05-01] MEDS: INSULIN ASPART (NovoLOG) 100 UNIT/ML VIAL SQ SCH ×6 (04:57→23:41)
[2020-05-01 05:01] LABS: Basophils % (A) 0 %; Eosinophils % (A) 0 %; HCT 36.2 % (34.0-46.0); HGB 11.5 gm/dL (11.4-16.0); Lymphocytes # (A) 0.3 k/uL (1.0-4.8); Lymphocytes % (A) 1 %; MCH 30.5 pg (25.0-35.0); MCHC 31.8 g/dL (31.0-37.0); MCV 95.8 fL (80.0-100.0); Mean Platelet Volume 8.6; Monocytes # (A) 0.6 k/uL (0-1.0); Monocytes % (A) 3 %; Neutrophils # (A) 23.5 k/uL (1.3-7.7); Neutrophils % (A) 96 %; Platelet Count 175 k/uL (150-450); RBC 3.78 m/uL (3.80-5.40); RDW 13.8 % (11.5-15.5); WBC 24.6 k/uL (3.8-10.6)
[2020-05-01 05:17] LABS: Albumin 2.2 g/dL (3.5-5.0); Calcium 7.5 mg/dL (8.4-10.2); Potassium 5.4 mmol/L (3.5-5.1); Total Bilirubin 0.6 mg/dL (0.2-1.3); Total Protein 4.6 g/dL (6.3-8.2)
[2020-05-01] MEDS: LEVOTHYROXINE 50 MCG TAB PO SCH (05:20)
[2020-05-01] MEDS: methylPREDNISolone SOD SUCCI 125 MG/2 ML VIAL IV SCH ×4 (05:21→23:26)
[2020-05-01 05:27] LABS: ABG Base Excess -2.3 mmol/L; ABG HCO3 24 mmol/L (21-25); ABG Oxygen Saturation 92.6 % (94-97); ABG PCO2 51 mmHg (35-45); ABG PH 7.28 (7.35-7.45); ABG PO2 69 mmHg (83-108); ABG TCO2 26 mmol/L (19-24); Allen Test Performed? Yes
[2020-05-01] MEDS: DILTIAZEM 125 MG in SODIUM CHLORIDE 0.9% 100 ML IV SCH (06:43)
[2020-05-01] MEDS: fentaNYL (PF) 1,000 MCG in SODIUM CHLORIDE 0.9% 80 ML IV SCH ×2 (06:44→16:03)
[2020-05-01] MEDS: ALBUTEROL HFA INHALER INHALATION SCH ×4 (07:30→19:00)
--- NOTE | 2020-05-01 07:51 | XR ---
EXAMINATION TYPE: XR chest 1V portable DATE OF EXAM: 05/01/2020 COMPARISON: 04/30/2020 INDICATION: Covid, difficulty breathing TECHNIQUE: Single frontal view of the chest is obtained. FINDINGS: The heart size is normal. The pulmonary vasculature is normal. Diffuse increased lung markings are present which are nonspecific but can be compatible with atypical pneumonia. Endotracheal tube tip is above antwon. Nasogastric tube transverses the thorax. IMPRESSION: 1. Stable diffuse bilateral lung infiltrates can be compatible with pneumonia.
[2020-05-01] MEDS ORDERED: VANCOMYCIN 2,000 MG in SODIUM CHLORIDE 0.9% 500 ML 500 ML IVPB ONE (08:00)
--- NOTE | 2020-05-01 08:45 | P.PN ---
Subjective Progress Note Date: 05/01/20 This 69-year-old white female patient who was admitted to the hospital on 04/11/2020 when she came in for evaluation of 1 week history of cough, fever, shortness of breath, decreased appetite and intermittent episodes of diarrhea. Patient was diagnosed with COVID 19 pneumonia, this was done via outpatient testing through the health Department. Patient initially presented at [facility], she was hypoxemic with a pulse ox in the 80s and she was placed on high flow oxygen and transferred to the [facility]. CT angiogram of the chest showed no evidence of pulmonary embolism, however it showed evidence of bilateral interstitial infiltrates consistent with COVID 19 pneumonitis. Patient completed her Remdesivir treatment on 04/16/2020, she received 2 units of convalescent plasma, she remains on IV steroids with IV Solu-Medrol. In view of her worsening hypoxemia patient was transferred to the intensive care unit, she is intubated on 04/24/2020 The patient is seen today 04/26/2020 and follow-up in the intensive care unit. She remains intubated on the mechanical ventilator. She was intubated on 04/24/2020 . Current settings are assist-control of 40, tidal volume 400, FiO2 60% and a PEEP of 15. Blood gases that a pH of 7.36 with a pCO2 of 50 and pO2 of 67. Chest x-ray from today is showing bilateral pulmonary infiltrates, interstitial and diffuse. ET tube is in a good location. I do not see any major interval change in her chest x-ray findings or the past 48 hours. She remains on 0.9 normal saline at 50 MLS per hour. Propofol at 50 mcg/kg/m. Nimb ex at 1.0 L micrograms per kilogram per minute. She is on amiodarone at 0.5 mg/m for AFIB/SVT. Her rate is better controlled today. She has a normal sinus rhythm for now and she is on po amiodarone. Chest x-ray with similar findings of bilateral groundglass opacity, air space disease which is stable compared to previous. She has received 2 units of convalescent plasma. She completed Remdesivir. Blood cultures reveal no growth. Urine culture revealed no growth. She was given IV Zosyn empirically. Remains on Solu-Medrol 60 mg every 6.Of significance is also development of an acute kidney injury. The patient's urine output is less than 5 mL an hour. Creatinine came up from a baseline of 0 point up to 1.34 and later on to 2.8. Nephrology is on the case. Ultrasound the kidneys was negative. Dialysis cath will be inserted today. Today's evaluation of 04/27/2020, I am seeing the patient for a follow-up. As mentioned earlier, this is a case of coronary via/fluid 19 related pneu monia/ARDS and the patient remains intubated on a mechanical ventilator. This morning, she is assist-control mode at the rate of 32 with a tidal volume of 100 and FiO2 of 60% with a PEEP of 15. The blood gases from today shows a pH of 7.21 with a pCO2 of 64 and pO2 of 70. The patient is very much success with the mechanical ventilator. The patient is still on propofol running at 40 mcg/kg per minute. She is also on Nimbex and she is paralyzed in the maxillary running at 1 mcg/kg per minute. I think it's time to give the patient a paralytic holiday today. Her peak airway pressure on a mechanical ventilator is in order of 33 with a static pressure of around 30. The chest x-ray from today is showing a bilateral pulmonary infiltrates which is more so in the lower lobes bilaterally. No major interval change compared to yesterday. ET tube is in a good location. NG tube was also within the stomach and is also in a good location. IV fluids are running in the form of 0.9 at the rate of 50 mL an hour. The neck fluid balance over the past 24 hours is +1.9 L and 4.1 L earlier than 3.0 L earlier. As such the patient has been a significant positive fluid balance pH is undergoing hemodialysis in the last bout of hemodialysis was yesterday. A total of 1 L of fluid was removed. I think ultrafiltration is to be somewhat aggressively. The white cell count is at 30 the creatinine today is at 3.37 with a BUN of 71. The patient also has a white cell count of 30. Hemoglobin is at 14.7. Enteral feeding for nutritional support is running and the patient is on Nepro. Inflammatory markers today showed a CRP of 40 which is lower compared to yesterday. LDH is still pending. Last LDH level was elevated at 2444 and a progressive on 11 was 0.39 which is essentially low knowing that the patient has an underlying acute kidney injury. The patient's cardiac rhythm is A. fib and the rate is ranging between 100 and 120. The patient is currently on amiodarone at 1 mg/m 04/28/2020, the patient remains intubated on a mechanical ventilator. The patient has a Covid 19 related pneumonia/ARDS. On today's evaluation, the patient is on propofol running at 50 mcg/kg per minute. The patient seems to be off the paralytics since yesterday. On today's evaluation, she was breathing quite rapidly and she was tachypneic and the pulses was in the mid 80s. Earlier this morning showed an assist-control mode of mechanical ventilation at the rate of 32 with a tidal volume of 400 and FiO2 of 65% with a PEEP of 15. The blood gases from today showed a pH of 7.31 with a pCO2 of 50 and pO2 of 61. Chest x- ray shows limited infiltration of the lung bases bilaterally. The white cell co unt was at 33.5. Hemoglobin is 13.4. The d-dimer is at 3.82. The LDH level is down to 1581. The CRP level is down to 21.9. The patient is not making any urine. Urine output is minimal at one time. BUN is at 63 with a creatinine of 3.8 and the rest of the electrolytes are all within normal limits. The patient is receiving her first session of hemodialysis today. Meanwhile, the patient remains on a A. fib rhythm and the patient is on amiodarone at 1 mg per minute and the patient is also on Cardizem running at 15mg an hour. She is less tachycardic while on treatment. Also, the patient is feeding for nutritional support and the patient is on vital high protein running at the rate of 27 mL an hour. The patient remains on Solu-Medrol at a dose of 60 mg every 6 hours, we were considering Actemra , and based on our discussion with the pharmacy, and based on the availability of the medication and its limited criteria for use, we were not able to deliver the medication to this patient. On 04/29/2020, the patient remains intubated on a mechanical ventilator. I have elected discussion with the nephew who is a retired physician. He expressed wishes to transfer for at least consider other interventions such as ECMO on this patient. I personally think that she is not a candidate for this type of treatment. I contacted the [facility] team and the chamber was declined. The nephew was informed to. Meanwhile, I continue to support this patient. Intensive care unit. The patient remains in acute hypoxic respiratory failure secondary to Covid 19 related pneumonia/ARDS. She remains sedated with propofol running at the micrograms and I'm in the process of weaning the propofol to a lesser degree of sedation. At the same time, the patient is on fentanyl running at 50 mcg/h. The patient remains on a tidal volume of 400 with an FiO2 of 70% with a PEEP of 5 and the respiratory of 26. The morning blood gases showed a pH of 7.24 with a pCO2 of 56 and pO2 of 75. Chest x-ray showing diffuse bilateral pulmonary infiltrates, probably slightly worse compared to yesterday. She remains on IV Solu-Medrol. Markers from today shows a LDH level of 1281, her CRP level is down to 17.8. The pro calcitonin level was at 0.39. Hemodynamically, the patient is still on a combination of Cardizem and amiodarone drip. Cardizem is running at 50 mg an hour and amiodarone drip is at 0.5 mg per minute and her heart is on a under much better control for now. Amiodarone can be switched to oral. The patient is also on IV fluids at 20 mL an hour. Her last bout of hemodialysis was yesterday with ultrafiltration of 1 L. I think she'll be given a break of dialysis. Her urine output is 5 ML's over the past 4 hours. Bryan cath is in place. She is afebrile. Enteral f eeding for nutritional support in the form of vital high protein at the rate of 27 mL an hour. She is tolerating his tube feeds. He is having some liquidy bowel movements. Stool for C. diff was negative. No abdominal distention. No other significant events overnight otherwise. 04/30/2020, the patient is still doing the same while intubated on a mechanical ventilator. In fact this morning, the patient had issues with hypotension. Pressors were started and during dialysis the patient became further hypotensive and the levo fed was increased up to 0.3 mcg/kg per minute. In summary, the p ben's condition today is quite critical. The patient is sedated with propofol at a rate of 75 mcg/kg per minute and fentanyl with 1 mcg/kg/h. The patient is well sedated. She is up paralytics patient had an assist-control mode of ventilation at the rate of 26 with a tidal volume of 400 and FiO2 of 65% with a PEEP of 15. Her peak airway pressure is around 34 with a static pressure of around 31. The morning blood gases showed a pH of 7.13 with a pCO2 of 65 and pO2 of 78. The patient has stable chest x-ray with diffuse bilateral pulmonary infiltrates unchanged compared to yesterday. She remains in atrial fibrillation. Amiodarone drip was discontinued and the patient was placed on Klonopin milligrams amiodarone orally twice a day. She is also on Cardizem drip which is running at 5 mg an hour. The patient is on normal saline at rate of 20 mL an hour. She was supposed to get dialysis with ultrafiltration. The ultrafiltration was aborted as the patient became quite hypotensive and her pressor requirements went up. She remains on IV Solu Medrol 60 mg every 6 hours. She remains on aggressive the vitamin supplements regarding the Covid 19 related pneumonia. Her last echo was at 27.9. Hemoglobin was at 12.7. D-dimer is at 3.04, the LDH level was 1233 and the CRP level is down to 10.2. LEVEL IS AT 0.39 FROM FEW DAYS AGO AND THIS WILL BE REPEATED. . She is afebrile. She remains on the same antibiotic coverage. The patient is on a combination of Zosyn and Diflucan. She also has a PICC line in left upper extremity. Lovenox is running at 30 mg subcu every 24 hours. She is tolerating her enteral feeding for nutritional support. She is receiving vital high protein. She is tolerating her few feeds. Stool for C. diff has been negative as the patient was having some liquidy stool. No abdominal distention. 3 2020, the patient remains sedated with propofol running at 30 mcg/kg per minute and fentanyl at 1 mcg/kg/h. Her sedation level is adequate for now. She grimaces to deep painful stimulation. She is still on a mechanical ventilator. She is on assist-control at the rate of 32 with a tidal volume of 400 and FiO2 of 60% with a PEEP of 15. Peak airway pressures 32. Static pressures 30. Chest x-ray is unchanged. No orotracheal secretions. Her periods from today showed a pH of 7.28 with a pCO2 of 51 and pO2 of 69. Rest of the blood work essentially stable. The white cell count is lower at 24.6. D-dimer is down to 3.75 and the patient's rest of the inflammatory markers show a LDH of 1374 which is slightly elevated compared to yesterday and CRP of 20.0 which is also slightly elevated compared to yesterday. She is afebrile. She converted into normal sinus rhythm. She is on 10 mg of Cardizem drip and this will be gradually weaned off. She is on amiodarone 200 mg twice a day. We have noticed some rise in her liver function tests and based on today's values the ALT is up to 211 and AST is up to 165. The total bilirubin is at 0.6. She was having difficulties in tolerating her enteral feeding yesterday and that were placed on hold. The increase in residual was noted. We are going to restart the tube feeds as the output from the NG tube is minimal and the patient's bowel sounds although hypoactive they're still present. She has a PICC line in the left upper extremity. The functionality of the temporary dialysis catheter is in question and the vascular surgeon with the evaluate the situation. The patient was dialyzed yesterday without ultrafiltration. She became hemodynamically unstable during dialysis. Currently she is off pressors and dialyzes will be reconsidered. Protein S troponin level is down and the patient will be taken off the antibiotics positive the blood cultures of been all negative and the pat ient has been afebrile for now. No other issues. Fecal management system in the output is minimal, probably 200 since 24 hours and stool for C. diff has been negative. Objective - Vital Signs Vital signs: Vital Signs Temp 98.4 F 05/01/20 00:00 Pulse 60 05/01/20 07:00 Resp 32 H 05/01/20 07:00 BP 0/0 04/30/20 17:00 Pulse Ox 92 L 05/01/20 07:00 Intake & Output 04/30/20 05/01/20 05/01/20 18:59 06:59 18:59 Intake Total 2025.449 924.706 23 Output Total 115 100 10 Balance 1910.449 824.706 13 Weight 118 kg 120.3 kg Intake: IV 870 276 23 0.9 KVO 190 240 20 [place] flush 30 36 3 Fluconazole in NaCl,Iso- 50 Osm 100 mg In Saline 1 50ml.bag @ 50 mls/hr IVPB DAILY [facility] Rx#:[id number] Piperacillin-Tazobactam 3 100 .375 gm In Sodium Chloride 0.9% 100 ml @ 25 mls/hr IVPB Q12H [facility] Rx# :[id number] Vancomycin 2,000 mg In 500 Sodium Chloride 0.9% 500 ml 500 ml @ 167 mls/hr IVPB ONCE ONE Rx#: [id number] Intake, IV Titration 655.449 648.706 Amount Diltiazem 125 mg In 75.000 Sodium Chloride 0.9% 100 ml @ 10 MG/HR 10 mls/hr IV .[id number] [facility] Rx#: [id number] Diltiazem 125 mg In 125 Sodium Chloride 0.9% 100 ml @ Per Protocol IV .Q0M [facility] Rx#:[id number] Norepinephrine 8 mg In 302.144 66.219 Sodium Chloride 0.9% 250 ml @ 0.05 MCG/KG/MIN 11. 417 mls/hr IV .[id number] [facility] Rx#:[id number] fentaNYL (PF) 1,000 mcg 89.243 192.705 In Sodium Chloride 0.9% 80 ml @ Per Protocol IV . Q0M [facility] Rx#:[id number] propofoL 1,000 mg In 189.062 264.782 Empty Bag 1 bag @ Titrate IV .Q0M [facility] Rx#: [id number] Hemodialysis 500 Output: Gastric Drainage 100 100 Urine 15 0 10 Other: Voiding Method Indwelling Catheter Indwelling Catheter ABP, PAP, CO, CI - Last Documented Arterial Blood Pressure 130/51 - Labs CBC & Chem 7: 05/01/20 04:35 05/01/20 04:35 Labs: Abnormal Lab Results - Last 24 Hours (Table) 04/30/20 04/30/20 04/30/20 Range/Units 04:10 04:10 13:20 WBC (3.8-10.6) k/uL RBC (3.80-5.40) m/uL Neutrophils # (1.3-7.7) k/uL Lymphocytes # (1.0-4.8) k/uL D-Dimer (<0.60) mg/L FEU ABG pH (7.35-7.45) ABG pCO2 (35-45) mmHg ABG pO2 (83-108) mmHg ABG Total CO2 (19-24) mmol/L ABG O2 Saturation (94-97) % Sodium (137-145) mmol/L Potassium (3.5-5.1) mmol/L BUN (7-17) mg/dL Creatinine (0.52-1.04) mg/dL Glucose (74-99) mg/dL POC Glucose (mg/dL) 123 H (75-99) mg/dL Calcium (8.4-10.2) mg/dL Ferritin 2348.7 H (10.0-291.0) ng/mL AST (14-36) U/L ALT (4-34) U/L Lactate Dehydrogenase (313-618) U/L C-Reactive Protein (<10.0) mg/L Total Protein (6.3-8.2) g/dL Albumin (3.5-5.0) g/dL Procalcitonin 0.31 H (0.02-0.09) ng/mL 04/30/20 04/30/20 04/30/20 Range/Units 15:52 20:23 23:33 WBC (3.8-10.6) k/uL RBC (3.80-5.40) m/uL Neutrophils # (1.3-7.7) k/uL Lymphocytes # (1.0-4.8) k/uL D-Dimer (<0.60) mg/L FEU ABG pH (7.35-7.45) ABG pCO2 (35-45) mmHg ABG pO2 (83-108) mmHg ABG Total CO2 (19-24) mmol/L ABG O2 Saturation (94-97) % Sodium (137-145) mmol/L Potassium (3.5-5.1) mmol/L BUN (7-17) mg/dL Creatinine (0.52-1.04) mg/dL Glucose (74-99) mg/dL POC Glucose (mg/dL) 109 H 116 H 137 H (75-99) mg/dL Calcium (8.4-10.2) mg/dL Ferritin (10.0-291.0) ng/mL AST (14-36) U/L ALT (4-34) U/L Lactate Dehydrogenase (313-618) U/L C-Reactive Protein (<10.0) mg/L Total Protein (6.3-8.2) g/dL Albumin (3.5-5.0) g/dL Procalcitonin (0.02-0.09) ng/mL 05/01/20 05/01/20 05/01/20 Range/Units 04:35 04:35 04:35 WBC 24.6 H (3.8-10.6) k/uL RBC 3.78 L (3.80-5.40) m/uL Neutrophils # 23.5 H (1.3-7.7) k/uL Lymphocytes # 0.3 L (1.0-4.8) k/uL D-Dimer 3.75 H (<0.60) mg/L FEU ABG pH (7.35-7.45) ABG pCO2 (35-45) mmHg ABG pO2 (83-108) mmHg ABG Total CO2 (19-24) mmol/L ABG O2 Saturation (94-97) % Sodium 134 L (137-145) mmol/L Potassium 5.4 H (3.5-5.1) mmol/L BUN 81 H (7-17) mg/dL Creatinine 3.98 H (0.52-1.04) mg/dL Glucose 146 H (74-99) mg/dL POC Glucose (mg/dL) (75-99) mg/dL Calcium 7.5 L (8.4-10.2) mg/dL Ferritin (10.0-291.0) ng/mL AST 165 H (14-36) U/L ALT 211 H (4-34) U/L Lactate Dehydrogenase 1374 H (313-618) U/L C-Reactive Protein 21.0 H (<10.0) mg/L Total Protein 4.6 L (6.3-8.2) g/dL Albumin 2.2 L (3.5-5.0) g/dL Procalcitonin (0.02-0.09) ng/mL 05/01/20 05/01/20 Range/Units 04:43 05:25 WBC (3.8-10.6) k/uL RBC (3.80-5.40) m/uL Neutrophils # (1.3-7.7) k/uL Lymphocytes # (1.0-4.8) k/uL D-Dimer (<0.60) mg/L FEU ABG pH 7.28 L (7.35-7.45) ABG pCO2 51 H (35-45) mmHg ABG pO2 69 L (83-108) mmHg ABG Total CO2 26 H (19-24) mmol/L ABG O2 Saturation 92.6 L (94-97) % Sodium (137-145) mmol/L Potassium (3.5-5.1) mmol/L BUN (7-17) mg/dL Creatinine (0.52-1.04) mg/dL Glucose (74-99) mg/dL POC Glucose (mg/dL) 139 H (75-99) mg/dL Calcium (8.4-10.2) mg/dL Ferritin (10.0-291.0) ng/mL AST (14-36) U/L ALT (4-34) U/L Lactate Dehydrogenase (313-618) U/L C-Reactive Protein (<10.0) mg/L Total Protein (6.3-8.2) g/dL Albumin (3.5-5.0) g/dL Procalcitonin (0.02-0.09) ng/mL Assessment and Plan Plan: 1 Acute hypoxemic respiratory failure secondary to acute COVID 19 pneumonia/pneumonitis, failed previous oxygenation treatments and required intubation and mechanical ventilatory support 04/24/2020. The patient completed a course of Remdesivir on the 04/16/2020, received 2 units of convalescent plasma patient remains on IV steroids and anticoagulation the form of Lovenox. The patient remains sadated and off paralysis and the patient is is on IV solumedrol and empiric antibiotic coverage with IV Zosyn and Diflucan. The patient is on low tidal volume ventilation with tidal volume of 400 the rate of 26 , PEEP 15 with an FiO2 of 60%. Chest x-ray remains unchanged. It is consistent with post Covid pneumonia/ARDS. Blood gases consistent with permissive hypercapnia. The patient remains intubated on a mechanical ventilator. Off paralytics. Still on a combination of propofol and fentanyl drip for sedation secondary with mechanical ventilator. Again, no new major changes in her condition and the patient's oxygenation is very borderline. Chest x-ray is unchanged. We'll give another 24 hours. Discussed the case with her nephew, the physician who is and touch with me on a daily basis. 2 A. fib RVR, currently off miodarone drip and the patient is also on a Cardizem drip for rate control at the rate of 10 mg an hour has already converted into normal sinus rhythm. Cardizem drip will be weaned off for now. 3 Possible urinary tract infection related to yeast, current empiric antibiotic coverage includes Zosyn and Diflucan was added 04/23/2020 4 acute kidney injury, probably related to Covid 19 infection, and the patient is currently dialysis dependent 5 hypotension requiring pressors. Consider underlying sepsis/infection contributing to his hypotension and the patient is currently on levo fed and pressor doses went up as the patient was being dialyzed. The goal for now is dialysis without ultrafiltration. The hypotension is recovered and the patient is currently off pressors. Cultures of been negative. Progesterone level is low 6 Elevated d-dimer, without evidence of pulmonary embolism. Remains on Lovenox 30 mg sub daily and this was adjusted based on his underlying acute kidney injury in renal failure. D-dimer is being monitored. The latest level of d-dimer was added 3.75 7 Leukocytosis, possibly related to IV steroids, rule out possibility of a bacte rial superinfection of pro-calcitonin is low and the patient has been on IV Zosyn since 2020.The pro-calcitonin level currently is at 0.31 and a white cell count is down to 24 8 Elevated liver enzymes likely related to viral pneumonia, recovered 9 Elevated inflammatory markers related to acute COVID 19 pneumonia, And the levels remain quite elevated and repeat levels will be obtained. The LDH and CRP compared to yesterday he slightly improved yet still elevated. 10 obesity Plan: Continuefentanyl for sedation and wean off the propofol triglyceride level and if sedation is needed, attempt Precedex continue low tidal volume ventilation with an assist-control mode, volume cycle with a rate of 26 tidal volume of 400, I time of 0.9, FiO2 of 60% with a PEEP of 15 Amiodarone 200 mg of amiodarone by mouth twice a day and wean off Cardizem and possibly discontinue Remains on IV Solu-Medrol, Lovenox, Zosyn, and the dose of Lovenox has been adjusted to a account for the acute kidney injury patient is currently receiving 30 mg subcu on a daily basis The patient is a hemodialysis yesterday with ultrafiltration of 1.0 L. no dialysis for today, will need another hemodialysis catheter and possible hemodialysis today and this will be decided by nephrology Restart feeding for nutritional support, currently on vital high protein Recheck pro-calcitonin level levels are low and the patient be taken off antibiotics Recheck blood cultures 2 are negative Stop the Diflucan Prognosis is poor Family is updated We will continue to follow and make further recommendations based on her clinical status Critical care time >30 minutes Time with Patient: Greater than 30 Time with Patient: Greater than 30
[2020-05-01 09:02] LABS: Glucose,Whole Blood 138 mg/dL (75-99)
[2020-05-01] MEDS: CHLORHEXIDINE GLUCONATE 15 ML CUP MUCOUS MEM SCH ×2 (09:14→20:09)
[2020-05-01] MEDS: ENOXAPARIN 30 MG/0.3 ML SYRINGE SQ SCH (09:15)
[2020-05-01] MEDS: AMIODARONE 200 MG TAB PO SCH (09:16)
[2020-05-01 10:40] LABS: Ferritin 2816.4 ng/mL (10.0-291.0)
[2020-05-01 12:16] LABS: Glucose,Whole Blood 136 mg/dL (75-99)
[2020-05-01] MEDS ORDERED: AMIODARONE 360 MG in DEXTROSE 5% IN WATER 200 ML IV ONE ×2 (14:00)
[2020-05-01] MEDS ORDERED: DEXTROSE 5% IN WATER 100 ML with AMIODARONE 150 MG IV ONE (14:00)
[2020-05-01] MEDS: FOLIC ACID 1 MG TAB PO SCH (14:25)
[2020-05-01] MEDS: ASCORBIC ACID 500 MG TAB PO SCH (14:25)
[2020-05-01] MEDS: FAMOTIDINE 20 MG TAB OG-TUBE SCH (14:25)
[2020-05-01] MEDS: ZINC SULFATE 220 MG CAP PO SCH (14:26)
[2020-05-01] MEDS: CHOLECALCIFEROL 25 MCG (1000 IU) TABLET PO SCH (14:26)
[2020-05-01] MEDS: MULTIVITAMINS, THERA 1 EACH TAB PO SCH (14:26)
[2020-05-01] MEDS: THIAMINE 100 MG TAB PO SCH (14:26)
--- NOTE | 2020-05-01 14:45 | PN ---
PROGRESS NOTE The patient is seen for followup for acute kidney injury. The patient is currently on the vent. Case is discussed with nursing staff. The patient's FiO2 is at about 60%, it is stable. Blood pressure this morning 164/58, heart rate 65 per minute. The patient is maintained on Cardizem drip at 5 mg an hour. She is maintained on propofol and fentanyl. Pressors are discontinued, as blood pressure is on the higher side. Propofol is being weaned down. The patient has had poor urine output. She is scheduled for hemodialysis today. PHYSICAL EXAMINATION: On examination, the case is discussed. The patient is not examine. Vital signs are reviewed. Blood pressure 164/58, heart rate 65 per minute. She is afebrile. Edema is noted in the lower extremities. Abdomen is soft, nontender. Tube feeds currently on hold secondary to positive occult blood. LABS: Show sodium 134, potassium 5.4, chloride 103, CO2 is 24, BUN 81, serum creatinine 3.98, hemoglobin 11.5 g/dL. ASSESSMENT: 1. Acute kidney injury, acute tubular necrosis, currently oliguric and hemodialysis dependent. Scheduled for hemodialysis today. There was some trouble with the catheter yesterday. Patient will be dialyzed again. If she continues to have issues, we will switch to IJ PermCath. 2. COVID-19 pneumonia, currently on the vent, status post Remdesivir. Maintained on steroids. 3. Atrial fibrillation with an RVR currently off amiodarone drip, maintained on Cardizem. 4. Hypotension from sepsis, currently off pressors. Blood pressure is actually high. PLAN: Hemodialysis today. If catheter is not functioning well, we will switch to IJ PermCath. MMODL / IJN: [id number] /
--- NOTE | 2020-05-01 15:06 | P.PN ---
Subjective Progress Note Date: 05/01/20 This is a 69-year-old female who is being treated for COVID pneumonia, respiratory failure on mechanical ventilator and also acute renal failure. Patient is going to have dialysis catheter inserted. We are seeing the patient because of atrial fibrillation. Patient was on IV amiodarone, which were change d to by mouth amiodarone. Yesterday. She is getting 400 mg by mouth twice a day. She is currently seem to be sinus rhythm with frequent APCs with short course of SVT. Chest x-ray. Continue show bilateral pneumonias. Patient is being followed by pulmonology and also nephrology. We'll continue current medical therapy. 04/27/2020: This patient developed A. fib with RVR last night. Patient was initiated on IV amiodarone bolus and drip. Patient is currently on 1 mg drip. Heart rate in the 90s to 100 range. Patient is still sedated and intubated on mechanical ventilator. She is also being treated for renal failure. From [facility] standpoin, We'll continue amiodarone drip for now. A. fib with RVR related to underlying respiratory failure. Overall prognosis is guarded. 04/28/20: This patient is still on mechanical ventilation. Patient is requiring Levophed for blood pressure support. Patient is also on IV Cardizem and also IV amiodarone on heart rates in the 80s 70s and 80s. Patient doesn't have a urine output and she is on dialysis. Overall patient clinical status remains critical. From cardiac standpoint we'll continue amiodarone and Cardizem for rate control. We'll continue with ventilatory support. Pulmonary and also nephrology is following. . Patient prognosis is poor. 04/30/2020: This patient is still intubated and on sedation. She is also on intermittent dialysis. Her urine output seemed to be picking up. Patient is a [place] fibrillation with controlled ventricular response at this time. He amiodarone was switched from drip to 200 mg by mouth twice a day. She still on IV Cardizem at 10 mg per hour. This can be slowly tapered off as he tolerates. Patient is on multiple other medication for Covid pneumonia. Chest x-ray continue show diffuse infiltrates. Overall her prognosis seems to be poor. We'll continue to manage atrial fibrillation with combination of amiodarone by mouth and Cardizem IV. Cardizem could be tapered down: 05/01/2020: This patient is still intubated and sedated. Her heart rate has been controlled until today. Today there was attempt to cut back on sedation and also she was receiving dialysis. Her heart rate has jumped up again. We'll resume her amiodarone drip with a bolus of 150 mg. Cardizem is at 10 mg/h. Once the heart rate is controlled with amiodarone drip, will cut back on the Cardizem. Patient is on dialysis for renal failure. She is being treated for Covid pneumonia and respiratory failure. We'll continue current management. We will follow Objective - Vital Signs Vital signs: Vital Signs Temp 97.9 F 05/01/20 12:00 Pulse 68 05/01/20 14:00 Resp 32 H 05/01/20 14:00 BP 142/62 05/01/20 14:00 Pulse Ox 91 L 05/01/20 14:00 Intake & Output 04/30/20 05/01/20 05/01/20 18:59 06:59 18:59 Intake Total 2025.449 924.706 390.111 Output Total 115 100 55 Balance 1910.449 824.706 335.111 Weight 118 kg 120.3 kg Intake: IV 870 276 184 0.9 KVO 190 240 160 [place] flush 30 36 24 Fluconazole in NaCl,Iso- 50 Osm 100 mg In Saline 1 50ml.bag @ 50 mls/hr IVPB DAILY PERRY Rx#:[id number] Piperacillin-Tazobactam 3 100 .375 gm In Sodium Chloride 0.9% 100 ml @ 25 mls/hr IVPB Q12H PERRY Rx# :[id number] Vancomycin 2,000 mg In 500 Sodium Chloride 0.9% 500 ml 500 ml @ 167 mls/hr IVPB ONCE ONE Rx#: [id number] Intake, IV Titration 655.449 648.706 206.111 Amount Amiodarone 360 mg In 100 Dextrose 5% in Water 200 ml @ 1 MG/MIN 33.333 mls/ hr IV .Q6H ONE Rx#: [id number] Diltiazem 125 mg In 75.000 Sodium Chloride 0.9% 100 ml @ 10 MG/HR 10 mls/hr IV .[id number] PERRY Rx#: [id number] Diltiazem 125 mg In 125 32.833 Sodium Chloride 0.9% 100 ml @ Per Protocol IV .Q0M PERRY Rx#:[id number] Norepinephrine 8 mg In 302.144 66.219 Sodium Chloride 0.9% 250 ml @ 0.05 MCG/KG/MIN 11. 417 mls/hr IV .[id number] PERRY Rx#:[id number] fentaNYL (PF) 1,000 mcg 89.243 192.705 In Sodium Chloride 0.9% 80 ml @ Per Protocol IV . Q0M PERRY Rx#:[id number] propofoL 1,000 mg In 189.062 264.782 73.278 Empty Bag 1 bag @ Titrate IV .Q0M PERRY Rx#: [id number] Hemodialysis 500 Output: Gastric Drainage 100 100 Urine 15 0 55 Other: Voiding Method Indwelling Catheter Indwelling Catheter Indwelling Catheter ABP, PAP, CO, CI - Last Documented Arterial Blood Pressure 117/50 - Exam Patient is not personally examined because of covid infection. Information is gathered from nurses and other consultants notes - Labs CBC & Chem 7: 05/01/20 04:35 05/01/20 04:35 Labs: Abnormal Lab Results - Last 24 Hours (Table) 04/30/20 04/30/20 04/30/20 Range/Units 15:52 20:23 23:33 WBC (3.8-10.6) k/uL RBC (3.80-5.40) m/uL Neutrophils # (1.3-7.7) k/uL Lymphocytes # (1.0-4.8) k/uL D-Dimer (<0.60) mg/L FEU ABG pH (7.35-7.45) ABG pCO2 (35-45) mmHg ABG pO2 (83-108) mmHg ABG Total CO2 (19-24) mmol/L ABG O2 Saturation (94-97) % Sodium (137-145) mmol/L Potassium (3.5-5.1) mmol/L BUN (7-17) mg/dL Creatinine (0.52-1.04) mg/dL Glucose (74-99) mg/dL POC Glucose (mg/dL) 109 H 116 H 137 H (75-99) mg/dL Calcium (8.4-10.2) mg/dL Ferritin (10.0-291.0) ng/mL AST (14-36) U/L ALT (4-34) U/L Lactate Dehydrogenase (313-618) U/L C-Reactive Protein (<10.0) mg/L Total Protein (6.3-8.2) g/dL Albumin (3.5-5.0) g/dL Triglycerides (<150) mg/dL 05/01/20 05/01/20 05/01/20 Range/Units 04:35 04:35 04:35 WBC 24.6 H (3.8-10.6) k/uL RBC 3.78 L (3.80-5.40) m/uL Neutrophils # 23.5 H (1.3-7.7) k/uL Lymphocytes # 0.3 L (1.0-4.8) k/uL D-Dimer 3.75 H (<0.60) mg/L FEU ABG pH (7.35-7.45) ABG pCO2 (35-45) mmHg ABG pO2 (83-108) mmHg ABG Total CO2 (19-24) mmol/L ABG O2 Saturation (94-97) % Sodium 134 L (137-145) mmol/L Potassium 5.4 H (3.5-5.1) mmol/L BUN 81 H (7-17) mg/dL Creatinine 3.98 H (0.52-1.04) mg/dL Glucose 146 H (74-99) mg/dL POC Glucose (mg/dL) (75-99) mg/dL Calcium 7.5 L (8.4-10.2) mg/dL Ferritin 2816.4 H (10.0-291.0) ng/mL AST 165 H (14-36) U/L ALT 211 H (4-34) U/L Lactate Dehydrogenase 1374 H (313-618) U/L C-Reactive Protein 21.0 H (<10.0) mg/L Total Protein 4.6 L (6.3-8.2) g/dL Albumin 2.2 L (3.5-5.0) g/dL Triglycerides (<150) mg/dL 05/01/20 05/01/20 05/01/20 Range/Units 04:35 04:43 05:25 WBC (3.8-10.6) k/uL RBC (3.80-5.40) m/uL Neutrophils # (1.3-7.7) k/uL Lymphocytes # (1.0-4.8) k/uL D-Dimer (<0.60) mg/L FEU ABG pH 7.28 L (7.35-7.45) ABG pCO2 51 H (35-45) mmHg ABG pO2 69 L (83-108) mmHg ABG Total CO2 26 H (19-24) mmol/L ABG O2 Saturation 92.6 L (94-97) % Sodium (137-145) mmol/L Potassium (3.5-5.1) mmol/L BUN (7-17) mg/dL Creatinine (0.52-1.04) mg/dL Glucose (74-99) mg/dL POC Glucose (mg/dL) 139 H (75-99) mg/dL Calcium (8.4-10.2) mg/dL Ferritin (10.0-291.0) ng/mL AST (14-36) U/L ALT (4-34) U/L Lactate Dehydrogenase (313-618) U/L C-Reactive Protein (<10.0) mg/L Total Protein (6.3-8.2) g/dL Albumin (3.5-5.0) g/dL Triglycerides 285 H (<150) mg/dL 05/01/20 05/01/20 Range/Units 09:00 12:14 WBC (3.8-10.6) k/uL RBC (3.80-5.40) m/uL Neutrophils # (1.3-7.7) k/uL Lymphocytes # (1.0-4.8) k/uL D-Dimer (<0.60) mg/L FEU ABG pH (7.35-7.45) ABG pCO2 (35-45) mmHg ABG pO2 (83-108) mmHg ABG Total CO2 (19-24) mmol/L ABG O2 Saturation (94-97) % Sodium (137-145) mmol/L Potassium (3.5-5.1) mmol/L BUN (7-17) mg/dL Creatinine (0.52-1.04) mg/dL Glucose (74-99) mg/dL POC Glucose (mg/dL) 138 H 136 H (75-99) mg/dL Calcium (8.4-10.2) mg/dL Ferritin (10.0-291.0) ng/mL AST (14-36) U/L ALT (4-34) U/L Lactate Dehydrogenase (313-618) U/L C-Reactive Protein (<10.0) mg/L Total Protein (6.3-8.2) g/dL Albumin (3.5-5.0) g/dL Triglycerides (<150) mg/dL Microbiology - Last 24 Hours (Table) 04/30/20 12:20 Blood Culture - Preliminary Blood No Growth after 24 hours Assessment and Plan (1) Atrial fibrillation with RVR Current Visit: Yes Status: Acute Code(s): I48.91 - UNSPECIFIED ATRIAL FIBRILLATION SNOMED Code(s): 812796859986681 (2) Pneumonia due to COVID-19 virus Current Visit: Yes Status: Acute Code(s): U07.1 - COVID-19; J12.82 - Pneumonia due to coronavirus disease 2019 SNOMED Code(s): 823259960586340099 (3) Acute renal failure Current Visit: Yes Status: Acute Code(s): N17.9 - ACUTE KIDNEY FAILURE, UNSPECIFIED SNOMED Code(s): 78469770 Plan: Continue, and a sterile Cardizem and amiodarone for control of her heart rhythm and rate. She is back on IV amiodarone drip which can be tapered off once the heart rate is controlled. Patient's respiratory status is still critical. Patient has renal failure on dialysis. Prognosis is poor
[2020-05-01 16:18] LABS: Glucose,Whole Blood 152 mg/dL (75-99)
--- NOTE | 2020-05-01 19:21 | P.PN ---
Subjective Ms. Mccoy is a 69-year-old female with a past medical history of hypertension and thyroid disorder admitted to the hospital for acute hypoxic respiratory failure secondary to COVID 19 pneumonia. Patient has extensive bilateral interstitial pneumonia. She is on a low and pulmonary Dr. Mathews is following the patient. Patient received a convalescent plasma, is also on Remdesivir. On 04/17/2020- This morning patient was evaluated in the ICU. Patient is comfortably sitting in a chair states that her breathing is improving gradually. She denies having any chest pain or palpitations. No cough or hemoptysis. She denies having any swelling or for lower extremities. No abdominal pain nausea vomiting or diarrhea. She denies having any dysuria or hematuria, she has a Bryan's catheter in place. On reviewing her vitals temperature 98.1 heart rate 75 is 5817, blood pressure 1:30 bradycardia. Saturating at 96% on a Aervo -60%. On 04/18/2020 - patient was seen and examined in the ICU. Patient is sitting in a chair by the bedside, states that her breathing has worsened compared to yesterday. Patient is on high flow Airvo, saturating in the low 90s. She denies having any chest pain or palpitations. She complains of cough that is nonproductive. Patient had a chest x-ray done showing stable bilateral air space disease. As the patient was having few episodes of tachycardia, she was started on Lopressor this morning. Patient's inflammatory markers are noted to be high. On reviewing her vitals saturating at 90% on high flow Airvo, heart rate 70s to 80s, respiratory rate 20-25, blood pressure 106-67. In reviewing her labs white count of 29.3, hemoglobin 16.8, platelets 369. D-dimer 6.99, LDH 2969, CRP 63.9. On 04/19/2020 - patient is seen and examined in the ICU. She is currently on BiPAP, as her respiratory status has worsened compared to yesterday. Patient denies having any chest pain or palpitations. No abdominal pain nausea vomiting or diarrhea. No dysuria or hematuria. She is on BiPAP 14/6 and 100% FiO2. On reviewing her vitals temperature is 99.2, respiratory rate is 25, heart rate 70, blood pressure 10 9 x 71. Reviewing the labs white count of 27.3, hemoglobin 17.4, platelets 314. Sodium 133, potassium 4.4, chloride 90, bicarbonate 35, BUN 31, creatinine 0.72. Ferritin 3195, CRP 217 and LDH 2747. 04/20/2020 This is a pleasant 69 years old female with multiple medical problems was adm itted for bilateral Covid pneumonia, she is currently on aervo at 90%/60 L of oxygen, saturating 89%. Rest of Vitas looks stable Also she is on BiPAP All the night. She is able to eat and drink, no pressors She is on normal saline at 75 mL/h with adequate urine output Patient is currently ON Medrol 40 mg twice daily, Lovenox 60 mg twice Mary and vitamin C and zinc. She finished her remdisvir and convelecent plasma. 04/21/2020 Patient remains in the ICU bed and respiratory support for her bilateral Covid pneumonia. She still dyspneic especially with exertion and she still needs BiPAP during the day shift. Also she had a fever today of 102.2. Patient is empirically on Zosyn/calcitonin check today showing normal level at 0.07. She has leukocytosis of 29K. I agree with Zosyn and I recommended to continue with that for now. Also patient is on steroids 60 mg every 6 hours. As there is no more significant progress progress in her clinical picture Glucose is 123 and inflammatory markers still elevated 04/22/2020 this is a pleasant 69 yo F who is admitted to the ICU for covid pneumonia, she is still on BiPAP dependant , TNP is started for her nutrition for this reasone. her oxygen saturation is on low 90s% cxr: diffuse interstitial opacities and worsening airspace disease in the left lower lung. consider interstitial edema wbc is sligtly less 26K, she is currently continued on zosyn , and solumedrol 60 mg. and normal saline increased to 150 ml/hr. and lovenox 60 mg BID she finised her Remdisvir and convelescent Plasma. 04/23/2020 Patient looks very tired, she came Off the BiPAP today morning and she was placed back on airvo at 60 L she is back and forth between BiPAP and airvo, however she probably will need BiPAP at night Inflammatory markers and d-dimer increased, ferritin 3100 up to 3700 and d-dimer 3 up to 5 Chest x-ray showing bilateral middle and lower infiltrates with slight improvement Treatments with antibiotics Zosyn, fluconazole was added today. Also she is also on Solu-Medrol 60 mg, normal sling was decreased to 50 mL per hour, Lovenox 60 mg twice daily, TPN and she is on vitamin C and zinc 04/24/2020 Patient today her clinical condition deteriorated, she was hypoxic this morning with oxygen saturation in the 70s percent and she was tachycardic with heart rate 140-150, patient ended up being intubated in the morning and she was in an you onset of A. fib and started on Cardizem drip on 15 mg however her heart rate was still elevated, cardiology team were consulted, blood pressure was on the low normal side. Amiodarone drip was started. Cardiology team and Cardizem drip was shut to 15 mg/h. Also insulin drip for hyperglycemia with sugar more than 300. 04/25/2020 Patient was intubated yesterday for deteriorated respiratory status, ABG showing elevated pCO2 on 496 with acidosis. 7.0 and 7.1. Oxygen saturation is acceptable at 107. She remains on mechanical ventilation managed by pulmonary/critical care team, currently her bruits and draped with before meals at 40 to help with her acidosis. Her creatinine worsened today 0.5 up to 1.3, with potassium elevated as well as 5.5 nephrology team were consulted who ordered insulin/dextrose 50%, sodium bicarb 1 and Lasix 80 mg 1. Supervisory Geographer recommended hemodialysis and no improvement in 24 hours Chest x-ray showing pneumonia and edema which is stable from yesterday. Sugar improved and we could switch her insulin drip to insulin sliding scale A. fib is improved and converted to sinus rhythm with amiodarone which is switched to [employer] Now per Supervisor [employer], She Is Already on Anticoagulation 04/26/20 Patient remains in the ICU sedated and intubated with pulmonary/ critical care team following the case closely. Showing trending down leukocytosis to 20 6.1K. Creatinine up to 2.8, Patient is developing anuria with acute kidney injury, nephrology evaluation is appreciated and hemodialysis is initiated. Chest x-ray showing interstitial infiltrate especially in the mid to lower lungs Echocardiogram showed ejection fraction of 55-60%, and atrial fibrillation i mproved yesterday with amiodarone She remains on Solu-Medrol, Zosyn and fluconazole, normal sinus 50 and vitamin C and zinc Lovenox dose was adjusted to renal function down to 50 mg daily Prognosis remains guarded 04/27/2020 Patient with bilateral: With pneumonia that her purse and eventually got i ntubated, pulmonary/critical care team and several consultants are following the case, vent management as per pulmonary team. She has leukocytosis of 13.8 K. Creatinine today is 3.37 Patient undergoing hemodialysis for the last 2-3 days for acute kidney injury and [facility] Patient A. fib heart rate becomes uncontrolled today and her amiodarone to switch to a drip. Other medication including Solu-Medrol 60 mg, vitamin C and zinc, Zosyn and fluconazole, she is on normal saline at 50 mL/h and Lovenox dose dropped to 30 mg daily 04/28/2020 Patient remains intubated and sedated in the ICU, followed closely by critical care team. Vital showing tachycardia and tachypnea. WBC is 30 3.5K. Cre atinine 3.8, sodium 134. Sugar is controlled. Inflammatory markers are elevated. She is undergoing hemodialysis today Chest x-ray from today showing no change from last one yesterday Medication-hernandez he remains on Solu-Medrol, Zosyn, 30 mg of Lovenox daily which is renal dose and amiodarone drip. Normal saline at 50 mm was discontinued today 04/29/2020 This is a pleasant 69 years old female with bilateral, with pneumonia. Patient remains in the ICU sedated and intubated with pulmonary/critical care team following the case closely. Normal sedation holiday for the patient currently She already finished her treatment with remdesivir and convalescent plasma, and currently she is on vitamin C and zinc. She was on steroids in the form of high dose of Solu-Medrol 60 mg and Zosyn and fluconazole for possible bacteria and fungal infection associated with viral infection. Patient course was complicated by renal failure and new or so she underwent hemodialysis, last HD was yesterday, she is kept on renal dose of Lovenox 30 mg daily. Other complication is atrial fibrillation with RVR which is currently controlled with oral amiodarone and low-dose of Cardizem drip. Patient condition remains critical and she kept on mechanical ventilation with close monitoring Procalcitonin is unchanged yesterday at 0.39 compared to one week ago at 0.39. We'll order another test tomorrow 05/01/20 Patient remains in the ICU intubated on mechanical ventilation with pulmonary/critical care team following closely. Patient today underwent sedation holiday and into hours she started becoming agitated and developed atrial fibrillation's with RVR, she has to be placed back on amiodarone drip and Cardizem drip 10 mg per hour before it was converted to sinus rhythm again Currently she is tachypneic with a breathing rate around 32. She is saturating 91% on FiO2 of 60% Leukocytosis 27.9 yesterday and 24.6K today. D-dimer stable at 3.7 so she kept on the same dose of Lovenox Inflammatory markers including LDH, protein and C-reactive protein went up slightly today. Patient remains anuric and undergoing hemodialysis She remains on Zosyn and fluconazole, she got 2 doses of IV vancomycin yesterday and today. Also she is on zinc and vitamin C, Lovenox 30 mg daily. Diflucan was stopped Review of systems N/a Active Medications Generic Name Dose Route Start Last Admin Trade Name Freq PRN Reason Stop Dose Admin Acetaminophen 650 mg 04/11/20 16:48 04/21/20 04:34 Acetaminophen Tab 325 Mg Tab PO 650 mg Q6HR PRN Administration Mild Pain or Fever > 100.5 Albuterol Sulfate 2 puff 04/25/20 16:00 04/29/20 10:50 Albuterol Hfa Inhaler INHALATION 2 puff RT-QID PERRY Administration Amiodarone HCl 200 mg 04/29/20 09:00 04/29/20 09:06 Amiodarone 200 Mg Tab PO 200 mg BID PERRY Administration Ascorbic Acid 250 mg 04/12/20 09:00 04/29/20 09:05 Ascorbic Acid 500 Mg Tab PO 250 mg DAILY PERRY Administration Chlorhexidine Gluconate 15 ml 04/24/20 21:00 04/29/20 09:05 Chlorhexidine Gluconate 15 Ml Cup MUCOUS MEM 15 ml BID PERRY Administration Cholecalciferol 25 mcg 04/27/20 10:30 04/29/20 09:05 Cholecalciferol 25 Mcg (1000 Iu) Tablet PO 25 mcg DAILY PERRY Administration Enoxaparin Sodium 30 mg 04/27/20 09:00 04/29/20 09:05 Enoxaparin 30 Mg/0.3 Ml Syringe SQ 30 mg DAILY PERRY Administration Famotidine 20 mg 04/27/20 09:00 04/29/20 09:05 Famotidine 20 Mg Tab OG-TUBE 20 mg Q24HR PERRY Administration Folic Acid 1 mg 04/12/20 12:00 04/29/20 09:06 Folic Acid 1 Mg Tab PO 1 mg DAILY@1200 PERRY Administration Hydromorphone HCl 1 mg 04/24/20 16:50 04/26/20 10:55 Hydromorphone 1 Mg/Ml 1 Ml Syringe IVP 1 mg Q2HR PRN Administration Pain Fluconazole/Sodium Chloride 50 mls @ 50 mls/hr 04/23/20 09:15 04/29/20 09:06 100 mg/ IV Solution IVPB 50 mls/hr DAILY PERRY Administration Propofol 1,000 mg/ IV Solution 100 mls @ 0 mls/hr 04/24/20 08:45 04/29/20 12:38 IV 40 mcg/kg/min .Q0M PERRY 27.264 mls/hr Administration Protocol Titrate Cisatracurium Besylate 200 mg/ 200 mls @ 12.516 mls/hr 04/24/20 16:15 04/29/20 08:56 Sodium Chloride IV Not Given .[id number] PERRY Protocol 2 MCG/KG/MIN Piperacillin Sod/Tazobactam 100 mls @ 25 mls/hr 04/26/20 12:00 04/29/20 12:38 Sod 3.375 gm/ Sodium Chloride IVPB 25 mls/hr Q12H PERRY Administration Diltiazem HCl 125 mg/ Sodium 125 mls @ 10 mls/hr 04/26/20 17:30 04/29/20 12:38 Chloride IV 15 mg/hr .[id number] PERRY 15 mls/hr Administration 10 MG/HR Fentanyl Citrate 1,000 mcg/ 100 mls @ 0 mls/hr 04/28/20 09:00 04/29/20 00:22 Sodium Chloride IV 0.5 mcg/kg/hr .Q0M PERRY 5.77 mls/hr Administration Protocol Per Protocol Insulin Aspart 0 unit 04/25/20 12:00 04/29/20 12:39 Insulin Aspart (Novolog) 100 Unit/Ml Vial SQ 3 unit Q4H PERRY Administration Protocol Levothyroxine Sodium 50 mcg 04/12/20 06:30 04/29/20 06:05 Levothyroxine 50 Mcg Tab PO 50 mcg DAILY@0630 PERRY Administration Melatonin 5 mg 04/19/20 19:45 04/19/20 20:08 Melatonin 5 Mg Tablet PO 5 mg HS PRN Administration Insomnia Methylprednisolone Sodium Succinate 60 mg 04/21/20 12:00 04/29/20 12:38 Methylprednisolone Sod Succi 125 Mg/2 Ml Vial IV 60 mg Q6HR PERRY Administration Miscellaneous Information 1 each 04/24/20 18:43 Potassium Replacement Protocol 1 Each Misc MISCELLANE DAILY PRN Per Protocol Protocol Morphine Sulfate 2 mg 04/23/20 08:34 04/26/20 16:07 Morphine Sulfate 2 Mg/Ml Syringe IVP 2 mg Q6H PRN Administration Pain/Discomfort Multivitamins 1 each 04/12/20 12:00 04/29/20 09:06 Multivitamins, Thera 1 Each Tab PO 1 each DAILY@1200 PERRY Administration Naloxone HCl 0.2 mg 04/11/20 16:48 Naloxone 0.4 Mg/Ml 1 Ml Vial IV Q2M PRN Opioid Reversal Ondansetron HCl 4 mg 04/15/20 20:08 Ondansetron 4 Mg/2 Ml Vial IVP Q6HR PRN Nausea And Vomiting Thiamine HCl 100 mg 04/12/20 12:00 04/29/20 12:38 Thiamine 100 Mg Tab PO 100 mg DAILY@1200 PERRY Administration Zinc Sulfate 220 mg 04/12/20 09:00 04/29/20 09:05 Zinc Sulfate 220 Mg Cap PO 220 mg DAILY PERRY Administration Objective - Vital Signs Vital signs: Vital Signs Temp 97.8 F 05/01/20 16:00 Pulse 60 05/01/20 19:00 Resp 32 H 05/01/20 19:00 BP 142/62 05/01/20 19:00 Pulse Ox 91 L 05/01/20 19:00 Intake & Output 05/01/20 05/01/20 05/02/20 06:59 18:59 06:59 Intake Total 924.706 853.666 50 Output Total 100 3061 2 Balance 824.706 2207.334 48 Weight 120.3 kg Intake: IV 276 276 23 0.9 KVO 240 240 20 Clements flush 36 36 3 Intake, IV Titration 648.706 383.666 Amount Amiodarone 360 mg In 100 Dextrose 5% in Water 200 ml @ 1 MG/MIN 33.333 mls/ hr IV .Q6H [facility] Rx#: [id number] Diltiazem 125 mg In 125 83.666 Sodium Chloride 0.9% 100 ml @ Per Protocol IV .Q0M [facility] Rx#:[id number] Norepinephrine 8 mg In 66.219 Sodium Chloride 0.9% 250 ml @ 0.05 MCG/KG/MIN 11. 417 mls/hr IV .[id number] [facility] Rx#:[id number] fentaNYL (PF) 1,000 mcg 192.705 100 In Sodium Chloride 0.9% 80 ml @ Per Protocol IV . Q0M [facility] Rx#:[id number] propofoL 1,000 mg In 264.782 100.000 Empty Bag 1 bag @ Titrate IV .Q0M [facility] Rx#: [id number] Tube Feeding 134 27 Other 60 Output: Gastric Drainage 100 Urine 0 61 2 Hemodialysis 3000 Other: Voiding Method Indwelling Catheter Indwelling Catheter ABP, PAP, CO, CI - Last Documented Arterial Blood Pressure 110/39 - Exam -GENERAL: The patient is intubated and sedated HEENT: Pupils are round and equally reacting to light. EOMI. No scleral icterus. No conjunctival pallor. Normocephalic, atraumatic. No pharyngeal erythema. No thyromegaly. CARDIOVASCULAR: S1 and S2 present. No murmurs, rubs, or gallops. -PULMONARY: Chest is clear to auscultation, bilateral crepitation ABDOMEN: Soft, nontender, nondistended, normoactive bowel sounds. No palpable organomegaly. MUSCULOSKELETAL: No joint swelling or deformity. EXTREMITIES: No cyanosis, clubbing, or pedal edema. NEUROLOGICAL: Gross neurological examination did not reveal any focal deficits. SKIN: No rashes. no petechiae. - Labs CBC & Chem 7: 05/01/20 04:35 05/01/20 04:35 Labs: Abnormal Lab Results - Last 24 Hours (Table) 04/30/20 04/30/20 05/01/20 Range/Units 20:23 23:33 04:35 WBC 24.6 H (3.8-10.6) k/uL RBC 3.78 L (3.80-5.40) m/uL Neutrophils # 23.5 H (1.3-7.7) k/uL Lymphocytes # 0.3 L (1.0-4.8) k/uL D-Dimer (<0.60) mg/L FEU ABG pH (7.35-7.45) ABG pCO2 (35-45) mmHg ABG pO2 (83-108) mmHg ABG Total CO2 (19-24) mmol/L ABG O2 Saturation (94-97) % Sodium (137-145) mmol/L Potassium (3.5-5.1) mmol/L BUN (7-17) mg/dL Creatinine (0.52-1.04) mg/dL Glucose (74-99) mg/dL POC Glucose (mg/dL) 116 H 137 H (75-99) mg/dL Calcium (8.4-10.2) mg/dL Ferritin (10.0-291.0) ng/mL AST (14-36) U/L ALT (4-34) U/L Lactate Dehydrogenase (313-618) U/L C-Reactive Protein (<10.0) mg/L Total Protein (6.3-8.2) g/dL Albumin (3.5-5.0) g/dL Triglycerides (<150) mg/dL 05/01/20 05/01/20 05/01/20 Range/Units 04:35 04:35 04:35 WBC (3.8-10.6) k/uL RBC (3.80-5.40) m/uL Neutrophils # (1.3-7.7) k/uL Lymphocytes # (1.0-4.8) k/uL D-Dimer 3.75 H (<0.60) mg/L FEU ABG pH (7.35-7.45) ABG pCO2 (35-45) mmHg ABG pO2 (83-108) mmHg ABG Total CO2 (19-24) mmol/L ABG O2 Saturation (94-97) % Sodium 134 L (137-145) mmol/L Potassium 5.4 H (3.5-5.1) mmol/L BUN 81 H (7-17) mg/dL Creatinine 3.98 H (0.52-1.04) mg/dL Glucose 146 H (74-99) mg/dL POC Glucose (mg/dL) (75-99) mg/dL Calcium 7.5 L (8.4-10.2) mg/dL Ferritin 2816.4 H (10.0-291.0) ng/mL AST 165 H (14-36) U/L ALT 211 H (4-34) U/L Lactate Dehydrogenase 1374 H (313-618) U/L C-Reactive Protein 21.0 H (<10.0) mg/L Total Protein 4.6 L (6.3-8.2) g/dL Albumin 2.2 L (3.5-5.0) g/dL Triglycerides 285 H (<150) mg/dL 05/01/20 05/01/20 05/01/20 Range/Units 04:43 05:25 09:00 WBC (3.8-10.6) k/uL RBC (3.80-5.40) m/uL Neutrophils # (1.3-7.7) k/uL Lymphocytes # (1.0-4.8) k/uL D-Dimer (<0.60) mg/L FEU ABG pH 7.28 L (7.35-7.45) ABG pCO2 51 H (35-45) mmHg ABG pO2 69 L (83-108) mmHg ABG Total CO2 26 H (19-24) mmol/L ABG O2 Saturation 92.6 L (94-97) % Sodium (137-145) mmol/L Potassium (3.5-5.1) mmol/L BUN (7-17) mg/dL Creatinine (0.52-1.04) mg/dL Glucose (74-99) mg/dL POC Glucose (mg/dL) 139 H 138 H (75-99) mg/dL Calcium (8.4-10.2) mg/dL Ferritin (10.0-291.0) ng/mL AST (14-36) U/L ALT (4-34) U/L Lactate Dehydrogenase (313-618) U/L C-Reactive Protein (<10.0) mg/L Total Protein (6.3-8.2) g/dL Albumin (3.5-5.0) g/dL Triglycerides (<150) mg/dL 05/01/20 05/01/20 Range/Units 12:14 16:17 WBC (3.8-10.6) k/uL RBC (3.80-5.40) m/uL Neutrophils # (1.3-7.7) k/uL Lymphocytes # (1.0-4.8) k/uL D-Dimer (<0.60) mg/L FEU ABG pH (7.35-7.45) ABG pCO2 (35-45) mmHg ABG pO2 (83-108) mmHg ABG Total CO2 (19-24) mmol/L ABG O2 Saturation (94-97) % Sodium (137-145) mmol/L Potassium (3.5-5.1) mmol/L BUN (7-17) mg/dL Creatinine (0.52-1.04) mg/dL Glucose (74-99) mg/dL POC Glucose (mg/dL) 136 H 152 H (75-99) mg/dL Calcium (8.4-10.2) mg/dL Ferritin (10.0-291.0) ng/mL AST (14-36) U/L ALT (4-34) U/L Lactate Dehydrogenase (313-618) U/L C-Reactive Protein (<10.0) mg/L Total Protein (6.3-8.2) g/dL Albumin (3.5-5.0) g/dL Triglycerides (<150) mg/dL Microbiology - Last 24 Hours (Table) 04/30/20 12:20 Blood Culture - Preliminary Blood No Growth after 24 hours Assessment and Plan Assessment: COVID 19 pneumonia Acute hypoxic respiratory failure-status post intubation and mechanical ventilation New onset A. fib with RVR Acute kidney injury with anurea status post hemodialysis Increased d-dimer without evidence of PE Hyponatremia Leukocytosis Elevated inflammatory markers Hypertension Hypothyroidism History of bilateral posterior tibial tendon repair Obesity with BMI of 35 Plan: This is a pleasant 69 years old female with Covid pneumonia and hypoxic respiratory failure. Continue with oxygen supplementation as needed, intubated on mechanical ventilation with pulmonary/critical care team and follow the case closely. Monitor inflammatory markers. Continue with Solu-Medrol and Lovenox and zinc and vitamin C. continue with Lovenox, continue tube feeding, continue with antibiotics and steroids. Also she is on amiodarone start hemodialysis per nephrology team recommended Monitor WBC and kidney function Labs and medication were reviewed.. Continue same treatment. Continue with symptomatic treatment. Resume home medication. Monitor lytes and vitals. DVT and GI prophylaxis. Further recommendations as per clinical course of the patient DVT prophylaxis: Subcutaneous Lovenox GI Prophylaxis: Pepcid Prognosis is guarded
--- NOTE | 2020-05-01 19:25 | PN ---
PROGRESS NOTE DATE OF SERVICE: 05/01/2020. REASON FOR CONSULTATION: Pneumonia. INTERIM HISTORY: The patient is currently afebrile. The patient is hemodynamically stable, not on any pressor support. FiO2 is currently at 60%. she did have problem with Afib with RVR. No worsening output in the fecal management system. PHYSICAL EXAMINATION: Blood pressure 142/62 with a pulse of 60. Temperature 97.8. She is 100% on 50% FiO2. General description is an elderly female intubated on the vent. Respiratory system: Unlabored breathing with diminished breath sounds in the bases. HEART: S1, S2. Regular rate and rhythm. ABDOMEN: Soft. EXTREMITIES: No edema of the feet. LABS: Hemoglobin 11.5, white count 4.6, BUN of 81, creatinine 3.98. DIAGNOSTIC IMPRESSION AND PLAN: Patient with acute respiratory failure which is multifactorial in this patient who did have Covid 19 pneumonia and has completed her Remdesivir therapy, currently covered on empiric, antifungal and antibiotics along with Zosyn to continue while monitoring clinical course closely. Prognosis remains to be guarded. MMODL / IJN: [id number] / KELSIE
[2020-05-01] MEDS: AMIODARONE 450 MG in DEXTROSE 5% IN WATER 250 ML IV SCH ×2 (19:42)
[2020-05-01 20:00] LABS: Glucose,Whole Blood 166 mg/dL (75-99)
[2020-05-01 23:40] LABS: Glucose,Whole Blood 162 mg/dL (75-99)
[2020-05-02] MEDS: fentaNYL (PF) 1,000 MCG in SODIUM CHLORIDE 0.9% 80 ML IV SCH ×3 (00:34→20:20)
[2020-05-02 05:06] LABS: Glucose,Whole Blood 136 mg/dL (75-99)
[2020-05-02 05:16] LABS: HCT 32.9 % (34.0-46.0); HGB 10.7 gm/dL (11.4-16.0); MCH 30.7 pg (25.0-35.0); MCHC 32.4 g/dL (31.0-37.0); MCV 94.9 fL (80.0-100.0); Mean Platelet Volume 8.6; Platelet Count 173 k/uL (150-450); RBC 3.47 m/uL (3.80-5.40); RDW 13.7 % (11.5-15.5); WBC 22.4 k/uL (3.8-10.6)
[2020-05-02 05:19] LABS: ABG Base Excess -3.5 mmol/L; ABG HCO3 23 mmol/L (21-25); ABG Oxygen Saturation 92.7 % (94-97); ABG PCO2 51 mmHg (35-45); ABG PH 7.27 (7.35-7.45); ABG PO2 69 mmHg (83-108); ABG TCO2 25 mmol/L (19-24); Allen Test Performed? Yes
[2020-05-02 05:29] LABS: Albumin 2.1 g/dL (3.5-5.0); C Reactive Protein 16.4 mg/L (<10.0); Calcium 7.5 mg/dL (8.4-10.2); Potassium 5.2 mmol/L (3.5-5.1); Total Bilirubin 0.5 mg/dL (0.2-1.3); Total Protein 4.5 g/dL (6.3-8.2)
[2020-05-02] MEDS: NOREPINEPHRINE 8 MG in SODIUM CHLORIDE 0.9% 250 ML IV SCH (05:36)
[2020-05-02] MEDS: methylPREDNISolone SOD SUCCI 125 MG/2 ML VIAL IV SCH ×3 (05:51→17:29)
[2020-05-02] MEDS: LEVOTHYROXINE 50 MCG TAB PO SCH (05:51)
[2020-05-02] MEDS: INSULIN ASPART (NovoLOG) 100 UNIT/ML VIAL SQ SCH ×5 (05:51→20:57)
[2020-05-02] MEDS: ALBUTEROL HFA INHALER INHALATION SCH ×4 (07:19→19:45)
--- NOTE | 2020-05-02 07:49 | XR ---
EXAMINATION TYPE: XR chest 1V portable DATE OF EXAM: 05/02/2020 COMPARISON: 05/01/2020 INDICATION: : Difficulty breathing TECHNIQUE: Single frontal view of the chest is obtained. FINDINGS: The heart size is normal. The pulmonary vasculature is normal. Patchy bibasilar infiltrates are present greater on the left. This is improving from comparison. Endotracheal tube tip is above antwon. Nasogastric tube transverses the thorax IMPRESSION: 1. Improving bibasilar infiltrates
--- NOTE | 2020-05-02 08:06 | P.PN ---
Subjective Progress Note Date: 05/02/20 This 69-year-old white female patient who was admitted to the hospital on 04/11/2020 when she came in for evaluation of 1 week history of cough, fever, shortness of breath, decreased appetite and intermittent episodes of diarrhea. Patient was diagnosed with COVID 19 pneumonia, this was done via outpatient testing through the health Department. Patient initially presented at [facility], she was hypoxemic with a pulse ox in the 80s and she was placed on high flow oxygen and transferred to the [facility]. CT angiogram of the chest showed no evidence of pulmonary embolism, however it showed evidence of bilateral interstitial infiltrates consistent with COVID 19 pneumonitis. Patient completed her Remdesivir treatment on 04/16/2020, she received 2 units of convalescent plasma, she remains on IV steroids with IV Solu-Medrol. In view of her worsening hypoxemia patient was transferred to the intensive care unit, she is intubated on 04/24/2020 The patient is seen today 04/26/2020 and follow-up in the intensive care unit. She remains intubated on the mechanical ventilator. She was intubated on 04/24/2020 . Current settings are assist-control of 40, tidal volume 400, FiO2 60% and a PEEP of 15. Blood gases that a pH of 7.36 with a pCO2 of 50 and pO2 of 67. Chest x-ray from today is showing bilateral pulmonary infiltrates, interstitial and diffuse. ET tube is in a good location. I do not see any major interval change in her chest x-ray findings or the past 48 hours. She remains on 0.9 normal saline at 50 MLS per hour. Propofol at 50 mcg/kg/m. Nimb ex at 1.0 L micrograms per kilogram per minute. She is on amiodarone at 0.5 mg/m for AFIB/SVT. Her rate is better controlled today. She has a normal sinus rhythm for now and she is on po amiodarone. Chest x-ray with similar findings of bilateral groundglass opacity, air space disease which is stable compared to previous. She has received 2 units of convalescent plasma. She completed Remdesivir. Blood cultures reveal no growth. Urine culture revealed no growth. She was given IV Zosyn empirically. Remains on Solu-Medrol 60 mg every 6.Of significance is also development of an acute kidney injury. The patient's urine output is less than 5 mL an hour. Creatinine came up from a baseline of 0 point up to 1.34 and later on to 2.8. Nephrology is on the case. Ultrasound the kidneys was negative. Dialysis cath will be inserted today. Today's evaluation of 04/27/2020, I am seeing the patient for a follow-up. As mentioned earlier, this is a case of coronary via/fluid 19 related pneu monia/ARDS and the patient remains intubated on a mechanical ventilator. This morning, she is assist-control mode at the rate of 32 with a tidal volume of 100 and FiO2 of 60% with a PEEP of 15. The blood gases from today shows a pH of 7.21 with a pCO2 of 64 and pO2 of 70. The patient is very much success with the mechanical ventilator. The patient is still on propofol running at 40 mcg/kg per minute. She is also on Nimbex and she is paralyzed in the maxillary running at 1 mcg/kg per minute. I think it's time to give the patient a paralytic holiday today. Her peak airway pressure on a mechanical ventilator is in order of 33 with a static pressure of around 30. The chest x-ray from today is showing a bilateral pulmonary infiltrates which is more so in the lower lobes bilaterally. No major interval change compared to yesterday. ET tube is in a good location. NG tube was also within the stomach and is also in a good location. IV fluids are running in the form of 0.9 at the rate of 50 mL an hour. The neck fluid balance over the past 24 hours is +1.9 L and 4.1 L earlier than 3.0 L earlier. As such the patient has been a significant positive fluid balance pH is undergoing hemodialysis in the last bout of hemodialysis was yesterday. A total of 1 L of fluid was removed. I think ultrafiltration is to be somewhat aggressively. The white cell count is at 30 the creatinine today is at 3.37 with a BUN of 71. The patient also has a white cell count of 30. Hemoglobin is at 14.7. Enteral feeding for nutritional support is running and the patient is on Nepro. Inflammatory markers today showed a CRP of 40 which is lower compared to yesterday. LDH is still pending. Last LDH level was elevated at 2444 and a progressive on 11 was 0.39 which is essentially low knowing that the patient has an underlying acute kidney injury. The patient's cardiac rhythm is A. fib and the rate is ranging between 100 and 120. The patient is currently on amiodarone at 1 mg/m 04/28/2020, the patient remains intubated on a mechanical ventilator. The patient has a Covid 19 related pneumonia/ARDS. On today's evaluation, the patient is on propofol running at 50 mcg/kg per minute. The patient seems to be off the paralytics since yesterday. On today's evaluation, she was breathing quite rapidly and she was tachypneic and the pulses was in the mid 80s. Earlier this morning showed an assist-control mode of mechanical ventilation at the rate of 32 with a tidal volume of 400 and FiO2 of 65% with a PEEP of 15. The blood gases from today showed a pH of 7.31 with a pCO2 of 50 and pO2 of 61. Chest x- ray shows limited infiltration of the lung bases bilaterally. The white cell co unt was at 33.5. Hemoglobin is 13.4. The d-dimer is at 3.82. The LDH level is down to 1581. The CRP level is down to 21.9. The patient is not making any urine. Urine output is minimal at one time. BUN is at 63 with a creatinine of 3.8 and the rest of the electrolytes are all within normal limits. The patient is receiving her first session of hemodialysis today. Meanwhile, the patient remains on a A. fib rhythm and the patient is on amiodarone at 1 mg per minute and the patient is also on Cardizem running at 15mg an hour. She is less tachycardic while on treatment. Also, the patient is feeding for nutritional support and the patient is on vital high protein running at the rate of 27 mL an hour. The patient remains on Solu-Medrol at a dose of 60 mg every 6 hours, we were considering Actemra , and based on our discussion with the pharmacy, and based on the availability of the medication and its limited criteria for use, we were not able to deliver the medication to this patient. On 04/29/2020, the patient remains intubated on a mechanical ventilator. I have elected discussion with the nephew who is a retired physician. He expressed wishes to transfer for at least consider other interventions such as ECMO on this patient. I personally think that she is not a candidate for this type of treatment. I contacted the [facility] team and the chamber was declined. The nephew was informed to. Meanwhile, I continue to support this patient. Intensive care unit. The patient remains in acute hypoxic respiratory failure secondary to Covid 19 related pneumonia/ARDS. She remains sedated with propofol running at the micrograms and I'm in the process of weaning the propofol to a lesser degree of sedation. At the same time, the patient is on fentanyl running at 50 mcg/h. The patient remains on a tidal volume of 400 with an FiO2 of 70% with a PEEP of 5 and the respiratory of 26. The morning blood gases showed a pH of 7.24 with a pCO2 of 56 and pO2 of 75. Chest x-ray showing diffuse bilateral pulmonary infiltrates, probably slightly worse compared to yesterday. She remains on IV Solu-Medrol. Markers from today shows a LDH level of 1281, her CRP level is down to 17.8. The pro calcitonin level was at 0.39. Hemodynamically, the patient is still on a combination of Cardizem and amiodarone drip. Cardizem is running at 50 mg an hour and amiodarone drip is at 0.5 mg per minute and her heart is on a under much better control for now. Amiodarone can be switched to oral. The patient is also on IV fluids at 20 mL an hour. Her last bout of hemodialysis was yesterday with ultrafiltration of 1 L. I think she'll be given a break of dialysis. Her urine output is 5 ML's over the past 4 hours. Bryan cath is in place. She is afebrile. Enteral f eeding for nutritional support in the form of vital high protein at the rate of 27 mL an hour. She is tolerating his tube feeds. He is having some liquidy bowel movements. Stool for C. diff was negative. No abdominal distention. No other significant events overnight otherwise. 04/30/2020, the patient is still doing the same while intubated on a mechanical ventilator. In fact this morning, the patient had issues with hypotension. Pressors were started and during dialysis the patient became further hypotensive and the levo fed was increased up to 0.3 mcg/kg per minute. In summary, the p ben's condition today is quite critical. The patient is sedated with propofol at a rate of 75 mcg/kg per minute and fentanyl with 1 mcg/kg/h. The patient is well sedated. She is up paralytics patient had an assist-control mode of ventilation at the rate of 26 with a tidal volume of 400 and FiO2 of 65% with a PEEP of 15. Her peak airway pressure is around 34 with a static pressure of around 31. The morning blood gases showed a pH of 7.13 with a pCO2 of 65 and pO2 of 78. The patient has stable chest x-ray with diffuse bilateral pulmonary infiltrates unchanged compared to yesterday. She remains in atrial fibrillation. Amiodarone drip was discontinued and the patient was placed on Klonopin milligrams amiodarone orally twice a day. She is also on Cardizem drip which is running at 5 mg an hour. The patient is on normal saline at rate of 20 mL an hour. She was supposed to get dialysis with ultrafiltration. The ultrafiltration was aborted as the patient became quite hypotensive and her pressor requirements went up. She remains on IV Solu Medrol 60 mg every 6 hours. She remains on aggressive the vitamin supplements regarding the Covid 19 related pneumonia. Her last echo was at 27.9. Hemoglobin was at 12.7. D-dimer is at 3.04, the LDH level was 1233 and the CRP level is down to 10.2. LEVEL IS AT 0.39 FROM FEW DAYS AGO AND THIS WILL BE REPEATED. . She is afebrile. She remains on the same antibiotic coverage. The patient is on a combination of Zosyn and Diflucan. She also has a PICC line in left upper extremity. Lovenox is running at 30 mg subcu every 24 hours. She is tolerating her enteral feeding for nutritional support. She is receiving vital high protein. She is tolerating her few feeds. Stool for C. diff has been negative as the patient was having some liquidy stool. No abdominal distention. 3 2020, the patient remains sedated with propofol running at 30 mcg/kg per minute and fentanyl at 1 mcg/kg/h. Her sedation level is adequate for now. She grimaces to deep painful stimulation. She is still on a mechanical ventilator. She is on assist-control at the rate of 32 with a tidal volume of 400 and FiO2 of 60% with a PEEP of 15. Peak airway pressures 32. Static pressures 30. Chest x-ray is unchanged. No orotracheal secretions. Her periods from today showed a pH of 7.28 with a pCO2 of 51 and pO2 of 69. Rest of the blood work essentially stable. The white cell count is lower at 24.6. D-dimer is down to 3.75 and the patient's rest of the inflammatory markers show a LDH of 1374 which is slightly elevated compared to yesterday and CRP of 20.0 which is also slightly elevated compared to yesterday. She is afebrile. She converted into normal sinus rhythm. She is on 10 mg of Cardizem drip and this will be gradually weaned off. She is on amiodarone 200 mg twice a day. We have noticed some rise in her liver function tests and based on today's values the ALT is up to 211 and AST is up to 165. The total bilirubin is at 0.6. She was having difficulties in tolerating her enteral feeding yesterday and that were placed on hold. The increase in residual was noted. We are going to restart the tube feeds as the output from the NG tube is minimal and the patient's bowel sounds although hypoactive they're still present. She has a PICC line in the left upper extremity. The functionality of the temporary dialysis catheter is in question and the vascular surgeon with the evaluate the situation. The patient was dialyzed yesterday without ultrafiltration. She became hemodynamically unstable during dialysis. Currently she is off pressors and dialyzes will be reconsidered. Protein S troponin level is down and the patient will be taken off the antibiotics positive the blood cultures of been all negative and the pat ient has been afebrile for now. No other issues. Fecal management system in the output is minimal, probably 200 since 24 hours and stool for C. diff has been negative. 05/02/2020, the patient remains intubated on a mechanical ventilator. She remains on propofol which is running at 35 mcg/kg per minute and the patient is on fentanyl running at 1 g per KG per hour. The patient is well sedated and, comfortable suggest a mechanical ventilator. Her vent settings are essentially the same. The patient is on a VC plus mode with a rate of 32 and FiO2 of 50% with a PEEP of 15 and a tidal volume of 400. Peak airway pressures 31, static pressures probably 38. Blood gas showed a pH of 7.27 with a pCO2 of 51 and pO2 of 69 and the blood is essentially stable and comparable to yesterday's value. The patient has no major secretions. The chest x-ray stable with diffuse breath and pulmonary infiltrates and there is no evidence of pneumothorax. ET tube is in good location. She remains on Solu-Medrol 60 mg every 6 hours inpatient LDH level is down to 792 and the CRP level is down to 16.4 and the d-dimer today is at 3.47. She is afebrile. She has a small amount of diarrhea and fecal catherine gement system is in place. Urine output is minimal and the patient is receiving dialysis periodically. Her last bout of dialysis was yesterday. This was done successfully. Total of 3 L of ultrafiltration was performed without causing any significant hemodynamic changes. In fact she became slightly hypoxic as the patient was being weaned off the propofol and ultimately propofol was restarted. Triglyceride levels are at 285. She is receiving enteral feeding for nutritional support. She remains on vital high protein at the rate of 27 mL an hour and she is essentially at goal. She weighs was restarted yesterday and there is no significant residuals. No emesis. She was having issues with frequent PVCs and short runs of atrial fibrillation yesterday. Based on that, cardiology restarted the patient on amiodarone drip at 0.5 mg shows and a Cardizem drip has been discontinued. Liver function tests from today shows an AST of 48, ALT of 148 and an alkaline phosphatase of 72. Objective - Vital Signs Vital signs: Vital Signs Temp 97.1 F L 05/02/20 04:00 Pulse 60 05/02/20 07:00 Resp 32 H 05/02/20 07:00 BP 93/47 05/02/20 05:00 Pulse Ox 92 L 05/02/20 07:00 Intake & Output 05/01/20 05/02/20 05/02/20 18:59 06:59 18:59 Intake Total 878.349 1075.018 50 Output Total 3061 12 Balance -2207.334 1071.018 50 Weight 119.8 kg Intake: IV 276 276 23 0.9 KVO 240 240 20 [place] flush 36 36 3 Intake, IV Titration 383.666 393.018 Amount Amiodarone 360 mg In 100 Dextrose 5% in Water 200 ml @ 1 MG/MIN 33.333 mls/ hr IV .Q6H [facility] Rx#: [id number] Diltiazem 125 mg In 83.666 Sodium Chloride 0.9% 100 ml @ Per Protocol IV .Q0M [facility] Rx#:[id number] fentaNYL (PF) 1,000 mcg 100 98.282 In Sodium Chloride 0.9% 80 ml @ Per Protocol IV . Q0M [facility] Rx#:[id number] propofoL 1,000 mg In 100.000 294.736 Empty Bag 1 bag @ Titrate IV .Q0M [facility] Rx#: [id number] Tube Feeding 134 324 27 Other 60 90 Output: Urine 61 12 Hemodialysis 3000 Other: Voiding Method Indwelling Catheter Indwelling Catheter ABP, PAP, CO, CI - Last Documented Arterial Blood Pressure 154/50 - Exam GENERAL EXAM: Intubated, sedated 69-year-old female patient, critically ill. Intubated on a mechanical ventilator and the patient is sedated and she is off paralytics for now, and the patient is currently on a combination of fentanyl and propofol for sedation. She is quite suggest the mechanical ventilator. HEAD: Normocephalic. EYES: Sluggish reaction of pupils, equal size. NOSE: Clear with pink turbinates. THROAT: Oral endotracheal and gastric tube secured in place. No erythema or exudates. NECK: No masses, no JVD. Orogastric and endotracheal tube are both in place. CHEST: No chest wall deformity. LUNGS: Equal air entry with crackles in the bilateral posterior bases. CVS: S1 and S2 normal with no audible murmur, irregular rhythm. The patient continues to be in atrial fibrillation. The rate is under much better control for now ABDOMEN: No hepatosplenomegaly, normal bowel sounds, no guarding or rigidity. SPINE: No scoliosis or deformity SKIN: No rashes CENTRAL NERVOUS SYSTEM: Sedated, tone is normal in all 4 extremities. Pupils are equal and reactive to light. No facial asymmetry. I think she is riding the mechanical ventilator and she is deeply sedated. We'll gradually wean off the propofol. EXTREMITIES: There is +1 peripheral edema in all 4 extremities. No clubbing, no cyanosis. Peripheral pulses are intact. The patient has a PICC line in left upper extremity. The patient also has a right femoral dialysis catheter in place. He is a temporary dialysis catheter. - Labs CBC & Chem 7: 05/02/20 04:50 05/02/20 04:50 Labs: Abnormal Lab Results - Last 24 Hours (Table) 05/01/20 05/01/20 05/01/20 Range/Units 04:35 04:35 09:00 WBC (3.8-10.6) k/uL RBC (3.80-5.40) m/uL Hgb (11.4-16.0) gm/dL Hct (34.0-46.0) % D-Dimer (<0.60) mg/L FEU ABG pH (7.35-7.45) ABG pCO2 (35-45) mmHg ABG pO2 (83-108) mmHg ABG Total CO2 (19-24) mmol/L ABG O2 Saturation (94-97) % Sodium (137-145) mmol/L Potassium (3.5-5.1) mmol/L BUN (7-17) mg/dL Creatinine (0.52-1.04) mg/dL Glucose (74-99) mg/dL POC Glucose (mg/dL) 138 H (75-99) mg/dL Calcium (8.4-10.2) mg/dL Ferritin 2816.4 H (10.0-291.0) ng/mL AST (14-36) U/L ALT (4-34) U/L Lactate Dehydrogenase (313-618) U/L C-Reactive Protein (<10.0) mg/L Total Protein (6.3-8.2) g/dL Albumin (3.5-5.0) g/dL Triglycerides 285 H (<150) mg/dL 05/01/20 05/01/20 05/01/20 Range/Units 12:14 16:17 19:58 WBC (3.8-10.6) k/uL RBC (3.80-5.40) m/uL Hgb (11.4-16.0) gm/dL Hct (34.0-46.0) % D-Dimer (<0.60) mg/L FEU ABG pH (7.35-7.45) ABG pCO2 (35-45) mmHg ABG pO2 (83-108) mmHg ABG Total CO2 (19-24) mmol/L ABG O2 Saturation (94-97) % Sodium (137-145) mmol/L Potassium (3.5-5.1) mmol/L BUN (7-17) mg/dL Creatinine (0.52-1.04) mg/dL Glucose (74-99) mg/dL POC Glucose (mg/dL) 136 H 152 H 166 H (75-99) mg/dL Calcium (8.4-10.2) mg/dL Ferritin (10.0-291.0) ng/mL AST (14-36) U/L ALT (4-34) U/L Lactate Dehydrogenase (313-618) U/L C-Reactive Protein (<10.0) mg/L Total Protein (6.3-8.2) g/dL Albumin (3.5-5.0) g/dL Triglycerides (<150) mg/dL 05/01/20 05/02/20 05/02/20 Range/Units 23:38 04:50 04:50 WBC (3.8-10.6) k/uL RBC (3.80-5.40) m/uL Hgb (11.4-16.0) gm/dL Hct (34.0-46.0) % D-Dimer 3.47 H (<0.60) mg/L FEU ABG pH (7.35-7.45) ABG pCO2 (35-45) mmHg ABG pO2 (83-108) mmHg ABG Total CO2 (19-24) mmol/L ABG O2 Saturation (94-97) % Sodium 133 L (137-145) mmol/L Potassium 5.2 H (3.5-5.1) mmol/L BUN 80 H (7-17) mg/dL Creatinine 3.99 H (0.52-1.04) mg/dL Glucose 139 H (74-99) mg/dL POC Glucose (mg/dL) 162 H (75-99) mg/dL Calcium 7.5 L (8.4-10.2) mg/dL Ferritin (10.0-291.0) ng/mL AST 48 H (14-36) U/L ALT 148 H (4-34) U/L Lactate Dehydrogenase 792 H (313-618) U/L C-Reactive Protein 16.4 H (<10.0) mg/L Total Protein 4.5 L (6.3-8.2) g/dL Albumin 2.1 L (3.5-5.0) g/dL Triglycerides (<150) mg/dL 05/02/20 05/02/20 05/02/20 Range/Units 04:50 04:50 05:25 WBC 22.4 H (3.8-10.6) k/uL RBC 3.47 L (3.80-5.40) m/uL Hgb 10.7 L (11.4-16.0) gm/dL Hct 32.9 L (34.0-46.0) % D-Dimer (<0.60) mg/L FEU ABG pH 7.27 L (7.35-7.45) ABG pCO2 51 H (35-45) mmHg ABG pO2 69 L (83-108) mmHg ABG Total CO2 25 H (19-24) mmol/L ABG O2 Saturation 92.7 L (94-97) % Sodium (137-145) mmol/L Potassium (3.5-5.1) mmol/L BUN (7-17) mg/dL Creatinine (0.52-1.04) mg/dL Glucose (74-99) mg/dL POC Glucose (mg/dL) 136 H (75-99) mg/dL Calcium (8.4-10.2) mg/dL Ferritin (10.0-291.0) ng/mL AST (14-36) U/L ALT (4-34) U/L Lactate Dehydrogenase (313-618) U/L C-Reactive Protein (<10.0) mg/L Total Protein (6.3-8.2) g/dL Albumin (3.5-5.0) g/dL Triglycerides (<150) mg/dL Microbiology - Last 24 Hours (Table) 04/30/20 12:20 Blood Culture - Preliminary Blood No Growth after 24 hours Assessment and Plan Plan: 1 Acute hypoxemic respiratory failure secondary to acute COVID 19 pneumonia/pneumonitis, failed previous oxygenation treatments and required intubation and mechanical ventilatory support 04/24/2020. The patient completed a course of Remdesivir on the 04/16/2020, received 2 units of convalescent plasma patient remains on IV steroids and anticoagulation the form of Lovenox. The patient remains sadated and off paralysis and the patient is is on IV solumedrol and empiric antibiotic coverage with IV Zosyn and Diflucan. The patient is on low tidal volume ventilation with tidal volume of 400 the rate of 26 , PEEP 15 with an FiO2 of 60%. Chest x-ray remains unchanged. It is consistent with post Covid pneumonia/ARDS. Blood gases consistent with permissive hypercapnia. This has ever pressure slightly improved compared to yesterday. Chest x-ray findings are stable. I'll lower the PEEP down to 12 adequate airway pressure shows a peak airway pressure of 26 and a static airway pressure of 23. We going to repeat a blood gas and monitor the patient's progress at this point in time. 2 A. fib RVR, currently off miodarone drip and the patient is sinus rhythm and currently on amiodarone at 0.5 mg per minute. She is off the Cardizem drip for now. 3 Possible urinary tract infection related to yeast, recovered, The patient is currently off antibiotics 4 acute kidney injury, probably related to Covid 19 infection, and the patient is currently dialysis dependent 5 hypotension requiring no pressors 6 Elevated d-dimer, without evidence of pulmonary embolism. Remains on Lovenox 30 mg sub daily and this was adjusted based on his underlying acute kidney injury in renal failure. D-dimer is being monitored. The latest level of d- dimer was added 3.75 7 Leukocytosis, possibly related to IV steroids, rule out possibility of a bacterial superinfection of pro-calcitonin is low and the patient has been on IV Zosyn since 2020.The pro-calcitonin level currently is at 0.31 and a white cell count is down to 22 8 Elevated liver enzymes likely related to viral pneumonia, recovered 9 Elevated inflammatory markers related to acute COVID 19 pneumonia, LVH and CRP levels are improving as the patient is being treated with IV Solu-Medrol.. 10 obesity Plan: Continue fentanyl/propofol triglyceride level continue low tidal volume ventilation with an assist-control mode, volume cycle with a rate of 26 tidal volume of 400, I time of 0.9, FiO2 of 50% and drop the PEEP down to 12 adequate. Blood gases and few hours. Continue amiodarone and is being managed by cardiology. The patient is currently off the Cardizem. Remains on IV Solu-Medrol, Lovenox, and the dose of Lovenox has been adjusted to a account for the acute kidney injury patient is currently receiving 30 mg subcu on a daily basis The patient is a hemodialysis yesterday with ultrafiltration of 3.0 L. no dialysis for yesterday, will need another hemodialysis catheter and possible hemodialysis today and this will be decided by nephrology Restart feeding for nutritional support, currently on vital high protein Recheck pro-calcitonin level levels are low and the patient is off antibiotics Recheck blood cultures 2 are negative Prognosis is poor Family is updated We will continue to follow and make further recommendations based on her clinical status Critical care time >30 minutes Time with Patient: Greater than 30 Time with Patient: Greater than 30
[2020-05-02 08:13] LABS: Glucose,Whole Blood 158 mg/dL (75-99)
[2020-05-02] MEDS: ZINC SULFATE 220 MG CAP PO SCH (08:35)
[2020-05-02] MEDS: CHOLECALCIFEROL 25 MCG (1000 IU) TABLET PO SCH (08:35)
[2020-05-02] MEDS: ENOXAPARIN 30 MG/0.3 ML SYRINGE SQ SCH (08:35)
[2020-05-02] MEDS: FAMOTIDINE 20 MG TAB OG-TUBE SCH (08:35)
[2020-05-02] MEDS: ASCORBIC ACID 500 MG TAB PO SCH (08:35)
[2020-05-02] MEDS: CHLORHEXIDINE GLUCONATE 15 ML CUP MUCOUS MEM SCH ×2 (08:35→20:58)
[2020-05-02 10:03] LABS: Ferritin 2372.1 ng/mL (10.0-291.0)
[2020-05-02] MEDS: AMIODARONE 450 MG in DEXTROSE 5% IN WATER 250 ML IV SCH ×2 (10:44)
[2020-05-02 10:49] LABS: ABG Base Excess -4.2 mmol/L; ABG HCO3 23 mmol/L (21-25); ABG Oxygen Saturation 94.1 % (94-97); ABG PCO2 51 mmHg (35-45); ABG PH 7.26 (7.35-7.45); ABG PO2 76 mmHg (83-108); ABG TCO2 25 mmol/L (19-24)
[2020-05-02 12:01] LABS: Glucose,Whole Blood 145 mg/dL (75-99)
--- NOTE | 2020-05-02 12:07 | P.PN ---
Subjective Progress Note Date: 05/02/20 This is a 69-year-old female who is being treated for COVID pneumonia, respiratory failure on mechanical ventilator and also acute renal failure. Patient is going to have dialysis catheter inserted. We are seeing the patient because of atrial fibrillation. Patient was on IV amiodarone, which were change d to by mouth amiodarone. Yesterday. She is getting 400 mg by mouth twice a day. She is currently seem to be sinus rhythm with frequent APCs with short course of SVT. Chest x-ray. Continue show bilateral pneumonias. Patient is being followed by pulmonology and also nephrology. We'll continue current medical therapy. 04/27/2020: This patient developed A. fib with RVR last night. Patient was initiated on IV amiodarone bolus and drip. Patient is currently on 1 mg drip. Heart rate in the 90s to 100 range. Patient is still sedated and intubated on mechanical ventilator. She is also being treated for renal failure. From [facility] standpoin, We'll continue amiodarone drip for now. A. fib with RVR related to underlying respiratory failure. Overall prognosis is guarded. 04/28/20: This patient is still on mechanical ventilation. Patient is requiring Levophed for blood pressure support. Patient is also on IV Cardizem and also IV amiodarone on heart rates in the 80s 70s and 80s. Patient doesn't have a urine output and she is on dialysis. Overall patient clinical status remains critical. From cardiac standpoint we'll continue amiodarone and Cardizem for rate control. We'll continue with ventilatory support. Pulmonary and also nephrology is following. . Patient prognosis is poor. 04/30/2020: This patient is still intubated and on sedation. She is also on intermittent dialysis. Her urine output seemed to be picking up. Patient is a [place] fibrillation with controlled ventricular response at this time. He amiodarone was switched from drip to 200 mg by mouth twice a day. She still on IV Cardizem at 10 mg per hour. This can be slowly tapered off as he tolerates. Patient is on multiple other medication for Covid pneumonia. Chest x-ray continue show diffuse infiltrates. Overall her prognosis seems to be poor. We'll continue to manage atrial fibrillation with combination of amiodarone by mouth and Cardizem IV. Cardizem could be tapered down: 05/01/2020: This patient is still intubated and sedated. Her heart rate has been controlled until today. Today there was attempt to cut back on sedation and also she was receiving dialysis. Her heart rate has jumped up again. We'll resume her amiodarone drip with a bolus of 150 mg. Cardizem is at 10 mg/h. Once the heart rate is controlled with amiodarone drip, will cut back on the Cardizem. Patient is on dialysis for renal failure. She is being treated for Covid pneumonia and respiratory failure. We'll continue current management. We will follow. 05/02/2020: The patient is still intubated. However this seemed to some improvement in oxygenation and also inflammation Walter. Yesterday patient was having episodes of atrial fibrillation. Patient was restarted on amiodarone drip after a bolus of 150. Patient is back in sinus rhythm today. We'll going to start her on by mouth amiodarone after completion of the drip. She is off the Cardizem drip. Rest of the management as for the intensivists. Objective - Vital Signs Vital signs: Vital Signs Temp 97.5 F L 05/02/20 12:00 Pulse 58 L 05/02/20 12:00 Resp 32 H 05/02/20 12:00 BP 130/63 05/02/20 12:00 Pulse Ox 92 L 05/02/20 12:00 Intake & Output 05/01/20 05/02/20 05/02/20 18:59 06:59 18:59 Intake Total 901.512 9173.018 760 Output Total 3061 12 9 Balance -2207.334 1071.018 751 Weight 119.8 kg 119.8 kg Intake: IV 276 276 138 0.9 KVO 240 240 120 Colp flush 36 36 18 Intake, IV Titration 383.666 393.018 450 Amount Amiodarone 360 mg In 100 Dextrose 5% in Water 200 ml @ 1 MG/MIN 33.333 mls/ hr IV .Q6H ONE Rx#: [id number] Amiodarone 450 mg In 250 Dextrose 5% in Water 250 ml @ 0.5 MG/MIN 16.667 mls/hr IV .Q15H PERRY Rx#: [id number] Diltiazem 125 mg In 83.666 Sodium Chloride 0.9% 100 ml @ Per Protocol IV .Q0M PERRY Rx#:[id number] fentaNYL (PF) 1,000 mcg 100 98.282 100 In Sodium Chloride 0.9% 80 ml @ Per Protocol IV . Q0M PERRY Rx#:[id number] propofoL 1,000 mg In 100.000 294.736 100 Empty Bag 1 bag @ Titrate IV .Q0M PERRY Rx#: [id number] Tube Feeding 134 324 142 Other 60 90 30 Output: Urine 61 12 9 Hemodialysis 3000 Other: Voiding Method Indwelling Catheter Indwelling Catheter Indwelling Catheter ABP, PAP, CO, CI - Last Documented Arterial Blood Pressure 122/47 - Exam Patient is not personally examined because of covid infection. Information is gathered from nurses and other consultants notes - Labs CBC & Chem 7: 05/02/20 04:50 05/02/20 04:50 Labs: Abnormal Lab Results - Last 24 Hours (Table) 05/01/20 05/01/20 05/01/20 Range/Units 12:14 16:17 19:58 WBC (3.8-10.6) k/uL RBC (3.80-5.40) m/uL Hgb (11.4-16.0) gm/dL Hct (34.0-46.0) % D-Dimer (<0.60) mg/L FEU ABG pH (7.35-7.45) ABG pCO2 (35-45) mmHg ABG pO2 (83-108) mmHg ABG Total CO2 (19-24) mmol/L ABG O2 Saturation (94-97) % Sodium (137-145) mmol/L Potassium (3.5-5.1) mmol/L BUN (7-17) mg/dL Creatinine (0.52-1.04) mg/dL Glucose (74-99) mg/dL POC Glucose (mg/dL) 136 H 152 H 166 H (75-99) mg/dL Calcium (8.4-10.2) mg/dL Ferritin (10.0-291.0) ng/mL AST (14-36) U/L ALT (4-34) U/L Lactate Dehydrogenase (313-618) U/L C-Reactive Protein (<10.0) mg/L Total Protein (6.3-8.2) g/dL Albumin (3.5-5.0) g/dL 05/01/20 05/02/20 05/02/20 Range/Units 23:38 04:50 04:50 WBC (3.8-10.6) k/uL RBC (3.80-5.40) m/uL Hgb (11.4-16.0) gm/dL Hct (34.0-46.0) % D-Dimer 3.47 H (<0.60) mg/L FEU ABG pH (7.35-7.45) ABG pCO2 (35-45) mmHg ABG pO2 (83-108) mmHg ABG Total CO2 (19-24) mmol/L ABG O2 Saturation (94-97) % Sodium 133 L (137-145) mmol/L Potassium 5.2 H (3.5-5.1) mmol/L BUN 80 H (7-17) mg/dL Creatinine 3.99 H (0.52-1.04) mg/dL Glucose 139 H (74-99) mg/dL POC Glucose (mg/dL) 162 H (75-99) mg/dL Calcium 7.5 L (8.4-10.2) mg/dL Ferritin 2372.1 H (10.0-291.0) ng/mL AST 48 H (14-36) U/L ALT 148 H (4-34) U/L Lactate Dehydrogenase 792 H (313-618) U/L C-Reactive Protein 16.4 H (<10.0) mg/L Total Protein 4.5 L (6.3-8.2) g/dL Albumin 2.1 L (3.5-5.0) g/dL 05/02/20 05/02/20 05/02/20 Range/Units 04:50 04:50 05:25 WBC 22.4 H (3.8-10.6) k/uL RBC 3.47 L (3.80-5.40) m/uL Hgb 10.7 L (11.4-16.0) gm/dL Hct 32.9 L (34.0-46.0) % D-Dimer (<0.60) mg/L FEU ABG pH 7.27 L (7.35-7.45) ABG pCO2 51 H (35-45) mmHg ABG pO2 69 L (83-108) mmHg ABG Total CO2 25 H (19-24) mmol/L ABG O2 Saturation 92.7 L (94-97) % Sodium (137-145) mmol/L Potassium (3.5-5.1) mmol/L BUN (7-17) mg/dL Creatinine (0.52-1.04) mg/dL Glucose (74-99) mg/dL POC Glucose (mg/dL) 136 H (75-99) mg/dL Calcium (8.4-10.2) mg/dL Ferritin (10.0-291.0) ng/mL AST (14-36) U/L ALT (4-34) U/L Lactate Dehydrogenase (313-618) U/L C-Reactive Protein (<10.0) mg/L Total Protein (6.3-8.2) g/dL Albumin (3.5-5.0) g/dL 05/02/20 05/02/20 05/02/20 Range/Units 08:11 10:42 11:59 WBC (3.8-10.6) k/uL RBC (3.80-5.40) m/uL Hgb (11.4-16.0) gm/dL Hct (34.0-46.0) % D-Dimer (<0.60) mg/L FEU ABG pH 7.26 L (7.35-7.45) ABG pCO2 51 H (35-45) mmHg ABG pO2 76 L (83-108) mmHg ABG Total CO2 25 H (19-24) mmol/L ABG O2 Saturation (94-97) % Sodium (137-145) mmol/L Potassium (3.5-5.1) mmol/L BUN (7-17) mg/dL Creatinine (0.52-1.04) mg/dL Glucose (74-99) mg/dL POC Glucose (mg/dL) 158 H 145 H (75-99) mg/dL Calcium (8.4-10.2) mg/dL Ferritin (10.0-291.0) ng/mL AST (14-36) U/L ALT (4-34) U/L Lactate Dehydrogenase (313-618) U/L C-Reactive Protein (<10.0) mg/L Total Protein (6.3-8.2) g/dL Albumin (3.5-5.0) g/dL Microbiology - Last 24 Hours (Table) 04/30/20 12:20 Blood Culture - Preliminary Blood No Growth after 24 hours Assessment and Plan (1) Atrial fibrillation with RVR Current Visit: Yes Status: Acute Code(s): I48.91 - UNSPECIFIED ATRIAL FIBRILLATION SNOMED Code(s): 685027783252076 (2) Pneumonia due to COVID-19 virus Current Visit: Yes Status: Acute Code(s): U07.1 - COVID-19; J12.82 - Pneumonia due to coronavirus disease 2019 SNOMED Code(s): 289835692603335226 (3) Acute renal failure Current Visit: Yes Status: Acute Code(s): N17.9 - ACUTE KIDNEY FAILURE, UNSPECIFIED SNOMED Code(s): 76985180 Plan: Patient is back in sinus rhythm. She is on IV IV amiodarone drip. This will be changed to by mouth amiodarone. Patient is off Cardizem. Overall this seemed to be some improvement in oxygen his saturations and also inflammation markers.
[2020-05-02] MEDS: FOLIC ACID 1 MG TAB PO SCH (12:10)
[2020-05-02] MEDS: MULTIVITAMINS, THERA 1 EACH TAB PO SCH (12:10)
[2020-05-02] MEDS: THIAMINE 100 MG TAB PO SCH (12:11)
--- NOTE | 2020-05-02 14:35 | PN ---
PROGRESS NOTE The patient is seen for followup for acute kidney injury, mostly ATN, currently oliguric and hemodialysis dependent. The patient will be scheduled for hemodialysis tomorrow. She tolerated her treatment fairly well yesterday and had 3000 mL of fluid removed. PHYSICAL EXAMINATION: Patient remains on the vent. FiO2 is at 50%. Blood pressure this morning 130/60, heart rate about 60 per minute, patient is afebrile. Examination shows edema 2+, upper and lower extremities bilaterally. Abdomen is soft, nontender. PATIENT REGISTRAR exam cannot be assessed, patient is sedated and on the vent. LAB: Show sodium of 133, potassium 5.2, chloride 101, BUN 80, creatinine 3.9, albumin 2.1, calcium 7.5. ASSESSMENT: 1. Acute kidney injury oliguric, acute tubular necrosis, currently hemodialysis dependent. We will arrange for hemodialysis in a.m. Change the femoral catheter to an IJ PermCath. 2. Mild hyperkalemia. Switch tube feeds to Nepro. 3. Volume overload, increase UF with hemodialysis tomorrow. 4. COVID-19 pneumonia, status post Remdesivir, maintained on steroids, currently on the vent. 5. Acute hypoxic respiratory failure secondary to underlying COVID-19 infection and pneumonia. 6. Atrial fibrillation with an rapid ventricular response, back on amiodarone drip. Cardizem has been discontinued. 7. Hypotension from sepsis, currently off of pressors. PLAN: Hemodialysis in a.m. Change tube feedings to Nepro. Change to IJ PermCath. Will discuss with Vascular Surgery. MMODL / IJN: [id number] / KELSIE
[2020-05-02 16:23] LABS: Glucose,Whole Blood 137 mg/dL (75-99)
--- NOTE | 2020-05-02 18:54 | PN ---
PROGRESS NOTE DATE OF SERVICE: 05/02/2020 REASON FOR FOLLOWUP: Pneumonia. INTERVAL HISTORY: The patient remains to be intubated on the vent. The patient is hemodynamically stable, currently off the pressor support. Heart rate is currently controlled. No significant purulent secretions through the ET or any worsening diarrhea reported by nursing staff. PHYSICAL EXAMINATION: Blood pressure 132/63 with a pulse of 67, temperature 97.5. She is 92% on 50% FiO2. General description is an elderly female intubated on the vent. Respiratory system: Unlabored breathing with decreased intensity in breath sounds. No wheeze. Abdomen: Soft. Extremities: Some edema of the feet. LABS: Hemoglobin is 10.7, white count 22.4, BUN of 80, creatinine 3.99. DIAGNOSTIC IMPRESSION AND PLAN: Patient with acute respiratory failure, multifactorial in this patient did have a COVID- 19 pneumonia completed Remdesivir therapy. Currently on the antibiotic form of Zosyn. X-ray shows improving infiltrate. We will monitor clinical course closely. Overall prognosis remains to be guarded. MMODL / IJN: [id number] /
[2020-05-02 20:28] LABS: Glucose,Whole Blood 136 mg/dL (75-99)
[2020-05-02] MEDS: AMIODARONE 200 MG TAB PO SCH (20:58)
[2020-05-03 00:38] LABS: Glucose,Whole Blood 125 mg/dL (75-99)
[2020-05-03] MEDS: INSULIN ASPART (NovoLOG) 100 UNIT/ML VIAL SQ SCH ×6 (00:40→20:25)
[2020-05-03] MEDS: methylPREDNISolone SOD SUCCI 125 MG/2 ML VIAL IV SCH ×4 (00:42→17:25)
[2020-05-03] MEDS: fentaNYL (PF) 1,000 MCG in SODIUM CHLORIDE 0.9% 80 ML IV SCH ×3 (03:20→20:07)
[2020-05-03 05:06] LABS: Glucose,Whole Blood 132 mg/dL (75-99)
[2020-05-03] MEDS: NOREPINEPHRINE 8 MG in SODIUM CHLORIDE 0.9% 250 ML IV SCH (05:10)
[2020-05-03 05:12] LABS: ABG Base Excess -6.7 mmol/L; ABG HCO3 21 mmol/L (21-25); ABG Oxygen Saturation 93.6 % (94-97); ABG PCO2 51 mmHg (35-45); ABG PH 7.22 (7.35-7.45); ABG PO2 77 mmHg (83-108); ABG TCO2 23 mmol/L (19-24)
[2020-05-03] MEDS: LEVOTHYROXINE 50 MCG TAB PO SCH (05:16)
[2020-05-03 05:20] LABS: HCT 34.4 % (34.0-46.0); HGB 11.3 gm/dL (11.4-16.0); MCH 31.2 pg (25.0-35.0); MCV 94.6 fL (80.0-100.0); Mean Platelet Volume 8.4; Platelet Count 198 k/uL (150-450); RBC 3.64 m/uL (3.80-5.40); RDW 13.8 % (11.5-15.5); WBC 31.3 k/uL (3.8-10.6)
[2020-05-03 05:51] LABS: Calcium 7.7 mg/dL (8.4-10.2); Magnesium 2.5 mg/dL (1.6-2.3); Potassium 5.9 mmol/L (3.5-5.1)
[2020-05-03 05:55] LABS: C Reactive Protein 9.7 mg/L (<10.0)
[2020-05-03] MEDS: ALBUTEROL HFA INHALER INHALATION SCH ×4 (07:10→20:12)
--- NOTE | 2020-05-03 07:18 | XR ---
EXAMINATION TYPE: XR chest 1V portable DATE OF EXAM: 05/03/2020 Comparison: 05/02/2020 Clinical History: 69-year-old female SOB Findings: ET and NG tubes are satisfactory. Left PICC tip a short probably in the region of the left brachiocep halic vein. Heart upper limits of normal in size. Confinement and lower lung interstitial opacities p ersist, slight improvement at the left base. Impression: Findings interstitial infiltrates or edema in the mid and lower lungs persist with slight improvement at the left base.
[2020-05-03 09:25] LABS: Ferritin 2220.2 ng/mL (10.0-291.0)
--- NOTE | 2020-05-03 09:33 | PN ---
PROGRESS NOTE This is an unfortunate lady who has developed Covid pneumonia and remains on a vent from the 16. She has been in and out of atrial fibrillation. However, she was on a combination of IV Cardizem and IV amiodarone and has converted to sinus rhythm. She is in sinus rhythm in the 60s, seems to be more stable. She has also developed acute kidney injury and she is on hemodialysis as well. At this time, she is on amiodarone 200 mg b.i.d. and seems to be maintaining sinus rhythm. She is still on a ventilator with a 50% FiO2 with some acidosis. From an arrhythmia standpoint, I would recommend that we continue the current dose of amiodarone 200 mg b.i.d. If no procedures are planned, I would recommend that we switch her from Lovenox to intravenous heparin low- dose protocol given her atrial fibrillation and high risk for embolic stroke. If she has no further procedures planned in the form of dialysis catheter insertion or any other similar procedures, we can switch her to intravenous heparin, that would be my recommendation. She is on a ventilator. Hemodynamically appears to be stable. Physical examination revealed a heart rate of about 62, sinus. JVD 1 cm. No carotid bruit. S1-S2 heard normally with a short systolic murmur at the base. Lungs reveal scattered rhonchi with the ventilator assisted breaths sounds. I would recommend that we continue amiodarone 200 mg b.i.d. orally and also initiate her on IV heparin. If there is no objection from the community relations rep Dr. Motta. MMODL / DELANEYN: [id number] /
[2020-05-03] MEDS: AMIODARONE 200 MG TAB PO SCH ×2 (09:37→22:33)
[2020-05-03] MEDS: CHOLECALCIFEROL 25 MCG (1000 IU) TABLET PO SCH (09:37)
[2020-05-03] MEDS: FOLIC ACID 1 MG TAB PO SCH (09:37)
[2020-05-03] MEDS: CHLORHEXIDINE GLUCONATE 15 ML CUP MUCOUS MEM SCH ×2 (09:37→22:33)
[2020-05-03] MEDS: ENOXAPARIN 30 MG/0.3 ML SYRINGE SQ SCH (09:37)
[2020-05-03] MEDS: ZINC SULFATE 220 MG CAP PO SCH (09:37)
[2020-05-03] MEDS: FAMOTIDINE 20 MG TAB OG-TUBE SCH (09:37)
[2020-05-03] MEDS: MULTIVITAMINS, THERA 1 EACH TAB PO SCH (09:37)
[2020-05-03] MEDS: ASCORBIC ACID 500 MG TAB PO SCH (09:37)
[2020-05-03] MEDS: PIPERACILLIN-TAZOBACTAM 3.375 GM in SODIUM CHLORIDE 0.9% 100 ML IVPB SCH ×2 (09:41→22:33)
[2020-05-03 10:00] LABS: Glucose,Whole Blood 115 mg/dL (75-99)
--- NOTE | 2020-05-03 10:00 | P.PN ---
Subjective Ms. Mccoy is a 69-year-old female with a past medical history of hypertension and thyroid disorder admitted to the hospital for acute hypoxic respiratory failure secondary to COVID 19 pneumonia. Patient has extensive bilateral interstitial pneumonia. She is on a low and pulmonary Dr. Mathews is following the patient. Patient received a convalescent plasma, is also on Remdesivir. On 04/17/2020- This morning patient was evaluated in the ICU. Patient is comfortably sitting in a chair states that her breathing is improving gradually. She denies having any chest pain or palpitations. No cough or hemoptysis. She denies having any swelling or for lower extremities. No abdominal pain nausea vomiting or diarrhea. She denies having any dysuria or hematuria, she has a Bryan's catheter in place. On reviewing her vitals temperature 98.1 heart rate 75 is 5817, blood pressure 1:30 bradycardia. Saturating at 96% on a Aervo -60%. On 04/18/2020 - patient was seen and examined in the ICU. Patient is sitting in a chair by the bedside, states that her breathing has worsened compared to yesterday. Patient is on high flow Airvo, saturating in the low 90s. She denies having any chest pain or palpitations. She complains of cough that is nonproductive. Patient had a chest x-ray done showing stable bilateral air space disease. As the patient was having few episodes of tachycardia, she was started on Lopressor this morning. Patient's inflammatory markers are noted to be high. On reviewing her vitals saturating at 90% on high flow Airvo, heart rate 70s to 80s, respiratory rate 20-25, blood pressure 106-67. In reviewing her labs white count of 29.3, hemoglobin 16.8, platelets 369. D-dimer 6.99, LDH 2969, CRP 63.9. On 04/19/2020 - patient is seen and examined in the ICU. She is currently on BiPAP, as her respiratory status has worsened compared to yesterday. Patient denies having any chest pain or palpitations. No abdominal pain nausea vomiting or diarrhea. No dysuria or hematuria. She is on BiPAP 14/6 and 100% FiO2. On reviewing her vitals temperature is 99.2, respiratory rate is 25, heart rate 70, blood pressure 10 9 x 71. Reviewing the labs white count of 27.3, hemoglobin 17.4, platelets 314. Sodium 133, potassium 4.4, chloride 90, bicarbonate 35, BUN 31, creatinine 0.72. Ferritin 3195, CRP 217 and LDH 2747. 04/20/2020 This is a pleasant 69 years old female with multiple medical problems was adm itted for bilateral Covid pneumonia, she is currently on aervo at 90%/60 L of oxygen, saturating 89%. Rest of Vitas looks stable Also she is on BiPAP All the night. She is able to eat and drink, no pressors She is on normal saline at 75 mL/h with adequate urine output Patient is currently ON Medrol 40 mg twice daily, Lovenox 60 mg twice Mary and vitamin C and zinc. She finished her remdisvir and convelecent plasma. 04/21/2020 Patient remains in the ICU bed and respiratory support for her bilateral Covid pneumonia. She still dyspneic especially with exertion and she still needs BiPAP during the day shift. Also she had a fever today of 102.2. Patient is empirically on Zosyn/calcitonin check today showing normal level at 0.07. She has leukocytosis of 29K. I agree with Zosyn and I recommended to continue with that for now. Also patient is on steroids 60 mg every 6 hours. As there is no more significant progress progress in her clinical picture Glucose is 123 and inflammatory markers still elevated 04/22/2020 this is a pleasant 69 yo F who is admitted to the ICU for covid pneumonia, she is still on BiPAP dependant , TNP is started for her nutrition for this reasone. her oxygen saturation is on low 90s% cxr: diffuse interstitial opacities and worsening airspace disease in the left lower lung. consider interstitial edema wbc is sligtly less 26K, she is currently continued on zosyn , and solumedrol 60 mg. and normal saline increased to 150 ml/hr. and lovenox 60 mg BID she finised her Remdisvir and convelescent Plasma. 04/23/2020 Patient looks very tired, she came Off the BiPAP today morning and she was placed back on airvo at 60 L she is back and forth between BiPAP and airvo, however she probably will need BiPAP at night Inflammatory markers and d-dimer increased, ferritin 3100 up to 3700 and d-dimer 3 up to 5 Chest x-ray showing bilateral middle and lower infiltrates with slight improvement Treatments with antibiotics Zosyn, fluconazole was added today. Also she is also on Solu-Medrol 60 mg, normal sling was decreased to 50 mL per hour, Lovenox 60 mg twice daily, TPN and she is on vitamin C and zinc 04/24/2020 Patient today her clinical condition deteriorated, she was hypoxic this morning with oxygen saturation in the 70s percent and she was tachycardic with heart rate 140-150, patient ended up being intubated in the morning and she was in an you onset of A. fib and started on Cardizem drip on 15 mg however her heart rate was still elevated, cardiology team were consulted, blood pressure was on the low normal side. Amiodarone drip was started. Cardiology team and Cardizem drip was shut to 15 mg/h. Also insulin drip for hyperglycemia with sugar more than 300. 04/25/2020 Patient was intubated yesterday for deteriorated respiratory status, ABG showing elevated pCO2 on 496 with acidosis. 7.0 and 7.1. Oxygen saturation is acceptable at 107. She remains on mechanical ventilation managed by pulmonary/critical care team, currently her bruits and draped with before meals at 40 to help with her acidosis. Her creatinine worsened today 0.5 up to 1.3, with potassium elevated as well as 5.5 nephrology team were consulted who ordered insulin/dextrose 50%, sodium bicarb 1 and Lasix 80 mg 1. Fleet Administrator recommended hemodialysis and no improvement in 24 hours Chest x-ray showing pneumonia and edema which is stable from yesterday. Sugar improved and we could switch her insulin drip to insulin sliding scale A. 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 Showing trending down leukocytosis to 20 6.1K. Creatinine up to 2.8, Patient is developing anuria with acute kidney injury, nephrology evaluation is appreciated and hemodialysis is initiated. Chest x-ray showing interstitial infiltrate especially in the mid to lower lungs Echocardiogram showed ejection fraction of 55-60%, and atrial fibrillation i mproved yesterday with amiodarone She remains on Solu-Medrol, Zosyn and fluconazole, normal sinus 50 and vitamin C and zinc Lovenox dose was adjusted to renal function down to 50 mg daily Prognosis remains guarded 04/27/2020 Patient with bilateral: With pneumonia that her purse and eventually got i ntubated, pulmonary/critical care team and several consultants are following the case, vent management as per pulmonary team. She has leukocytosis of 13.8 K. Creatinine today is 3.37 Patient undergoing hemodialysis for the last 2-3 days for acute kidney injury and [facility] Patient A. fib heart rate becomes uncontrolled today and her amiodarone to switch to a drip. Other medication including Solu-Medrol 60 mg, vitamin C and zinc, Zosyn and fluconazole, she is on normal saline at 50 mL/h and Lovenox dose dropped to 30 mg daily 04/28/2020 Patient remains intubated and sedated in the ICU, followed closely by critical care team. Vital showing tachycardia and tachypnea. WBC is 30 3.5K. Cre atinine 3.8, sodium 134. Sugar is controlled. Inflammatory markers are elevated. She is undergoing hemodialysis today Chest x-ray from today showing no change from last one yesterday Medication-hernandez he remains on Solu-Medrol, Zosyn, 30 mg of Lovenox daily which is renal dose and amiodarone drip. Normal saline at 50 mm was discontinued today 04/29/2020 This is a pleasant 69 years old female with bilateral, with pneumonia. Patient remains in the ICU sedated and intubated with pulmonary/critical care team following the case closely. Normal sedation holiday for the patient currently She already finished her treatment with remdesivir and convalescent plasma, and currently she is on vitamin C and zinc. She was on steroids in the form of high dose of Solu-Medrol 60 mg and Zosyn and fluconazole for possible bacteria and fungal infection associated with viral infection. Patient course was complicated by renal failure and new or so she underwent hemodialysis, last HD was yesterday, she is kept on renal dose of Lovenox 30 mg daily. Other complication is atrial fibrillation with RVR which is currently controlled with oral amiodarone and low-dose of Cardizem drip. Patient condition remains critical and she kept on mechanical ventilation with close monitoring Procalcitonin is unchanged yesterday at 0.39 compared to one week ago at 0.39. We'll order another test tomorrow 05/01/20 Patient remains in the ICU intubated on mechanical ventilation with pulmonary/critical care team following closely. Patient today underwent sedation holiday and into hours she started becoming agitated and developed atrial fibrillation's with RVR, she has to be placed back on amiodarone drip and Cardizem drip 10 mg per hour before it was converted to sinus rhythm again Currently she is tachypneic with a breathing rate around 32. She is saturating 91% on FiO2 of 60% Leukocytosis 27.9 yesterday and 24.6K today. D-dimer stable at 3.7 so she kept on the same dose of Lovenox Inflammatory markers including LDH, protein and C-reactive protein went up slightly today. Patient remains anuric and undergoing hemodialysis She remains on Zosyn and fluconazole, she got 2 doses of IV vancomycin yesterday and today. Also she is on zinc and vitamin C, Lovenox 30 mg daily. Diflucan was stopped 05/02/2020 Patient remains intubated and sedated in the ICU was followed closely by pulmonary/critical care team and for vent management. Patient also with A. fib on several occasions needing Cardizem and amiodarone, cardiology following the patient Patient is still undergoing hemodialysis for anuria and acute kidney injury, nephrology team on the case x-ray showed improvement bibasilar infiltrates She is on some Medrol 60 mg daily, antibiotics were stopped 2 days ago. She is also on Lovenox 30 mg daily, vitamin C and zinc chest Review of systems N/a Active Medications Generic Name Dose Route Start Last Admin Trade Name Freq PRN Reason Stop Dose Admin Acetaminophen 650 mg 04/11/20 16:48 04/21/20 04:34 Acetaminophen Tab 325 Mg Tab PO 650 mg Q6HR PRN Administration Mild Pain or Fever > 100.5 Albuterol Sulfate 2 puff 04/25/20 16:00 05/02/20 10:54 Albuterol Hfa Inhaler INHALATION 2 puff RT-QID PERRY Administration Amiodarone HCl 200 mg 05/02/20 21:00 Amiodarone 200 Mg Tab PO BID PERRY Ascorbic Acid 250 mg 04/12/20 09:00 05/02/20 08:35 Ascorbic Acid 500 Mg Tab PO 250 mg DAILY PERRY Administration Chlorhexidine Gluconate 15 ml 04/24/20 21:00 05/02/20 08:35 Chlorhexidine Gluconate 15 Ml Cup MUCOUS MEM 15 ml BID PERRY Administration Cholecalciferol 25 mcg 04/27/20 10:30 05/02/20 08:35 Cholecalciferol 25 Mcg (1000 Iu) Tablet PO 25 mcg DAILY PERRY Administration Enoxaparin Sodium 30 mg 04/27/20 09:00 05/02/20 08:35 Enoxaparin 30 Mg/0.3 Ml Syringe SQ 30 mg DAILY PERRY Administration Famotidine 20 mg 04/27/20 09:00 05/02/20 08:35 Famotidine 20 Mg Tab OG-TUBE 20 mg Q24HR PERRY Administration Folic Acid 1 mg 04/12/20 12:00 05/02/20 12:10 Folic Acid 1 Mg Tab PO 1 mg DAILY@1200 PERRY Administration Propofol 1,000 mg/ IV Solution 100 mls @ 0 mls/hr 04/24/20 08:45 05/02/20 13:50 IV 35 mcg/kg/min .Q0M PERRY 25.263 mls/hr Administration Protocol Titrate Fentanyl Citrate 1,000 mcg/ 100 mls @ 0 mls/hr 04/28/20 09:00 05/02/20 10:44 Sodium Chloride IV 1 mcg/kg/hr .Q0M PERRY 11.54 mls/hr Administration Protocol Per Protocol Norepinephrine Bitartrate 8 mg 258 mls @ 11.417 mls/hr 04/30/20 08:00 05/02/20 05:36 / Sodium Chloride IV Not Given .[id number] PERRY Protocol 0.05 MCG/KG/MIN Insulin Aspart 0 unit 04/25/20 12:00 05/02/20 12:11 Insulin Aspart (Novolog) 100 Unit/Ml Vial SQ 2 unit Q4H PERRY Administration Protocol Levothyroxine Sodium 50 mcg 04/12/20 06:30 05/02/20 05:51 Levothyroxine 50 Mcg Tab PO 50 mcg DAILY@0630 PERRY Administration Methylprednisolone Sodium Succinate 60 mg 04/21/20 12:00 05/02/20 12:11 Methylprednisolone Sod Succi 125 Mg/2 Ml Vial IV 60 mg Q6HR PERRY Administration Miscellaneous Information 1 each 04/24/20 18:43 Potassium Replacement Protocol 1 Each Misc MISCELLANE DAILY PRN Per Protocol Protocol Morphine Sulfate 2 mg 04/23/20 08:34 04/26/20 16:07 Morphine Sulfate 2 Mg/Ml Syringe IVP 2 mg Q6H PRN Administration Pain/Discomfort Multivitamins 1 each 04/12/20 12:00 05/02/20 12:10 Multivitamins, Thera 1 Each Tab PO 1 each DAILY@1200 PERRY Administration Naloxone HCl 0.2 mg 04/11/20 16:48 Naloxone 0.4 Mg/Ml 1 Ml Vial IV Q2M PRN Opioid Reversal Ondansetron HCl 4 mg 04/15/20 20:08 Ondansetron 4 Mg/2 Ml Vial IVP Q6HR PRN Nausea And Vomiting Thiamine HCl 100 mg 04/12/20 12:00 05/02/20 12:11 Thiamine 100 Mg Tab PO 100 mg DAILY@1200 PERRY Administration Zinc Sulfate 220 mg 04/12/20 09:00 05/02/20 08:35 Zinc Sulfate 220 Mg Cap PO 220 mg DAILY PERRY Administration Objective - Vital Signs Vital signs: Vital Signs Temp 97.5 F L 05/02/20 12:00 Pulse 66 05/02/20 14:00 Resp 32 H 05/02/20 14:00 BP 130/63 05/02/20 14:00 Pulse Ox 92 L 05/02/20 14:00 Intake & Output 05/01/20 05/02/20 05/02/20 18:59 06:59 18:59 Intake Total 024.863 5949.018 1023.393 Output Total 3061 12 24 Balance -2207.334 1071.018 999.393 Weight 119.8 kg 119.8 kg Intake: IV 276 276 184 0.9 KVO 240 240 160 Frohna flush 36 36 24 Intake, IV Titration 383.666 393.018 603.393 Amount Amiodarone 360 mg In 100 Dextrose 5% in Water 200 ml @ 1 MG/MIN 33.333 mls/ hr IV .Q6H ONE Rx#: [id number] Amiodarone 450 mg In 304.446 Dextrose 5% in Water 250 ml @ 0.5 MG/MIN 16.667 mls/hr IV .Q15H PERRY Rx#: [id number] Diltiazem 125 mg In 83.666 Sodium Chloride 0.9% 100 ml @ Per Protocol IV .Q0M PERRY Rx#:[id number] fentaNYL (PF) 1,000 mcg 100 98.282 100 In Sodium Chloride 0.9% 80 ml @ Per Protocol IV . Q0M PERRY Rx#:[id number] propofoL 1,000 mg In 100.000 294.736 198.947 Empty Bag 1 bag @ Titrate IV .Q0M PERRY Rx#: [id number] Tube Feeding 134 324 176 Other 60 90 60 Output: Urine 61 12 24 Hemodialysis 3000 Other: Voiding Method Indwelling Catheter Indwelling Catheter Indwelling Catheter ABP, PAP, CO, CI - Last Documented Arterial Blood Pressure 133/68 - Labs CBC & Chem 7: 05/03/20 05:00 05/03/20 05:00 Labs: Abnormal Lab Results - Last 24 Hours (Table) 05/01/20 05/01/20 05/01/20 Range/Units 16:17 19:58 23:38 WBC (3.8-10.6) k/uL RBC (3.80-5.40) m/uL Hgb (11.4-16.0) gm/dL Hct (34.0-46.0) % D-Dimer (<0.60) mg/L FEU ABG pH (7.35-7.45) ABG pCO2 (35-45) mmHg ABG pO2 (83-108) mmHg ABG Total CO2 (19-24) mmol/L ABG O2 Saturation (94-97) % Sodium (137-145) mmol/L Potassium (3.5-5.1) mmol/L BUN (7-17) mg/dL Creatinine (0.52-1.04) mg/dL Glucose (74-99) mg/dL POC Glucose (mg/dL) 152 H 166 H 162 H (75-99) mg/dL Calcium (8.4-10.2) mg/dL Ferritin (10.0-291.0) ng/mL AST (14-36) U/L ALT (4-34) U/L Lactate Dehydrogenase (313-618) U/L C-Reactive Protein (<10.0) mg/L Total Protein (6.3-8.2) g/dL Albumin (3.5-5.0) g/dL 05/02/20 05/02/20 05/02/20 Range/Units 04:50 04:50 04:50 WBC 22.4 H (3.8-10.6) k/uL RBC 3.47 L (3.80-5.40) m/uL Hgb 10.7 L (11.4-16.0) gm/dL Hct 32.9 L (34.0-46.0) % D-Dimer 3.47 H (<0.60) mg/L FEU ABG pH (7.35-7.45) ABG pCO2 (35-45) mmHg ABG pO2 (83-108) mmHg ABG Total CO2 (19-24) mmol/L ABG O2 Saturation (94-97) % Sodium 133 L (137-145) mmol/L Potassium 5.2 H (3.5-5.1) mmol/L BUN 80 H (7-17) mg/dL Creatinine 3.99 H (0.52-1.04) mg/dL Glucose 139 H (74-99) mg/dL POC Glucose (mg/dL) (75-99) mg/dL Calcium 7.5 L (8.4-10.2) mg/dL Ferritin 2372.1 H (10.0-291.0) ng/mL AST 48 H (14-36) U/L ALT 148 H (4-34) U/L Lactate Dehydrogenase 792 H (313-618) U/L C-Reactive Protein 16.4 H (<10.0) mg/L Total Protein 4.5 L (6.3-8.2) g/dL Albumin 2.1 L (3.5-5.0) g/dL 05/02/20 05/02/20 05/02/20 Range/Units 04:50 05:25 08:11 WBC (3.8-10.6) k/uL RBC (3.80-5.40) m/uL Hgb (11.4-16.0) gm/dL Hct (34.0-46.0) % D-Dimer (<0.60) mg/L FEU ABG pH 7.27 L (7.35-7.45) ABG pCO2 51 H (35-45) mmHg ABG pO2 69 L (83-108) mmHg ABG Total CO2 25 H (19-24) mmol/L ABG O2 Saturation 92.7 L (94-97) % Sodium (137-145) mmol/L Potassium (3.5-5.1) mmol/L BUN (7-17) mg/dL Creatinine (0.52-1.04) mg/dL Glucose (74-99) mg/dL POC Glucose (mg/dL) 136 H 158 H (75-99) mg/dL Calcium (8.4-10.2) mg/dL Ferritin (10.0-291.0) ng/mL AST (14-36) U/L ALT (4-34) U/L Lactate Dehydrogenase (313-618) U/L C-Reactive Protein (<10.0) mg/L Total Protein (6.3-8.2) g/dL Albumin (3.5-5.0) g/dL 05/02/20 05/02/20 Range/Units 10:42 11:59 WBC (3.8-10.6) k/uL RBC (3.80-5.40) m/uL Hgb (11.4-16.0) gm/dL Hct (34.0-46.0) % D-Dimer (<0.60) mg/L FEU ABG pH 7.26 L (7.35-7.45) ABG pCO2 51 H (35-45) mmHg ABG pO2 76 L (83-108) mmHg ABG Total CO2 25 H (19-24) mmol/L ABG O2 Saturation (94-97) % Sodium (137-145) mmol/L Potassium (3.5-5.1) mmol/L BUN (7-17) mg/dL Creatinine (0.52-1.04) mg/dL Glucose (74-99) mg/dL POC Glucose (mg/dL) 145 H (75-99) mg/dL Calcium (8.4-10.2) mg/dL Ferritin (10.0-291.0) ng/mL AST (14-36) U/L ALT (4-34) U/L Lactate Dehydrogenase (313-618) U/L C-Reactive Protein (<10.0) mg/L Total Protein (6.3-8.2) g/dL Albumin (3.5-5.0) g/dL Microbiology - Last 24 Hours (Table) 04/30/20 12:20 Blood Culture - Preliminary Blood No Growth after 24 hours
[2020-05-03 11:34] LABS: Glucose,Whole Blood 150 mg/dL (75-99)
[2020-05-03] MEDS: THIAMINE 100 MG TAB PO SCH (11:39)
--- NOTE | 2020-05-03 12:13 | P.PN ---
Subjective Progress Note Date: 05/03/20 Ms. Mccoy is a 69-year-old female with a past medical history of hypertension and thyroid disorder admitted to the hospital for acute hypoxic respiratory failure secondary to COVID 19 pneumonia. Patient has extensive bilateral interstitial pneumonia. She is on a low and pulmonary Dr. Mathews is following the patient. Patient received a convalescent plasma, is also on Remdesivir. On 04/17/2020- This morning patient was evaluated in the ICU. Patient is comfortably sitting in a chair states that her breathing is improving gradually. She denies having any chest pain or palpitations. No cough or hemoptysis. She denies having any swelling or for lower extremities. No abdominal pain nausea vomiting or diarrhea. She denies having any dysuria or hematuria, she has a Bryan's catheter in place. On reviewing her vitals temperature 98.1 heart rate 75 is 5817, blood pressure 1:30 bradycardia. Saturating at 96% on a Aervo -60%. On 04/18/2020 - patient was seen and examined in the ICU. Patient is sitting in a chair by the bedside, states that her breathing has worsened compared to yesterday. Patient is on high flow Airvo, saturating in the low 90s. She denies having any chest pain or palpitations. She complains of cough that is nonproductive. Patient had a chest x-ray done showing stable bilateral air space disease. As the patient was having few episodes of tachycardia, she was started on Lopressor this morning. Patient's inflammatory markers are noted to be high. On reviewing her vitals saturating at 90% on high flow Airvo, heart rate 70s to 80s, respiratory rate 20-25, blood pressure 106-67. In reviewing her labs white count of 29.3, hemoglobin 16.8, platelets 369. D-dimer 6.99, LDH 2969, CRP 63.9. On 04/19/2020 - patient is seen and examined in the ICU. She is currently on BiPAP, as her respiratory status has worsened compared to yesterday. Patient denies having any chest pain or palpitations. No abdominal pain nausea vomiting or diarrhea. No dysuria or hematuria. She is on BiPAP 14/6 and 100% FiO2. On reviewing her vitals temperature is 99.2, respiratory rate is 25, heart rate 70, blood pressure 10 9 x 71. Reviewing the labs white count of 27.3, hemoglobin 17.4, platelets 314. Sodium 133, potassium 4.4, chloride 90, bicarbonate 35, BUN 31, creatinine 0.72. Ferritin 3195, CRP 217 and LDH 2747. 04/20/2020 This is a pleasant 69 years old female with multiple medical problems was admitted for bilateral Covid pneumonia, she is currently on aervo at 90%/60 L of oxygen, saturating 89%. Rest of Vitas looks stable Also she is on BiPAP All the night. She is able to eat and drink, no pressors She is on normal saline at 75 mL/h with adequate urine output Patient is currently ON Medrol 40 mg twice daily, Lovenox 60 mg twice Mary and vitamin C and zinc. She finished her remdisvir and convelecent plasma. 04/21/2020 Patient remains in the ICU bed and respiratory support for her bilateral Covid pneumonia. She still dyspneic especially with exertion and she still needs BiPAP during the day shift. Also she had a fever today of 102.2. Patient is empirically on Zosyn/calcitonin check today showing normal level at 0.07. She has leukocytosis of 29K. I agree with Zosyn and I recommended to continue with that for now. Also patient is on steroids 60 mg every 6 hours. As there is no more significant progress progress in her clinical picture Glucose is 123 and inflammatory markers still elevated 04/22/2020 this is a pleasant 69 yo F who is admitted to the ICU for covid pneumonia, she is still on BiPAP dependant , TNP is started for her nutrition for this reasone. her oxygen saturation is on low 90s% cxr: diffuse interstitial opacities and worsening airspace disease in the left lower lung. consider interstitial edema wbc is sligtly less 26K, she is currently continued on zosyn , and solumedrol 60 mg. and normal saline increased to 150 ml/hr. and lovenox 60 mg BID she finised her Remdisvir and convelescent Plasma. 04/23/2020 Patient looks very tired, she came Off the BiPAP today morning and she was placed back on airvo at 60 L she is back and forth between BiPAP and airvo, however she probably will need BiPAP at night Inflammatory markers and d-dimer increased, ferritin 3100 up to 3700 and d-dimer 3 up to 5 Chest x-ray showing bilateral middle and lower infiltrates with slight improvement Treatments with antibiotics Zosyn, fluconazole was added today. Also she is also on Solu-Medrol 60 mg, normal sling was decreased to 50 mL per hour, Lovenox 60 mg twice daily, TPN and she is on vitamin C and zinc 04/24/2020 Patient today her clinical condition deteriorated, she was hypoxic this morning with oxygen saturation in the 70s percent and she was tachycardic with heart rate 140-150, patient ended up being intubated in the morning and she was in an you onset of A. fib and started on Cardizem drip on 15 mg however her heart rate was still elevated, cardiology team were consulted, blood pressure was on the low normal side. Amiodarone drip was started. Cardiology team and Cardizem drip was shut to 15 mg/h. Also insulin drip for hyperglycemia with sugar more than 300. 04/25/2020 Patient was intubated yesterday for deteriorated respiratory status, ABG showing elevated pCO2 on 496 with acidosis. 7.0 and 7.1. Oxygen saturation is acceptable at 107. She remains on mechanical ventilation managed by pulmonary/critical care team, currently her bruits and draped with before meals at 40 to help with her acidosis. Her creatinine worsened today 0.5 up to 1.3, with potassium elevated as well as 5.5 nephrology team were consulted who ordered insulin/dextrose 50%, sodium bicarb 1 and Lasix 80 mg 1. Crew Car Driver recommended hemodialysis and no improvement in 24 hours Chest x-ray showing pneumonia and edema which is stable from yesterday. Sugar improved and we could switch her insulin drip to insulin sliding scale A. fib is improved and converted to sinus rhythm with amiodarone which is swi tched to [facility] per [employer], She Is Already on Anticoagulation 04/26/20 Patient remains in the ICU sedated and intubated with pulmonary/ critical care team following the case closely. Showing trending down leukocytosis to 20 6.1K. Creatinine up to 2.8, Patient is developing anuria with acute kidney injury, nephrology evaluation is appreciated and hemodialysis is initiated. Chest x-ray showing interstitial infiltrate especially in the mid to lower lungs Echocardiogram showed ejection fraction of 55-60%, and atrial fibrillation improved yesterday with amiodarone She remains on Solu-Medrol, Zosyn and fluconazole, normal sinus 50 and vitamin C and zinc Lovenox dose was adjusted to renal function down to 50 mg daily Prognosis remains guarded 04/27/2020 Patient with bilateral: With pneumonia that her purse and eventually got intubated, pulmonary/critical care team and several consultants are following the case, vent management as per pulmonary team. She has leukocytosis of 13.8 K. Creatinine today is 3.37 Patient undergoing hemodialysis for the last 2-3 days for acute kidney injury and [facility] Patient A. fib heart rate becomes uncontrolled today and her amiodarone to switch to a drip. Other medication including Solu-Medrol 60 mg, vitamin C and zinc, Zosyn and fluconazole, she is on normal saline at 50 mL/h and Lovenox dose dropped to 30 mg daily 04/28/2020 Patient remains intubated and sedated in the ICU, followed closely by critical care team. Vital showing tachycardia and tachypnea. WBC is 30 3.5K. Creatinine 3.8, sodium 134. Sugar is controlled. Inflammatory markers are elevated. She is undergoing hemodialysis today Chest x-ray from today showing no change from last one yesterday Medication-hernandez he remains on Solu-Medrol, Zosyn, 30 mg of Lovenox daily which is renal dose and amiodarone drip. Normal saline at 50 mm was discontinued today 04/29/2020 This is a pleasant 69 years old female with bilateral, with pneumonia. Patient remains in the ICU sedated and intubated with pulmonary/critical care team following the case closely. Normal sedation holiday for the patient currently She already finished her treatment with remdesivir and convalescent plasma, and currently she is on vitamin C and zinc. She was on steroids in the form of high dose of Solu-Medrol 60 mg and Zosyn and fluconazole for possible bacteria and fungal infection associated with viral infection. Patient course was complicated by renal failure and new or so she underwent hemodialysis, last HD was yesterday, she is kept on renal dose of Lovenox 30 mg daily. Other compli cation is atrial fibrillation with RVR which is currently controlled with oral amiodarone and low-dose of Cardizem drip. Patient condition remains critical and she kept on mechanical ventilation with close monitoring Procalcitonin is unchanged yesterday at 0.39 compared to one week ago at 0.39. We'll order another test tomorrow 04/30/2020 Patient is seen and evaluated and follow-up continues to remain closely monitored in the ICU. Patient continues to be on a mechanical ventilator intubated and sedated currently off paralytics. Patient being followed by multiple medical consultations including cardiology, pulmonary, nephrology. Patient currently receiving hemodialysis for ultrafiltration and became extremely hypotensive maxing out on pressors and dialysis was aborted. Patient prognosis is extremely guarded and poor at this time. Patient continues to be on IV steroids along with Lovenox vitamin C and D and zinc supplements and will continue. Patient is also maintained on IV antibiotics in the form of Zosyn and vancomycin being added. Patient currently off of IV amiodarone and IV Cardizem and transitioned to oral amiodarone and will continue at this time. Chest x-ray continues to show interstitial pneumonia with bilateral basilar infiltrates and tiny effusions. She also had an abdominal x-ray showing nonspecific abdomen with no diagnostic evidence of obstruction. White blood count today is 27.9, hemoglobin is stable at 12.7, d-dimer is elevated although slowly trending down at 3.04, current sodium is 129, potassium is 5.9, BUN is 103 with a creatinine of 4.97. Attempts at ultrafiltration today his potassium is elevated. Nephrology is following closely. 05/01/20 Patient remains in the ICU intubated on mechanical ventilation with pulmonary/critical care team following closely. Patient today underwent sedation holiday and into hours she started becoming agitated and developed atrial fibrillation's with RVR, she has to be placed back on amiodarone drip and Cardizem drip 10 mg per hour before it was converted to sinus rhythm again Currently she is tachypneic with a breathing rate around 32. She is saturating 91% on FiO2 of 60% Leukocytosis 27.9 yesterday and 24.6K today. D-dimer stable at 3.7 so she kept on the same dose of Lovenox Inflammatory markers including LDH, protein and C-reactive protein went up slightly today. Patient remains anuric and undergoing hemodialysis She remains on Zosyn and fluconazole, she got 2 doses of IV vancomycin yesterday and today. Also she is on zinc and vitamin C, Lovenox 30 mg daily. Diflucan was stopped 05/02/2020 Patient remains intubated and sedated in the ICU was followed closely by pulmonary/critical care team and for vent management. Patient also with A. fib on several occasions needing Cardizem and amiodarone, cardiology following the patient Patient is still undergoing hemodialysis for anuria and acute kidney injury, nephrology team on the case x-ray showed improvement bibasilar infiltrates She is on some Medrol 60 mg daily, antibiotics were stopped 2 days ago. She is also on Lovenox 30 mg daily, vitamin C and zinc 05/03/2020 Patient is seen this morning currently remains in the ICU receiving hemodialysis today. Multiple medical consultations following. Patient remains on mechanical vent and is intubated and sedated and will continue at this time. D-dimer is elevated at 5.50, sodium is 132, potassium is 5.9, BUN is 108, current creatinine is 4.87. White blood count is 31.3 and hemoglobin is 11.3. Patient blood pressure is elevated as well and has been continuing with daily dialysis. Chest x-rays today show interstitial infiltrates or edema in the mid and lower lungs continue with slight improvement on the left. Patient remains on IV antibiotics in the form of Zosyn and will continue at this time. Infectious disease is following as well. Review of systems: Unable to obtain as patient's currently intubated and sedated Active Medications Acetaminophen (Acetaminophen Tab 325 Mg Tab) 650 mg PO Q6HR PRN PRN Reason: Mild Pain or Fever > 100.5 Last Admin: 04/21/20 04:34 Dose: 650 mg Documented by: Albuterol Sulfate (Albuterol Hfa Inhaler) 2 puff INHALATION RT-QID ON LICENSE OF [facility] Last Admin: 05/03/20 11:04 Dose: 2 puff Documented by: Amiodarone HCl (Amiodarone 200 Mg Tab) 200 mg PO BID ON LICENSE OF [facility] Last Admin: 05/03/20 09:37 Dose: 200 mg Documented by: Ascorbic Acid (Ascorbic Acid 500 Mg Tab) 250 mg PO DAILY ON LICENSE OF [facility] Last Admin: 05/03/20 09:37 Dose: 250 mg Documented by: Chlorhexidine Gluconate (Chlorhexidine Gluconate 15 Ml Cup) 15 ml MUCOUS MEM BID ON LICENSE OF [facility] Last Admin: 05/03/20 09:37 Dose: 15 ml Documented by: Cholecalciferol (Cholecalciferol 25 Mcg (1000 Iu) Tablet) 25 mcg PO DAILY ON LICENSE OF [facility] Last Admin: 05/03/20 09:37 Dose: 25 mcg Documented by: Enoxaparin Sodium (Enoxaparin 30 Mg/0.3 Ml Syringe) 30 mg SQ DAILY ON LICENSE OF [facility] Last Admin: 05/03/20 09:37 Dose: 30 mg Documented by: Famotidine (Famotidine 20 Mg Tab) 20 mg OG-TUBE Q24HR ON LICENSE OF [facility] Last Admin: 05/03/20 09:37 Dose: 20 mg Documented by: Folic Acid (Folic Acid 1 Mg Tab) 1 mg PO DAILY@1200 ON LICENSE OF [facility] Last Admin: 05/03/20 09:37 Dose: 1 mg Documented by: Propofol 1,000 mg/ IV Solution 100 mls @ 0 mls/hr IV .Q0M ON LICENSE OF [facility]; Protocol Last Admin: 05/03/20 11:38 Dose: 35 mcg/kg/min, 25.158 mls/hr Documented by: Fentanyl Citrate 1,000 mcg/ (Sodium Chloride) 100 mls @ 0 mls/hr IV .Q0M ON LICENSE OF [facility]; Protocol Last Admin: 05/03/20 10:26 Dose: 1 mcg/kg/hr, 11.54 mls/hr Documented by: Norepinephrine Bitartrate 8 mg (/ Sodium Chloride) 258 mls @ 11.417 mls/hr IV .[id number] ON LICENSE OF [facility]; Protocol Last Admin: 05/03/20 05:10 Dose: Not Given Documented by: Piperacillin Sod/Tazobactam (Sod 3.375 gm/ Sodium Chloride) 100 mls @ 25 mls/hr IVPB Q12HR ON LICENSE OF [facility] Last Admin: 05/03/20 09:41 Dose: 25 mls/hr Documented by: Insulin Aspart (Insulin Aspart (Novolog) 100 Unit/Ml Vial) 0 unit SQ Q4H ON LICENSE OF [facility]; Protocol Last Admin: 05/03/20 11:39 Dose: 2 unit Documented by: Levothyroxine Sodium (Levothyroxine 50 Mcg Tab) 50 mcg PO DAILY@0630 ON LICENSE OF [facility] Last Admin: 05/03/20 05:16 Dose: 50 mcg Documented by: Methylprednisolone Sodium Succinate (Methylprednisolone Sod Succi 125 Mg/2 Ml Vial) 60 mg IV Q6HR ON LICENSE OF [facility] Last Admin: 05/03/20 11:39 Dose: 60 mg Documented by: Miscellaneous Information (Potassium Replacement Protocol 1 Each Misc) 1 each MISCELLANE DAILY PRN; Protocol PRN Reason: Per Protocol Morphine Sulfate (Morphine Sulfate 2 Mg/Ml Syringe) 2 mg IVP Q6H PRN PRN Reason: Pain/Discomfort Last Admin: 04/26/20 16:07 Dose: 2 mg Documented by: Multivitamins (Multivitamins, Thera 1 Each Tab) 1 each PO DAILY@1200 ON LICENSE OF [facility] Last Admin: 05/03/20 09:37 Dose: 1 each Documented by: Naloxone HCl (Naloxone 0.4 Mg/Ml 1 Ml Vial) 0.2 mg IV Q2M PRN PRN Reason: Opioid Reversal Ondansetron HCl (Ondansetron 4 Mg/2 Ml Vial) 4 mg IVP Q6HR PRN PRN Reason: Nausea And Vomiting Thiamine HCl (Thiamine 100 Mg Tab) 100 mg PO DAILY@1200 ON LICENSE OF [facility] Last Admin: 05/03/20 11:39 Dose: 100 mg Documented by: Zinc Sulfate (Zinc Sulfate 220 Mg Cap) 220 mg PO DAILY ON LICENSE OF [facility] Last Admin: 05/03/20 09:37 Dose: 220 mg Documented by: Objective - Vital Signs Vital signs: Vital Signs Temp 96.5 F L 05/03/20 08:00 Pulse 65 05/03/20 10:00 Resp 32 H 05/03/20 10:00 BP 130/63 05/02/20 17:00 Pulse Ox 93 L 05/03/20 10:00 Intake & Output 05/02/20 05/03/20 05/03/20 18:59 06:59 18:59 Intake Total 1305.603 907.000 538 Output Total 24 60 15 Balance 1281.603 847.000 523 Weight 119.8 kg Intake: IV 276 243 80 0.9 KVO 240 32 0.9% KVO 180 80 Diana flush 36 31 Intake, IV Titration 695.603 400.000 300 Amount Amiodarone 450 mg In 304.446 Dextrose 5% in Water 250 ml @ 0.5 MG/MIN 16.667 mls/hr IV .Q15H ON LICENSE OF [facility] Rx#: [id number] Piperacillin-Tazobactam 3 100 .375 gm In Sodium Chloride 0.9% 100 ml @ 25 mls/hr IVPB Q12HR ON LICENSE OF [facility] Rx #:[id number] fentaNYL (PF) 1,000 mcg 100 200.000 100 In Sodium Chloride 0.9% 80 ml @ Per Protocol IV . Q0M [facility] Rx#:[id number] propofoL 1,000 mg In 291.157 200 100 Empty Bag 1 bag @ Titrate IV .Q0M [facility] Rx#: [id number] Tube Feeding 244 204 68 Other 90 60 90 Output: Urine 24 60 15 Other: Voiding Method Indwelling Catheter Indwelling Catheter ABP, PAP, CO, CI - Last Documented Arterial Blood Pressure 176/55 - Exam GENERAL: The patient is intubated and sedated HEENT: Pupils are round and equally reacting to light. EOMI. No scleral icterus. No conjunctival pallor. Normocephalic, atraumatic. No pharyngeal erythema. No thyromegaly. CARDIOVASCULAR: S1 and S2 present. No murmurs, rubs, or gallops. PULMONARY: Chest is clear to auscultation, bilateral crepitation ABDOMEN: Soft, nontender, nondistended, normoactive bowel sounds. No palpable organomegaly. MUSCULOSKELETAL: No joint swelling or deformity. EXTREMITIES: No cyanosis, clubbing, or pedal edema. Bilateral upper extremity edema noted with 2+ pitting in the hands NEUROLOGICAL: Gross neurological examination did not reveal any focal deficits. SKIN: No rashes. no petechiae. - Labs CBC & Chem 7: 05/03/20 05:00 05/03/20 05:00 Labs: Abnormal Lab Results - Last 24 Hours (Table) 05/02/20 05/02/20 05/02/20 Range/Units 10:42 11:59 16:21 WBC (3.8-10.6) k/uL RBC (3.80-5.40) m/uL Hgb (11.4-16.0) gm/dL D-Dimer (<0.60) mg/L FEU ABG pH 7.26 L (7.35-7.45) ABG pCO2 51 H (35-45) mmHg ABG pO2 76 L (83-108) mmHg ABG Total CO2 25 H (19-24) mmol/L ABG O2 Saturation (94-97) % Sodium (137-145) mmol/L Potassium (3.5-5.1) mmol/L Carbon Dioxide (22-30) mmol/L BUN (7-17) mg/dL Creatinine (0.52-1.04) mg/dL Glucose (74-99) mg/dL POC Glucose (mg/dL) 145 H 137 H (75-99) mg/dL Calcium (8.4-10.2) mg/dL Magnesium (1.6-2.3) mg/dL Ferritin (10.0-291.0) ng/mL Lactate Dehydrogenase (313-618) U/L 05/02/20 05/03/20 05/03/20 Range/Units 20:27 00:36 05:00 WBC (3.8-10.6) k/uL RBC (3.80-5.40) m/uL Hgb (11.4-16.0) gm/dL D-Dimer 5.50 H (<0.60) mg/L FEU ABG pH (7.35-7.45) ABG pCO2 (35-45) mmHg ABG pO2 (83-108) mmHg ABG Total CO2 (19-24) mmol/L ABG O2 Saturation (94-97) % Sodium (137-145) mmol/L Potassium (3.5-5.1) mmol/L Carbon Dioxide (22-30) mmol/L BUN (7-17) mg/dL Creatinine (0.52-1.04) mg/dL Glucose (74-99) mg/dL POC Glucose (mg/dL) 136 H 125 H (75-99) mg/dL Calcium (8.4-10.2) mg/dL Magnesium (1.6-2.3) mg/dL Ferritin (10.0-291.0) ng/mL Lactate Dehydrogenase (313-618) U/L 05/03/20 05/03/20 05/03/20 Range/Units 05:00 05:00 05:00 WBC 31.3 H (3.8-10.6) k/uL RBC 3.64 L (3.80-5.40) m/uL Hgb 11.3 L (11.4-16.0) gm/dL D-Dimer (<0.60) mg/L FEU ABG pH (7.35-7.45) ABG pCO2 (35-45) mmHg ABG pO2 (83-108) mmHg ABG Total CO2 (19-24) mmol/L ABG O2 Saturation (94-97) % Sodium 132 L (137-145) mmol/L Potassium 5.9 H (3.5-5.1) mmol/L Carbon Dioxide 19 L (22-30) mmol/L BUN 108 H* (7-17) mg/dL Creatinine 4.87 H (0.52-1.04) mg/dL Glucose 122 H (74-99) mg/dL POC Glucose (mg/dL) (75-99) mg/dL Calcium 7.7 L (8.4-10.2) mg/dL Magnesium 2.5 H (1.6-2.3) mg/dL Ferritin 2220.2 H (10.0-291.0) ng/mL Lactate Dehydrogenase 891 H (313-618) U/L 05/03/20 05/03/20 05/03/20 Range/Units 05:04 05:06 09:58 WBC (3.8-10.6) k/uL RBC (3.80-5.40) m/uL Hgb (11.4-16.0) gm/dL D-Dimer (<0.60) mg/L FEU ABG pH 7.22 L (7.35-7.45) ABG pCO2 51 H (35-45) mmHg ABG pO2 77 L (83-108) mmHg ABG Total CO2 (19-24) mmol/L ABG O2 Saturation 93.6 L (94-97) % Sodium (137-145) mmol/L Potassium (3.5-5.1) mmol/L Carbon Dioxide (22-30) mmol/L BUN (7-17) mg/dL Creatinine (0.52-1.04) mg/dL Glucose (74-99) mg/dL POC Glucose (mg/dL) 132 H 115 H (75-99) mg/dL Calcium (8.4-10.2) mg/dL Magnesium (1.6-2.3) mg/dL Ferritin (10.0-291.0) ng/mL Lactate Dehydrogenase (313-618) U/L Microbiology - Last 24 Hours (Table) 04/30/20 12:20 Blood Culture - Preliminary Blood No Growth after 48 hours Assessment and Plan Assessment: COVID 19 pneumonia Acute hypoxic respiratory failure-status post intubation and mechanical ventilation New onset A. fib with RVR, currently rate controlled on oral amiodarone, cardiology following Acute kidney injury with anuria status post hemodialysis, nephrology following patient is receiving hemodialysis today Increased d-dimer without evidence of PE Hyponatremia Leukocytosis, white blood count 31.3 today, remains on Zosyn, infectious disease following Elevated inflammatory markers Hypertension Hypothyroidism History of bilateral posterior tibial tendon repair Obesity with BMI of 40.2 DVT prophylaxis: Subcutaneous Lovenox GI prophylaxis: Pepcid Full code Plan: This is a pleasant 69 years old female with Covid pneumonia and hypoxic respiratory failure. Continue with oxygen supplementation as needed, intubated on mechanical ventilation with pulmonary/critical care team and follow the case closely. Monitor inflammatory markers. Continue with Solu-Medrol and Lovenox and zinc and vitamin C. Lovenox has been adjusted as renal function remains poor. Patient is on hemodialysis with nephrology following. Blood pressures on the higher side today. Patient is maintaining tube feedings via NG tube and will continue at this time. Patient continues on IV antibiotics in the form of Zosyn. Cardiology following closely. Labs and medication were reviewed. Further recommendations as per clinical course of the patient Prognosis remains extremely poor and guarded.
--- NOTE | 2020-05-03 12:19 | PN ---
PROGRESS NOTE Patient is seen for followup for acute kidney injury. Patient is currently hemodialysis dependent. Her potassium was high today. She will be dialyzed today. Tube feeds were changed to Nepro yesterday. Currently, patient remains on the vent. FiO2 is at 50%. She is maintained on fentanyl. Blood pressure was 159/45, heart rate of 59 per minute. Patient is afebrile. Exam is discussed with nursing staff. She continues to have edema in the lower extremities. Currently patient is sedated and on the vent, tolerating tube feeds. LABS: Show sodium of 132. Potassium 5.9, CO2 is 19, BUN 108, creatinine 4.87, hemoglobin 11.3 g/dL. ASSESSMENT: 1. Acute kidney injury, oliguric renal failure, acute tubular necrosis secondary to underlying sepsis and COVID-19 infection. The patient is maintained on dialysis and she will be maintained on a Sunday, Sunday, Sunday schedule as long as her labs remain stable. She is volume overloaded, therefore we will continue to maintain increased ultrafiltration. 2. Volume overload. Expect improvement with ongoing dialysis. 3. Hypertension, partly volume sensitive. 4. Acute hypoxic respiratory failure secondary to underlying COVID-19 pneumonia and sepsis. 5. Covid 19 pneumonia status post Remdesivir, maintained on steroids. 6. Atrial fibrillation with RVR status post amiodarone drip and Cardizem drip. 7. Hyperkalemia associated with advanced renal failure, expect improvement with hemodialysis today. Tube feeds changed to Nepro. PLAN: Hemodialysis today. We will evaluate for dialysis on a daily basis. Most likely patient will need another treatment tomorrow. MMODL / IJN: [id number] /
--- NOTE | 2020-05-03 13:51 | P.PN ---
Subjective Progress Note Date: 05/03/20 Principal diagnosis: Acute hypoxic respiratory failure secondary to covid 19 pneumonitis This 69-year-old white female patient who was admitted to the hospital on 04/11/2020 when she came in for evaluation of 1 week history of cough, fever, shortness of breath, decreased appetite and intermittent episodes of diarrhea. Patient was diagnosed with COVID 19 pneumonia, this was done via outpatient testing through the health Department. Patient initially presented at [facility], she was hypoxemic with a pulse ox in the 80s and she was placed on high flow oxygen and transferred to the [facility]. CT angiogram of the chest showed no evidence of pulmonary embolism, however it showed evidence of bilateral interstitial infiltrates consistent with COVID 19 pneumonitis. Patient completed her Remdesivir treatment on 04/16/2020, she received 2 units of convalescent plasma, she remains on IV steroids with IV Solu-Medrol. In view of her worsening hypoxemia patient was transferred to the intensive care unit, she is intubated on 04/24/2020 05/02/2020, the patient remains intubated on a mechanical ventilator. She remains on propofol which is running at 35 mcg/kg per minute and the patient is on fentanyl running at 1 g per KG per hour. The patient is well sedated and, comfortable suggest a mechanical ventilator. Her vent settings are essentially the same. The patient is on a VC plus mode with a rate of 32 and FiO2 of 50% with a PEEP of 15 and a tidal volume of 400. Peak airway pressures 31, static pressures probably 38. Blood gas showed a pH of 7.27 with a pCO2 of 51 and pO2 of 69 and the blood is essentially stable and comparable to yesterday's value. The patient has no major secretions. The chest x-ray stable with diffuse breath and pulmonary infiltrates and there is no evidence of pneumothorax. ET tube is in good location. She remains on Solu-Medrol 60 mg every 6 hours inpatient LDH level is down to 792 and the CRP level is down to 16.4 and the d-dimer today is at 3.47. She is afebrile. She has a small amount of diarrhea and fecal management system is in place. Urine output is minimal and the patient is re ceiving dialysis periodically. Her last bout of dialysis was yesterday. This was done successfully. Total of 3 L of ultrafiltration was performed without causing any significant hemodynamic changes. In fact she became slightly hypoxic as the patient was being weaned off the propofol and ultimately propofol was restarted. Triglyceride levels are at 285. She is receiving enteral feeding for nutritional support. She remains on vital high protein at the rate of 27 mL an hour and she is essentially at goal. She weighs was restarted yesterday and there is no significant residuals. No emesis. She was having issues with frequent PVCs and short runs of atrial fibrillation yesterday. Based on that, cardiology restarted the patient on amiodarone drip at 0.5 mg shows and a Cardizem drip has been discontinued. Liver function tests from today shows an AST of 48, ALT of 148 and an alkaline phosphatase of 72. Reevaluated today on 05/03/2020, patient remains intubated and mechanically tonya tilated. She is presently on tidal volume was 420, volume control plus, assist control rate of 32, FiO2 50%, and PEEP is 12. Peak airway pressure is 32, plateau pressure is 25. ABG this morning showed a pO2 of 77 pCO2 of 51 pH of 7.2. 2. Patient remains on propofol is also on fentanyl, both were placed on hold this morning, and soon as the patient was waking up, her blood pressure was in the 200 range systolic. Patient was not awake enough to follow any instructions, hence I recommended that she remains back on propofol and fentanyl. Patient is receiving dialysis through a right hemodialysis catheter in the groin. Patient is receiving enteral feeding/Nepro . Her white count is noted to be elevated today, and her pro calcitonin level was also noted to be a bit elevated, hence I recommended adding Zosyn this will be added empirically, and cultures were ordered. Patient is a good set up for catheter sepsis. Patient was intubated on 04/24/2020, and over the next few days if the patient does not tolerate weaning may have to consider tracheostomy and PEG tube placement. Her ABG remains marginal and her PEEP remains relatively high at 12, FiO2 is at 50%, but she is nowhere near weaning at this point. WBC count today is up to 31.3, hemoglobin is 11.3. Electrolytes showed elevated potassium of 5.9, and the patient had a BUN of 108 creatinine 4.87, she is about to be di alyzed in the next 15 minutes. Inflammatory markers showed LDH of 891 C- reactive protein is 9.7, ferritin is 2220. Chest x-ray continues to show bilateral interstitial infiltrates Objective - Vital Signs Vital signs: Vital Signs Temp 96.5 F L 05/03/20 08:00 Pulse 65 05/03/20 10:00 Resp 32 H 05/03/20 10:00 BP 130/63 05/02/20 17:00 Pulse Ox 93 L 05/03/20 10:00 Intake & Output 05/02/20 05/03/20 05/03/20 18:59 06:59 18:59 Intake Total 1305.603 907.000 538 Output Total 24 60 15 Balance 1281.603 847.000 523 Weight 119.8 kg Intake: IV 276 243 80 0.9 KVO 240 32 0.9% KVO 180 80 [place] flush 36 31 Intake, IV Titration 695.603 400.000 300 Amount Amiodarone 450 mg In 304.446 Dextrose 5% in Water 250 ml @ 0.5 MG/MIN 16.667 mls/hr IV .Q15H PERRY Rx#: [id number] Piperacillin-Tazobactam 3 100 .375 gm In Sodium Chloride 0.9% 100 ml @ 25 mls/hr IVPB Q12HR PERRY Rx #:[id number] fentaNYL (PF) 1,000 mcg 100 200.000 100 In Sodium Chloride 0.9% 80 ml @ Per Protocol IV . Q0M PERRY Rx#:[id number] propofoL 1,000 mg In 291.157 200 100 Empty Bag 1 bag @ Titrate IV .Q0M PERRY Rx#: [id number] Tube Feeding 244 204 68 Other 90 60 90 Output: Urine 24 60 15 Other: Voiding Method Indwelling Catheter Indwelling Catheter Indwelling Catheter ABP, PAP, CO, CI - Last Documented Arterial Blood Pressure 176/55 - Exam Physical Exam: Revealed a 69-year-old female , intubated and mechanically ventilated. Head: Atraumatic normocephalic. The tracheal tube and orogastric tubes are intact. HEENT: PERRLA,, EOMI, nonicteric. Moist mucous membranes Chest: [Symmetrical chest expansion, crackles and rhonchi noted bilaterally Cardiac Exam: [Normal S1 and S2, no S3 gallop, no murmur.] Abdomen: [Soft, nontender, no megaly, no rebound, no guarding, normal bowel sounds.] Extremities: [No clubbing, 1+ bipedal edema, no cyanosis.] Neurological Exam: [Not be assessed, patient is sedated, she is on propofol and fentanyl. Psychiatric: Not be assessed. Skin: No rashes. - Labs CBC & Chem 7: 05/03/20 05:00 05/03/20 05:00 Labs: Abnormal Lab Results - Last 24 Hours (Table) 05/02/20 05/02/20 05/03/20 Range/Units 16:21 20:27 00:36 WBC (3.8-10.6) k/uL RBC (3.80-5.40) m/uL Hgb (11.4-16.0) gm/dL D-Dimer (<0.60) mg/L FEU ABG pH (7.35-7.45) ABG pCO2 (35-45) mmHg ABG pO2 (83-108) mmHg ABG O2 Saturation (94-97) % Sodium (137-145) mmol/L Potassium (3.5-5.1) mmol/L Carbon Dioxide (22-30) mmol/L BUN (7-17) mg/dL Creatinine (0.52-1.04) mg/dL Glucose (74-99) mg/dL POC Glucose (mg/dL) 137 H 136 H 125 H (75-99) mg/dL Calcium (8.4-10.2) mg/dL Magnesium (1.6-2.3) mg/dL Ferritin (10.0-291.0) ng/mL Lactate Dehydrogenase (313-618) U/L 05/03/20 05/03/20 05/03/20 Range/Units 05:00 05:00 05:00 WBC 31.3 H (3.8-10.6) k/uL RBC 3.64 L (3.80-5.40) m/uL Hgb 11.3 L (11.4-16.0) gm/dL D-Dimer 5.50 H (<0.60) mg/L FEU ABG pH (7.35-7.45) ABG pCO2 (35-45) mmHg ABG pO2 (83-108) mmHg ABG O2 Saturation (94-97) % Sodium (137-145) mmol/L Potassium (3.5-5.1) mmol/L Carbon Dioxide (22-30) mmol/L BUN (7-17) mg/dL Creatinine (0.52-1.04) mg/dL Glucose (74-99) mg/dL POC Glucose (mg/dL) (75-99) mg/dL Calcium (8.4-10.2) mg/dL Magnesium (1.6-2.3) mg/dL Ferritin 2220.2 H (10.0-291.0) ng/mL Lactate Dehydrogenase 891 H (313-618) U/L 05/03/20 05/03/20 05/03/20 Range/Units 05:00 05:04 05:06 WBC (3.8-10.6) k/uL RBC (3.80-5.40) m/uL Hgb (11.4-16.0) gm/dL D-Dimer (<0.60) mg/L FEU ABG pH 7.22 L (7.35-7.45) ABG pCO2 51 H (35-45) mmHg ABG pO2 77 L (83-108) mmHg ABG O2 Saturation 93.6 L (94-97) % Sodium 132 L (137-145) mmol/L Potassium 5.9 H (3.5-5.1) mmol/L Carbon Dioxide 19 L (22-30) mmol/L BUN 108 H* (7-17) mg/dL Creatinine 4.87 H (0.52-1.04) mg/dL Glucose 122 H (74-99) mg/dL POC Glucose (mg/dL) 132 H (75-99) mg/dL Calcium 7.7 L (8.4-10.2) mg/dL Magnesium 2.5 H (1.6-2.3) mg/dL Ferritin (10.0-291.0) ng/mL Lactate Dehydrogenase (313-618) U/L 05/03/20 05/03/20 Range/Units 09:58 11:33 WBC (3.8-10.6) k/uL RBC (3.80-5.40) m/uL Hgb (11.4-16.0) gm/dL D-Dimer (<0.60) mg/L FEU ABG pH (7.35-7.45) ABG pCO2 (35-45) mmHg ABG pO2 (83-108) mmHg ABG O2 Saturation (94-97) % Sodium (137-145) mmol/L Potassium (3.5-5.1) mmol/L Carbon Dioxide (22-30) mmol/L BUN (7-17) mg/dL Creatinine (0.52-1.04) mg/dL Glucose (74-99) mg/dL POC Glucose (mg/dL) 115 H 150 H (75-99) mg/dL Calcium (8.4-10.2) mg/dL Magnesium (1.6-2.3) mg/dL Ferritin (10.0-291.0) ng/mL Lactate Dehydrogenase (313-618) U/L Microbiology - Last 24 Hours (Table) 04/30/20 12:20 Blood Culture - Preliminary Blood No Growth after 48 hours Assessment and Plan Assessment: Impression: Acute hypoxic respiratory failure secondary to covid 19 pneumonitis. Requiring intubation and mechanical ventilation on 04/24/2020, not quite ready for any extubation or even weaning trials at this point. History of hysterectomy. Remote history of nicotine dependence. Obesity with body index of 35. Elevated d-dimer but negative for pulmonary embolism. Paroxysmal atrial fibrillation with RVR, Acute kidney injury from Covid 19 infection requiring hemodialysis. Elevated liver enzymes secondary to viral pneumonia. Elevated inflammatory markers continue to viral pneumonia. Recommendation: Continue to monitor in the ICU. Not ready for any weaning at this point. Continue mechanical ventilation, GI prophylaxis, nutritional/enteral feeding. Nutritional support. Continue the present cocktail for covid 19 pneumonitis. Finished her full course of remdesivir convalescent plasma, was given 2. Continue Solu-Medrol, presently on 60 mg IV push every 6 hours. and continue, vitamin C, vitamin D, and zinc. Continue Lovenox. 30 mg subcu daily. Will follow closely. Prognosis is guarded. Restarted Zosyn empirically since the patient is showing leukocytosis and elevated pro calcitonin level. We'll continue to follow in the ICU Critical care time is 40 minutes. Time with Patient: Greater than 30
[2020-05-03 16:54] LABS: Glucose,Whole Blood 126 mg/dL (75-99)
[2020-05-03 20:22] LABS: Glucose,Whole Blood 134 mg/dL (75-99)
--- NOTE | 2020-05-03 22:08 | PN ---
PROGRESS NOTE DATE OF SERVICE: 05/03/2020 REASON FOR FOLLOWUP: Pneumonia. INTERVAL HISTORY: The patient is currently afebrile. The patient is hemodynamically stable. The patient remains intubated on the vent. Currently not on any pressor support. FiO2 is down to 50%. No significant purulent secretions in the ET or any other changes being reported. PHYSICAL EXAMINATION: Blood pressure 175/51 with a pulse of 60, temperature 97.6. She is 93% on 50% FiO2. General description is an elderly female intubated on the vent. RESPIRATORY SYSTEM: Unlabored breathing. Coarse breath sounds at bases ABDOMEN: Soft. No tenderness. LABS: Hemoglobin is 11.3, white count of 31.3, BUN of 108, creatinine 4.87. DIAGNOSTIC IMPRESSION AND PLAN: Patient with acute respiratory failure which is multifactorial in this patient who did have COVID-19 infection. The patient has completed her remdesivir therapy, currently on empiric Zosyn. Elevated white count is more likely steroid effect. Continue supportive care. MMODL / IJN: [id number] / KELSIE
[2020-05-04 01:06] LABS: Glucose,Whole Blood 142 mg/dL (75-99)
[2020-05-04] MEDS: methylPREDNISolone SOD SUCCI 125 MG/2 ML VIAL IV SCH ×4 (01:10→17:26)
[2020-05-04] MEDS: INSULIN ASPART (NovoLOG) 100 UNIT/ML VIAL SQ SCH ×6 (01:10→20:30)
[2020-05-04] MEDS: NOREPINEPHRINE 8 MG in SODIUM CHLORIDE 0.9% 250 ML IV SCH (04:08)
[2020-05-04 04:36] LABS: Glucose,Whole Blood 137 mg/dL (75-99)
[2020-05-04 05:04] LABS: HCT 36.8 % (34.0-46.0); HGB 11.9 gm/dL (11.4-16.0); MCH 30.3 pg (25.0-35.0); MCHC 32.2 g/dL (31.0-37.0); MCV 93.9 fL (80.0-100.0); Mean Platelet Volume 8.6; Platelet Count 214 k/uL (150-450); RBC 3.92 m/uL (3.80-5.40); RDW 13.9 % (11.5-15.5); WBC 31.6 k/uL (3.8-10.6)
[2020-05-04 05:19] LABS: C Reactive Protein 8.1 mg/L (<10.0)
[2020-05-04 05:29] LABS: ABG Base Excess -5.5 mmol/L; ABG HCO3 21 mmol/L (21-25); ABG Oxygen Saturation 93.5 % (94-97); ABG PCO2 44 mmHg (35-45); ABG PH 7.29 (7.35-7.45); ABG PO2 73 mmHg (83-108); ABG TCO2 22 mmol/L (19-24)
[2020-05-04] MEDS: LEVOTHYROXINE 50 MCG TAB PO SCH (05:45)
[2020-05-04] MEDS: fentaNYL (PF) 1,000 MCG in SODIUM CHLORIDE 0.9% 80 ML IV SCH ×2 (05:50→14:15)
[2020-05-04 06:37] LABS: Band Neutrophils % 6 %; Lymphocytes # (M) 0.63 k/uL (1.0-4.8); Monocytes # (M) 0.63 k/uL (0-1.0); Neutrophils % (M) 90 %; Nucleated Red Blood Cells 0 /100 WBC (0-0); Total Cells Counted 100
[2020-05-04 06:38] LABS: Anisocytosis (M) Present
[2020-05-04 06:39] LABS: Large Platelets Present
[2020-05-04] MEDS: ALBUTEROL HFA INHALER INHALATION SCH ×4 (07:15→19:43)
[2020-05-04 07:40] LABS: Glucose,Whole Blood 136 mg/dL (75-99)
[2020-05-04] MEDS: AMIODARONE 200 MG TAB PO SCH ×2 (07:58→19:54)
[2020-05-04] MEDS: ASCORBIC ACID 500 MG TAB PO SCH (07:58)
[2020-05-04] MEDS: CHLORHEXIDINE GLUCONATE 15 ML CUP MUCOUS MEM SCH ×2 (07:59→19:54)
[2020-05-04] MEDS: CHOLECALCIFEROL 25 MCG (1000 IU) TABLET PO SCH (07:59)
[2020-05-04] MEDS: FAMOTIDINE 20 MG TAB OG-TUBE SCH (07:59)
[2020-05-04] MEDS: ZINC SULFATE 220 MG CAP PO SCH (07:59)
[2020-05-04] MEDS: ENOXAPARIN 30 MG/0.3 ML SYRINGE SQ SCH (07:59)
[2020-05-04] MEDS: PIPERACILLIN-TAZOBACTAM 3.375 GM in SODIUM CHLORIDE 0.9% 100 ML IVPB SCH ×2 (07:59→20:31)
--- NOTE | 2020-05-04 08:01 | XR ---
EXAMINATION TYPE: XR chest 1V portable DATE OF EXAM: 05/04/2020 COMPARISON: 05/03/2020 HISTORY: SOB, Follow Up FINDINGS: Indwelling tubes and catheters are unchanged. Increasing left lower lobe infiltrate. Persistent but improving right lower lobe infiltrate. Stable appearance of the cardio-mediastinal structures at this time. Pleural effusion unchanged. IMPRESSION: 1. Increasing left lower lobe infiltrate. Persistent but improving right lower lobe infiltrate.
--- NOTE | 2020-05-04 08:21 | PN ---
PROGRESS NOTE Mrs. Mccoy is in sinus rhythm on amiodarone 200 mg b.i.d. She is still on a vent. I am recommending a full heparinization as opposed to 30 mg of Lovenox and I will request Dr. Motta to consider this if he does not intend to perform any procedures. Vitals are stable. Physical exam was not performed. However, from a coronary disease standpoint, no intervention is necessary at this time. We will continue amiodarone. Prognosis remains guarded. MMODL / IJN: [id number] /
[2020-05-04 10:11] LABS: Ferritin 2432.6 ng/mL (10.0-291.0)
[2020-05-04 10:45] LABS: Calcium 7.8 mg/dL (8.4-10.2); Potassium 5.9 mmol/L (3.5-5.1)
[2020-05-04 11:31] LABS: Glucose,Whole Blood 143 mg/dL (75-99)
[2020-05-04] MEDS: DAPTOmycin 750 MG in SODIUM CHLORIDE 0.9% 50 ML IVPB SCH (13:51)
[2020-05-04] MEDS: THIAMINE 100 MG TAB PO SCH (13:51)
[2020-05-04] MEDS: MULTIVITAMINS, THERA 1 EACH TAB PO SCH (13:51)
[2020-05-04] MEDS: FOLIC ACID 1 MG TAB PO SCH (13:51)
--- NOTE | 2020-05-04 14:08 | P.GSCN ---
History of Present Illness Consult date: 05/04/20 History of present illness: CHIEF COMPLAINT: Shortness of breath HISTORY OF PRESENT ILLNESS: This is a 69-year-old female who presented to the hospital on April 11 for cough, fever, shortness of breath, decreased appetite and intermittent diarrhea. Patient was diagnosed with Covid 19 pneumonia. Patient has received treatment for Covid 19 pneumonia. However her hypoxemia continued to worsen and she required transfer to the ICU and was intubated on 04/24/2020. Patient has had prolonged hospitalization. She is still on mechanical ventilation. She also had renal failure and has been receiving hemodialysis. Patient has not been tolerating weaning trials. Therefore surgical consult was placed for trach and PEG tube placement. PAST MEDICAL HISTORY: See list. PAST SURGICAL HISTORY: See list. MEDICATIONS: See list. ALLERGIES: See list. SOCIAL HISTORY: No illicit drug use. REVIEW OF SYSTEMS: Not obtained patient is on mechanical ventilation and sedated PHYSICAL EXAM: VITAL SIGNS: Reviewed GENERAL: Well-developed in no acute distress. HEENT: No sclera icterus. Extraocular movements grossly intact. Moist buccal mucosa. Head is atraumatic, normocephalic. No nasal drainage. ABDOMEN: Soft. Nondistended. Nondistended NEUROLOGIC: patient on mechanical ventilation and sedated LABORATORY DATA: WBC 31.6 hemoglobin 11.9 Sodium 133 potassium 5.9 creatinine 4.23 BUN 98 Albumin 2.1 IMAGING: ASSESSMENT: 1. Severe protein calorie malnutrition 2. Acute hypoxic respiratory failure secondary to Covid 19 pneumonitis. Patient intubated and on mechanical ventilation on 04/24/2020 PLAN: -Patient scheduled for trach and PEG tube placement tomorrow, 05/05/[address] Herman -Keep patient nothing by mouth after midnight Thank you for this consultation Physician Sedimentationist note has been reviewed by physician. Signing provider agrees with the documented findings, assessment, and plan of care. Past Medical History Past Medical History: Hypertension, Thyroid Disorder History of Any Multi-Drug Resistant Organisms: None Reported Past Surgical History: Hysterectomy Additional Past Surgical History / Comment(s): bilat post tib tendon repair, Past Anesthesia/Blood Transfusion Reactions: No Reported Reaction Smoking Status: Former smoker Medications and Allergies Home Medications Medication Instructions Recorded Confirmed Type Levothyroxine Sodium [Synthroid] 50 mcg PO DAILY 04/11/20 04/11/20 History Losartan/Hydrochlorothiazide 1 tab PO DAILY 04/11/20 04/11/20 History [Losartan-Hctz 50-12.5 mg Tab] Allergies Allergy/AdvReac Type Severity Reaction Status Date / Time No Known Allergies Allergy Verified 04/11/20 17:17 Surgical - Exam Vital Signs Temp Pulse Resp BP Pulse Ox 99.6 F 81 18 107/69 93 L 04/11/20 16:20 04/11/20 16:20 04/11/20 16:20 04/11/20 16:20 04/11/20 16:20 Results - Labs 05/04/20 04:45 05/04/20 10:26 Abnormal Lab Results - Last 24 Hours (Table) 05/03/20 05/03/20 05/04/20 Range/Units 16:52 20:20 01:03 WBC (3.8-10.6) k/uL Neutrophils # (Manual) (1.3-7.7) k/uL Lymphocytes # (Manual) (1.0-4.8) k/uL D-Dimer (<0.60) mg/L FEU ABG pH (7.35-7.45) ABG pO2 (83-108) mmHg ABG O2 Saturation (94-97) % Sodium (137-145) mmol/L Potassium (3.5-5.1) mmol/L Carbon Dioxide (22-30) mmol/L BUN (7-17) mg/dL Creatinine (0.52-1.04) mg/dL Glucose (74-99) mg/dL POC Glucose (mg/dL) 126 H 134 H 142 H (75-99) mg/dL Calcium (8.4-10.2) mg/dL Ferritin (10.0-291.0) ng/mL Lactate Dehydrogenase (313-618) U/L 05/04/20 05/04/20 05/04/20 Range/Units 04:33 04:45 04:45 WBC 31.6 H (3.8-10.6) k/uL Neutrophils # (Manual) 30.30 H (1.3-7.7) k/uL Lymphocytes # (Manual) 0.63 L (1.0-4.8) k/uL D-Dimer (<0.60) mg/L FEU ABG pH (7.35-7.45) ABG pO2 (83-108) mmHg ABG O2 Saturation (94-97) % Sodium (137-145) mmol/L Potassium (3.5-5.1) mmol/L Carbon Dioxide (22-30) mmol/L BUN (7-17) mg/dL Creatinine (0.52-1.04) mg/dL Glucose (74-99) mg/dL POC Glucose (mg/dL) 137 H (75-99) mg/dL Calcium (8.4-10.2) mg/dL Ferritin 2432.6 H (10.0-291.0) ng/mL Lactate Dehydrogenase 958 H (313-618) U/L 05/04/20 05/04/20 05/04/20 Range/Units 05:19 06:00 07:38 WBC (3.8-10.6) k/uL Neutrophils # (Manual) (1.3-7.7) k/uL Lymphocytes # (Manual) (1.0-4.8) k/uL D-Dimer 7.38 H (<0.60) mg/L FEU ABG pH 7.29 L (7.35-7.45) ABG pO2 73 L (83-108) mmHg ABG O2 Saturation 93.5 L (94-97) % Sodium (137-145) mmol/L Potassium (3.5-5.1) mmol/L Carbon Dioxide (22-30) mmol/L BUN (7-17) mg/dL Creatinine (0.52-1.04) mg/dL Glucose (74-99) mg/dL POC Glucose (mg/dL) 136 H (75-99) mg/dL Calcium (8.4-10.2) mg/dL Ferritin (10.0-291.0) ng/mL Lactate Dehydrogenase (313-618) U/L 05/04/20 05/04/20 Range/Units 10:26 11:29 WBC (3.8-10.6) k/uL Neutrophils # (Manual) (1.3-7.7) k/uL Lymphocytes # (Manual) (1.0-4.8) k/uL D-Dimer (<0.60) mg/L FEU ABG pH (7.35-7.45) ABG pO2 (83-108) mmHg ABG O2 Saturation (94-97) % Sodium 133 L (137-145) mmol/L Potassium 5.9 H (3.5-5.1) mmol/L Carbon Dioxide 21 L (22-30) mmol/L BUN 98 H (7-17) mg/dL Creatinine 4.23 H (0.52-1.04) mg/dL Glucose 136 H (74-99) mg/dL POC Glucose (mg/dL) 143 H (75-99) mg/dL Calcium 7.8 L (8.4-10.2) mg/dL Ferritin (10.0-291.0) ng/mL Lactate Dehydrogenase (313-618) U/L Microbiology - Last 24 Hours (Table) 05/03/20 10:00 Blood Culture Gram Stain - Preliminary Blood 05/03/20 10:00 Urine Culture - Preliminary Urine,Catheterized Gram Neg Bacilli Brittney albicans 05/03/20 10:00 Blood Culture - Final Blood 05/03/20 11:10 Gram Stain - Preliminary Sputum Sputum Culture - Preliminary Brittney albicans 04/30/20 12:20 Blood Culture - Preliminary Blood No Growth after 72 hours Diabetes panel 05/04/20 Range/Units 10:26 Sodium 133 L (137-145) mmol/L Potassium 5.9 H (3.5-5.1) mmol/L Chloride 100 (98-107) mmol/L Carbon Dioxide 21 L (22-30) mmol/L BUN 98 H (7-17) mg/dL Creatinine 4.23 H (0.52-1.04) mg/dL Glucose 136 H (74-99) mg/dL Calcium 7.8 L (8.4-10.2) mg/dL Calcium panel 05/04/20 Range/Units 10:26 Calcium 7.8 L (8.4-10.2) mg/dL Pituitary panel 05/04/20 Range/Units 10:26 Sodium 133 L (137-145) mmol/L Potassium 5.9 H (3.5-5.1) mmol/L Chloride 100 (98-107) mmol/L Carbon Dioxide 21 L (22-30) mmol/L BUN 98 H (7-17) mg/dL Creatinine 4.23 H (0.52-1.04) mg/dL Glucose 136 H (74-99) mg/dL Calcium 7.8 L (8.4-10.2) mg/dL Adrenal panel 05/04/20 Range/Units 10:26 Sodium 133 L (137-145) mmol/L Potassium 5.9 H (3.5-5.1) mmol/L Chloride 100 (98-107) mmol/L Carbon Dioxide 21 L (22-30) mmol/L BUN 98 H (7-17) mg/dL Creatinine 4.23 H (0.52-1.04) mg/dL Glucose 136 H (74-99) mg/dL Calcium 7.8 L (8.4-10.2) mg/dL
--- NOTE | 2020-05-04 14:38 | P.PN ---
Subjective Progress Note Date: 05/04/20 Principal diagnosis: Acute hypoxic respiratory failure secondary to covid 19 pneumonitis This 69-year-old white female patient who was admitted to the hospital on 04/11/2020 when she came in for evaluation of 1 week history of cough, fever, shortness of breath, decreased appetite and intermittent episodes of diarrhea. Patient was diagnosed with COVID 19 pneumonia, this was done via outpatient testing through the health Department. Patient initially presented at [facility], she was hypoxemic with a pulse ox in the 80s and she was placed on high flow oxygen and transferred to the [facility]. CT angiogram of the chest showed no evidence of pulmonary embolism, however it showed evidence of bilateral interstitial infiltrates consistent with COVID 19 pneumonitis. Patient completed her Remdesivir treatment on 04/16/2020, she received 2 units of convalescent plasma, she remains on IV steroids with IV Solu-Medrol. In view of her worsening hypoxemia patient was transferred to the intensive care unit, she is intubated on 04/24/2020 05/02/2020, the patient remains intubated on a mechanical ventilator. She remains on propofol which is running at 35 mcg/kg per minute and the patient is on fentanyl running at 1 g per KG per hour. The patient is well sedated and, comfortable suggest a mechanical ventilator. Her vent settings are essentially the same. The patient is on a VC plus mode with a rate of 32 and FiO2 of 50% with a PEEP of 15 and a tidal volume of 400. Peak airway pressures 31, static pressures probably 38. Blood gas showed a pH of 7.27 with a pCO2 of 51 and pO2 of 69 and the blood is essentially stable and comparable to yesterday's value. The patient has no major secretions. The chest x-ray stable with diffuse breath and pulmonary infiltrates and there is no evidence of pneumothorax. ET tube is in good location. She remains on Solu-Medrol 60 mg every 6 hours inpatient LDH level is down to 792 and the CRP level is down to 16.4 and the d-dimer today is at 3.47. She is afebrile. She has a small amount of diarrhea and fecal management system is in place. Urine output is minimal and the patient is re ceiving dialysis periodically. Her last bout of dialysis was yesterday. This was done successfully. Total of 3 L of ultrafiltration was performed without causing any significant hemodynamic changes. In fact she became slightly hypoxic as the patient was being weaned off the propofol and ultimately propofol was restarted. Triglyceride levels are at 285. She is receiving enteral feeding for nutritional support. She remains on vital high protein at the rate of 27 mL an hour and she is essentially at goal. She weighs was restarted yesterday and there is no significant residuals. No emesis. She was having issues with frequent PVCs and short runs of atrial fibrillation yesterday. Based on that, cardiology restarted the patient on amiodarone drip at 0.5 mg shows and a Cardizem drip has been discontinued. Liver function tests from today shows an AST of 48, ALT of 148 and an alkaline phosphatase of 72. Reevaluated today on 05/03/2020, patient remains intubated and mechanically tonya tilated. She is presently on tidal volume was 420, volume control plus, assist control rate of 32, FiO2 50%, and PEEP is 12. Peak airway pressure is 32, plateau pressure is 25. ABG this morning showed a pO2 of 77 pCO2 of 51 pH of 7.2. 2. Patient remains on propofol is also on fentanyl, both were placed on hold this morning, and soon as the patient was waking up, her blood pressure was in the 200 range systolic. Patient was not awake enough to follow any instructions, hence I recommended that she remains back on propofol and fentanyl. Patient is receiving dialysis through a right hemodialysis catheter in the groin. Patient is receiving enteral feeding/Nepro . Her white count is noted to be elevated today, and her pro calcitonin level was also noted to be a bit elevated, hence I recommended adding Zosyn this will be added empirically, and cultures were ordered. Patient is a good set up for catheter sepsis. Patient was intubated on 04/24/2020, and over the next few days if the patient does not tolerate weaning may have to consider tracheostomy and PEG tube placement. Her ABG remains marginal and her PEEP remains relatively high at 12, FiO2 is at 50%, but she is nowhere near weaning at this point. WBC count today is up to 31.3, hemoglobin is 11.3. Electrolytes showed elevated potassium of 5.9, and the patient had a BUN of 108 creatinine 4.87, she is about to be di alyzed in the next 15 minutes. Inflammatory markers showed LDH of 891 C- reactive protein is 9.7, ferritin is 2220. Chest x-ray continues to show bilateral interstitial infiltrates Reevaluated today on 05/04/2020 patient remains in the ICU, intubated and mechanically ventilated. Patient is on assist control rate of 32, volume control +420, inspiratory time is 0.90 seconds, FiO2 50% and PEEP of 12. ABG showed a pO2 of 73 pCO2 of 44 pH of 7.29. PEEP was decreased down to 10. The other vent settings as noted. Patient is on propofol at 40 mcg/kg/m, fentanyl at 20 mcg/kg/h, his also on IV fluid at KVO, receiving enteral feeding. Patient will likely be dialyzed again depending on her potassium today. Her arterial line does not seem to be functional today, hence a new arterial line was placed in the right radial artery. Chest x-ray continues to show bilateral interstitial infiltrates. Slightly worsening left lower lobe infiltrate, but improving right lower lobe infiltrate. Electrolytes are normal except for potassium of 5.9. BUN is 98 creatinine 4.23. LDH and C-reactive protein are improving compared to yesterday. Blood cultures sputum cultures and urine cultures are pending these were sent yesterday again. Sputum culture so far is showing Brittney albicans. And her urine is showing Brittney and gram-negative bacilli. Patient is being followed by infectious disease on the case. Presently on Zosyn and daptomycin. Objective - Vital Signs Vital signs: Vital Signs Temp 96.7 F L 05/04/20 13:22 Pulse 67 05/04/20 13:22 Resp 28 H 05/04/20 13:22 BP 121/48 05/04/20 13:22 Pulse Ox 91 L 05/04/20 13:00 Intake & Output 05/03/20 05/04/20 05/04/20 18:59 06:59 18:59 Intake Total 1401.242 8541.362 1255.847 Output Total 6325 55 2325 Balance -5035.593 1113.362 -1069.153 Weight 120.1 kg Intake: IV 287 301 489 0.9% KVO 260 180 140 [place] flush 27 21 21 Piperacillin-Tazobactam 3 100 328 .375 gm In Sodium Chloride 0.9% 100 ml @ 25 mls/hr IVPB Q12HR [facility] Rx #:[id number] Intake, IV Titration 391.407 590.362 287.847 Amount Piperacillin-Tazobactam 3 100 .375 gm In Sodium Chloride 0.9% 100 ml @ 25 mls/hr IVPB Q12HR [facility] Rx #:[id number] fentaNYL (PF) 1,000 mcg 100 200 97.128 In Sodium Chloride 0.9% 80 ml @ Per Protocol IV . Q0M [facility] Rx#:[id number] propofoL 1,000 mg In 191.407 390.362 190.719 Empty Bag 1 bag @ Titrate IV .Q0M [facility] Rx#: [id number] Tube Feeding 221 187 119 Hemodialysis 300 300 Other 90 90 60 Output: Urine 25 55 25 Hemodialysis 3300 2300 Other 3000 Other: Voiding Method Indwelling Catheter Indwelling Catheter Indwelling Catheter # Bowel Movements 1 ABP, PAP, CO, CI - Last Documented Arterial Blood Pressure 121/47 - Exam Physical Exam: Revealed a 69-year-old female , intubated and mechanically ventilated. Head: Atraumatic normocephalic. The tracheal tube and orogastric tubes are intact. HEENT: PERRLA,, EOMI, nonicteric. Moist mucous membranes Chest: [Symmetrical chest expansion, crackles at the bases persists. Cardiac Exam: [Normal S1 and S2, no S3 gallop, no murmur.] Abdomen: [Soft, nontender, no megaly, no rebound, no guarding, normal bowel sounds.] Extremities: [No clubbing, 2+ bipedal edema, no cyanosis.] Neurological Exam: [Not assessed, patient is sedated, she is on propofol and fentanyl. Psychiatric: Could not be assessed. Skin: No rashes. - Labs CBC & Chem 7: 05/04/20 04:45 05/04/20 10:26 Labs: Abnormal Lab Results - Last 24 Hours (Table) 05/03/20 05/03/20 05/04/20 Range/Units 16:52 20:20 01:03 WBC (3.8-10.6) k/uL Neutrophils # (Manual) (1.3-7.7) k/uL Lymphocytes # (Manual) (1.0-4.8) k/uL D-Dimer (<0.60) mg/L FEU ABG pH (7.35-7.45) ABG pO2 (83-108) mmHg ABG O2 Saturation (94-97) % Sodium (137-145) mmol/L Potassium (3.5-5.1) mmol/L Carbon Dioxide (22-30) mmol/L BUN (7-17) mg/dL Creatinine (0.52-1.04) mg/dL Glucose (74-99) mg/dL POC Glucose (mg/dL) 126 H 134 H 142 H (75-99) mg/dL Calcium (8.4-10.2) mg/dL Ferritin (10.0-291.0) ng/mL Lactate Dehydrogenase (313-618) U/L 05/04/20 05/04/20 05/04/20 Range/Units 04:33 04:45 04:45 WBC 31.6 H (3.8-10.6) k/uL Neutrophils # (Manual) 30.30 H (1.3-7.7) k/uL Lymphocytes # (Manual) 0.63 L (1.0-4.8) k/uL D-Dimer (<0.60) mg/L FEU ABG pH (7.35-7.45) ABG pO2 (83-108) mmHg ABG O2 Saturation (94-97) % Sodium (137-145) mmol/L Potassium (3.5-5.1) mmol/L Carbon Dioxide (22-30) mmol/L BUN (7-17) mg/dL Creatinine (0.52-1.04) mg/dL Glucose (74-99) mg/dL POC Glucose (mg/dL) 137 H (75-99) mg/dL Calcium (8.4-10.2) mg/dL Ferritin 2432.6 H (10.0-291.0) ng/mL Lactate Dehydrogenase 958 H (313-618) U/L 05/04/20 05/04/20 05/04/20 Range/Units 05:19 06:00 07:38 WBC (3.8-10.6) k/uL Neutrophils # (Manual) (1.3-7.7) k/uL Lymphocytes # (Manual) (1.0-4.8) k/uL D-Dimer 7.38 H (<0.60) mg/L FEU ABG pH 7.29 L (7.35-7.45) ABG pO2 73 L (83-108) mmHg ABG O2 Saturation 93.5 L (94-97) % Sodium (137-145) mmol/L Potassium (3.5-5.1) mmol/L Carbon Dioxide (22-30) mmol/L BUN (7-17) mg/dL Creatinine (0.52-1.04) mg/dL Glucose (74-99) mg/dL POC Glucose (mg/dL) 136 H (75-99) mg/dL Calcium (8.4-10.2) mg/dL Ferritin (10.0-291.0) ng/mL Lactate Dehydrogenase (313-618) U/L 05/04/20 05/04/20 Range/Units 10: 11:29 WBC (3.8-10.6) k/uL Neutrophils # (Manual) (1.3-7.7) k/uL Lymphocytes # (Manual) (1.0-4.8) k/uL D-Dimer (<0.60) mg/L FEU ABG pH (7.35-7.45) ABG pO2 (83-108) mmHg ABG O2 Saturation (94-97) % Sodium 133 L (137-145) mmol/L Potassium 5.9 H (3.5-5.1) mmol/L Carbon Dioxide 21 L (22-30) mmol/L BUN 98 H (7-17) mg/dL Creatinine 4.23 H (0.52-1.04) mg/dL Glucose 136 H (74-99) mg/dL POC Glucose (mg/dL) 143 H (75-99) mg/dL Calcium 7.8 L (8.4-10.2) mg/dL Ferritin (10.0-291.0) ng/mL Lactate Dehydrogenase (313-618) U/L Microbiology - Last 24 Hours (Table) 05/03/20 11:55 Blood Culture - Preliminary Blood No Growth after 24 hours 05/03/20 10:00 Blood Culture Gram Stain - Preliminary Blood 05/03/20 10:00 Urine Culture - Preliminary Urine,Catheterized Gram Neg Bacilli Brittney albicans 05/03/20 10:00 Blood Culture - Final Blood 05/03/20 11:10 Gram Stain - Preliminary Sputum Sputum Culture - Preliminary Brittney albicans 04/30/20 12:20 Blood Culture - Preliminary Blood No Growth after 72 hours Assessment and Plan Assessment: Impression: Acute hypoxic respiratory failure secondary to covid 19 pneumonitis. Requiring intubation and mechanical ventilation on 04/24/2020, not quite ready for any extubation or even weaning trials at this point. And considering the patient will be difficult to wean and extubate even in the next few days, we will go ahead and proceed with surgical consultation for possible tracheostomy and PEG tube placement. History of hysterectomy. Remote history of nicotine dependence. Obesity with body index of 35. Elevated d-dimer but negative for pulmonary embolism. Paroxysmal atrial fibrillation with RVR, Acute kidney injury from Covid 19 infection requiring hemodialysis. Elevated liver enzymes secondary to viral pneumonia. Elevated inflammatory markers continue to viral pneumonia. Recommendation: Consult general surgery for tracheostomy and PEG tube placement. Decrease PEEP to 10 however maintain the remaining vent settings the same Continue to monitor in the ICU. Not ready for any weaning at this point. Continue mechanical ventilation, GI prophylaxis, nutritional/enteral feeding. Nutritional support. Continue the present cocktail for covid 19 pneumonitis. Finished her full course of remdesivir convalescent plasma, was given 2. Continue Solu-Medrol, presently on 60 mg IV push every 6 hours. and continue, vitamin C, vitamin D, and zinc. Continue Lovenox. 30 mg subcu daily. Infectious disease to address antibiotics and her most recent sputum and urine cultures. We'll continue to follow in the ICU Critical care time is 35 minutes. Not including time spent on procedures. Time with Patient: Greater than 30
--- NOTE | 2020-05-04 15:05 | PN ---
PROGRESS NOTE The patient is seen for followup for acute kidney injury, currently hemodialysis dependent. Patient has underlying COVID-19 pneumonia. She remains on the vent. Case is discussed with nursing staff. PHYSICAL EXAMINATION: Vital signs are reviewed. Blood pressure 112/45, heart rate 67 per minute. Patient is afebrile. She is off the amiodarone and Cardizem drips. FiO2 at 50%. Tolerating tube feedings. There continues to be edema of lower extremities. Abdomen has been soft. [employer] exam cannot be performed. LABS: Labs show sodium 133, potassium 5.9, chloride 100, CO2 is 21, BUN 98, creatinine 4.23. ASSESSMENT: 1. Acute kidney injury, acute tubular necrosis, hemodialysis dependent and oliguric. The patient will be dialyzed again today as she remains hyperkalemic and we will plan for possible treatment again tomorrow. 2. Hyperkalemia associated with acute kidney injury, hypercatabolic state. Expect improvement with dialysis. Blood sugars are not elevated. 3. COVID-19 pneumonia, status post remdesivir, maintained on steroids. 4. Acute hypoxic respiratory failure secondary to COVID pneumonia and some degree of volume overload as well. 5. Atrial fibrillation with rapid ventricular response, currently with controlled ventricular response, status post amiodarone and Cardizem drip. PLAN: Hemodialysis today and possible treatment again in a.m. MMMINA / ROSA: [id number] /
--- NOTE | 2020-05-04 15:17 | P.PN ---
Subjective Progress Note Date: 05/04/20 Ms. Mccoy is a 69-year-old female with a past medical history of hypertension and thyroid disorder admitted to the hospital for acute hypoxic respiratory failure secondary to COVID 19 pneumonia. Patient has extensive bilateral interstitial pneumonia. She is on a low and pulmonary Dr. Mathews is following the patient. Patient received a convalescent plasma, is also on Remdesivir. On 04/17/2020- This morning patient was evaluated in the ICU. Patient is comfortably sitting in a chair states that her breathing is improving gradually. She denies having any chest pain or palpitations. No cough or hemoptysis. She denies having any swelling or for lower extremities. No abdominal pain nausea vomiting or diarrhea. She denies having any dysuria or hematuria, she has a Bryan's catheter in place. On reviewing her vitals temperature 98.1 heart rate 75 is 5817, blood pressure 1:30 bradycardia. Saturating at 96% on a Aervo -60%. On 04/18/2020 - patient was seen and examined in the ICU. Patient is sitting in a chair by the bedside, states that her breathing has worsened compared to yesterday. Patient is on high flow Airvo, saturating in the low 90s. She denies having any chest pain or palpitations. She complains of cough that is nonproductive. Patient had a chest x-ray done showing stable bilateral air space disease. As the patient was having few episodes of tachycardia, she was started on Lopressor this morning. Patient's inflammatory markers are noted to be high. On reviewing her vitals saturating at 90% on high flow Airvo, heart rate 70s to 80s, respiratory rate 20-25, blood pressure 106-67. In reviewing her labs white count of 29.3, hemoglobin 16.8, platelets 369. D-dimer 6.99, LDH 2969, CRP 63.9. On 04/19/2020 - patient is seen and examined in the ICU. She is currently on BiPAP, as her respiratory status has worsened compared to yesterday. Patient denies having any chest pain or palpitations. No abdominal pain nausea vomiting or diarrhea. No dysuria or hematuria. She is on BiPAP 14/6 and 100% FiO2. On reviewing her vitals temperature is 99.2, respiratory rate is 25, heart rate 70, blood pressure 10 9 x 71. Reviewing the labs white count of 27.3, hemoglobin 17.4, platelets 314. Sodium 133, potassium 4.4, chloride 90, bicarbonate 35, BUN 31, creatinine 0.72. Ferritin 3195, CRP 217 and LDH 2747. 04/20/2020 This is a pleasant 69 years old female with multiple medical problems was admitted for bilateral Covid pneumonia, she is currently on aervo at 90%/60 L of oxygen, saturating 89%. Rest of Vitas looks stable Also she is on BiPAP All the night. She is able to eat and drink, no pressors She is on normal saline at 75 mL/h with adequate urine output Patient is currently ON Medrol 40 mg twice daily, Lovenox 60 mg twice Mary and vitamin C and zinc. She finished her remdisvir and convelecent plasma. 04/21/2020 Patient remains in the ICU bed and respiratory support for her bilateral Covid pneumonia. She still dyspneic especially with exertion and she still needs BiPAP during the day shift. Also she had a fever today of 102.2. Patient is empirically on Zosyn/calcitonin check today showing normal level at 0.07. She has leukocytosis of 29K. I agree with Zosyn and I recommended to continue with that for now. Also patient is on steroids 60 mg every 6 hours. As there is no more significant progress progress in her clinical picture Glucose is 123 and inflammatory markers still elevated 04/22/2020 this is a pleasant 69 yo F who is admitted to the ICU for covid pneumonia, she is still on BiPAP dependant , TNP is started for her nutrition for this reasone. her oxygen saturation is on low 90s% cxr: diffuse interstitial opacities and worsening airspace disease in the left lower lung. consider interstitial edema wbc is sligtly less 26K, she is currently continued on zosyn , and solumedrol 60 mg. and normal saline increased to 150 ml/hr. and lovenox 60 mg BID she finised her Remdisvir and convelescent Plasma. 04/23/2020 Patient looks very tired, she came Off the BiPAP today morning and she was placed back on airvo at 60 L she is back and forth between BiPAP and airvo, however she probably will need BiPAP at night Inflammatory markers and d-dimer increased, ferritin 3100 up to 3700 and d-dimer 3 up to 5 Chest x-ray showing bilateral middle and lower infiltrates with slight improvement Treatments with antibiotics Zosyn, fluconazole was added today. Also she is also on Solu-Medrol 60 mg, normal sling was decreased to 50 mL per hour, Lovenox 60 mg twice daily, TPN and she is on vitamin C and zinc 04/24/2020 Patient today her clinical condition deteriorated, she was hypoxic this morning with oxygen saturation in the 70s percent and she was tachycardic with heart rate 140-150, patient ended up being intubated in the morning and she was in an you onset of A. fib and started on Cardizem drip on 15 mg however her heart rate was still elevated, cardiology team were consulted, blood pressure was on the low normal side. Amiodarone drip was started. Cardiology team and Cardizem drip was shut to 15 mg/h. Also insulin drip for hyperglycemia with sugar more than 300. 04/25/2020 Patient was intubated yesterday for deteriorated respiratory status, ABG showing elevated pCO2 on 496 with acidosis. 7.0 and 7.1. Oxygen saturation is acceptable at 107. She remains on mechanical ventilation managed by pulmonary/critical care team, currently her bruits and draped with before meals at 40 to help with her acidosis. Her creatinine worsened today 0.5 up to 1.3, with potassium elevated as well as 5.5 nephrology team were consulted who ordered insulin/dextrose 50%, sodium bicarb 1 and Lasix 80 mg 1. Environmental Protection Specialist recommended hemodialysis and no improvement in 24 hours Chest x-ray showing pneumonia and edema which is stable from yesterday. Sugar improved and we could switch her insulin drip to insulin sliding scale A. fib is improved and converted to sinus rhythm with amiodarone which is swi tched to [facility] per [employer]ner, She Is Already on Anticoagulation 04/26/20 Patient remains in the ICU sedated and intubated with pulmonary/ critical care team following the case closely. Showing trending down leukocytosis to 20 6.1K. Creatinine up to 2.8, Patient is developing anuria with acute kidney injury, nephrology evaluation is appreciated and hemodialysis is initiated. Chest x-ray showing interstitial infiltrate especially in the mid to lower lungs Echocardiogram showed ejection fraction of 55-60%, and atrial fibrillation improved yesterday with amiodarone She remains on Solu-Medrol, Zosyn and fluconazole, normal sinus 50 and vitamin C and zinc Lovenox dose was adjusted to renal function down to 50 mg daily Prognosis remains guarded 04/27/2020 Patient with bilateral: With pneumonia that her purse and eventually got intubated, pulmonary/critical care team and several consultants are following the case, vent management as per pulmonary team. She has leukocytosis of 13.8 K. Creatinine today is 3.37 Patient undergoing hemodialysis for the last 2-3 days for acute kidney injury and [facility] Patient A. fib heart rate becomes uncontrolled today and her amiodarone to switch to a drip. Other medication including Solu-Medrol 60 mg, vitamin C and zinc, Zosyn and fluconazole, she is on normal saline at 50 mL/h and Lovenox dose dropped to 30 mg daily 04/28/2020 Patient remains intubated and sedated in the ICU, followed closely by critical care team. Vital showing tachycardia and tachypnea. WBC is 30 3.5K. Creatinine 3.8, sodium 134. Sugar is controlled. Inflammatory markers are elevated. She is undergoing hemodialysis today Chest x-ray from today showing no change from last one yesterday Medication-hernandez he remains on Solu-Medrol, Zosyn, 30 mg of Lovenox daily which is renal dose and amiodarone drip. Normal saline at 50 mm was discontinued today 04/29/2020 This is a pleasant 69 years old female with bilateral, with pneumonia. Patient remains in the ICU sedated and intubated with pulmonary/critical care team following the case closely. Normal sedation holiday for the patient currently She already finished her treatment with remdesivir and convalescent plasma, and currently she is on vitamin C and zinc. She was on steroids in the form of high dose of Solu-Medrol 60 mg and Zosyn and fluconazole for possible bacteria and fungal infection associated with viral infection. Patient course was complicated by renal failure and new or so she underwent hemodialysis, last HD was yesterday, she is kept on renal dose of Lovenox 30 mg daily. Other compli cation is atrial fibrillation with RVR which is currently controlled with oral amiodarone and low-dose of Cardizem drip. Patient condition remains critical and she kept on mechanical ventilation with close monitoring Procalcitonin is unchanged yesterday at 0.39 compared to one week ago at 0.39. We'll order another test tomorrow 04/30/2020 Patient is seen and evaluated and follow-up continues to remain closely monitored in the ICU. Patient continues to be on a mechanical ventilator intubated and sedated currently off paralytics. Patient being followed by multiple medical consultations including cardiology, pulmonary, nephrology. Patient currently receiving hemodialysis for ultrafiltration and became extremely hypotensive maxing out on pressors and dialysis was aborted. Patient prognosis is extremely guarded and poor at this time. Patient continues to be on IV steroids along with Lovenox vitamin C and D and zinc supplements and will continue. Patient is also maintained on IV antibiotics in the form of Zosyn and vancomycin being added. Patient currently off of IV amiodarone and IV Cardizem and transitioned to oral amiodarone and will continue at this time. Chest x-ray continues to show interstitial pneumonia with bilateral basilar infiltrates and tiny effusions. She also had an abdominal x-ray showing nonspecific abdomen with no diagnostic evidence of obstruction. White blood count today is 27.9, hemoglobin is stable at 12.7, d-dimer is elevated although slowly trending down at 3.04, current sodium is 129, potassium is 5.9, BUN is 103 with a creatinine of 4.97. Attempts at ultrafiltration today his potassium is elevated. Nephrology is following closely. 05/01/20 Patient remains in the ICU intubated on mechanical ventilation with pulmonary/critical care team following closely. Patient today underwent sedation holiday and into hours she started becoming agitated and developed atrial fibrillation's with RVR, she has to be placed back on amiodarone drip and Cardizem drip 10 mg per hour before it was converted to sinus rhythm again Currently she is tachypneic with a breathing rate around 32. She is saturating 91% on FiO2 of 60% Leukocytosis 27.9 yesterday and 24.6K today. D-dimer stable at 3.7 so she kept on the same dose of Lovenox Inflammatory markers including LDH, protein and C-reactive protein went up slightly today. Patient remains anuric and undergoing hemodialysis She remains on Zosyn and fluconazole, she got 2 doses of IV vancomycin yesterday and today. Also she is on zinc and vitamin C, Lovenox 30 mg daily. Diflucan was stopped 05/02/2020 Patient remains intubated and sedated in the ICU was followed closely by pulmonary/critical care team and for vent management. Patient also with A. fib on several occasions needing Cardizem and amiodarone, cardiology following the patient Patient is still undergoing hemodialysis for anuria and acute kidney injury, nephrology team on the case x-ray showed improvement bibasilar infiltrates She is on some Medrol 60 mg daily, antibiotics were stopped 2 days ago. She is also on Lovenox 30 mg daily, vitamin C and zinc 05/03/2020 Patient is seen this morning currently remains in the ICU receiving hemodialysis today. Multiple medical consultations following. Patient remains on mechanical vent and is intubated and sedated and will continue at this time. D-dimer is elevated at 5.50, sodium is 132, potassium is 5.9, BUN is 108, current creatinine is 4.87. White blood count is 31.3 and hemoglobin is 11.3. Patient blood pressure is elevated as well and has been continuing with daily dialysis. Chest x-rays today show interstitial infiltrates or edema in the mid and lower lungs continue with slight improvement on the left. Patient remains on IV antibiotics in the form of Zosyn and will continue at this time. Infectious disease is following as well. 05/04/2020 Patient is seen in follow-up currently remains in the ICU. Surgical consult was placed for trach and PEG tube placement as patient continues to be on tube feedings and continues to be on a mechanical vent. Dimer elevated at 7.38. Nephrology also following as patient has been receiving hemodialysis and current creatinine today is 4.23 with a BUN of 98 and potassium is 5.9. Patient will be made nothing by mouth and tube feedings held for surgery tomorrow. Family continues to wish for full CODE STATUS. Sputum cultures preliminary showing Brittney albicans and urine showing gram-negative bacilli with Brittney albicans. Infectious disease is following. Patient is maintained on IV antibiotics in the form of Zosyn and daptomycin being added. Will await culture finalization. Review of systems: Unable to obtain as patient's currently intubated and sedated Active Medications Acetaminophen (Acetaminophen Tab 325 Mg Tab) 650 mg PO Q6HR PRN PRN Reason: Mild Pain or Fever > 100.5 Last Admin: 04/21/20 04:34 Dose: 650 mg Documented by: Albuterol Sulfate (Albuterol Hfa Inhaler) 2 puff INHALATION RT-QID [facility] Last Admin: 05/04/20 12:43 Dose: 2 puff Documented by: Amiodarone HCl (Amiodarone 200 Mg Tab) 200 mg PO BID [facility] Last Admin: 05/04/20 07:58 Dose: 200 mg Documented by: Ascorbic Acid (Ascorbic Acid 500 Mg Tab) 250 mg PO DAILY [facility] Last Admin: 05/04/20 07:58 Dose: 250 mg Documented by: Chlorhexidine Gluconate (Chlorhexidine Gluconate 15 Ml Cup) 15 ml MUCOUS MEM BID [facility] Last Admin: 05/04/20 07:59 Dose: 15 ml Documented by: Cholecalciferol (Cholecalciferol 25 Mcg (1000 Iu) Tablet) 25 mcg PO DAILY [facility] Last Admin: 05/04/20 07:59 Dose: 25 mcg Documented by: Enoxaparin Sodium (Enoxaparin 30 Mg/0.3 Ml Syringe) 30 mg SQ DAILY [facility] Last Admin: 05/04/20 07:59 Dose: 30 mg Documented by: Famotidine (Famotidine 20 Mg Tab) 20 mg OG-TUBE Q24HR [facility] Last Admin: 05/04/20 07:59 Dose: 20 mg Documented by: Folic Acid (Folic Acid 1 Mg Tab) 1 mg PO DAILY@1200 [facility] Last Admin: 05/04/20 13:51 Dose: 1 mg Documented by: Propofol 1,000 mg/ IV Solution 100 mls @ 0 mls/hr IV .Q0M [facility]; Protocol Last Admin: 05/04/20 13:53 Dose: 40 mcg/kg/min, 28.824 mls/hr Documented by: Fentanyl Citrate 1,000 mcg/ (Sodium Chloride) 100 mls @ 0 mls/hr IV .Q0M [facility]; Protocol Last Admin: 05/04/20 14:15 Dose: 1 mcg/kg/hr, 11.54 mls/hr Documented by: Norepinephrine Bitartrate 8 mg (/ Sodium Chloride) 258 mls @ 11.417 mls/hr IV .[id number] [facility]; Protocol Last Admin: 05/04/20 04:08 Dose: Not Given Documented by: Piperacillin Sod/Tazobactam (Sod 3.375 gm/ Sodium Chloride) 100 mls @ 25 mls/hr IVPB Q12HR [facility] Last Admin: 05/04/20 07:59 Dose: 25 mls/hr Documented by: Daptomycin 750 mg/ Sodium (Chloride) 50 mls @ 100 mls/hr IVPB Q48H [facility]; Protocol Last Admin: 05/04/20 13:51 Dose: 100 mls/hr Documented by: Insulin Aspart (Insulin Aspart (Novolog) 100 Unit/Ml Vial) 0 unit SQ Q4H [facility]; Protocol Last Admin: 05/04/20 12:25 Dose: 2 unit Documented by: Levothyroxine Sodium (Levothyroxine 50 Mcg Tab) 50 mcg PO DAILY@0630 [facility] Last Admin: 05/04/20 05:45 Dose: 50 mcg Documented by: Methylprednisolone Sodium Succinate (Methylprednisolone Sod Succi 125 Mg/2 Ml Vial) 60 mg IV Q6HR [facility] Last Admin: 05/04/20 13:51 Dose: 60 mg Documented by: Miscellaneous Information (Potassium Replacement Protocol 1 Each Misc) 1 each MISCELLANE DAILY PRN; Protocol PRN Reason: Per Protocol Morphine Sulfate (Morphine Sulfate 2 Mg/Ml Syringe) 2 mg IVP Q6H PRN PRN Reason: Pain/Discomfort Last Admin: 04/26/20 16:07 Dose: 2 mg Documented by: Multivitamins (Multivitamins, Thera 1 Each Tab) 1 each PO DAILY@1200 [facility] Last Admin: 05/04/20 13:51 Dose: 1 each Documented by: Naloxone HCl (Naloxone 0.4 Mg/Ml 1 Ml Vial) 0.2 mg IV Q2M PRN PRN Reason: Opioid Reversal Ondansetron HCl (Ondansetron 4 Mg/2 Ml Vial) 4 mg IVP Q6HR PRN PRN Reason: Nausea And Vomiting Thiamine HCl (Thiamine 100 Mg Tab) 100 mg PO DAILY@1200 [facility] Last Admin: 05/04/20 13:51 Dose: 100 mg Documented by: Zinc Sulfate (Zinc Sulfate 220 Mg Cap) 220 mg PO DAILY [facility] Last Admin: 05/04/20 07:59 Dose: 220 mg Documented by: Objective - Vital Signs Vital signs: Vital Signs Temp 97.6 F 05/04/20 04:00 Pulse 67 05/04/20 07:00 Resp 32 H 05/04/20 07:00 BP 153/47 05/03/20 13:00 Pulse Ox 93 L 05/04/20 07:00 Intake & Output 05/03/20 05/04/20 05/04/20 18:59 06:59 18:59 Intake Total 2212.394 4940.362 40 Output Total 6325 55 5 Balance -5035.593 1113.362 35 Weight 120.1 kg Intake: IV 287 301 23 0.9% KVO 260 180 20 Diana flush 27 21 3 Piperacillin-Tazobactam 3 100 .375 gm In Sodium Chloride 0.9% 100 ml @ 25 mls/hr IVPB Q12HR [facility] Rx #:[id number] Intake, IV Titration 391.407 590.362 Amount Piperacillin-Tazobactam 3 100 .375 gm In Sodium Chloride 0.9% 100 ml @ 25 mls/hr IVPB Q12HR [facility] Rx #:[id number] fentaNYL (PF) 1,000 mcg 100 200 In Sodium Chloride 0.9% 80 ml @ Per Protocol IV . Q0M [facility] Rx#:[id number] propofoL 1,000 mg In 191.407 390.362 Empty Bag 1 bag @ Titrate IV .Q0M [facility] Rx#: [id number] Tube Feeding 221 187 17 Hemodialysis 300 Other 90 90 Output: Urine 25 55 5 Hemodialysis 3300 Other 3000 Other: Voiding Method Indwelling Catheter Indwelling Catheter # Bowel Movements 1 ABP, PAP, CO, CI - Last Documented Arterial Blood Pressure 177/66 - Exam GENERAL: The patient is intubated and sedated HEENT: Pupils are round and equally reacting to light. EOMI. No scleral icterus. No conjunctival pallor. Normocephalic, atraumatic. No pharyngeal erythema. No thyromegaly. CARDIOVASCULAR: S1 and S2 present. No murmurs, rubs, or gallops. PULMONARY: Bilateral crackles noted on exam ABDOMEN: Soft, nontender, nondistended, normoactive bowel sounds. No palpable organomegaly. MUSCULOSKELETAL: No joint swelling or deformity. EXTREMITIES: No cyanosis, clubbing, or pedal edema. Bilateral upper extremity edema noted with 2+ pitting in the hands NEUROLOGICAL: Unable to assess, She is currently sedated SKIN: No rashes. no petechiae. - Labs CBC & Chem 7: 05/04/20 04:45 05/04/20 10:26 Labs: Abnormal Lab Results - Last 24 Hours (Table) 05/03/20 05/03/2021 Range/Units 05:00 09:58 11:33 WBC (3.8-10.6) k/uL Neutrophils # (Manual) (1.3-7.7) k/uL Lymphocytes # (Manual) (1.0-4.8) k/uL D-Dimer (<0.60) mg/L FEU ABG pH (7.35-7.45) ABG pO2 (83-108) mmHg ABG O2 Saturation (94-97) % POC Glucose (mg/dL) 115 H 150 H (75-99) mg/dL Ferritin 2220.2 H (10.0-291.0) ng/mL Lactate Dehydrogenase (313-618) U/L 05/03/20 05/03/20 05/04/20 Range/Units 16:52 20:20 01:03 WBC (3.8-10.6) k/uL Neutrophils # (Manual) (1.3-7.7) k/uL Lymphocytes # (Manual) (1.0-4.8) k/uL D-Dimer (<0.60) mg/L FEU ABG pH (7.35-7.45) ABG pO2 (83-108) mmHg ABG O2 Saturation (94-97) % POC Glucose (mg/dL) 126 H 134 H 142 H (75-99) mg/dL Ferritin (10.0-291.0) ng/mL Lactate Dehydrogenase (313-618) U/L 05/04/20 05/04/20 05/04/20 Range/Units 04:33 04:45 04:45 WBC 31.6 H (3.8-10.6) k/uL Neutrophils # (Manual) 30.30 H (1.3-7.7) k/uL Lymphocytes # (Manual) 0.63 L (1.0-4.8) k/uL D-Dimer (<0.60) mg/L FEU ABG pH (7.35-7.45) ABG pO2 (83-108) mmHg ABG O2 Saturation (94-97) % POC Glucose (mg/dL) 137 H (75-99) mg/dL Ferritin (10.0-291.0) ng/mL Lactate Dehydrogenase 958 H (313-618) U/L 05/04/20 05/04/20 05/04/20 Range/Units 05:19 06:00 07:38 WBC (3.8-10.6) k/uL Neutrophils # (Manual) (1.3-7.7) k/uL Lymphocytes # (Manual) (1.0-4.8) k/uL D-Dimer 7.38 H (<0.60) mg/L FEU ABG pH 7.29 L (7.35-7.45) ABG pO2 73 L (83-108) mmHg ABG O2 Saturation 93.5 L (94-97) % POC Glucose (mg/dL) 136 H (75-99) mg/dL Ferritin (10.0-291.0) ng/mL Lactate Dehydrogenase (313-618) U/L Microbiology - Last 24 Hours (Table) 05/03/20 11:10 Gram Stain - Preliminary Sputum Sputum Culture - Preliminary 05/03/20 10:00 Urine Culture - Preliminary Urine,Catheterized 04/30/20 12:20 Blood Culture - Preliminary Blood No Growth after 72 hours Assessment and Plan Assessment: COVID 19 pneumonia Acute hypoxic respiratory failure-status post intubation and mechanical ventilation New onset A. fib with RVR, currently rate controlled on oral amiodarone, cardiology following Acute kidney injury with anuria status post hemodialysis, nephrology following Increased d-dimer without evidence of PE Hyponatremia Leukocytosis, remains on Zosyn and daptomycin added, infectious disease following Elevated inflammatory markers Hypertension Hypothyroidism History of bilateral posterior tibial tendon repair Obesity with BMI of 40.2 DVT prophylaxis: Subcutaneous Lovenox GI prophylaxis: Pepcid Full code Plan: Continue with current medications. Patient maintained on IV Zosyn and d aptomycin added. Preliminary urine cultures showing Brittney albicans and gram- negative bacilli in sputum culture preliminary showing Brittney as well. Infectious disease along with pulmonary is following. Patient continues to be on mechanical vent and is sedated at this time. Nephrology also following as patient has been receiving hemodialysis. Surgery consult placed and patient will likely undergo tracheostomy with PEG tube placement in the morning. Family wishes to maintain CODE STATUS as full code. Prognosis remains extremely poor and guarded.
--- NOTE | 2020-05-04 16:16 | PN ---
PROGRESS NOTE DATE OF SERVICE: 05/04/2020 REASON FOR FOLLOWUP: Bacteremia. INTERVAL HISTORY: The patient blood culture drawn on the reported positive with gram positive cocci in clusters. The patient is currently afebrile. The patient is hemodynamically stable not on any pressor support. FiO2 is currently stable. No worsening diarrhea reported by the nursing staff, was undergoing dialysis at time of evaluation. PHYSICAL EXAMINATION: Blood pressure 121/48 with a pulse of 67, temperature 96.7. She is 91% on 50% FiO2. General description is an elderly female lying in bed in no distress. RESPIRATORY SYSTEM: Unlabored breathing, decreased intensity of breath sounds. No wheeze. HEART: S1, S2. Regular rate and rhythm. ABDOMEN: Soft, no tenderness. LABS: BUN of 98, creatinine 4.23. Sputum showing Brittney albicans. Urine showing gram- negative and Brittney albicans. DIAGNOSTIC IMPRESSION AND PLAN: 1. Patient with positive blood culture with gram-positive cocci in patient with respiratory failure including source possible dialysis catheter and left arm PICC line. Blood cultures repeated. Daptomycin will be added and monitor clinical course closely. 2. Positive urine culture showing a gram-negative covered with Zosyn. At this point, adjust antibiotic further based on culture report. MMODL / IJN: [id number] / KELSIE
[2020-05-04 17:40] LABS: Glucose,Whole Blood 109 mg/dL (75-99)
--- NOTE | 2020-05-04 19:58 | OP ---
OPERATIVE REPORT OPERATIVE REPORT: Placement of right radial arterial line. PREOPERATIVE DIAGNOSIS: Acute hypoxic respiratory failure and COVID-19 pneumonitis. POSTOPERATIVE DIAGNOSIS: Acute hypoxic respiratory failure and COVID-19 pneumonitis. ANESTHESIA USED: None deployed. PROCEDURE DESCRIPTION: The patient was placed in a supine position. The right wrist was prepared in a sterile fashion and drapes were applied. The right radial artery was palpated, cannulated easily, and a guidewire was placed. A Cook's catheter was inserted over the guidewire, and the guidewire was removed. Good blood flow, good waveform noted. Line was secured using 3.0 silk sutures. No evidence of any immediate complications. MMODL / IJN: [id number] /
[2020-05-04 20:09] LABS: Glucose,Whole Blood 124 mg/dL (75-99)
[2020-05-04 23:52] LABS: Glucose,Whole Blood 135 mg/dL (75-99)
[2020-05-05] MEDS: fentaNYL (PF) 1,000 MCG in SODIUM CHLORIDE 0.9% 80 ML IV SCH ×4 (00:32→18:28)
[2020-05-05] MEDS: INSULIN ASPART (NovoLOG) 100 UNIT/ML VIAL SQ SCH ×6 (00:36→20:04)
[2020-05-05] MEDS: NOREPINEPHRINE 8 MG in SODIUM CHLORIDE 0.9% 250 ML IV SCH (00:36)
[2020-05-05] MEDS: methylPREDNISolone SOD SUCCI 125 MG/2 ML VIAL IV SCH ×4 (00:38→18:29)
[2020-05-05] MEDS: MORPHINE SULFATE 2 MG/ML SYRINGE IVP PRN (01:29)
[2020-05-05 04:29] LABS: Glucose,Whole Blood 124 mg/dL (75-99)
[2020-05-05 04:46] LABS: Basophils # (A) 0.1 k/uL (0-0.2); Basophils % (A) 0 %; Eosinophils % (A) 0 %; HCT 33.5 % (34.0-46.0); HGB 11.4 gm/dL (11.4-16.0); Lymphocytes # (A) 0.3 k/uL (1.0-4.8); Lymphocytes % (A) 1 %; MCH 31.7 pg (25.0-35.0); MCHC 33.9 g/dL (31.0-37.0); MCV 93.6 fL (80.0-100.0); Mean Platelet Volume 8.1; Monocytes # (A) 0.9 k/uL (0-1.0); Monocytes % (A) 4 %; Neutrophils # (A) 22.4 k/uL (1.3-7.7); Neutrophils % (A) 94 %; Platelet Count 174 k/uL (150-450); RBC 3.58 m/uL (3.80-5.40); RDW 13.4 % (11.5-15.5); WBC 23.9 k/uL (3.8-10.6)
[2020-05-05 04:56] LABS: Calcium 7.6 mg/dL (8.4-10.2); Potassium 5.5 mmol/L (3.5-5.1)
[2020-05-05 04:57] LABS: C Reactive Protein 7.1 mg/L (<10.0)
[2020-05-05] MEDS: LEVOTHYROXINE 50 MCG TAB PO SCH (06:18)
[2020-05-05] MEDS: ALBUTEROL HFA INHALER INHALATION SCH ×4 (07:32→20:13)
[2020-05-05 07:38] LABS: ABG Base Excess -5.2 mmol/L; ABG HCO3 22 mmol/L (21-25); ABG Oxygen Saturation 94.8 % (94-97); ABG PCO2 45 mmHg (35-45); ABG PH 7.29 (7.35-7.45); ABG PO2 80 mmHg (83-108); ABG TCO2 23 mmol/L (19-24)
--- NOTE | 2020-05-05 07:47 | XR ---
EXAMINATION TYPE: XR chest 1V portable DATE OF EXAM: 05/05/2020 COMPARISON: 120 09/27/2020 INDICATION: Short of breath TECHNIQUE: Single frontal view of the chest is obtained. FINDINGS: The heart size is normal. The pulmonary vasculature is pulmonary vasculature is prominent. Diffuse increased lung markings are present greater in the lung bases. Findings are similar to compar patt IMPRESSION: 1. Mild groundglass opacity and mild infiltrate through the mid and lower lung mendoza, stable.
[2020-05-05 07:51] LABS: Glucose,Whole Blood 129 mg/dL (75-99)
[2020-05-05] MEDS: AMIODARONE 200 MG TAB PO SCH (07:55)
[2020-05-05] MEDS: ASCORBIC ACID 500 MG TAB PO SCH (08:12)
[2020-05-05] MEDS: CHOLECALCIFEROL 25 MCG (1000 IU) TABLET PO SCH (08:12)
[2020-05-05] MEDS: FAMOTIDINE 20 MG TAB OG-TUBE SCH (08:12)
[2020-05-05] MEDS: ZINC SULFATE 220 MG CAP PO SCH (08:12)
[2020-05-05] MEDS: ENOXAPARIN 30 MG/0.3 ML SYRINGE SQ SCH (08:13)
[2020-05-05] MEDS: PIPERACILLIN-TAZOBACTAM 3.375 GM in SODIUM CHLORIDE 0.9% 100 ML IVPB SCH ×2 (08:15→20:47)
[2020-05-05] MEDS: CHLORHEXIDINE GLUCONATE 15 ML CUP MUCOUS MEM SCH ×2 (08:15→20:47)
--- NOTE | 2020-05-05 08:33 | PN ---
PROGRESS NOTE Mrs. Mccoy is in sinus rhythm with sinus bradycardia. She is doing well. Apparently she will not be on full heparin because she is going to have a trach and PEG today and also had some procedures. I am recommending that we decrease amiodarone to 200 mg daily and whenever possible switch her from Lovenox to IV heparin and eventually to Eliquis 2.5 mg b.i.d. if okay by Nephrology. The patient's overall condition is about the same and I will continue to see her as needed. MMODL / IJN: [id number] /
[2020-05-05] MEDS ORDERED: DEXTROSE 50% SYRINGE 50 ML IVP STA (09:32)
[2020-05-05] MEDS ORDERED: INSULIN REGULAR 100 UNIT/ML VIAL IV ONE (09:45)
[2020-05-05] MEDS: FOLIC ACID 1 MG TAB PO SCH (11:33)
--- NOTE | 2020-05-05 11:33 | P.PN ---
Subjective Progress Note Date: 05/05/20 Ms. Mccoy is a 69-year-old female with a past medical history of hypertension and thyroid disorder admitted to the hospital for acute hypoxic respiratory failure secondary to COVID 19 pneumonia. Patient has extensive bilateral interstitial pneumonia. She is on a low and pulmonary Dr. Mathews is following the patient. Patient received a convalescent plasma, is also on Remdesivir. On 04/17/2020- This morning patient was evaluated in the ICU. Patient is comfortably sitting in a chair states that her breathing is improving gradually. She denies having any chest pain or palpitations. No cough or hemoptysis. She denies having any swelling or for lower extremities. No abdominal pain nausea vomiting or diarrhea. She denies having any dysuria or hematuria, she has a Bryan's catheter in place. On reviewing her vitals temperature 98.1 heart rate 75 is 5817, blood pressure 1:30 bradycardia. Saturating at 96% on a Aervo -60%. On 04/18/2020 - patient was seen and examined in the ICU. Patient is sitting in a chair by the bedside, states that her breathing has worsened compared to yesterday. Patient is on high flow Airvo, saturating in the low 90s. She denies having any chest pain or palpitations. She complains of cough that is nonproductive. Patient had a chest x-ray done showing stable bilateral air space disease. As the patient was having few episodes of tachycardia, she was started on Lopressor this morning. Patient's inflammatory markers are noted to be high. On reviewing her vitals saturating at 90% on high flow Airvo, heart rate 70s to 80s, respiratory rate 20-25, blood pressure 106-67. In reviewing her labs white count of 29.3, hemoglobin 16.8, platelets 369. D-dimer 6.99, LDH 2969, CRP 63.9. On 04/19/2020 - patient is seen and examined in the ICU. She is currently on BiPAP, as her respiratory status has worsened compared to yesterday. Patient denies having any chest pain or palpitations. No abdominal pain nausea vomiting or diarrhea. No dysuria or hematuria. She is on BiPAP 14/6 and 100% FiO2. On reviewing her vitals temperature is 99.2, respiratory rate is 25, heart rate 70, blood pressure 10 9 x 71. Reviewing the labs white count of 27.3, hemoglobin 17.4, platelets 314. Sodium 133, potassium 4.4, chloride 90, bicarbonate 35, BUN 31, creatinine 0.72. Ferritin 3195, CRP 217 and LDH 2747. 04/20/2020 This is a pleasant 69 years old female with multiple medical problems was admitted for bilateral Covid pneumonia, she is currently on aervo at 90%/60 L of oxygen, saturating 89%. Rest of Vitas looks stable Also she is on BiPAP All the night. She is able to eat and drink, no pressors She is on normal saline at 75 mL/h with adequate urine output Patient is currently ON Medrol 40 mg twice daily, Lovenox 60 mg twice Mary and vitamin C and zinc. She finished her remdisvir and convelecent plasma. 04/21/2020 Patient remains in the ICU bed and respiratory support for her bilateral Covid pneumonia. She still dyspneic especially with exertion and she still needs BiPAP during the day shift. Also she had a fever today of 102.2. Patient is empirically on Zosyn/calcitonin check today showing normal level at 0.07. She has leukocytosis of 29K. I agree with Zosyn and I recommended to continue with that for now. Also patient is on steroids 60 mg every 6 hours. As there is no more significant progress progress in her clinical picture Glucose is 123 and inflammatory markers still elevated 04/22/2020 this is a pleasant 69 yo F who is admitted to the ICU for covid pneumonia, she is still on BiPAP dependant , TNP is started for her nutrition for this reasone. her oxygen saturation is on low 90s% cxr: diffuse interstitial opacities and worsening airspace disease in the left lower lung. consider interstitial edema wbc is sligtly less 26K, she is currently continued on zosyn , and solumedrol 60 mg. and normal saline increased to 150 ml/hr. and lovenox 60 mg BID she finised her Remdisvir and convelescent Plasma. 04/23/2020 Patient looks very tired, she came Off the BiPAP today morning and she was placed back on airvo at 60 L she is back and forth between BiPAP and airvo, however she probably will need BiPAP at night Inflammatory markers and d-dimer increased, ferritin 3100 up to 3700 and d-dimer 3 up to 5 Chest x-ray showing bilateral middle and lower infiltrates with slight improvement Treatments with antibiotics Zosyn, fluconazole was added today. Also she is also on Solu-Medrol 60 mg, normal sling was decreased to 50 mL per hour, Lovenox 60 mg twice daily, TPN and she is on vitamin C and zinc 04/24/2020 Patient today her clinical condition deteriorated, she was hypoxic this morning with oxygen saturation in the 70s percent and she was tachycardic with heart rate 140-150, patient ended up being intubated in the morning and she was in an you onset of A. fib and started on Cardizem drip on 15 mg however her heart rate was still elevated, cardiology team were consulted, blood pressure was on the low normal side. Amiodarone drip was started. Cardiology team and Cardizem drip was shut to 15 mg/h. Also insulin drip for hyperglycemia with sugar more than 300. 04/25/2020 Patient was intubated yesterday for deteriorated respiratory status, ABG showing elevated pCO2 on 496 with acidosis. 7.0 and 7.1. Oxygen saturation is acceptable at 107. She remains on mechanical ventilation managed by pulmonary/critical care team, currently her bruits and draped with before meals at 40 to help with her acidosis. Her creatinine worsened today 0.5 up to 1.3, with potassium elevated as well as 5.5 nephrology team were consulted who ordered insulin/dextrose 50%, sodium bicarb 1 and Lasix 80 mg 1. [employer]er recommended hemodialysis and no improvement in 24 hours Chest x-ray showing pneumonia and edema which is stable from yesterday. Sugar improved and we could switch her insulin drip to insulin sliding scale A. fib is improved and converted to sinus rhythm with amiodarone which is swi tched to [facility] per [facility], She Is Already on Anticoagulation 04/26/20 Patient remains in the ICU sedated and intubated with pulmonary/ critical care team following the case closely. Showing trending down leukocytosis to 20 6.1K. Creatinine up to 2.8, Patient is developing anuria with acute kidney injury, nephrology evaluation is appreciated and hemodialysis is initiated. Chest x-ray showing interstitial infiltrate especially in the mid to lower lungs Echocardiogram showed ejection fraction of 55-60%, and atrial fibrillation improved yesterday with amiodarone She remains on Solu-Medrol, Zosyn and fluconazole, normal sinus 50 and vitamin C and zinc Lovenox dose was adjusted to renal function down to 50 mg daily Prognosis remains guarded 04/27/2020 Patient with bilateral: With pneumonia that her purse and eventually got intubated, pulmonary/critical care team and several consultants are following the case, vent management as per pulmonary team. She has leukocytosis of 13.8 K. Creatinine today is 3.37 Patient undergoing hemodialysis for the last 2-3 days for acute kidney injury and formerly [facility], [facility] Patient A. fib heart rate becomes uncontrolled today and her amiodarone to switch to a drip. Other medication including Solu-Medrol 60 mg, vitamin C and zinc, Zosyn and fluconazole, she is on normal saline at 50 mL/h and Lovenox dose dropped to 30 mg daily 04/28/2020 Patient remains intubated and sedated in the ICU, followed closely by critical care team. Vital showing tachycardia and tachypnea. WBC is 30 3.5K. Creatinine 3.8, sodium 134. Sugar is controlled. Inflammatory markers are elevated. She is undergoing hemodialysis today Chest x-ray from today showing no change from last one yesterday Medication-hernandez he remains on Solu-Medrol, Zosyn, 30 mg of Lovenox daily which is renal dose and amiodarone drip. Normal saline at 50 mm was discontinued today 04/29/2020 This is a pleasant 69 years old female with bilateral, with pneumonia. Patient remains in the ICU sedated and intubated with pulmonary/critical care team following the case closely. Normal sedation holiday for the patient currently She already finished her treatment with remdesivir and convalescent plasma, and currently she is on vitamin C and zinc. She was on steroids in the form of high dose of Solu-Medrol 60 mg and Zosyn and fluconazole for possible bacteria and fungal infection associated with viral infection. Patient course was complicated by renal failure and new or so she underwent hemodialysis, last HD was yesterday, she is kept on renal dose of Lovenox 30 mg daily. Other compli cation is atrial fibrillation with RVR which is currently controlled with oral amiodarone and low-dose of Cardizem drip. Patient condition remains critical and she kept on mechanical ventilation with close monitoring Procalcitonin is unchanged yesterday at 0.39 compared to one week ago at 0.39. We'll order another test tomorrow 04/30/2020 Patient is seen and evaluated and follow-up continues to remain closely monitored in the ICU. Patient continues to be on a mechanical ventilator intubated and sedated currently off paralytics. Patient being followed by multiple medical consultations including cardiology, pulmonary, nephrology. Patient currently receiving hemodialysis for ultrafiltration and became extremely hypotensive maxing out on pressors and dialysis was aborted. Patient prognosis is extremely guarded and poor at this time. Patient continues to be on IV steroids along with Lovenox vitamin C and D and zinc supplements and will continue. Patient is also maintained on IV antibiotics in the form of Zosyn and vancomycin being added. Patient currently off of IV amiodarone and IV Cardizem and transitioned to oral amiodarone and will continue at this time. Chest x-ray continues to show interstitial pneumonia with bilateral basilar infiltrates and tiny effusions. She also had an abdominal x-ray showing nonspecific abdomen with no diagnostic evidence of obstruction. White blood count today is 27.9, hemoglobin is stable at 12.7, d-dimer is elevated although slowly trending down at 3.04, current sodium is 129, potassium is 5.9, BUN is 103 with a creatinine of 4.97. Attempts at ultrafiltration today his potassium is elevated. Nephrology is following closely. 05/01/20 Patient remains in the ICU intubated on mechanical ventilation with pulmonary/critical care team following closely. Patient today underwent sedation holiday and into hours she started becoming agitated and developed atrial fibrillation's with RVR, she has to be placed back on amiodarone drip and Cardizem drip 10 mg per hour before it was converted to sinus rhythm again Currently she is tachypneic with a breathing rate around 32. She is saturating 91% on FiO2 of 60% Leukocytosis 27.9 yesterday and 24.6K today. D-dimer stable at 3.7 so she kept on the same dose of Lovenox Inflammatory markers including LDH, protein and C-reactive protein went up slightly today. Patient remains anuric and undergoing hemodialysis She remains on Zosyn and fluconazole, she got 2 doses of IV vancomycin yesterday and today. Also she is on zinc and vitamin C, Lovenox 30 mg daily. Diflucan was stopped 05/02/2020 Patient remains intubated and sedated in the ICU was followed closely by pulmonary/critical care team and for vent management. Patient also with A. fib on several occasions needing Cardizem and amiodarone, cardiology following the patient Patient is still undergoing hemodialysis for anuria and acute kidney injury, nephrology team on the case x-ray showed improvement bibasilar infiltrates She is on some Medrol 60 mg daily, antibiotics were stopped 2 days ago. She is also on Lovenox 30 mg daily, vitamin C and zinc 05/03/2020 Patient is seen this morning currently remains in the ICU receiving hemodialysis today. Multiple medical consultations following. Patient remains on mechanical vent and is intubated and sedated and will continue at this time. D-dimer is elevated at 5.50, sodium is 132, potassium is 5.9, BUN is 108, current creatinine is 4.87. White blood count is 31.3 and hemoglobin is 11.3. Patient blood pressure is elevated as well and has been continuing with daily dialysis. Chest x-rays today show interstitial infiltrates or edema in the mid and lower lungs continue with slight improvement on the left. Patient remains on IV antibiotics in the form of Zosyn and will continue at this time. Infectious disease is following as well. 05/04/2020 Patient is seen in follow-up currently remains in the ICU. Surgical consult was placed for trach and PEG tube placement as patient continues to be on tube feedings and continues to be on a mechanical vent. Dimer elevated at 7.38. Nephrology also following as patient has been receiving hemodialysis and current creatinine today is 4.23 with a BUN of 98 and potassium is 5.9. Patient will be made nothing by mouth and tube feedings held for surgery tomorrow. Family continues to wish for full CODE STATUS. Sputum cultures preliminary showing Brittney albicans and urine showing gram-negative bacilli with Brittney albicans. Infectious disease is following. Patient is maintained on IV antibiotics in the form of Zosyn and daptomycin being added. Will await culture finalization. 05/05/2020 Patient continues to be in the ICU currently on a mechanical vent awaiting PEG tube and trach placement today with surgery. Multiple medical consultations following including nephrology. Potassium was 5.5 this morning and will correct prior to surgery patient will be receiving hemodialysis this afternoon. Infla mmatory markers trending down. Patient is maintained on IV antibiotics in the form of daptomycin along with Zosyn and will continue. Tube feedings on hold this morning for surgery. Review of systems: Unable to obtain as patient's currently intubated and sedated Active Medications Acetaminophen (Acetaminophen Tab 325 Mg Tab) 650 mg PO Q6HR PRN PRN Reason: Mild Pain or Fever > 100.5 Last Admin: 04/21/20 04:34 Dose: 650 mg Documented by: Albuterol Sulfate (Albuterol Hfa Inhaler) 2 puff INHALATION RT-QID [facility] Last Admin: 05/05/20 07:32 Dose: 2 puff Documented by: Amiodarone HCl (Amiodarone 200 Mg Tab) 200 mg PO DAILY [facility] Last Admin: 05/05/20 07:55 Dose: 200 mg Documented by: Ascorbic Acid (Ascorbic Acid 500 Mg Tab) 250 mg PO DAILY [facility] Last Admin: 05/05/20 08:12 Dose: Not Given Documented by: Chlorhexidine Gluconate (Chlorhexidine Gluconate 15 Ml Cup) 15 ml MUCOUS MEM BID [facility] Last Admin: 05/05/20 08:15 Dose: 15 ml Documented by: Cholecalciferol (Cholecalciferol 25 Mcg (1000 Iu) Tablet) 25 mcg PO DAILY [facility] Last Admin: 05/05/20 08:12 Dose: Not Given Documented by: Enoxaparin Sodium (Enoxaparin 30 Mg/0.3 Ml Syringe) 30 mg SQ DAILY [facility] Last Admin: 05/05/20 08:13 Dose: 30 mg Documented by: Famotidine (Famotidine 20 Mg Tab) 20 mg OG-TUBE Q24HR [facility] Last Admin: 05/05/20 08:12 Dose: Not Given Documented by: Folic Acid (Folic Acid 1 Mg Tab) 1 mg PO DAILY@1200 [facility] Last Admin: 05/04/20 13:51 Dose: 1 mg Documented by: Propofol 1,000 mg/ IV Solution 100 mls @ 0 mls/hr IV .Q0M [facility]; Protocol Last Titration: 05/05/20 09:16 Dose: 40 mcg/kg/min, 29.184 mls/hr Documented by: Fentanyl Citrate 1,000 mcg/ (Sodium Chloride) 100 mls @ 0 mls/hr IV .Q0M [facility]; Protocol Last Admin: 05/05/20 07:56 Dose: 1.5 mcg/kg/hr, 17.31 mls/hr Documented by: Norepinephrine Bitartrate 8 mg (/ Sodium Chloride) 258 mls @ 11.417 mls/hr IV .[id number] [facility]; Protocol Last Admin: 05/05/20 00:36 Dose: Not Given Documented by: Piperacillin Sod/Tazobactam (Sod 3.375 gm/ Sodium Chloride) 100 mls @ 25 mls/hr IVPB Q12HR [facility] Last Admin: 05/05/20 08:15 Dose: 25 mls/hr Documented by: Daptomycin 750 mg/ Sodium (Chloride) 50 mls @ 100 mls/hr IVPB Q48H [facility]; Protocol Last Admin: 05/04/20 13:51 Dose: 100 mls/hr Documented by: Insulin Aspart (Insulin Aspart (Novolog) 100 Unit/Ml Vial) 0 unit SQ Q4H [facility]; Protocol Last Admin: 05/05/20 07:54 Dose: Not Given Documented by: Levothyroxine Sodium (Levothyroxine 50 Mcg Tab) 50 mcg PO DAILY@0630 [facility] Last Admin: 05/05/20 06:18 Dose: 50 mcg Documented by: Methylprednisolone Sodium Succinate (Methylprednisolone Sod Succi 125 Mg/2 Ml Vial) 60 mg IV Q6HR [facility] Last Admin: 05/05/20 06:18 Dose: 60 mg Documented by: Miscellaneous Information (Potassium Replacement Protocol 1 Each Misc) 1 each MISCELLANE DAILY PRN; Protocol PRN Reason: Per Protocol Morphine Sulfate (Morphine Sulfate 2 Mg/Ml Syringe) 2 mg IVP Q6H PRN PRN Reason: Pain/Discomfort Last Admin: 05/05/20 01:29 Dose: 2 mg Documented by: Multivitamins (Multivitamins, Thera 1 Each Tab) 1 each PO DAILY@1200 [facility] Last Admin: 05/04/20 13:51 Dose: 1 each Documented by: Naloxone HCl (Naloxone 0.4 Mg/Ml 1 Ml Vial) 0.2 mg IV Q2M PRN PRN Reason: Opioid Reversal Ondansetron HCl (Ondansetron 4 Mg/2 Ml Vial) 4 mg IVP Q6HR PRN PRN Reason: Nausea And Vomiting Thiamine HCl (Thiamine 100 Mg Tab) 100 mg PO DAILY@1200 [facility] Last Admin: 05/04/20 13:51 Dose: 100 mg Documented by: Zinc Sulfate (Zinc Sulfate 220 Mg Cap) 220 mg PO DAILY [facility] Last Admin: 05/05/20 08:12 Dose: Not Given Documented by: Objective - Vital Signs Vital signs: Vital Signs Temp 96.3 F L 05/05/20 08:00 Pulse 53 L 05/05/20 09:00 Resp 32 H 05/05/20 09:00 BP 118/62 05/05/20 09:00 Pulse Ox 93 L 05/05/20 09:00 Intake & Output 05/04/20 05/05/20 05/05/20 18:59 06:59 18:59 Intake Total 8436.714 6019.916 310.008 Output Total 2345 75 20 Balance -705.626 972.916 290.008 Weight 121.6 kg Intake: IV 654 336 119 0.9% KVO 240 200 60 [place] flush 36 36 9 DAPTOmycin 750 mg In 50 Sodium Chloride 0.9% 50 ml @ 100 mls/hr IVPB Q48H [facility] Rx#:[id number] Piperacillin-Tazobactam 3 328 100 50 .375 gm In Sodium Chloride 0.9% 100 ml @ 25 mls/hr IVPB Q12HR [facility] Rx #:[id number] Intake, IV Titration 391.374 434.916 191.008 Amount fentaNYL (PF) 1,000 mcg 97.128 149.045 50.955 In Sodium Chloride 0.9% 80 ml @ Per Protocol IV . Q0M [facility] Rx#:[id number] propofoL 1,000 mg In 294.246 285.871 140.053 Empty Bag 1 bag @ Titrate IV .Q0M [facility] Rx#: [id number] Tube Feeding 204 187 Hemodialysis 300 Other 90 90 Output: Urine 45 75 20 Hemodialysis 2300 Other: Voiding Method Indwelling Catheter Indwelling Catheter ABP, PAP, CO, CI - Last Documented Arterial Blood Pressure 125/44 - Exam GENERAL: The patient is intubated and sedated HEENT: Pupils are round and equally reacting to light. EOMI. No scleral icterus. No conjunctival pallor. Normocephalic, atraumatic. No pharyngeal erythema. No thyromegaly. CARDIOVASCULAR: S1 and S2 present. No murmurs, rubs, or gallops. PULMONARY: Bilateral crackles noted on exam ABDOMEN: Soft, nontender, nondistended, normoactive bowel sounds. No palpable organomegaly. MUSCULOSKELETAL: No joint swelling or deformity. EXTREMITIES: No cyanosis, clubbing, or pedal edema. Bilateral upper and lower extremity edema noted with 2+ pitting in the hands NEUROLOGICAL: Unable to assess, She is currently sedated SKIN: No rashes. no petechiae. - Labs CBC & Chem 7: 05/05/20 04:20 05/05/20 04:20 Labs: Abnormal Lab Results - Last 24 Hours (Table) 05/04/20 05/04/20 05/04/20 Range/Units 04:45 10:26 11:29 WBC (3.8-10.6) k/uL RBC (3.80-5.40) m/uL Hct (34.0-46.0) % Neutrophils # (1.3-7.7) k/uL Lymphocytes # (1.0-4.8) k/uL D-Dimer (<0.60) mg/L FEU ABG pH (7.35-7.45) ABG pO2 (83-108) mmHg Sodium 133 L (137-145) mmol/L Potassium 5.9 H (3.5-5.1) mmol/L Carbon Dioxide 21 L (22-30) mmol/L BUN 98 H (7-17) mg/dL Creatinine 4.23 H (0.52-1.04) mg/dL Glucose 136 H (74-99) mg/dL POC Glucose (mg/dL) 143 H (75-99) mg/dL Calcium 7.8 L (8.4-10.2) mg/dL Ferritin 2432.6 H (10.0-291.0) ng/mL Lactate Dehydrogenase (313-618) U/L CK-MB (CK-2) (0.0-2.4) ng/mL 05/04/20 05/04/20 05/04/20 Range/Units 17:38 19:58 23:51 WBC (3.8-10.6) k/uL RBC (3.80-5.40) m/uL Hct (34.0-46.0) % Neutrophils # (1.3-7.7) k/uL Lymphocytes # (1.0-4.8) k/uL D-Dimer (<0.60) mg/L FEU ABG pH (7.35-7.45) ABG pO2 (83-108) mmHg Sodium (137-145) mmol/L Potassium (3.5-5.1) mmol/L Carbon Dioxide (22-30) mmol/L BUN (7-17) mg/dL Creatinine (0.52-1.04) mg/dL Glucose (74-99) mg/dL POC Glucose (mg/dL) 109 H 124 H 135 H (75-99) mg/dL Calcium (8.4-10.2) mg/dL Ferritin (10.0-291.0) ng/mL Lactate Dehydrogenase (313-618) U/L CK-MB (CK-2) (0.0-2.4) ng/mL 05/05/20 05/05/20 05/05/20 Range/Units 04:18 04:20 04:20 WBC 23.9 H (3.8-10.6) k/uL RBC 3.58 L (3.80-5.40) m/uL Hct 33.5 L (34.0-46.0) % Neutrophils # 22.4 H (1.3-7.7) k/uL Lymphocytes # 0.3 L (1.0-4.8) k/uL D-Dimer 6.69 H (<0.60) mg/L FEU ABG pH (7.35-7.45) ABG pO2 (83-108) mmHg Sodium (137-145) mmol/L Potassium (3.5-5.1) mmol/L Carbon Dioxide (22-30) mmol/L BUN (7-17) mg/dL Creatinine (0.52-1.04) mg/dL Glucose (74-99) mg/dL POC Glucose (mg/dL) 124 H (75-99) mg/dL Calcium (8.4-10.2) mg/dL Ferritin (10.0-291.0) ng/mL Lactate Dehydrogenase (313-618) U/L CK-MB (CK-2) (0.0-2.4) ng/mL 05/05/20 05/05/20 05/05/20 Range/Units 04:20 04:20 04:20 WBC (3.8-10.6) k/uL RBC (3.80-5.40) m/uL Hct (34.0-46.0) % Neutrophils # (1.3-7.7) k/uL Lymphocytes # (1.0-4.8) k/uL D-Dimer (<0.60) mg/L FEU ABG pH (7.35-7.45) ABG pO2 (83-108) mmHg Sodium 130 L (137-145) mmol/L Potassium 5.5 H (3.5-5.1) mmol/L Carbon Dioxide 20 L (22-30) mmol/L BUN 85 H (7-17) mg/dL Creatinine 3.89 H (0.52-1.04) mg/dL Glucose 128 H (74-99) mg/dL POC Glucose (mg/dL) (75-99) mg/dL Calcium 7.6 L (8.4-10.2) mg/dL Ferritin (10.0-291.0) ng/mL Lactate Dehydrogenase 942 H (313-618) U/L CK-MB (CK-2) 2.7 H (0.0-2.4) ng/mL 05/05/20 05/05/20 Range/Units 07:33 07:49 WBC (3.8-10.6) k/uL RBC (3.80-5.40) m/uL Hct (34.0-46.0) % Neutrophils # (1.3-7.7) k/uL Lymphocytes # (1.0-4.8) k/uL D-Dimer (<0.60) mg/L FEU ABG pH 7.29 L (7.35-7.45) ABG pO2 80 L (83-108) mmHg Sodium (137-145) mmol/L Potassium (3.5-5.1) mmol/L Carbon Dioxide (22-30) mmol/L BUN (7-17) mg/dL Creatinine (0.52-1.04) mg/dL Glucose (74-99) mg/dL POC Glucose (mg/dL) 129 H (75-99) mg/dL Calcium (8.4-10.2) mg/dL Ferritin (10.0-291.0) ng/mL Lactate Dehydrogenase (313-618) U/L CK-MB (CK-2) (0.0-2.4) ng/mL Microbiology - Last 24 Hours (Table) 05/03/20 10:00 Urine Culture - Final Urine,Catheterized Escherichia coli Brittney albicans 05/03/20 10:00 Blood Culture Gram Stain - Preliminary Blood Blood Culture - Preliminary Coagulase Negative Staph 04/30/20 12:20 Blood Culture - Preliminary Blood No Growth after 96 hours 05/03/20 11:55 Blood Culture - Preliminary Blood No Growth after 24 hours 05/03/20 10:00 Blood Culture - Final Blood 05/03/20 11:10 Gram Stain - Preliminary Sputum Sputum Culture - Preliminary Brittney albicans Assessment and Plan Assessment: COVID 19 pneumonia Acute hypoxic respiratory failure-status post intubation and mechanical ventilation New onset A. fib with RVR, currently rate controlled on oral amiodarone, cardiology following Acute kidney injury with anuria status post hemodialysis, nephrology following Increased d-dimer without evidence of PE Hyponatremia Leukocytosis, remains on Zosyn and daptomycin added, infectious disease following Elevated inflammatory markers Hypertension Hypothyroidism History of bilateral posterior tibial tendon repair Obesity with BMI of 40.2 DVT prophylaxis: Subcutaneous Lovenox GI prophylaxis: Pepcid Full code Plan: Continue with current medications. Patient maintained on IV Zosyn and daptomycin. urine and sputum cultures showing Brittney albicans and gram- negative bacilli. Infectious disease along with pulmonary is following. Patient continues to be on mechanical vent and is sedated at this time. Nephrology also following as patient has been receiving hemodialysis. Patient's potassium was 5.5 and being corrected as patient will be having surgery prior to hemodialysis for tracheostomy and PEG tube placement today. This was discussed with nephrology along with surgery. Prognosis remains extremely poor and guarded.
[2020-05-05] MEDS: MULTIVITAMINS, THERA 1 EACH TAB PO SCH (11:34)
[2020-05-05] MEDS: THIAMINE 100 MG TAB PO SCH (11:34)
[2020-05-05 11:35] LABS: Glucose,Whole Blood 233 mg/dL (75-99)
[2020-05-05 12:17] LABS: Ferritin 1884.9 ng/mL (10.0-291.0)
[2020-05-05] MEDS ORDERED: LIDOCAINE 1% INJ 10MG/ML (20 ML MDV) SQ ONE (13:45)
[2020-05-05] MEDS ORDERED: ROCURONIUM 10 MG/ML (10 ML VIAL) IV ONE (14:15)
[2020-05-05] MEDS ORDERED: WATER FOR INJECTION, STERILE 10 ML VIAL IV ONE (14:15)
[2020-05-05] MEDS ORDERED: ALBUTEROL HFA INHALER INHALATION ONE (14:15)
[2020-05-05] MEDS ORDERED: ePHEDrine SULFATE/0.9% NACL/PF 50 MG/5 ML SYRINGE IV ONE (14:15)
[2020-05-05] MEDS ORDERED: MIDAZOLAM 2 MG/2 ML VIAL ONE (14:15)
--- NOTE | 2020-05-05 14:22 | PN ---
PROGRESS NOTE DATE OF SERVICE: 05/05/2020 REASON FOR FOLLOWUP: Bacteremia. INTERVAL HISTORY: The patient is currently afebrile. The patient is hemodynamically stable. The FiO2 is currently at 50%, failed to be extubated and plan is for trach and PEG this afternoon. Tolerating tube feeds. No significant diarrhea per the nursing staff. PHYSICAL EXAMINATION: Blood pressure 138/49 with a pulse of 54, temperature 96.3. She is 94% on 50% FiO2. General description is a middle-aged female intubated on the vent. RESPIRATORY SYSTEM: Unlabored breathing with decreased breath sounds at the bases. No wheeze. HEART: S1, S2. Regular rate and rhythm. ABDOMEN: Soft, no tenderness. LAB DATA: Hemoglobin 11.4, white count down to 23.9 with BUN of 85, creatinine 3.89. Blood culture with coagulase negative Staph. DIAGNOSTIC IMPRESSION AND PLAN: Patient with a positive blood culture with coagulase negative Staph in this patient did have elevated white count showing a downward trend with daptomycin. Source could be the groin catheter or the PICC line. Blood culture has been negative so far. Continue with daptomycin and monitor clinical course closely. MMODL / IJN: [id number] /
[2020-05-05] MEDS ORDERED: SODIUM CHLORIDE 0.9% 500 ML 500 ML IV ONE (14:25)
--- NOTE | 2020-05-05 14:44 | P.PN ---
Subjective Progress Note Date: 05/05/20 Principal diagnosis: Acute hypoxic respiratory failure secondary to covid 19 pneumonitis This 69-year-old white female patient who was admitted to the hospital on 04/11/2020 when she came in for evaluation of 1 week history of cough, fever, shortness of breath, decreased appetite and intermittent episodes of diarrhea. Patient was diagnosed with COVID 19 pneumonia, this was done via outpatient testing through the health Department. Patient initially presented at [facility], she was hypoxemic with a pulse ox in the 80s and she was placed on high flow oxygen and transferred to the [facility]. CT angiogram of the chest showed no evidence of pulmonary embolism, however it showed evidence of bilateral interstitial infiltrates consistent with COVID 19 pneumonitis. Patient completed her Remdesivir treatment on 04/16/2020, she received 2 units of convalescent plasma, she remains on IV steroids with IV Solu-Medrol. In view of her worsening hypoxemia patient was transferred to the intensive care unit, she is intubated on 04/24/2020 05/02/2020, the patient remains intubated on a mechanical ventilator. She remains on propofol which is running at 35 mcg/kg per minute and the patient is on fentanyl running at 1 g per KG per hour. The patient is well sedated and, comfortable suggest a mechanical ventilator. Her vent settings are essentially the same. The patient is on a VC plus mode with a rate of 32 and FiO2 of 50% with a PEEP of 15 and a tidal volume of 400. Peak airway pressures 31, static pressures probably 38. Blood gas showed a pH of 7.27 with a pCO2 of 51 and pO2 of 69 and the blood is essentially stable and comparable to yesterday's value. The patient has no major secretions. The chest x-ray stable with diffuse breath and pulmonary infiltrates and there is no evidence of pneumothorax. ET tube is in good location. She remains on Solu-Medrol 60 mg every 6 hours inpatient LDH level is down to 792 and the CRP level is down to 16.4 and the d-dimer today is at 3.47. She is afebrile. She has a small amount of diarrhea and fecal management system is in place. Urine output is minimal and the patient is re ceiving dialysis periodically. Her last bout of dialysis was yesterday. This was done successfully. Total of 3 L of ultrafiltration was performed without causing any significant hemodynamic changes. In fact she became slightly hypoxic as the patient was being weaned off the propofol and ultimately propofol was restarted. Triglyceride levels are at 285. She is receiving enteral feeding for nutritional support. She remains on vital high protein at the rate of 27 mL an hour and she is essentially at goal. She weighs was restarted yesterday and there is no significant residuals. No emesis. She was having issues with frequent PVCs and short runs of atrial fibrillation yesterday. Based on that, cardiology restarted the patient on amiodarone drip at 0.5 mg shows and a Cardizem drip has been discontinued. Liver function tests from today shows an AST of 48, ALT of 148 and an alkaline phosphatase of 72. Reevaluated today on 05/03/2020, patient remains intubated and mechanically tonya tilated. She is presently on tidal volume was 420, volume control plus, assist control rate of 32, FiO2 50%, and PEEP is 12. Peak airway pressure is 32, plateau pressure is 25. ABG this morning showed a pO2 of 77 pCO2 of 51 pH of 7.2. 2. Patient remains on propofol is also on fentanyl, both were placed on hold this morning, and soon as the patient was waking up, her blood pressure was in the 200 range systolic. Patient was not awake enough to follow any instructions, hence I recommended that she remains back on propofol and fentanyl. Patient is receiving dialysis through a right hemodialysis catheter in the groin. Patient is receiving enteral feeding/Nepro . Her white count is noted to be elevated today, and her pro calcitonin level was also noted to be a bit elevated, hence I recommended adding Zosyn this will be added empirically, and cultures were ordered. Patient is a good set up for catheter sepsis. Patient was intubated on 04/24/2020, and over the next few days if the patient does not tolerate weaning may have to consider tracheostomy and PEG tube placement. Her ABG remains marginal and her PEEP remains relatively high at 12, FiO2 is at 50%, but she is nowhere near weaning at this point. WBC count today is up to 31.3, hemoglobin is 11.3. Electrolytes showed elevated potassium of 5.9, and the patient had a BUN of 108 creatinine 4.87, she is about to be di alyzed in the next 15 minutes. Inflammatory markers showed LDH of 891 C- reactive protein is 9.7, ferritin is 2220. Chest x-ray continues to show bilateral interstitial infiltrates Reevaluated today on 05/04/2020 patient remains in the ICU, intubated and mechanically ventilated. Patient is on assist control rate of 32, volume control +420, inspiratory time is 0.90 seconds, FiO2 50% and PEEP of 12. ABG showed a pO2 of 73 pCO2 of 44 pH of 7.29. PEEP was decreased down to 10. The other vent settings as noted. Patient is on propofol at 40 mcg/kg/m, fentanyl at 20 mcg/kg/h, his also on IV fluid at KVO, receiving enteral feeding. Patient will likely be dialyzed again depending on her potassium today. Her arterial line does not seem to be functional today, hence a new arterial line was placed in the right radial artery. Chest x-ray continues to show bilateral interstitial infiltrates. Slightly worsening left lower lobe infiltrate, but improving right lower lobe infiltrate. Electrolytes are normal except for potassium of 5.9. BUN is 98 creatinine 4.23. LDH and C-reactive protein are improving compared to yesterday. Blood cultures sputum cultures and urine cultures are pending these were sent yesterday again. Sputum culture so far is showing Brittney albicans. And her urine is showing Brittney and gram-negative bacilli. Patient is being followed by infectious disease on the case. Presently on Zosyn and daptomycin. Reevaluated today on 05/05/2020, patient remains in the ICU, intubated and mechanically ventilated. Patient remains on mechanical ventilation, assist cont rol rate of 32 tidal volume is 420, volume control plus, FiO2 50%, PEEP is 10. I was able to get the PEEP down to 8 today. Patient remains on propofol at 40 mcg/kg/m, she is also on fentanyl, IV fluid at KVO. Patient is having positive blood cultures, and the concern is catheter related sepsis especially with the patient having a dialysis catheter in her right groin, and she has a PICC line. This was addressed by infectious disease on the case, recommended more blood cultures to be drawn from the PICC line and blood cultures to be drawn from the dialysis catheter, in the meantime patient was started on daptomycin. Patient is supposed to undergo tracheostomy and PEG tube placement today. I had a long discussion yesterday with her nephew who is a retired physician, updated on her condition, and he seems to be agreeable with the rest of the family members according to him to proceed with tracheostomy and PEG tube placement. Patient had hemodialysis yesterday, and 2 L were taken off. Again the major concern at this point is the fact that she has E. coli infection in the urine, and she has positive blood cultures what seems to be staph epidermidis. And it is most likely related to catheter related sepsis. Chest x-ray continues to show bilateral interstitial infiltrates/interstitial edema. Objective - Vital Signs Vital signs: Vital Signs Temp 97.4 F L 05/05/20 12:00 Pulse 54 L 05/05/20 13:00 Resp 32 H 05/05/20 13:00 BP 118/62 05/05/20 09:00 Pulse Ox 96 05/05/20 13:00 Intake & Output 05/04/20 05/05/20 05/05/20 18:59 06:59 18:59 Intake Total 3543.317 0301.916 598.317 Output Total 2345 75 30 Balance -705.626 972.916 568.317 Weight 121.6 kg 121.6 kg Intake: IV 654 336 261 0.9% KVO 240 200 140 Diana flush 36 36 21 DAPTOmycin 750 mg In 50 Sodium Chloride 0.9% 50 ml @ 100 mls/hr IVPB Q48H PERRY Rx#:[id number] Piperacillin-Tazobactam 3 328 100 100 .375 gm In Sodium Chloride 0.9% 100 ml @ 25 mls/hr IVPB Q12HR PERRY Rx #:[id number] Intake, IV Titration 391.374 434.916 337.317 Amount fentaNYL (PF) 1,000 mcg 97.128 149.045 142.121 In Sodium Chloride 0.9% 80 ml @ Per Protocol IV . Q0M PERRY Rx#:[id number] propofoL 1,000 mg In 294.246 285.871 195.196 Empty Bag 1 bag @ Titrate IV .Q0M PERRY Rx#: [id number] Tube Feeding 204 187 Hemodialysis 300 Other 90 90 Output: Urine 45 75 30 Hemodialysis 2300 Other: Voiding Method Indwelling Catheter Indwelling Catheter Indwelling Catheter ABP, PAP, CO, CI - Last Documented Arterial Blood Pressure 125/44 - Exam Physical Exam: Revealed a 69-year-old female , intubated and mechanically ventilated. Head: Atraumatic normocephalic. The tracheal tube and orogastric tubes are intact. HEENT: PERRLA,, EOMI, nonicteric. Moist mucous membranes Chest: [Symmetrical chest expansion, crackles at the bases persists. Cardiac Exam: [Normal S1 and S2, no S3 gallop, no murmur.] Abdomen: [Soft, nontender, no megaly, no rebound, no guarding, normal bowel sounds.] Extremities: [No clubbing, 2+ bipedal edema, no cyanosis.] Neurological Exam: [Not assessed, patient is sedated, she is on propofol and fentanyl. Psychiatric: Could not be assessed. Skin: No rashes. - Labs CBC & Chem 7: 05/05/20 04:20 05/05/20 04:20 Labs: Abnormal Lab Results - Last 24 Hours (Table) 05/04/20 05/04/20 05/04/20 Range/Units 17:38 19:58 23:51 WBC (3.8-10.6) k/uL RBC (3.80-5.40) m/uL Hct (34.0-46.0) % Neutrophils # (1.3-7.7) k/uL Lymphocytes # (1.0-4.8) k/uL D-Dimer (<0.60) mg/L FEU ABG pH (7.35-7.45) ABG pO2 (83-108) mmHg Sodium (137-145) mmol/L Potassium (3.5-5.1) mmol/L Carbon Dioxide (22-30) mmol/L BUN (7-17) mg/dL Creatinine (0.52-1.04) mg/dL Glucose (74-99) mg/dL POC Glucose (mg/dL) 109 H 124 H 135 H (75-99) mg/dL Calcium (8.4-10.2) mg/dL Ferritin (10.0-291.0) ng/mL Lactate Dehydrogenase (313-618) U/L CK-MB (CK-2) (0.0-2.4) ng/mL 05/05/20 05/05/20 05/05/20 Range/Units 04:18 04:20 04:20 WBC 23.9 H (3.8-10.6) k/uL RBC 3.58 L (3.80-5.40) m/uL Hct 33.5 L (34.0-46.0) % Neutrophils # 22.4 H (1.3-7.7) k/uL Lymphocytes # 0.3 L (1.0-4.8) k/uL D-Dimer 6.69 H (<0.60) mg/L FEU ABG pH (7.35-7.45) ABG pO2 (83-108) mmHg Sodium (137-145) mmol/L Potassium (3.5-5.1) mmol/L Carbon Dioxide (22-30) mmol/L BUN (7-17) mg/dL Creatinine (0.52-1.04) mg/dL Glucose (74-99) mg/dL POC Glucose (mg/dL) 124 H (75-99) mg/dL Calcium (8.4-10.2) mg/dL Ferritin (10.0-291.0) ng/mL Lactate Dehydrogenase (313-618) U/L CK-MB (CK-2) (0.0-2.4) ng/mL 05/05/20 05/05/20 05/05/20 Range/Units 04:20 04:20 04:20 WBC (3.8-10.6) k/uL RBC (3.80-5.40) m/uL Hct (34.0-46.0) % Neutrophils # (1.3-7.7) k/uL Lymphocytes # (1.0-4.8) k/uL D-Dimer (<0.60) mg/L FEU ABG pH (7.35-7.45) ABG pO2 (83-108) mmHg Sodium 130 L (137-145) mmol/L Potassium 5.5 H (3.5-5.1) mmol/L Carbon Dioxide 20 L (22-30) mmol/L BUN 85 H (7-17) mg/dL Creatinine 3.89 H (0.52-1.04) mg/dL Glucose 128 H (74-99) mg/dL POC Glucose (mg/dL) (75-99) mg/dL Calcium 7.6 L (8.4-10.2) mg/dL Ferritin 1884.9 H (10.0-291.0) ng/mL Lactate Dehydrogenase 942 H (313-618) U/L CK-MB (CK-2) 2.7 H (0.0-2.4) ng/mL 05/05/20 05/05/20 05/05/20 Range/Units 07:33 07:49 11:33 WBC (3.8-10.6) k/uL RBC (3.80-5.40) m/uL Hct (34.0-46.0) % Neutrophils # (1.3-7.7) k/uL Lymphocytes # (1.0-4.8) k/uL D-Dimer (<0.60) mg/L FEU ABG pH 7.29 L (7.35-7.45) ABG pO2 80 L (83-108) mmHg Sodium (137-145) mmol/L Potassium (3.5-5.1) mmol/L Carbon Dioxide (22-30) mmol/L BUN (7-17) mg/dL Creatinine (0.52-1.04) mg/dL Glucose (74-99) mg/dL POC Glucose (mg/dL) 129 H 233 H (75-99) mg/dL Calcium (8.4-10.2) mg/dL Ferritin (10.0-291.0) ng/mL Lactate Dehydrogenase (313-618) U/L CK-MB (CK-2) (0.0-2.4) ng/mL Microbiology - Last 24 Hours (Table) 05/03/20 11:55 Blood Culture - Preliminary Blood No Growth after 48 hours 05/03/20 10:00 Blood Culture Gram Stain - Preliminary Blood Blood Culture - Preliminary Coagulase Negative Staph 05/03/20 11:10 Gram Stain - Final Sputum Sputum Culture - Final Brittney albicans 05/03/20 10:00 Urine Culture - Final Urine,Catheterized Escherichia coli Brittney albicans 04/30/20 12:20 Blood Culture - Preliminary Blood No Growth after 96 hours 05/03/20 10:00 Blood Culture - Final Blood Assessment and Plan Assessment: Impression: Acute hypoxic respiratory failure secondary to covid 19 pneumonitis. Requiring intubation and mechanical ventilation on 04/24/2020, scheduled to undergo PEG tube placement and tracheostomy today Remote history of nicotine dependence. Obesity with body index of 35. Elevated d-dimer but negative for pulmonary embolism. Paroxysmal atrial fibrillation with RVR, Acute kidney injury from Covid 19 infection requiring hemodialysis. Elevated liver enzymes secondary to viral pneumonia. Elevated inflammatory markers continue to viral pneumonia. LDH today is 942, ferritin is 1884, and C-reactive protein is 7. improving today compared to previous labs. Gram-positive bacteremia, possible catheter related sepsis, blood cultures to be drawn from the PICC line and from the dialysis catheter, in the meantime daptomycin was added. Recommendation: Tracheostomy and PEG tube placement today. Decrease PEEP to 8. Continue to monitor in the ICU. Continue mechanical ventilation, GI prophylaxis, nutritional/enteral feeding. Nutritional support. Patient to be restarted back on enteral feeding tomorrow once the PEG tube is placed. More blood cultures to be drawn from PICC line and from dialysis catheter, in the meantime continue daptomycin. Continue the present cocktail for covid 19 pneumonitis. Finished her full course of remdesivir, and to units of convalescent plasma. Continue Solu-Medrol, presently on 60 mg IV push every 6 hours. and continue, vitamin C, vitamin D, and zinc. Continue Lovenox. 30 mg subcu daily. We'll continue to follow in the ICU I had a long discussion with her nephew who is a retired physician yesterday, and update him on her condition and our plans regarding PEG tube placement and tracheostomy. Critical care time is 35 minutes. Not including time spent on procedures. Time with Patient: Greater than 30
--- NOTE | 2020-05-05 15:36 | P.OP ---
Date of Procedure: 05/05/20 Preoperative Diagnosis: Respiratory failure Malnutrition Postoperative Diagnosis: Respiratory failure Malnutrition Procedure(s) Performed: Tracheostomy Placement of PEG tube Anesthesia: MAC Surgeon: Charles Herman Estimated Blood Loss (ml): 5 Pathology: none sent Condition: stable Disposition: PACU Description of Procedure: The patient's placed on the operating table in supine position. She received general endotracheal tube anesthesia. Her neck was prepped and draped usual fashion. A standard [place] incision was made approximately 3 cm above the sternal notch. Using electrocautery subcutaneous tissue divided. The strap muscle were divided midline. A pair of wheat [place] retractors placed a wound. The pretracheal fat was then divided with cautery. The trachea was exposed. The anterior tube was inserted into the right mainstem bronchus. The trachea is in performed between the second third tracheal rings. A #8 Portex extended length tube was placed in the trachea. The balloon was inflated and total CO2 was confirmed. The skin was then closed using 3-0 nylon suture. The tracheostomy was secured. Patient was sent to the ventilator and received adequate tidal volumes. Next the gastro-/oropharynx passed in the esophagus and stomach. The anterior a bdominal wall was visualized. The light reflux was seen in the anterior abdominal wall. The skin and assembled local Xylocaine. A skin incision made with an 11 blade. The knee was then placed into the stomach under direct visualization. The needle was then snared and the wire was placed through the needle. The wire was inserted and the wire was brought through the oropharynx. The PEG tube placed overtop the wire brought down to the stomach. PEG tube secured at the 4 cm ana. Patient top she will was sent back to the ICU in stable condition.
--- NOTE | 2020-05-05 16:13 | XR ---
EXAMINATION TYPE: XR chest 1V portable DATE OF EXAM: 05/05/2020 COMPARISON: 05/05/2020 INDICATION: Possible pneumothorax TECHNIQUE: Single frontal view of the chest is obtained. FINDINGS: The heart size is indistinct. The pulmonary vasculature is indistinct.. There is diffuse groundglass opacity through the right lung which is worsened from comparison. There is complete opacification of the left lung with a few air bronchograms in the perihilar region. PICC line enters on the left with the tip in the midline. This is unchanged from comparison. Nasogast bin tube is been removed. The endotracheal tube is been replaced, tip appears to be at the origin of the right main bronchus. Report was called to patient's nurse by Dr. Melara by telephone at the сергей e of dictation. IMPRESSION: 1. Endotracheal tube tip at the origin of the right main bronchus. This should be pulled back approxi mately 3 cm. 2. Suspected atelectasis left lung. 3. Correlate for worsening volume overload
--- NOTE | 2020-05-05 16:21 | XR ---
EXAMINATION TYPE: XR chest 1V portable DATE OF EXAM: 05/05/2020 CLINICAL HISTORY: Difficulty breathing progress study. TECHNIQUE: Single AP portable supine view of the chest is obtained. COMPARISON: Chest x-ray from earlier today and older studies FINDINGS: Tracheostomy tube position now terminates above antwon with improved aeration in the left lung. Stable left-sided PICC line. Reticulonodular increased opacities bilaterally on current study. Cardiac silhouette size stable and upper limits of normal change in the aortic knob. Osseous structures are intact. IMPRESSION: Improved aeration left lung after tracheostomy tube tip retraction.
--- NOTE | 2020-05-05 16:41 | PN ---
PROGRESS NOTE Patient is seen for followup for acute kidney injury, currently hemodialysis-dependent. The patient remains on the vent. Case was discussed with nursing staff. FiO2 is stable. She is going for trach and PEG tube placement today. Exam was not performed. It was discussed with nursing staff. Blood pressure was 118/62, heart rate 53 per minute. She is afebrile. Examination shows continued presence of edema bilaterally. Patient is tolerating p.o. feeds. She is currently sedated. Labs show sodium of 130, potassium 5.5, chloride 100. CO2 is 20, BUN 85, serum creatinine 3.89. ASSESSMENT: 1. Acute kidney injury, acute tubular necrosis, hemodialysis-dependent. Patient will be dialyzed today. She tolerated her treatment fairly well yesterday. We had UF of about 2.3 L yesterday. 2. COVID-19 pneumonia, currently on the vent. 3. Acute hypoxic respiratory failure. Patient remains on the vent, going for trach and PEG tube placement today. 4. Hyperkalemia secondary to hypercatabolic state. Patient will be dialyzed again today and we will plan for a treatment again tomorrow. She will be dialyzed with a larger dialyzer as well. Tube feeds have been changed to Nepro. PLAN: Continue with Nepro tube feedings. Discontinue IV fluids and then hemodialysis today. Continue antibiotics. Treat the hyperkalemia with insulin and D50 if patient is going for surgery prior to her dialysis. MMODL / IJN: [id number] /
--- NOTE | 2020-05-05 18:11 | CDI ---
Documentation Clarification Form Date: 05/05/2020 06:08PM From: Pamela Wrihgt RN CCDS Admit Date: 04/11/2020 04:50:00 PM Patient Name: Olga Mccoy Visit Number: [id number] Discharge Date: ATTENTION: The Clinical Documentation Specialists (CDI) and [facility] Coding Staff appreciate your assistance in clarifying documentation. Please respond to the clarification below the line at the bottom and electronically sign. The CDI & [facility] Coding staff will review the response and follow-up if needed. Please note: Queries are made part of the Legal Health Record. If you have any questions, please contact the author of this message via ITS. Dr. Joe Pinedo The patient presented as a transfer from [place] with increasing shortness of breath, fever, cough, diarrhea and diagnosed with COVID at health department and patient was hypoxic SpO2 80% 12L oxygen. History/Risk Factors: 69-year-old female with medical history of HTN and hypothyroidism. Clinical Indicators: Admitting Diagnosis: Acute COVID 19 Infection, Acute bilateral interstitial pneumonia with Acute hypoxic respiratory failure. 04/26 Infectious Disease progress note: Patient with acute respiratory failure secondary to COVID-19 pneumonia with a concern for possible acute respiratory distress syndrome/cytokine storm with elevated inflammatory markers. Inflammatory Lab Markers:04/11 LDH 1701; CRP 224.2; 04/19 LDH 2500; CRP 144.2 04/27: LDH 1773; CRP 40.5 Creatinine: 04/23 0.50; 04/24 0.46; 04/25 1.34; 04/26 2.84; 04/30 4.97 Urine culture 05/05: Escherichia coli and Brittney albicans Radiology findings: CXR 04/21: Interstitial infiltrates persistent in the mid and lower lungs are becoming more confluent in the left base Vital Signs: 04/21 0400 B/P 145/103; HR 118; Temp 102.2 F Axillary; RR 26; SpO2 88% BiPAP 04/24 1800 B/P 93/49 HR 128 RR 30 SpO2 100% Mechanical Ventilation B/P: 04/24 1900 85/58; 04/24 2000 105/70; 04/24 2100 133/88; 04/24 2200 96/70; 04/24 2300 102/69. B/P: 04/25 0400 91/61; 04/25 0500 92/56; 04/25 0600 95/60; 04/25 0700 94/55. Treatment: 04/30 Norepinephrine IVPB; 05/03 Zoysn IVPB Q12HR; 04/24 0.9ns 1L Bolus; 04/25 0.9ns 1.5L Bolus. 04/23 Fluconazole IVPB Daily; Hemodialysis started 04/26 High Flow nasal cannula started 04/11 BiPAP and High flow oxygen started 04/13 Mechanical Ventilation 04/24 Consults: 04/25: Nephrology- Acute kidney injury secondary to ATN secondary to hypotension, hemodynamic instability and infection. In your professional opinion, can you please clarify Cytokine Release Syndrome? * Grade 1 Cytokine Release Syndrome * Grade 2 Cytokine Release Syndrome * Grade 3 Cytokine Release Syndrome * Grade 4 Cytokine Release Syndrome * Other, please specify * Unable to determine Clinical Criteria to the Cytokine Release Syndrome Grade 1 CRS - includes low grade fever with or without constitutional symptoms (e.g., nausea, headache and myalgia). Grade 2 CRS - is a moderate reaction that includes fever with hypotension not requiring vasopressors and/or hypoxia requiring the use of oxygen delivered by low-flow nasal cannula (=6 L/minute) or blow-by. Grade 3 CRS - includes fever with hypotension requiring one vasopressor with or without vasopressin and/or hypoxia requiring high-flow nasal cannula (>6 L/minute), facemask, nonrebreather mask, or venturi mask not attributable to any other cause. Grade 4 CRS - includes fever with hypotension requiring multiple vasopressors (excluding vasopressin) and/or hypoxia requiring positive pressure (e.g., CPAP, bilevel positive airway pressure, intubation, mechanical ventilation) not attributable to any other cause. Irrespective of total cumulative dose, the use of multiple vasopressors constitutes grade 4 CRS. Grade 5 CRS - is defined as due to CRS. Unable to determine (Last Revision: July 2017) MTDD
--- NOTE | 2020-05-05 18:56 | CDI ---
Documentation Clarification Form Date: 05/05/2020 06:11:41 PM From: Pamela Wright RN CCDS Admit Date: 04/11/2020 04:50:00 PM Patient Name: Olga Mccoy Visit Number: [id number] Discharge Date: ATTENTION: The Clinical Documentation Specialists (CDI) and [facility] Coding Staff appreciate your assistance in clarifying documentation. Please respond to the clarification below the line at the bottom and electronically sign. The CDI & [facility] Coding staff will review the response and follow-up if needed. Please note: Queries are made part of the Legal Health Record. If you have any questions, please contact the author of this message via ITS. Dr. Diaz Khris Positive urine culture showing a gram negative covered with Zosyn. At this point, adjust antibiotic further based on culture report. ID progress note 05/04 History/Risk Factors: 69-year-old female presented as a transfer from [place] positive COVID, worsening shortness of breath. Medical history: HTN Hypothyroidism Clinical Indicators: [place] Catheter insertion 04/13 Vital Signs 05/03: B/P 159/45; HR 59; Temp 96.5 F Axillary; RR 32; 93% Mechanical Ventilation WBC 05/03: 31.3 Urine culture 05/05: Escherichia coli and Brittney albicans Treatment: 04/23 Fluconazole IVPB Daily. Antibiotics: 05/03 Zosyn IVPB Q12HR Please document the condition that these clinical indicators signify, whether Present on Admission, and cause if known: UTI due to kilgore catheter UTI not due to kilgore catheter Other, please specify Unable to determine UTI due to kilgore catheter (Last Revision: January 2017) VANITAD
[2020-05-05 19:45] LABS: Glucose,Whole Blood 101 mg/dL (75-99)
--- NOTE | 2020-05-05 19:53 | CDI ---
Documentation Clarification Form Date: 05/05/2020 07:01:51 PM From: Pamela Wright RN CCDS Admit Date: 04/11/2020 04:50:00 PM Patient Name: Olga Mccoy Visit Number: [id number] Discharge Date: ATTENTION: The Clinical Documentation Specialists (CDI) and [facility] Coding Staff appreciate your assistance in clarifying documentation. Please respond to the clarification below the line at the bottom and electronically sign. The CDI & [facility] Coding staff will review the response and follow-up if needed. Please note: Queries are made part of the Legal Health Record. If you have any questions, please contact the author of this message via ITS. Dr. Amisha Aguila Hypotension from sepsis, currently off pressors. Is documented in Nephrology progress note 05/01 History/Risk Factors: 69-year-old female presented as a transfer from [place] positive COVID, worsening shortness of breath. Medical history: HTN Hypothyroidism Clinical Indicators: Admitting Diagnosis: Acute COVID 19 Infection, Acute bilateral interstitial pneumonia with Acute hypoxic respiratory failure. Vital Signs: 04/24 B/P 93/80; HR 94; RR 23; Temp 97.6 F Axillary; SpO2 91% Mechanical Ventilation 04/25: Nephrology- Acute kidney injury secondary to ATN secondary to hypotension, hemodynamic instability and infection. 04/26 Infectious Disease progress note: Patient with acute respiratory failure secondary to COVID-19 pneumonia with a concern for possible acute respiratory distress syndrome/cytokine storm with elevated inflammatory markers. 04/24 1800 B/P 93/49 HR 128 RR 30 SpO2 100% Mechanical Ventilation B/P: 04/24 1900 85/58; 04/24 2000 105/70; 04/24 2100 133/88; 04/24 2200 96/70; 04/24 2300 102/69. B/P: 04/25 0400 91/61; 04/25 0500 92/56; 04/25 0600 95/60; 04/25 0700 94/55. WBC 04/24: 28.6 Inflammatory Lab Markers:04/11 LDH 1701; CRP 224.2; 04/19 LDH 2500; CRP 144.2 04/27: LDH 1773; CRP 40.5 04/23 CXR: Fine interstitial infiltrates primarily in the mid and lower lungs persist. Treatment: Hemodialysis started 04/26 Antibiotics: 04/21 Zosyn IVPB Q8HR changed 04/26 Q12HR; 05/04 Daptomycin IVPB Q48HR IV Bolus: 04/24 0.9ns 1L Bolus; 04/25 0.9ns 1.5L Bolus. 05/04 Daptomycin IVPB Q48HR Other: 04/30 Norepinephrine IVPB Consults: Nephrology and Infectious disease above. In your professional opinion, please clarify if these findings. Sepsis with septic shock Other, please specify Unable to determine SIRS Criteria (2 or more of the following may indicate SIRS): -Temperature < 96.8F (36C) or > 101.0F (38.3C) -Heart Rate > 90 bpm -Respiratory Rate > 20 breaths/min or PaCO2 < 32 mmHg -White Blood Cell Count > 12,000 or < 4,000 cells/mm3 or > 10% bands -Lactate >2.0 mmol/L (>4.0 is equivalent to septic shock) (Last Revision: July 2017) Sepsis with septic shock MTDD
[2020-05-05 23:57] LABS: Glucose,Whole Blood 93 mg/dL (75-99)
[2020-05-06] MEDS: NOREPINEPHRINE 8 MG in SODIUM CHLORIDE 0.9% 250 ML IV SCH (00:06)
[2020-05-06] MEDS: INSULIN ASPART (NovoLOG) 100 UNIT/ML VIAL SQ SCH ×6 (00:06→20:49)
[2020-05-06] MEDS: methylPREDNISolone SOD SUCCI 125 MG/2 ML VIAL IV SCH ×4 (00:13→17:32)
[2020-05-06] MEDS: fentaNYL (PF) 1,000 MCG in SODIUM CHLORIDE 0.9% 80 ML IV SCH ×4 (01:25→22:36)
[2020-05-06 04:11] LABS: Glucose,Whole Blood 110 mg/dL (75-99)
[2020-05-06 04:23] LABS: Basophils # (A) 0.1 k/uL (0-0.2); Basophils % (A) 0 %; Eosinophils % (A) 0 %; HCT 33.2 % (34.0-46.0); HGB 11.5 gm/dL (11.4-16.0); Lymphocytes # (A) 0.4 k/uL (1.0-4.8); Lymphocytes % (A) 1 %; MCHC 34.6 g/dL (31.0-37.0); MCV 92.6 fL (80.0-100.0); Mean Platelet Volume 8.3; Monocytes # (A) 0.9 k/uL (0-1.0); Monocytes % (A) 4 %; Neutrophils % (A) 94 %; Platelet Count 176 k/uL (150-450); RBC 3.58 m/uL (3.80-5.40); RDW 13.6 % (11.5-15.5); WBC 26.5 k/uL (3.8-10.6)
[2020-05-06 04:33] LABS: Albumin 2.2 g/dL (3.5-5.0); Calcium 7.6 mg/dL (8.4-10.2); Potassium 5.4 mmol/L (3.5-5.1); Total Bilirubin 0.6 mg/dL (0.2-1.3); Total Protein 4.6 g/dL (6.3-8.2)
[2020-05-06 05:17] LABS: ABG Base Excess -4.7 mmol/L; ABG HCO3 21 mmol/L (21-25); ABG Oxygen Saturation 94.1 % (94-97); ABG PCO2 40 mmHg (35-45); ABG PH 7.33 (7.35-7.45); ABG PO2 71 mmHg (83-108); ABG TCO2 23 mmol/L (19-24); Allen Test Performed? Yes
[2020-05-06] MEDS: LEVOTHYROXINE 50 MCG TAB PO SCH (06:01)
[2020-05-06] MEDS: ALBUTEROL HFA INHALER INHALATION SCH ×4 (07:33→19:48)
[2020-05-06 08:19] LABS: Glucose,Whole Blood 105 mg/dL (75-99)
--- NOTE | 2020-05-06 08:26 | PN ---
PROGRESS NOTE Mrs. Mccoy is maintaining sinus rhythm. She has had a trach and a PEG. I am recommending that we can resume full heparin intravenously and then switch her to Eliquis 2.5 mg b.i.d. Vitals are stable. From a cardiac standpoint, I would recommend anticoagulation, amiodarone at 200 mg daily, and I will continue to see her as needed. MMODL / IJN: [id number] /
--- NOTE | 2020-05-06 09:16 | XR ---
EXAMINATION TYPE: XR chest 1V portable DATE OF EXAM: 05/06/2020 Comparison: 05/05/2020 Clinical History: 69-year-old female ICU management Findings: Tracheostomy cannula is visualized. Appropriate positioning can be correlated clinically. The inferio r tip appears to be satisfactory, 5 cm from the antwon. Heart upper limits of normal in size. Aortic arch calcifications. Interstitial opacities particularly in the mid and lower lungs relatively similar to prior exam. No sizable effusion. Impression: Mid and lower lung interstitial infiltrates, pneumonitis versus interstitial pulmonary edema, relativ nohemy similar.
[2020-05-06] MEDS: AMIODARONE 200 MG TAB PO SCH (10:25)
[2020-05-06] MEDS: ENOXAPARIN 30 MG/0.3 ML SYRINGE SQ SCH (10:25)
[2020-05-06] MEDS: PIPERACILLIN-TAZOBACTAM 3.375 GM in SODIUM CHLORIDE 0.9% 100 ML IVPB SCH ×2 (10:25→21:07)
[2020-05-06] MEDS: CHLORHEXIDINE GLUCONATE 15 ML CUP MUCOUS MEM SCH ×2 (10:25→20:59)
--- NOTE | 2020-05-06 11:02 | P.PN ---
Subjective Progress Note Date: 05/06/20 CHIEF COMPLAINT: Shortness of breath HISTORY OF PRESENT ILLNESS: Patient hospitalized for 19 pneumonia currently in the ICU intubated. Patient is status post trach and PEG tube placement yesterday with Dr. Herman. 2 feedings will be started today. She's currently on hemodialysis. Nursing staff did report a cough leak at the bulb. Respiratory therapy has been notified and they'll be adding air to the bulb. Patient afebrile. WBC 26.5 PHYSICAL EXAM: VITAL SIGNS: Reviewed. GENERAL: Well-developed in no acute distress. HEENT: No sclera icterus. Extraocular movements grossly intact. Moist buccal mucosa. Head is atraumatic, normocephalic. Trach site clean and dry ABDOMEN: Soft. Nondistended. Nontender. PEG tube site clean dry and intact NEUROLOGIC: Intubated and sedated ASSESSMENT: 1. Severe protein calorie malnutrition. Patient is status post PEG tube placement 2. Acute hypoxic respiratory failure secondary to Covid 19 pneumonitis. Patient is status post tracheostomy PLAN: -Patient to be started on tube feedings today -Continue supportive care -Continue to monitor tracheostomy site Physician Top And Trim Worker note has been reviewed by physician. Signing provider agrees with the documented findings, assessment, and plan of care. Objective - Vital Signs Vital signs: Vital Signs Temp 97.8 F 05/06/20 08:00 Pulse 89 05/06/20 10:00 Resp 34 H 05/06/20 10:00 BP 96/59 05/06/20 10:00 Pulse Ox 86 L 05/06/20 10:00 Intake & Output 05/05/20 05/06/20 05/06/20 18:59 06:59 18:59 Intake Total 1008.483 781.041 229.672 Output Total 2550 70 37 Balance -1541.517 711.041 192.672 Weight 121.6 kg 121.5 kg Intake: IV 380 376 92 0.9% KVO 200 240 80 Piperacillin-Tazobactam 3 100 100 .375 gm In Sodium Chloride 0.9% 100 ml @ 25 mls/hr IVPB Q12HR [facility] Rx #:[id number] Pressure Bag 30 36 12 Intake, IV Titration 628.483 405.041 137.672 Amount fentaNYL (PF) 1,000 mcg 233.287 135.774 64.226 In Sodium Chloride 0.9% 80 ml @ Per Protocol IV . Q0M PERRY Rx#:[id number] propofoL 1,000 mg In 395.196 269.267 73.446 Empty Bag 1 bag @ Titrate IV .Q0M PERRY Rx#: [id number] Output: Urine 40 70 37 Hemodialysis 2500 Estimated Blood Loss 10 Other: Voiding Method Indwelling Catheter Indwelling Catheter ABP, PAP, CO, CI - Last Documented Arterial Blood Pressure 113/42 - Labs CBC & Chem 7: 05/06/20 04:10 05/06/20 04:10 Labs: Abnormal Lab Results - Last 24 Hours (Table) 05/05/20 05/05/20 05/05/20 Range/Units 04:20 11:33 19:43 WBC (3.8-10.6) k/uL RBC (3.80-5.40) m/uL Hct (34.0-46.0) % Neutrophils # (1.3-7.7) k/uL Lymphocytes # (1.0-4.8) k/uL ABG pH (7.35-7.45) ABG pO2 (83-108) mmHg Sodium (137-145) mmol/L Potassium (3.5-5.1) mmol/L Carbon Dioxide (22-30) mmol/L BUN (7-17) mg/dL Creatinine (0.52-1.04) mg/dL Glucose (74-99) mg/dL POC Glucose (mg/dL) 233 H 101 H (75-99) mg/dL Calcium (8.4-10.2) mg/dL Ferritin 1884.9 H (10.0-291.0) ng/mL ALT (4-34) U/L Total Protein (6.3-8.2) g/dL Albumin (3.5-5.0) g/dL 05/06/20 05/06/20 05/06/20 Range/Units 04:10 04:10 04:10 WBC 26.5 H (3.8-10.6) k/uL RBC 3.58 L (3.80-5.40) m/uL Hct 33.2 L (34.0-46.0) % Neutrophils # 25.0 H (1.3-7.7) k/uL Lymphocytes # 0.4 L (1.0-4.8) k/uL ABG pH (7.35-7.45) ABG pO2 (83-108) mmHg Sodium 130 L (137-145) mmol/L Potassium 5.4 H (3.5-5.1) mmol/L Carbon Dioxide 20 L (22-30) mmol/L BUN 72 H (7-17) mg/dL Creatinine 3.63 H (0.52-1.04) mg/dL Glucose 100 H (74-99) mg/dL POC Glucose (mg/dL) 110 H (75-99) mg/dL Calcium 7.6 L (8.4-10.2) mg/dL Ferritin (10.0-291.0) ng/mL ALT 67 H (4-34) U/L Total Protein 4.6 L (6.3-8.2) g/dL Albumin 2.2 L (3.5-5.0) g/dL 05/06/20 05/06/20 Range/Units 05:11 08:08 WBC (3.8-10.6) k/uL RBC (3.80-5.40) m/uL Hct (34.0-46.0) % Neutrophils # (1.3-7.7) k/uL Lymphocytes # (1.0-4.8) k/uL ABG pH 7.33 L (7.35-7.45) ABG pO2 71 L (83-108) mmHg Sodium (137-145) mmol/L Potassium (3.5-5.1) mmol/L Carbon Dioxide (22-30) mmol/L BUN (7-17) mg/dL Creatinine (0.52-1.04) mg/dL Glucose (74-99) mg/dL POC Glucose (mg/dL) 105 H (75-99) mg/dL Calcium (8.4-10.2) mg/dL Ferritin (10.0-291.0) ng/mL ALT (4-34) U/L Total Protein (6.3-8.2) g/dL Albumin (3.5-5.0) g/dL Microbiology - Last 24 Hours (Table) 05/03/20 10:00 Blood Culture Gram Stain - Final Blood Blood Culture - Final Staphylococcus epidermidis 04/30/20 12:20 Blood Culture - Preliminary Blood No Growth after 120 hours 05/03/20 11:55 Blood Culture - Preliminary Blood No Growth after 48 hours 05/03/20 11:10 Gram Stain - Final Sputum Sputum Culture - Final Brittney albicans 05/03/20 10:00 Urine Culture - Final Urine,Catheterized Escherichia coli Brittney albicans
[2020-05-06] MEDS ORDERED: DEXTROSE 5% IN WATER 250 ML with AMIODARONE 300 MG IV ONE (12:01)
[2020-05-06 12:03] LABS: Glucose,Whole Blood 101 mg/dL (75-99)
[2020-05-06] MEDS: DAPTOmycin 750 MG in SODIUM CHLORIDE 0.9% 50 ML IVPB SCH (12:12)
[2020-05-06] MEDS ORDERED: DEXTROSE 5% IN WATER 100 ML with AMIODARONE 150 MG IV ONE (12:15)
[2020-05-06] MEDS: DEXTROSE 5% IN WATER 100 ML with AMIODARONE 150 MG IV SCH ×2 (12:20→15:36)
--- NOTE | 2020-05-06 12:59 | P.PN ---
Subjective Progress Note Date: 05/06/20 Principal diagnosis: Acute hypoxic respiratory failure secondary to covid 19 pneumonitis This 69-year-old white female patient who was admitted to the hospital on 04/11/2020 when she came in for evaluation of 1 week history of cough, fever, shortness of breath, decreased appetite and intermittent episodes of diarrhea. Patient was diagnosed with COVID 19 pneumonia, this was done via outpatient testing through the health Department. Patient initially presented at [facility], she was hypoxemic with a pulse ox in the 80s and she was placed on high flow oxygen and transferred to the [facility]. CT angiogram of the chest showed no evidence of pulmonary embolism, however it showed evidence of bilateral interstitial infiltrates consistent with COVID 19 pneumonitis. Patient completed her Remdesivir treatment on 04/16/2020, she received 2 units of convalescent plasma, she remains on IV steroids with IV Solu-Medrol. In view of her worsening hypoxemia patient was transferred to the intensive care unit, she is intubated on 04/24/2020 05/02/2020, the patient remains intubated on a mechanical ventilator. She remains on propofol which is running at 35 mcg/kg per minute and the patient is on fentanyl running at 1 g per KG per hour. The patient is well sedated and, comfortable suggest a mechanical ventilator. Her vent settings are essentially the same. The patient is on a VC plus mode with a rate of 32 and FiO2 of 50% with a PEEP of 15 and a tidal volume of 400. Peak airway pressures 31, static pressures probably 38. Blood gas showed a pH of 7.27 with a pCO2 of 51 and pO2 of 69 and the blood is essentially stable and comparable to yesterday's value. The patient has no major secretions. The chest x-ray stable with diffuse breath and pulmonary infiltrates and there is no evidence of pneumothorax. ET tube is in good location. She remains on Solu-Medrol 60 mg every 6 hours inpatient LDH level is down to 792 and the CRP level is down to 16.4 and the d-dimer today is at 3.47. She is afebrile. She has a small amount of diarrhea and fecal management system is in place. Urine output is minimal and the patient is re ceiving dialysis periodically. Her last bout of dialysis was yesterday. This was done successfully. Total of 3 L of ultrafiltration was performed without causing any significant hemodynamic changes. In fact she became slightly hypoxic as the patient was being weaned off the propofol and ultimately propofol was restarted. Triglyceride levels are at 285. She is receiving enteral feeding for nutritional support. She remains on vital high protein at the rate of 27 mL an hour and she is essentially at goal. She weighs was restarted yesterday and there is no significant residuals. No emesis. She was having issues with frequent PVCs and short runs of atrial fibrillation yesterday. Based on that, cardiology restarted the patient on amiodarone drip at 0.5 mg shows and a Cardizem drip has been discontinued. Liver function tests from today shows an AST of 48, ALT of 148 and an alkaline phosphatase of 72. Reevaluated today on 05/03/2020, patient remains intubated and mechanically tonya tilated. She is presently on tidal volume was 420, volume control plus, assist control rate of 32, FiO2 50%, and PEEP is 12. Peak airway pressure is 32, plateau pressure is 25. ABG this morning showed a pO2 of 77 pCO2 of 51 pH of 7.2. 2. Patient remains on propofol is also on fentanyl, both were placed on hold this morning, and soon as the patient was waking up, her blood pressure was in the 200 range systolic. Patient was not awake enough to follow any instructions, hence I recommended that she remains back on propofol and fentanyl. Patient is receiving dialysis through a right hemodialysis catheter in the groin. Patient is receiving enteral feeding/Nepro . Her white count is noted to be elevated today, and her pro calcitonin level was also noted to be a bit elevated, hence I recommended adding Zosyn this will be added empirically, and cultures were ordered. Patient is a good set up for catheter sepsis. Patient was intubated on 04/24/2020, and over the next few days if the patient does not tolerate weaning may have to consider tracheostomy and PEG tube placement. Her ABG remains marginal and her PEEP remains relatively high at 12, FiO2 is at 50%, but she is nowhere near weaning at this point. WBC count today is up to 31.3, hemoglobin is 11.3. Electrolytes showed elevated potassium of 5.9, and the patient had a BUN of 108 creatinine 4.87, she is about to be di alyzed in the next 15 minutes. Inflammatory markers showed LDH of 891 C- reactive protein is 9.7, ferritin is 2220. Chest x-ray continues to show bilateral interstitial infiltrates Reevaluated today on 05/04/2020 patient remains in the ICU, intubated and mechanically ventilated. Patient is on assist control rate of 32, volume control +420, inspiratory time is 0.90 seconds, FiO2 50% and PEEP of 12. ABG showed a pO2 of 73 pCO2 of 44 pH of 7.29. PEEP was decreased down to 10. The other vent settings as noted. Patient is on propofol at 40 mcg/kg/m, fentanyl at 20 mcg/kg/h, his also on IV fluid at KVO, receiving enteral feeding. Patient will likely be dialyzed again depending on her potassium today. Her arterial line does not seem to be functional today, hence a new arterial line was placed in the right radial artery. Chest x-ray continues to show bilateral interstitial infiltrates. Slightly worsening left lower lobe infiltrate, but improving right lower lobe infiltrate. Electrolytes are normal except for potassium of 5.9. BUN is 98 creatinine 4.23. LDH and C-reactive protein are improving compared to yesterday. Blood cultures sputum cultures and urine cultures are pending these were sent yesterday again. Sputum culture so far is showing Brittney albicans. And her urine is showing Brittney and gram-negative bacilli. Patient is being followed by infectious disease on the case. Presently on Zosyn and daptomycin. Reevaluated today on 05/05/2020, patient remains in the ICU, intubated and mechanically ventilated. Patient remains on mechanical ventilation, assist cont rol rate of 32 tidal volume is 420, volume control plus, FiO2 50%, PEEP is 10. I was able to get the PEEP down to 8 today. Patient remains on propofol at 40 mcg/kg/m, she is also on fentanyl, IV fluid at KVO. Patient is having positive blood cultures, and the concern is catheter related sepsis especially with the patient having a dialysis catheter in her right groin, and she has a PICC line. This was addressed by infectious disease on the case, recommended more blood cultures to be drawn from the PICC line and blood cultures to be drawn from the dialysis catheter, in the meantime patient was started on daptomycin. Patient is supposed to undergo tracheostomy and PEG tube placement today. I had a long discussion yesterday with her nephew who is a retired physician, updated on her condition, and he seems to be agreeable with the rest of the family members according to him to proceed with tracheostomy and PEG tube placement. Patient had hemodialysis yesterday, and 2 L were taken off. Again the major concern at this point is the fact that she has E. coli infection in the urine, and she has positive blood cultures what seems to be staph epidermidis. And it is most likely related to catheter related sepsis. Chest x-ray continues to show bilateral interstitial infiltrates/interstitial edema. Reevaluated today on 05/06/2020, patient remains in the ICU, intubated and mechanically ventilated. Patient underwent tracheostomy and PEG tube placement yesterday. She is now on volume control plus mode of mechanical ventilation, rate is 32, tidal volume is 420, inspiratory time is 0.90, FiO2 is 50%, and PEEP is 8. Patient remains on propofol, at 40 mcg/kg/m, fentanyl at 1.5 mcg/kg/h, IV fluid at KVO, and she is undergoing hemodialysis today. More blood cultures were ordered to be done from the PICC line and from her dialysis catheter, May have to seriously consider changing her dialysis catheter to another site, this will be reevaluated by infectious disease on the case, and cultures from the sites are pending. Patient was started and a daptomycin, and her white count is coming down, most recent blood cultures remain negative. Yesterday the patient was dialyzed, 2.5 L were removed, and the plan is to remove 3 L today. Antibiotics hernandez, patient is on Zosyn and daptomycin. ABG today showed a pO2 of 71 pCO2 of 40 pH of 7.33. Electrolytes showed low sodium of 130 slightly elevated potassium of 5.4 BUN is 72 creatinine 3.63. WBC count is coming down to 26.5, hemoglobin is 11.5. Chest x-ray continues to show lower interstitial infiltrates, difficult to tell whether these are interstitial edema related because of her fluid overload and renal failure, or related to her underlying covid 19 pneumonitis. Objective - Vital Signs Vital signs: Vital Signs Temp 97.8 F 05/06/20 12:00 Pulse 151 H 05/06/20 12:00 Resp 36 H 05/06/20 12:00 BP 93/46 05/06/20 11:50 Pulse Ox 98 05/06/20 12:00 Intake & Output 05/05/20 05/06/20 05/06/20 18:59 06:59 18:59 Intake Total 1008.483 781.041 639.672 Output Total 2550 70 1037 Balance -1541.517 711.041 -397.328 Weight 121.6 kg 121.5 kg Intake: IV 380 376 138 0.9% KVO 200 240 120 Piperacillin-Tazobactam 3 100 100 .375 gm In Sodium Chloride 0.9% 100 ml @ 25 mls/hr IVPB Q12HR PERRY Rx #:[id number] Pressure Bag 30 36 18 Intake, IV Titration 628.483 405.041 437.672 Amount DAPTOmycin 750 mg In 100 Sodium Chloride 0.9% 50 ml @ 100 mls/hr IVPB Q48H PERRY Rx#:[id number] Dextrose 5% in Water 100 100 ml @ 103 mls/hr IV .Q1H P[facility]Y with Amiodarone 150 mg Rx#:[id number] fentaNYL (PF) 1,000 mcg 233.287 135.774 64.226 In Sodium Chloride 0.9% 80 ml @ Per Protocol IV . Q0M PERRY Rx#:[id number] propofoL 1,000 mg In 395.196 269.267 173.446 Empty Bag 1 bag @ Titrate IV .Q0M [facility] Rx#: [id number] Tube Feeding 34 Other 30 Output: Urine 40 70 37 Hemodialysis 2500 1000 Estimated Blood Loss 10 Other: Voiding Method Indwelling Catheter Indwelling Catheter ABP, PAP, CO, CI - Last Documented Arterial Blood Pressure 95/70 - Exam Physical Exam: Revealed a 69-year-old female , intubated and mechanically ventilated. Head: Atraumatic normocephalic. Tracheostomy is intact. HEENT: PERRLA,, EOMI, nonicteric. Moist mucous membranes Chest: [Symmetrical chest expansion, crackles at the bases persists. Cardiac Exam: [Normal S1 and S2, no S3 gallop, no murmur.] Abdomen: [Soft, nontender, no megaly, no rebound, no guarding, normal bowel sounds.] PEG tube is intact. Extremities: [No clubbing, 2+ bipedal edema, no cyanosis.] Neurological Exam: [Not assessed, patient is sedated, she is on propofol and fentanyl. These certainly placed on hold today, and addressed mental status if possible. Psychiatric: Could not be assessed. Skin: No rashes. - Labs CBC & Chem 7: 05/06/20 04:10 05/06/20 04:10 Labs: Abnormal Lab Results - Last 24 Hours (Table) 05/05/20 05/06/20 05/06/20 Range/Units 19:43 04:10 04:10 WBC 26.5 H (3.8-10.6) k/uL RBC 3.58 L (3.80-5.40) m/uL Hct 33.2 L (34.0-46.0) % Neutrophils # 25.0 H (1.3-7.7) k/uL Lymphocytes # 0.4 L (1.0-4.8) k/uL ABG pH (7.35-7.45) ABG pO2 (83-108) mmHg Sodium (137-145) mmol/L Potassium (3.5-5.1) mmol/L Carbon Dioxide (22-30) mmol/L BUN (7-17) mg/dL Creatinine (0.52-1.04) mg/dL Glucose (74-99) mg/dL POC Glucose (mg/dL) 101 H 110 H (75-99) mg/dL Calcium (8.4-10.2) mg/dL ALT (4-34) U/L Total Protein (6.3-8.2) g/dL Albumin (3.5-5.0) g/dL 05/06/20 05/06/20 05/06/20 Range/Units 04:10 05:11 08:08 WBC (3.8-10.6) k/uL RBC (3.80-5.40) m/uL Hct (34.0-46.0) % Neutrophils # (1.3-7.7) k/uL Lymphocytes # (1.0-4.8) k/uL ABG pH 7.33 L (7.35-7.45) ABG pO2 71 L (83-108) mmHg Sodium 130 L (137-145) mmol/L Potassium 5.4 H (3.5-5.1) mmol/L Carbon Dioxide 20 L (22-30) mmol/L BUN 72 H (7-17) mg/dL Creatinine 3.63 H (0.52-1.04) mg/dL Glucose 100 H (74-99) mg/dL POC Glucose (mg/dL) 105 H (75-99) mg/dL Calcium 7.6 L (8.4-10.2) mg/dL ALT 67 H (4-34) U/L Total Protein 4.6 L (6.3-8.2) g/dL Albumin 2.2 L (3.5-5.0) g/dL 05/06/20 Range/Units 12:02 WBC (3.8-10.6) k/uL RBC (3.80-5.40) m/uL Hct (34.0-46.0) % Neutrophils # (1.3-7.7) k/uL Lymphocytes # (1.0-4.8) k/uL ABG pH (7.35-7.45) ABG pO2 (83-108) mmHg Sodium (137-145) mmol/L Potassium (3.5-5.1) mmol/L Carbon Dioxide (22-30) mmol/L BUN (7-17) mg/dL Creatinine (0.52-1.04) mg/dL Glucose (74-99) mg/dL POC Glucose (mg/dL) 101 H (75-99) mg/dL Calcium (8.4-10.2) mg/dL ALT (4-34) U/L Total Protein (6.3-8.2) g/dL Albumin (3.5-5.0) g/dL Microbiology - Last 24 Hours (Table) 05/03/20 10:00 Blood Culture Gram Stain - Final Blood Blood Culture - Final Staphylococcus epidermidis 04/30/20 12:20 Blood Culture - Preliminary Blood No Growth after 120 hours 05/03/20 11:55 Blood Culture - Preliminary Blood No Growth after 48 hours 05/03/20 11:10 Gram Stain - Final Sputum Sputum Culture - Final Brittney albicans 05/03/20 10:00 Urine Culture - Final Urine,Catheterized Escherichia coli Brittney albicans Assessment and Plan Assessment: Impression: Acute hypoxic respiratory failure secondary to covid 19 pneumonitis. Requiring intubation and mechanical ventilation on 04/24/2020, Status post tracheostomy and PEG tube placement on 05/05/2020. Obesity with body index of 35. Elevated d-dimer but negative for pulmonary embolism. Paroxysmal atrial fibrillation with RVR, Acute kidney injury from Covid 19 infection requiring hemodialysis. Patient will be dialyzed today. Elevated liver enzymes secondary to viral pneumonia. Elevated inflammatory markers continue to viral pneumonia. No inflammatory markers were checked today. Gram-positive bacteremia, eating addressed by infectious disease on the case Recommendation: Continue ventilatory support, patient is presently on FiO2 of 50% and PEEP of 8, Restart enteral feeding via PEG tube. Continue to monitor in the ICU. Continue mechanical ventilation, GI prophylaxis, nutritional/enteral feeding. Awaiting final report on blood cultures and decide whether the dialysis catheter needs to be removed and replaced. And whether the PICC line needs to be removed and replaced. In the meantime continue daptomycin. Patient is also on Zosyn. Continue the present cocktail for covid 19 pneumonitis. Finished her full course of remdesivir, and to units of convalescent plasma. Continue Solu-Medrol, presently on 60 mg IV push every 6 hours. and continue, vitamin C, vitamin D, and zinc. Continue Lovenox. 30 mg subcu daily. Remains critically ill, we'll continue to follow in the ICU, will attempt trials off sedation and off narcotics. And hopefully be able to assess mental status. However previously the patient had episodes of atrial fibrillation/paroxysmal once off sedation Critical care time is 33 minutes. Not including time spent on procedures. Time with Patient: Greater than 30
[2020-05-06] MEDS: FOLIC ACID 1 MG TAB PO SCH (13:04)
[2020-05-06] MEDS: FAMOTIDINE 20 MG TAB OG-TUBE SCH (13:04)
[2020-05-06] MEDS: ZINC SULFATE 220 MG CAP PO SCH (13:04)
[2020-05-06] MEDS: CHOLECALCIFEROL 25 MCG (1000 IU) TABLET PO SCH (13:05)
[2020-05-06] MEDS: THIAMINE 100 MG TAB PO SCH (13:05)
[2020-05-06] MEDS: ASCORBIC ACID 500 MG TAB PO SCH (13:05)
[2020-05-06] MEDS: MULTIVITAMINS, THERA 1 EACH TAB PO SCH (13:05)
[2020-05-06] MEDS: NOREPINEPHRINE 32 MG in SODIUM CHLORIDE 0.9% 218 ML IV SCH (14:21)
--- NOTE | 2020-05-06 14:56 | P.PN ---
Subjective Progress Note Date: 05/06/20 Ms. Mccoy is a 69-year-old female with a past medical history of hypertension and thyroid disorder admitted to the hospital for acute hypoxic respiratory failure secondary to COVID 19 pneumonia. Patient has extensive bilateral interstitial pneumonia. She is on a low and pulmonary Dr. Mathews is following the patient. Patient received a convalescent plasma, is also on Remdesivir. On 04/17/2020- This morning patient was evaluated in the ICU. Patient is comfortably sitting in a chair states that her breathing is improving gradually. She denies having any chest pain or palpitations. No cough or hemoptysis. She denies having any swelling or for lower extremities. No abdominal pain nausea vomiting or diarrhea. She denies having any dysuria or hematuria, she has a Bryan's catheter in place. On reviewing her vitals temperature 98.1 heart rate 75 is 5817, blood pressure 1:30 bradycardia. Saturating at 96% on a Aervo -60%. On 04/18/2020 - patient was seen and examined in the ICU. Patient is sitting in a chair by the bedside, states that her breathing has worsened compared to yesterday. Patient is on high flow Airvo, saturating in the low 90s. She denies having any chest pain or palpitations. She complains of cough that is nonproductive. Patient had a chest x-ray done showing stable bilateral air space disease. As the patient was having few episodes of tachycardia, she was started on Lopressor this morning. Patient's inflammatory markers are noted to be high. On reviewing her vitals saturating at 90% on high flow Airvo, heart rate 70s to 80s, respiratory rate 20-25, blood pressure 106-67. In reviewing her labs white count of 29.3, hemoglobin 16.8, platelets 369. D-dimer 6.99, LDH 2969, CRP 63.9. On 04/19/2020 - patient is seen and examined in the ICU. She is currently on BiPAP, as her respiratory status has worsened compared to yesterday. Patient denies having any chest pain or palpitations. No abdominal pain nausea vomiting or diarrhea. No dysuria or hematuria. She is on BiPAP 14/6 and 100% FiO2. On reviewing her vitals temperature is 99.2, respiratory rate is 25, heart rate 70, blood pressure 10 9 x 71. Reviewing the labs white count of 27.3, hemoglobin 17.4, platelets 314. Sodium 133, potassium 4.4, chloride 90, bicarbonate 35, BUN 31, creatinine 0.72. Ferritin 3195, CRP 217 and LDH 2747. 04/20/2020 This is a pleasant 69 years old female with multiple medical problems was admitted for bilateral Covid pneumonia, she is currently on aervo at 90%/60 L of oxygen, saturating 89%. Rest of Vitas looks stable Also she is on BiPAP All the night. She is able to eat and drink, no pressors She is on normal saline at 75 mL/h with adequate urine output Patient is currently ON Medrol 40 mg twice daily, Lovenox 60 mg twice Mary and vitamin C and zinc. She finished her remdisvir and convelecent plasma. 04/21/2020 Patient remains in the ICU bed and respiratory support for her bilateral Covid pneumonia. She still dyspneic especially with exertion and she still needs BiPAP during the day shift. Also she had a fever today of 102.2. Patient is empirically on Zosyn/calcitonin check today showing normal level at 0.07. She has leukocytosis of 29K. I agree with Zosyn and I recommended to continue with that for now. Also patient is on steroids 60 mg every 6 hours. As there is no more significant progress progress in her clinical picture Glucose is 123 and inflammatory markers still elevated 04/22/2020 this is a pleasant 69 yo F who is admitted to the ICU for covid pneumonia, she is still on BiPAP dependant , TNP is started for her nutrition for this reasone. her oxygen saturation is on low 90s% cxr: diffuse interstitial opacities and worsening airspace disease in the left lower lung. consider interstitial edema wbc is sligtly less 26K, she is currently continued on zosyn , and solumedrol 60 mg. and normal saline increased to 150 ml/hr. and lovenox 60 mg BID she finised her Remdisvir and convelescent Plasma. 04/23/2020 Patient looks very tired, she came Off the BiPAP today morning and she was placed back on airvo at 60 L she is back and forth between BiPAP and airvo, however she probably will need BiPAP at night Inflammatory markers and d-dimer increased, ferritin 3100 up to 3700 and d-dimer 3 up to 5 Chest x-ray showing bilateral middle and lower infiltrates with slight improvement Treatments with antibiotics Zosyn, fluconazole was added today. Also she is also on Solu-Medrol 60 mg, normal sling was decreased to 50 mL per hour, Lovenox 60 mg twice daily, TPN and she is on vitamin C and zinc 04/24/2020 Patient today her clinical condition deteriorated, she was hypoxic this morning with oxygen saturation in the 70s percent and she was tachycardic with heart rate 140-150, patient ended up being intubated in the morning and she was in an you onset of A. fib and started on Cardizem drip on 15 mg however her heart rate was still elevated, cardiology team were consulted, blood pressure was on the low normal side. Amiodarone drip was started. Cardiology team and Cardizem drip was shut to 15 mg/h. Also insulin drip for hyperglycemia with sugar more than 300. 04/25/2020 Patient was intubated yesterday for deteriorated respiratory status, ABG showing elevated pCO2 on 496 with acidosis. 7.0 and 7.1. Oxygen saturation is acceptable at 107. She remains on mechanical ventilation managed by pulmonary/critical care team, currently her bruits and draped with before meals at 40 to help with her acidosis. Her creatinine worsened today 0.5 up to 1.3, with potassium elevated as well as 5.5 nephrology team were consulted who ordered insulin/dextrose 50%, sodium bicarb 1 and Lasix 80 mg 1. Stained Glass Joiner recommended hemodialysis and no improvement in 24 hours Chest x-ray showing pneumonia and edema which is stable from yesterday. Sugar improved and we could switch her insulin drip to insulin sliding scale A. fib is improved and converted to sinus rhythm with amiodarone which is swi tched to [facility] per [facility], She Is Already on Anticoagulation 04/26/20 Patient remains in the ICU sedated and intubated with pulmonary/ critical care team following the case closely. Showing trending down leukocytosis to 20 6.1K. Creatinine up to 2.8, Patient is developing anuria with acute kidney injury, nephrology evaluation is appreciated and hemodialysis is initiated. Chest x-ray showing interstitial infiltrate especially in the mid to lower lungs Echocardiogram showed ejection fraction of 55-60%, and atrial fibrillation improved yesterday with amiodarone She remains on Solu-Medrol, Zosyn and fluconazole, normal sinus 50 and vitamin C and zinc Lovenox dose was adjusted to renal function down to 50 mg daily Prognosis remains guarded 04/27/2020 Patient with bilateral: With pneumonia that her purse and eventually got intubated, pulmonary/critical care team and several consultants are following the case, vent management as per pulmonary team. She has leukocytosis of 13.8 K. Creatinine today is 3.37 Patient undergoing hemodialysis for the last 2-3 days for acute kidney injury and [facility] Patient A. fib heart rate becomes uncontrolled today and her amiodarone to switch to a drip. Other medication including Solu-Medrol 60 mg, vitamin C and zinc, Zosyn and fluconazole, she is on normal saline at 50 mL/h and Lovenox dose dropped to 30 mg daily 04/28/2020 Patient remains intubated and sedated in the ICU, followed closely by critical care team. Vital showing tachycardia and tachypnea. WBC is 30 3.5K. Creatinine 3.8, sodium 134. Sugar is controlled. Inflammatory markers are elevated. She is undergoing hemodialysis today Chest x-ray from today showing no change from last one yesterday Medication-hernandez he remains on Solu-Medrol, Zosyn, 30 mg of Lovenox daily which is renal dose and amiodarone drip. Normal saline at 50 mm was discontinued today 04/29/2020 This is a pleasant 69 years old female with bilateral, with pneumonia. Patient remains in the ICU sedated and intubated with pulmonary/critical care team following the case closely. Normal sedation holiday for the patient currently She already finished her treatment with remdesivir and convalescent plasma, and currently she is on vitamin C and zinc. She was on steroids in the form of high dose of Solu-Medrol 60 mg and Zosyn and fluconazole for possible bacteria and fungal infection associated with viral infection. Patient course was complicated by renal failure and new or so she underwent hemodialysis, last HD was yesterday, she is kept on renal dose of Lovenox 30 mg daily. Other compli cation is atrial fibrillation with RVR which is currently controlled with oral amiodarone and low-dose of Cardizem drip. Patient condition remains critical and she kept on mechanical ventilation with close monitoring Procalcitonin is unchanged yesterday at 0.39 compared to one week ago at 0.39. We'll order another test tomorrow 04/30/2020 Patient is seen and evaluated and follow-up continues to remain closely monitored in the ICU. Patient continues to be on a mechanical ventilator intubated and sedated currently off paralytics. Patient being followed by multiple medical consultations including cardiology, pulmonary, nephrology. Patient currently receiving hemodialysis for ultrafiltration and became extremely hypotensive maxing out on pressors and dialysis was aborted. Patient prognosis is extremely guarded and poor at this time. Patient continues to be on IV steroids along with Lovenox vitamin C and D and zinc supplements and will continue. Patient is also maintained on IV antibiotics in the form of Zosyn and vancomycin being added. Patient currently off of IV amiodarone and IV Cardizem and transitioned to oral amiodarone and will continue at this time. Chest x-ray continues to show interstitial pneumonia with bilateral basilar infiltrates and tiny effusions. She also had an abdominal x-ray showing nonspecific abdomen with no diagnostic evidence of obstruction. White blood count today is 27.9, hemoglobin is stable at 12.7, d-dimer is elevated although slowly trending down at 3.04, current sodium is 129, potassium is 5.9, BUN is 103 with a creatinine of 4.97. Attempts at ultrafiltration today his potassium is elevated. Nephrology is following closely. 05/01/20 Patient remains in the ICU intubated on mechanical ventilation with pulmonary/critical care team following closely. Patient today underwent sedation holiday and into hours she started becoming agitated and developed atrial fibrillation's with RVR, she has to be placed back on amiodarone drip and Cardizem drip 10 mg per hour before it was converted to sinus rhythm again Currently she is tachypneic with a breathing rate around 32. She is saturating 91% on FiO2 of 60% Leukocytosis 27.9 yesterday and 24.6K today. D-dimer stable at 3.7 so she kept on the same dose of Lovenox Inflammatory markers including LDH, protein and C-reactive protein went up slightly today. Patient remains anuric and undergoing hemodialysis She remains on Zosyn and fluconazole, she got 2 doses of IV vancomycin yesterday and today. Also she is on zinc and vitamin C, Lovenox 30 mg daily. Diflucan was stopped 05/02/2020 Patient remains intubated and sedated in the ICU was followed closely by pulmonary/critical care team and for vent management. Patient also with A. fib on several occasions needing Cardizem and amiodarone, cardiology following the patient Patient is still undergoing hemodialysis for anuria and acute kidney injury, nephrology team on the case x-ray showed improvement bibasilar infiltrates She is on some Medrol 60 mg daily, antibiotics were stopped 2 days ago. She is also on Lovenox 30 mg daily, vitamin C and zinc 05/03/2020 Patient is seen this morning currently remains in the ICU receiving hemodialysis today. Multiple medical consultations following. Patient remains on mechanical vent and is intubated and sedated and will continue at this time. D-dimer is elevated at 5.50, sodium is 132, potassium is 5.9, BUN is 108, current creatinine is 4.87. White blood count is 31.3 and hemoglobin is 11.3. Patient blood pressure is elevated as well and has been continuing with daily dialysis. Chest x-rays today show interstitial infiltrates or edema in the mid and lower lungs continue with slight improvement on the left. Patient remains on IV antibiotics in the form of Zosyn and will continue at this time. Infectious disease is following as well. 05/04/2020 Patient is seen in follow-up currently remains in the ICU. Surgical consult was placed for trach and PEG tube placement as patient continues to be on tube feedings and continues to be on a mechanical vent. Dimer elevated at 7.38. Nephrology also following as patient has been receiving hemodialysis and current creatinine today is 4.23 with a BUN of 98 and potassium is 5.9. Patient will be made nothing by mouth and tube feedings held for surgery tomorrow. Family continues to wish for full CODE STATUS. Sputum cultures preliminary showing Brittney albicans and urine showing gram-negative bacilli with Brittney albicans. Infectious disease is following. Patient is maintained on IV antibiotics in the form of Zosyn and daptomycin being added. Will await culture finalization. 05/05/2020 Patient continues to be in the ICU currently on a mechanical vent awaiting PEG tube and trach placement today with surgery. Multiple medical consultations following including nephrology. Potassium was 5.5 this morning and will correct prior to surgery patient will be receiving hemodialysis this afternoon. Infla mmatory markers trending down. Patient is maintained on IV antibiotics in the form of daptomycin along with Zosyn and will continue. Tube feedings on hold this morning for surgery. 05/06/2020 Patient is status post tracheostomy and PEG tube placement and will initiate tube feeds this afternoon per surgery. Patient is currently receiving hemodialysis and nephrology following closely. Patient to continue IV daptomycin and Zosyn. Infectious disease is following. Urine cultures finalized showing E. coli and Brittney. Patient's blood pressures have been on the lower end and elevated heart rate and cardiology following closely. Patient currently on levophed and oral amiodarone. Prognosis remains extremely poor and guarded. Review of systems: Unable to obtain as patient's currently intubated and sedated Active Medications Acetaminophen (Acetaminophen Tab 325 Mg Tab) 650 mg PO Q6HR PRN PRN Reason: Mild Pain or Fever > 100.5 Last Admin: 04/21/20 04:34 Dose: 650 mg Documented by: Albuterol Sulfate (Albuterol Hfa Inhaler) 2 puff INHALATION RT-QID [facility] Last Admin: 05/06/20 11:10 Dose: 2 puff Documented by: Amiodarone HCl (Amiodarone 200 Mg Tab) 200 mg PO DAILY [facility] Last Admin: 05/06/20 10:25 Dose: 200 mg Documented by: Ascorbic Acid (Ascorbic Acid 500 Mg Tab) 250 mg PO DAILY [facility] Last Admin: 05/06/20 13:05 Dose: 250 mg Documented by: Chlorhexidine Gluconate (Chlorhexidine Gluconate 15 Ml Cup) 15 ml MUCOUS MEM BID [facility] Last Admin: 05/06/20 10:25 Dose: 15 ml Documented by: Cholecalciferol (Cholecalciferol 25 Mcg (1000 Iu) Tablet) 25 mcg PO DAILY [facility] Last Admin: 05/06/20 13:05 Dose: 25 mcg Documented by: Enoxaparin Sodium (Enoxaparin 30 Mg/0.3 Ml Syringe) 30 mg SQ DAILY [facility] Last Admin: 05/06/20 10:25 Dose: 30 mg Documented by: Famotidine (Famotidine 20 Mg Tab) 20 mg OG-TUBE Q24HR [facility] Last Admin: 05/06/20 13:04 Dose: 20 mg Documented by: Folic Acid (Folic Acid 1 Mg Tab) 1 mg PO DAILY@1200 [facility] Last Admin: 05/06/20 13:04 Dose: 1 mg Documented by: Propofol 1,000 mg/ IV Solution 100 mls @ 0 mls/hr IV .Q0M [facility]; Protocol Last Admin: 05/06/20 11:25 Dose: 40 mcg/kg/min, 29.184 mls/hr Documented by: Fentanyl Citrate 1,000 mcg/ (Sodium Chloride) 100 mls @ 0 mls/hr IV .Q0M [facility]; Protocol Last Admin: 05/06/20 09:38 Dose: 1.5 mcg/kg/hr, 17.31 mls/hr Documented by: Piperacillin Sod/Tazobactam (Sod 3.375 gm/ Sodium Chloride) 100 mls @ 25 mls/hr IVPB Q12HR [facility] Last Admin: 05/06/20 10:25 Dose: 25 mls/hr Documented by: Daptomycin 750 mg/ Sodium (Chloride) 50 mls @ 100 mls/hr IVPB Q48H [facility]; Pro tocol Last Admin: 05/06/20 12:12 Dose: 100 mls/hr Documented by: Norepinephrine Bitartrate 32 (mg/ Sodium Chloride) 250 mls @ 2.848 mls/hr IV .Q24H [facility]; Protocol Last Admin: 05/06/20 14:21 Dose: 0.05 mcg/kg/min, 2.848 mls/hr Documented by: Insulin Aspart (Insulin Aspart (Novolog) 100 Unit/Ml Vial) 0 unit SQ Q4H [facility]; Protocol Last Admin: 05/06/20 13:05 Dose: Not Given Documented by: Levothyroxine Sodium (Levothyroxine 50 Mcg Tab) 50 mcg PO DAILY@0630 [facility] Last Admin: 05/06/20 06:01 Dose: Not Given Documented by: Methylprednisolone Sodium Succinate (Methylprednisolone Sod Succi 125 Mg/2 Ml Vial) 60 mg IV Q6HR [facility] Last Admin: 05/06/20 12:08 Dose: 60 mg Documented by: Miscellaneous Information (Potassium Replacement Protocol 1 Each Misc) 1 each MISCELLANE DAILY PRN; Protocol PRN Reason: Per Protocol Morphine Sulfate (Morphine Sulfate 2 Mg/Ml Syringe) 2 mg IVP Q6H PRN PRN Reason: Pain/Discomfort Last Admin: 05/05/20 01:29 Dose: 2 mg Documented by: Multivitamins (Multivitamins, Thera 1 Each Tab) 1 each PO DAILY@1200 [facility] Last Admin: 05/06/20 13:05 Dose: 1 each Documented by: Naloxone HCl (Naloxone 0.4 Mg/Ml 1 Ml Vial) 0.2 mg IV Q2M PRN PRN Reason: Opioid Reversal Ondansetron HCl (Ondansetron 4 Mg/2 Ml Vial) 4 mg IVP Q6HR PRN PRN Reason: Nausea And Vomiting Thiamine HCl (Thiamine 100 Mg Tab) 100 mg PO DAILY@1200 [facility] Last Admin: 05/06/20 13:05 Dose: 100 mg Documented by: Zinc Sulfate (Zinc Sulfate 220 Mg Cap) 220 mg PO DAILY [facility] Last Admin: 05/06/20 13:04 Dose: 220 mg Documented by: Objective - Vital Signs Vital signs: Vital Signs Temp 97.8 F 05/06/20 08:00 Pulse 73 05/06/20 11:00 Resp 28 H 05/06/20 11:00 BP 90/47 05/06/20 11:00 Pulse Ox 100 05/06/20 11:00 Intake & Output 05/05/20 05/06/20 05/06/20 18:59 06:59 18:59 Intake Total 1008.483 781.041 369.672 Output Total 2550 70 37 Balance -1541.517 711.041 332.672 Weight 121.6 kg 121.5 kg Intake: IV 380 376 115 0.9% KVO 200 240 100 Piperacillin-Tazobactam 3 100 100 .375 gm In Sodium Chloride 0.9% 100 ml @ 25 mls/hr IVPB Q12HR [facility] Rx #:[id number] Pressure Bag 30 36 15 Intake, IV Titration 628.483 405.041 237.672 Amount fentaNYL (PF) 1,000 mcg 233.287 135.774 64.226 In Sodium Chloride 0.9% 80 ml @ Per Protocol IV . Q0M [facility] Rx#:[id number] propofoL 1,000 mg In 395.196 269.267 173.446 Empty Bag 1 bag @ Titrate IV .Q0M [facility] Rx#: [id number] Tube Feeding 17 Output: Urine 40 70 37 Hemodialysis 2500 Estimated Blood Loss 10 Other: Voiding Method Indwelling Catheter Indwelling Catheter ABP, PAP, CO, CI - Last Documented Arterial Blood Pressure 96/36 - Exam GENERAL: The patient is intubated and sedated currently receiving hemodialysis HEENT: Pupils are round and equally reacting to light. EOMI. No scleral icterus. No conjunctival pallor. Normocephalic, atraumatic. No pharyngeal erythema. No thyromegaly. Tracheostomy noted CARDIOVASCULAR: S1 and S2 present. No murmurs, rubs, or gallops. PULMONARY: Bilateral crackles noted on exam ABDOMEN: Soft, nontender, nondistended, normoactive bowel sounds. No palpable organomegaly. PEG tube noted MUSCULOSKELETAL: No joint swelling or deformity. EXTREMITIES: No cyanosis, clubbing, or pedal edema. Bilateral upper and lower e xtremity edema noted with 2+ pitting in the hands and lower extremities NEUROLOGICAL: Unable to assess, She is currently sedated SKIN: No rashes. no petechiae. - Labs CBC & Chem 7: 05/06/20 04:10 05/06/20 04:10 Labs: Abnormal Lab Results - Last 24 Hours (Table) 05/05/20 05/05/20 05/06/20 Range/Units 04:20 19:43 04:10 WBC (3.8-10.6) k/uL RBC (3.80-5.40) m/uL Hct (34.0-46.0) % Neutrophils # (1.3-7.7) k/uL Lymphocytes # (1.0-4.8) k/uL ABG pH (7.35-7.45) ABG pO2 (83-108) mmHg Sodium (137-145) mmol/L Potassium (3.5-5.1) mmol/L Carbon Dioxide (22-30) mmol/L BUN (7-17) mg/dL Creatinine (0.52-1.04) mg/dL Glucose (74-99) mg/dL POC Glucose (mg/dL) 101 H 110 H (75-99) mg/dL Calcium (8.4-10.2) mg/dL Ferritin 1884.9 H (10.0-291.0) ng/mL ALT (4-34) U/L Total Protein (6.3-8.2) g/dL Albumin (3.5-5.0) g/dL 05/06/20 05/06/20 05/06/20 Range/Units 04:10 04:10 05:11 WBC 26.5 H (3.8-10.6) k/uL RBC 3.58 L (3.80-5.40) m/uL Hct 33.2 L (34.0-46.0) % Neutrophils # 25.0 H (1.3-7.7) k/uL Lymphocytes # 0.4 L (1.0-4.8) k/uL ABG pH 7.33 L (7.35-7.45) ABG pO2 71 L (83-108) mmHg Sodium 130 L (137-145) mmol/L Potassium 5.4 H (3.5-5.1) mmol/L Carbon Dioxide 20 L (22-30) mmol/L BUN 72 H (7-17) mg/dL Creatinine 3.63 H (0.52-1.04) mg/dL Glucose 100 H (74-99) mg/dL POC Glucose (mg/dL) (75-99) mg/dL Calcium 7.6 L (8.4-10.2) mg/dL Ferritin (10.0-291.0) ng/mL ALT 67 H (4-34) U/L Total Protein 4.6 L (6.3-8.2) g/dL Albumin 2.2 L (3.5-5.0) g/dL 05/06/20 Range/Units 08:08 WBC (3.8-10.6) k/uL RBC (3.80-5.40) m/uL Hct (34.0-46.0) % Neutrophils # (1.3-7.7) k/uL Lymphocytes # (1.0-4.8) k/uL ABG pH (7.35-7.45) ABG pO2 (83-108) mmHg Sodium (137-145) mmol/L Potassium (3.5-5.1) mmol/L Carbon Dioxide (22-30) mmol/L BUN (7-17) mg/dL Creatinine (0.52-1.04) mg/dL Glucose (74-99) mg/dL POC Glucose (mg/dL) 105 H (75-99) mg/dL Calcium (8.4-10.2) mg/dL Ferritin (10.0-291.0) ng/mL ALT (4-34) U/L Total Protein (6.3-8.2) g/dL Albumin (3.5-5.0) g/dL Microbiology - Last 24 Hours (Table) 05/03/20 10:00 Blood Culture Gram Stain - Final Blood Blood Culture - Final Staphylococcus epidermidis 04/30/20 12:20 Blood Culture - Preliminary Blood No Growth after 120 hours 05/03/20 11:55 Blood Culture - Preliminary Blood No Growth after 48 hours 05/03/20 11:10 Gram Stain - Final Sputum Sputum Culture - Final Brittney albicans 05/03/20 10:00 Urine Culture - Final Urine,Catheterized Escherichia coli Brittney albicans Assessment and Plan Assessment: COVID 19 pneumonia Status post tracheostomy and PEG tube placement Acute hypoxic respiratory failure-status post intubation and mechanical ventilation New onset A. fib with RVR, currently rate controlled on oral amiodarone, cardiology following Acute kidney injury with anuria status post hemodialysis, nephrology following Increased d-dimer without evidence of PE Hyponatremia Leukocytosis, remains on Zosyn and daptomycin added, infectious disease following Elevated inflammatory markers Hypertension, currently hypotensive and placed on levophed Hypothyroidism History of bilateral posterior tibial tendon repair Obesity with BMI of 40.2 DVT prophylaxis: Subcutaneous Lovenox GI prophylaxis: Pepcid Full code Plan: Continue with current medications. Patient maintained on IV Zosyn and daptomycin. urine and sputum cultures showing Brittney albicans and E. coli. Infectious disease along with pulmonary and cardiology is following. Patient continues to be on mechanical vent and is sedated at this time. Patient is status post tracheostomy and PEG tube placement and will resume tube feedings this afternoon. Nephrology also following as patient has been receiving hemo dialysis. Prognosis remains extremely poor and guarded.
--- NOTE | 2020-05-06 15:33 | PN ---
PROGRESS NOTE DATE OF SERVICE: 05/06/2020 REASON FOR FOLLOWUP: Bacteremia. INTERVAL HISTORY: The patient is currently afebrile. The patient is hemodynamically stable. The patient noticed to have slight hypoxia and the FiO2 has to be up 100%. No significant purulent secretions through the ET. She has been tolerating her tube feeds and no worsening diarrhea has been reported. PHYSICAL EXAMINATION: Blood pressure is 93/50 with a pulse of 138, temperature is 97.8. She is currently 96% on 100% of FiO2. General description is an elderly female intubated on the vent. RESPIRATORY SYSTEM: Unlabored breathing with decreased intensity of breath sounds. No wheeze. HEART: S1, S2. Regular rate and rhythm. ABDOMEN: Soft, no tenderness. LABS: Hemoglobin 11.5, white count 26.5, creatinine 3.63. DIAGNOSTIC IMPRESSION AND PLAN: Patient with a positive blood culture with Staph epidermidis in this patient who did have a right groin dialysis catheter and left PICC line. Repeat blood culture has been ordered. Continue with daptomycin and monitor clinical course closely. Prognosis remains to be guarded. MMODL / IJN: [id number] /
[2020-05-06 15:48] LABS: Glucose,Whole Blood 126 mg/dL (75-99)
--- NOTE | 2020-05-06 16:05 | PN ---
PROGRESS NOTE Patient is seen for followup for acute kidney injury. Patient remains on the vent. She was being dialyzed this morning. We had about 2.5 L of fluid removed yesterday. This morning patient developed hypotension. We had only about a L of fluid removed and patient went into atrial fibrillation with RVR. Patient is status post trach and PEG, which was performed yesterday. FiO2 has been at about 50%, which was increased to 100 this morning. Blood pressure was low this morning. Previously it had been on the higher side. PHYSICAL EXAMINATION: On examination today, patient is on the vent. She is sedated. Blood pressure was 93/46. Heart rate had gone up to 138 per minute. Patient is afebrile. Examination shows decreasing edema in the lower extremities as well as the arms. Abdomen is soft, nontender. EXTRACTOR FILLER exam cannot be performed. LABS: Labs show sodium 130, potassium 5.4, chloride 100, CO2 is 20, BUN 72, creatinine 3.63. Calcium 7.6 mg/dL. Hemoglobin 11.5 g/dL. ASSESSMENT: 1. Acute kidney injury, acute tubular necrosis, oliguric, currently hemodialysis dependent. The patient currently has a femoral catheter. This should be changed to an IJ PermCath. We will hold off on dialysis tomorrow unless her potassium is elevated. 2. Hyperkalemia associated with acute kidney injury. Possible recirculation through the femoral catheter. We will consult Vascular Surgery for IJ catheter placement. 3. COVID-19 pneumonia, currently on the vent, status post remdesivir maintained on steroids. 4. Acute hypoxic respiratory failure secondary to pneumonia. 5. Atrial fibrillation with rapid ventricular response. The patient had been on amiodarone drip and Cardizem drip earlier, this will be restarted. Patient is being followed by Cardiology. PLAN: Repeat labs in a.m. and hold dialysis unless patient is significantly hyperkalemic and proceed with IJ catheter placement when patient is stable in the next 24 hours. MMODL / IJN: [id number] /
[2020-05-06] MEDS: METOPROLOL TARTRATE 25 MG TAB PO SCH (17:33)
[2020-05-06 20:00] LABS: Glucose,Whole Blood 118 mg/dL (75-99)
[2020-05-06] MEDS ORDERED: AMIODARONE 200 MG TAB PO SCH (21:00)
--- NOTE | 2020-05-06 21:00 | XR ---
EXAMINATION: XR chest 1V portable DATE AND TIME: 05/06/2020 8:37 PM CLINICAL INDICATION: PHH; Decreased volume TECHNIQUE: Portable AP semiupright COMPARISON: 05/06/2020 at 6:00 AM FINDINGS: Tracheostomy tube tip superimposed over the mid trachea, projecting just caudal to the level of the c lavicular heads. Allowing for differences in radiographic technique and centering, the tracheostomy t ube tip appears similar in position when compared to this morning's study. The lungs are similar to the prior study, without new process. The pleural spaces are negative. The cardiac silhouette is borderline enlarged. The skeletal structures and soft tissues are negative for acute findings. IMPRESSION: 1. Tracheostomy tube tip appears similar. 2. Mid and lower lung interstitial infiltrates, pneumonitis versus interstitial pulmonary edema, hav e similar appearance.
[2020-05-07 00:47] LABS: Glucose,Whole Blood 117 mg/dL (75-99)
[2020-05-07] MEDS: methylPREDNISolone SOD SUCCI 125 MG/2 ML VIAL IV SCH ×4 (00:54→17:29)
[2020-05-07] MEDS: INSULIN ASPART (NovoLOG) 100 UNIT/ML VIAL SQ SCH ×6 (00:54→22:07)
[2020-05-07] MEDS: fentaNYL (PF) 1,000 MCG in SODIUM CHLORIDE 0.9% 80 ML IV SCH ×3 (03:38→18:12)
[2020-05-07 03:54] LABS: Glucose,Whole Blood 134 mg/dL (75-99)
[2020-05-07 04:07] LABS: HGB 11.1 gm/dL (11.4-16.0); MCH 31.4 pg (25.0-35.0); MCHC 33.6 g/dL (31.0-37.0); MCV 93.5 fL (80.0-100.0); Mean Platelet Volume 8.1; Platelet Count 183 k/uL (150-450); RBC 3.53 m/uL (3.80-5.40); RDW 13.7 % (11.5-15.5); WBC 31.1 k/uL (3.8-10.6)
[2020-05-07 04:16] LABS: Albumin 2.3 g/dL (3.5-5.0); Calcium 7.8 mg/dL (8.4-10.2); Potassium 4.7 mmol/L (3.5-5.1); Total Bilirubin 0.8 mg/dL (0.2-1.3); Total Protein 4.7 g/dL (6.3-8.2)
[2020-05-07 04:23] LABS: Band Neutrophils % 5 %; Lymphocytes # (M) 0.31 k/uL (1.0-4.8); Metamyelocytes # (M) 0.31 k/uL (0); Metamyelocytes % 1 %; Monocytes # (M) 1.24 k/uL (0-1.0); Neutrophils % (M) 90 %; Nucleated Red Blood Cells 0 /100 WBC (0-0); Total Cells Counted 200; Toxic Granulation Present
[2020-05-07 05:22] LABS: ABG Base Excess -4.6 mmol/L; ABG HCO3 22 mmol/L (21-25); ABG PCO2 44 mmHg (35-45); ABG PO2 83 mmHg (83-108); ABG TCO2 23 mmol/L (19-24); Allen Test Performed? Yes
[2020-05-07] MEDS: METOPROLOL TARTRATE 25 MG TAB PO SCH ×2 (06:18→17:27)
[2020-05-07] MEDS: LEVOTHYROXINE 50 MCG TAB PO SCH (06:18)
--- NOTE | 2020-05-07 07:30 | XR ---
EXAMINATION TYPE: XR chest 1V portable DATE OF EXAM: 05/07/2020 HISTORY: Shortness of breath. COMPARISON: 05/06/2020 TECHNIQUE: Single view of the chest is submitted. FINDINGS: Demonstrated are scattered senescent parenchymal change. Coarse perihilar and basilar infiltrates are noted with interval progression. The heart is stable. Hilar and mediastinal structures are within normal limits. Degenerative changes are seen of the dorsal spine. IMPRESSION: 1. Coarse perihilar and basilar infiltrates are noted with interval progression.
[2020-05-07] MEDS ORDERED: DEXTROSE 5% IN WATER 100 ML with AMIODARONE 150 MG IV ONE (07:34)
[2020-05-07] MEDS ORDERED: AMIODARONE 360 MG in DEXTROSE 5% IN WATER 200 ML IV ONE ×2 (07:34)
[2020-05-07] MEDS: ALBUTEROL HFA INHALER INHALATION SCH ×4 (07:41→20:43)
[2020-05-07 07:59] LABS: Glucose,Whole Blood 129 mg/dL (75-99)
[2020-05-07] MEDS: CHOLECALCIFEROL 25 MCG (1000 IU) TABLET PO SCH (08:16)
[2020-05-07] MEDS: CHLORHEXIDINE GLUCONATE 15 ML CUP MUCOUS MEM SCH ×2 (08:16→22:07)
[2020-05-07] MEDS: PIPERACILLIN-TAZOBACTAM 3.375 GM in SODIUM CHLORIDE 0.9% 100 ML IVPB SCH ×2 (08:16→21:56)
[2020-05-07] MEDS: FAMOTIDINE 20 MG TAB OG-TUBE SCH (08:16)
[2020-05-07] MEDS: ZINC SULFATE 220 MG CAP PO SCH (08:16)
[2020-05-07] MEDS: ENOXAPARIN 30 MG/0.3 ML SYRINGE SQ SCH (08:16)
[2020-05-07] MEDS: ASCORBIC ACID 500 MG TAB PO SCH (08:16)
[2020-05-07] MEDS ORDERED: CISATRACURIUM 2 MG/ML 5 ML VIAL IV ONE (09:02)
--- NOTE | 2020-05-07 09:38 | XR ---
EXAMINATION TYPE: XR chest 1V portable DATE OF EXAM: 05/07/2020 COMPARISON: NONE HISTORY: SOB, Follow Up FINDINGS: Indwelling tubes and catheters are unchanged. Coarse perihilar and basilar infiltrates persist however there is interval improvement noted. Stable appearance of the cardio-mediastinal structures at this time. Pleural effusion unchanged. IMPRESSION: 1. Coarse perihilar and basilar infiltrates persist however there is interval improvement noted.Cli nical correlation and follow up until resolution is recommended.
--- NOTE | 2020-05-07 10:29 | PN ---
PROGRESS NOTE Mrs. Mccoy has gone back into atrial fib yesterday. I gave some bolus of amiodarone. This morning, she is in atrial flutter at a rate of 130. I am recommending we discontinue oral amiodarone, give her 150 bolus of amiodarone intravenously and resume the drip. The patient has not been anticoagulated. Otherwise, I had a thought of doing electrical cardioversion. Blood pressure is stable. She is still on a small dose of Levophed and continues to be on dialysis. S1, S2 heard normally with tachycardia. Lungs reveal diminished air entry. Prognosis remains poor. We will continue IV amiodarone and see how she does. MMODL / IJN: [id number] /
[2020-05-07 11:18] LABS: Glucose,Whole Blood 137 mg/dL (75-99)
[2020-05-07] MEDS: MULTIVITAMINS, THERA 1 EACH TAB PO SCH (11:48)
[2020-05-07] MEDS: FOLIC ACID 1 MG TAB PO SCH (11:48)
[2020-05-07] MEDS: THIAMINE 100 MG TAB PO SCH (11:49)
--- NOTE | 2020-05-07 12:33 | P.PN ---
Subjective Progress Note Date: 05/07/20 CHIEF COMPLAINT: Shortness of breath HISTORY OF PRESENT ILLNESS: Patient hospitalized for Covid 19 pneumonia currently in the ICU and intubated. Patient is status post trach and PEG tube placement with Dr. Herman. Patient has been started on tube feedings. Patient has a tracheostomy cuff leak. Patient afebrile. WBC 31.1 PHYSICAL EXAM: VITAL SIGNS: Reviewed. GENERAL: Well-developed in no acute distress. HEENT: No sclera icterus. Extraocular movements grossly intact. Moist buccal mucosa. Head is atraumatic, normocephalic. Trach site clean and dry ABDOMEN: Soft. Nondistended. Nontender. PEG tube site clean dry and intact NEUROLOGIC: Intubated and sedated ASSESSMENT: 1. Severe protein calorie malnutrition. Patient is status post PEG tube placement 2. Acute hypoxic respiratory failure secondary to Covid 19 pneumonitis. Patient is status post tracheostomy PLAN: -Patient is scheduled today for re-vision of trach cuff leak -Continue supportive care -Continue tube feedings per dietitian recommendations Physician Geological Scout note has been reviewed by physician. Signing provider agrees with the documented findings, assessment, and plan of care. Objective - Vital Signs Vital signs: Vital Signs Temp 97.8 F 05/07/20 08:00 Pulse 124 H 05/07/20 11:00 Resp 28 H 05/07/20 11:00 BP 100/58 05/07/20 11:00 Pulse Ox 94 L 05/07/20 11:00 Intake & Output 05/06/20 05/07/20 05/07/20 18:59 06:59 18:59 Intake Total 5202.502 2953.792 626 Output Total 1057 0 15 Balance 35.672 1300.792 611 Weight 121.8 kg 121.8 kg Intake: IV 276 376 115 0.9% KVO 240 240 100 Piperacillin-Tazobactam 3 100 .375 gm In Sodium Chloride 0.9% 100 ml @ 25 mls/hr IVPB Q12HR [facility] Rx #:[id number] Pressure Bag 36 36 15 Intake, IV Titration 637.672 580.792 400 Amount DAPTOmycin 750 mg In 100 Sodium Chloride 0.9% 50 ml @ 100 mls/hr IVPB Q48H [facility] Rx#:[id number] Dextrose 5% in Water 100 100 ml @ 103 mls/hr IV .Q1H [facility] with Amiodarone 150 mg Rx#:[id number] Dextrose 5% in Water 100 100 ml @ 618 mls/hr IV .Q10M ONE with Amiodarone 150 mg Rx#:[id number] Norepinephrine 32 mg In 105.699 Sodium Chloride 0.9% 218 ml @ 0.05 MCG/KG/MIN 2. 848 mls/hr IV .Q24H [facility] Rx#:[id number] Piperacillin-Tazobactam 3 100 .375 gm In Sodium Chloride 0.9% 100 ml @ 25 mls/hr IVPB Q12HR [facility] Rx #:[id number] fentaNYL (PF) 1,000 mcg 164.226 187.127 100 In Sodium Chloride 0.9% 80 ml @ Per Protocol IV . Q0M [facility] Rx#:[id number] propofoL 1,000 mg In 273.446 287.966 100 Empty Bag 1 bag @ Titrate IV .Q0M [facility] Rx#: [id number] Tube Feeding 119 204 51 Other 60 140 60 Output: Urine 57 0 15 Hemodialysis 1000 Other: Voiding Method Indwelling Catheter Indwelling Catheter Indwelling Catheter ABP, PAP, CO, CI - Last Documented Arterial Blood Pressure 112/58 - Labs CBC & Chem 7: 05/07/20 03:44 05/07/20 03:44 Labs: Abnormal Lab Results - Last 24 Hours (Table) 05/06/20 05/06/20 05/07/20 Range/Units 15:46 19:58 00:45 WBC (3.8-10.6) k/uL RBC (3.80-5.40) m/uL Hgb (11.4-16.0) gm/dL Hct (34.0-46.0) % Neutrophils # (Manual) (1.3-7.7) k/uL Lymphocytes # (Manual) (1.0-4.8) k/uL Monocytes # (Manual) (0-1.0) k/uL Metamyelocytes # (Man) (0) k/uL ABG pH (7.35-7.45) Sodium (137-145) mmol/L Carbon Dioxide (22-30) mmol/L BUN (7-17) mg/dL Creatinine (0.52-1.04) mg/dL Glucose (74-99) mg/dL POC Glucose (mg/dL) 126 H 118 H 117 H (75-99) mg/dL Calcium (8.4-10.2) mg/dL AST (14-36) U/L ALT (4-34) U/L Total Protein (6.3-8.2) g/dL Albumin (3.5-5.0) g/dL 05/07/20 05/07/20 05/07/20 Range/Units 03:44 03:44 03:52 WBC 31.1 H (3.8-10.6) k/uL RBC 3.53 L (3.80-5.40) m/uL Hgb 11.1 L (11.4-16.0) gm/dL Hct 33.0 L (34.0-46.0) % Neutrophils # (Manual) 29.50 H (1.3-7.7) k/uL Lymphocytes # (Manual) 0.31 L (1.0-4.8) k/uL Monocytes # (Manual) 1.24 H (0-1.0) k/uL Metamyelocytes # (Man) 0.31 H (0) k/uL ABG pH (7.35-7.45) Sodium 133 L (137-145) mmol/L Carbon Dioxide 21 L (22-30) mmol/L BUN 60 H (7-17) mg/dL Creatinine 3.44 H (0.52-1.04) mg/dL Glucose 119 H (74-99) mg/dL POC Glucose (mg/dL) 134 H (75-99) mg/dL Calcium 7.8 L (8.4-10.2) mg/dL AST 37 H (14-36) U/L ALT 76 H (4-34) U/L Total Protein 4.7 L (6.3-8.2) g/dL Albumin 2.3 L (3.5-5.0) g/dL 05/07/20 05/07/20 05/07/20 Range/Units 05:14 07:58 11:17 WBC (3.8-10.6) k/uL RBC (3.80-5.40) m/uL Hgb (11.4-16.0) gm/dL Hct (34.0-46.0) % Neutrophils # (Manual) (1.3-7.7) k/uL Lymphocytes # (Manual) (1.0-4.8) k/uL Monocytes # (Manual) (0-1.0) k/uL Metamyelocytes # (Man) (0) k/uL ABG pH 7.30 L (7.35-7.45) Sodium (137-145) mmol/L Carbon Dioxide (22-30) mmol/L BUN (7-17) mg/dL Creatinine (0.52-1.04) mg/dL Glucose (74-99) mg/dL POC Glucose (mg/dL) 129 H 137 H (75-99) mg/dL Calcium (8.4-10.2) mg/dL AST (14-36) U/L ALT (4-34) U/L Total Protein (6.3-8.2) g/dL Albumin (3.5-5.0) g/dL Microbiology - Last 24 Hours (Table) 05/04/20 18:49 Blood Culture - Preliminary Blood No Growth after 24 hours 04/30/20 12:20 Blood Culture - Final Blood No Growth after 144 hours 05/03/20 11:55 Blood Culture - Preliminary Blood No Growth after 72 hours 05/03/20 10:00 Blood Culture Gram Stain - Final Blood Blood Culture - Final Staphylococcus epidermidis
--- NOTE | 2020-05-07 13:16 | P.PN ---
Subjective Progress Note Date: 05/07/20 Principal diagnosis: Acute hypoxic respiratory failure secondary to covid 19 pneumonitis This 69-year-old white female patient who was admitted to the hospital on 04/11/2020 when she came in for evaluation of 1 week history of cough, fever, shortness of breath, decreased appetite and intermittent episodes of diarrhea. Patient was diagnosed with COVID 19 pneumonia, this was done via outpatient testing through the health Department. Patient initially presented at [facility], she was hypoxemic with a pulse ox in the 80s and she was placed on high flow oxygen and transferred to the [facility]. CT angiogram of the chest showed no evidence of pulmonary embolism, however it showed evidence of bilateral interstitial infiltrates consistent with COVID 19 pneumonitis. Patient completed her Remdesivir treatment on 04/16/2020, she received 2 units of convalescent plasma, she remains on IV steroids with IV Solu-Medrol. In view of her worsening hypoxemia patient was transferred to the intensive care unit, she is intubated on 04/24/2020 05/02/2020, the patient remains intubated on a mechanical ventilator. She remains on propofol which is running at 35 mcg/kg per minute and the patient is on fentanyl running at 1 g per KG per hour. The patient is well sedated and, comfortable suggest a mechanical ventilator. Her vent settings are essentially the same. The patient is on a VC plus mode with a rate of 32 and FiO2 of 50% with a PEEP of 15 and a tidal volume of 400. Peak airway pressures 31, static pressures probably 38. Blood gas showed a pH of 7.27 with a pCO2 of 51 and pO2 of 69 and the blood is essentially stable and comparable to yesterday's value. The patient has no major secretions. The chest x-ray stable with diffuse breath and pulmonary infiltrates and there is no evidence of pneumothorax. ET tube is in good location. She remains on Solu-Medrol 60 mg every 6 hours inpatient LDH level is down to 792 and the CRP level is down to 16.4 and the d-dimer today is at 3.47. She is afebrile. She has a small amount of diarrhea and fecal management system is in place. Urine output is minimal and the patient is re ceiving dialysis periodically. Her last bout of dialysis was yesterday. This was done successfully. Total of 3 L of ultrafiltration was performed without causing any significant hemodynamic changes. In fact she became slightly hypoxic as the patient was being weaned off the propofol and ultimately propofol was restarted. Triglyceride levels are at 285. She is receiving enteral feeding for nutritional support. She remains on vital high protein at the rate of 27 mL an hour and she is essentially at goal. She weighs was restarted yesterday and there is no significant residuals. No emesis. She was having issues with frequent PVCs and short runs of atrial fibrillation yesterday. Based on that, cardiology restarted the patient on amiodarone drip at 0.5 mg shows and a Cardizem drip has been discontinued. Liver function tests from today shows an AST of 48, ALT of 148 and an alkaline phosphatase of 72. Reevaluated today on 05/03/2020, patient remains intubated and mechanically tonya tilated. She is presently on tidal volume was 420, volume control plus, assist control rate of 32, FiO2 50%, and PEEP is 12. Peak airway pressure is 32, plateau pressure is 25. ABG this morning showed a pO2 of 77 pCO2 of 51 pH of 7.2. 2. Patient remains on propofol is also on fentanyl, both were placed on hold this morning, and soon as the patient was waking up, her blood pressure was in the 200 range systolic. Patient was not awake enough to follow any instructions, hence I recommended that she remains back on propofol and fentanyl. Patient is receiving dialysis through a right hemodialysis catheter in the groin. Patient is receiving enteral feeding/Nepro . Her white count is noted to be elevated today, and her pro calcitonin level was also noted to be a bit elevated, hence I recommended adding Zosyn this will be added empirically, and cultures were ordered. Patient is a good set up for catheter sepsis. Patient was intubated on 04/24/2020, and over the next few days if the patient does not tolerate weaning may have to consider tracheostomy and PEG tube placement. Her ABG remains marginal and her PEEP remains relatively high at 12, FiO2 is at 50%, but she is nowhere near weaning at this point. WBC count today is up to 31.3, hemoglobin is 11.3. Electrolytes showed elevated potassium of 5.9, and the patient had a BUN of 108 creatinine 4.87, she is about to be di alyzed in the next 15 minutes. Inflammatory markers showed LDH of 891 C- reactive protein is 9.7, ferritin is 2220. Chest x-ray continues to show bilateral interstitial infiltrates Reevaluated today on 05/04/2020 patient remains in the ICU, intubated and mechanically ventilated. Patient is on assist control rate of 32, volume control +420, inspiratory time is 0.90 seconds, FiO2 50% and PEEP of 12. ABG showed a pO2 of 73 pCO2 of 44 pH of 7.29. PEEP was decreased down to 10. The other vent settings as noted. Patient is on propofol at 40 mcg/kg/m, fentanyl at 20 mcg/kg/h, his also on IV fluid at KVO, receiving enteral feeding. Patient will likely be dialyzed again depending on her potassium today. Her arterial line does not seem to be functional today, hence a new arterial line was placed in the right radial artery. Chest x-ray continues to show bilateral interstitial infiltrates. Slightly worsening left lower lobe infiltrate, but improving right lower lobe infiltrate. Electrolytes are normal except for potassium of 5.9. BUN is 98 creatinine 4.23. LDH and C-reactive protein are improving compared to yesterday. Blood cultures sputum cultures and urine cultures are pending these were sent yesterday again. Sputum culture so far is showing Brittney albicans. And her urine is showing Brittney and gram-negative bacilli. Patient is being followed by infectious disease on the case. Presently on Zosyn and daptomycin. Reevaluated today on 05/05/2020, patient remains in the ICU, intubated and mechanically ventilated. Patient remains on mechanical ventilation, assist cont rol rate of 32 tidal volume is 420, volume control plus, FiO2 50%, PEEP is 10. I was able to get the PEEP down to 8 today. Patient remains on propofol at 40 mcg/kg/m, she is also on fentanyl, IV fluid at KVO. Patient is having positive blood cultures, and the concern is catheter related sepsis especially with the patient having a dialysis catheter in her right groin, and she has a PICC line. This was addressed by infectious disease on the case, recommended more blood cultures to be drawn from the PICC line and blood cultures to be drawn from the dialysis catheter, in the meantime patient was started on daptomycin. Patient is supposed to undergo tracheostomy and PEG tube placement today. I had a long discussion yesterday with her nephew who is a retired physician, updated on her condition, and he seems to be agreeable with the rest of the family members according to him to proceed with tracheostomy and PEG tube placement. Patient had hemodialysis yesterday, and 2 L were taken off. Again the major concern at this point is the fact that she has E. coli infection in the urine, and she has positive blood cultures what seems to be staph epidermidis. And it is most likely related to catheter related sepsis. Chest x-ray continues to show bilateral interstitial infiltrates/interstitial edema. Reevaluated today on 05/06/2020, patient remains in the ICU, intubated and mechanically ventilated. Patient underwent tracheostomy and PEG tube placement yesterday. She is now on volume control plus mode of mechanical ventilation, rate is 32, tidal volume is 420, inspiratory time is 0.90, FiO2 is 50%, and PEEP is 8. Patient remains on propofol, at 40 mcg/kg/m, fentanyl at 1.5 mcg/kg/h, IV fluid at KVO, and she is undergoing hemodialysis today. More blood cultures were ordered to be done from the PICC line and from her dialysis catheter, May have to seriously consider changing her dialysis catheter to another site, this will be reevaluated by infectious disease on the case, and cultures from the sites are pending. Patient was started and a daptomycin, and her white count is coming down, most recent blood cultures remain negative. Yesterday the patient was dialyzed, 2.5 L were removed, and the plan is to remove 3 L today. Antibiotics hernandez, patient is on Zosyn and daptomycin. ABG today showed a pO2 of 71 pCO2 of 40 pH of 7.33. Electrolytes showed low sodium of 130 slightly elevated potassium of 5.4 BUN is 72 creatinine 3.63. WBC count is coming down to 26.5, hemoglobin is 11.5. Chest x-ray continues to show lower interstitial infiltrates, difficult to tell whether these are interstitial edema related because of her fluid overload and renal failure, or related to her underlying covid 19 pneumonitis. Reevaluated today on 05/07/2020, upon my initial evaluation of the patient, I was notified that the patient is having significant air leak from her tracheostomy. Hence I went ahead and used the bronchoscope, bronchoscope the patient, and over the bronchoscope, the tracheostomy tube was readjusted, and placed about 2.5 cm above the antwon. This was done with direct visualization. Patient was losing significant volume earlier today, however after the adjustment, no further leak was noted. Patient is on assist control rate of 32, tidal volume is 420, FiO2 50%, PEEP of 8. Yesterday patient developed atrial fibrillation with RVR associate with hypotension, this happened as the patient was being weaned from sedatives and narcotics, and the plan was to assess mental status and assess for further weaning if possible. However this was hindered by the fact that the patient developed A. fib with RVR. Today the patient remains on multiple drips including norepinephrine at 0.03 amiodarone at 1 mg drip, she is also on fentanyl, and propofol at 40. ABG today showed a pO2 of 83 pCO2 of 44 pH of 7.30. Remains in A. fib, rate is 104/m, WBC count today is 31.1, hemoglobin is 11.1. Electrolytes are normal however her BUN is 60 creatinine 3.44. Chest x- ray shows coarse perihilar and basilar infiltrates present. Slight improvement compared to previous x-rays. Follow-up blood cultures from 05/04/2020, remain negative. Objective - Vital Signs Vital signs: Vital Signs Temp 97.8 F 05/07/20 08:00 Pulse 124 H 05/07/20 11:00 Resp 28 H 05/07/20 11:00 BP 100/58 05/07/20 11:00 Pulse Ox 94 L 05/07/20 11:00 Intake & Output 05/06/20 05/07/20 05/07/20 18:59 06:59 18:59 Intake Total 3283.671 3312.792 645.082 Output Total 1057 0 15 Balance 35.672 1300.792 630.082 Weight 121.8 kg 121.8 kg Intake: IV 276 376 115 0.9% KVO 240 240 100 Piperacillin-Tazobactam 3 100 .375 gm In Sodium Chloride 0.9% 100 ml @ 25 mls/hr IVPB Q12HR [facility] Rx #:[id number] Pressure Bag 36 36 15 Intake, IV Titration 637.672 580.792 419.082 Amount DAPTOmycin 750 mg In 100 Sodium Chloride 0.9% 50 ml @ 100 mls/hr IVPB Q48H [facility] Rx#:[id number] Dextrose 5% in Water 100 100 ml @ 103 mls/hr IV .Q1H [facility] with Amiodarone 150 mg Rx#:[id number] Dextrose 5% in Water 100 100 ml @ 618 mls/hr IV .Q10M ONE with Amiodarone 150 mg Rx#:[id number] Norepinephrine 32 mg In 105.699 19.082 Sodium Chloride 0.9% 218 ml @ 0.05 MCG/KG/MIN 2. 848 mls/hr IV .Q24H [facility] Rx#:[id number] Piperacillin-Tazobactam 3 100 .375 gm In Sodium Chloride 0.9% 100 ml @ 25 mls/hr IVPB Q12HR [facility] Rx #:[id number] fentaNYL (PF) 1,000 mcg 164.226 187.127 100 In Sodium Chloride 0.9% 80 ml @ Per Protocol IV . Q0M [facility] Rx#:[id number] propofoL 1,000 mg In 273.446 287.966 100 Empty Bag 1 bag @ Titrate IV .Q0M [facility] Rx#: [id number] Tube Feeding 119 204 51 Other 60 140 60 Output: Urine 57 0 15 Hemodialysis 1000 Other: Voiding Method Indwelling Catheter Indwelling Catheter Indwelling Catheter ABP, PAP, CO, CI - Last Documented Arterial Blood Pressure 112/58 - Exam Physical Exam: Revealed a 69-year-old female , intubated and mechanically ventilated. Head: Atraumatic normocephalic. Tracheostomy is intact. Position today via bronchoscope. HEENT: PERRLA,, EOMI, nonicteric. Moist mucous membranes Chest: [Symmetrical chest expansion, crackles at the bases persists. Cardiac Exam: [Normal S1 and S2, no S3 gallop, no murmur.] Abdomen: [Soft, nontender, no megaly, no rebound, no guarding, normal bowel sounds.] PEG tube is intact. Extremities: [No clubbing, 2+ bipedal edema, no cyanosis.] Neurological Exam: [Not assessed, patient is sedated, she is on propofol and fentanyl. These certainly placed on hold today, and addressed mental status if possible. Psychiatric: Could not be assessed. Skin: No rashes. - Labs CBC & Chem 7: 05/07/20 03:44 05/07/20 03:44 Labs: Abnormal Lab Results - Last 24 Hours (Table) 05/06/20 05/06/20 05/07/20 Range/Units 15:46 19:58 00:45 WBC (3.8-10.6) k/uL RBC (3.80-5.40) m/uL Hgb (11.4-16.0) gm/dL Hct (34.0-46.0) % Neutrophils # (Manual) (1.3-7.7) k/uL Lymphocytes # (Manual) (1.0-4.8) k/uL Monocytes # (Manual) (0-1.0) k/uL Metamyelocytes # (Man) (0) k/uL ABG pH (7.35-7.45) Sodium (137-145) mmol/L Carbon Dioxide (22-30) mmol/L BUN (7-17) mg/dL Creatinine (0.52-1.04) mg/dL Glucose (74-99) mg/dL POC Glucose (mg/dL) 126 H 118 H 117 H (75-99) mg/dL Calcium (8.4-10.2) mg/dL AST (14-36) U/L ALT (4-34) U/L Total Protein (6.3-8.2) g/dL Albumin (3.5-5.0) g/dL 05/07/20 05/07/20 05/07/20 Range/Units 03:44 03:44 03:52 WBC 31.1 H (3.8-10.6) k/uL RBC 3.53 L (3.80-5.40) m/uL Hgb 11.1 L (11.4-16.0) gm/dL Hct 33.0 L (34.0-46.0) % Neutrophils # (Manual) 29.50 H (1.3-7.7) k/uL Lymphocytes # (Manual) 0.31 L (1.0-4.8) k/uL Monocytes # (Manual) 1.24 H (0-1.0) k/uL Metamyelocytes # (Man) 0.31 H (0) k/uL ABG pH (7.35-7.45) Sodium 133 L (137-145) mmol/L Carbon Dioxide 21 L (22-30) mmol/L BUN 60 H (7-17) mg/dL Creatinine 3.44 H (0.52-1.04) mg/dL Glucose 119 H (74-99) mg/dL POC Glucose (mg/dL) 134 H (75-99) mg/dL Calcium 7.8 L (8.4-10.2) mg/dL AST 37 H (14-36) U/L ALT 76 H (4-34) U/L Total Protein 4.7 L (6.3-8.2) g/dL Albumin 2.3 L (3.5-5.0) g/dL 05/07/20 05/07/20 05/07/20 Range/Units 05:14 07:58 11:17 WBC (3.8-10.6) k/uL RBC (3.80-5.40) m/uL Hgb (11.4-16.0) gm/dL Hct (34.0-46.0) % Neutrophils # (Manual) (1.3-7.7) k/uL Lymphocytes # (Manual) (1.0-4.8) k/uL Monocytes # (Manual) (0-1.0) k/uL Metamyelocytes # (Man) (0) k/uL ABG pH 7.30 L (7.35-7.45) Sodium (137-145) mmol/L Carbon Dioxide (22-30) mmol/L BUN (7-17) mg/dL Creatinine (0.52-1.04) mg/dL Glucose (74-99) mg/dL POC Glucose (mg/dL) 129 H 137 H (75-99) mg/dL Calcium (8.4-10.2) mg/dL AST (14-36) U/L ALT (4-34) U/L Total Protein (6.3-8.2) g/dL Albumin (3.5-5.0) g/dL Microbiology - Last 24 Hours (Table) 05/04/20 18:49 Blood Culture - Preliminary Blood No Growth after 24 hours 04/30/20 12:20 Blood Culture - Final Blood No Growth after 144 hours 05/03/20 11:55 Blood Culture - Preliminary Blood No Growth after 72 hours 05/03/20 10:00 Blood Culture Gram Stain - Final Blood Blood Culture - Final Staphylococcus epidermidis Assessment and Plan Assessment: Impression: Acute hypoxic respiratory failure secondary to covid 19 pneumonitis. Requiring intubation and mechanical ventilation on 04/24/2020, Status post tracheostomy and PEG tube placement on 05/05/2020. Obesity with body index of 35. Elevated d-dimer but negative for pulmonary embolism. Paroxysmal atrial fibrillation with RVR, Acute kidney injury from Covid 19 infection requiring hemodialysis. Elevated liver enzymes secondary to viral pneumonia. Elevated inflammatory markers continue to viral pneumonia. Gram-positive bacteremia, addressed by infectious disease on the case. Could be catheter related sepsis. Malpositioning of tracheostomy requiring readjustment using the bronchoscope. On 05/07/2020 Recommendation: Continue ventilatory support Restart enteral feeding via PEG tube. Continue to monitor in the ICU. Continue mechanical ventilation, GI prophylaxis, nutritional/enteral feeding. Follow-up on the blood cultures and the cultures drawn from the PICC line and from the dialysis cath. Continue the present cocktail for covid 19 pneumonitis. Finished her full course of remdesivir, and to units of convalescent plasma. Continue Solu-Medrol, presently on 60 mg IV push every 6 hours. and continue, vitamin C, vitamin D, and zinc. Continue Lovenox. May consider increasing the dose since the patient is having atrial fibrillation and RVR. Remains critically ill, Weaning from sedation for assessment of mental status yesterday failed, patient developed atrial fibrillation with RVR, she also developed hypotension requiring norepinephrine, and she is now on norepinephrine and amiodarone drip. Critical care time is 32 minutes. Not including time spent on bronchoscopy. Time with Patient: Greater than 30
--- NOTE | 2020-05-07 13:23 | OP ---
OPERATIVE REPORT OPERATIVE REPORT: Bronchoscopy and positioning of the tracheostomy tube in the proper position. ANESTHESIA USED: The patient was already on propofol and fentanyl, and she was given 10 mg of Nimbex x1. PREOPERATIVE DIAGNOSIS: Malpositioning of the tracheostomy with significant air leak and loss of volume. POSTOPERATIVE DIAGNOSIS: Malpositioning of the tracheostomy with significant air leak and loss of volume. PROCEDURE: Patient was placed in a supine position, she was already being connected to mechanical ventilation, and after adequate sedation and after Nimbex was given, we inserted the bronchoscopy through the adapter down the tracheostomy tube, and all the way down. Clearly, the tracheostomy was way up high in the trachea, and using the bronchoscope, the tracheostomy was advanced down to about 2.5 cm above the antwon and positioned with direct visualization above the antwon. The cuff was reinflated on the tracheostomy tube, and the tracheostomy was secured to the collar. Brief examination of the right side showed no evidence of any endotracheal secretions or tumors. Brief evaluation of the left side was basically the same. No evidence of significant purulent secretions. The procedure was well tolerated, no evidence of any immediate complications. MMODL / IJN: [id number] /
--- NOTE | 2020-05-07 14:40 | P.PN ---
Subjective Progress Note Date: 05/07/20 Ms. Mccoy is a 69-year-old female with a past medical history of hypertension and thyroid disorder admitted to the hospital for acute hypoxic respiratory failure secondary to COVID 19 pneumonia. Patient has extensive bilateral interstitial pneumonia. She is on a low and pulmonary Dr. Mathews is following the patient. Patient received a convalescent plasma, is also on Remdesivir. On 04/17/2020- This morning patient was evaluated in the ICU. Patient is comfortably sitting in a chair states that her breathing is improving gradually. She denies having any chest pain or palpitations. No cough or hemoptysis. She denies having any swelling or for lower extremities. No abdominal pain nausea vomiting or diarrhea. She denies having any dysuria or hematuria, she has a Bryan's catheter in place. On reviewing her vitals temperature 98.1 heart rate 75 is 5817, blood pressure 1:30 bradycardia. Saturating at 96% on a Aervo -60%. On 04/18/2020 - patient was seen and examined in the ICU. Patient is sitting in a chair by the bedside, states that her breathing has worsened compared to yesterday. Patient is on high flow Airvo, saturating in the low 90s. She denies having any chest pain or palpitations. She complains of cough that is nonproductive. Patient had a chest x-ray done showing stable bilateral air space disease. As the patient was having few episodes of tachycardia, she was started on Lopressor this morning. Patient's inflammatory markers are noted to be high. On reviewing her vitals saturating at 90% on high flow Airvo, heart rate 70s to 80s, respiratory rate 20-25, blood pressure 106-67. In reviewing her labs white count of 29.3, hemoglobin 16.8, platelets 369. D-dimer 6.99, LDH 2969, CRP 63.9. On 04/19/2020 - patient is seen and examined in the ICU. She is currently on BiPAP, as her respiratory status has worsened compared to yesterday. Patient denies having any chest pain or palpitations. No abdominal pain nausea vomiting or diarrhea. No dysuria or hematuria. She is on BiPAP 14/6 and 100% FiO2. On reviewing her vitals temperature is 99.2, respiratory rate is 25, heart rate 70, blood pressure 10 9 x 71. Reviewing the labs white count of 27.3, hemoglobin 17.4, platelets 314. Sodium 133, potassium 4.4, chloride 90, bicarbonate 35, BUN 31, creatinine 0.72. Ferritin 3195, CRP 217 and LDH 2747. 04/20/2020 This is a pleasant 69 years old female with multiple medical problems was admitted for bilateral Covid pneumonia, she is currently on aervo at 90%/60 L of oxygen, saturating 89%. Rest of Vitas looks stable Also she is on BiPAP All the night. She is able to eat and drink, no pressors She is on normal saline at 75 mL/h with adequate urine output Patient is currently ON Medrol 40 mg twice daily, Lovenox 60 mg twice Mary and vitamin C and zinc. She finished her remdisvir and convelecent plasma. 04/21/2020 Patient remains in the ICU bed and respiratory support for her bilateral Covid pneumonia. She still dyspneic especially with exertion and she still needs BiPAP during the day shift. Also she had a fever today of 102.2. Patient is empirically on Zosyn/calcitonin check today showing normal level at 0.07. She has leukocytosis of 29K. I agree with Zosyn and I recommended to continue with that for now. Also patient is on steroids 60 mg every 6 hours. As there is no more significant progress progress in her clinical picture Glucose is 123 and inflammatory markers still elevated 04/22/2020 this is a pleasant 69 yo F who is admitted to the ICU for covid pneumonia, she is still on BiPAP dependant , TNP is started for her nutrition for this reasone. her oxygen saturation is on low 90s% cxr: diffuse interstitial opacities and worsening airspace disease in the left lower lung. consider interstitial edema wbc is sligtly less 26K, she is currently continued on zosyn , and solumedrol 60 mg. and normal saline increased to 150 ml/hr. and lovenox 60 mg BID she finised her Remdisvir and convelescent Plasma. 04/23/2020 Patient looks very tired, she came Off the BiPAP today morning and she was placed back on airvo at 60 L she is back and forth between BiPAP and airvo, however she probably will need BiPAP at night Inflammatory markers and d-dimer increased, ferritin 3100 up to 3700 and d-dimer 3 up to 5 Chest x-ray showing bilateral middle and lower infiltrates with slight improvement Treatments with antibiotics Zosyn, fluconazole was added today. Also she is also on Solu-Medrol 60 mg, normal sling was decreased to 50 mL per hour, Lovenox 60 mg twice daily, TPN and she is on vitamin C and zinc 04/24/2020 Patient today her clinical condition deteriorated, she was hypoxic this morning with oxygen saturation in the 70s percent and she was tachycardic with heart rate 140-150, patient ended up being intubated in the morning and she was in an you onset of A. fib and started on Cardizem drip on 15 mg however her heart rate was still elevated, cardiology team were consulted, blood pressure was on the low normal side. Amiodarone drip was started. Cardiology team and Cardizem drip was shut to 15 mg/h. Also insulin drip for hyperglycemia with sugar more than 300. 04/25/2020 Patient was intubated yesterday for deteriorated respiratory status, ABG showing elevated pCO2 on 496 with acidosis. 7.0 and 7.1. Oxygen saturation is acceptable at 107. She remains on mechanical ventilation managed by pulmonary/critical care team, currently her bruits and draped with before meals at 40 to help with her acidosis. Her creatinine worsened today 0.5 up to 1.3, with potassium elevated as well as 5.5 nephrology team were consulted who ordered insulin/dextrose 50%, sodium bicarb 1 and Lasix 80 mg 1. [employer] recommended hemodialysis and no improvement in 24 hours Chest x-ray showing pneumonia and edema which is stable from yesterday. Sugar improved and we could switch her insulin drip to insulin sliding scale A. fib is improved and converted to sinus rhythm with amiodarone which is swi tched to [facility] per [employer], She Is Already on Anticoagulation 04/26/20 Patient remains in the ICU sedated and intubated with pulmonary/ critical care team following the case closely. Showing trending down leukocytosis to 20 6.1K. Creatinine up to 2.8, Patient is developing anuria with acute kidney injury, nephrology evaluation is appreciated and hemodialysis is initiated. Chest x-ray showing interstitial infiltrate especially in the mid to lower lungs Echocardiogram showed ejection fraction of 55-60%, and atrial fibrillation improved yesterday with amiodarone She remains on Solu-Medrol, Zosyn and fluconazole, normal sinus 50 and vitamin C and zinc Lovenox dose was adjusted to renal function down to 50 mg daily Prognosis remains guarded 04/27/2020 Patient with bilateral: With pneumonia that her purse and eventually got intubated, pulmonary/critical care team and several consultants are following the case, vent management as per pulmonary team. She has leukocytosis of 13.8 K. Creatinine today is 3.37 Patient undergoing hemodialysis for the last 2-3 days for acute kidney injury and [facility] Patient A. fib heart rate becomes uncontrolled today and her amiodarone to switch to a drip. Other medication including Solu-Medrol 60 mg, vitamin C and zinc, Zosyn and fluconazole, she is on normal saline at 50 mL/h and Lovenox dose dropped to 30 mg daily 04/28/2020 Patient remains intubated and sedated in the ICU, followed closely by critical care team. Vital showing tachycardia and tachypnea. WBC is 30 3.5K. Creatinine 3.8, sodium 134. Sugar is controlled. Inflammatory markers are elevated. She is undergoing hemodialysis today Chest x-ray from today showing no change from last one yesterday Medication-hernandez he remains on Solu-Medrol, Zosyn, 30 mg of Lovenox daily which is renal dose and amiodarone drip. Normal saline at 50 mm was discontinued today 04/29/2020 This is a pleasant 69 years old female with bilateral, with pneumonia. Patient remains in the ICU sedated and intubated with pulmonary/critical care team following the case closely. Normal sedation holiday for the patient currently She already finished her treatment with remdesivir and convalescent plasma, and currently she is on vitamin C and zinc. She was on steroids in the form of high dose of Solu-Medrol 60 mg and Zosyn and fluconazole for possible bacteria and fungal infection associated with viral infection. Patient course was complicated by renal failure and new or so she underwent hemodialysis, last HD was yesterday, she is kept on renal dose of Lovenox 30 mg daily. Other compli cation is atrial fibrillation with RVR which is currently controlled with oral amiodarone and low-dose of Cardizem drip. Patient condition remains critical and she kept on mechanical ventilation with close monitoring Procalcitonin is unchanged yesterday at 0.39 compared to one week ago at 0.39. We'll order another test tomorrow 04/30/2020 Patient is seen and evaluated and follow-up continues to remain closely monitored in the ICU. Patient continues to be on a mechanical ventilator intubated and sedated currently off paralytics. Patient being followed by multiple medical consultations including cardiology, pulmonary, nephrology. Patient currently receiving hemodialysis for ultrafiltration and became extremely hypotensive maxing out on pressors and dialysis was aborted. Patient prognosis is extremely guarded and poor at this time. Patient continues to be on IV steroids along with Lovenox vitamin C and D and zinc supplements and will continue. Patient is also maintained on IV antibiotics in the form of Zosyn and vancomycin being added. Patient currently off of IV amiodarone and IV Cardizem and transitioned to oral amiodarone and will continue at this time. Chest x-ray continues to show interstitial pneumonia with bilateral basilar infiltrates and tiny effusions. She also had an abdominal x-ray showing nonspecific abdomen with no diagnostic evidence of obstruction. White blood count today is 27.9, hemoglobin is stable at 12.7, d-dimer is elevated although slowly trending down at 3.04, current sodium is 129, potassium is 5.9, BUN is 103 with a creatinine of 4.97. Attempts at ultrafiltration today his potassium is elevated. Nephrology is following closely. 05/01/20 Patient remains in the ICU intubated on mechanical ventilation with pulmonary/critical care team following closely. Patient today underwent sedation holiday and into hours she started becoming agitated and developed atrial fibrillation's with RVR, she has to be placed back on amiodarone drip and Cardizem drip 10 mg per hour before it was converted to sinus rhythm again Currently she is tachypneic with a breathing rate around 32. She is saturating 91% on FiO2 of 60% Leukocytosis 27.9 yesterday and 24.6K today. D-dimer stable at 3.7 so she kept on the same dose of Lovenox Inflammatory markers including LDH, protein and C-reactive protein went up slightly today. Patient remains anuric and undergoing hemodialysis She remains on Zosyn and fluconazole, she got 2 doses of IV vancomycin yesterday and today. Also she is on zinc and vitamin C, Lovenox 30 mg daily. Diflucan was stopped 05/02/2020 Patient remains intubated and sedated in the ICU was followed closely by pulmonary/critical care team and for vent management. Patient also with A. fib on several occasions needing Cardizem and amiodarone, cardiology following the patient Patient is still undergoing hemodialysis for anuria and acute kidney injury, nephrology team on the case x-ray showed improvement bibasilar infiltrates She is on some Medrol 60 mg daily, antibiotics were stopped 2 days ago. She is also on Lovenox 30 mg daily, vitamin C and zinc 05/03/2020 Patient is seen this morning currently remains in the ICU receiving hemodialysis today. Multiple medical consultations following. Patient remains on mechanical vent and is intubated and sedated and will continue at this time. D-dimer is elevated at 5.50, sodium is 132, potassium is 5.9, BUN is 108, current creatinine is 4.87. White blood count is 31.3 and hemoglobin is 11.3. Patient blood pressure is elevated as well and has been continuing with daily dialysis. Chest x-rays today show interstitial infiltrates or edema in the mid and lower lungs continue with slight improvement on the left. Patient remains on IV antibiotics in the form of Zosyn and will continue at this time. Infectious disease is following as well. 05/04/2020 Patient is seen in follow-up currently remains in the ICU. Surgical consult was placed for trach and PEG tube placement as patient continues to be on tube feedings and continues to be on a mechanical vent. Dimer elevated at 7.38. Nephrology also following as patient has been receiving hemodialysis and current creatinine today is 4.23 with a BUN of 98 and potassium is 5.9. Patient will be made nothing by mouth and tube feedings held for surgery tomorrow. Family continues to wish for full CODE STATUS. Sputum cultures preliminary showing Brittney albicans and urine showing gram-negative bacilli with Brittney albicans. Infectious disease is following. Patient is maintained on IV antibiotics in the form of Zosyn and daptomycin being added. Will await culture finalization. 05/05/2020 Patient continues to be in the ICU currently on a mechanical vent awaiting PEG tube and trach placement today with surgery. Multiple medical consultations following including nephrology. Potassium was 5.5 this morning and will correct prior to surgery patient will be receiving hemodialysis this afternoon. Infla mmatory markers trending down. Patient is maintained on IV antibiotics in the form of daptomycin along with Zosyn and will continue. Tube feedings on hold this morning for surgery. 05/06/2020 Patient is status post tracheostomy and PEG tube placement and will initiate tube feeds this afternoon per surgery. Patient is currently receiving hemodialysis and nephrology following closely. Patient to continue IV daptomycin and Zosyn. Infectious disease is following. Urine cultures finalized showing E. coli and Brittney. Patient's blood pressures have been on the lower end and elevated heart rate and cardiology following closely. Patient currently on levophed and oral amiodarone. Prognosis remains extremely poor and guarded. 05/07/2020 Patient is seen and evaluated this morning currently being closely monitored in the ICU remains on the mechanical vent via tracheostomy along with PEG tube feedings. Patient also continues to be on levophed and once again on amiodarone drip as patient developed atrial fibrillation with RVR yesterday. Multiple medical consultations following. Patient was seen and evaluated by anesthesia as patient continued to have an air leak that was present around the tracheostomy and patient underwent bronchoscope with Dr. Motta today. Patient continues to have generalized edema. Patient is maintained on hemodialysis although unable to tolerate today. Patient has resumed tube feedings and tolerating thus far. Review of systems: Unable to obtain as patient's currently intubated and sedated Active Medications Acetaminophen (Acetaminophen Tab 325 Mg Tab) 650 mg PO Q6HR PRN PRN Reason: Mild Pain or Fever > 100.5 Last Admin: 04/21/20 04:34 Dose: 650 mg Documented by: Albuterol Sulfate (Albuterol Hfa Inhaler) 2 puff INHALATION RT-QID [facility] Last Admin: 05/07/20 11:43 Dose: 2 puff Documented by: Ascorbic Acid (Ascorbic Acid 500 Mg Tab) 250 mg PO DAILY [facility] Last Admin: 05/07/20 08:16 Dose: 250 mg Documented by: Chlorhexidine Gluconate (Chlorhexidine Gluconate 15 Ml Cup) 15 ml MUCOUS MEM BID [facility] Last Admin: 05/07/20 08:16 Dose: 15 ml Documented by: Cholecalciferol (Cholecalciferol 25 Mcg (1000 Iu) Tablet) 25 mcg PO DAILY [facility] Last Admin: 05/07/20 08:16 Dose: 25 mcg Documented by: Enoxaparin Sodium (Enoxaparin 30 Mg/0.3 Ml Syringe) 30 mg SQ DAILY [facility] Last Admin: 05/07/20 08:16 Dose: 30 mg Documented by: Famotidine (Famotidine 20 Mg Tab) 20 mg OG-TUBE Q24HR [facility] Last Admin: 05/07/20 08:16 Dose: 20 mg Documented by: Folic Acid (Folic Acid 1 Mg Tab) 1 mg PO DAILY@1200 [facility] Last Admin: 05/07/20 11:48 Dose: 1 mg Documented by: Fentanyl Citrate 1,000 mcg/ (Sodium Chloride) 100 mls @ 0 mls/hr IV .Q0M [facility]; Protocol Last Admin: 05/07/20 10:48 Dose: 1.5 mcg/kg/hr, 17.31 mls/hr Documented by: Piperacillin Sod/Tazobactam (Sod 3.375 gm/ Sodium Chloride) 100 mls @ 25 mls/hr IVPB Q12HR [facility] Last Admin: 05/07/20 08:16 Dose: 25 mls/hr Documented by: Daptomycin 750 mg/ Sodium (Chloride) 50 mls @ 100 mls/hr IVPB Q48H [facility]; Protocol Last Admin: 05/06/20 12:12 Dose: 100 mls/hr Documented by: Norepinephrine Bitartrate 32 (mg/ Sodium Chloride) 250 mls @ 2.848 mls/hr IV .Q 24H [facility]; Protocol Last Titration: 05/07/20 12:00 Dose: 0 mcg/kg/min, 0 mls/hr Documented by: Amiodarone HCl 450 mg/ (Dextrose/Water) 250 mls @ 16.667 mls/hr IV .Q15H [facility]; Protocol Stop: 05/08/20 07:59 Propofol 500 mg/ IV Solution 50 mls @ 0 mls/hr IV .Q0M [facility]; Protocol Last Admin: 05/07/20 12:42 Dose: 40 mcg/kg/min, 29.232 mls/hr Documented by: Insulin Aspart (Insulin Aspart (Novolog) 100 Unit/Ml Vial) 0 unit SQ Q4H [facility]; Protocol Last Admin: 05/07/20 11:49 Dose: 1 unit Documented by: Levothyroxine Sodium (Levothyroxine 50 Mcg Tab) 50 mcg PO DAILY@0630 [facility] Last Admin: 05/07/20 06:18 Dose: 50 mcg Documented by: Methylprednisolone Sodium Succinate (Methylprednisolone Sod Succi 125 Mg/2 Ml Vial) 60 mg IV Q6HR [facility] Last Admin: 05/07/20 11:49 Dose: 60 mg Documented by: Metoprolol Tartrate (Metoprolol Tartrate 25 Mg Tab) 25 mg PO BID@0600,1800 [facility] Last Admin: 05/07/20 06:18 Dose: 25 mg Documented by: Miscellaneous Information (Potassium Replacement Protocol 1 Each Misc) 1 each MISCELLANE DAILY PRN; Protocol PRN Reason: Per Protocol Morphine Sulfate (Morphine Sulfate 2 Mg/Ml Syringe) 2 mg IVP Q6H PRN PRN Reason: Pain/Discomfort Last Admin: 05/05/20 01:29 Dose: 2 mg Documented by: Multivitamins (Multivitamins, Thera 1 Each Tab) 1 each PO DAILY@1200 [facility] Last Admin: 05/07/20 11:48 Dose: 1 each Documented by: Naloxone HCl (Naloxone 0.4 Mg/Ml 1 Ml Vial) 0.2 mg IV Q2M PRN PRN Reason: Opioid Reversal Ondansetron HCl (Ondansetron 4 Mg/2 Ml Vial) 4 mg IVP Q6HR PRN PRN Reason: Nausea And Vomiting Thiamine HCl (Thiamine 100 Mg Tab) 100 mg PO DAILY@1200 [facility] Last Admin: 05/07/20 11:49 Dose: 100 mg Documented by: Zinc Sulfate (Zinc Sulfate 220 Mg Cap) 220 mg PO DAILY [facility] Last Admin: 05/07/20 08:16 Dose: 220 mg Documented by: Objective - Vital Signs Vital signs: Vital Signs Temp 97.7 F 05/07/20 04:00 Pulse 131 H 05/07/20 07:00 Resp 32 H 05/07/20 07:00 BP 94/54 05/07/20 07:00 Pulse Ox 93 L 05/07/20 07:00 Intake & Output 05/06/20 05/07/20 05/07/20 18:59 06:59 18:59 Intake Total 8463.651 1518.792 170 Output Total 1057 0 0 Balance 35.672 1300.792 170 Weight 121.8 kg Intake: IV 276 376 23 0.9% KVO 240 240 20 Piperacillin-Tazobactam 3 100 .375 gm In Sodium Chloride 0.9% 100 ml @ 25 mls/hr IVPB Q12HR [facility] Rx #:[id number] Pressure Bag 36 36 3 Intake, IV Titration 637.672 580.792 100 Amount DAPTOmycin 750 mg In 100 Sodium Chloride 0.9% 50 ml @ 100 mls/hr IVPB Q48H [facility] Rx#:[id number] Dextrose 5% in Water 100 100 ml @ 103 mls/hr IV .Q1H [facility] with Amiodarone 150 mg Rx#:[id number] Norepinephrine 32 mg In 105.699 Sodium Chloride 0.9% 218 ml @ 0.05 MCG/KG/MIN 2. 848 mls/hr IV .Q24H [facility] Rx#:[id number] fentaNYL (PF) 1,000 mcg 164.226 187.127 In Sodium Chloride 0.9% 80 ml @ Per Protocol IV . Q0M [facility] Rx#:[id number] propofoL 1,000 mg In 273.446 287.966 100 Empty Bag 1 bag @ Titrate IV .Q0M [facility] Rx#: [id number] Tube Feeding 119 204 17 Other 60 140 30 Output: Urine 57 0 0 Hemodialysis 1000 Other: Voiding Method Indwelling Catheter Indwelling Catheter ABP, PAP, CO, CI - Last Documented Arterial Blood Pressure 103/52 - Exam GENERAL: The patient is intubated and sedated HEENT: Pupils are round and equally reacting to light. EOMI. No scleral icterus. No conjunctival pallor. Normocephalic, atraumatic. No pharyngeal erythema. No thyromegaly. Tracheostomy noted CARDIOVASCULAR: S1 and S2 present. No murmurs, rubs, or gallops. PULMONARY: Bilateral crackles noted on exam ABDOMEN: Soft, nontender, nondistended, normoactive bowel sounds. No palpable organomegaly. PEG tube noted MUSCULOSKELETAL: No joint swelling or deformity. EXTREMITIES: No cyanosis, clubbing, or pedal edema. Bilateral upper and lower extremity edema noted with 2+ pitting in the hands and lower extremities NEUROLOGICAL: Unable to assess, She is currently sedated SKIN: No rashes. no petechiae. - Labs CBC & Chem 7: 05/07/20 03:44 05/07/20 03:44 Labs: Abnormal Lab Results - Last 24 Hours (Table) 05/06/20 05/06/20 05/06/20 Range/Units 12:02 15:46 19:58 WBC (3.8-10.6) k/uL RBC (3.80-5.40) m/uL Hgb (11.4-16.0) gm/dL Hct (34.0-46.0) % Neutrophils # (Manual) (1.3-7.7) k/uL Lymphocytes # (Manual) (1.0-4.8) k/uL Monocytes # (Manual) (0-1.0) k/uL Metamyelocytes # (Man) (0) k/uL ABG pH (7.35-7.45) Sodium (137-145) mmol/L Carbon Dioxide (22-30) mmol/L BUN (7-17) mg/dL Creatinine (0.52-1.04) mg/dL Glucose (74-99) mg/dL POC Glucose (mg/dL) 101 H 126 H 118 H (75-99) mg/dL Calcium (8.4-10.2) mg/dL AST (14-36) U/L ALT (4-34) U/L Total Protein (6.3-8.2) g/dL Albumin (3.5-5.0) g/dL 05/07/20 05/07/20 05/07/20 Range/Units 00:45 03:44 03:44 WBC 31.1 H (3.8-10.6) k/uL RBC 3.53 L (3.80-5.40) m/uL Hgb 11.1 L (11.4-16.0) gm/dL Hct 33.0 L (34.0-46.0) % Neutrophils # (Manual) 29.50 H (1.3-7.7) k/uL Lymphocytes # (Manual) 0.31 L (1.0-4.8) k/uL Monocytes # (Manual) 1.24 H (0-1.0) k/uL Metamyelocytes # (Man) 0.31 H (0) k/uL ABG pH (7.35-7.45) Sodium 133 L (137-145) mmol/L Carbon Dioxide 21 L (22-30) mmol/L BUN 60 H (7-17) mg/dL Creatinine 3.44 H (0.52-1.04) mg/dL Glucose 119 H (74-99) mg/dL POC Glucose (mg/dL) 117 H (75-99) mg/dL Calcium 7.8 L (8.4-10.2) mg/dL AST 37 H (14-36) U/L ALT 76 H (4-34) U/L Total Protein 4.7 L (6.3-8.2) g/dL Albumin 2.3 L (3.5-5.0) g/dL 05/07/20 05/07/20 05/07/20 Range/Units 03:52 05:14 07:58 WBC (3.8-10.6) k/uL RBC (3.80-5.40) m/uL Hgb (11.4-16.0) gm/dL Hct (34.0-46.0) % Neutrophils # (Manual) (1.3-7.7) k/uL Lymphocytes # (Manual) (1.0-4.8) k/uL Monocytes # (Manual) (0-1.0) k/uL Metamyelocytes # (Man) (0) k/uL ABG pH 7.30 L (7.35-7.45) Sodium (137-145) mmol/L Carbon Dioxide (22-30) mmol/L BUN (7-17) mg/dL Creatinine (0.52-1.04) mg/dL Glucose (74-99) mg/dL POC Glucose (mg/dL) 134 H 129 H (75-99) mg/dL Calcium (8.4-10.2) mg/dL AST (14-36) U/L ALT (4-34) U/L Total Protein (6.3-8.2) g/dL Albumin (3.5-5.0) g/dL Microbiology - Last 24 Hours (Table) 05/04/20 18:49 Blood Culture - Preliminary Blood No Growth after 24 hours 04/30/20 12:20 Blood Culture - Final Blood No Growth after 144 hours 05/03/20 11:55 Blood Culture - Preliminary Blood No Growth after 72 hours 05/03/20 10:00 Blood Culture Gram Stain - Final Blood Blood Culture - Final Staphylococcus epidermidis Assessment and Plan Assessment: COVID 19 pneumonia Status post tracheostomy and PEG tube placement, tube feedings have resumed. Patient underwent bronchoscope pulmonary she had continued air leaks noted in the tracheostomy Acute hypoxic respiratory failure-status post intubation and mechanical ventilation New onset A. fib with RVR, placed back on amiodarone drip, cardiology following Acute kidney injury with anuria status post hemodialysis, nephrology following Increased d-dimer without evidence of PE Hyponatremia Leukocytosis, remains on Zosyn and daptomycin , infectious disease following Elevated inflammatory markers Hypertension, currently hypotensive and placed on levophed Hypothyroidism History of bilateral posterior tibial tendon repair Obesity with BMI of 40.2 DVT prophylaxis: Subcutaneous Lovenox GI prophylaxis: Pepcid Full code Plan: Continue with current medications. Placed on amiodarone drip and continues on levophed for A. fib RVR and hypotension. Infectious disease along with pulmonary and cardiology is following. She underwent bronchoscope with Dr. Motta today for continued air leak noted in the tracheostomy. Tube feedings have been resumed via PEG tube and tolerating thus far. Patient continues to be on mechanical vent and is sedated at this time. Nephrology also following as patient has been receiving hemodialysis. Unable to tolerate dialysis today and will likely receive hemodialysis tomorrow. Prognosis remains extremely poor and guarded.
[2020-05-07] MEDS: AMIODARONE 450 MG in DEXTROSE 5% IN WATER 250 ML IV SCH ×2 (14:58)
[2020-05-07] MEDS: NOREPINEPHRINE 32 MG in SODIUM CHLORIDE 0.9% 218 ML IV SCH (15:17)
[2020-05-07 16:04] LABS: Glucose,Whole Blood 142 mg/dL (75-99)
--- NOTE | 2020-05-07 17:51 | PN ---
PROGRESS NOTE The patient is seen for followup for acute kidney injury secondary to ATN, mostly ischemic ATN, and from underlying COVID infection. The patient is currently hemodialysis-dependent. She was receiving daily dialysis for volume overload and progressive renal failure. However, yesterday the patient developed atrial fibrillation with RVR while on dialysis. We could not get much fluid off, and patient was taken off. Today she was not dialyzed. Currently patient remains on the vent, fairly stable, maintained on amiodarone drip for atrial fibrillation. Heart rate remains on the higher side. The patient needed a small dose of Levophed. Currently she is off of Levophed. No significant urine output. FiO2 is at 50%. PHYSICAL EXAMINATION: On examination today, this morning blood pressure was 94/72, heart rate of 120 per minute. Patient is afebrile. Examination shows much improved edema, bilateral lower extremities. Abdomen is soft, nontender. Patient is tolerating tube feeds. She remains on the vent. LABS: Labs show sodium 133, potassium 4.7, chloride 102. CO2 is 21, BUN 60, serum creatinine 3.4. ASSESSMENT: 1. Acute kidney injury, acute tubular necrosis, currently oliguric and hemodialysis- dependent. We will arrange for hemodialysis tomorrow with no significant ultrafiltration. We also need to change the temporary dialysis catheter to an IJ PermCath. 2. COVID-19 pneumonia and sepsis with vent-dependent respiratory failure. 3. Acute hypoxic respiratory failure, currently maintained on mechanical ventilation, status post trach and PEG. 4. Hyperkalemia associated with progressive renal failure and hypercatabolic state, improved post dialysis. 5. Atrial fibrillation with rapid ventricular response, maintained on amiodarone drip, being followed by Cardiology. PLAN: Hemodialysis in a.m. with no significant ultrafiltration. MMODL / IJN: [id number] /
--- NOTE | 2020-05-07 19:42 | PN ---
PROGRESS NOTE DATE OF SERVICE: 05/07/2020 REASON FOR FOLLOWUP: Bacteremia. INTERVAL HISTORY: The patient is currently afebrile. The patient is hemodynamically stable. The patient's FiO2 is currently down to 50%. No significant purulent secretions through the ET or worsening diarrhea reported by the nursing staff. PHYSICAL EXAMINATION: Blood pressure 138/50 with a pulse of 55, temperature 98. She is 95% on 50% FiO2. General description is an elderly female intubated on the vent. RESPIRATORY SYSTEM: Unlabored breathing with decreased breath sounds at the base. No wheeze. HEART: S1, S2. Regular rate and rhythm. ABDOMEN: Soft. No tenderness. LABS: Hemoglobin is 11.1, white count 31.1, BUN of 60, creatinine 3.44. Blood culture repeat so far negative. DIAGNOSTIC IMPRESSION AND PLAN: 1. Patient with positive blood culture with Staphylococcus epidermidis in this patient who did have a right dialysis catheter as well as PICC line. Repeat blood culture negative so far. Continue treatment with daptomycin. 2. Question of pneumonia, covered with Zosyn. 3. Elevated white count, more likely steroid effect, and it will be monitored closely. MMODL / IJN: [id number] /
[2020-05-07 22:01] LABS: Glucose,Whole Blood 117 mg/dL (75-99)
[2020-05-08] LABS: Glucose,Whole Blood 116 mg/dL (75-99)
[2020-05-08] MEDS: INSULIN ASPART (NovoLOG) 100 UNIT/ML VIAL SQ SCH ×6 (00:51→21:06)
[2020-05-08] MEDS: methylPREDNISolone SOD SUCCI 125 MG/2 ML VIAL IV SCH ×4 (00:52→17:15)
[2020-05-08 04:08] LABS: Allen Test Performed? Yes
[2020-05-08 04:09] LABS: ABG HCO3 20 mmol/L (21-25); ABG PCO2 41 mmHg (35-45); ABG PH 7.29 (7.35-7.45); ABG PO2 87 mmHg (83-108); ABG TCO2 21 mmol/L (19-24)
[2020-05-08] MEDS: AMIODARONE 450 MG in DEXTROSE 5% IN WATER 250 ML IV SCH ×2 (06:37)
--- NOTE | 2020-05-08 07:14 | XR ---
EXAMINATION TYPE: XR chest 1V portable DATE OF EXAM: 05/08/2020 COMPARISON: Chest x-ray 05/07/2020 HISTORY: ICU management, tracheostomy tube, abnormal chest x-ray TECHNIQUE: Single frontal view of the chest is obtained. FINDINGS: There is a left-sided PICC line present, distal tip overlying the left innominate vein. No evident pneumothorax. Interstitium is prominent as on prior exam. Cardiac mediastinal silhouette is unchanged. Tracheostomy tube is overlying the tracheal air column. There are overlying leads, artifac ts. IMPRESSION: Findings are similar to prior exam. Correlate for edema, pneumonia
[2020-05-08] MEDS: LEVOTHYROXINE 50 MCG TAB PO SCH (07:26)
[2020-05-08] MEDS: METOPROLOL TARTRATE 25 MG TAB PO SCH ×2 (07:26→17:15)
[2020-05-08] MEDS: ALBUTEROL HFA INHALER INHALATION SCH ×4 (07:48→19:58)
[2020-05-08 07:52] LABS: Albumin 2.2 g/dL (3.5-5.0); Calcium 7.9 mg/dL (8.4-10.2); Potassium 5.3 mmol/L (3.5-5.1); Total Bilirubin 0.5 mg/dL (0.2-1.3); Total Protein 4.6 g/dL (6.3-8.2)
--- NOTE | 2020-05-08 09:23 | P.PN ---
Subjective Progress Note Date: 05/08/20 Principal diagnosis: Paroxysmal atrial fibrillation This is a 69-year-old female patient who was admitted to the hospital with COVID-19 infection as well as acute hypoxic respiratory failure required intubation and mechanical ventilation. We saw the patient for paroxysmal atrial fibrillation. Currently the patient is in sinus rhythm. Currently she is on amiodarone IV which I'm going to switch to amiodarone by mouth. For some reason the patient is not on any anticoagulation. I would consider increasing the dose of Lovenox on her to be on the diuretic dose in case she is not going to be started on any oral anticoagulation. Objective - Vital Signs Vital signs: Vital Signs Temp 97.9 F 05/07/20 16:00 Pulse 59 L 05/08/20 06:00 Resp 32 H 05/08/20 06:00 BP 104/58 05/08/20 06:00 Pulse Ox 95 05/08/20 06:00 Intake & Output 05/07/20 05/08/20 05/08/20 18:59 06:59 18:59 Intake Total 1228.852 320 362 Output Total 30 15 Balance 1198.852 305 362 Weight 121.8 kg 123.2 kg Intake: IV 276 276 46 0.9% KVO 240 240 40 Pressure Bag 36 36 6 Intake, IV Titration 627.852 Amount Dextrose 5% in Water 100 100 ml @ 618 mls/hr IV .Q10M ONE with Amiodarone 150 mg Rx#:[id number] Norepinephrine 32 mg In 19.082 Sodium Chloride 0.9% 218 ml @ 0.05 MCG/KG/MIN 2. 848 mls/hr IV .Q24H PERRY Rx#:[id number] Piperacillin-Tazobactam 3 100 .375 gm In Sodium Chloride 0.9% 100 ml @ 25 mls/hr IVPB Q12HR PERRY Rx #:[id number] fentaNYL (PF) 1,000 mcg 200 In Sodium Chloride 0.9% 80 ml @ Per Protocol IV . Q0M PERRY Rx#:[id number] propofoL 1,000 mg In 100 Empty Bag 1 bag @ Titrate IV .Q0M PERRY Rx#: [id number] propofoL 500 mg In Empty 108.77 Bag 1 bag @ Titrate IV . Q0M PERRY Rx#:[id number] Tube Feeding 205 44 286 Other 120 30 Output: Urine 30 15 Other: Voiding Method Indwelling Catheter Indwelling Catheter # Voids 130 ABP, PAP, CO, CI - Last Documented Arterial Blood Pressure 155/50 - Labs CBC & Chem 7: 05/07/20 03:44 05/08/20 07:15 Labs: Abnormal Lab Results - Last 24 Hours (Table) 05/07/20 05/07/20 05/07/20 Range/Units 11:17 16:01 22:00 ABG pH (7.35-7.45) ABG HCO3 (21-25) mmol/L Sodium (137-145) mmol/L Potassium (3.5-5.1) mmol/L Carbon Dioxide (22-30) mmol/L BUN (7-17) mg/dL Creatinine (0.52-1.04) mg/dL Glucose (74-99) mg/dL POC Glucose (mg/dL) 137 H 142 H 117 H (75-99) mg/dL Calcium (8.4-10.2) mg/dL ALT (4-34) U/L Total Protein (6.3-8.2) g/dL Albumin (3.5-5.0) g/dL 05/07/20 05/08/20 05/08/20 Range/Units 23:59 04:00 07:15 ABG pH 7.29 L (7.35-7.45) ABG HCO3 20 L (21-25) mmol/L Sodium 131 L (137-145) mmol/L Potassium 5.3 H (3.5-5.1) mmol/L Carbon Dioxide 17 L (22-30) mmol/L BUN 80 H (7-17) mg/dL Creatinine 4.18 H (0.52-1.04) mg/dL Glucose 130 H (74-99) mg/dL POC Glucose (mg/dL) 116 H (75-99) mg/dL Calcium 7.9 L (8.4-10.2) mg/dL ALT 58 H (4-34) U/L Total Protein 4.6 L (6.3-8.2) g/dL Albumin 2.2 L (3.5-5.0) g/dL Microbiology - Last 24 Hours (Table) 05/04/20 18:49 Blood Culture - Preliminary Blood No Growth after 48 hours 05/03/20 11:55 Blood Culture - Preliminary Blood No Growth after 96 hours 05/06/20 11:00 Blood Culture - Preliminary Blood No Growth after 24 hours 05/06/20 11:00 Blood Culture - Preliminary Blood No Growth after 24 hours Assessment and Plan Assessment: Assessment #1 acute hypoxic respiratory failure #2 COVID-19 infection #3 paroxysmal atrial fibrillation #4 multiple comorbid conditions Plan #1 DC amiodarone IV and start the patient on amiodarone by mouth #2 consider increasing the dose of Lovenox if she is not going to be started on any oral anticoagulation #3 follow-up with the patient
--- NOTE | 2020-05-08 09:34 | P.PN ---
Subjective Progress Note Date: 05/08/20 Principal diagnosis: This is a 69-year-old female with: Pneumonia and has hemodialysis dependent ATN. Yesterday dialysis was somewhat unsuccessful as she went into the atrial fibr illation episode with rapid ventricular response and fluid removal was abandoned. Currently her blood pressure is 155/50, heart rate in the 50s and she is afebrile. 24-hour intake is 1540 output is 45 mL She remains on the vent on 50% FiO2 Objective - Vital Signs Vital signs: Vital Signs Temp 97.9 F 05/07/20 16:00 Pulse 59 L 05/08/20 06:00 Resp 32 H 05/08/20 06:00 BP 104/58 05/08/20 06:00 Pulse Ox 95 05/08/20 06:00 Intake & Output 05/07/20 05/08/20 05/08/20 18:59 06:59 18:59 Intake Total 1228.852 320 362 Output Total 30 15 Balance 1198.852 305 362 Weight 121.8 kg 123.2 kg Intake: IV 276 276 46 0.9% KVO 240 240 40 Pressure Bag 36 36 6 Intake, IV Titration 627.852 Amount Dextrose 5% in Water 100 100 ml @ 618 mls/hr IV .Q10M ONE with Amiodarone 150 mg Rx#:[id number] Norepinephrine 32 mg In 19.082 Sodium Chloride 0.9% 218 ml @ 0.05 MCG/KG/MIN 2. 848 mls/hr IV .Q24H PERRY Rx#:[id number] Piperacillin-Tazobactam 3 100 .375 gm In Sodium Chloride 0.9% 100 ml @ 25 mls/hr IVPB Q12HR PERRY Rx #:[id number] fentaNYL (PF) 1,000 mcg 200 In Sodium Chloride 0.9% 80 ml @ Per Protocol IV . Q0M PERRY Rx#:[id number] propofoL 1,000 mg In 100 Empty Bag 1 bag @ Titrate IV .Q0M PERRY Rx#: [id number] propofoL 500 mg In Empty 108.77 Bag 1 bag @ Titrate IV . Q0M PERRY Rx#:[id number] Tube Feeding 205 44 286 Other 120 30 Output: Urine 30 15 Other: Voiding Method Indwelling Catheter Indwelling Catheter # Voids 130 ABP, PAP, CO, CI - Last Documented Arterial Blood Pressure 155/50 Patient was not examined spoke to the nurse - Labs CBC & Chem 7: 05/07/20 03:44 05/08/20 07:15 Labs: Abnormal Lab Results - Last 24 Hours (Table) 05/07/20 05/07/20 05/07/20 Range/Units 11:17 16:01 22:00 ABG pH (7.35-7.45) ABG HCO3 (21-25) mmol/L Sodium (137-145) mmol/L Potassium (3.5-5.1) mmol/L Carbon Dioxide (22-30) mmol/L BUN (7-17) mg/dL Creatinine (0.52-1.04) mg/dL Glucose (74-99) mg/dL POC Glucose (mg/dL) 137 H 142 H 117 H (75-99) mg/dL Calcium (8.4-10.2) mg/dL ALT (4-34) U/L Total Protein (6.3-8.2) g/dL Albumin (3.5-5.0) g/dL 05/07/20 05/08/20 05/08/20 Range/Units 23:59 04:00 07:15 ABG pH 7.29 L (7.35-7.45) ABG HCO3 20 L (21-25) mmol/L Sodium 131 L (137-145) mmol/L Potassium 5.3 H (3.5-5.1) mmol/L Carbon Dioxide 17 L (22-30) mmol/L BUN 80 H (7-17) mg/dL Creatinine 4.18 H (0.52-1.04) mg/dL Glucose 130 H (74-99) mg/dL POC Glucose (mg/dL) 116 H (75-99) mg/dL Calcium 7.9 L (8.4-10.2) mg/dL ALT 58 H (4-34) U/L Total Protein 4.6 L (6.3-8.2) g/dL Albumin 2.2 L (3.5-5.0) g/dL Microbiology - Last 24 Hours (Table) 05/04/20 18:49 Blood Culture - Preliminary Blood No Growth after 48 hours 05/03/20 11:55 Blood Culture - Preliminary Blood No Growth after 96 hours 05/06/20 11:00 Blood Culture - Preliminary Blood No Growth after 24 hours 05/06/20 11:00 Blood Culture - Preliminary Blood No Growth after 24 hours Assessment and Plan Assessment: Impression 1. Hemodialysis dependent ATN from: Pneumonia on dialysis. Was dialyzed yesterday no fluid was taken off. No evidence of fluid overload except for edema 2. Mild degree of hyponatremia and hyperkalemia from ATN 3. Mild degree of non-gap and gap acidosis bicarbonate 17 gap is 14 secondary to acute kidney injury 4. When dependent respiratory failure from [place] pneumonia. 5. E. coli and Brittney urine cultures positive. 6. Status post trach and PEG 7. Atrial fibrillation, currently in normal sinus rhythm Recommendation 1. Will watch her electrolytes the sodium and potassium in particular with repeat labs tomorrow 2. Next dialysis expected to be on Sunday thereafter tomorrow 3. Will give her sodium bicarb 650 mg via PEG tube as her pH is 7.29 and pCO2 is 41
[2020-05-08 09:35] LABS: Glucose,Whole Blood 134 mg/dL (75-99)
[2020-05-08] MEDS: fentaNYL (PF) 1,000 MCG in SODIUM CHLORIDE 0.9% 80 ML IV SCH (09:35)
[2020-05-08] MEDS: CHOLECALCIFEROL 25 MCG (1000 IU) TABLET PO SCH (09:36)
[2020-05-08] MEDS: ASCORBIC ACID 500 MG TAB PO SCH (09:36)
[2020-05-08] MEDS: ENOXAPARIN 30 MG/0.3 ML SYRINGE SQ SCH (09:36)
[2020-05-08] MEDS: PIPERACILLIN-TAZOBACTAM 3.375 GM in SODIUM CHLORIDE 0.9% 100 ML IVPB SCH ×2 (09:37→22:10)
[2020-05-08] MEDS: ZINC SULFATE 220 MG CAP PO SCH (09:37)
[2020-05-08] MEDS: FAMOTIDINE 20 MG TAB OG-TUBE SCH (09:37)
[2020-05-08] MEDS: CHLORHEXIDINE GLUCONATE 15 ML CUP MUCOUS MEM SCH (09:37)
--- NOTE | 2020-05-08 10:03 | P.PN ---
Subjective Ms. Mccoy is a 69-year-old female with a past medical history of hypertension and thyroid disorder admitted to the hospital for acute hypoxic respiratory failure secondary to COVID 19 pneumonia. Patient has extensive bilateral interstitial pneumonia. She is on a low and pulmonary Dr. Mathews is following the patient. Patient received a convalescent plasma, is also on Remdesivir. On 04/17/2020- This morning patient was evaluated in the ICU. Patient is comfortably sitting in a chair states that her breathing is improving gradually. She denies having any chest pain or palpitations. No cough or hemoptysis. She denies having any swelling or for lower extremities. No abdominal pain nausea vomiting or diarrhea. She denies having any dysuria or hematuria, she has a Bryan's catheter in place. On reviewing her vitals temperature 98.1 heart rate 75 is 5817, blood pressure 1:30 bradycardia. Saturating at 96% on a Aervo -60%. On 04/18/2020 - patient was seen and examined in the ICU. Patient is sitting in a chair by the bedside, states that her breathing has worsened compared to yesterday. Patient is on high flow Airvo, saturating in the low 90s. She denies having any chest pain or palpitations. She complains of cough that is nonproductive. Patient had a chest x-ray done showing stable bilateral air space disease. As the patient was having few episodes of tachycardia, she was started on Lopressor this morning. Patient's inflammatory markers are noted to be high. On reviewing her vitals saturating at 90% on high flow Airvo, heart rate 70s to 80s, respiratory rate 20-25, blood pressure 106-67. In reviewing her labs white count of 29.3, hemoglobin 16.8, platelets 369. D-dimer 6.99, LDH 2969, CRP 63.9. On 04/19/2020 - patient is seen and examined in the ICU. She is currently on BiPAP, as her respiratory status has worsened compared to yesterday. Patient denies having any chest pain or palpitations. No abdominal pain nausea vomiting or diarrhea. No dysuria or hematuria. She is on BiPAP 14/6 and 100% FiO2. On reviewing her vitals temperature is 99.2, respiratory rate is 25, heart rate 70, blood pressure 10 9 x 71. Reviewing the labs white count of 27.3, hemoglobin 17.4, platelets 314. Sodium 133, potassium 4.4, chloride 90, bicarbonate 35, BUN 31, creatinine 0.72. Ferritin 3195, CRP 217 and LDH 2747. 04/20/2020 This is a pleasant 69 years old female with multiple medical problems was adm itted for bilateral Covid pneumonia, she is currently on aervo at 90%/60 L of oxygen, saturating 89%. Rest of Vitas looks stable Also she is on BiPAP All the night. She is able to eat and drink, no pressors She is on normal saline at 75 mL/h with adequate urine output Patient is currently ON Medrol 40 mg twice daily, Lovenox 60 mg twice Mary and vitamin C and zinc. She finished her remdisvir and convelecent plasma. 04/21/2020 Patient remains in the ICU bed and respiratory support for her bilateral Covid pneumonia. She still dyspneic especially with exertion and she still needs BiPAP during the day shift. Also she had a fever today of 102.2. Patient is empirically on Zosyn/calcitonin check today showing normal level at 0.07. She has leukocytosis of 29K. I agree with Zosyn and I recommended to continue with that for now. Also patient is on steroids 60 mg every 6 hours. As there is no more significant progress progress in her clinical picture Glucose is 123 and inflammatory markers still elevated 04/22/2020 this is a pleasant 69 yo F who is admitted to the ICU for covid pneumonia, she is still on BiPAP dependant , TNP is started for her nutrition for this reasone. her oxygen saturation is on low 90s% cxr: diffuse interstitial opacities and worsening airspace disease in the left lower lung. consider interstitial edema wbc is sligtly less 26K, she is currently continued on zosyn , and solumedrol 60 mg. and normal saline increased to 150 ml/hr. and lovenox 60 mg BID she finised her Remdisvir and convelescent Plasma. 04/23/2020 Patient looks very tired, she came Off the BiPAP today morning and she was placed back on airvo at 60 L she is back and forth between BiPAP and airvo, however she probably will need BiPAP at night Inflammatory markers and d-dimer increased, ferritin 3100 up to 3700 and d-dimer 3 up to 5 Chest x-ray showing bilateral middle and lower infiltrates with slight improvement Treatments with antibiotics Zosyn, fluconazole was added today. Also she is also on Solu-Medrol 60 mg, normal sling was decreased to 50 mL per hour, Lovenox 60 mg twice daily, TPN and she is on vitamin C and zinc 04/24/2020 Patient today her clinical condition deteriorated, she was hypoxic this morning with oxygen saturation in the 70s percent and she was tachycardic with heart rate 140-150, patient ended up being intubated in the morning and she was in an you onset of A. fib and started on Cardizem drip on 15 mg however her heart rate was still elevated, cardiology team were consulted, blood pressure was on the low normal side. Amiodarone drip was started. Cardiology team and Cardizem drip was shut to 15 mg/h. Also insulin drip for hyperglycemia with sugar more than 300. 04/25/2020 Patient was intubated yesterday for deteriorated respiratory status, ABG showing elevated pCO2 on 496 with acidosis. 7.0 and 7.1. Oxygen saturation is acceptable at 107. She remains on mechanical ventilation managed by pulmonary/critical care team, currently her bruits and draped with before meals at 40 to help with her acidosis. Her creatinine worsened today 0.5 up to 1.3, with potassium elevated as well as 5.5 nephrology team were consulted who ordered insulin/dextrose 50%, sodium bicarb 1 and Lasix 80 mg 1. Hand Trimmer recommended hemodialysis and no improvement in 24 hours Chest x-ray showing pneumonia and edema which is stable from yesterday. Sugar improved and we could switch her insulin drip to insulin sliding scale A. fib is improved and converted to sinus rhythm with amiodarone which is switched to Pills Now per Composite Mechanic, She Is Already on Anticoagulation 04/26/20 Patient remains in the ICU sedated and intubated with pulmonary/ critical care team following the case closely. Showing trending down leukocytosis to 20 6.1K. Creatinine up to 2.8, Patient is developing anuria with acute kidney injury, nephrology evaluation is appreciated and hemodialysis is initiated. Chest x-ray showing interstitial infiltrate especially in the mid to lower lungs Echocardiogram showed ejection fraction of 55-60%, and atrial fibrillation i mproved yesterday with amiodarone She remains on Solu-Medrol, Zosyn and fluconazole, normal sinus 50 and vitamin C and zinc Lovenox dose was adjusted to renal function down to 50 mg daily Prognosis remains guarded 04/27/2020 Patient with bilateral: With pneumonia that her purse and eventually got i ntubated, pulmonary/critical care team and several consultants are following the case, vent management as per pulmonary team. She has leukocytosis of 13.8 K. Creatinine today is 3.37 Patient undergoing hemodialysis for the last 2-3 days for acute kidney injury and [facility] Patient A. fib heart rate becomes uncontrolled today and her amiodarone to switch to a drip. Other medication including Solu-Medrol 60 mg, vitamin C and zinc, Zosyn and fluconazole, she is on normal saline at 50 mL/h and Lovenox dose dropped to 30 mg daily 04/28/2020 Patient remains intubated and sedated in the ICU, followed closely by critical care team. Vital showing tachycardia and tachypnea. WBC is 30 3.5K. Cre atinine 3.8, sodium 134. Sugar is controlled. Inflammatory markers are elevated. She is undergoing hemodialysis today Chest x-ray from today showing no change from last one yesterday Medication-hernandez he remains on Solu-Medrol, Zosyn, 30 mg of Lovenox daily which is renal dose and amiodarone drip. Normal saline at 50 mm was discontinued today 04/29/2020 This is a pleasant 69 years old female with bilateral, with pneumonia. Patient remains in the ICU sedated and intubated with pulmonary/critical care team following the case closely. Normal sedation holiday for the patient currently She already finished her treatment with remdesivir and convalescent plasma, and currently she is on vitamin C and zinc. She was on steroids in the form of high dose of Solu-Medrol 60 mg and Zosyn and fluconazole for possible bacteria and fungal infection associated with viral infection. Patient course was complicated by renal failure and new or so she underwent hemodialysis, last HD was yesterday, she is kept on renal dose of Lovenox 30 mg daily. Other complication is atrial fibrillation with RVR which is currently controlled with oral amiodarone and low-dose of Cardizem drip. Patient condition remains critical and she kept on mechanical ventilation with close monitoring Procalcitonin is unchanged yesterday at 0.39 compared to one week ago at 0.39. We'll order another test tomorrow 04/30/2020 Patient is seen and evaluated and follow-up continues to remain closely monitored in the ICU. Patient continues to be on a mechanical ventilator intubated and sedated currently off paralytics. Patient being followed by multiple medical consultations including cardiology, pulmonary, nephrology. Patient currently receiving hemodialysis for ultrafiltration and became extremely hypotensive maxing out on pressors and dialysis was aborted. Patient prognosis is extremely guarded and poor at this time. Patient continues to be on IV steroids along with Lovenox vitamin C and D and zinc supplements and will continue. Patient is also maintained on IV antibiotics in the form of Zosyn and vancomycin being added. Patient currently off of IV amiodarone and IV Cardizem and transitioned to oral amiodarone and will continue at this time. Chest x-ray continues to show interstitial pneumonia with bilateral basilar infiltrates and tiny effusions. She also had an abdominal x-ray showing nonspecific abdomen with no diagnostic evidence of obstruction. White blood count today is 27.9, hemoglobin is stable at 12.7, d-dimer is elevated although slowly trending down at 3.04, current sodium is 129, potassium is 5.9, BUN is 103 with a creatinine of 4.97. Attempts at ultrafiltration today his potassium is elevated. Nephrology is following closely. 05/01/20 Patient remains in the ICU intubated on mechanical ventilation with pulmonary/critical care team following closely. Patient today underwent sedation holiday and into hours she started becoming agitated and developed atrial fibrillation's with RVR, she has to be placed back on amiodarone drip and Cardizem drip 10 mg per hour before it was converted to sinus rhythm again Currently she is tachypneic with a breathing rate around 32. She is saturating 91% on FiO2 of 60% Leukocytosis 27.9 yesterday and 24.6K today. D-dimer stable at 3.7 so she kept on the same dose of Lovenox Inflammatory markers including LDH, protein and C-reactive protein went up slightly today. Patient remains anuric and undergoing hemodialysis She remains on Zosyn and fluconazole, she got 2 doses of IV vancomycin yesterday and today. Also she is on zinc and vitamin C, Lovenox 30 mg daily. Diflucan was stopped 05/02/2020 Patient remains intubated and sedated in the ICU was followed closely by pulmonary/critical care team and for vent management. Patient also with A. fib on several occasions needing Cardizem and amiodarone, cardiology following the patient Patient is still undergoing hemodialysis for anuria and acute kidney injury, nephrology team on the case x-ray showed improvement bibasilar infiltrates She is on some Medrol 60 mg daily, antibiotics were stopped 2 days ago. She is also on Lovenox 30 mg daily, vitamin C and zinc 05/03/2020 Patient is seen this morning currently remains in the ICU receiving hemodialysis today. Multiple medical consultations following. Patient remains on mechanical vent and is intubated and sedated and will continue at this time. D-dimer is elevated at 5.50, sodium is 132, potassium is 5.9, BUN is 108, current creatinine is 4.87. White blood count is 31.3 and hemoglobin is 11.3. Patient blood pressure is elevated as well and has been continuing with daily dialysis. Chest x-rays today show interstitial infiltrates or edema in the mid and lower lungs continue with slight improvement on the left. Patient remains on IV antibiotics in the form of Zosyn and will continue at this time. Infectious disease is following as well. 05/04/2020 Patient is seen in follow-up currently remains in the ICU. Surgical consult was placed for trach and PEG tube placement as patient continues to be on tube feedings and continues to be on a mechanical vent. Dimer elevated at 7.38. Nephrology also following as patient has been receiving hemodialysis and current creatinine today is 4.23 with a BUN of 98 and potassium is 5.9. Patient will be made nothing by mouth and tube feedings held for surgery tomorrow. Family continues to wish for full CODE STATUS. Sputum cultures preliminary showing Brittney albicans and urine showing gram-negative bacilli with Brittney albicans. Infectious disease is following. Patient is maintained on IV antibiotics in the form of Zosyn and daptomycin being added. Will await culture finalization. 05/05/2020 Patient continues to be in the ICU currently on a mechanical vent awaiting PEG tube and trach placement today with surgery. Multiple medical consultations f ollowing including nephrology. Potassium was 5.5 this morning and will correct prior to surgery patient will be receiving hemodialysis this afternoon. Inflammatory markers trending down. Patient is maintained on IV antibiotics in the form of daptomycin along with Zosyn and will continue. Tube feedings on hold this morning for surgery. 05/06/2020 Patient is status post tracheostomy and PEG tube placement and will initiate tube feeds this afternoon per surgery. Patient is currently receiving hemodialysis and nephrology following closely. Patient to continue IV daptomycin and Zosyn. Infectious disease is following. Urine cultures finalized showing E. coli and Brittney. Patient's blood pressures have been on the lower end and elevated heart rate and cardiology following closely. Patient currently on levophed and oral amiodarone. Prognosis remains extremely poor and guarded. 05/07/2020 Patient is seen and evaluated this morning currently being closely monitored in the ICU remains on the mechanical vent via tracheostomy along with PEG tube feedings. Patient also continues to be on levophed and once again on amiodarone drip as patient developed atrial fibrillation with RVR yesterday. Multiple medical consultations following. Patient was seen and evaluated by anesthesia as patient continued to have an air leak that was present around the tracheostomy and patient underwent bronchoscope with Dr. Motta today. Patient continues to have generalized edema. Patient is maintained on hemodialysis although unable to tolerate today. Patient has resumed tube feedings and t olerating thus far. 05/08/2020 Patient remains on ventilatory support presently on norepinephrine which is being weaned off patient is on amiodarone dripand improvement at this time. Patient is being weaned off sedatives and narcotics. White blood cell count still remains elevated. Patient is presently on empiric Zosyn and and daptomycin patient is also on high-dose steroids at this time. Review of systems: Unable to obtain as patient's currently intubated and sedated Objective - Vital Signs Vital signs: Vital Signs Temp 97.9 F 05/07/20 16:00 Pulse 59 L 05/08/20 06:00 Resp 32 H 05/08/20 06:00 BP 104/58 05/08/20 06:00 Pulse Ox 95 05/08/20 06:00 Intake & Output 05/07/20 05/08/20 05/08/20 18:59 06:59 18:59 Intake Total 1228.852 470 362 Output Total 30 15 Balance 1198.852 455 362 Weight 121.8 kg 123.2 kg Intake: IV 276 276 46 0.9% KVO 240 240 40 Pressure Bag 36 36 6 Intake, IV Titration 627.852 150 Amount Dextrose 5% in Water 100 100 ml @ 618 mls/hr IV .Q10M ONE with Amiodarone 150 mg Rx#:[id number] Norepinephrine 32 mg In 19.082 Sodium Chloride 0.9% 218 ml @ 0.05 MCG/KG/MIN 2. 848 mls/hr IV .Q24H [facility] Rx#:[id number] Piperacillin-Tazobactam 3 100 .375 gm In Sodium Chloride 0.9% 100 ml @ 25 mls/hr IVPB Q12HR [facility] Rx #:[id number] fentaNYL (PF) 1,000 mcg 200 100 In Sodium Chloride 0.9% 80 ml @ Per Protocol IV . Q0M [facility] Rx#:[id number] propofoL 1,000 mg In 100 Empty Bag 1 bag @ Titrate IV .Q0M [facility] Rx#: [id number] propofoL 500 mg In Empty 108.77 50 Bag 1 bag @ Titrate IV . Q0M [facility] Rx#:[id number] Tube Feeding 205 44 286 Other 120 30 Output: Urine 30 15 Other: Voiding Method Indwelling Catheter Indwelling Catheter # Voids 130 ABP, PAP, CO, CI - Last Documented Arterial Blood Pressure 155/50 - Exam Physical Exam: Revealed a 69-year-old female , intubated and mechanically ventilated. Head: Atraumatic normocephalic. Tracheostomy is intact. Position today via bronchoscope. HEENT: PERRLA,, EOMI, nonicteric. Moist mucous membranes Chest: [Symmetrical chest expansion, crackles at the bases persists. Cardiac Exam: [Normal S1 and S2, no S3 gallop, no murmur.] Abdomen: [Soft, nontender, no megaly, no rebound, no guarding, normal bowel sounds.] PEG tube is intact. Extremities: [No clubbing, 2+ bipedal edema, no cyanosis.] Neurological Exam: [Not assessed, patient is sedated, she is on propofol and fentanyl. These certainly placed on hold today, and addressed mental status if possible. Psychiatric: Could not be assessed. Skin: No rashes. - Labs CBC & Chem 7: 05/07/20 03:44 05/08/20 07:15 Labs: Abnormal Lab Results - Last 24 Hours (Table) 05/07/20 05/07/20 05/07/20 Range/Units 11:17 16:01 22:00 ABG pH (7.35-7.45) ABG HCO3 (21-25) mmol/L Sodium (137-145) mmol/L Potassium (3.5-5.1) mmol/L Carbon Dioxide (22-30) mmol/L BUN (7-17) mg/dL Creatinine (0.52-1.04) mg/dL Glucose (74-99) mg/dL POC Glucose (mg/dL) 137 H 142 H 117 H (75-99) mg/dL Calcium (8.4-10.2) mg/dL ALT (4-34) U/L Total Protein (6.3-8.2) g/dL Albumin (3.5-5.0) g/dL 05/07/20 05/08/20 05/08/20 Range/Units 23:59 04:00 07:15 ABG pH 7.29 L (7.35-7.45) ABG HCO3 20 L (21-25) mmol/L Sodium 131 L (137-145) mmol/L Potassium 5.3 H (3.5-5.1) mmol/L Carbon Dioxide 17 L (22-30) mmol/L BUN 80 H (7-17) mg/dL Creatinine 4.18 H (0.52-1.04) mg/dL Glucose 130 H (74-99) mg/dL POC Glucose (mg/dL) 116 H (75-99) mg/dL Calcium 7.9 L (8.4-10.2) mg/dL ALT 58 H (4-34) U/L Total Protein 4.6 L (6.3-8.2) g/dL Albumin 2.2 L (3.5-5.0) g/dL 05/08/20 Range/Units 09:34 ABG pH (7.35-7.45) ABG HCO3 (21-25) mmol/L Sodium (137-145) mmol/L Potassium (3.5-5.1) mmol/L Carbon Dioxide (22-30) mmol/L BUN (7-17) mg/dL Creatinine (0.52-1.04) mg/dL Glucose (74-99) mg/dL POC Glucose (mg/dL) 134 H (75-99) mg/dL Calcium (8.4-10.2) mg/dL ALT (4-34) U/L Total Protein (6.3-8.2) g/dL Albumin (3.5-5.0) g/dL Microbiology - Last 24 Hours (Table) 05/04/20 18:49 Blood Culture - Preliminary Blood No Growth after 48 hours 05/03/20 11:55 Blood Culture - Preliminary Blood No Growth after 96 hours 05/06/20 11:00 Blood Culture - Preliminary Blood No Growth after 24 hours 05/06/20 11:00 Blood Culture - Preliminary Blood No Growth after 24 hours Assessment and Plan Plan: Acute hypoxic respiratory failure secondary to covid 19 pneumonitis. Requiring intubation and mechanical ventilation on 04/24/2020, Status post tracheostomy and PEG tube placement on 05/05/2020. Obesity with body index of 35. Elevated d-dimer but negative for pulmonary embolism. Paroxysmal atrial fibrillation with RVR, Acute kidney injury from Covid 19 infection requiring hemodialysis. Elevated liver enzymes secondary to viral pneumonia. Elevated inflammatory markers continue to viral pneumonia. Gram-positive bacteremia, addressed by infectious disease on the case. Could be catheter related sepsis. Malpositioning of tracheostomy requiring readjustment using the bronchoscope. On 05/07/2020 Plan: Continue ventilatory support Continue enteral feeding via PEG tube. Continue to monitor in the ICU. Continue mechanical ventilation, GI prophylaxis, nutritional/enteral feeding. Follow-up on the blood cultures and the cultures drawn from the PICC line and from the dialysis cath. Continue the present cocktail for covid 19 pneumonitis. Finished her full course of remdesivir, and to units of convalescent plasma. Continue Solu-Medrol, presently on 60 mg IV push every 6 hours. and continue, vitamin C, vitamin D, and zinc. Continue Lovenox. May consider increasing the dose since the patient is having atrial fibrillation and RVR. Remains critically ill, Weaning from sedation for assessment of mental status yesterday failed, patient developed atrial fibrillation with RVR, she also developed hypotension requiring norepinephrine, and she is now on norepinephrine and amiodarone drip. , Continue with daptomycin, Zosyn
--- NOTE | 2020-05-08 10:24 | P.PN ---
Progress Note - Text Progress Note Date: 05/08/20 Patient still. Her tracheostomy tube was adjusted yesterday. There is no further possibly cuff leak. Her PEG site is clean. Patiently receive supportive care.
[2020-05-08 11:34] LABS: Glucose,Whole Blood 115 mg/dL (75-99)
[2020-05-08] MEDS: FOLIC ACID 1 MG TAB PO SCH (12:05)
[2020-05-08] MEDS: SODIUM BICARBONATE TAB 650 MG TAB PO SCH ×3 (12:05→22:11)
[2020-05-08] MEDS: THIAMINE 100 MG TAB PO SCH (12:06)
[2020-05-08] MEDS: MULTIVITAMINS, THERA 1 EACH TAB PO SCH (12:06)
[2020-05-08] MEDS: DAPTOmycin 750 MG in SODIUM CHLORIDE 0.9% 50 ML IVPB SCH (12:06)
--- NOTE | 2020-05-08 12:23 | P.PN ---
Subjective Progress Note Date: 05/08/20 Principal diagnosis: Acute hypoxic respiratory failure secondary to covid 19 pneumonitis This 69-year-old white female patient who was admitted to the hospital on 04/11/2020 when she came in for evaluation of 1 week history of cough, fever, shortness of breath, decreased appetite and intermittent episodes of diarrhea. Patient was diagnosed with COVID 19 pneumonia, this was done via outpatient testing through the health Department. Patient initially presented at [facility], she was hypoxemic with a pulse ox in the 80s and she was placed on high flow oxygen and transferred to the [facility]. CT angiogram of the chest showed no evidence of pulmonary embolism, however it showed evidence of bilateral interstitial infiltrates consistent with COVID 19 pneumonitis. Patient completed her Remdesivir treatment on 04/16/2020, she received 2 units of convalescent plasma, she remains on IV steroids with IV Solu-Medrol. In view of her worsening hypoxemia patient was transferred to the intensive care unit, she is intubated on 04/24/2020 05/02/2020, the patient remains intubated on a mechanical ventilator. She remains on propofol which is running at 35 mcg/kg per minute and the patient is on fentanyl running at 1 g per KG per hour. The patient is well sedated and, comfortable suggest a mechanical ventilator. Her vent settings are essentially the same. The patient is on a VC plus mode with a rate of 32 and FiO2 of 50% with a PEEP of 15 and a tidal volume of 400. Peak airway pressures 31, static pressures probably 38. Blood gas showed a pH of 7.27 with a pCO2 of 51 and pO2 of 69 and the blood is essentially stable and comparable to yesterday's value. The patient has no major secretions. The chest x-ray stable with diffuse breath and pulmonary infiltrates and there is no evidence of pneumothorax. ET tube is in good location. She remains on Solu-Medrol 60 mg every 6 hours inpatient LDH level is down to 792 and the CRP level is down to 16.4 and the d-dimer today is at 3.47. She is afebrile. She has a small amount of diarrhea and fecal management system is in place. Urine output is minimal and the patient is re ceiving dialysis periodically. Her last bout of dialysis was yesterday. This was done successfully. Total of 3 L of ultrafiltration was performed without causing any significant hemodynamic changes. In fact she became slightly hypoxic as the patient was being weaned off the propofol and ultimately propofol was restarted. Triglyceride levels are at 285. She is receiving enteral feeding for nutritional support. She remains on vital high protein at the rate of 27 mL an hour and she is essentially at goal. She weighs was restarted yesterday and there is no significant residuals. No emesis. She was having issues with frequent PVCs and short runs of atrial fibrillation yesterday. Based on that, cardiology restarted the patient on amiodarone drip at 0.5 mg shows and a Cardizem drip has been discontinued. Liver function tests from today shows an AST of 48, ALT of 148 and an alkaline phosphatase of 72. Reevaluated today on 05/03/2020, patient remains intubated and mechanically tonya tilated. She is presently on tidal volume was 420, volume control plus, assist control rate of 32, FiO2 50%, and PEEP is 12. Peak airway pressure is 32, plateau pressure is 25. ABG this morning showed a pO2 of 77 pCO2 of 51 pH of 7.2. 2. Patient remains on propofol is also on fentanyl, both were placed on hold this morning, and soon as the patient was waking up, her blood pressure was in the 200 range systolic. Patient was not awake enough to follow any instructions, hence I recommended that she remains back on propofol and fentanyl. Patient is receiving dialysis through a right hemodialysis catheter in the groin. Patient is receiving enteral feeding/Nepro . Her white count is noted to be elevated today, and her pro calcitonin level was also noted to be a bit elevated, hence I recommended adding Zosyn this will be added empirically, and cultures were ordered. Patient is a good set up for catheter sepsis. Patient was intubated on 04/24/2020, and over the next few days if the patient does not tolerate weaning may have to consider tracheostomy and PEG tube placement. Her ABG remains marginal and her PEEP remains relatively high at 12, FiO2 is at 50%, but she is nowhere near weaning at this point. WBC count today is up to 31.3, hemoglobin is 11.3. Electrolytes showed elevated potassium of 5.9, and the patient had a BUN of 108 creatinine 4.87, she is about to be di alyzed in the next 15 minutes. Inflammatory markers showed LDH of 891 C- reactive protein is 9.7, ferritin is 2220. Chest x-ray continues to show bilateral interstitial infiltrates Reevaluated today on 05/04/2020 patient remains in the ICU, intubated and mechanically ventilated. Patient is on assist control rate of 32, volume control +420, inspiratory time is 0.90 seconds, FiO2 50% and PEEP of 12. ABG showed a pO2 of 73 pCO2 of 44 pH of 7.29. PEEP was decreased down to 10. The other vent settings as noted. Patient is on propofol at 40 mcg/kg/m, fentanyl at 20 mcg/kg/h, his also on IV fluid at KVO, receiving enteral feeding. Patient will likely be dialyzed again depending on her potassium today. Her arterial line does not seem to be functional today, hence a new arterial line was placed in the right radial artery. Chest x-ray continues to show bilateral interstitial infiltrates. Slightly worsening left lower lobe infiltrate, but improving right lower lobe infiltrate. Electrolytes are normal except for potassium of 5.9. BUN is 98 creatinine 4.23. LDH and C-reactive protein are improving compared to yesterday. Blood cultures sputum cultures and urine cultures are pending these were sent yesterday again. Sputum culture so far is showing Brittney albicans. And her urine is showing Brittney and gram-negative bacilli. Patient is being followed by infectious disease on the case. Presently on Zosyn and daptomycin. Reevaluated today on 05/05/2020, patient remains in the ICU, intubated and mechanically ventilated. Patient remains on mechanical ventilation, assist cont rol rate of 32 tidal volume is 420, volume control plus, FiO2 50%, PEEP is 10. I was able to get the PEEP down to 8 today. Patient remains on propofol at 40 mcg/kg/m, she is also on fentanyl, IV fluid at KVO. Patient is having positive blood cultures, and the concern is catheter related sepsis especially with the patient having a dialysis catheter in her right groin, and she has a PICC line. This was addressed by infectious disease on the case, recommended more blood cultures to be drawn from the PICC line and blood cultures to be drawn from the dialysis catheter, in the meantime patient was started on daptomycin. Patient is supposed to undergo tracheostomy and PEG tube placement today. I had a long discussion yesterday with her nephew who is a retired physician, updated on her condition, and he seems to be agreeable with the rest of the family members according to him to proceed with tracheostomy and PEG tube placement. Patient had hemodialysis yesterday, and 2 L were taken off. Again the major concern at this point is the fact that she has E. coli infection in the urine, and she has positive blood cultures what seems to be staph epidermidis. And it is most likely related to catheter related sepsis. Chest x-ray continues to show bilateral interstitial infiltrates/interstitial edema. Reevaluated today on 05/06/2020, patient remains in the ICU, intubated and mechanically ventilated. Patient underwent tracheostomy and PEG tube placement yesterday. She is now on volume control plus mode of mechanical ventilation, rate is 32, tidal volume is 420, inspiratory time is 0.90, FiO2 is 50%, and PEEP is 8. Patient remains on propofol, at 40 mcg/kg/m, fentanyl at 1.5 mcg/kg/h, IV fluid at KVO, and she is undergoing hemodialysis today. More blood cultures were ordered to be done from the PICC line and from her dialysis catheter, May have to seriously consider changing her dialysis catheter to another site, this will be reevaluated by infectious disease on the case, and cultures from the sites are pending. Patient was started and a daptomycin, and her white count is coming down, most recent blood cultures remain negative. Yesterday the patient was dialyzed, 2.5 L were removed, and the plan is to remove 3 L today. Antibiotics hernandez, patient is on Zosyn and daptomycin. ABG today showed a pO2 of 71 pCO2 of 40 pH of 7.33. Electrolytes showed low sodium of 130 slightly elevated potassium of 5.4 BUN is 72 creatinine 3.63. WBC count is coming down to 26.5, hemoglobin is 11.5. Chest x-ray continues to show lower interstitial infiltrates, difficult to tell whether these are interstitial edema related because of her fluid overload and renal failure, or related to her underlying covid 19 pneumonitis. Reevaluated today on 05/07/2020, upon my initial evaluation of the patient, I was notified that the patient is having significant air leak from her tracheostomy. Hence I went ahead and used the bronchoscope, bronchoscope the patient, and over the bronchoscope, the tracheostomy tube was readjusted, and placed about 2.5 cm above the antwon. This was done with direct visualization. Patient was losing significant volume earlier today, however after the adjustment, no further leak was noted. Patient is on assist control rate of 32, tidal volume is 420, FiO2 50%, PEEP of 8. Yesterday patient developed atrial fibrillation with RVR associate with hypotension, this happened as the patient was being weaned from sedatives and narcotics, and the plan was to assess mental status and assess for further weaning if possible. However this was hindered by the fact that the patient developed A. fib with RVR. Today the patient remains on multiple drips including norepinephrine at 0.03 amiodarone at 1 mg drip, she is also on fentanyl, and propofol at 40. ABG today showed a pO2 of 83 pCO2 of 44 pH of 7.30. Remains in A. fib, rate is 104/m, WBC count today is 31.1, hemoglobin is 11.1. Electrolytes are normal however her BUN is 60 creatinine 3.44. Chest x- ray shows coarse perihilar and basilar infiltrates present. Slight improvement compared to previous x-rays. Follow-up blood cultures from 05/04/2020, remain negative. The patient is seen today 05/08/2020 in follow-up in the intensive care unit. She remains on mechanical ventilator and assist control 32, tidal volume 420, FiO2 50% and a PEEP of 8. Morning blood gases revealed a pO2 of 87, pCO2 41, pH 7.29. Tracheostomy tube secured in place. She remains on fentanyl drip at 1.5 mcg/kg/h. Propofol at 35 mcg/kg/m. Amiodarone at 0.5 mg/m. Norepinephrine currently on hold. Being nourished with Nepro at 22 mL per hour which is goal. Antibiotics in the form of Zosyn and daptomycin. Follow-up troponin I screening was negative. She remains on Lovenox, IV Solu-Medrol, bronchodilators. She was given a daily interruption of sedation yesterday and she went into atrial fibrillation with rapid ventricular response. Currently in sinus rhythm. Follow-up blood cultures continue to reveal no growth. Sodium 131. Potassium 5.3. Creatinine 4.18. No plans for hemodialysis today. Chest x-ray continues to reveal massive fluid overload. No significant change from previous. Objective - Vital Signs Vital signs: Vital Signs Temp 97.5 F L 05/08/20 08:00 Pulse 57 L 05/08/20 11:00 Resp 35 H 05/08/20 11:00 BP 133/70 05/08/20 11:00 Pulse Ox 94 L 05/08/20 11:00 Intake & Output 05/07/20 05/08/20 05/08/20 18:59 06:59 18:59 Intake Total 1228.852 470 557 Output Total 30 15 10 Balance 1198.852 455 547 Weight 121.8 kg 123.2 kg Intake: IV 276 276 115 0.9% KVO 240 240 100 Pressure Bag 36 36 15 Intake, IV Titration 627.852 150 Amount Dextrose 5% in Water 100 100 ml @ 618 mls/hr IV .Q10M ONE with Amiodarone 150 mg Rx#:[id number] Norepinephrine 32 mg In 19.082 Sodium Chloride 0.9% 218 ml @ 0.05 MCG/KG/MIN 2. 848 mls/hr IV .Q24H [facility] Rx#:[id number] Piperacillin-Tazobactam 3 100 .375 gm In Sodium Chloride 0.9% 100 ml @ 25 mls/hr IVPB Q12HR [facility] Rx #:[id number] fentaNYL (PF) 1,000 mcg 200 100 In Sodium Chloride 0.9% 80 ml @ Per Protocol IV . Q0M [facility] Rx#:[id number] propofoL 1,000 mg In 100 Empty Bag 1 bag @ Titrate IV .Q0M [facility] Rx#: [id number] propofoL 500 mg In Empty 108.77 50 Bag 1 bag @ Titrate IV . Q0M [facility] Rx#:[id number] Tube Feeding 205 44 352 Other 120 90 Output: Urine 30 15 10 Other: Voiding Method Indwelling Catheter Indwelling Catheter Indwelling Catheter # Voids 130 ABP, PAP, CO, CI - Last Documented Arterial Blood Pressure 142/55 - Exam Physical Exam: Revealed a 69-year-old female, tracheostomy tube in place and mechanically ventilated. Head: Atraumatic normocephalic. Tracheostomy is intact. Position today via bronchoscope. HEENT: PERRLA,, EOMI, nonicteric. Moist mucous membranes Chest: Symmetrical chest expansion, crackles at the bases persists. Cardiac Exam: Normal S1 and S2, no S3 gallop, no murmur. Abdomen: Soft, nontender, no megaly, no rebound, no guarding, normal bowel sounds. PEG tube is intact. Extremities: No clubbing, 2+ bipedal edema, no cyanosis. Neurological Exam: Not assessed, patient is sedated, she is on propofol and fentanyl. These certainly placed on hold today, and addressed mental status if possible. Psychiatric: Could not be assessed. Skin: No rashes. - Labs CBC & Chem 7: 05/07/20 03:44 05/08/20 07:15 Labs: Abnormal Lab Results - Last 24 Hours (Table) 05/07/20 05/07/20 05/07/20 Range/Units 16:01 22:00 23:59 ABG pH (7.35-7.45) ABG HCO3 (21-25) mmol/L Sodium (137-145) mmol/L Potassium (3.5-5.1) mmol/L Carbon Dioxide (22-30) mmol/L BUN (7-17) mg/dL Creatinine (0.52-1.04) mg/dL Glucose (74-99) mg/dL POC Glucose (mg/dL) 142 H 117 H 116 H (75-99) mg/dL Calcium (8.4-10.2) mg/dL ALT (4-34) U/L Total Protein (6.3-8.2) g/dL Albumin (3.5-5.0) g/dL 05/08/20 05/08/20 05/08/20 Range/Units 04:00 07:15 09:34 ABG pH 7.29 L (7.35-7.45) ABG HCO3 20 L (21-25) mmol/L Sodium 131 L (137-145) mmol/L Potassium 5.3 H (3.5-5.1) mmol/L Carbon Dioxide 17 L (22-30) mmol/L BUN 80 H (7-17) mg/dL Creatinine 4.18 H (0.52-1.04) mg/dL Glucose 130 H (74-99) mg/dL POC Glucose (mg/dL) 134 H (75-99) mg/dL Calcium 7.9 L (8.4-10.2) mg/dL ALT 58 H (4-34) U/L Total Protein 4.6 L (6.3-8.2) g/dL Albumin 2.2 L (3.5-5.0) g/dL 05/08/20 Range/Units 11:32 ABG pH (7.35-7.45) ABG HCO3 (21-25) mmol/L Sodium (137-145) mmol/L Potassium (3.5-5.1) mmol/L Carbon Dioxide (22-30) mmol/L BUN (7-17) mg/dL Creatinine (0.52-1.04) mg/dL Glucose (74-99) mg/dL POC Glucose (mg/dL) 115 H (75-99) mg/dL Calcium (8.4-10.2) mg/dL ALT (4-34) U/L Total Protein (6.3-8.2) g/dL Albumin (3.5-5.0) g/dL Microbiology - Last 24 Hours (Table) 05/04/20 18:49 Blood Culture - Preliminary Blood No Growth after 48 hours 05/03/20 11:55 Blood Culture - Preliminary Blood No Growth after 96 hours 05/06/20 11:00 Blood Culture - Preliminary Blood No Growth after 24 hours 05/06/20 11:00 Blood Culture - Preliminary Blood No Growth after 24 hours Assessment and Plan Assessment: Impression: Acute hypoxic respiratory failure secondary to covid 19 pneumonitis. Requiring intubation and mechanical ventilation on 04/24/2020, Status post tracheostomy and PEG tube placement on 05/05/2020. Obesity with body index of 35. Elevated d-dimer but negative for pulmonary embolism. Paroxysmal atrial fibrillation with RVR, Acute kidney injury from Covid 19 infection requiring hemodialysis. Elevated liver enzymes secondary to viral pneumonia. Elevated inflammatory markers continue to viral pneumonia. Gram-positive bacteremia, addressed by infectious disease on the case. Could be catheter related sepsis. Malpositioning of tracheostomy requiring readjustment using the bronchoscope. On 05/07/2020 Recommendation: Attempt to wean off fentanyl Slowly wean off propofol and initiate Precedex if tolerated Continue ventilatory support Continue enteral feeding via PEG tube. Continue mechanical ventilation, GI prophylaxis, nutritional/enteral feeding. Follow-up on the blood cultures and the cultures drawn from the PICC line and from the dialysis cath. Continue the present cocktail for covid 19 pneumonitis. Finished her full course of remdesivir, and 2 units of convalescent plasma. Continue Solu-Medrol, presently on 60 mg IV push every 6 hours. and continue, vitamin C, vitamin D, and zinc. Continue Lovenox. Weaning from sedation for assessment of mental status failed, patient developed atrial fibrillation with RVR, she also developed hypotension requiring norepinephrine, now off norepinephrine Critical care time is 35 minutes.
[2020-05-08] MEDS: DEXMEDETOMIDINE/0.9% NACL(PMX) 400 MCG in EMPTY BAG 1 BAG IV SCH (16:03)
[2020-05-08] MEDS: NOREPINEPHRINE 32 MG in SODIUM CHLORIDE 0.9% 218 ML IV SCH (16:04)
[2020-05-08 16:44] LABS: Glucose,Whole Blood 130 mg/dL (75-99)
--- NOTE | 2020-05-08 18:25 | PN ---
PROGRESS NOTE DATE OF SERVICE: 05/08/2020 REASON FOR FOLLOWUP: Bacteremia and pneumonia. INTERVAL HISTORY: Patient is currently afebrile. The patient is hemodynamically stable, was undergoing dialysis at time of my evaluation. FiO2 is currently stable at 45%. No significant purulent secretion. Still has diarrhea. PHYSICAL EXAMINATION: Blood pressure 135/51 with a pulse of 56. Temperature of 97.6. She is 94% on 45% FiO2. General description is an elderly female intubated on the vent. Respiratory system: Unlabored breathing, decreased breath sounds in the bases. No wheeze. Heart S1, S2. Regular rate and rhythm. Abdomen soft. No tenderness. LABS: BUN of 80, creatinine 4.18, hemoglobin 11.1, white count 31.1 as of yesterday. DIAGNOSTIC IMPRESSION AND PLAN: Patient with acute respiratory failure which is multifactorial in this patient who did have a component of Covid 19 pneumonia, has completed her Remdesivir therapy, now with evidence of bacteremia. Repeat blood cultures have been negative. In view of the dialysis catheter and PICC line, we will give the patient daptomycin. With no evidence of any secondary pneumonia, Zosyn may be discontinued and monitor clinical course closely. MMODL / IJN: [id number] / KELSIE
[2020-05-08] MEDS ORDERED: AMIODARONE 200 MG TAB PO SCH (21:00)
[2020-05-09 00:13] LABS: Glucose,Whole Blood 120 mg/dL (75-99)
[2020-05-09] MEDS: methylPREDNISolone SOD SUCCI 125 MG/2 ML VIAL IV SCH ×4 (03:09→17:25)
[2020-05-09] MEDS: CHLORHEXIDINE GLUCONATE 15 ML CUP MUCOUS MEM SCH ×3 (03:10→21:40)
[2020-05-09] MEDS: INSULIN ASPART (NovoLOG) 100 UNIT/ML VIAL SQ SCH ×6 (03:13→21:16)
[2020-05-09 05:17] LABS: ABG Base Excess -4.8 mmol/L; ABG HCO3 21 mmol/L (21-25); ABG Oxygen Saturation 96.5 % (94-97); ABG PCO2 36 mmHg (35-45); ABG PH 7.37 (7.35-7.45); ABG PO2 84 mmHg (83-108); ABG TCO2 22 mmol/L (19-24)
[2020-05-09 06:49] LABS: Basophils % (A) 0 %; Eosinophils % (A) 0 %; HCT 28.9 % (34.0-46.0); Lymphocytes # (A) 0.6 k/uL (1.0-4.8); Lymphocytes % (A) 3 %; MCH 30.9 pg (25.0-35.0); MCHC 33.3 g/dL (31.0-37.0); Mean Platelet Volume 9.6; Monocytes # (A) 0.7 k/uL (0-1.0); Monocytes % (A) 4 %; Neutrophils # (A) 17.7 k/uL (1.3-7.7); Neutrophils % (A) 92 %; Platelet Count 136 k/uL (150-450); RBC 3.11 m/uL (3.80-5.40); RDW 14.1 % (11.5-15.5); WBC 19.1 k/uL (3.8-10.6)
[2020-05-09 07:01] LABS: HGB 9.6 gm/dL (11.4-16.0)
[2020-05-09] MEDS: METOPROLOL TARTRATE 25 MG TAB PO SCH ×2 (07:17→17:25)
[2020-05-09] MEDS: ZINC SULFATE 220 MG CAP PO SCH (07:38)
[2020-05-09] MEDS: ALBUTEROL HFA INHALER INHALATION SCH ×4 (07:38→19:28)
[2020-05-09] MEDS: LEVOTHYROXINE 50 MCG TAB PO SCH (07:38)
[2020-05-09] MEDS: AMIODARONE 200 MG TAB PO SCH ×2 (07:38→21:40)
[2020-05-09] MEDS: ASCORBIC ACID 500 MG TAB PO SCH (07:39)
[2020-05-09] MEDS: SODIUM BICARBONATE TAB 650 MG TAB PO SCH ×4 (07:39→21:40)
[2020-05-09] MEDS: CHOLECALCIFEROL 25 MCG (1000 IU) TABLET PO SCH (07:39)
[2020-05-09] MEDS: FAMOTIDINE 20 MG TAB OG-TUBE SCH (07:39)
[2020-05-09] MEDS: ENOXAPARIN 30 MG/0.3 ML SYRINGE SQ SCH ×2 (07:39→21:40)
[2020-05-09] MEDS: PIPERACILLIN-TAZOBACTAM 3.375 GM in SODIUM CHLORIDE 0.9% 100 ML IVPB SCH ×2 (07:40→21:40)
--- NOTE | 2020-05-09 07:40 | P.PN ---
Subjective Progress Note Date: 05/09/20 Principal diagnosis: Paroxysmal atrial fibrillation This is a 69-year-old female patient who was admitted to the hospital with COVID-19 infection as well as acute hypoxic respiratory failure required intubation and mechanical ventilation. We saw the patient for paroxysmal atrial fibrillation. The patient was seen today. She has been maintaining normal sinus rhythm with sinus bradycardia. I'm going to decrease the dose of amiodarone from 400-200 mg by mouth twice a day. Increase the dose of Lovenox to be therapeutic. Objective - Vital Signs Vital signs: Vital Signs Temp 98.2 F 05/09/20 04:00 Pulse 48 L 05/09/20 07:00 Resp 22 05/09/20 07:00 BP 117/74 05/09/20 07:00 Pulse Ox 95 05/09/20 07:00 Intake & Output 05/08/20 05/09/20 05/09/20 18:59 06:59 18:59 Intake Total 1199.248 298 73 Output Total 610 2305 Balance 589.248 -2007 73 Weight 122.4 kg Intake: IV 276 276 23 0.9% KVO 240 240 20 Pressure Bag 36 36 3 Intake, IV Titration 217.248 50 Amount Dexmedetomidine/0.9% NaCl 17.248 (Pmx) 400 mcg In Empty Bag 1 bag @ Titrate IV . Q0M [facility] Rx#:[id number] fentaNYL (PF) 1,000 mcg 100 In Sodium Chloride 0.9% 80 ml @ Per Protocol IV . Q0M [facility] Rx#:[id number] propofoL 500 mg In Empty 100 50 Bag 1 bag @ Titrate IV . Q0M [facility] Rx#:[id number] Tube Feeding 506 22 Other 200 Output: Urine 10 105 Stool 600 1200 Hemodialysis 1000 Other: Voiding Method Indwelling Catheter Indwelling Catheter # Voids 130 ABP, PAP, CO, CI - Last Documented Arterial Blood Pressure 120/50 - Constitutional General appearance: Present: no acute distress - Labs CBC & Chem 7: 05/09/20 06:30 05/08/20 07:15 Labs: Abnormal Lab Results - Last 24 Hours (Table) 05/08/20 05/08/20 05/08/20 Range/Units 07:15 09:34 11:32 WBC (3.8-10.6) k/uL RBC (3.80-5.40) m/uL Hgb (11.4-16.0) gm/dL Hct (34.0-46.0) % Plt Count (150-450) k/uL Neutrophils # (1.3-7.7) k/uL Lymphocytes # (1.0-4.8) k/uL Sodium 131 L (137-145) mmol/L Potassium 5.3 H (3.5-5.1) mmol/L Carbon Dioxide 17 L (22-30) mmol/L BUN 80 H (7-17) mg/dL Creatinine 4.18 H (0.52-1.04) mg/dL Glucose 130 H (74-99) mg/dL POC Glucose (mg/dL) 134 H 115 H (75-99) mg/dL Calcium 7.9 L (8.4-10.2) mg/dL ALT 58 H (4-34) U/L Total Protein 4.6 L (6.3-8.2) g/dL Albumin 2.2 L (3.5-5.0) g/dL 05/08/20 05/09/20 05/09/20 Range/Units 16:43 00:11 06:30 WBC 19.1 H (3.8-10.6) k/uL RBC 3.11 L (3.80-5.40) m/uL Hgb 9.6 L D (11.4-16.0) gm/dL Hct 28.9 L (34.0-46.0) % Plt Count 136 L (150-450) k/uL Neutrophils # 17.7 H (1.3-7.7) k/uL Lymphocytes # 0.6 L (1.0-4.8) k/uL Sodium (137-145) mmol/L Potassium (3.5-5.1) mmol/L Carbon Dioxide (22-30) mmol/L BUN (7-17) mg/dL Creatinine (0.52-1.04) mg/dL Glucose (74-99) mg/dL POC Glucose (mg/dL) 130 H 120 H (75-99) mg/dL Calcium (8.4-10.2) mg/dL ALT (4-34) U/L Total Protein (6.3-8.2) g/dL Albumin (3.5-5.0) g/dL Microbiology - Last 24 Hours (Table) 05/04/20 18:49 Blood Culture - Preliminary Blood No Growth after 72 hours 05/03/20 11:55 Blood Culture - Preliminary Blood No Growth after 120 hours 05/06/20 11:00 Blood Culture - Preliminary Blood No Growth after 48 hours 05/06/20 11:00 Blood Culture - Preliminary Blood No Growth after 48 hours Assessment and Plan Assessment: Assessment #1 acute hypoxic respiratory failure #2 COVID-19 infection #3 paroxysmal atrial fibrillation #4 multiple comorbid conditions Plan #1 decrease the dose of amiodarone in view of the bradycardia #2 increase the dose of Lovenox to be therapeutic #3 consider oral anticoagulation down the line
--- NOTE | 2020-05-09 07:52 | XR ---
EXAMINATION TYPE: XR chest 1V portable DATE OF EXAM: 05/09/2020 COMPARISON: Chest x-ray 05/08/2020 HISTORY: Abnormal chest x-ray, ICU management, tracheostomy tube TECHNIQUE: Single frontal view of the chest is obtained. FINDINGS: Tracheostomy tube is in place, there is a left sided PICC line, distal tip coursing toward s the midline as on prior. No evident pneumothorax. Interstitium is increased. Cardiac mediastinal si lhouette is unchanged. There are overlying leads. Aorta is dense. IMPRESSION: Correlate for interstitial edema, pneumonia
[2020-05-09 07:56] LABS: Glucose,Whole Blood 109 mg/dL (75-99)
[2020-05-09 09:19] LABS: Albumin 1.9 g/dL (3.5-5.0); Calcium 7.6 mg/dL (8.4-10.2); Potassium 4.3 mmol/L (3.5-5.1); Total Bilirubin 0.4 mg/dL (0.2-1.3); Total Protein 4.2 g/dL (6.3-8.2)
--- NOTE | 2020-05-09 10:00 | P.PN ---
Subjective Progress Note Date: 05/09/20 Principal diagnosis: This is a 69-year-old female with: Pneumonia and has hemodialysis dependent ATN. Yesterday dialysis on 05/08/2020 was stable compared to on 05/06/2020 somewhat unsuccessful as she went into the atrial fibrillation episode with rapid ventricular response and fluid removal was abandoned. She remains intubated sedated not on any pressors though. She is on 40% FiO2. She has a trach and PEG She remains somewhat edematouxs, and output 115 mL for the last 24 hours She also has urine culture positive with E. coli and Brittney and staph epidermidis bacteremia possibly contaminant Objective - Vital Signs Vital signs: Vital Signs Temp 97.5 F L 05/09/20 08:00 Pulse 46 L 05/09/20 09:00 Resp 34 H 05/09/20 09:00 BP 117/74 05/09/20 07:00 Pulse Ox 97 05/09/20 09:00 Intake & Output 05/08/20 05/09/20 05/09/20 18:59 06:59 18:59 Intake Total 1199.248 298 347.680 Output Total 610 2305 35 Balance 589.248 -2007 312.680 Weight 122.4 kg Intake: IV 276 276 69 0.9% KVO 240 240 60 Pressure Bag 36 36 9 Intake, IV Titration 217.248 159.680 Amount Dexmedetomidine/0.9% NaCl 17.248 82.752 (Pmx) 400 mcg In Empty Bag 1 bag @ Titrate IV . Q0M PERRY Rx#:[id number] fentaNYL (PF) 1,000 mcg 100 In Sodium Chloride 0.9% 80 ml @ Per Protocol IV . Q0M PERRY Rx#:[id number] propofoL 500 mg In Empty 100 76.928 Bag 1 bag @ Titrate IV . Q0M PERRY Rx#:[id number] Tube Feeding 506 22 44 Other 200 75 Output: Urine 10 105 35 Stool 600 1200 Hemodialysis 1000 Other: Voiding Method Indwelling Catheter Indwelling Catheter Indwelling Catheter # Voids 130 ABP, PAP, CO, CI - Last Documented Arterial Blood Pressure 116/51 On examination she is sedated obtunded on the vent at 45% FiO2 HEENT exam no JVP neck no facial asymmetry Lungs are clear to auscultation fair air entry bilaterally Heart sounds are unremarkable for any murmur rub gallop Abdomen soft nontender extremity exam was moderate edema Neurologically obtunded - Labs CBC & Chem 7: 05/09/20 06:30 05/09/20 06:30 Labs: Abnormal Lab Results - Last 24 Hours (Table) 05/08/20 05/08/20 05/09/20 Range/Units 11:32 16:43 00:11 WBC (3.8-10.6) k/uL RBC (3.80-5.40) m/uL Hgb (11.4-16.0) gm/dL Hct (34.0-46.0) % Plt Count (150-450) k/uL Neutrophils # (1.3-7.7) k/uL Lymphocytes # (1.0-4.8) k/uL Sodium (137-145) mmol/L Carbon Dioxide (22-30) mmol/L BUN (7-17) mg/dL Creatinine (0.52-1.04) mg/dL Glucose (74-99) mg/dL POC Glucose (mg/dL) 115 H 130 H 120 H (75-99) mg/dL Calcium (8.4-10.2) mg/dL ALT (4-34) U/L Total Protein (6.3-8.2) g/dL Albumin (3.5-5.0) g/dL 05/09/20 05/09/20 05/09/20 Range/Units 06:30 06:30 07:55 WBC 19.1 H (3.8-10.6) k/uL RBC 3.11 L (3.80-5.40) m/uL Hgb 9.6 L D (11.4-16.0) gm/dL Hct 28.9 L (34.0-46.0) % Plt Count 136 L (150-450) k/uL Neutrophils # 17.7 H (1.3-7.7) k/uL Lymphocytes # 0.6 L (1.0-4.8) k/uL Sodium 132 L (137-145) mmol/L Carbon Dioxide 19 L (22-30) mmol/L BUN 59 H (7-17) mg/dL Creatinine 3.02 H (0.52-1.04) mg/dL Glucose 114 H (74-99) mg/dL POC Glucose (mg/dL) 109 H (75-99) mg/dL Calcium 7.6 L (8.4-10.2) mg/dL ALT 51 H (4-34) U/L Total Protein 4.2 L (6.3-8.2) g/dL Albumin 1.9 L (3.5-5.0) g/dL Microbiology - Last 24 Hours (Table) 05/04/20 18:49 Blood Culture - Preliminary Blood No Growth after 72 hours 05/03/20 11:55 Blood Culture - Preliminary Blood No Growth after 120 hours 05/06/20 11:00 Blood Culture - Preliminary Blood No Growth after 48 hours 05/06/20 11:00 Blood Culture - Preliminary Blood No Growth after 48 hours Assessment and Plan Assessment: Impression 1. Hemodialysis dependent ATN from: Pneumonia on dialysis. Was dialyzed on 05/06/2020 which was somewhat unstable because of atrial fibrillation but was again dialyzed yesterday on 05/08/2020 without any problems. Urine output 115 m L for the last 24 hours she has edema 2. Mild degree of hyponatremia and hyperkalemia from ATN 3. Mild degree of non-gap and gap acidosis bicarbonate 19 and anion gap of 8 secondary to acute kidney injury 4. Until later dependent respiratory failure from Corvid pneumonia which was positive before but currently is in negative PCR. 5. E. coli and Brittney urine cultures positive. 6. Status post trach and PEG 7. Atrial fibrillation, currently in normal sinus rhythm Recommendation 1. Next dialysis will be tomorrow unless urine output starts picking up. 2. We'll continue to monitor electrolytes and bicarb 3. Continue sodium bicarb via PEG 4. Maintain adequate nutritional support with protein of 1.5 g/kg body area.
--- NOTE | 2020-05-09 11:09 | P.PN ---
Progress Note - Text Progress Note Date: 05/09/20 Patient's tracheostomy is functioning well. There is no significant air leak. PEG tube site is clean. She'll continue receive supportive care.
[2020-05-09 11:40] LABS: Glucose,Whole Blood 138 mg/dL (75-99)
[2020-05-09] MEDS: LORazepam 2 MG/ML INJ IV PRN ×4 (11:43→22:48)
[2020-05-09] MEDS: MULTIVITAMINS, THERA 1 EACH TAB PO SCH (11:47)
[2020-05-09] MEDS: FOLIC ACID 1 MG TAB PO SCH (11:47)
[2020-05-09] MEDS: THIAMINE 100 MG TAB PO SCH (11:47)
--- NOTE | 2020-05-09 12:32 | P.PN ---
Subjective Progress Note Date: 05/09/20 Principal diagnosis: Acute hypoxic respiratory failure secondary to covid 19 pneumonitis This 69-year-old white female patient who was admitted to the hospital on 04/11/2020 when she came in for evaluation of 1 week history of cough, fever, shortness of breath, decreased appetite and intermittent episodes of diarrhea. Patient was diagnosed with COVID 19 pneumonia, this was done via outpatient testing through the health Department. Patient initially presented at [facility], she was hypoxemic with a pulse ox in the 80s and she was placed on high flow oxygen and transferred to the [facility]. CT angiogram of the chest showed no evidence of pulmonary embolism, however it showed evidence of bilateral interstitial infiltrates consistent with COVID 19 pneumonitis. Patient completed her Remdesivir treatment on 04/16/2020, she received 2 units of convalescent plasma, she remains on IV steroids with IV Solu-Medrol. In view of her worsening hypoxemia patient was transferred to the intensive care unit, she is intubated on 04/24/2020 05/02/2020, the patient remains intubated on a mechanical ventilator. She remains on propofol which is running at 35 mcg/kg per minute and the patient is on fentanyl running at 1 g per KG per hour. The patient is well sedated and, comfortable suggest a mechanical ventilator. Her vent settings are essentially the same. The patient is on a VC plus mode with a rate of 32 and FiO2 of 50% with a PEEP of 15 and a tidal volume of 400. Peak airway pressures 31, static pressures probably 38. Blood gas showed a pH of 7.27 with a pCO2 of 51 and pO2 of 69 and the blood is essentially stable and comparable to yesterday's value. The patient has no major secretions. The chest x-ray stable with diffuse breath and pulmonary infiltrates and there is no evidence of pneumothorax. ET tube is in good location. She remains on Solu-Medrol 60 mg every 6 hours inpatient LDH level is down to 792 and the CRP level is down to 16.4 and the d-dimer today is at 3.47. She is afebrile. She has a small amount of diarrhea and fecal management system is in place. Urine output is minimal and the patient is re ceiving dialysis periodically. Her last bout of dialysis was yesterday. This was done successfully. Total of 3 L of ultrafiltration was performed without causing any significant hemodynamic changes. In fact she became slightly hypoxic as the patient was being weaned off the propofol and ultimately propofol was restarted. Triglyceride levels are at 285. She is receiving enteral feeding for nutritional support. She remains on vital high protein at the rate of 27 mL an hour and she is essentially at goal. She weighs was restarted yesterday and there is no significant residuals. No emesis. She was having issues with frequent PVCs and short runs of atrial fibrillation yesterday. Based on that, cardiology restarted the patient on amiodarone drip at 0.5 mg shows and a Cardizem drip has been discontinued. Liver function tests from today shows an AST of 48, ALT of 148 and an alkaline phosphatase of 72. Reevaluated today on 05/03/2020, patient remains intubated and mechanically tonya tilated. She is presently on tidal volume was 420, volume control plus, assist control rate of 32, FiO2 50%, and PEEP is 12. Peak airway pressure is 32, plateau pressure is 25. ABG this morning showed a pO2 of 77 pCO2 of 51 pH of 7.2. 2. Patient remains on propofol is also on fentanyl, both were placed on hold this morning, and soon as the patient was waking up, her blood pressure was in the 200 range systolic. Patient was not awake enough to follow any instructions, hence I recommended that she remains back on propofol and fentanyl. Patient is receiving dialysis through a right hemodialysis catheter in the groin. Patient is receiving enteral feeding/Nepro . Her white count is noted to be elevated today, and her pro calcitonin level was also noted to be a bit elevated, hence I recommended adding Zosyn this will be added empirically, and cultures were ordered. Patient is a good set up for catheter sepsis. Patient was intubated on 04/24/2020, and over the next few days if the patient does not tolerate weaning may have to consider tracheostomy and PEG tube placement. Her ABG remains marginal and her PEEP remains relatively high at 12, FiO2 is at 50%, but she is nowhere near weaning at this point. WBC count today is up to 31.3, hemoglobin is 11.3. Electrolytes showed elevated potassium of 5.9, and the patient had a BUN of 108 creatinine 4.87, she is about to be di alyzed in the next 15 minutes. Inflammatory markers showed LDH of 891 C- reactive protein is 9.7, ferritin is 2220. Chest x-ray continues to show bilateral interstitial infiltrates Reevaluated today on 05/04/2020 patient remains in the ICU, intubated and mechanically ventilated. Patient is on assist control rate of 32, volume control +420, inspiratory time is 0.90 seconds, FiO2 50% and PEEP of 12. ABG showed a pO2 of 73 pCO2 of 44 pH of 7.29. PEEP was decreased down to 10. The other vent settings as noted. Patient is on propofol at 40 mcg/kg/m, fentanyl at 20 mcg/kg/h, his also on IV fluid at KVO, receiving enteral feeding. Patient will likely be dialyzed again depending on her potassium today. Her arterial line does not seem to be functional today, hence a new arterial line was placed in the right radial artery. Chest x-ray continues to show bilateral interstitial infiltrates. Slightly worsening left lower lobe infiltrate, but improving right lower lobe infiltrate. Electrolytes are normal except for potassium of 5.9. BUN is 98 creatinine 4.23. LDH and C-reactive protein are improving compared to yesterday. Blood cultures sputum cultures and urine cultures are pending these were sent yesterday again. Sputum culture so far is showing Brittney albicans. And her urine is showing Brittney and gram-negative bacilli. Patient is being followed by infectious disease on the case. Presently on Zosyn and daptomycin. Reevaluated today on 05/05/2020, patient remains in the ICU, intubated and mechanically ventilated. Patient remains on mechanical ventilation, assist cont rol rate of 32 tidal volume is 420, volume control plus, FiO2 50%, PEEP is 10. I was able to get the PEEP down to 8 today. Patient remains on propofol at 40 mcg/kg/m, she is also on fentanyl, IV fluid at KVO. Patient is having positive blood cultures, and the concern is catheter related sepsis especially with the patient having a dialysis catheter in her right groin, and she has a PICC line. This was addressed by infectious disease on the case, recommended more blood cultures to be drawn from the PICC line and blood cultures to be drawn from the dialysis catheter, in the meantime patient was started on daptomycin. Patient is supposed to undergo tracheostomy and PEG tube placement today. I had a long discussion yesterday with her nephew who is a retired physician, updated on her condition, and he seems to be agreeable with the rest of the family members according to him to proceed with tracheostomy and PEG tube placement. Patient had hemodialysis yesterday, and 2 L were taken off. Again the major concern at this point is the fact that she has E. coli infection in the urine, and she has positive blood cultures what seems to be staph epidermidis. And it is most likely related to catheter related sepsis. Chest x-ray continues to show bilateral interstitial infiltrates/interstitial edema. Reevaluated today on 05/06/2020, patient remains in the ICU, intubated and mechanically ventilated. Patient underwent tracheostomy and PEG tube placement yesterday. She is now on volume control plus mode of mechanical ventilation, rate is 32, tidal volume is 420, inspiratory time is 0.90, FiO2 is 50%, and PEEP is 8. Patient remains on propofol, at 40 mcg/kg/m, fentanyl at 1.5 mcg/kg/h, IV fluid at KVO, and she is undergoing hemodialysis today. More blood cultures were ordered to be done from the PICC line and from her dialysis catheter, May have to seriously consider changing her dialysis catheter to another site, this will be reevaluated by infectious disease on the case, and cultures from the sites are pending. Patient was started and a daptomycin, and her white count is coming down, most recent blood cultures remain negative. Yesterday the patient was dialyzed, 2.5 L were removed, and the plan is to remove 3 L today. Antibiotics hernandez, patient is on Zosyn and daptomycin. ABG today showed a pO2 of 71 pCO2 of 40 pH of 7.33. Electrolytes showed low sodium of 130 slightly elevated potassium of 5.4 BUN is 72 creatinine 3.63. WBC count is coming down to 26.5, hemoglobin is 11.5. Chest x-ray continues to show lower interstitial infiltrates, difficult to tell whether these are interstitial edema related because of her fluid overload and renal failure, or related to her underlying covid 19 pneumonitis. Reevaluated today on 05/07/2020, upon my initial evaluation of the patient, I was notified that the patient is having significant air leak from her tracheostomy. Hence I went ahead and used the bronchoscope, bronchoscope the patient, and over the bronchoscope, the tracheostomy tube was readjusted, and placed about 2.5 cm above the antwon. This was done with direct visualization. Patient was losing significant volume earlier today, however after the adjustment, no further leak was noted. Patient is on assist control rate of 32, tidal volume is 420, FiO2 50%, PEEP of 8. Yesterday patient developed atrial fibrillation with RVR associate with hypotension, this happened as the patient was being weaned from sedatives and narcotics, and the plan was to assess mental status and assess for further weaning if possible. However this was hindered by the fact that the patient developed A. fib with RVR. Today the patient remains on multiple drips including norepinephrine at 0.03 amiodarone at 1 mg drip, she is also on fentanyl, and propofol at 40. ABG today showed a pO2 of 83 pCO2 of 44 pH of 7.30. Remains in A. fib, rate is 104/m, WBC count today is 31.1, hemoglobin is 11.1. Electrolytes are normal however her BUN is 60 creatinine 3.44. Chest x- ray shows coarse perihilar and basilar infiltrates present. Slight improvement compared to previous x-rays. Follow-up blood cultures from 05/04/2020, remain negative. The patient is seen today 05/08/2020 in follow-up in the intensive care unit. She remains on mechanical ventilator and assist control 32, tidal volume 420, FiO2 50% and a PEEP of 8. Morning blood gases revealed a pO2 of 87, pCO2 41, pH 7.29. Tracheostomy tube secured in place. She remains on fentanyl drip at 1.5 mcg/kg/h. Propofol at 35 mcg/kg/m. Amiodarone at 0.5 mg/m. Norepinephrine currently on hold. Being nourished with Nepro at 22 mL per hour which is goal. Antibiotics in the form of Zosyn and daptomycin. Follow-up troponin I screening was negative. She remains on Lovenox, IV Solu-Medrol, bronchodilators. She was given a daily interruption of sedation yesterday and she went into atrial fibrillation with rapid ventricular response. Currently in sinus rhythm. Follow-up blood cultures continue to reveal no growth. Sodium 131. Potassium 5.3. Creatinine 4.18. No plans for hemodialysis today. Chest x-ray continues to reveal massive fluid overload. No significant change from previous. Reevaluated today on 05/09/2020, patient remains in the ICU, remains intubated and mechanically ventilated. Her ventilator settings are assist control rate of 32, tidal volume is 420 FiO2 is down to 45%, PEEP is at 8. ABG showed a pO2 of 84 pCO2 of 36 pH of 7.37. Patient is off fentanyl, she is on propofol at 10 mcg/kg/m, and now on Precedex at 0.7mcg/kg/h. I plan to discontinue propofol, and use Precedex only hoping that her mental status will improve and would be able to assess its fully off narcotics and sedatives. Patient is still requiring hemodialysis. Remains on daptomycin and Zosyn, all blood cultures from 05/03 have been negative so far WBC count is coming down. Chest x-ray continues to show interstitial edema/infiltrates. Will likely improve with aggressive ultrafiltration/dialysis. WBC count is 19.1. Hemoglobin is 9.6. Electrolytes are normal BUN is 59 and creatinine 3.02. Objective - Vital Signs Vital signs: Vital Signs Temp 97.3 F L 05/09/20 12:00 Pulse 53 L 05/09/20 12:00 Resp 23 05/09/20 12:00 BP 117/74 05/09/20 07:00 Pulse Ox 93 L 05/09/20 12:00 Intake & Output 05/08/20 05/09/20 05/09/20 18:59 06:59 18:59 Intake Total 1199.248 298 547.962 Output Total 610 2305 50 Balance 589.248 -2007 497.962 Weight 122.4 kg Intake: IV 276 276 138 0.9% KVO 240 240 120 Pressure Bag 36 36 18 Intake, IV Titration 217.248 169.962 Amount Dexmedetomidine/0.9% NaCl 17.248 82.752 (Pmx) 400 mcg In Empty Bag 1 bag @ Titrate IV . Q0M PERRY Rx#:[id number] fentaNYL (PF) 1,000 mcg 100 In Sodium Chloride 0.9% 80 ml @ Per Protocol IV . Q0M PERRY Rx#:[id number] propofoL 500 mg In Empty 100 87.210 Bag 1 bag @ Titrate IV . Q0M PERRY Rx#:[id number] Tube Feeding 506 22 110 Other 200 130 Output: Urine 10 105 50 Stool 600 1200 Hemodialysis 1000 Other: Voiding Method Indwelling Catheter Indwelling Catheter Indwelling Catheter # Voids 130 ABP, PAP, CO, CI - Last Documented Arterial Blood Pressure 124/50 - Exam Physical Exam: Revealed a 69-year-old female, tracheostomy tube in place and mechanically ventilated. Head: Atraumatic normocephalic. Tracheostomy is intact. No air leak noted today. HEENT: PERRLA,, EOMI, nonicteric. Moist mucous membranes Chest: Symmetrical chest expansion, crackles at the bases persists. Cardiac Exam: Normal S1 and S2, no S3 gallop, no murmur. Abdomen: Soft, nontender, no megaly, no rebound, no guarding, normal bowel sounds. PEG tube is intact. Extremities: No clubbing, 2+ bipedal edema, no cyanosis. Neurological Exam: Unarousable even with deep painful stimuli, patient is on hardly any propofol, 10 mcg/kg/h. Psychiatric: Could not be assessed. Skin: No rashes. - Labs CBC & Chem 7: 05/09/20 06:30 05/09/20 06:30 Labs: Abnormal Lab Results - Last 24 Hours (Table) 05/08/20 05/09/20 05/09/20 Range/Units 16:43 00:11 06:30 WBC 19.1 H (3.8-10.6) k/uL RBC 3.11 L (3.80-5.40) m/uL Hgb 9.6 L D (11.4-16.0) gm/dL Hct 28.9 L (34.0-46.0) % Plt Count 136 L (150-450) k/uL Neutrophils # 17.7 H (1.3-7.7) k/uL Lymphocytes # 0.6 L (1.0-4.8) k/uL Sodium (137-145) mmol/L Carbon Dioxide (22-30) mmol/L BUN (7-17) mg/dL Creatinine (0.52-1.04) mg/dL Glucose (74-99) mg/dL POC Glucose (mg/dL) 130 H 120 H (75-99) mg/dL Calcium (8.4-10.2) mg/dL ALT (4-34) U/L Total Protein (6.3-8.2) g/dL Albumin (3.5-5.0) g/dL 05/09/20 05/09/20 05/09/20 Range/Units 06:30 07:55 11:38 WBC (3.8-10.6) k/uL RBC (3.80-5.40) m/uL Hgb (11.4-16.0) gm/dL Hct (34.0-46.0) % Plt Count (150-450) k/uL Neutrophils # (1.3-7.7) k/uL Lymphocytes # (1.0-4.8) k/uL Sodium 132 L (137-145) mmol/L Carbon Dioxide 19 L (22-30) mmol/L BUN 59 H (7-17) mg/dL Creatinine 3.02 H (0.52-1.04) mg/dL Glucose 114 H (74-99) mg/dL POC Glucose (mg/dL) 109 H 138 H (75-99) mg/dL Calcium 7.6 L (8.4-10.2) mg/dL ALT 51 H (4-34) U/L Total Protein 4.2 L (6.3-8.2) g/dL Albumin 1.9 L (3.5-5.0) g/dL Microbiology - Last 24 Hours (Table) 05/04/20 18:49 Blood Culture - Preliminary Blood No Growth after 72 hours 05/03/20 11:55 Blood Culture - Preliminary Blood No Growth after 120 hours 05/06/20 11:00 Blood Culture - Preliminary Blood No Growth after 48 hours 05/06/20 11:00 Blood Culture - Preliminary Blood No Growth after 48 hours Assessment and Plan Assessment: Impression: Acute hypoxic respiratory failure secondary to covid 19 pneumonitis. Requiring intubation and mechanical ventilation on 04/24/2020, Status post tracheostomy and PEG tube placement on 05/05/2020. Obesity with body index of 35. Elevated d-dimer but negative for pulmonary embolism. Paroxysmal atrial fibrillation with RVR, Acute kidney injury from Covid 19 infection requiring hemodialysis. Elevated liver enzymes secondary to viral pneumonia. Elevated inflammatory markers continue to viral pneumonia. Gram-positive bacteremia, addressed by infectious disease on the case. Could be catheter related sepsis. Malpositioning of tracheostomy requiring readjustment using the bronchoscope. On 05/07/2020 Recommendation: Discontinue propofol and start the patient on Precedex. Keep patient off fentanyl. Continue ventilatory support, FiO2 down to 45% and PEEP is at 8. Continue enteral feeding via PEG tube. Continue mechanical ventilation, GI prophylaxis, nutritional/enteral feeding. All blood cultures have been negative since 05/03. Patient remains on daptomycin and Zosyn. Continue the present cocktail for covid 19 pneumonitis. Finished her full course of remdesivir, and 2 units of convalescent plasma. Continue Solu-Medrol, vitamin C, vitamin D, and zinc. Continue Lovenox. Once the patient's mental status improves, and not requiring much sedation, will start addressing weaning the Critical care time is 33 minutes. Time with Patient: Greater than 30
[2020-05-09] MEDS: DEXMEDETOMIDINE/0.9% NACL(PMX) 400 MCG in EMPTY BAG 1 BAG IV SCH (13:41)
[2020-05-09] MEDS: NOREPINEPHRINE 32 MG in SODIUM CHLORIDE 0.9% 218 ML IV SCH (13:42)
--- NOTE | 2020-05-09 14:20 | P.PN ---
Subjective Ms. Mccoy is a 69-year-old female with a past medical history of hypertension and thyroid disorder admitted to the hospital for acute hypoxic respiratory failure secondary to COVID 19 pneumonia. Patient has extensive bilateral interstitial pneumonia. She is on a low and pulmonary Dr. Mathews is following the patient. Patient received a convalescent plasma, is also on Remdesivir. On 04/17/2020- This morning patient was evaluated in the ICU. Patient is comfortably sitting in a chair states that her breathing is improving gradually. She denies having any chest pain or palpitations. No cough or hemoptysis. She denies having any swelling or for lower extremities. No abdominal pain nausea vomiting or diarrhea. She denies having any dysuria or hematuria, she has a Bryan's catheter in place. On reviewing her vitals temperature 98.1 heart rate 75 is 5817, blood pressure 1:30 bradycardia. Saturating at 96% on a Aervo -60%. On 04/18/2020 - patient was seen and examined in the ICU. Patient is sitting in a chair by the bedside, states that her breathing has worsened compared to yesterday. Patient is on high flow Airvo, saturating in the low 90s. She denies having any chest pain or palpitations. She complains of cough that is nonproductive. Patient had a chest x-ray done showing stable bilateral air space disease. As the patient was having few episodes of tachycardia, she was started on Lopressor this morning. Patient's inflammatory markers are noted to be high. On reviewing her vitals saturating at 90% on high flow Airvo, heart rate 70s to 80s, respiratory rate 20-25, blood pressure 106-67. In reviewing her labs white count of 29.3, hemoglobin 16.8, platelets 369. D-dimer 6.99, LDH 2969, CRP 63.9. On 04/19/2020 - patient is seen and examined in the ICU. She is currently on BiPAP, as her respiratory status has worsened compared to yesterday. Patient denies having any chest pain or palpitations. No abdominal pain nausea vomiting or diarrhea. No dysuria or hematuria. She is on BiPAP 14/6 and 100% FiO2. On reviewing her vitals temperature is 99.2, respiratory rate is 25, heart rate 70, blood pressure 10 9 x 71. Reviewing the labs white count of 27.3, hemoglobin 17.4, platelets 314. Sodium 133, potassium 4.4, chloride 90, bicarbonate 35, BUN 31, creatinine 0.72. Ferritin 3195, CRP 217 and LDH 2747. 04/20/2020 This is a pleasant 69 years old female with multiple medical problems was adm itted for bilateral Covid pneumonia, she is currently on aervo at 90%/60 L of oxygen, saturating 89%. Rest of Vitas looks stable Also she is on BiPAP All the night. She is able to eat and drink, no pressors She is on normal saline at 75 mL/h with adequate urine output Patient is currently ON Medrol 40 mg twice daily, Lovenox 60 mg twice Mary and vitamin C and zinc. She finished her remdisvir and convelecent plasma. 04/21/2020 Patient remains in the ICU bed and respiratory support for her bilateral Covid pneumonia. She still dyspneic especially with exertion and she still needs BiPAP during the day shift. Also she had a fever today of 102.2. Patient is empirically on Zosyn/calcitonin check today showing normal level at 0.07. She has leukocytosis of 29K. I agree with Zosyn and I recommended to continue with that for now. Also patient is on steroids 60 mg every 6 hours. As there is no more significant progress progress in her clinical picture Glucose is 123 and inflammatory markers still elevated 04/22/2020 this is a pleasant 69 yo F who is admitted to the ICU for covid pneumonia, she is still on BiPAP dependant , TNP is started for her nutrition for this reasone. her oxygen saturation is on low 90s% cxr: diffuse interstitial opacities and worsening airspace disease in the left lower lung. consider interstitial edema wbc is sligtly less 26K, she is currently continued on zosyn , and solumedrol 60 mg. and normal saline increased to 150 ml/hr. and lovenox 60 mg BID she finised her Remdisvir and convelescent Plasma. 04/23/2020 Patient looks very tired, she came Off the BiPAP today morning and she was placed back on airvo at 60 L she is back and forth between BiPAP and airvo, however she probably will need BiPAP at night Inflammatory markers and d-dimer increased, ferritin 3100 up to 3700 and d-dimer 3 up to 5 Chest x-ray showing bilateral middle and lower infiltrates with slight improvement Treatments with antibiotics Zosyn, fluconazole was added today. Also she is also on Solu-Medrol 60 mg, normal sling was decreased to 50 mL per hour, Lovenox 60 mg twice daily, TPN and she is on vitamin C and zinc 04/24/2020 Patient today her clinical condition deteriorated, she was hypoxic this morning with oxygen saturation in the 70s percent and she was tachycardic with heart rate 140-150, patient ended up being intubated in the morning and she was in an you onset of A. fib and started on Cardizem drip on 15 mg however her heart rate was still elevated, cardiology team were consulted, blood pressure was on the low normal side. Amiodarone drip was started. Cardiology team and Cardizem drip was shut to 15 mg/h. Also insulin drip for hyperglycemia with sugar more than 300. 04/25/2020 Patient was intubated yesterday for deteriorated respiratory status, ABG showing elevated pCO2 on 496 with acidosis. 7.0 and 7.1. Oxygen saturation is acceptable at 107. She remains on mechanical ventilation managed by pulmonary/critical care team, currently her bruits and draped with before meals at 40 to help with her acidosis. Her creatinine worsened today 0.5 up to 1.3, with potassium elevated as well as 5.5 nephrology team were consulted who ordered insulin/dextrose 50%, sodium bicarb 1 and Lasix 80 mg 1. [employer] recommended hemodialysis and no improvement in 24 hours Chest x-ray showing pneumonia and edema which is stable from yesterday. Sugar improved and we could switch her insulin drip to insulin sliding scale A. fib is improved and converted to sinus rhythm with amiodarone which is switched to [employer] per [employer], She Is Already on Anticoagulation 04/26/20 Patient remains in the ICU sedated and intubated with pulmonary/ critical care team following the case closely. Showing trending down leukocytosis to 20 6.1K. Creatinine up to 2.8, Patient is developing anuria with acute kidney injury, nephrology evaluation is appreciated and hemodialysis is initiated. Chest x-ray showing interstitial infiltrate especially in the mid to lower lungs Echocardiogram showed ejection fraction of 55-60%, and atrial fibrillation i mproved yesterday with amiodarone She remains on Solu-Medrol, Zosyn and fluconazole, normal sinus 50 and vitamin C and zinc Lovenox dose was adjusted to renal function down to 50 mg daily Prognosis remains guarded 04/27/2020 Patient with bilateral: With pneumonia that her purse and eventually got i ntubated, pulmonary/critical care team and several consultants are following the case, vent management as per pulmonary team. She has leukocytosis of 13.8 K. Creatinine today is 3.37 Patient undergoing hemodialysis for the last 2-3 days for acute kidney injury and [facility] Patient A. fib heart rate becomes uncontrolled today and her amiodarone to switch to a drip. Other medication including Solu-Medrol 60 mg, vitamin C and zinc, Zosyn and fluconazole, she is on normal saline at 50 mL/h and Lovenox dose dropped to 30 mg daily 04/28/2020 Patient remains intubated and sedated in the ICU, followed closely by critical care team. Vital showing tachycardia and tachypnea. WBC is 30 3.5K. Cre atinine 3.8, sodium 134. Sugar is controlled. Inflammatory markers are elevated. She is undergoing hemodialysis today Chest x-ray from today showing no change from last one yesterday Medication-hernandez he remains on Solu-Medrol, Zosyn, 30 mg of Lovenox daily which is renal dose and amiodarone drip. Normal saline at 50 mm was discontinued today 04/29/2020 This is a pleasant 69 years old female with bilateral, with pneumonia. Patient remains in the ICU sedated and intubated with pulmonary/critical care team following the case closely. Normal sedation holiday for the patient currently She already finished her treatment with remdesivir and convalescent plasma, and currently she is on vitamin C and zinc. She was on steroids in the form of high dose of Solu-Medrol 60 mg and Zosyn and fluconazole for possible bacteria and fungal infection associated with viral infection. Patient course was complicated by renal failure and new or so she underwent hemodialysis, last HD was yesterday, she is kept on renal dose of Lovenox 30 mg daily. Other complication is atrial fibrillation with RVR which is currently controlled with oral amiodarone and low-dose of Cardizem drip. Patient condition remains critical and she kept on mechanical ventilation with close monitoring Procalcitonin is unchanged yesterday at 0.39 compared to one week ago at 0.39. We'll order another test tomorrow 04/30/2020 Patient is seen and evaluated and follow-up continues to remain closely monitored in the ICU. Patient continues to be on a mechanical ventilator intubated and sedated currently off paralytics. Patient being followed by multiple medical consultations including cardiology, pulmonary, nephrology. Patient currently receiving hemodialysis for ultrafiltration and became extremely hypotensive maxing out on pressors and dialysis was aborted. Patient prognosis is extremely guarded and poor at this time. Patient continues to be on IV steroids along with Lovenox vitamin C and D and zinc supplements and will continue. Patient is also maintained on IV antibiotics in the form of Zosyn and vancomycin being added. Patient currently off of IV amiodarone and IV Cardizem and transitioned to oral amiodarone and will continue at this time. Chest x-ray continues to show interstitial pneumonia with bilateral basilar infiltrates and tiny effusions. She also had an abdominal x-ray showing nonspecific abdomen with no diagnostic evidence of obstruction. White blood count today is 27.9, hemoglobin is stable at 12.7, d-dimer is elevated although slowly trending down at 3.04, current sodium is 129, potassium is 5.9, BUN is 103 with a creatinine of 4.97. Attempts at ultrafiltration today his potassium is elevated. Nephrology is following closely. 05/01/20 Patient remains in the ICU intubated on mechanical ventilation with pulmonary/critical care team following closely. Patient today underwent sedation holiday and into hours she started becoming agitated and developed atrial fibrillation's with RVR, she has to be placed back on amiodarone drip and Cardizem drip 10 mg per hour before it was converted to sinus rhythm again Currently she is tachypneic with a breathing rate around 32. She is saturating 91% on FiO2 of 60% Leukocytosis 27.9 yesterday and 24.6K today. D-dimer stable at 3.7 so she kept on the same dose of Lovenox Inflammatory markers including LDH, protein and C-reactive protein went up slightly today. Patient remains anuric and undergoing hemodialysis She remains on Zosyn and fluconazole, she got 2 doses of IV vancomycin yesterday and today. Also she is on zinc and vitamin C, Lovenox 30 mg daily. Diflucan was stopped 05/02/2020 Patient remains intubated and sedated in the ICU was followed closely by pulmonary/critical care team and for vent management. Patient also with A. fib on several occasions needing Cardizem and amiodarone, cardiology following the patient Patient is still undergoing hemodialysis for anuria and acute kidney injury, nephrology team on the case x-ray showed improvement bibasilar infiltrates She is on some Medrol 60 mg daily, antibiotics were stopped 2 days ago. She is also on Lovenox 30 mg daily, vitamin C and zinc 05/03/2020 Patient is seen this morning currently remains in the ICU receiving hemodialysis today. Multiple medical consultations following. Patient remains on mechanical vent and is intubated and sedated and will continue at this time. D-dimer is elevated at 5.50, sodium is 132, potassium is 5.9, BUN is 108, current creatinine is 4.87. White blood count is 31.3 and hemoglobin is 11.3. Patient blood pressure is elevated as well and has been continuing with daily dialysis. Chest x-rays today show interstitial infiltrates or edema in the mid and lower lungs continue with slight improvement on the left. Patient remains on IV antibiotics in the form of Zosyn and will continue at this time. Infectious disease is following as well. 05/04/2020 Patient is seen in follow-up currently remains in the ICU. Surgical consult was placed for trach and PEG tube placement as patient continues to be on tube feedings and continues to be on a mechanical vent. Dimer elevated at 7.38. Nephrology also following as patient has been receiving hemodialysis and current creatinine today is 4.23 with a BUN of 98 and potassium is 5.9. Patient will be made nothing by mouth and tube feedings held for surgery tomorrow. Family continues to wish for full CODE STATUS. Sputum cultures preliminary showing Brittney albicans and urine showing gram-negative bacilli with Brittney albicans. Infectious disease is following. Patient is maintained on IV antibiotics in the form of Zosyn and daptomycin being added. Will await culture finalization. 05/05/2020 Patient continues to be in the ICU currently on a mechanical vent awaiting PEG tube and trach placement today with surgery. Multiple medical consultations f ollowing including nephrology. Potassium was 5.5 this morning and will correct prior to surgery patient will be receiving hemodialysis this afternoon. Inflammatory markers trending down. Patient is maintained on IV antibiotics in the form of daptomycin along with Zosyn and will continue. Tube feedings on hold this morning for surgery. 05/06/2020 Patient is status post tracheostomy and PEG tube placement and will initiate tube feeds this afternoon per surgery. Patient is currently receiving hemodialysis and nephrology following closely. Patient to continue IV daptomycin and Zosyn. Infectious disease is following. Urine cultures finalized showing E. coli and Brittney. Patient's blood pressures have been on the lower end and elevated heart rate and cardiology following closely. Patient currently on levophed and oral amiodarone. Prognosis remains extremely poor and guarded. 05/07/2020 Patient is seen and evaluated this morning currently being closely monitored in the ICU remains on the mechanical vent via tracheostomy along with PEG tube feedings. Patient also continues to be on levophed and once again on amiodarone drip as patient developed atrial fibrillation with RVR yesterday. Multiple medical consultations following. Patient was seen and evaluated by anesthesia as patient continued to have an air leak that was present around the tracheostomy and patient underwent bronchoscope with Dr. Motta today. Patient continues to have generalized edema. Patient is maintained on hemodialysis although unable to tolerate today. Patient has resumed tube feedings and t olerating thus far. 05/08/2020 Patient remains on ventilatory support presently on norepinephrine which is being weaned off patient is on amiodarone dripand improvement at this time. Patient is being weaned off sedatives and narcotics. White blood cell count still remains elevated. Patient is presently on empiric Zosyn and and daptomycin patient is also on high-dose steroids at this time. 05/09/2020 Patient is still on ventilatory support assist-control ventilation FiO2 of 45% PEEP of 8 patient is off Flovent fentanyl and propofol was started on Precedex patient is still requiring hemodialysis. Chest x-ray showing interstitial infiltrates Review of systems: Unable to obtain as patient's currently intubated and sedated Objective - Vital Signs Vital signs: Vital Signs Temp 97.3 F L 05/09/20 12:00 Pulse 47 L 05/09/20 13:00 Resp 32 H 05/09/20 13:00 BP 117/74 05/09/20 07:00 Pulse Ox 95 05/09/20 13:00 Intake & Output 05/08/20 05/09/20 05/09/20 18:59 06:59 18:59 Intake Total 1199.248 298 592.962 Output Total 610 2305 50 Balance 589.248 -2006 542.962 Weight 122.4 kg Intake: IV 276 276 161 0.9% KVO 240 240 140 Pressure Bag 36 36 21 Intake, IV Titration 217.248 169.962 Amount Dexmedetomidine/0.9% NaCl 17.248 82.752 (Pmx) 400 mcg In Empty Bag 1 bag @ Titrate IV . Q0M PERRY Rx#:[id number] fentaNYL (PF) 1,000 mcg 100 In Sodium Chloride 0.9% 80 ml @ Per Protocol IV . Q0M PERRY Rx#:[id number] propofoL 500 mg In Empty 100 87.210 Bag 1 bag @ Titrate IV . Q0M PERRY Rx#:[id number] Tube Feeding 506 22 132 Other 200 130 Output: Urine 10 105 50 Stool 600 1200 Hemodialysis 1000 Other: Voiding Method Indwelling Catheter Indwelling Catheter Indwelling Catheter # Voids 130 ABP, PAP, CO, CI - Last Documented Arterial Blood Pressure 134/58 - Exam Physical Exam: Revealed a 69-year-old female , intubated and mechanically ventilated. Head: Atraumatic normocephalic. Tracheostomy is intact. Position today via bronchoscope. HEENT: PERRLA,, EOMI, nonicteric. Moist mucous membranes Chest: [Symmetrical chest expansion, crackles at the bases persists. Cardiac Exam: [Normal S1 and S2, no S3 gallop, no murmur.] Abdomen: [Soft, nontender, no megaly, no rebound, no guarding, normal bowel sounds.] PEG tube is intact. Extremities: [No clubbing, 2+ bipedal edema, no cyanosis.] Neurological Exam: [Not assessed, patient is sedated, she is on propofol and fentanyl. These certainly placed on hold today, and addressed mental status if possible. Psychiatric: Could not be assessed. Skin: No rashes. Note: Because of COVID 19 isolation, some of the history and physical exam findings are indirect and obtained from nursing staff, and other physician examinations to avoid unnecessary contact with the patient. - Labs CBC & Chem 7: 05/09/20 06:30 05/09/20 06:30 Labs: Abnormal Lab Results - Last 24 Hours (Table) 05/08/20 05/09/20 05/09/20 Range/Units 16:43 00:11 06:30 WBC 19.1 H (3.8-10.6) k/uL RBC 3.11 L (3.80-5.40) m/uL Hgb 9.6 L D (11.4-16.0) gm/dL Hct 28.9 L (34.0-46.0) % Plt Count 136 L (150-450) k/uL Neutrophils # 17.7 H (1.3-7.7) k/uL Lymphocytes # 0.6 L (1.0-4.8) k/uL Sodium (137-145) mmol/L Carbon Dioxide (22-30) mmol/L BUN (7-17) mg/dL Creatinine (0.52-1.04) mg/dL Glucose (74-99) mg/dL POC Glucose (mg/dL) 130 H 120 H (75-99) mg/dL Calcium (8.4-10.2) mg/dL ALT (4-34) U/L Total Protein (6.3-8.2) g/dL Albumin (3.5-5.0) g/dL 05/09/20 05/09/20 05/09/20 Range/Units 06:30 07:55 11:38 WBC (3.8-10.6) k/uL RBC (3.80-5.40) m/uL Hgb (11.4-16.0) gm/dL Hct (34.0-46.0) % Plt Count (150-450) k/uL Neutrophils # (1.3-7.7) k/uL Lymphocytes # (1.0-4.8) k/uL Sodium 132 L (137-145) mmol/L Carbon Dioxide 19 L (22-30) mmol/L BUN 59 H (7-17) mg/dL Creatinine 3.02 H (0.52-1.04) mg/dL Glucose 114 H (74-99) mg/dL POC Glucose (mg/dL) 109 H 138 H (75-99) mg/dL Calcium 7.6 L (8.4-10.2) mg/dL ALT 51 H (4-34) U/L Total Protein 4.2 L (6.3-8.2) g/dL Albumin 1.9 L (3.5-5.0) g/dL Microbiology - Last 24 Hours (Table) 05/06/20 11:00 Blood Culture - Preliminary Blood No Growth after 72 hours 05/06/20 11:00 Blood Culture - Preliminary Blood No Growth after 72 hours 05/04/20 18:49 Blood Culture - Preliminary Blood No Growth after 72 hours 05/03/20 11:55 Blood Culture - Preliminary Blood No Growth after 120 hours Assessment and Plan Plan: Acute hypoxic respiratory failure secondary to covid 19 pneumonitis. Requiring intubation and mechanical ventilation on 04/24/2020, Status post tracheostomy and PEG tube placement on 05/05/2020. Obesity with body index of 35. Elevated d-dimer but negative for pulmonary embolism. Paroxysmal atrial fibrillation with RVR, Acute kidney injury from Covid 19 infection requiring hemodialysis. Elevated liver enzymes secondary to viral pneumonia. Elevated inflammatory markers continue to viral pneumonia. Gram-positive bacteremia, addressed by infectious disease on the case. Could be catheter related sepsis. Malpositioning of tracheostomy requiring readjustment using the bronchoscope. On 05/07/2020 Plan: Continue ventilatory support, patient is on Precedex Continue enteral feeding via PEG tube. Continue to monitor in the ICU. Continue mechanical ventilation, GI prophylaxis, nutritional/enteral feeding. Follow-up on the blood cultures and the cultures drawn from the PICC line and from the dialysis cath. Continue the present cocktail for covid 19 pneumonitis. Finished her full course of remdesivir, and to units of convalescent plasma. Continue Solu-Medrol, presently on 60 mg IV push every 6 hours. and continue, vitamin C, vitamin D, and zinc. Continue Lovenox. May consider increasing the dose since the patient is having atrial fibrillation and RVR. Remains critically ill, Weaning from sedation for assessment of mental status yesterday failed, patient developed atrial fibrillation with RVR, she also developed hypotension requiring norepinephrine, and she is now on norepinephrine and amiodarone drip. , Continue with daptomycin, Zosyn
[2020-05-09 15:51] LABS: Glucose,Whole Blood 120 mg/dL (75-99)
[2020-05-09] MEDS ORDERED: DEXMEDETOMIDINE/0.9% NACL(PMX) 400 MCG in EMPTY BAG 1 BAG IV SCH (16:15)
[2020-05-09 20:13] LABS: Glucose,Whole Blood 125 mg/dL (75-99)
--- NOTE | 2020-05-09 23:15 | PN ---
PROGRESS NOTE DATE OF SERVICE: 05/09/2020 REASON FOR FOLLOWUP: Leukocytosis, bacteremia and pneumonia. INTERVAL HISTORY: The patient is currently afebrile. The patient is hemodynamically stable. FiO2 is currently 45%. The patient currently has significant diarrhea with fecal management system. No other change has been reported by nursing staff. PHYSICAL EXAMINATION: Blood pressure 117/74 with a pulse of 58, temperature 97.4. She is 93% on 45% FiO2. General description is an elderly female intubated on the vent. Respiratory system: Unlabored breathing with decreased breath sounds in the base, with no wheeze. Heart S1, S2. Regular rate and rhythm. Abdomen soft, no tenderness. LABS: Hemoglobin 9.6, white count 19.1, BUN of 59, creatinine 3.02. DIAGNOSTIC IMPRESSION AND PLAN: 1. Patient with positive blood culture with Staph epi in this patient who does have groin catheter for dialysis and PICC line. Repeat culture negative. Continue with short course of daptomycin. 2. Patient with acute respiratory failure likely from Covid 19 infection, concern for secondary bacterial pneumonia. Sputum culture has been negative. Received about 10 days of Zosyn in view of significant diarrhea could be associated to it, Rocephin will be discontinued. The patient will be monitored closely. Continue supportive care. MMODL / IJN: [id number] / KELSIE
[2020-05-10 00:20] LABS: Glucose,Whole Blood 130 mg/dL (75-99)
[2020-05-10] MEDS: methylPREDNISolone SOD SUCCI 125 MG/2 ML VIAL IV SCH ×2 (01:12→07:30)
[2020-05-10] MEDS: INSULIN ASPART (NovoLOG) 100 UNIT/ML VIAL SQ SCH ×8 (01:51→23:41)
[2020-05-10] MEDS: LORazepam 2 MG/ML INJ IV PRN ×2 (03:22→07:30)
[2020-05-10 05:37] LABS: ABG Base Excess -6.6 mmol/L; ABG HCO3 19 mmol/L (21-25); ABG Oxygen Saturation 96.3 % (94-97); ABG PCO2 33 mmHg (35-45); ABG PH 7.37 (7.35-7.45); ABG PO2 85 mmHg (83-108); ABG TCO2 20 mmol/L (19-24); Allen Test Performed? Yes
[2020-05-10 06:01] LABS: Basophils % (A) 0 %; Eosinophils # (A) 0.1 k/uL (0-0.7); Eosinophils % (A) 0 %; HCT 29.5 % (34.0-46.0); Lymphocytes # (A) 0.5 k/uL (1.0-4.8); Lymphocytes % (A) 3 %; MCH 31.1 pg (25.0-35.0); MCHC 33.8 g/dL (31.0-37.0); MCV 92.2 fL (80.0-100.0); Mean Platelet Volume 8.7; Monocytes # (A) 0.6 k/uL (0-1.0); Monocytes % (A) 3 %; Neutrophils # (A) 18.8 k/uL (1.3-7.7); Neutrophils % (A) 94 %; Platelet Count 132 k/uL (150-450); RDW 13.8 % (11.5-15.5); WBC 20.1 k/uL (3.8-10.6)
[2020-05-10 06:14] LABS: Calcium 7.6 mg/dL (8.4-10.2); Potassium 4.4 mmol/L (3.5-5.1)
[2020-05-10] MEDS: LEVOTHYROXINE 50 MCG TAB PO SCH (07:31)
[2020-05-10 07:42] LABS: Glucose,Whole Blood 95 mg/dL (75-99)
[2020-05-10] MEDS: ALBUTEROL HFA INHALER INHALATION SCH ×4 (07:48→19:22)
--- NOTE | 2020-05-10 08:00 | P.PN ---
Subjective Patient is seen in follow-up for acute kidney injury, currently hemodialysis dependent. She is receiving tube feeding. Off vasopressors. Oliguric. Last hemodialysis May 08 with 1 L ultrafiltration. Vital signs are stable. General: Tracheostomy noted. HEENT: Neck is without jugular venous distension. LUNGS: Breath sounds decreased. HEART: Rate and Rhythm are regular. ABDOMEN: Soft. EXTREMITITES: 2+ edema. Objective - Vital Signs Vital signs: Vital Signs Temp 97.7 F 05/10/20 04:00 Pulse 49 L 05/10/20 07:00 Resp 13 05/10/20 07:00 BP 148/71 05/10/20 07:00 Pulse Ox 92 L 05/10/20 07:00 Intake & Output 05/09/20 05/10/20 05/10/20 18:59 06:59 18:59 Intake Total 922.962 253 23 Output Total 75 660 Balance 847.962 -407 23 Weight 123.4 kg Intake: IV 299 253 23 0.9% KVO 260 220 20 Pressure Bag 39 33 3 Intake, IV Titration 169.962 Amount Dexmedetomidine/0.9% NaCl 82.752 (Pmx) 400 mcg In Empty Bag 1 bag @ Titrate IV . Q0M PERRY Rx#:[id number] propofoL 500 mg In Empty 87.210 Bag 1 bag @ Titrate IV . Q0M PERRY Rx#:[id number] Tube Feeding 264 Other 190 Output: Urine 75 60 Stool 600 Other: Voiding Method Indwelling Catheter Indwelling Catheter ABP, PAP, CO, CI - Last Documented Arterial Blood Pressure 150/70 - Labs CBC & Chem 7: 05/10/20 05:55 05/10/20 05:55 Labs: Abnormal Lab Results - Last 24 Hours (Table) 05/09/20 05/09/20 05/09/20 Range/Units 06:30 07:55 11:38 WBC (3.8-10.6) k/uL RBC (3.80-5.40) m/uL Hgb (11.4-16.0) gm/dL Hct (34.0-46.0) % Plt Count (150-450) k/uL Neutrophils # (1.3-7.7) k/uL Lymphocytes # (1.0-4.8) k/uL ABG pCO2 (35-45) mmHg ABG HCO3 (21-25) mmol/L Sodium 132 L (137-145) mmol/L Carbon Dioxide 19 L (22-30) mmol/L BUN 59 H (7-17) mg/dL Creatinine 3.02 H (0.52-1.04) mg/dL Glucose 114 H (74-99) mg/dL POC Glucose (mg/dL) 109 H 138 H (75-99) mg/dL Calcium 7.6 L (8.4-10.2) mg/dL ALT 51 H (4-34) U/L Total Protein 4.2 L (6.3-8.2) g/dL Albumin 1.9 L (3.5-5.0) g/dL 05/09/20 05/09/20 05/10/20 Range/Units 15:50 20:11 00:19 WBC (3.8-10.6) k/uL RBC (3.80-5.40) m/uL Hgb (11.4-16.0) gm/dL Hct (34.0-46.0) % Plt Count (150-450) k/uL Neutrophils # (1.3-7.7) k/uL Lymphocytes # (1.0-4.8) k/uL ABG pCO2 (35-45) mmHg ABG HCO3 (21-25) mmol/L Sodium (137-145) mmol/L Carbon Dioxide (22-30) mmol/L BUN (7-17) mg/dL Creatinine (0.52-1.04) mg/dL Glucose (74-99) mg/dL POC Glucose (mg/dL) 120 H 125 H 130 H (75-99) mg/dL Calcium (8.4-10.2) mg/dL ALT (4-34) U/L Total Protein (6.3-8.2) g/dL Albumin (3.5-5.0) g/dL 05/10/20 05/10/20 05/10/20 Range/Units 05:12 05:55 05:55 WBC 20.1 H (3.8-10.6) k/uL RBC 3.20 L (3.80-5.40) m/uL Hgb 10.0 L (11.4-16.0) gm/dL Hct 29.5 L (34.0-46.0) % Plt Count 132 L (150-450) k/uL Neutrophils # 18.8 H (1.3-7.7) k/uL Lymphocytes # 0.5 L (1.0-4.8) k/uL ABG pCO2 33 L (35-45) mmHg ABG HCO3 19 L (21-25) mmol/L Sodium 134 L (137-145) mmol/L Carbon Dioxide 17 L (22-30) mmol/L BUN 77 H (7-17) mg/dL Creatinine 3.59 H (0.52-1.04) mg/dL Glucose (74-99) mg/dL POC Glucose (mg/dL) (75-99) mg/dL Calcium 7.6 L (8.4-10.2) mg/dL ALT (4-34) U/L Total Protein (6.3-8.2) g/dL Albumin (3.5-5.0) g/dL Microbiology - Last 24 Hours (Table) 05/04/20 18:49 Blood Culture - Preliminary Blood No Growth after 96 hours 05/03/20 11:55 Blood Culture - Final Blood No Growth after 144 hours 05/06/20 11:00 Blood Culture - Preliminary Blood No Growth after 72 hours 05/06/20 11:00 Blood Culture - Preliminary Blood No Growth after 72 hours Assessment and Plan Plan: Assessment: 1. Acute kidney injury secondary to ATN secondary to hypotension, hemodynamic instability and infection. Started on hemodialysis April 26. Remains oliguric. 2. Acute hypercapnic/hypoxic respiratory failure status post tracheostomy. 3. Metabolic acidosis secondary to acute kidney injury. Maintained on oral bicarbonate. 4. COVID-19 infection. PCR from May 07 negative. 5. A. fib with RVR maintained on Cardizem and amiodarone. 6. Hyponatremia secondary to acute kidney injury. Hypervolemic. 7. UTI urine culture positive for E. coli and Brittney maintained on antibiotics. Plan: Hemodialysis today with ultrafiltration as tolerated. Maintain tube feeding. Continue to monitor renal function and urine output. Monitor for renal recovery.
[2020-05-10] MEDS: FAMOTIDINE 20 MG TAB OG-TUBE SCH (08:31)
[2020-05-10] MEDS: CHOLECALCIFEROL 25 MCG (1000 IU) TABLET PO SCH (08:31)
[2020-05-10] MEDS: ASCORBIC ACID 500 MG TAB PO SCH (08:31)
[2020-05-10] MEDS: ENOXAPARIN 30 MG/0.3 ML SYRINGE SQ SCH ×2 (08:31→20:55)
[2020-05-10] MEDS: AMIODARONE 200 MG TAB PO SCH ×2 (08:31→20:55)
[2020-05-10] MEDS: CHLORHEXIDINE GLUCONATE 15 ML CUP MUCOUS MEM SCH ×2 (08:31→20:55)
[2020-05-10] MEDS: ZINC SULFATE 220 MG CAP PO SCH (08:31)
[2020-05-10] MEDS: SODIUM BICARBONATE TAB 650 MG TAB PO SCH ×4 (08:31→20:55)
--- NOTE | 2020-05-10 08:33 | XR ---
EXAMINATION TYPE: XR chest 1V portable DATE OF EXAM: 05/10/2020 HISTORY: Shortness of breath. COMPARISON: 05/09/2020 TECHNIQUE: Single view of the chest is submitted. FINDINGS: Demonstrated are scattered senescent parenchymal change. Reticulonodular infiltrates are seen bilaterally. Patchy density left lower lobe. Tracheostomy tube i s in place. The heart is stable. Hilar and mediastinal structures are within normal limits. Degenerative changes are seen of the dorsal spine. IMPRESSION: 1. Reticulonodular infiltrates are seen bilaterally. Patchy density left lower lobe.
[2020-05-10] MEDS: QUEtiapine 50 MG TAB PO SCH ×2 (08:35→20:55)
[2020-05-10] MEDS ORDERED: predniSONE 10 MG TAB PO SCH (09:00)
[2020-05-10] MEDS: ALPRAZolam 0.25 MG TAB PO PRN ×2 (09:07→20:55)
[2020-05-10] MEDS ORDERED: LORazepam 2 MG/ML INJ ONE (09:13)
[2020-05-10] MEDS ORDERED: LORazepam 2 MG/ML INJ IV STA (09:24)
--- NOTE | 2020-05-10 10:14 | P.PN ---
Subjective Progress Note Date: 05/10/20 Principal diagnosis: COVID 19 pneumonia 69-year-old female admitted back on 04/11/2020. She was transferred down from [facility]. She was admitted with a diagnosis of acute hypoxemic respiratory failure secondary to COVID pneumonia. Currently, she is on BiPAP with an IPAP of 14 and an EPAP of 6 and 100% or on AIRVO, at 60 L/m or an FiO2 of 90%. She is also on saline IV at 30 mL an hour. That will be increased up to 75 mL an hour. She's doing about the same today as yesterday. She did receive redesivir for 5 days and 2 doses of convalescent plasma. The patient has a history of nicotine dependence, obesity, and was negative for pulmonary embolism. The patient's chest x-ray is stable today. She has not gotten much better nor has she gotten much worse. She remains in the intensive care unit. She's in room 257. Progress note dated 03/09/2021. This is a 69-year-old female admitted back on 04/11/2020. She was admitted with a diagnosis of acute hypoxemic respiratory failure secondary to COVID 19 pneumonia. The patient was intubated on 04/24/2020, and because of failure to wean from mechanical ventilation, had a tracheostomy performed on May 05, along with a placement of a PEG tube. Currently, the patient remains on the mechanical ventilator. She is on the volume assist control modality with a rate of 32, breathing 38 times a minute, tidal volume 420, FiO2 of 45%, and PEEP of 8. Arterial blood gases show a PaO2 of 85, a PaCO2 of 33, and a pH of 7.37. Currently, the patient's getting saline at 20 mL an hour, dexmedetomidine, at 0 .6 mcg/kg/h, and Nepro at 22 mL now with a goal of 22 mL an hour. The patient is hemodialysis dependent. She currently remains on daptomycin and Zosyn. Today, the patient's Ativan IV was discontinued in favor of oral Xanax. We will add a fentanyl patch at 15 g every 72 hours, and also start the patient on Seroquel. The patient should be considered for transfer to long-term acute care (LTAC). The patient has a history of nicotine dependence, obesity, and was negative for pulmonary embolism. She did receive remdesivir, and convalescent plasma. Objective - Vital Signs Vital signs: Vital Signs Temp 97.7 F 05/10/20 04:00 Pulse 49 L 05/10/20 07:00 Resp 13 05/10/20 07:00 BP 148/71 05/10/20 07:00 Pulse Ox 92 L 05/10/20 07:00 Intake & Output 05/09/20 05/10/20 05/10/20 18:59 06:59 18:59 Intake Total 922.962 253 23 Output Total 75 660 Balance 847.962 -407 23 Weight 123.4 kg Intake: IV 299 253 23 0.9% KVO 260 220 20 Pressure Bag 39 33 3 Intake, IV Titration 169.962 Amount Dexmedetomidine/0.9% NaCl 82.752 (Pmx) 400 mcg In Empty Bag 1 bag @ Titrate IV . Q0M PERRY Rx#:[id number] propofoL 500 mg In Empty 87.210 Bag 1 bag @ Titrate IV . Q0M PERRY Rx#:[id number] Tube Feeding 264 Other 190 Output: Urine 75 60 Stool 600 Other: Voiding Method Indwelling Catheter Indwelling Catheter ABP, PAP, CO, CI - Last Documented Arterial Blood Pressure 150/70 - Exam Sedated, intubated, tracheostomy tube in place. On the mechanical ventilator.. HEENT examination is grossly unremarkable. Neck supple. Full range of motion. No adenopathy thyromegaly or neck vein distention. Midline tracheostomy noted. Cardiovascular examination reveals regular rhythm rate. S1-S2 normal. No S3 or S4. No discernible murmur noted. Heart sounds distant. Heart rate 60 bpm. Lungs reveal diffuse bilateral rhonchi. Breath sounds equal. No wheezes. No crackles. Abdomen soft bowel sounds are heard. No masses or tenderness. Extremities are intact. Mild edema. No cyanosis or clubbing. Skin is without rash or lesion. Multiple areas of ecchymoses. Neurologic examination is difficult to assess given her current level of sedatio n. - Labs CBC & Chem 7: 05/10/20 05:55 05/10/20 05:55 Labs: Abnormal Lab Results - Last 24 Hours (Table) 05/09/20 05/09/20 05/09/20 Range/Units 06:30 11:38 15:50 WBC (3.8-10.6) k/uL RBC (3.80-5.40) m/uL Hgb (11.4-16.0) gm/dL Hct (34.0-46.0) % Plt Count (150-450) k/uL Neutrophils # (1.3-7.7) k/uL Lymphocytes # (1.0-4.8) k/uL ABG pCO2 (35-45) mmHg ABG HCO3 (21-25) mmol/L Sodium 132 L (137-145) mmol/L Carbon Dioxide 19 L (22-30) mmol/L BUN 59 H (7-17) mg/dL Creatinine 3.02 H (0.52-1.04) mg/dL Glucose 114 H (74-99) mg/dL POC Glucose (mg/dL) 138 H 120 H (75-99) mg/dL Calcium 7.6 L (8.4-10.2) mg/dL ALT 51 H (4-34) U/L Total Protein 4.2 L (6.3-8.2) g/dL Albumin 1.9 L (3.5-5.0) g/dL 05/09/20 05/10/20 05/10/20 Range/Units 20:11 00:19 05:12 WBC (3.8-10.6) k/uL RBC (3.80-5.40) m/uL Hgb (11.4-16.0) gm/dL Hct (34.0-46.0) % Plt Count (150-450) k/uL Neutrophils # (1.3-7.7) k/uL Lymphocytes # (1.0-4.8) k/uL ABG pCO2 33 L (35-45) mmHg ABG HCO3 19 L (21-25) mmol/L Sodium (137-145) mmol/L Carbon Dioxide (22-30) mmol/L BUN (7-17) mg/dL Creatinine (0.52-1.04) mg/dL Glucose (74-99) mg/dL POC Glucose (mg/dL) 125 H 130 H (75-99) mg/dL Calcium (8.4-10.2) mg/dL ALT (4-34) U/L Total Protein (6.3-8.2) g/dL Albumin (3.5-5.0) g/dL 05/10/20 05/10/20 Range/Units 05:55 05:55 WBC 20.1 H (3.8-10.6) k/uL RBC 3.20 L (3.80-5.40) m/uL Hgb 10.0 L (11.4-16.0) gm/dL Hct 29.5 L (34.0-46.0) % Plt Count 132 L (150-450) k/uL Neutrophils # 18.8 H (1.3-7.7) k/uL Lymphocytes # 0.5 L (1.0-4.8) k/uL ABG pCO2 (35-45) mmHg ABG HCO3 (21-25) mmol/L Sodium 134 L (137-145) mmol/L Carbon Dioxide 17 L (22-30) mmol/L BUN 77 H (7-17) mg/dL Creatinine 3.59 H (0.52-1.04) mg/dL Glucose (74-99) mg/dL POC Glucose (mg/dL) (75-99) mg/dL Calcium 7.6 L (8.4-10.2) mg/dL ALT (4-34) U/L Total Protein (6.3-8.2) g/dL Albumin (3.5-5.0) g/dL Microbiology - Last 24 Hours (Table) 05/04/20 18:49 Blood Culture - Preliminary Blood No Growth after 96 hours 05/03/20 11:55 Blood Culture - Final Blood No Growth after 144 hours 05/06/20 11:00 Blood Culture - Preliminary Blood No Growth after 72 hours 05/06/20 11:00 Blood Culture - Preliminary Blood No Growth after 72 hours Assessment and Plan Assessment: COVID 19 pneumonia/pneumonitis, with acute hypoxemic respiratory failure, status post intubation on April 24, with failure to wean, and tracheostomy and PEG tube placement on 05/05/2020. Paroxysmal atrial fibrillation with RVR. Acute kidney injury secondary to COVID 19 infection, currently hemodialysis dependent. Elevated liver enzymes, secondary to viral pneumonia. Gram-positive bacteremia. Status post bronchoscopy for repositioning of tracheostomy tube on May 07. History of previous hysterectomy. Remote history of tobacco use. Obesity Elevated d-dimer, without evidence of pulmonary embolism. Plan: Plan dated 05/10/2020. We will attempt to get the patient off of dexmedetomidine, and onto a combination of fentanyl patch, Seroquel, and Xanax. Ativan was discontinued. We'll continue the tube feeds with Nepro at 22 cc's per hour which is goal. In addition, the patient remains on daptomycin and Zosyn. The patient remains on mechanical ventilator on the volume assist control modality. The patient's corticosteroids will be reduced prednisone 30 mg a day. We will attempt to get the patient transferred to long-term acute care. The patient did receive full therapy including 2 units, some plasma, Decadron, vitamin C, vitamin D3, zinc, and remdesivir. Overall prognosis remains poor given her long hospital stay, multiple interventions, and evidence of multiple organs which have failed. To follow make additional recommendations. Time with Patient: Greater than 30
[2020-05-10] MEDS ORDERED: propofoL 50 ML IV ONE (10:17)
[2020-05-10] MEDS: METOPROLOL TARTRATE 25 MG TAB PO SCH ×2 (10:44→18:44)
[2020-05-10 11:10] LABS: Glucose,Whole Blood 93 mg/dL (75-99)
[2020-05-10] MEDS ORDERED: NOREPINEPHRINE 8 MG in SODIUM CHLORIDE 0.9% 250 ML IV SCH (11:15)
[2020-05-10] MEDS: FOLIC ACID 1 MG TAB PO SCH (11:58)
[2020-05-10] MEDS: MULTIVITAMINS, THERA 1 EACH TAB PO SCH (11:58)
[2020-05-10] MEDS: DAPTOmycin 750 MG in SODIUM CHLORIDE 0.9% 50 ML IVPB SCH (11:58)
[2020-05-10] MEDS: THIAMINE 100 MG TAB PO SCH (11:58)
[2020-05-10 13:32] LABS: ABG PH 7.13 (7.35-7.45)
--- NOTE | 2020-05-10 14:26 | P.PN ---
Subjective Progress Note Date: 05/10/20 CHIEF COMPLAINT: Shortness of breath HISTORY OF PRESENT ILLNESS: Patient hospitalized for Covid 19 pneumonia currently in the ICU and intubated. Patient is status post trach and PEG tube placement with Dr. Herman. Patient is tolerating tube feedings. No further evidence of a tracheostomy cuff leak. Patient afebrile. WBC 20.1 PHYSICAL EXAM: VITAL SIGNS: Reviewed. GENERAL: Well-developed in no acute distress. HEENT: No sclera icterus. Extraocular movements grossly intact. Moist buccal mucosa. Head is atraumatic, normocephalic. Trach site clean and dry ABDOMEN: Soft. Nondistended. Nontender. PEG tube site clean dry and intact NEUROLOGIC: Intubated and sedated ASSESSMENT: 1. Severe protein calorie malnutrition. Patient is status post PEG tube placement 2. Acute hypoxic respiratory failure secondary to Covid 19 pneumonitis. Patient is status post tracheostomy PLAN: -Continue supportive care -Continue tube feedings Physician Sports Medicine Physician note has been reviewed by physician. Signing provider agrees with the documented findings, assessment, and plan of care. Objective - Vital Signs Vital signs: Vital Signs Temp 97.2 F L 05/10/20 08:00 Pulse 55 L 05/10/20 08:00 Resp 40 H 05/10/20 08:00 BP 121/61 05/10/20 08:00 Pulse Ox 92 L 05/10/20 07:00 Intake & Output 05/09/20 05/10/20 05/10/20 18:59 06:59 18:59 Intake Total 922.962 253 73.494 Output Total 75 660 1000 Balance 847.962 -407 -926.506 Weight 123.4 kg 123.4 kg Intake: IV 299 253 23 0.9% KVO 260 220 20 Pressure Bag 39 33 3 Intake, IV Titration 169.962 50.494 Amount Dexmedetomidine/0.9% NaCl 82.752 (Pmx) 400 mcg In Empty Bag 1 bag @ Titrate IV . Q0M PERRY Rx#:[id number] propofoL 500 mg In Empty 87.210 Bag 1 bag @ Titrate IV . Q0M PERRY Rx#:[id number] propofoL 500 mg In Empty 50.494 Bag 1 bag @ Titrate IV . Q0M PERRY Rx#:[id number] Tube Feeding 264 Other 190 Output: Urine 75 60 Stool 600 Hemodialysis 1000 Other: Voiding Method Indwelling Catheter Indwelling Catheter ABP, PAP, CO, CI - Last Documented Arterial Blood Pressure 150/70 - Labs CBC & Chem 7: 05/10/20 05:55 05/10/20 05:55 Labs: Abnormal Lab Results - Last 24 Hours (Table) 04/30/20 05/09/20 05/09/20 Range/Units 05:00 15:50 20:11 WBC (3.8-10.6) k/uL RBC (3.80-5.40) m/uL Hgb (11.4-16.0) gm/dL Hct (34.0-46.0) % Plt Count (150-450) k/uL Neutrophils # (1.3-7.7) k/uL Lymphocytes # (1.0-4.8) k/uL ABG pH 7.13 L* (7.35-7.45) ABG pCO2 (35-45) mmHg ABG HCO3 (21-25) mmol/L Sodium (137-145) mmol/L Carbon Dioxide (22-30) mmol/L BUN (7-17) mg/dL Creatinine (0.52-1.04) mg/dL POC Glucose (mg/dL) 120 H 125 H (75-99) mg/dL Calcium (8.4-10.2) mg/dL 05/10/20 05/10/20 05/10/20 Range/Units 00:19 05:12 05:55 WBC 20.1 H (3.8-10.6) k/uL RBC 3.20 L (3.80-5.40) m/uL Hgb 10.0 L (11.4-16.0) gm/dL Hct 29.5 L (34.0-46.0) % Plt Count 132 L (150-450) k/uL Neutrophils # 18.8 H (1.3-7.7) k/uL Lymphocytes # 0.5 L (1.0-4.8) k/uL ABG pH (7.35-7.45) ABG pCO2 33 L (35-45) mmHg ABG HCO3 19 L (21-25) mmol/L Sodium (137-145) mmol/L Carbon Dioxide (22-30) mmol/L BUN (7-17) mg/dL Creatinine (0.52-1.04) mg/dL POC Glucose (mg/dL) 130 H (75-99) mg/dL Calcium (8.4-10.2) mg/dL 05/10/20 Range/Units 05:55 WBC (3.8-10.6) k/uL RBC (3.80-5.40) m/uL Hgb (11.4-16.0) gm/dL Hct (34.0-46.0) % Plt Count (150-450) k/uL Neutrophils # (1.3-7.7) k/uL Lymphocytes # (1.0-4.8) k/uL ABG pH (7.35-7.45) ABG pCO2 (35-45) mmHg ABG HCO3 (21-25) mmol/L Sodium 134 L (137-145) mmol/L Carbon Dioxide 17 L (22-30) mmol/L BUN 77 H (7-17) mg/dL Creatinine 3.59 H (0.52-1.04) mg/dL POC Glucose (mg/dL) (75-99) mg/dL Calcium 7.6 L (8.4-10.2) mg/dL Microbiology - Last 24 Hours (Table) 05/06/20 11:00 Blood Culture - Preliminary Blood No Growth after 96 hours 05/06/20 11:00 Blood Culture - Preliminary Blood No Growth after 96 hours 05/04/20 18:49 Blood Culture - Preliminary Blood No Growth after 96 hours 05/03/20 11:55 Blood Culture - Final Blood No Growth after 144 hours
--- NOTE | 2020-05-10 14:53 | P.PN ---
Subjective Progress Note Date: 05/10/20 Ms. Mccoy is a 69-year-old female with a past medical history of hypertension and thyroid disorder admitted to the hospital for acute hypoxic respiratory failure secondary to COVID 19 pneumonia. Patient has extensive bilateral interstitial pneumonia. She is on a low and pulmonary Dr. Mathews is following the patient. Patient received a convalescent plasma, is also on Remdesivir. On 04/17/2020- This morning patient was evaluated in the ICU. Patient is comfortably sitting in a chair states that her breathing is improving gradually. She denies having any chest pain or palpitations. No cough or hemoptysis. She denies having any swelling or for lower extremities. No abdominal pain nausea vomiting or diarrhea. She denies having any dysuria or hematuria, she has a Bryan's catheter in place. On reviewing her vitals temperature 98.1 heart rate 75 is 5817, blood pressure 1:30 bradycardia. Saturating at 96% on a Aervo -60%. On 04/18/2020 - patient was seen and examined in the ICU. Patient is sitting in a chair by the bedside, states that her breathing has worsened compared to yesterday. Patient is on high flow Airvo, saturating in the low 90s. She denies having any chest pain or palpitations. She complains of cough that is nonproductive. Patient had a chest x-ray done showing stable bilateral air space disease. As the patient was having few episodes of tachycardia, she was started on Lopressor this morning. Patient's inflammatory markers are noted to be high. On reviewing her vitals saturating at 90% on high flow Airvo, heart rate 70s to 80s, respiratory rate 20-25, blood pressure 106-67. In reviewing her labs white count of 29.3, hemoglobin 16.8, platelets 369. D-dimer 6.99, LDH 2969, CRP 63.9. On 04/19/2020 - patient is seen and examined in the ICU. She is currently on BiPAP, as her respiratory status has worsened compared to yesterday. Patient denies having any chest pain or palpitations. No abdominal pain nausea vomiting or diarrhea. No dysuria or hematuria. She is on BiPAP 14/6 and 100% FiO2. On reviewing her vitals temperature is 99.2, respiratory rate is 25, heart rate 70, blood pressure 10 9 x 71. Reviewing the labs white count of 27.3, hemoglobin 17.4, platelets 314. Sodium 133, potassium 4.4, chloride 90, bicarbonate 35, BUN 31, creatinine 0.72. Ferritin 3195, CRP 217 and LDH 2747. 04/20/2020 This is a pleasant 69 years old female with multiple medical problems was admitted for bilateral Covid pneumonia, she is currently on aervo at 90%/60 L of oxygen, saturating 89%. Rest of Vitas looks stable Also she is on BiPAP All the night. She is able to eat and drink, no pressors She is on normal saline at 75 mL/h with adequate urine output Patient is currently ON Medrol 40 mg twice daily, Lovenox 60 mg twice Mary and vitamin C and zinc. She finished her remdisvir and convelecent plasma. 04/21/2020 Patient remains in the ICU bed and respiratory support for her bilateral Covid pneumonia. She still dyspneic especially with exertion and she still needs BiPAP during the day shift. Also she had a fever today of 102.2. Patient is empirically on Zosyn/calcitonin check today showing normal level at 0.07. She has leukocytosis of 29K. I agree with Zosyn and I recommended to continue with that for now. Also patient is on steroids 60 mg every 6 hours. As there is no more significant progress progress in her clinical picture Glucose is 123 and inflammatory markers still elevated 04/22/2020 this is a pleasant 69 yo F who is admitted to the ICU for covid pneumonia, she is still on BiPAP dependant , TNP is started for her nutrition for this reasone. her oxygen saturation is on low 90s% cxr: diffuse interstitial opacities and worsening airspace disease in the left lower lung. consider interstitial edema wbc is sligtly less 26K, she is currently continued on zosyn , and solumedrol 60 mg. and normal saline increased to 150 ml/hr. and lovenox 60 mg BID she finised her Remdisvir and convelescent Plasma. 04/23/2020 Patient looks very tired, she came Off the BiPAP today morning and she was placed back on airvo at 60 L she is back and forth between BiPAP and airvo, however she probably will need BiPAP at night Inflammatory markers and d-dimer increased, ferritin 3100 up to 3700 and d-dimer 3 up to 5 Chest x-ray showing bilateral middle and lower infiltrates with slight improvement Treatments with antibiotics Zosyn, fluconazole was added today. Also she is also on Solu-Medrol 60 mg, normal sling was decreased to 50 mL per hour, Lovenox 60 mg twice daily, TPN and she is on vitamin C and zinc 04/24/2020 Patient today her clinical condition deteriorated, she was hypoxic this morning with oxygen saturation in the 70s percent and she was tachycardic with heart rate 140-150, patient ended up being intubated in the morning and she was in an you onset of A. fib and started on Cardizem drip on 15 mg however her heart rate was still elevated, cardiology team were consulted, blood pressure was on the low normal side. Amiodarone drip was started. Cardiology team and Cardizem drip was shut to 15 mg/h. Also insulin drip for hyperglycemia with sugar more than 300. 04/25/2020 Patient was intubated yesterday for deteriorated respiratory status, ABG showing elevated pCO2 on 496 with acidosis. 7.0 and 7.1. Oxygen saturation is acceptable at 107. She remains on mechanical ventilation managed by pulmonary/critical care team, currently her bruits and draped with before meals at 40 to help with her acidosis. Her creatinine worsened today 0.5 up to 1.3, with potassium elevated as well as 5.5 nephrology team were consulted who ordered insulin/dextrose 50%, sodium bicarb 1 and Lasix 80 mg 1. Naval Engineer recommended hemodialysis and no improvement in 24 hours Chest x-ray showing pneumonia and edema which is stable from yesterday. Sugar improved and we could switch her insulin drip to insulin sliding scale A. fib is improved and converted to sinus rhythm with amiodarone which is swi tched to [facility] per Contracting Engineer, She Is Already on Anticoagulation 04/26/20 Patient remains in the ICU sedated and intubated with pulmonary/ critical care team following the case closely. Showing trending down leukocytosis to 20 6.1K. Creatinine up to 2.8, Patient is developing anuria with acute kidney injury, nephrology evaluation is appreciated and hemodialysis is initiated. Chest x-ray showing interstitial infiltrate especially in the mid to lower lungs Echocardiogram showed ejection fraction of 55-60%, and atrial fibrillation improved yesterday with amiodarone She remains on Solu-Medrol, Zosyn and fluconazole, normal sinus 50 and vitamin C and zinc Lovenox dose was adjusted to renal function down to 50 mg daily Prognosis remains guarded 04/27/2020 Patient with bilateral: With pneumonia that her purse and eventually got intubated, pulmonary/critical care team and several consultants are following the case, vent management as per pulmonary team. She has leukocytosis of 13.8 K. Creatinine today is 3.37 Patient undergoing hemodialysis for the last 2-3 days for acute kidney injury and [facility] Patient A. fib heart rate becomes uncontrolled today and her amiodarone to switch to a drip. Other medication including Solu-Medrol 60 mg, vitamin C and zinc, Zosyn and fluconazole, she is on normal saline at 50 mL/h and Lovenox dose dropped to 30 mg daily 04/28/2020 Patient remains intubated and sedated in the ICU, followed closely by critical care team. Vital showing tachycardia and tachypnea. WBC is 30 3.5K. Creatinine 3.8, sodium 134. Sugar is controlled. Inflammatory markers are elevated. She is undergoing hemodialysis today Chest x-ray from today showing no change from last one yesterday Medication-hernandez he remains on Solu-Medrol, Zosyn, 30 mg of Lovenox daily which is renal dose and amiodarone drip. Normal saline at 50 mm was discontinued today 04/29/2020 This is a pleasant 69 years old female with bilateral, with pneumonia. Patient remains in the ICU sedated and intubated with pulmonary/critical care team following the case closely. Normal sedation holiday for the patient currently She already finished her treatment with remdesivir and convalescent plasma, and currently she is on vitamin C and zinc. She was on steroids in the form of high dose of Solu-Medrol 60 mg and Zosyn and fluconazole for possible bacteria and fungal infection associated with viral infection. Patient course was complicated by renal failure and new or so she underwent hemodialysis, last HD was yesterday, she is kept on renal dose of Lovenox 30 mg daily. Other compli cation is atrial fibrillation with RVR which is currently controlled with oral amiodarone and low-dose of Cardizem drip. Patient condition remains critical and she kept on mechanical ventilation with close monitoring Procalcitonin is unchanged yesterday at 0.39 compared to one week ago at 0.39. We'll order another test tomorrow 04/30/2020 Patient is seen and evaluated and follow-up continues to remain closely monitored in the ICU. Patient continues to be on a mechanical ventilator intubated and sedated currently off paralytics. Patient being followed by multiple medical consultations including cardiology, pulmonary, nephrology. Patient currently receiving hemodialysis for ultrafiltration and became extremely hypotensive maxing out on pressors and dialysis was aborted. Patient prognosis is extremely guarded and poor at this time. Patient continues to be on IV steroids along with Lovenox vitamin C and D and zinc supplements and will continue. Patient is also maintained on IV antibiotics in the form of Zosyn and vancomycin being added. Patient currently off of IV amiodarone and IV Cardizem and transitioned to oral amiodarone and will continue at this time. Chest x-ray continues to show interstitial pneumonia with bilateral basilar infiltrates and tiny effusions. She also had an abdominal x-ray showing nonspecific abdomen with no diagnostic evidence of obstruction. White blood count today is 27.9, hemoglobin is stable at 12.7, d-dimer is elevated although slowly trending down at 3.04, current sodium is 129, potassium is 5.9, BUN is 103 with a creatinine of 4.97. Attempts at ultrafiltration today his potassium is elevated. Nephrology is following closely. 05/01/20 Patient remains in the ICU intubated on mechanical ventilation with pulmonary/critical care team following closely. Patient today underwent sedation holiday and into hours she started becoming agitated and developed atrial fibrillation's with RVR, she has to be placed back on amiodarone drip and Cardizem drip 10 mg per hour before it was converted to sinus rhythm again Currently she is tachypneic with a breathing rate around 32. She is saturating 91% on FiO2 of 60% Leukocytosis 27.9 yesterday and 24.6K today. D-dimer stable at 3.7 so she kept on the same dose of Lovenox Inflammatory markers including LDH, protein and C-reactive protein went up slightly today. Patient remains anuric and undergoing hemodialysis She remains on Zosyn and fluconazole, she got 2 doses of IV vancomycin yesterday and today. Also she is on zinc and vitamin C, Lovenox 30 mg daily. Diflucan was stopped 05/02/2020 Patient remains intubated and sedated in the ICU was followed closely by pulmonary/critical care team and for vent management. Patient also with A. fib on several occasions needing Cardizem and amiodarone, cardiology following the patient Patient is still undergoing hemodialysis for anuria and acute kidney injury, nephrology team on the case x-ray showed improvement bibasilar infiltrates She is on some Medrol 60 mg daily, antibiotics were stopped 2 days ago. She is also on Lovenox 30 mg daily, vitamin C and zinc 05/03/2020 Patient is seen this morning currently remains in the ICU receiving hemodialysis today. Multiple medical consultations following. Patient remains on mechanical vent and is intubated and sedated and will continue at this time. D-dimer is elevated at 5.50, sodium is 132, potassium is 5.9, BUN is 108, current creatinine is 4.87. White blood count is 31.3 and hemoglobin is 11.3. Patient blood pressure is elevated as well and has been continuing with daily dialysis. Chest x-rays today show interstitial infiltrates or edema in the mid and lower lungs continue with slight improvement on the left. Patient remains on IV antibiotics in the form of Zosyn and will continue at this time. Infectious disease is following as well. 05/04/2020 Patient is seen in follow-up currently remains in the ICU. Surgical consult was placed for trach and PEG tube placement as patient continues to be on tube feedings and continues to be on a mechanical vent. Dimer elevated at 7.38. Nephrology also following as patient has been receiving hemodialysis and current creatinine today is 4.23 with a BUN of 98 and potassium is 5.9. Patient will be made nothing by mouth and tube feedings held for surgery tomorrow. Family continues to wish for full CODE STATUS. Sputum cultures preliminary showing Brittney albicans and urine showing gram-negative bacilli with Brittney albicans. Infectious disease is following. Patient is maintained on IV antibiotics in the form of Zosyn and daptomycin being added. Will await culture finalization. 05/05/2020 Patient continues to be in the ICU currently on a mechanical vent awaiting PEG tube and trach placement today with surgery. Multiple medical consultations following including nephrology. Potassium was 5.5 this morning and will correct prior to surgery patient will be receiving hemodialysis this afternoon. Infla mmatory markers trending down. Patient is maintained on IV antibiotics in the form of daptomycin along with Zosyn and will continue. Tube feedings on hold this morning for surgery. 05/06/2020 Patient is status post tracheostomy and PEG tube placement and will initiate tube feeds this afternoon per surgery. Patient is currently receiving hemodialysis and nephrology following closely. Patient to continue IV daptomycin and Zosyn. Infectious disease is following. Urine cultures finalized showing E. coli and Brittney. Patient's blood pressures have been on the lower end and elevated heart rate and cardiology following closely. Patient currently on levophed and oral amiodarone. Prognosis remains extremely poor and guarded. 05/07/2020 Patient is seen and evaluated this morning currently being closely monitored in the ICU remains on the mechanical vent via tracheostomy along with PEG tube feedings. Patient also continues to be on levophed and once again on amiodarone drip as patient developed atrial fibrillation with RVR yesterday. Multiple medical consultations following. Patient was seen and evaluated by anesthesia as patient continued to have an air leak that was present around the tracheostomy and patient underwent bronchoscope with Dr. Motta today. Patient continues to have generalized edema. Patient is maintained on hemodialysis although unable to tolerate today. Patient has resumed tube feedings and tolerating thus far. 05/08/2020 Patient remains on ventilatory support presently on norepinephrine which is being weaned off patient is on amiodarone drip and improvement at this time. Patient is being weaned off sedatives and narcotics. White blood cell count still remains elevated. Patient is presently on empiric Zosyn and and daptomycin patient is also on high-dose steroids at this time. 05/09/2020 Patient is still on ventilatory support assist-control ventilation FiO2 of 45% PEEP of 8 patient is off Flovent fentanyl and propofol was started on Precedex patient is still requiring hemodialysis. Chest x-ray showing interstitial infiltrates 05/10/2020 Patient continued on mechanical vent and continues to be on norepinephrine and oral amiodarone. Patient is also continued on propofol along with Precedex. Multiple medical consultations following. Patient to receive hemodialysis today. BUN is 77 with a creatinine of 3.59, potassium is 4.4, sodium is 134. Review of systems: Unable to obtain as patient's currently intubated and sedated Objective - Vital Signs Vital signs: Vital Signs Temp 97.7 F 05/10/20 04:00 Pulse 49 L 05/10/20 07:00 Resp 13 05/10/20 07:00 BP 148/71 05/10/20 07:00 Pulse Ox 92 L 05/10/20 07:00 Intake & Output 05/09/20 05/10/20 05/10/20 18:59 06:59 18:59 Intake Total 922.962 253 23 Output Total 75 660 Balance 847.962 -407 23 Weight 123.4 kg 123.4 kg Intake: IV 299 253 23 0.9% KVO 260 220 20 Pressure Bag 39 33 3 Intake, IV Titration 169.962 Amount Dexmedetomidine/0.9% NaCl 82.752 (Pmx) 400 mcg In Empty Bag 1 bag @ Titrate IV . Q0M PERRY Rx#:[id number] propofoL 500 mg In Empty 87.210 Bag 1 bag @ Titrate IV . Q0M PERRY Rx#:[id number] Tube Feeding 264 Other 190 Output: Urine 75 60 Stool 600 Other: Voiding Method Indwelling Catheter Indwelling Catheter ABP, PAP, CO, CI - Last Documented Arterial Blood Pressure 150/70 - Exam GENERAL: 69-year-old female, intubated and mechanically ventilated via tracheostomy HEENT: Pupils are round and equally reacting to light. EOMI. No scleral icterus. No conjunctival pallor. Normocephalic, atraumatic. No pharyngeal erythema. No thyromegaly. Tracheostomy noted CARDIOVASCULAR: S1 and S2 present. No murmurs, rubs, or gallops. PULMONARY: Bilateral crackles noted on exam ABDOMEN: Soft, nontender, nondistended, normoactive bowel sounds. No palpable organomegaly. PEG tube noted MUSCULOSKELETAL: No joint swelling or deformity. EXTREMITIES: No cyanosis, clubbing, or pedal edema. Bilateral upper and lower extremity edema noted with 2+ pitting in the hands and lower extremities NEUROLOGICAL: Unable to assess, She is currently sedated, attempting sedation holiday to assess mental status SKIN: No rashes. no petechiae. Note: Because of COVID 19 isolation, some of the history and physical exam findings are indirect and obtained from nursing staff, and other physician examinations to avoid unnecessary contact with the patient. - Labs CBC & Chem 7: 05/10/20 05:55 05/10/20 05:55 Labs: Abnormal Lab Results - Last 24 Hours (Table) 05/09/20 05/09/20 05/09/20 Range/Units 11:38 15:50 20:11 WBC (3.8-10.6) k/uL RBC (3.80-5.40) m/uL Hgb (11.4-16.0) gm/dL Hct (34.0-46.0) % Plt Count (150-450) k/uL Neutrophils # (1.3-7.7) k/uL Lymphocytes # (1.0-4.8) k/uL ABG pCO2 (35-45) mmHg ABG HCO3 (21-25) mmol/L Sodium (137-145) mmol/L Carbon Dioxide (22-30) mmol/L BUN (7-17) mg/dL Creatinine (0.52-1.04) mg/dL POC Glucose (mg/dL) 138 H 120 H 125 H (75-99) mg/dL Calcium (8.4-10.2) mg/dL 05/10/20 05/10/20 05/10/20 Range/Units 00:19 05:12 05:55 WBC 20.1 H (3.8-10.6) k/uL RBC 3.20 L (3.80-5.40) m/uL Hgb 10.0 L (11.4-16.0) gm/dL Hct 29.5 L (34.0-46.0) % Plt Count 132 L (150-450) k/uL Neutrophils # 18.8 H (1.3-7.7) k/uL Lymphocytes # 0.5 L (1.0-4.8) k/uL ABG pCO2 33 L (35-45) mmHg ABG HCO3 19 L (21-25) mmol/L Sodium (137-145) mmol/L Carbon Dioxide (22-30) mmol/L BUN (7-17) mg/dL Creatinine (0.52-1.04) mg/dL POC Glucose (mg/dL) 130 H (75-99) mg/dL Calcium (8.4-10.2) mg/dL 05/10/20 Range/Units 05:55 WBC (3.8-10.6) k/uL RBC (3.80-5.40) m/uL Hgb (11.4-16.0) gm/dL Hct (34.0-46.0) % Plt Count (150-450) k/uL Neutrophils # (1.3-7.7) k/uL Lymphocytes # (1.0-4.8) k/uL ABG pCO2 (35-45) mmHg ABG HCO3 (21-25) mmol/L Sodium 134 L (137-145) mmol/L Carbon Dioxide 17 L (22-30) mmol/L BUN 77 H (7-17) mg/dL Creatinine 3.59 H (0.52-1.04) mg/dL POC Glucose (mg/dL) (75-99) mg/dL Calcium 7.6 L (8.4-10.2) mg/dL Microbiology - Last 24 Hours (Table) 05/04/20 18:49 Blood Culture - Preliminary Blood No Growth after 96 hours 05/03/20 11:55 Blood Culture - Final Blood No Growth after 144 hours 05/06/20 11:00 Blood Culture - Preliminary Blood No Growth after 72 hours 05/06/20 11:00 Blood Culture - Preliminary Blood No Growth after 72 hours Assessment and Plan Assessment: COVID 19 pneumonia Status post tracheostomy and PEG tube placement, tube feedings have resumed. Acute hypoxic respiratory failure-status post intubation and mechanical ventilation New onset A. fib with RVR, placed back on amiodarone oral, cardiology following Acute kidney injury with anuria status post hemodialysis, nephrology following Increased d-dimer without evidence of PE Hyponatremia Leukocytosis, remains on Zosyn and daptomycin , infectious disease following Elevated inflammatory markers Hypertension, currently hypotensive and placed on levophed Hypothyroidism History of bilateral posterior tibial tendon repair Obesity with BMI of 40.2 DVT prophylaxis: Subcutaneous Lovenox GI prophylaxis: Pepcid Full code Plan: Continue with current medications. continues on levophed and has transition to oral amiodarone. Patient to receive hemodialysis today. Infectious disease along with pulmonary and cardiology is following. Patient continues to be on mechanical vent and is sedated at this time. Nephrology also following as patient has been receiving hemodialysis. Prognosis remains extremely poor and guarded.
[2020-05-10 15:24] LABS: Glucose,Whole Blood 113 mg/dL (75-99)
[2020-05-10 23:33] LABS: Glucose,Whole Blood 85 mg/dL (75-99)
[2020-05-11 04:15] LABS: Basophils % (A) 0 %; Eosinophils # (A) 0.2 k/uL (0-0.7); Eosinophils % (A) 1 %; HCT 28.6 % (34.0-46.0); Lymphocytes # (A) 1.1 k/uL (1.0-4.8); Lymphocytes % (A) 4 %; MCH 31.9 pg (25.0-35.0); MCHC 34.8 g/dL (31.0-37.0); MCV 91.6 fL (80.0-100.0); Mean Platelet Volume 10.2; Monocytes # (A) 0.6 k/uL (0-1.0); Monocytes % (A) 2 %; Neutrophils # (A) 24.1 k/uL (1.3-7.7); Neutrophils % (A) 92 %; Platelet Count 132 k/uL (150-450); RBC 3.13 m/uL (3.80-5.40); RDW 13.8 % (11.5-15.5); WBC 26.2 k/uL (3.8-10.6)
[2020-05-11 04:38] LABS: Calcium 7.6 mg/dL (8.4-10.2); Potassium 4.1 mmol/L (3.5-5.1)
[2020-05-11 05:22] LABS: ABG Base Excess -5.2 mmol/L; ABG HCO3 20 mmol/L (21-25); ABG Oxygen Saturation 93.3 % (94-97); ABG PCO2 32 mmHg (35-45); ABG PO2 69 mmHg (83-108); ABG TCO2 21 mmol/L (19-24); Allen Test Performed? Yes
[2020-05-11 05:39] LABS: Glucose,Whole Blood 86 mg/dL (75-99)
[2020-05-11] MEDS: INSULIN ASPART (NovoLOG) 100 UNIT/ML VIAL SQ SCH ×3 (05:44→18:03)
[2020-05-11] MEDS: METOPROLOL TARTRATE 25 MG TAB PO SCH ×2 (05:47→17:35)
[2020-05-11] MEDS: LEVOTHYROXINE 50 MCG TAB PO SCH (05:47)
[2020-05-11] MEDS: ALBUTEROL HFA INHALER INHALATION SCH ×4 (07:43→19:55)
--- NOTE | 2020-05-11 08:19 | XR ---
EXAMINATION TYPE: XR chest 1V portable DATE OF EXAM: 05/11/2020 HISTORY: Shortness of breath. COMPARISON: 05/10/2020 TECHNIQUE: Single view of the chest is submitted. FINDINGS: Demonstrated are scattered senescent parenchymal change. Reticulonodular infiltrates persist throughout both lung m[place] without significant change. The heart is stable. Hilar and mediastinal structures are within normal limits. Degenerative changes are seen of the dorsal spine. IMPRESSION: 1. Reticulonodular infiltrates persist throughout both lung m[place] without significant change.
[2020-05-11] MEDS ORDERED: FUROSEMIDE 10 MG/ML 10 ML VIAL IV STA (08:25)
--- NOTE | 2020-05-11 08:27 | P.PN ---
Subjective Patient is seen in follow-up for acute kidney injury, currently hemodialysis dependent. She is receiving tube feeding. Off vasopressors. Oliguric. Last hemodialysis yesterday with 1 L ultrafiltration. She did become hypotensive towards the end of the treatment. Vital signs are stable. General: Tracheostomy noted. HEENT: Neck is without jugular venous distension. LUNGS: Breath sounds decreased. HEART: Rate and Rhythm are regular. ABDOMEN: Soft. EXTREMITITES: 2+ edema. Objective - Vital Signs Vital signs: Vital Signs Temp 98.2 F 05/11/20 04:00 Pulse 77 05/11/20 07:00 Resp 36 H 05/11/20 07:00 BP 109/58 05/11/20 07:00 Pulse Ox 93 L 05/11/20 07:00 Intake & Output 05/10/20 05/11/20 05/11/20 18:59 06:59 18:59 Intake Total 126.643 5845.945 75 Output Total 1108 65 5 Balance -788.583 5787.945 70 Weight 123.4 kg 120.5 kg Intake: IV 436 516 43 0.9% KVO 400 480 40 Pressure Bag 36 36 3 Intake, IV Titration 237.614 353.945 Amount DAPTOmycin 750 mg In 50 Sodium Chloride 0.9% 50 ml @ 100 mls/hr IVPB Q48H P[facility]Y Rx#:[id number] Norepinephrine 8 mg In 107.053 Sodium Chloride 0.9% 250 ml @ 0.05 MCG/KG/MIN 11. 939 mls/hr IV .[id number] P[facility]Y Rx#:[id number] propofoL 500 mg In Empty 187.614 246.892 Bag 1 bag @ Titrate IV . Q0M P[facility]Y Rx#:[id number] Tube Feeding 322 32 Other 120 Output: Urine 108 65 5 Hemodialysis 1000 Other: Voiding Method Indwelling Catheter Indwelling Catheter ABP, PAP, CO, CI - Last Documented Arterial Blood Pressure 121/48 - Labs CBC & Chem 7: 05/11/20 04:05 05/11/20 04:05 Labs: Abnormal Lab Results - Last 24 Hours (Table) 04/30/20 05/10/20 05/11/20 Range/Units 05:00 15:21 04:05 WBC 26.2 H (3.8-10.6) k/uL RBC 3.13 L (3.80-5.40) m/uL Hgb 10.0 L (11.4-16.0) gm/dL Hct 28.6 L (34.0-46.0) % Plt Count 132 L (150-450) k/uL Neutrophils # 24.1 H (1.3-7.7) k/uL ABG pH 7.13 L* (7.35-7.45) ABG pCO2 (35-45) mmHg ABG pO2 (83-108) mmHg ABG HCO3 (21-25) mmol/L ABG O2 Saturation (94-97) % Sodium (137-145) mmol/L Carbon Dioxide (22-30) mmol/L BUN (7-17) mg/dL Creatinine (0.52-1.04) mg/dL POC Glucose (mg/dL) 113 H (75-99) mg/dL Calcium (8.4-10.2) mg/dL 05/11/20 05/11/20 Range/Units 04:05 05:20 WBC (3.8-10.6) k/uL RBC (3.80-5.40) m/uL Hgb (11.4-16.0) gm/dL Hct (34.0-46.0) % Plt Count (150-450) k/uL Neutrophils # (1.3-7.7) k/uL ABG pH (7.35-7.45) ABG pCO2 32 L (35-45) mmHg ABG pO2 69 L (83-108) mmHg ABG HCO3 20 L (21-25) mmol/L ABG O2 Saturation 93.3 L (94-97) % Sodium 133 L (137-145) mmol/L Carbon Dioxide 18 L (22-30) mmol/L BUN 73 H (7-17) mg/dL Creatinine 3.49 H (0.52-1.04) mg/dL POC Glucose (mg/dL) (75-99) mg/dL Calcium 7.6 L (8.4-10.2) mg/dL Microbiology - Last 24 Hours (Table) 05/04/20 18:49 Blood Culture - Preliminary Blood No Growth after 120 hours 05/06/20 11:00 Blood Culture - Preliminary Blood No Growth after 96 hours 05/06/20 11:00 Blood Culture - Preliminary Blood No Growth after 96 hours Assessment and Plan Plan: Assessment: 1. Acute kidney injury secondary to ATN secondary to hypotension, hemodynamic instability and infection. Started on hemodialysis April 26. Remains oliguric. 2. Acute hypercapnic/hypoxic respiratory failure status post tracheostomy. 3. Metabolic acidosis secondary to acute kidney injury. Maintained on oral bicarbonate. 4. COVID-19 infection. PCR from May 07 negative. 5. A. fib with RVR maintained on Lopressor and amiodarone. 6. Hyponatremia secondary to acute kidney injury. Hypervolemic. 7. UTI urine culture positive for E. coli and Brittney maintained on antibiotics. Plan: Continue with daily hemodialysis with ultrafiltration as tolerated. Maintain tube feeding. Continue to monitor renal function and urine output. Monitor for renal recovery. Lasix 80 mg IV once today. Check phosphorus level.
[2020-05-11] MEDS: CHLORHEXIDINE GLUCONATE 15 ML CUP MUCOUS MEM SCH ×2 (08:51→20:22)
[2020-05-11] MEDS: CHOLECALCIFEROL 25 MCG (1000 IU) TABLET PO SCH (08:52)
[2020-05-11] MEDS: ASCORBIC ACID 500 MG TAB PO SCH (08:52)
[2020-05-11] MEDS: QUEtiapine 50 MG TAB PO SCH ×2 (08:52→20:23)
[2020-05-11] MEDS: ALPRAZolam 0.5 MG TAB PO SCH ×4 (08:52→20:22)
[2020-05-11] MEDS: AMIODARONE 200 MG TAB PO SCH ×2 (08:52→20:22)
[2020-05-11] MEDS: predniSONE 10 MG TAB PO SCH (08:52)
[2020-05-11] MEDS: ZINC SULFATE 220 MG CAP PO SCH (08:52)
[2020-05-11] MEDS: SODIUM BICARBONATE TAB 650 MG TAB PO SCH ×4 (08:52→20:22)
[2020-05-11] MEDS: FAMOTIDINE 20 MG TAB OG-TUBE SCH (08:52)
[2020-05-11] MEDS: ENOXAPARIN 30 MG/0.3 ML SYRINGE SQ SCH ×2 (08:52→20:22)
--- NOTE | 2020-05-11 09:20 | P.PN ---
Subjective Progress Note Date: 05/11/20 Principal diagnosis: COVID 19 pneumonia 69-year-old female admitted back on 04/11/2020. She was transferred down from [facility]. She was admitted with a diagnosis of acute hypoxemic respiratory failure secondary to COVID pneumonia. Currently, she is on BiPAP with an IPAP of 14 and an EPAP of 6 and 100% or on AIRVO, at 60 L/m or an FiO2 of 90%. She is also on saline IV at 30 mL an hour. That will be increased up to 75 mL an hour. She's doing about the same today as yesterday. She did receive redesivir for 5 days and 2 doses of convalescent plasma. The patient has a history of nicotine dependence, obesity, and was negative for pulmonary embolism. The patient's chest x-ray is stable today. She has not gotten much better nor has she gotten much worse. She remains in the intensive care unit. She's in room 257. Progress note dated 05/10/2020. This is a 69-year-old female admitted back on 04/11/2020. She was admitted with a diagnosis of acute hypoxemic respiratory failure secondary to COVID 19 pneumonia. The patient was intubated on 04/24/2020, and because of failure to wean from mechanical ventilation, had a tracheostomy performed on May 05, along with a placement of a PEG tube. Currently, the patient remains on the mechanical ventilator. She is on the volume assist control modality with a rate of 32, breathing 38 times a minute, tidal volume 420, FiO2 of 45%, and PEEP of 8. Arterial blood gases show a PaO2 of 85, a PaCO2 of 33, and a pH of 7.37. Currently, the patient's getting saline at 20 mL an hour, dexmedetomidine, at 0. 6 mcg/kg/h, and Nepro at 22 mL now with a goal of 22 mL an hour. The patient is hemodialysis dependent. She currently remains on daptomycin and Zosyn. Today, the patient's Ativan IV was discontinued in favor of oral Xanax. We will add a fentanyl patch at 15 g every 72 hours, and also start the patient on Seroquel. The patient should be considered for transfer to long-term acute care (LTAC). The patient has a history of nicotine dependence, obesity, and was negative for pulmonary embolism. She did receive remdesivir, and convalescent plasma. Progress note dated 05/11/2020 This is a 69-year-old female, admitted back on 04/11/2020. She was admitted with a diagnosis acute hypoxemic respiratory failure secondary to COVID 19 pneumonia. The patient was intubated and mechanically ventilated on 04/24/2020, and subsequent to that, because of failure to wean from mechanical ventilation, had a tracheostomy performed on May 05, along with placement of a PEG feeding tube. Currently, the patient remains on mechanical ventilator has not made any progress towards weaning her extubation. Currently, she is on the volume assist control mode with a rate of 32, and spontaneous respirations of 38, tidal volume 420, FiO2 45%, and a PEEP of 8. Arterial blood gases show a PaO2 of 69, a PaCO2 of 32, and a pH is 7.40. This blood gases consistent with a relative hypoxemia, and a mixed acid-base disturbance including a combined respiratory alkalosis and mild metabolic acidosis. Currently, the patient is on propofol at 50 mics per kilogram per minute, saline at 40 mL an hour, and vital high protein at 32, with a goal of 42 mL an hour. Yesterday, she had hemodialysis. 1 L was removed, but the patient became hypotensive during dialysis. Also, yesterday, I called the transfer team at [facility], using the phone number, [phone]. I initially spoke to the transfer nurse Hans, and then spoke to the physician responsible for transfers, which was an ER physician ( Dr. Leyva sp???). I explained the case to him, and he agreed, that they would be nothing that they [facility] would offer this patient more than warmer currently doing here. The patient was not a candidate for ECMO. I also spoke to a family member yesterday about the patient. I explained to him, that the patient's overall prognosis was poor but they continued to want full life support which I acknowledged. I told him that was their decision. I also explained, that I thought it was appropriate to look at a long-term acute care facility for possible transfer. I explained to him, that we would have to find a suitable location that could handle her current needs, and she would have to be stable before transfer could be considered. Finally, as an attempt to get her off dexmedetomidine and/or propofol, we added a fentanyl patch, Xanax, when necessary Dilaudid, and scheduled Seroquel. Objective - Vital Signs Vital signs: Vital Signs Temp 98.2 F 05/11/20 04:00 Pulse 77 05/11/20 07:00 Resp 36 H 05/11/20 07:00 BP 109/58 05/11/20 07:00 Pulse Ox 93 L 05/11/20 07:00 Intake & Output 05/10/20 05/11/20 05/11/20 18:59 06:59 18:59 Intake Total 610.871 9939.945 75 Output Total 1108 65 5 Balance -008.379 0761.945 70 Weight 123.4 kg 120.5 kg Intake: IV 436 516 43 0.9% KVO 400 480 40 Pressure Bag 36 36 3 Intake, IV Titration 237.614 353.945 Amount DAPTOmycin 750 mg In 50 Sodium Chloride 0.9% 50 ml @ 100 mls/hr IVPB Q48H P[facility]Y Rx#:[id number] Norepinephrine 8 mg In 107.053 Sodium Chloride 0.9% 250 ml @ 0.05 MCG/KG/MIN 11. 939 mls/hr IV .[id number] PERRY Rx#:[id number] propofoL 500 mg In Empty 187.614 246.892 Bag 1 bag @ Titrate IV . Q0M P[facility]Y Rx#:[id number] Tube Feeding 322 32 Other 120 Output: Urine 108 65 5 Hemodialysis 1000 Other: Voiding Method Indwelling Catheter Indwelling Catheter Indwelling Catheter ABP, PAP, CO, CI - Last Documented Arterial Blood Pressure 121/48 - Exam Sedated, intubated, tracheostomy tube in place. On the mechanical ventilator.. HEENT examination is grossly unremarkable. Neck supple. Full range of motion. No adenopathy thyromegaly or neck vein distention. Midline tracheostomy noted. Cardiovascular examination reveals regular rhythm rate. S1-S2 normal. No S3 or S4. No discernible murmur noted. Heart sounds distant. Heart rate 77 bpm. Lungs reveal diffuse bilateral rhonchi. Breath sounds equal. No wheezes. No crackles. Breath sounds are diminished throughout. Abdomen soft bowel sounds are heard. No masses or tenderness. PEG tube noted. Extremities are intact. Mild edema. No cyanosis or clubbing. Skin is without rash or lesion. Multiple areas of ecchymoses. Neurologic examination is difficult to assess given her current level of sedation. - Labs CBC & Chem 7: 05/11/20 04:05 05/11/20 04:05 Labs: Abnormal Lab Results - Last 24 Hours (Table) 04/30/20 05/10/20 05/11/20 Range/Units 05:00 15:21 04:05 WBC 26.2 H (3.8-10.6) k/uL RBC 3.13 L (3.80-5.40) m/uL Hgb 10.0 L (11.4-16.0) gm/dL Hct 28.6 L (34.0-46.0) % Plt Count 132 L (150-450) k/uL Neutrophils # 24.1 H (1.3-7.7) k/uL ABG pH 7.13 L* (7.35-7.45) ABG pCO2 (35-45) mmHg ABG pO2 (83-108) mmHg ABG HCO3 (21-25) mmol/L ABG O2 Saturation (94-97) % Sodium (137-145) mmol/L Carbon Dioxide (22-30) mmol/L BUN (7-17) mg/dL Creatinine (0.52-1.04) mg/dL POC Glucose (mg/dL) 113 H (75-99) mg/dL Calcium (8.4-10.2) mg/dL 05/11/20 05/11/20 Range/Units 04:05 05:20 WBC (3.8-10.6) k/uL RBC (3.80-5.40) m/uL Hgb (11.4-16.0) gm/dL Hct (34.0-46.0) % Plt Count (150-450) k/uL Neutrophils # (1.3-7.7) k/uL ABG pH (7.35-7.45) ABG pCO2 32 L (35-45) mmHg ABG pO2 69 L (83-108) mmHg ABG HCO3 20 L (21-25) mmol/L ABG O2 Saturation 93.3 L (94-97) % Sodium 133 L (137-145) mmol/L Carbon Dioxide 18 L (22-30) mmol/L BUN 73 H (7-17) mg/dL Creatinine 3.49 H (0.52-1.04) mg/dL POC Glucose (mg/dL) (75-99) mg/dL Calcium 7.6 L (8.4-10.2) mg/dL Microbiology - Last 24 Hours (Table) 05/04/20 18:49 Blood Culture - Preliminary Blood No Growth after 120 hours 05/06/20 11:00 Blood Culture - Preliminary Blood No Growth after 96 hours 05/06/20 11:00 Blood Culture - Preliminary Blood No Growth after 96 hours Assessment and Plan Assessment: COVID 19 pneumonia/pneumonitis, with acute hypoxemic respiratory failure, status post intubation on April 24, with failure to wean, and tracheostomy and PEG tube placement on 05/05/2020. Paroxysmal atrial fibrillation with RVR. Acute kidney injury secondary to COVID 19 infection, currently hemodialysis dependent. Elevated liver enzymes, secondary to viral pneumonia. Gram-positive bacteremia. Status post bronchoscopy for repositioning of tracheostomy tube on May 07. History of previous hysterectomy. Remote history of tobacco use. Obesity Elevated d-dimer, without evidence of pulmonary embolism. Plan: Plan dated 05/10/2020. We will attempt to get the patient off of dexmedetomidine, and onto a combination of fentanyl patch, Seroquel, and Xanax. Ativan was discontinued. W e'll continue the tube feeds with Nepro at 22 cc's per hour which is goal. In addition, the patient remains on daptomycin and Zosyn. The patient remains on mechanical ventilator on the volume assist control modality. The patient's corticosteroids will be reduced prednisone 30 mg a day. We will attempt to get the patient transferred to long-term acute care. The patient did receive full therapy including 2 units, some plasma, Decadron, vitamin C, vitamin D3, zinc, and remdesivir. Overall prognosis remains poor given her long hospital stay, multiple interventions, and evidence of multiple organs which have failed. To follow make additional recommendations. Plan dated 05/11/2020. Currently, white blood count is 26.2, hemoglobin 10, hematocrit 28.6, and platelet count 132,000. Sodium is 133, potassium 4.1, chlorides 102, CO2 18, anion gap 13, and BUN 73 with a creatinine of 3.49. Calcium is 7.6. Chest x- ray continues to show reticular nodular infiltrates throughout both lung mendoza, without significant change. All medications are reviewed. The patient has received full therapy for her illness including 2 units of convalescence plasma, Decadron, vitamin C, vitamin D3, zinc, and remdesivir. In addition, the patient remains on daptomycin and Zosyn. I did make a phone call to the transfer team at [facility] yesterday, and they refused to accept this patient. They said, there is nothing more that they would do there are that were not currently doing here. Currently, the patient remains on propofol at 50 mics per kilogram per minute. We're attempting to get her off of this medication, so that we might consider transfer to long-term acute care facility. Currently, we've added Seroquel, Dilaudid when necessary, fentanyl patch, and Xanax. We will continue to manage this patient fully and aggressively. Prognosis is guarded as his been mentioned before. Time with Patient: Greater than 30
[2020-05-11] MEDS: THIAMINE 100 MG TAB PO SCH (11:37)
[2020-05-11] MEDS: MULTIVITAMINS, THERA 1 EACH TAB PO SCH (11:37)
[2020-05-11] MEDS: FOLIC ACID 1 MG TAB PO SCH (11:37)
--- NOTE | 2020-05-11 11:56 | P.PN ---
Subjective Progress Note Date: 05/11/20 CHIEF COMPLAINT: Shortness of breath HISTORY OF PRESENT ILLNESS: Patient hospitalized for Covid 19 pneumonia currently in the ICU and intubated. Patient is status post trach and PEG tube placement with Dr. Herman. Patient had did have residual with her tube feedings yesterday. Her tube feedings were adjusted per the dietitian. And today she is only having 5 mL residual. No further evidence of a tracheostomy cuff leak. Patient afebrile. WBC 26.2 PHYSICAL EXAM: VITAL SIGNS: Reviewed. GENERAL: Well-developed in no acute distress. HEENT: No sclera icterus. Extraocular movements grossly intact. Moist buccal mucosa. Head is atraumatic, normocephalic. Trach site clean and dry ABDOMEN: Soft. Nondistended. Nontender. PEG tube site clean dry and intact NEUROLOGIC: Intubated and sedated ASSESSMENT: 1. Severe protein calorie malnutrition. Patient is status post PEG tube placement 2. Acute hypoxic respiratory failure secondary to Covid 19 pneumonitis. Patient is status post tracheostomy PLAN: -Continue supportive care -Continue tube feedings Physician Inbound Sales Consultant note has been reviewed by physician. Signing provider agrees with the documented findings, assessment, and plan of care. Objective - Vital Signs Vital signs: Vital Signs Temp 97.1 F L 05/11/20 08:00 Pulse 83 05/11/20 11:00 Resp 38 H 05/11/20 11:00 BP 99/76 05/11/20 11:00 Pulse Ox 84 L 05/11/20 11:00 Intake & Output 05/10/20 05/11/20 05/11/20 18:59 06:59 18:59 Intake Total 280.980 5596.945 348.206 Output Total 1108 65 20 Balance -403.802 3803.945 328.206 Weight 123.4 kg 120.5 kg Intake: IV 436 516 215 0.9% KVO 400 480 200 Pressure Bag 36 36 15 Intake, IV Titration 237.614 353.945 101.206 Amount DAPTOmycin 750 mg In 50 Sodium Chloride 0.9% 50 ml @ 100 mls/hr IVPB Q48H PERRY Rx#:[id number] Norepinephrine 8 mg In 107.053 Sodium Chloride 0.9% 250 ml @ 0.05 MCG/KG/MIN 11. 939 mls/hr IV .[id number] PERRY Rx#:[id number] propofoL 500 mg In Empty 187.614 246.892 101.206 Bag 1 bag @ Titrate IV . Q0M PERRY Rx#:[id number] Tube Feeding 322 32 Other 120 Output: Urine 108 65 20 Hemodialysis 1000 Other: Voiding Method Indwelling Catheter Indwelling Catheter Indwelling Catheter ABP, PAP, CO, CI - Last Documented Arterial Blood Pressure 91/40 - Labs CBC & Chem 7: 05/11/20 04:05 05/11/20 04:05 Labs: Abnormal Lab Results - Last 24 Hours (Table) 04/30/20 05/10/20 05/11/20 Range/Units 05:00 15:21 04:05 WBC 26.2 H (3.8-10.6) k/uL RBC 3.13 L (3.80-5.40) m/uL Hgb 10.0 L (11.4-16.0) gm/dL Hct 28.6 L (34.0-46.0) % Plt Count 132 L (150-450) k/uL Neutrophils # 24.1 H (1.3-7.7) k/uL ABG pH 7.13 L* (7.35-7.45) ABG pCO2 (35-45) mmHg ABG pO2 (83-108) mmHg ABG HCO3 (21-25) mmol/L ABG O2 Saturation (94-97) % Sodium (137-145) mmol/L Carbon Dioxide (22-30) mmol/L BUN (7-17) mg/dL Creatinine (0.52-1.04) mg/dL POC Glucose (mg/dL) 113 H (75-99) mg/dL Calcium (8.4-10.2) mg/dL 05/11/20 05/11/20 Range/Units 04:05 05:20 WBC (3.8-10.6) k/uL RBC (3.80-5.40) m/uL Hgb (11.4-16.0) gm/dL Hct (34.0-46.0) % Plt Count (150-450) k/uL Neutrophils # (1.3-7.7) k/uL ABG pH (7.35-7.45) ABG pCO2 32 L (35-45) mmHg ABG pO2 69 L (83-108) mmHg ABG HCO3 20 L (21-25) mmol/L ABG O2 Saturation 93.3 L (94-97) % Sodium 133 L (137-145) mmol/L Carbon Dioxide 18 L (22-30) mmol/L BUN 73 H (7-17) mg/dL Creatinine 3.49 H (0.52-1.04) mg/dL POC Glucose (mg/dL) (75-99) mg/dL Calcium 7.6 L (8.4-10.2) mg/dL Microbiology - Last 24 Hours (Table) 05/04/20 18:49 Blood Culture - Preliminary Blood No Growth after 120 hours 05/06/20 11:00 Blood Culture - Preliminary Blood No Growth after 96 hours 05/06/20 11:00 Blood Culture - Preliminary Blood No Growth after 96 hours
[2020-05-11 12:45] LABS: Glucose,Whole Blood 103 mg/dL (75-99)
[2020-05-11] MEDS: HYDROmorphone 1 MG/ML 1 ML SYRINGE IVP PRN (15:19)
--- NOTE | 2020-05-11 15:34 | P.PN ---
Subjective Progress Note Date: 05/11/20 Ms. Mccoy is a 69-year-old female with a past medical history of hypertension and thyroid disorder admitted to the hospital for acute hypoxic respiratory failure secondary to COVID 19 pneumonia. Patient has extensive bilateral interstitial pneumonia. She is on a low and pulmonary Dr. Mathews is following the patient. Patient received a convalescent plasma, is also on Remdesivir. On 04/17/2020- This morning patient was evaluated in the ICU. Patient is comfortably sitting in a chair states that her breathing is improving gradually. She denies having any chest pain or palpitations. No cough or hemoptysis. She denies having any swelling or for lower extremities. No abdominal pain nausea vomiting or diarrhea. She denies having any dysuria or hematuria, she has a Bryan's catheter in place. On reviewing her vitals temperature 98.1 heart rate 75 is 5817, blood pressure 1:30 bradycardia. Saturating at 96% on a Aervo -60%. On 04/18/2020 - patient was seen and examined in the ICU. Patient is sitting in a chair by the bedside, states that her breathing has worsened compared to yesterday. Patient is on high flow Airvo, saturating in the low 90s. She denies having any chest pain or palpitations. She complains of cough that is nonproductive. Patient had a chest x-ray done showing stable bilateral air space disease. As the patient was having few episodes of tachycardia, she was started on Lopressor this morning. Patient's inflammatory markers are noted to be high. On reviewing her vitals saturating at 90% on high flow Airvo, heart rate 70s to 80s, respiratory rate 20-25, blood pressure 106-67. In reviewing her labs white count of 29.3, hemoglobin 16.8, platelets 369. D-dimer 6.99, LDH 2969, CRP 63.9. On 04/19/2020 - patient is seen and examined in the ICU. She is currently on BiPAP, as her respiratory status has worsened compared to yesterday. Patient denies having any chest pain or palpitations. No abdominal pain nausea vomiting or diarrhea. No dysuria or hematuria. She is on BiPAP 14/6 and 100% FiO2. On reviewing her vitals temperature is 99.2, respiratory rate is 25, heart rate 70, blood pressure 10 9 x 71. Reviewing the labs white count of 27.3, hemoglobin 17.4, platelets 314. Sodium 133, potassium 4.4, chloride 90, bicarbonate 35, BUN 31, creatinine 0.72. Ferritin 3195, CRP 217 and LDH 2747. 04/20/2020 This is a pleasant 69 years old female with multiple medical problems was admitted for bilateral Covid pneumonia, she is currently on aervo at 90%/60 L of oxygen, saturating 89%. Rest of Vitas looks stable Also she is on BiPAP All the night. She is able to eat and drink, no pressors She is on normal saline at 75 mL/h with adequate urine output Patient is currently ON Medrol 40 mg twice daily, Lovenox 60 mg twice Mary and vitamin C and zinc. She finished her remdisvir and convelecent plasma. 04/21/2020 Patient remains in the ICU bed and respiratory support for her bilateral Covid pneumonia. She still dyspneic especially with exertion and she still needs BiPAP during the day shift. Also she had a fever today of 102.2. Patient is empirically on Zosyn/calcitonin check today showing normal level at 0.07. She has leukocytosis of 29K. I agree with Zosyn and I recommended to continue with that for now. Also patient is on steroids 60 mg every 6 hours. As there is no more significant progress progress in her clinical picture Glucose is 123 and inflammatory markers still elevated 04/22/2020 this is a pleasant 69 yo F who is admitted to the ICU for covid pneumonia, she is still on BiPAP dependant , TNP is started for her nutrition for this reasone. her oxygen saturation is on low 90s% cxr: diffuse interstitial opacities and worsening airspace disease in the left lower lung. consider interstitial edema wbc is sligtly less 26K, she is currently continued on zosyn , and solumedrol 60 mg. and normal saline increased to 150 ml/hr. and lovenox 60 mg BID she finised her Remdisvir and convelescent Plasma. 04/23/2020 Patient looks very tired, she came Off the BiPAP today morning and she was placed back on airvo at 60 L she is back and forth between BiPAP and airvo, however she probably will need BiPAP at night Inflammatory markers and d-dimer increased, ferritin 3100 up to 3700 and d-dimer 3 up to 5 Chest x-ray showing bilateral middle and lower infiltrates with slight improvement Treatments with antibiotics Zosyn, fluconazole was added today. Also she is also on Solu-Medrol 60 mg, normal sling was decreased to 50 mL per hour, Lovenox 60 mg twice daily, TPN and she is on vitamin C and zinc 04/24/2020 Patient today her clinical condition deteriorated, she was hypoxic this morning with oxygen saturation in the 70s percent and she was tachycardic with heart rate 140-150, patient ended up being intubated in the morning and she was in an you onset of A. fib and started on Cardizem drip on 15 mg however her heart rate was still elevated, cardiology team were consulted, blood pressure was on the low normal side. Amiodarone drip was started. Cardiology team and Cardizem drip was shut to 15 mg/h. Also insulin drip for hyperglycemia with sugar more than 300. 04/25/2020 Patient was intubated yesterday for deteriorated respiratory status, ABG showing elevated pCO2 on 496 with acidosis. 7.0 and 7.1. Oxygen saturation is acceptable at 107. She remains on mechanical ventilation managed by pulmonary/critical care team, currently her bruits and draped with before meals at 40 to help with her acidosis. Her creatinine worsened today 0.5 up to 1.3, with potassium elevated as well as 5.5 nephrology team were consulted who ordered insulin/dextrose 50%, sodium bicarb 1 and Lasix 80 mg 1. Validation Architect recommended hemodialysis and no improvement in 24 hours Chest x-ray showing pneumonia and edema which is stable from yesterday. Sugar improved and we could switch her insulin drip to insulin sliding scale A. fib is improved and converted to sinus rhythm with amiodarone which is swi tched to [facility] per [facility], She Is Already on Anticoagulation 04/26/20 Patient remains in the ICU sedated and intubated with pulmonary/ critical care team following the case closely. Showing trending down leukocytosis to 20 6.1K. Creatinine up to 2.8, Patient is developing anuria with acute kidney injury, nephrology evaluation is appreciated and hemodialysis is initiated. Chest x-ray showing interstitial infiltrate especially in the mid to lower lungs Echocardiogram showed ejection fraction of 55-60%, and atrial fibrillation improved yesterday with amiodarone She remains on Solu-Medrol, Zosyn and fluconazole, normal sinus 50 and vitamin C and zinc Lovenox dose was adjusted to renal function down to 50 mg daily Prognosis remains guarded 04/27/2020 Patient with bilateral: With pneumonia that her purse and eventually got intubated, pulmonary/critical care team and several consultants are following the case, vent management as per pulmonary team. She has leukocytosis of 13.8 K. Creatinine today is 3.37 Patient undergoing hemodialysis for the last 2-3 days for acute kidney injury and [facility] Patient A. fib heart rate becomes uncontrolled today and her amiodarone to switch to a drip. Other medication including Solu-Medrol 60 mg, vitamin C and zinc, Zosyn and fluconazole, she is on normal saline at 50 mL/h and Lovenox dose dropped to 30 mg daily 04/28/2020 Patient remains intubated and sedated in the ICU, followed closely by critical care team. Vital showing tachycardia and tachypnea. WBC is 30 3.5K. Creatinine 3.8, sodium 134. Sugar is controlled. Inflammatory markers are elevated. She is undergoing hemodialysis today Chest x-ray from today showing no change from last one yesterday Medication-hernandez he remains on Solu-Medrol, Zosyn, 30 mg of Lovenox daily which is renal dose and amiodarone drip. Normal saline at 50 mm was discontinued today 04/29/2020 This is a pleasant 69 years old female with bilateral, with pneumonia. Patient remains in the ICU sedated and intubated with pulmonary/critical care team following the case closely. Normal sedation holiday for the patient currently She already finished her treatment with remdesivir and convalescent plasma, and currently she is on vitamin C and zinc. She was on steroids in the form of high dose of Solu-Medrol 60 mg and Zosyn and fluconazole for possible bacteria and fungal infection associated with viral infection. Patient course was complicated by renal failure and new or so she underwent hemodialysis, last HD was yesterday, she is kept on renal dose of Lovenox 30 mg daily. Other compli cation is atrial fibrillation with RVR which is currently controlled with oral amiodarone and low-dose of Cardizem drip. Patient condition remains critical and she kept on mechanical ventilation with close monitoring Procalcitonin is unchanged yesterday at 0.39 compared to one week ago at 0.39. We'll order another test tomorrow 04/30/2020 Patient is seen and evaluated and follow-up continues to remain closely monitored in the ICU. Patient continues to be on a mechanical ventilator intubated and sedated currently off paralytics. Patient being followed by multiple medical consultations including cardiology, pulmonary, nephrology. Patient currently receiving hemodialysis for ultrafiltration and became extremely hypotensive maxing out on pressors and dialysis was aborted. Patient prognosis is extremely guarded and poor at this time. Patient continues to be on IV steroids along with Lovenox vitamin C and D and zinc supplements and will continue. Patient is also maintained on IV antibiotics in the form of Zosyn and vancomycin being added. Patient currently off of IV amiodarone and IV Cardizem and transitioned to oral amiodarone and will continue at this time. Chest x-ray continues to show interstitial pneumonia with bilateral basilar infiltrates and tiny effusions. She also had an abdominal x-ray showing nonspecific abdomen with no diagnostic evidence of obstruction. White blood count today is 27.9, hemoglobin is stable at 12.7, d-dimer is elevated although slowly trending down at 3.04, current sodium is 129, potassium is 5.9, BUN is 103 with a creatinine of 4.97. Attempts at ultrafiltration today his potassium is elevated. Nephrology is following closely. 05/01/20 Patient remains in the ICU intubated on mechanical ventilation with pulmonary/critical care team following closely. Patient today underwent sedation holiday and into hours she started becoming agitated and developed atrial fibrillation's with RVR, she has to be placed back on amiodarone drip and Cardizem drip 10 mg per hour before it was converted to sinus rhythm again Currently she is tachypneic with a breathing rate around 32. She is saturating 91% on FiO2 of 60% Leukocytosis 27.9 yesterday and 24.6K today. D-dimer stable at 3.7 so she kept on the same dose of Lovenox Inflammatory markers including LDH, protein and C-reactive protein went up slightly today. Patient remains anuric and undergoing hemodialysis She remains on Zosyn and fluconazole, she got 2 doses of IV vancomycin yesterday and today. Also she is on zinc and vitamin C, Lovenox 30 mg daily. Diflucan was stopped 05/02/2020 Patient remains intubated and sedated in the ICU was followed closely by pulmonary/critical care team and for vent management. Patient also with A. fib on several occasions needing Cardizem and amiodarone, cardiology following the patient Patient is still undergoing hemodialysis for anuria and acute kidney injury, nephrology team on the case x-ray showed improvement bibasilar infiltrates She is on some Medrol 60 mg daily, antibiotics were stopped 2 days ago. She is also on Lovenox 30 mg daily, vitamin C and zinc 05/03/2020 Patient is seen this morning currently remains in the ICU receiving hemodialysis today. Multiple medical consultations following. Patient remains on mechanical vent and is intubated and sedated and will continue at this time. D-dimer is elevated at 5.50, sodium is 132, potassium is 5.9, BUN is 108, current creatinine is 4.87. White blood count is 31.3 and hemoglobin is 11.3. Patient blood pressure is elevated as well and has been continuing with daily dialysis. Chest x-rays today show interstitial infiltrates or edema in the mid and lower lungs continue with slight improvement on the left. Patient remains on IV antibiotics in the form of Zosyn and will continue at this time. Infectious disease is following as well. 05/04/2020 Patient is seen in follow-up currently remains in the ICU. Surgical consult was placed for trach and PEG tube placement as patient continues to be on tube feedings and continues to be on a mechanical vent. Dimer elevated at 7.38. Nephrology also following as patient has been receiving hemodialysis and current creatinine today is 4.23 with a BUN of 98 and potassium is 5.9. Patient will be made nothing by mouth and tube feedings held for surgery tomorrow. Family continues to wish for full CODE STATUS. Sputum cultures preliminary showing Brittney albicans and urine showing gram-negative bacilli with Brittney albicans. Infectious disease is following. Patient is maintained on IV antibiotics in the form of Zosyn and daptomycin being added. Will await culture finalization. 05/05/2020 Patient continues to be in the ICU currently on a mechanical vent awaiting PEG tube and trach placement today with surgery. Multiple medical consultations following including nephrology. Potassium was 5.5 this morning and will correct prior to surgery patient will be receiving hemodialysis this afternoon. Infla mmatory markers trending down. Patient is maintained on IV antibiotics in the form of daptomycin along with Zosyn and will continue. Tube feedings on hold this morning for surgery. 05/06/2020 Patient is status post tracheostomy and PEG tube placement and will initiate tube feeds this afternoon per surgery. Patient is currently receiving hemodialysis and nephrology following closely. Patient to continue IV daptomycin and Zosyn. Infectious disease is following. Urine cultures finalized showing E. coli and Brittney. Patient's blood pressures have been on the lower end and elevated heart rate and cardiology following closely. Patient currently on levophed and oral amiodarone. Prognosis remains extremely poor and guarded. 05/07/2020 Patient is seen and evaluated this morning currently being closely monitored in the ICU remains on the mechanical vent via tracheostomy along with PEG tube feedings. Patient also continues to be on levophed and once again on amiodarone drip as patient developed atrial fibrillation with RVR yesterday. Multiple medical consultations following. Patient was seen and evaluated by anesthesia as patient continued to have an air leak that was present around the tracheostomy and patient underwent bronchoscope with Dr. Motta today. Patient continues to have generalized edema. Patient is maintained on hemodialysis although unable to tolerate today. Patient has resumed tube feedings and tolerating thus far. 05/08/2020 Patient remains on ventilatory support presently on norepinephrine which is being weaned off patient is on amiodarone drip and improvement at this time. Patient is being weaned off sedatives and narcotics. White blood cell count still remains elevated. Patient is presently on empiric Zosyn and and daptomycin patient is also on high-dose steroids at this time. 05/09/2020 Patient is still on ventilatory support assist-control ventilation FiO2 of 45% PEEP of 8 patient is off Flovent fentanyl and propofol was started on Precedex patient is still requiring hemodialysis. Chest x-ray showing interstitial infiltrates 05/10/2020 Patient continued on mechanical vent and continues to be on norepinephrine and oral amiodarone. Patient is also continued on propofol along with Precedex. Multiple medical consultations following. Patient to receive hemodialysis today. BUN is 77 with a creatinine of 3.59, potassium is 4.4, sodium is 134. 05/11/2020 Patient remains in the ICU on mechanical ventilation currently receiving hemodialysis today. White blood count continues to be elevated at 26.2, hemoglobin is stable at 10.0, sodium is 133, potassium is 4.1, BUN is 73 and creatinine is 3.49. Steroids have been adjusted to oral and receiving via PEG tube. Patient is maintained on tube feedings and will continue. Patient continues to be sedated on propofol. Multiple medical consultations following. Another discussion was had with the family about CODE STATUS and they wish for her to remain full code at this time. Patient prognosis is extremely poor and guarded. Review of systems: Unable to obtain as patient's currently intubated and sedated Objective - Vital Signs Vital signs: Vital Signs Temp 98.2 F 05/11/20 04:00 Pulse 77 05/11/20 07:00 Resp 36 H 05/11/20 07:00 BP 109/58 05/11/20 07:00 Pulse Ox 93 L 05/11/20 07:00 Intake & Output 05/10/20 05/11/20 05/11/20 18:59 06:59 18:59 Intake Total 357.576 4055.945 75 Output Total 1108 65 5 Balance -367.822 5738.945 70 Weight 123.4 kg 120.5 kg Intake: IV 436 516 43 0.9% KVO 400 480 40 Pressure Bag 36 36 3 Intake, IV Titration 237.614 353.945 Amount DAPTOmycin 750 mg In 50 Sodium Chloride 0.9% 50 ml @ 100 mls/hr IVPB Q48H PERRY Rx#:[id number] Norepinephrine 8 mg In 107.053 Sodium Chloride 0.9% 250 ml @ 0.05 MCG/KG/MIN 11. 939 mls/hr IV .[id number] PERRY Rx#:[id number] propofoL 500 mg In Empty 187.614 246.892 Bag 1 bag @ Titrate IV . Q0M PERRY Rx#:[id number] Tube Feeding 322 32 Other 120 Output: Urine 108 65 5 Hemodialysis 1000 Other: Voiding Method Indwelling Catheter Indwelling Catheter Indwelling Catheter ABP, PAP, CO, CI - Last Documented Arterial Blood Pressure 121/48 - Exam GENERAL: 69-year-old female, intubated and mechanically ventilated via trac heostomy HEENT: Pupils are round and equally reacting to light. EOMI. No scleral icterus. No conjunctival pallor. Normocephalic, atraumatic. No pharyngeal erythema. No thyromegaly. Tracheostomy noted CARDIOVASCULAR: S1 and S2 present. No murmurs, rubs, or gallops. PULMONARY: Bilateral crackles noted on exam ABDOMEN: Soft, nontender, nondistended, normoactive bowel sounds. No palpable organomegaly. PEG tube noted MUSCULOSKELETAL: No joint swelling or deformity. EXTREMITIES: No cyanosis, clubbing, or pedal edema. Bilateral upper and lower extremity edema noted with 2+ pitting in the hands and lower extremities NEUROLOGICAL: Unable to assess, She is currently sedated, attempting sedation h oliday to assess mental status SKIN: No rashes. no petechiae. Note: Because of COVID 19 isolation, some of the history and physical exam findings are indirect and obtained from nursing staff, and other physician examinations to avoid unnecessary contact with the patient. - Labs CBC & Chem 7: 05/11/20 04:05 05/11/20 04:05 Labs: Abnormal Lab Results - Last 24 Hours (Table) 04/30/20 05/10/20 05/11/20 Range/Units 05:00 15:21 04:05 WBC 26.2 H (3.8-10.6) k/uL RBC 3.13 L (3.80-5.40) m/uL Hgb 10.0 L (11.4-16.0) gm/dL Hct 28.6 L (34.0-46.0) % Plt Count 132 L (150-450) k/uL Neutrophils # 24.1 H (1.3-7.7) k/uL ABG pH 7.13 L* (7.35-7.45) ABG pCO2 (35-45) mmHg ABG pO2 (83-108) mmHg ABG HCO3 (21-25) mmol/L ABG O2 Saturation (94-97) % Sodium (137-145) mmol/L Carbon Dioxide (22-30) mmol/L BUN (7-17) mg/dL Creatinine (0.52-1.04) mg/dL POC Glucose (mg/dL) 113 H (75-99) mg/dL Calcium (8.4-10.2) mg/dL 05/11/20 05/11/20 Range/Units 04:05 05:20 WBC (3.8-10.6) k/uL RBC (3.80-5.40) m/uL Hgb (11.4-16.0) gm/dL Hct (34.0-46.0) % Plt Count (150-450) k/uL Neutrophils # (1.3-7.7) k/uL ABG pH (7.35-7.45) ABG pCO2 32 L (35-45) mmHg ABG pO2 69 L (83-108) mmHg ABG HCO3 20 L (21-25) mmol/L ABG O2 Saturation 93.3 L (94-97) % Sodium 133 L (137-145) mmol/L Carbon Dioxide 18 L (22-30) mmol/L BUN 73 H (7-17) mg/dL Creatinine 3.49 H (0.52-1.04) mg/dL POC Glucose (mg/dL) (75-99) mg/dL Calcium 7.6 L (8.4-10.2) mg/dL Microbiology - Last 24 Hours (Table) 05/04/20 18:49 Blood Culture - Preliminary Blood No Growth after 120 hours 05/06/20 11:00 Blood Culture - Preliminary Blood No Growth after 96 hours 05/06/20 11:00 Blood Culture - Preliminary Blood No Growth after 96 hours Assessment and Plan Assessment: COVID 19 pneumonia Status post tracheostomy and PEG tube placement Acute hypoxic respiratory failure-status post intubation and mechanical ventilation New onset A. fib with RVR, placed back on amiodarone oral, cardiology following Acute kidney injury with anuria status post hemodialysis, nephrology following Increased d-dimer without evidence of PE Hyponatremia, improved Leukocytosis, remains on daptomycin , infectious disease following Elevated inflammatory markers Hypertension, currently hypotensive receiving hemodialysis Hypothyroidism History of bilateral posterior tibial tendon repair Obesity with BMI of 40.2 DVT prophylaxis: Subcutaneous Lovenox GI prophylaxis: Pepcid Full code Plan: Continue with current medications. continues to be hypotensive. Patient currently receiving hemodialysis at this time. Infectious disease along with pulmonary and cardiology is following. Patient continues to be on mechanical vent and is sedated at this time. Nephrology also following as patient has been receiving hemodialysis. CODE STATUS was addressed with family and they wish for her to remain full code. Prognosis remains extremely poor and guarded.
--- NOTE | 2020-05-11 17:35 | PN ---
PROGRESS NOTE DATE OF SERVICE: 05/11/2020 REASON FOR FOLLOWUP: Bacteremia and a question of pneumonia. INTERVAL HISTORY: The patient is currently afebrile. The patient is hemodynamically stable , FiO2 is currently at 45%. No purulent secretions or any worsening diarrhea reported by the nursing staff. PHYSICAL EXAMINATION: Blood pressure 112/85, pulse of 90, temperature 98.5. He is 88% on 45% FiO2. General description is an elderly female lying in bed in no distress. RESPIRATORY SYSTEM: Unlabored breathing with decreased intensity of breath sounds. No wheeze. HEART: S1, S2. Regular rate and rhythm. ABDOMEN: Soft. LABS: Hemoglobin is 10, white count 26.2, BUN of 73, creatinine 3.49. Blood culture has been negative. DIAGNOSTIC IMPRESSION AND PLAN: 1. Patient with a positive blood culture with Gram-positive in this patient who did have did have a dialysis catheter and a PICC line. Repeat blood culture negative. Short course of daptomycin to continue. 2. Diarrhea, possibly antibiotic-associated. Abdominal pain has decreased in intensity. Continue monitor closely and continue supportive care. MMODL / IJN: [id number] / MTDD
[2020-05-11 17:46] LABS: Glucose,Whole Blood 117 mg/dL (75-99)
[2020-05-12 00:23] LABS: Glucose,Whole Blood 104 mg/dL (75-99)
[2020-05-12] MEDS: INSULIN ASPART (NovoLOG) 100 UNIT/ML VIAL SQ SCH ×4 (00:27→18:55)
[2020-05-12 05:31] LABS: ABG Base Excess -0.7 mmol/L; ABG HCO3 25 mmol/L (21-25); ABG Oxygen Saturation 92.2 % (94-97); ABG PCO2 45 mmHg (35-45); ABG PH 7.36 (7.35-7.45); ABG PO2 67 mmHg (83-108); ABG TCO2 26 mmol/L (19-24); Allen Test Performed? Yes
[2020-05-12 06:05] LABS: Basophils % (A) 0 %; Eosinophils # (A) 0.1 k/uL (0-0.7); Eosinophils % (A) 1 %; HCT 25.8 % (34.0-46.0); HGB 8.7 gm/dL (11.4-16.0); Lymphocytes # (A) 0.5 k/uL (1.0-4.8); Lymphocytes % (A) 3 %; MCH 31.4 pg (25.0-35.0); MCHC 33.6 g/dL (31.0-37.0); MCV 93.4 fL (80.0-100.0); Mean Platelet Volume 9.3; Monocytes # (A) 0.5 k/uL (0-1.0); Monocytes % (A) 3 %; Neutrophils # (A) 16.4 k/uL (1.3-7.7); Neutrophils % (A) 93 %; Platelet Count 111 k/uL (150-450); RBC 2.76 m/uL (3.80-5.40); RDW 14.6 % (11.5-15.5); WBC 17.6 k/uL (3.8-10.6)
[2020-05-12] MEDS: HYDROmorphone 1 MG/ML 1 ML SYRINGE IVP PRN ×2 (06:13→21:03)
[2020-05-12] MEDS: LEVOTHYROXINE 50 MCG TAB PO SCH (06:22)
[2020-05-12] MEDS: METOPROLOL TARTRATE 25 MG TAB PO SCH ×2 (06:22→18:39)
[2020-05-12 06:33] LABS: Calcium 7.7 mg/dL (8.4-10.2); Magnesium 2.1 mg/dL (1.6-2.3); Phosphorus 6.6 mg/dL (2.5-4.5); Potassium 3.8 mmol/L (3.5-5.1); Total Bilirubin 0.5 mg/dL (0.2-1.3); Total Protein 4.2 g/dL (6.3-8.2)
--- NOTE | 2020-05-12 07:06 | P.PN ---
Subjective Progress Note Date: 05/12/20 Principal diagnosis: COVID 19 pneumonia 69-year-old female admitted back on 04/11/2020. She was transferred down from [facility]. She was admitted with a diagnosis of acute hypoxemic respiratory failure secondary to COVID pneumonia. Currently, she is on BiPAP with an IPAP of 14 and an EPAP of 6 and 100% or on AIRVO, at 60 L/m or an FiO2 of 90%. She is also on saline IV at 30 mL an hour. That will be increased up to 75 mL an hour. She's doing about the same today as yesterday. She did receive redesivir for 5 days and 2 doses of convalescent plasma. The patient has a history of nicotine dependence, obesity, and was negative for pulmonary embolism. The patient's chest x-ray is stable today. She has not gotten much better nor has she gotten much worse. She remains in the intensive care unit. She's in room 257. Progress note dated 05/10/2020. This is a 69-year-old female admitted back on 04/11/2020. She was admitted with a diagnosis of acute hypoxemic respiratory failure secondary to COVID 19 pneumonia. The patient was intubated on 04/24/2020, and because of failure to wean from mechanical ventilation, had a tracheostomy performed on May 05, along with a placement of a PEG tube. Currently, the patient remains on the mechanical ventilator. She is on the volume assist control modality with a rate of 32, breathing 38 times a minute, tidal volume 420, FiO2 of 45%, and PEEP of 8. Arterial blood gases show a PaO2 of 85, a PaCO2 of 33, and a pH of 7.37. Currently, the patient's getting saline at 20 mL an hour, dexmedetomidine, at 0. 6 mcg/kg/h, and Nepro at 22 mL now with a goal of 22 mL an hour. The patient is hemodialysis dependent. She currently remains on daptomycin and Zosyn. Today, the patient's Ativan IV was discontinued in favor of oral Xanax. We will add a fentanyl patch at 15 g every 72 hours, and also start the patient on Seroquel. The patient should be considered for transfer to long-term acute care (LTAC). The patient has a history of nicotine dependence, obesity, and was negative for pulmonary embolism. She did receive remdesivir, and convalescent plasma. Progress note dated 05/11/2020 This is a 69-year-old female, admitted back on 04/11/2020. She was admitted with a diagnosis acute hypoxemic respiratory failure secondary to COVID 19 pneumonia. The patient was intubated and mechanically ventilated on 04/24/2020, and subsequent to that, because of failure to wean from mechanical ventilation, had a tracheostomy performed on May 05, along with placement of a PEG feeding tube. Currently, the patient remains on mechanical ventilator has not made any progress towards weaning her extubation. Currently, she is on the volume assist control mode with a rate of 32, and spontaneous respirations of 38, tidal volume 420, FiO2 45%, and a PEEP of 8. Arterial blood gases show a PaO2 of 69, a PaCO2 of 32, and a pH is 7.40. This blood gases consistent with a relative hypoxemia, and a mixed acid-base disturbance including a combined respiratory alkalosis and mild metabolic acidosis. Currently, the patient is on propofol at 50 mics per kilogram per minute, saline at 40 mL an hour, and vital high protein at 32, with a goal of 42 mL an hour. Yesterday, she had hemodialysis. 1 L was removed, but the patient became hypotensive during dialysis. Also, yesterday, I called the transfer team at [facility], using the phone number, [phone]. I initially spoke to the transfer nurse Hans, and then spoke to the physician responsible for transfers, which was an ER physician ( Dr. Leyva sp???). I explained the case to him, and he agreed, that they would be nothing that they [facility] would offer this patient more than warmer currently doing here. The patient was not a candidate for ECMO. I also spoke to a family member yesterday about the patient. I explained to him, that the patient's overall prognosis was poor but they continued to want full life support which I acknowledged. I told him that was their decision. I also explained, that I thought it was appropriate to look at a long-term acute care facility for possible transfer. I explained to him, that we would have to find a suitable location that could handle her current needs, and she would have to be stable before transfer could be considered. Finally, as an attempt to get her off dexmedetomidine and/or propofol, we added a fentanyl patch, Xanax, when necessary Dilaudid, and scheduled Seroquel. Progress note dated 05/12/2020. 69-year-old female admitted back on 04/11/2020, with a diagnosis of acute hypoxemic respiratory failure secondary to COVID 19 pneumonia. The patient was intubated and mechanically ventilated on 04/24/2020, and because of failure to wean from mechanical ventilation, underwent a tracheostomy and PEG tube placement on May 05. Currently, the patient remains on the volume assist control mode, rate 32, tidal volume 420, FiO2 45%, and PEEP of 12. Blood gases show a PaO2 of 67, a PaCO2 of 45, and a pH of 7.35. The patient's getting saline at 40 mL an hour, and vital high protein at goal which is 42 mL an hour. We added a fentanyl patch, Xanax, Dilaudid when necessary, and Seroquel, to get the patient off of propofol. White count today is 17.6, hemoglobin 8.7, hematocrit 25.8, and platelet count 111,000. Sodium is 138, potassium 3.8, ch lorides 104, CO2 25, anion gap is 9, BUN 52, and creatinine 2.90. Chest x-ray continues to show bilateral patchy infiltrates, more so on the left lower lobe, and a midline tracheostomy tube. A blood culture from May 03 showed staph epidermidis, a urine sample from May 03 showed Escherichia coli, and the sputum has shown evidence of Brittney albicans. Objective - Vital Signs Vital signs: Vital Signs Temp 98.1 F 05/12/20 04:00 Pulse 83 05/12/20 06:00 Resp 36 H 05/12/20 06:00 BP 119/59 05/12/20 06:00 Pulse Ox 90 L 05/12/20 06:00 Intake & Output 05/11/20 05/11/20 05/12/20 06:59 18:59 06:59 Intake Total 9974.579 2194.688 1025 Output Total 65 3335 55 Balance 1246.945 -2242.312 970 Weight 120.5 kg 123.1 kg Intake: IV 516 559 473 0.9% KVO 480 520 440 Pressure Bag 36 39 33 Intake, IV Titration 353.945 201.688 Amount Norepinephrine 8 mg In 107.053 Sodium Chloride 0.9% 250 ml @ 0.05 MCG/KG/MIN 11. 939 mls/hr IV .[id number] [facility] Rx#:[id number] propofoL 500 mg In Empty 246.892 201.688 Bag 1 bag @ Titrate IV . Q0M [facility] Rx#:[id number] Tube Feeding 322 32 462 Hemodialysis 300 Other 120 90 Output: Urine 65 35 55 Hemodialysis 3300 Other: Voiding Method Indwelling Catheter Indwelling Catheter Indwelling Catheter ABP, PAP, CO, CI - Last Documented Arterial Blood Pressure 142/57 - Exam Sedated, tracheostomy tube in place. On the mechanical ventilator. The patient is currently off of all IV sedation. HEENT examination is grossly unremarkable. Neck supple. Full range of motion. No adenopathy thyromegaly or neck vein distention. Midline tracheostomy noted. Cardiovascular examination reveals regular rhythm rate. S1-S2 normal. No S3 or S4. No discernible murmur noted. Heart sounds distant. Heart rate 83 bpm. Lungs reveal diffuse bilateral rhonchi. Breath sounds equal. No wheezes. No crackles. Breath sounds are diminished throughout. Breath sounds are unchanged. Abdomen soft bowel sounds are heard. No masses or tenderness. PEG tube noted. Extremities are intact. Mild edema. No cyanosis or clubbing. Skin is without rash or lesion. Multiple areas of ecchymoses. Neurologic examination reveals a poorly responsive patient. - Labs CBC & Chem 7: 05/12/20 05:00 05/12/20 05:00 Labs: Abnormal Lab Results - Last 24 Hours (Table) 05/11/20 05/11/20 05/11/20 Range/Units 08:25 12:43 17:45 WBC (3.8-10.6) k/uL RBC (3.80-5.40) m/uL Hgb (11.4-16.0) gm/dL Hct (34.0-46.0) % Plt Count (150-450) k/uL Neutrophils # (1.3-7.7) k/uL Lymphocytes # (1.0-4.8) k/uL ABG pO2 (83-108) mmHg ABG Total CO2 (19-24) mmol/L ABG O2 Saturation (94-97) % BUN (7-17) mg/dL Creatinine (0.52-1.04) mg/dL Glucose (74-99) mg/dL POC Glucose (mg/dL) 103 H 117 H (75-99) mg/dL Calcium (8.4-10.2) mg/dL Phosphorus 7.1 H (2.5-4.5) mg/dL ALT (4-34) U/L Total Protein (6.3-8.2) g/dL Albumin (3.5-5.0) g/dL 05/12/20 05/12/20 05/12/20 Range/Units 00:21 05:00 05:00 WBC 17.6 H (3.8-10.6) k/uL RBC 2.76 L (3.80-5.40) m/uL Hgb 8.7 L (11.4-16.0) gm/dL Hct 25.8 L (34.0-46.0) % Plt Count 111 L (150-450) k/uL Neutrophils # 16.4 H (1.3-7.7) k/uL Lymphocytes # 0.5 L (1.0-4.8) k/uL ABG pO2 (83-108) mmHg ABG Total CO2 (19-24) mmol/L ABG O2 Saturation (94-97) % BUN 52 H (7-17) mg/dL Creatinine 2.90 H (0.52-1.04) mg/dL Glucose 107 H (74-99) mg/dL POC Glucose (mg/dL) 104 H (75-99) mg/dL Calcium 7.7 L (8.4-10.2) mg/dL Phosphorus 6.6 H (2.5-4.5) mg/dL ALT 46 H (4-34) U/L Total Protein 4.2 L (6.3-8.2) g/dL Albumin 2.0 L (3.5-5.0) g/dL 05/12/20 Range/Units 05:25 WBC (3.8-10.6) k/uL RBC (3.80-5.40) m/uL Hgb (11.4-16.0) gm/dL Hct (34.0-46.0) % Plt Count (150-450) k/uL Neutrophils # (1.3-7.7) k/uL Lymphocytes # (1.0-4.8) k/uL ABG pO2 67 L (83-108) mmHg ABG Total CO2 26 H (19-24) mmol/L ABG O2 Saturation 92.2 L (94-97) % BUN (7-17) mg/dL Creatinine (0.52-1.04) mg/dL Glucose (74-99) mg/dL POC Glucose (mg/dL) (75-99) mg/dL Calcium (8.4-10.2) mg/dL Phosphorus (2.5-4.5) mg/dL ALT (4-34) U/L Total Protein (6.3-8.2) g/dL Albumin (3.5-5.0) g/dL Microbiology - Last 24 Hours (Table) 05/04/20 18:49 Blood Culture - Final Blood No Growth after 144 hours 05/06/20 11:00 Blood Culture - Preliminary Blood No Growth after 120 hours 05/06/20 11:00 Blood Culture - Preliminary Blood No Growth after 120 hours Assessment and Plan Assessment: COVID 19 pneumonia/pneumonitis, with acute hypoxemic respiratory failure, status post intubation on April 24, with failure to wean, and tracheostomy and PEG tube placement on 05/05/2020. Paroxysmal atrial fibrillation with RVR. Acute kidney injury secondary to COVID 19 infection, currently hemodialysis dependent. Elevated liver enzymes, secondary to viral pneumonia. Gram-positive bacteremia. Status post bronchoscopy for repositioning of tracheostomy tube on May 07. History of previous hysterectomy. Remote history of tobacco use. Obesity Elevated d-dimer, without evidence of pulmonary embolism. Escherichia coli urinary tract infection. Plan: Plan dated 05/10/2020. We will attempt to get the patient off of dexmedetomidine, and onto a combination of fentanyl patch, Seroquel, and Xanax. Ativan was discontinued. We'll continue the tube feeds with Nepro at 22 cc's per hour which is goal. In addition, the patient remains on daptomycin and Zosyn. The patient remains on mechanical ventilator on the volume assist control modality. The patient's corticosteroids will be reduced prednisone 30 mg a day. We will attempt to get the patient transferred to long-term acute care. The patient did receive full therapy including 2 units, some plasma, Decadron, vitamin C, vitamin D3, zinc, and remdesivir. Overall prognosis remains poor given her long hospital stay, multiple interventions, and evidence of multiple organs which have failed. To follow make additional recommendations. Plan dated 05/11/2020. Currently, white blood count is 26.2, hemoglobin 10, hematocrit 28.6, and platelet count 132,000. Sodium is 133, potassium 4.1, chlorides 102, CO2 18, anion gap 13, and BUN 73 with a creatinine of 3.49. Calcium is 7.6. Chest x- ray continues to show reticular nodular infiltrates throughout both lung mendoza, without significant change. All medications are reviewed. The patient has received full therapy for her illness including 2 units of convalescence plasma, Decadron, vitamin C, vitamin D3, zinc, and remdesivir. In addition, the patient remains on daptomycin and Zosyn. I did make a phone call to the transfer team at [facility] yesterday, and they refused to accept this patient. They said, there is nothing more that they would do there are that were not currently doing here. Currently, the patient remains on propofol at 50 mics per kilogram per minute. We're attempting to get her off of this medication, so that we might consider transfer to long-term acute care facility. Currently, we've added Seroquel, Dilaudid when necessary, fentanyl patch, and Xanax. We will continue to manage this patient fully and aggressively. Prognosis is guarded as his been mentioned before. Plan dated 05/12/2020. X-rays, labs, and medications are all reviewed today. Currently, the patient is off of the propofol. This was accomplished by adding Xanax, Seroquel, when necessary Dilaudid, and a fentanyl patch. We will attempt to reduce these med ications as we move along. Currently, she is hemodynamically stable. She remains on the mechanical ventilator at 45% and 12 of PEEP. Arterial blood gases show a PaO2 of 67, PaCO2 45, pH is 7.35. She remains on daptomycin. Overall prognosis is guarded. We will continue to follow. Additional re commendations and suggestions are forthcoming. The patient was not accepted in transfer to [facility]. I spoke to the transfer nurse and transfer physician myself. This is relayed back to the family. Time with Patient: Greater than 30
[2020-05-12] MEDS ORDERED: POTASSIUM BICARBONATE/CIT AC 20 MEQ TABLET.EFF NG-TUBE SCH (08:00)
--- NOTE | 2020-05-12 08:26 | P.PN ---
Subjective Patient is seen in follow-up for acute kidney injury, currently hemodialysis dependent. She is receiving tube feeding. Off vasopressors. Remains oliguric. Diuretic unresponsive. Hemodynamically currently stable. Vital signs are stable. General: Tracheostomy noted. HEENT: Neck is without jugular venous distension. LUNGS: Breath sounds decreased. HEART: Rate and Rhythm are regular. ABDOMEN: Soft. EXTREMITITES: 2+ edema. Objective - Vital Signs Vital signs: Vital Signs Temp 98.1 F 05/12/20 04:00 Pulse 80 05/12/20 07:00 Resp 26 H 05/12/20 07:00 BP 118/57 05/12/20 07:00 Pulse Ox 92 L 05/12/20 07:00 Intake & Output 05/11/20 05/12/20 05/12/20 18:59 06:59 18:59 Intake Total 2582.673 5236 85 Output Total 3335 55 10 Balance -2242.312 970 75 Weight 123.1 kg Intake: IV 559 473 43 0.9% KVO 520 440 40 Pressure Bag 39 33 3 Intake, IV Titration 201.688 Amount propofoL 500 mg In Empty 201.688 Bag 1 bag @ Titrate IV . Q0M [facility] Rx#:[id number] Tube Feeding 32 462 42 Hemodialysis 300 Other 90 Output: Urine 35 55 10 Hemodialysis 3300 Other: Voiding Method Indwelling Catheter Indwelling Catheter ABP, PAP, CO, CI - Last Documented Arterial Blood Pressure 147/60 - Labs CBC & Chem 7: 05/12/20 05:00 05/12/20 05:00 Labs: Abnormal Lab Results - Last 24 Hours (Table) 05/11/20 05/11/20 05/11/20 Range/Units 08:25 12:43 17:45 WBC (3.8-10.6) k/uL RBC (3.80-5.40) m/uL Hgb (11.4-16.0) gm/dL Hct (34.0-46.0) % Plt Count (150-450) k/uL Neutrophils # (1.3-7.7) k/uL Lymphocytes # (1.0-4.8) k/uL ABG pO2 (83-108) mmHg ABG Total CO2 (19-24) mmol/L ABG O2 Saturation (94-97) % BUN (7-17) mg/dL Creatinine (0.52-1.04) mg/dL Glucose (74-99) mg/dL POC Glucose (mg/dL) 103 H 117 H (75-99) mg/dL Calcium (8.4-10.2) mg/dL Phosphorus 7.1 H (2.5-4.5) mg/dL ALT (4-34) U/L Total Protein (6.3-8.2) g/dL Albumin (3.5-5.0) g/dL 05/12/20 05/12/20 05/12/20 Range/Units 00:21 05:00 05:00 WBC 17.6 H (3.8-10.6) k/uL RBC 2.76 L (3.80-5.40) m/uL Hgb 8.7 L (11.4-16.0) gm/dL Hct 25.8 L (34.0-46.0) % Plt Count 111 L (150-450) k/uL Neutrophils # 16.4 H (1.3-7.7) k/uL Lymphocytes # 0.5 L (1.0-4.8) k/uL ABG pO2 (83-108) mmHg ABG Total CO2 (19-24) mmol/L ABG O2 Saturation (94-97) % BUN 52 H (7-17) mg/dL Creatinine 2.90 H (0.52-1.04) mg/dL Glucose 107 H (74-99) mg/dL POC Glucose (mg/dL) 104 H (75-99) mg/dL Calcium 7.7 L (8.4-10.2) mg/dL Phosphorus 6.6 H (2.5-4.5) mg/dL ALT 46 H (4-34) U/L Total Protein 4.2 L (6.3-8.2) g/dL Albumin 2.0 L (3.5-5.0) g/dL 05/12/20 Range/Units 05:25 WBC (3.8-10.6) k/uL RBC (3.80-5.40) m/uL Hgb (11.4-16.0) gm/dL Hct (34.0-46.0) % Plt Count (150-450) k/uL Neutrophils # (1.3-7.7) k/uL Lymphocytes # (1.0-4.8) k/uL ABG pO2 67 L (83-108) mmHg ABG Total CO2 26 H (19-24) mmol/L ABG O2 Saturation 92.2 L (94-97) % BUN (7-17) mg/dL Creatinine (0.52-1.04) mg/dL Glucose (74-99) mg/dL POC Glucose (mg/dL) (75-99) mg/dL Calcium (8.4-10.2) mg/dL Phosphorus (2.5-4.5) mg/dL ALT (4-34) U/L Total Protein (6.3-8.2) g/dL Albumin (3.5-5.0) g/dL Microbiology - Last 24 Hours (Table) 05/04/20 18:49 Blood Culture - Final Blood No Growth after 144 hours 05/06/20 11:00 Blood Culture - Preliminary Blood No Growth after 120 hours 05/06/20 11:00 Blood Culture - Preliminary Blood No Growth after 120 hours Assessment and Plan Plan: Assessment: 1. Acute kidney injury secondary to ATN secondary to hypotension, hemodynamic instability and infection. Started on hemodialysis April 26. Remains oliguric- diuretic unresponsive. 2. Acute hypercapnic/hypoxic respiratory failure status post tracheostomy. 3. Metabolic acidosis secondary to acute kidney injury. Maintained on oral bicarbonate. Improved. 4. COVID-19 infection. PCR from May 07 negative. 5. A. fib with RVR maintained on Lopressor and amiodarone. 6. Hyponatremia secondary to acute kidney injury. Hypervolemic. Improved. 7. Staph bacteremia maintained on antibiotics. Infectious disease following. 8. Hyperphosphatemia secondary to acute kidney injury. Plan: Continue with daily hemodialysis with ultrafiltration as tolerated. Maintain tube feeding. Continue to monitor renal function and urine output. Monitor for renal recovery. Add PhosLo.
[2020-05-12] MEDS: CHLORHEXIDINE GLUCONATE 15 ML CUP MUCOUS MEM SCH ×2 (08:46→20:52)
[2020-05-12] MEDS: ZINC SULFATE 220 MG CAP PO SCH (08:46)
[2020-05-12] MEDS: QUEtiapine 50 MG TAB PO SCH ×2 (08:46→20:52)
[2020-05-12] MEDS: ASCORBIC ACID 500 MG TAB PO SCH (08:46)
[2020-05-12] MEDS: SODIUM BICARBONATE TAB 650 MG TAB PO SCH ×4 (08:47→20:52)
[2020-05-12] MEDS: AMIODARONE 200 MG TAB PO SCH ×2 (08:47→20:52)
[2020-05-12] MEDS: FAMOTIDINE 20 MG TAB OG-TUBE SCH (08:47)
[2020-05-12] MEDS: MULTIVITAMINS, THERA 1 EACH TAB PO SCH (08:47)
[2020-05-12] MEDS: ALPRAZolam 0.5 MG TAB PO SCH ×4 (08:47→20:52)
[2020-05-12] MEDS: FOLIC ACID 1 MG TAB PO SCH (08:47)
[2020-05-12] MEDS: THIAMINE 100 MG TAB PO SCH (08:48)
[2020-05-12] MEDS: predniSONE 10 MG TAB PO SCH (08:48)
[2020-05-12] MEDS: ENOXAPARIN 30 MG/0.3 ML SYRINGE SQ SCH ×2 (08:48→20:52)
[2020-05-12] MEDS: CHOLECALCIFEROL 25 MCG (1000 IU) TABLET PO SCH (08:48)
--- NOTE | 2020-05-12 09:08 | XR ---
EXAMINATION TYPE: XR chest 1V portable DATE OF EXAM: 05/12/2020 COMPARISON: Chest x-ray 03/10/2021 HISTORY: Abnormal chest x-ray, ICU management TECHNIQUE: Single frontal view of the chest is obtained. FINDINGS: Tracheostomy tube is overlying the tracheal air column. Bilateral interstitial and airspac e disease is again noted. No evident pneumothorax, difficult to exclude a small pleural effusion. The re are overlying artifacts. Left-sided PICC line shows the distal tip over the left innominate vein r egion. IMPRESSION: Findings are similar to prior exam. Correlate for pneumonia.
[2020-05-12] MEDS: ALBUTEROL HFA INHALER INHALATION SCH ×4 (09:15→19:55)
--- NOTE | 2020-05-12 11:22 | CDI ---
Documentation Clarification Form Date: 05/12/2020 09:33:00 AM From: Pamela Wright RN CCDS Admit Date: 04/11/2020 04:50:00 PM Patient Name: Olga Mccoy Visit Number: [id number] Discharge Date: ATTENTION: The Clinical Documentation Specialists (CDI) and [facility] Coding Staff appreciate your assistance in clarifying documentation. Please respond to the clarification below the line at the bottom and electronically sign. The CDI & [facility] Coding staff will review the response and follow-up if needed. Please note: Queries are made part of the Legal Health Record. If you have any questions, please contact the author of this message via ITS. Dr. Amisha Aguila, Gram-positive bacteremia, addressed by infectious disease on the case. Could be catheter related sepsis. Documented in the Internal Medicine progress note 05/09. History/Risk Factors: 69-year-old female presented as a transfer from [place] positive COVID, worsening shortness of breath. Medical history: HTN Hypothyroidism Clinical Indicators: Admitting Diagnosis: Acute COVID 19 Infection, Acute bilateral interstitial pneumonia with Acute hypoxic respiratory failure. Documented in the Network Support Manager progress note 05/05 - 05/09Again, the major concern at this point is the fact that she has E. coli infection in the urine, and she has positive blood cultures what seems to be staph epidermidis. And it is most likely related to catheter related sepsis. Documented in the Network Support Manager progress note 05/05 - atient is having positive blood cultures, and the concern is catheter related sepsis especially with the patient having a dialysis catheter in her right groin, and she has a PICC line. Lab findings: 05/03 Urine culture results 05/05: Escherichia coli and Brittney albicans 05/03 Blood collection, culture results 05/04: Gram positive, 05/06 Organism Staphylococcus epidermidis. 05/06 Order for Blood drawn from PICC and Hemodialysis catheters: No growth after 120 hours. 05/05 Vital Signs: Temp 96.3 F Axillary; B/P 131/46; HR 54; RR 32; SpO2 94% Mechanical Ventilation. Treatment: Antibiotics: 04/21 Zosyn IVPB Q8HR changed 04/26 Q12HR d/c 05/09; 05/04 Daptomycin IVPB Q48HR IV Bolus: 04/24 0.9ns 1L Bolus; 04/25 0.9ns 1.5L Bolus. Other: 04/30 Norepinephrine IVPB In your professional opinion, can you please clarify source of the Sepsis? Sepsis due to PICC line Sepsis due to kilgore catheter Sepsis due to Dialysis catheter Other, please specify Unable to determine (Last Revision: July 2017) Positive blood cultures a contamination but patient was admitted with sepsis and was treated for septic shock MTDD
[2020-05-12] MEDS: CALCIUM ACETATE 667 MG TAB PO SCH ×2 (12:04→18:39)
[2020-05-12] MEDS: DAPTOmycin 750 MG in SODIUM CHLORIDE 0.9% 50 ML IVPB SCH (12:04)
--- NOTE | 2020-05-12 15:41 | P.PN ---
Subjective Progress Note Date: 05/12/20 Ms. Mccoy is a 69-year-old female with a past medical history of hypertension and thyroid disorder admitted to the hospital for acute hypoxic respiratory failure secondary to COVID 19 pneumonia. Patient has extensive bilateral interstitial pneumonia. She is on a low and pulmonary Dr. Mathews is following the patient. Patient received a convalescent plasma, is also on Remdesivir. On 04/17/2020- This morning patient was evaluated in the ICU. Patient is comfortably sitting in a chair states that her breathing is improving gradually. She denies having any chest pain or palpitations. No cough or hemoptysis. She denies having any swelling or for lower extremities. No abdominal pain nausea vomiting or diarrhea. She denies having any dysuria or hematuria, she has a Bryan's catheter in place. On reviewing her vitals temperature 98.1 heart rate 75 is 5817, blood pressure 1:30 bradycardia. Saturating at 96% on a Aervo -60%. On 04/18/2020 - patient was seen and examined in the ICU. Patient is sitting in a chair by the bedside, states that her breathing has worsened compared to yesterday. Patient is on high flow Airvo, saturating in the low 90s. She denies having any chest pain or palpitations. She complains of cough that is nonproductive. Patient had a chest x-ray done showing stable bilateral air space disease. As the patient was having few episodes of tachycardia, she was started on Lopressor this morning. Patient's inflammatory markers are noted to be high. On reviewing her vitals saturating at 90% on high flow Airvo, heart rate 70s to 80s, respiratory rate 20-25, blood pressure 106-67. In reviewing her labs white count of 29.3, hemoglobin 16.8, platelets 369. D-dimer 6.99, LDH 2969, CRP 63.9. On 04/19/2020 - patient is seen and examined in the ICU. She is currently on BiPAP, as her respiratory status has worsened compared to yesterday. Patient denies having any chest pain or palpitations. No abdominal pain nausea vomiting or diarrhea. No dysuria or hematuria. She is on BiPAP 14/6 and 100% FiO2. On reviewing her vitals temperature is 99.2, respiratory rate is 25, heart rate 70, blood pressure 10 9 x 71. Reviewing the labs white count of 27.3, hemoglobin 17.4, platelets 314. Sodium 133, potassium 4.4, chloride 90, bicarbonate 35, BUN 31, creatinine 0.72. Ferritin 3195, CRP 217 and LDH 2747. 04/20/2020 This is a pleasant 69 years old female with multiple medical problems was admitted for bilateral Covid pneumonia, she is currently on aervo at 90%/60 L of oxygen, saturating 89%. Rest of Vitas looks stable Also she is on BiPAP All the night. She is able to eat and drink, no pressors She is on normal saline at 75 mL/h with adequate urine output Patient is currently ON Medrol 40 mg twice daily, Lovenox 60 mg twice Mary and vitamin C and zinc. She finished her remdisvir and convelecent plasma. 04/21/2020 Patient remains in the ICU bed and respiratory support for her bilateral Covid pneumonia. She still dyspneic especially with exertion and she still needs BiPAP during the day shift. Also she had a fever today of 102.2. Patient is empirically on Zosyn/calcitonin check today showing normal level at 0.07. She has leukocytosis of 29K. I agree with Zosyn and I recommended to continue with that for now. Also patient is on steroids 60 mg every 6 hours. As there is no more significant progress progress in her clinical picture Glucose is 123 and inflammatory markers still elevated 04/22/2020 this is a pleasant 69 yo F who is admitted to the ICU for covid pneumonia, she is still on BiPAP dependant , TNP is started for her nutrition for this reasone. her oxygen saturation is on low 90s% cxr: diffuse interstitial opacities and worsening airspace disease in the left lower lung. consider interstitial edema wbc is sligtly less 26K, she is currently continued on zosyn , and solumedrol 60 mg. and normal saline increased to 150 ml/hr. and lovenox 60 mg BID she finised her Remdisvir and convelescent Plasma. 04/23/2020 Patient looks very tired, she came Off the BiPAP today morning and she was placed back on airvo at 60 L she is back and forth between BiPAP and airvo, however she probably will need BiPAP at night Inflammatory markers and d-dimer increased, ferritin 3100 up to 3700 and d-dimer 3 up to 5 Chest x-ray showing bilateral middle and lower infiltrates with slight improvement Treatments with antibiotics Zosyn, fluconazole was added today. Also she is also on Solu-Medrol 60 mg, normal sling was decreased to 50 mL per hour, Lovenox 60 mg twice daily, TPN and she is on vitamin C and zinc 04/24/2020 Patient today her clinical condition deteriorated, she was hypoxic this morning with oxygen saturation in the 70s percent and she was tachycardic with heart rate 140-150, patient ended up being intubated in the morning and she was in an you onset of A. fib and started on Cardizem drip on 15 mg however her heart rate was still elevated, cardiology team were consulted, blood pressure was on the low normal side. Amiodarone drip was started. Cardiology team and Cardizem drip was shut to 15 mg/h. Also insulin drip for hyperglycemia with sugar more than 300. 04/25/2020 Patient was intubated yesterday for deteriorated respiratory status, ABG showing elevated pCO2 on 496 with acidosis. 7.0 and 7.1. Oxygen saturation is acceptable at 107. She remains on mechanical ventilation managed by pulmonary/critical care team, currently her bruits and draped with before meals at 40 to help with her acidosis. Her creatinine worsened today 0.5 up to 1.3, with potassium elevated as well as 5.5 nephrology team were consulted who ordered insulin/dextrose 50%, sodium bicarb 1 and Lasix 80 mg 1. [employer] recommended hemodialysis and no improvement in 24 hours Chest x-ray showing pneumonia and edema which is stable from yesterday. Sugar improved and we could switch her insulin drip to insulin sliding scale A. fib is improved and converted to sinus rhythm with amiodarone which is swi tched to [facility] per [employer], She Is Already on Anticoagulation 04/26/20 Patient remains in the ICU sedated and intubated with pulmonary/ critical care team following the case closely. Showing trending down leukocytosis to 20 6.1K. Creatinine up to 2.8, Patient is developing anuria with acute kidney injury, nephrology evaluation is appreciated and hemodialysis is initiated. Chest x-ray showing interstitial infiltrate especially in the mid to lower lungs Echocardiogram showed ejection fraction of 55-60%, and atrial fibrillation improved yesterday with amiodarone She remains on Solu-Medrol, Zosyn and fluconazole, normal sinus 50 and vitamin C and zinc Lovenox dose was adjusted to renal function down to 50 mg daily Prognosis remains guarded 04/27/2020 Patient with bilateral: With pneumonia that her purse and eventually got intubated, pulmonary/critical care team and several consultants are following the case, vent management as per pulmonary team. She has leukocytosis of 13.8 K. Creatinine today is 3.37 Patient undergoing hemodialysis for the last 2-3 days for acute kidney injury and [facility] Patient A. fib heart rate becomes uncontrolled today and her amiodarone to switch to a drip. Other medication including Solu-Medrol 60 mg, vitamin C and zinc, Zosyn and fluconazole, she is on normal saline at 50 mL/h and Lovenox dose dropped to 30 mg daily 04/28/2020 Patient remains intubated and sedated in the ICU, followed closely by critical care team. Vital showing tachycardia and tachypnea. WBC is 30 3.5K. Creatinine 3.8, sodium 134. Sugar is controlled. Inflammatory markers are elevated. She is undergoing hemodialysis today Chest x-ray from today showing no change from last one yesterday Medication-hernandez he remains on Solu-Medrol, Zosyn, 30 mg of Lovenox daily which is renal dose and amiodarone drip. Normal saline at 50 mm was discontinued today 04/29/2020 This is a pleasant 69 years old female with bilateral, with pneumonia. Patient remains in the ICU sedated and intubated with pulmonary/critical care team following the case closely. Normal sedation holiday for the patient currently She already finished her treatment with remdesivir and convalescent plasma, and currently she is on vitamin C and zinc. She was on steroids in the form of high dose of Solu-Medrol 60 mg and Zosyn and fluconazole for possible bacteria and fungal infection associated with viral infection. Patient course was complicated by renal failure and new or so she underwent hemodialysis, last HD was yesterday, she is kept on renal dose of Lovenox 30 mg daily. Other compli cation is atrial fibrillation with RVR which is currently controlled with oral amiodarone and low-dose of Cardizem drip. Patient condition remains critical and she kept on mechanical ventilation with close monitoring Procalcitonin is unchanged yesterday at 0.39 compared to one week ago at 0.39. We'll order another test tomorrow 04/30/2020 Patient is seen and evaluated and follow-up continues to remain closely monitored in the ICU. Patient continues to be on a mechanical ventilator intubated and sedated currently off paralytics. Patient being followed by multiple medical consultations including cardiology, pulmonary, nephrology. Patient currently receiving hemodialysis for ultrafiltration and became extremely hypotensive maxing out on pressors and dialysis was aborted. Patient prognosis is extremely guarded and poor at this time. Patient continues to be on IV steroids along with Lovenox vitamin C and D and zinc supplements and will continue. Patient is also maintained on IV antibiotics in the form of Zosyn and vancomycin being added. Patient currently off of IV amiodarone and IV Cardizem and transitioned to oral amiodarone and will continue at this time. Chest x-ray continues to show interstitial pneumonia with bilateral basilar infiltrates and tiny effusions. She also had an abdominal x-ray showing nonspecific abdomen with no diagnostic evidence of obstruction. White blood count today is 27.9, hemoglobin is stable at 12.7, d-dimer is elevated although slowly trending down at 3.04, current sodium is 129, potassium is 5.9, BUN is 103 with a creatinine of 4.97. Attempts at ultrafiltration today his potassium is elevated. Nephrology is following closely. 05/01/20 Patient remains in the ICU intubated on mechanical ventilation with pulmonary/critical care team following closely. Patient today underwent sedation holiday and into hours she started becoming agitated and developed atrial fibrillation's with RVR, she has to be placed back on amiodarone drip and Cardizem drip 10 mg per hour before it was converted to sinus rhythm again Currently she is tachypneic with a breathing rate around 32. She is saturating 91% on FiO2 of 60% Leukocytosis 27.9 yesterday and 24.6K today. D-dimer stable at 3.7 so she kept on the same dose of Lovenox Inflammatory markers including LDH, protein and C-reactive protein went up slightly today. Patient remains anuric and undergoing hemodialysis She remains on Zosyn and fluconazole, she got 2 doses of IV vancomycin yesterday and today. Also she is on zinc and vitamin C, Lovenox 30 mg daily. Diflucan was stopped 05/02/2020 Patient remains intubated and sedated in the ICU was followed closely by pulmonary/critical care team and for vent management. Patient also with A. fib on several occasions needing Cardizem and amiodarone, cardiology following the patient Patient is still undergoing hemodialysis for anuria and acute kidney injury, nephrology team on the case x-ray showed improvement bibasilar infiltrates She is on some Medrol 60 mg daily, antibiotics were stopped 2 days ago. She is also on Lovenox 30 mg daily, vitamin C and zinc 05/03/2020 Patient is seen this morning currently remains in the ICU receiving hemodialysis today. Multiple medical consultations following. Patient remains on mechanical vent and is intubated and sedated and will continue at this time. D-dimer is elevated at 5.50, sodium is 132, potassium is 5.9, BUN is 108, current creatinine is 4.87. White blood count is 31.3 and hemoglobin is 11.3. Patient blood pressure is elevated as well and has been continuing with daily dialysis. Chest x-rays today show interstitial infiltrates or edema in the mid and lower lungs continue with slight improvement on the left. Patient remains on IV antibiotics in the form of Zosyn and will continue at this time. Infectious disease is following as well. 05/04/2020 Patient is seen in follow-up currently remains in the ICU. Surgical consult was placed for trach and PEG tube placement as patient continues to be on tube feedings and continues to be on a mechanical vent. Dimer elevated at 7.38. Nephrology also following as patient has been receiving hemodialysis and current creatinine today is 4.23 with a BUN of 98 and potassium is 5.9. Patient will be made nothing by mouth and tube feedings held for surgery tomorrow. Family continues to wish for full CODE STATUS. Sputum cultures preliminary showing Brittney albicans and urine showing gram-negative bacilli with Brittney albicans. Infectious disease is following. Patient is maintained on IV antibiotics in the form of Zosyn and daptomycin being added. Will await culture finalization. 05/05/2020 Patient continues to be in the ICU currently on a mechanical vent awaiting PEG tube and trach placement today with surgery. Multiple medical consultations following including nephrology. Potassium was 5.5 this morning and will correct prior to surgery patient will be receiving hemodialysis this afternoon. Infla mmatory markers trending down. Patient is maintained on IV antibiotics in the form of daptomycin along with Zosyn and will continue. Tube feedings on hold this morning for surgery. 05/06/2020 Patient is status post tracheostomy and PEG tube placement and will initiate tube feeds this afternoon per surgery. Patient is currently receiving hemodialysis and nephrology following closely. Patient to continue IV daptomycin and Zosyn. Infectious disease is following. Urine cultures finalized showing E. coli and Brittney. Patient's blood pressures have been on the lower end and elevated heart rate and cardiology following closely. Patient currently on levophed and oral amiodarone. Prognosis remains extremely poor and guarded. 05/07/2020 Patient is seen and evaluated this morning currently being closely monitored in the ICU remains on the mechanical vent via tracheostomy along with PEG tube feedings. Patient also continues to be on levophed and once again on amiodarone drip as patient developed atrial fibrillation with RVR yesterday. Multiple medical consultations following. Patient was seen and evaluated by anesthesia as patient continued to have an air leak that was present around the tracheostomy and patient underwent bronchoscope with Dr. Motta today. Patient continues to have generalized edema. Patient is maintained on hemodialysis although unable to tolerate today. Patient has resumed tube feedings and tolerating thus far. 05/08/2020 Patient remains on ventilatory support presently on norepinephrine which is being weaned off patient is on amiodarone drip and improvement at this time. Patient is being weaned off sedatives and narcotics. White blood cell count still remains elevated. Patient is presently on empiric Zosyn and and daptomycin patient is also on high-dose steroids at this time. 05/09/2020 Patient is still on ventilatory support assist-control ventilation FiO2 of 45% PEEP of 8 patient is off Flovent fentanyl and propofol was started on Precedex patient is still requiring hemodialysis. Chest x-ray showing interstitial infiltrates 05/10/2020 Patient continued on mechanical vent and continues to be on norepinephrine and oral amiodarone. Patient is also continued on propofol along with Precedex. Multiple medical consultations following. Patient to receive hemodialysis today. BUN is 77 with a creatinine of 3.59, potassium is 4.4, sodium is 134. 05/11/2020 Patient remains in the ICU on mechanical ventilation currently receiving hemodialysis today. White blood count continues to be elevated at 26.2, hemoglobin is stable at 10.0, sodium is 133, potassium is 4.1, BUN is 73 and creatinine is 3.49. Steroids have been adjusted to oral and receiving via PEG tube. Patient is maintained on tube feedings and will continue. Patient continues to be sedated on propofol. Multiple medical consultations following. Another discussion was had with the family about CODE STATUS and they wish for her to remain full code at this time. Patient prognosis is extremely poor and guarded. 05/12/2020 Patient remains in the ICU ventilator dependent and is off IV sedation and currently maintained on Dilaudid, fentanyl patch, , and Ativan via PEG tube and continues to be sedated. Family at the bedside continues to wish for the patie nt to remain a full code. Social work to discuss with family about treatment options moving forward and the possibility of long-term treatment center if patient is a candidate. Multiple medical consultations following. Patient will be receiving hemodialysis again today. Review of systems: Unable to obtain as patient's currently intubated and sedated Objective - Vital Signs Vital signs: Vital Signs Temp 98.1 F 05/12/20 04:00 Pulse 80 05/12/20 07:00 Resp 26 H 05/12/20 07:00 BP 118/57 05/12/20 07:00 Pulse Ox 92 L 05/12/20 07:00 Intake & Output 05/11/20 05/12/20 05/12/20 18:59 06:59 18:59 Intake Total 9931.343 3298 85 Output Total 3335 55 10 Balance -2242.312 970 75 Weight 123.1 kg Intake: IV 559 473 43 0.9% KVO 520 440 40 Pressure Bag 39 33 3 Intake, IV Titration 201.688 Amount propofoL 500 mg In Empty 201.688 Bag 1 bag @ Titrate IV . Q0M [facility] Rx#:[id number] Tube Feeding 32 462 42 Hemodialysis 300 Other 90 Output: Urine 35 55 10 Hemodialysis 3300 Other: Voiding Method Indwelling Catheter Indwelling Catheter ABP, PAP, CO, CI - Last Documented Arterial Blood Pressure 147/60 - Exam GENERAL: 69-year-old female, intubated and mechanically ventilated via tracheostomy HEENT: Pupils are round and equally reacting to light. EOMI. No scleral icterus. No conjunctival pallor. Normocephalic, atraumatic. No pharyngeal erythema. No thyromegaly. Tracheostomy noted CARDIOVASCULAR: S1 and S2 present. No murmurs, rubs, or gallops. PULMONARY: Bilateral crackles and rhonchi noted on exam ABDOMEN: Soft, nontender, nondistended, normoactive bowel sounds. No palpable organomegaly. PEG tube noted MUSCULOSKELETAL: No joint swelling or deformity. EXTREMITIES: No cyanosis, clubbing, or pedal edema. Bilateral upper and lower extremity edema noted with 2+ pitting in the hands and lower extremities NEUROLOGICAL: Unable to assess, currently off sedation although continues to be unresponsive SKIN: No rashes. no petechiae. Note: Because of COVID 19 isolation, some of the history and physical exam findings are indirect and obtained from nursing staff, and other physician examinations to avoid unnecessary contact with the patient. - Labs CBC & Chem 7: 05/12/20 05:00 05/12/20 05:00 Labs: Abnormal Lab Results - Last 24 Hours (Table) 05/11/20 05/11/20 05/11/20 Range/Units 08:25 12:43 17:45 WBC (3.8-10.6) k/uL RBC (3.80-5.40) m/uL Hgb (11.4-16.0) gm/dL Hct (34.0-46.0) % Plt Count (150-450) k/uL Neutrophils # (1.3-7.7) k/uL Lymphocytes # (1.0-4.8) k/uL ABG pO2 (83-108) mmHg ABG Total CO2 (19-24) mmol/L ABG O2 Saturation (94-97) % BUN (7-17) mg/dL Creatinine (0.52-1.04) mg/dL Glucose (74-99) mg/dL POC Glucose (mg/dL) 103 H 117 H (75-99) mg/dL Calcium (8.4-10.2) mg/dL Phosphorus 7.1 H (2.5-4.5) mg/dL ALT (4-34) U/L Total Protein (6.3-8.2) g/dL Albumin (3.5-5.0) g/dL 05/12/20 05/12/20 05/12/20 Range/Units : 05:00 05:00 WBC 17.6 H (3.8-10.6) k/uL RBC 2.76 L (3.80-5.40) m/uL Hgb 8.7 L (11.4-16.0) gm/dL Hct 25.8 L (34.0-46.0) % Plt Count 111 L (150-450) k/uL Neutrophils # 16.4 H (1.3-7.7) k/uL Lymphocytes # 0.5 L (1.0-4.8) k/uL ABG pO2 (83-108) mmHg ABG Total CO2 (19-24) mmol/L ABG O2 Saturation (94-97) % BUN 52 H (7-17) mg/dL Creatinine 2.90 H (0.52-1.04) mg/dL Glucose 107 H (74-99) mg/dL POC Glucose (mg/dL) 104 H (75-99) mg/dL Calcium 7.7 L (8.4-10.2) mg/dL Phosphorus 6.6 H (2.5-4.5) mg/dL ALT 46 H (4-34) U/L Total Protein 4.2 L (6.3-8.2) g/dL Albumin 2.0 L (3.5-5.0) g/dL 05/12/20 Range/Units 05:25 WBC (3.8-10.6) k/uL RBC (3.80-5.40) m/uL Hgb (11.4-16.0) gm/dL Hct (34.0-46.0) % Plt Count (150-450) k/uL Neutrophils # (1.3-7.7) k/uL Lymphocytes # (1.0-4.8) k/uL ABG pO2 67 L (83-108) mmHg ABG Total CO2 26 H (19-24) mmol/L ABG O2 Saturation 92.2 L (94-97) % BUN (7-17) mg/dL Creatinine (0.52-1.04) mg/dL Glucose (74-99) mg/dL POC Glucose (mg/dL) (75-99) mg/dL Calcium (8.4-10.2) mg/dL Phosphorus (2.5-4.5) mg/dL ALT (4-34) U/L Total Protein (6.3-8.2) g/dL Albumin (3.5-5.0) g/dL Microbiology - Last 24 Hours (Table) 05/04/20 18:49 Blood Culture - Final Blood No Growth after 144 hours 05/06/20 11:00 Blood Culture - Preliminary Blood No Growth after 120 hours 05/06/20 11:00 Blood Culture - Preliminary Blood No Growth after 120 hours Assessment and Plan Assessment: COVID 19 pneumonia Status post tracheostomy and PEG tube placement Acute hypoxic respiratory failure-status post intubation and mechanical ventilation New onset A. fib with RVR, placed back on amiodarone oral, cardiology following Acute kidney injury with anuria status post hemodialysis, nephrology following Increased d-dimer without evidence of PE Hyponatremia, improved Leukocytosis, remains on daptomycin , infectious disease following Elevated inflammatory markers Hypertension, currently hypotensive receiving hemodialysis Hypothyroidism History of bilateral posterior tibial tendon repair Obesity with BMI of 40.2 DVT prophylaxis: Subcutaneous Lovenox GI prophylaxis: Pepcid Full code Plan: Continue with current medications. Patient receiving hemodialysis daily. Infectious disease along with pulmonary and cardiology is following. Patient continues to be on mechanical vent and is off of sedation and continues to be unresponsive. Candace at the bedside wishes for the patient to remain full code. Social work to discuss treatment options and the possibility of LTAC if patient is a candidate. Prognosis remains extremely poor and guarded.
--- NOTE | 2020-05-12 16:04 | P.PN ---
Progress Note - Text Progress Note Date: 05/12/20 No acute changes. Patient's PEG tube site is clean. Tracheostomies function. Patient will receive supportive care.
--- NOTE | 2020-05-12 16:20 | PN ---
PROGRESS NOTE DATE OF SERVICE: 05/12/2020 REASON FOR FOLLOWUP: 1. Positive blood culture. 2. Diarrhea. INTERVAL HISTORY: The patient is currently afebrile. The patient is hemodynamically stable. FiO2 is currently at 50%. The patient remains on the vent and is unable to provide any history. Still has diarrhea, but no worsening reported by nursing staff. PHYSICAL EXAMINATION: Blood pressure 131/52 with a pulse of 80, temperature 98.1. She is 91% on 50% FiO2. General description is an elderly female lying in bed in no distress. RESPIRATORY SYSTEM: Unlabored breathing with decreased intensity of breath sounds. No wheeze. HEART: S1, S2. Regular rate and rhythm. ABDOMEN: Soft. No tenderness. LABS: White count down to of 17.6, BUN of 52, creatinine 2.90. DIAGNOSTIC IMPRESSION AND PLAN: Patient with elevated white count, multifactorial, possibly steroid-related plus/minus pneumonia in this patient who did have positive blood culture with Staphylococcus epidermidis. The patient did have a dialysis catheter and a PICC line, on daptomycin, short course; to continue and monitor clinical course closely. MMODL / IJN: [id number] /
[2020-05-12 18:47] LABS: Glucose,Whole Blood 123 mg/dL (75-99)
[2020-05-13 00:10] LABS: Glucose,Whole Blood 90 mg/dL (75-99)
[2020-05-13] MEDS: INSULIN ASPART (NovoLOG) 100 UNIT/ML VIAL SQ SCH ×4 (00:10→20:30)
[2020-05-13] MEDS: HYDROmorphone 1 MG/ML 1 ML SYRINGE IVP PRN ×6 (00:11→20:20)
[2020-05-13] MEDS ORDERED: SODIUM CHLORIDE 0.9% 1,000 ML IV ONE ×2 (00:46→20:43)
[2020-05-13 03:54] LABS: HGB 8.5 gm/dL (11.4-16.0); MCH 32.3 pg (25.0-35.0); MCHC 34.2 g/dL (31.0-37.0); MCV 94.5 fL (80.0-100.0); Mean Platelet Volume 10.3; RBC 2.64 m/uL (3.80-5.40); RDW 14.7 % (11.5-15.5)
[2020-05-13 04:21] LABS: Platelet Count 97 k/uL (150-450)
[2020-05-13 05:16] LABS: ABG Base Excess -0.3 mmol/L; ABG HCO3 25 mmol/L (21-25); ABG Oxygen Saturation 93.4 % (94-97); ABG PCO2 43 mmHg (35-45); ABG PH 7.37 (7.35-7.45); ABG PO2 69 mmHg (83-108); ABG TCO2 26 mmol/L (19-24)
[2020-05-13 05:43] LABS: Calcium 7.8 mg/dL (8.4-10.2); Potassium 3.6 mmol/L (3.5-5.1)
[2020-05-13] MEDS: LEVOTHYROXINE 50 MCG TAB PO SCH (06:21)
[2020-05-13] MEDS: METOPROLOL TARTRATE 25 MG TAB PO SCH ×2 (06:21→17:22)
[2020-05-13] MEDS: CALCIUM ACETATE 667 MG TAB PO SCH ×3 (06:21→17:22)
[2020-05-13 06:30] LABS: Glucose,Whole Blood 80 mg/dL (75-99)
--- NOTE | 2020-05-13 07:26 | XR ---
EXAMINATION TYPE: XR chest 1V portable DATE OF EXAM: 05/13/2020 COMPARISON: 05/12/2020 INDICATION: Difficulty breathing dilated TECHNIQUE: Single frontal view of the chest is obtained. FINDINGS: The heart size is normal. The pulmonary vasculature is prominent. There is diffuse increased central lung markings present bilaterally. Tracheostomy tube is in the mid line. Small left pleural effusion may be present. IMPRESSION: 1. Clinical correlation recommended for congestive heart failure. Tracheostomy tube in the midline
[2020-05-13] MEDS: ENOXAPARIN 30 MG/0.3 ML SYRINGE SQ SCH ×2 (07:54→20:15)
[2020-05-13] MEDS: ALPRAZolam 0.5 MG TAB PO SCH ×4 (07:54→20:13)
[2020-05-13] MEDS: ASCORBIC ACID 500 MG TAB PO SCH (07:54)
[2020-05-13] MEDS: FAMOTIDINE 20 MG TAB OG-TUBE SCH (07:54)
[2020-05-13] MEDS: SODIUM BICARBONATE TAB 650 MG TAB PO SCH ×4 (07:54→20:14)
[2020-05-13] MEDS: ZINC SULFATE 220 MG CAP PO SCH (07:54)
[2020-05-13] MEDS: CHOLECALCIFEROL 25 MCG (1000 IU) TABLET PO SCH (07:54)
[2020-05-13] MEDS: QUEtiapine 50 MG TAB PO SCH ×2 (07:54→20:14)
[2020-05-13] MEDS: AMIODARONE 200 MG TAB PO SCH ×2 (07:55→20:14)
[2020-05-13] MEDS: predniSONE 10 MG TAB PO SCH (07:55)
[2020-05-13] MEDS: CHLORHEXIDINE GLUCONATE 15 ML CUP MUCOUS MEM SCH ×2 (07:56→20:14)
[2020-05-13] MEDS: ALBUTEROL HFA INHALER INHALATION SCH ×4 (08:02→21:14)
--- NOTE | 2020-05-13 08:45 | P.PN ---
Subjective Patient is seen in follow-up for acute kidney injury, currently hemodialysis dependent. She is receiving tube feeding. Off vasopressors. Remains oliguric. Diuretic unresponsive. Hemodynamically currently stable. Tolerated dialysis with 2 L ultrafiltration yesterday. Vital signs are stable. General: Tracheostomy noted. HEENT: Neck is without jugular venous distension. LUNGS: Breath sounds decreased. HEART: Rate and Rhythm are regular. ABDOMEN: Soft. EXTREMITITES: 2+ edema. Objective - Vital Signs Vital signs: Vital Signs Temp 98.3 F 05/13/20 04:00 Pulse 80 05/13/20 07:00 Resp 38 H 05/13/20 07:00 BP 106/45 05/12/20 18:24 Pulse Ox 94 L 05/13/20 07:00 Intake & Output 05/12/20 05/13/20 05/13/20 18:59 06:59 18:59 Intake Total 1265 1205 Output Total 4060 40 Balance -2795 1165 Weight 123.1 kg 122.3 kg Intake: IV 559 559 0.9% KVO 520 520 Pressure Bag 39 39 Intake, IV Titration 100 Amount DAPTOmycin 750 mg In 100 Sodium Chloride 0.9% 50 ml @ 100 mls/hr IVPB Q48H [facility] Rx#:[id number] Tube Feeding 546 546 Other 60 100 Output: Urine 60 40 Hemodialysis 1999 Other: Voiding Method Indwelling Catheter Indwelling Catheter ABP, PAP, CO, CI - Last Documented Arterial Blood Pressure 129/58 - Labs CBC & Chem 7: 05/13/20 03:45 05/13/20 03:45 Labs: Abnormal Lab Results - Last 24 Hours (Table) 05/12/20 05/13/20 05/13/20 Range/Units 18:45 03:45 03:45 WBC 3.0 L (3.8-10.6) k/uL RBC 2.64 L (3.80-5.40) m/uL Hgb 8.5 L (11.4-16.0) gm/dL Hct 25.0 L (34.0-46.0) % Plt Count 97 L (150-450) k/uL ABG pO2 (83-108) mmHg ABG Total CO2 (19-24) mmol/L ABG O2 Saturation (94-97) % Sodium 135 L (137-145) mmol/L BUN 42 H (7-17) mg/dL Creatinine 2.36 H (0.52-1.04) mg/dL POC Glucose (mg/dL) 123 H (75-99) mg/dL Calcium 7.8 L (8.4-10.2) mg/dL 05/13/20 Range/Units 05:14 WBC (3.8-10.6) k/uL RBC (3.80-5.40) m/uL Hgb (11.4-16.0) gm/dL Hct (34.0-46.0) % Plt Count (150-450) k/uL ABG pO2 69 L (83-108) mmHg ABG Total CO2 26 H (19-24) mmol/L ABG O2 Saturation 93.4 L (94-97) % Sodium (137-145) mmol/L BUN (7-17) mg/dL Creatinine (0.52-1.04) mg/dL POC Glucose (mg/dL) (75-99) mg/dL Calcium (8.4-10.2) mg/dL Microbiology - Last 24 Hours (Table) 05/06/20 11:00 Blood Culture - Final Blood No Growth after 144 hours 05/06/20 11:00 Blood Culture - Final Blood No Growth after 144 hours Assessment and Plan Plan: Assessment: 1. Acute kidney injury secondary to ATN secondary to hypotension, hemodynamic instability and infection. Started on hemodialysis April 26. Remains oliguric- diuretic unresponsive. 2. Acute hypercapnic/hypoxic respiratory failure status post tracheostomy. 3. Metabolic acidosis secondary to acute kidney injury. Maintained on oral bicarbonate. Improved. 4. COVID-19 infection. PCR from May 07 negative. 5. A. fib with RVR maintained on Lopressor and amiodarone. 6. Hyponatremia secondary to acute kidney injury. Hypervolemic. Improved. 7. Staph bacteremia maintained on antibiotics. Infectious disease following. 8. Hyperphosphatemia secondary to acute kidney injury. Maintained on PhosLo. Plan: Continue with daily hemodialysis with ultrafiltration as tolerated. Maintain tube feeding. Continue to monitor renal function and urine output. Monitor for renal recovery.
--- NOTE | 2020-05-13 09:27 | P.PN ---
Subjective Progress Note Date: 05/13/20 Principal diagnosis: CoVID 19 pneumonia The patient is seen today 05/13/2020 in follow-up in the intensive care unit. Admitted on 04/11/2020 for CoVID pneumonia. She has been slow to progress. She had received Remdesivir, convalescent plasma 2, steroids. She has undergone tr acheostomy and PEG tube placements. She remains on the mechanical ventilator with settings of assist control at a rate of 32, tidal volume 420, FiO2 60%, PEEP of 8. Today's arterial blood gases reveal a P O2 of 69, pCO2 43, pH 7.37. She is receiving hemodialysis for acute renal failure. Yesterday 2 L of fluid were removed. Chest x-ray continues to show evidence of some fluid volume overload, atelectasis. She remains off sedation. She opens her eyes spontaneously. Not following any simple commands. She is on 0.9 normal saline at 40 ML's per hour. She is being nourished with vital HP at 42 ML's per hour which is her goal. Follow-up blood cultures reveal no growth. Sputum culture revealed no growth. White count 3.0. Hemoglobin 8.5. Platelet count 97,000. Sodium 135. Potassium 3.6. Creatinine 2.36. Remains on daptomycin. Anticoagulated with Lovenox. Fentanyl patch in place. Dilaudid as needed. On oral prednisone. Objective - Vital Signs Vital signs: Vital Signs Temp 98.3 F 05/13/20 04:00 Pulse 80 05/13/20 07:00 Resp 38 H 05/13/20 07:00 BP 106/45 05/12/20 18:24 Pulse Ox 94 L 05/13/20 07:00 Intake & Output 05/12/20 05/13/20 05/13/20 18:59 06:59 18:59 Intake Total 1265 1205 Output Total 4060 40 Balance -2795 1165 Weight 123.1 kg 122.3 kg Intake: IV 559 559 0.9% KVO 520 520 Pressure Bag 39 39 Intake, IV Titration 100 Amount DAPTOmycin 750 mg In 100 Sodium Chloride 0.9% 50 ml @ 100 mls/hr IVPB Q48H [facility] Rx#:[id number] Tube Feeding 546 546 Other 60 100 Output: Urine 60 40 Hemodialysis 1999 Other: Voiding Method Indwelling Catheter Indwelling Catheter ABP, PAP, CO, CI - Last Documented Arterial Blood Pressure 129/58 - Exam GENERAL EXAM: 69-year-old female patient, and on mechanical ventilator, status post tracheostomy tube placement. HEAD: Normocephalic. EYES: Sluggish reaction of pupils, equal size. NOSE: Clear with pink turbinates. THROAT: Tracheostomy tube secured in place No erythema or exudates. NECK: No masses, no JVD. CHEST: No chest wall deformity. LUNGS: Equal air entry with crackles in the bilateral posterior bases. CVS: S1 and S2 normal with no audible murmur, regular rhythm. Tachycardic. ABDOMEN: PEG tube exit site clean and dry. No hepatosplenomegaly, normal bowel sounds, no guarding or rigidity. SPINE: No scoliosis or deformity SKIN: No rashes CENTRAL NERVOUS SYSTEM: Minimally responsive, opening eyes spontaneously, tone is normal in all 4 extremities. EXTREMITIES: There is no peripheral edema. No clubbing, no cyanosis. Peripheral pulses are intact. - Labs CBC & Chem 7: 05/13/20 03:45 05/13/20 03:45 Labs: Abnormal Lab Results - Last 24 Hours (Table) 05/12/20 05/13/20 05/13/20 Range/Units 18:45 03:45 03:45 WBC 3.0 L (3.8-10.6) k/uL RBC 2.64 L (3.80-5.40) m/uL Hgb 8.5 L (11.4-16.0) gm/dL Hct 25.0 L (34.0-46.0) % Plt Count 97 L (150-450) k/uL ABG pO2 (83-108) mmHg ABG Total CO2 (19-24) mmol/L ABG O2 Saturation (94-97) % Sodium 135 L (137-145) mmol/L BUN 42 H (7-17) mg/dL Creatinine 2.36 H (0.52-1.04) mg/dL POC Glucose (mg/dL) 123 H (75-99) mg/dL Calcium 7.8 L (8.4-10.2) mg/dL 05/13/20 Range/Units 05:14 WBC (3.8-10.6) k/uL RBC (3.80-5.40) m/uL Hgb (11.4-16.0) gm/dL Hct (34.0-46.0) % Plt Count (150-450) k/uL ABG pO2 69 L (83-108) mmHg ABG Total CO2 26 H (19-24) mmol/L ABG O2 Saturation 93.4 L (94-97) % Sodium (137-145) mmol/L BUN (7-17) mg/dL Creatinine (0.52-1.04) mg/dL POC Glucose (mg/dL) (75-99) mg/dL Calcium (8.4-10.2) mg/dL Microbiology - Last 24 Hours (Table) 05/06/20 11:00 Blood Culture - Final Blood No Growth after 144 hours 05/06/20 11:00 Blood Culture - Final Blood No Growth after 144 hours Assessment and Plan Assessment: 1 Acute hypoxemic respiratory failure secondary to acute COVID 19 pneumonia/pneumonitis, failed previous oxygenation treatments and required intubation and mechanical ventilatory support 04/24/2020 failure to wean and status post tracheostomy and PEG tube placement 05/05/2020. Completed a course of Remdesivir on the 04/16/2020, received 2 units of convalescent plasma patient, remains on steroids and anticoagulation the form of Lovenox 2 Tachycardia, episode of SVT and A. fib RVR, related to fever, and severe hypoxemia, a rate controlled 3 Possible urinary tract infection related to yeast, current empiric antibiotic coverage includes daptomycin and Diflucan was added 04/23/2020 4 Remote history of tobacco use. 5 Obesity 6 Elevated d-dimer, without evidence of pulmonary embolism. Remains on Lovenox 60 mg subcu twice a day 7 Leukocytosis, possibly related to IV steroids, rule out possibility of a bacterial superinfection, recovered 8 Elevated liver enzymes likely related to viral pneumonia 9 Elevated inflammatory markers related to acute COVID 19 pneumonia Plan: The patient was seen and evaluated by Dr. Woodruff Chest x-ray and labs reviewed Continue the current treatment plan The plan is for transfer to long-term acute care facility Family is updated on a daily basis We will continue to follow and make further recommendations based on her clinical status Critical care time 38 minutes. I, the cosigning physician, performed a history & physical examination of the patient. Lungs sounds with bibasilar crackles. Maintaining good O2 saturations in the 90s on 60% FiO2 via the mechanical ventilator. I discussed the assessment and plan of care with my nurse practitioner, Shell Almazan. I attest to the above note as dictated by her.
[2020-05-13 11:36] LABS: Glucose,Whole Blood 66 mg/dL (75-99)
[2020-05-13] MEDS ORDERED: DEXTROSE 50% SYRINGE 50 ML IVP ONE (11:36)
[2020-05-13 11:55] LABS: Glucose,Whole Blood 115 mg/dL (75-99)
[2020-05-13] MEDS: MULTIVITAMINS, THERA 1 EACH TAB PO SCH (12:09)
[2020-05-13] MEDS: THIAMINE 100 MG TAB PO SCH (12:09)
[2020-05-13] MEDS: FOLIC ACID 1 MG TAB PO SCH (12:09)
--- NOTE | 2020-05-13 12:33 | P.PN ---
Subjective Progress Note Date: 05/13/20 Ms. Mccoy is a 69-year-old female with a past medical history of hypertension and thyroid disorder admitted to the hospital for acute hypoxic respiratory failure secondary to COVID 19 pneumonia. Patient has extensive bilateral interstitial pneumonia. She is on a low and pulmonary Dr. Mathews is following the patient. Patient received a convalescent plasma, is also on Remdesivir. On 04/17/2020- This morning patient was evaluated in the ICU. Patient is comfortably sitting in a chair states that her breathing is improving gradually. She denies having any chest pain or palpitations. No cough or hemoptysis. She denies having any swelling or for lower extremities. No abdominal pain nausea vomiting or diarrhea. She denies having any dysuria or hematuria, she has a Bryan's catheter in place. On reviewing her vitals temperature 98.1 heart rate 75 is 5817, blood pressure 1:30 bradycardia. Saturating at 96% on a Aervo -60%. On 04/18/2020 - patient was seen and examined in the ICU. Patient is sitting in a chair by the bedside, states that her breathing has worsened compared to yesterday. Patient is on high flow Airvo, saturating in the low 90s. She denies having any chest pain or palpitations. She complains of cough that is nonproductive. Patient had a chest x-ray done showing stable bilateral air space disease. As the patient was having few episodes of tachycardia, she was started on Lopressor this morning. Patient's inflammatory markers are noted to be high. On reviewing her vitals saturating at 90% on high flow Airvo, heart rate 70s to 80s, respiratory rate 20-25, blood pressure 106-67. In reviewing her labs white count of 29.3, hemoglobin 16.8, platelets 369. D-dimer 6.99, LDH 2969, CRP 63.9. On 04/19/2020 - patient is seen and examined in the ICU. She is currently on BiPAP, as her respiratory status has worsened compared to yesterday. Patient denies having any chest pain or palpitations. No abdominal pain nausea vomiting or diarrhea. No dysuria or hematuria. She is on BiPAP 14/6 and 100% FiO2. On reviewing her vitals temperature is 99.2, respiratory rate is 25, heart rate 70, blood pressure 10 9 x 71. Reviewing the labs white count of 27.3, hemoglobin 17.4, platelets 314. Sodium 133, potassium 4.4, chloride 90, bicarbonate 35, BUN 31, creatinine 0.72. Ferritin 3195, CRP 217 and LDH 2747. 04/20/2020 This is a pleasant 69 years old female with multiple medical problems was admitted for bilateral Covid pneumonia, she is currently on aervo at 90%/60 L of oxygen, saturating 89%. Rest of Vitas looks stable Also she is on BiPAP All the night. She is able to eat and drink, no pressors She is on normal saline at 75 mL/h with adequate urine output Patient is currently ON Medrol 40 mg twice daily, Lovenox 60 mg twice Mary and vitamin C and zinc. She finished her remdisvir and convelecent plasma. 04/21/2020 Patient remains in the ICU bed and respiratory support for her bilateral Covid pneumonia. She still dyspneic especially with exertion and she still needs BiPAP during the day shift. Also she had a fever today of 102.2. Patient is empirically on Zosyn/calcitonin check today showing normal level at 0.07. She has leukocytosis of 29K. I agree with Zosyn and I recommended to continue with that for now. Also patient is on steroids 60 mg every 6 hours. As there is no more significant progress progress in her clinical picture Glucose is 123 and inflammatory markers still elevated 04/22/2020 this is a pleasant 69 yo F who is admitted to the ICU for covid pneumonia, she is still on BiPAP dependant , TNP is started for her nutrition for this reasone. her oxygen saturation is on low 90s% cxr: diffuse interstitial opacities and worsening airspace disease in the left lower lung. consider interstitial edema wbc is sligtly less 26K, she is currently continued on zosyn , and solumedrol 60 mg. and normal saline increased to 150 ml/hr. and lovenox 60 mg BID she finised her Remdisvir and convelescent Plasma. 04/23/2020 Patient looks very tired, she came Off the BiPAP today morning and she was placed back on airvo at 60 L she is back and forth between BiPAP and airvo, however she probably will need BiPAP at night Inflammatory markers and d-dimer increased, ferritin 3100 up to 3700 and d-dimer 3 up to 5 Chest x-ray showing bilateral middle and lower infiltrates with slight improvement Treatments with antibiotics Zosyn, fluconazole was added today. Also she is also on Solu-Medrol 60 mg, normal sling was decreased to 50 mL per hour, Lovenox 60 mg twice daily, TPN and she is on vitamin C and zinc 04/24/2020 Patient today her clinical condition deteriorated, she was hypoxic this morning with oxygen saturation in the 70s percent and she was tachycardic with heart rate 140-150, patient ended up being intubated in the morning and she was in an you onset of A. fib and started on Cardizem drip on 15 mg however her heart rate was still elevated, cardiology team were consulted, blood pressure was on the low normal side. Amiodarone drip was started. Cardiology team and Cardizem drip was shut to 15 mg/h. Also insulin drip for hyperglycemia with sugar more than 300. 04/25/2020 Patient was intubated yesterday for deteriorated respiratory status, ABG showing elevated pCO2 on 496 with acidosis. 7.0 and 7.1. Oxygen saturation is acceptable at 107. She remains on mechanical ventilation managed by pulmonary/critical care team, currently her bruits and draped with before meals at 40 to help with her acidosis. Her creatinine worsened today 0.5 up to 1.3, with potassium elevated as well as 5.5 nephrology team were consulted who ordered insulin/dextrose 50%, sodium bicarb 1 and Lasix 80 mg 1. Storeroom Clerk recommended hemodialysis and no improvement in 24 hours Chest x-ray showing pneumonia and edema which is stable from yesterday. Sugar improved and we could switch her insulin drip to insulin sliding scale A. fib is improved and converted to sinus rhythm with amiodarone which is swi tched to [facility] per Machine Tailer, She Is Already on Anticoagulation 04/26/20 Patient remains in the ICU sedated and intubated with pulmonary/ critical care team following the case closely. Showing trending down leukocytosis to 20 6.1K. Creatinine up to 2.8, Patient is developing anuria with acute kidney injury, nephrology evaluation is appreciated and hemodialysis is initiated. Chest x-ray showing interstitial infiltrate especially in the mid to lower lungs Echocardiogram showed ejection fraction of 55-60%, and atrial fibrillation improved yesterday with amiodarone She remains on Solu-Medrol, Zosyn and fluconazole, normal sinus 50 and vitamin C and zinc Lovenox dose was adjusted to renal function down to 50 mg daily Prognosis remains guarded 04/27/2020 Patient with bilateral: With pneumonia that her purse and eventually got intubated, pulmonary/critical care team and several consultants are following the case, vent management as per pulmonary team. She has leukocytosis of 13.8 K. Creatinine today is 3.37 Patient undergoing hemodialysis for the last 2-3 days for acute kidney injury and formerly [facility] Patient A. fib heart rate becomes uncontrolled today and her amiodarone to switch to a drip. Other medication including Solu-Medrol 60 mg, vitamin C and zinc, Zosyn and fluconazole, she is on normal saline at 50 mL/h and Lovenox dose dropped to 30 mg daily 04/28/2020 Patient remains intubated and sedated in the ICU, followed closely by critical care team. Vital showing tachycardia and tachypnea. WBC is 30 3.5K. Creatinine 3.8, sodium 134. Sugar is controlled. Inflammatory markers are elevated. She is undergoing hemodialysis today Chest x-ray from today showing no change from last one yesterday Medication-hernandez he remains on Solu-Medrol, Zosyn, 30 mg of Lovenox daily which is renal dose and amiodarone drip. Normal saline at 50 mm was discontinued today 04/29/2020 This is a pleasant 69 years old female with bilateral, with pneumonia. Patient remains in the ICU sedated and intubated with pulmonary/critical care team following the case closely. Normal sedation holiday for the patient currently She already finished her treatment with remdesivir and convalescent plasma, and currently she is on vitamin C and zinc. She was on steroids in the form of high dose of Solu-Medrol 60 mg and Zosyn and fluconazole for possible bacteria and fungal infection associated with viral infection. Patient course was complicated by renal failure and new or so she underwent hemodialysis, last HD was yesterday, she is kept on renal dose of Lovenox 30 mg daily. Other compli cation is atrial fibrillation with RVR which is currently controlled with oral amiodarone and low-dose of Cardizem drip. Patient condition remains critical and she kept on mechanical ventilation with close monitoring Procalcitonin is unchanged yesterday at 0.39 compared to one week ago at 0.39. We'll order another test tomorrow 04/30/2020 Patient is seen and evaluated and follow-up continues to remain closely monitored in the ICU. Patient continues to be on a mechanical ventilator intubated and sedated currently off paralytics. Patient being followed by multiple medical consultations including cardiology, pulmonary, nephrology. Patient currently receiving hemodialysis for ultrafiltration and became extremely hypotensive maxing out on pressors and dialysis was aborted. Patient prognosis is extremely guarded and poor at this time. Patient continues to be on IV steroids along with Lovenox vitamin C and D and zinc supplements and will continue. Patient is also maintained on IV antibiotics in the form of Zosyn and vancomycin being added. Patient currently off of IV amiodarone and IV Cardizem and transitioned to oral amiodarone and will continue at this time. Chest x-ray continues to show interstitial pneumonia with bilateral basilar infiltrates and tiny effusions. She also had an abdominal x-ray showing nonspecific abdomen with no diagnostic evidence of obstruction. White blood count today is 27.9, hemoglobin is stable at 12.7, d-dimer is elevated although slowly trending down at 3.04, current sodium is 129, potassium is 5.9, BUN is 103 with a creatinine of 4.97. Attempts at ultrafiltration today his potassium is elevated. Nephrology is following closely. 05/01/20 Patient remains in the ICU intubated on mechanical ventilation with pulmonary/critical care team following closely. Patient today underwent sedation holiday and into hours she started becoming agitated and developed atrial fibrillation's with RVR, she has to be placed back on amiodarone drip and Cardizem drip 10 mg per hour before it was converted to sinus rhythm again Currently she is tachypneic with a breathing rate around 32. She is saturating 91% on FiO2 of 60% Leukocytosis 27.9 yesterday and 24.6K today. D-dimer stable at 3.7 so she kept on the same dose of Lovenox Inflammatory markers including LDH, protein and C-reactive protein went up slightly today. Patient remains anuric and undergoing hemodialysis She remains on Zosyn and fluconazole, she got 2 doses of IV vancomycin yesterday and today. Also she is on zinc and vitamin C, Lovenox 30 mg daily. Diflucan was stopped 05/02/2020 Patient remains intubated and sedated in the ICU was followed closely by pulmonary/critical care team and for vent management. Patient also with A. fib on several occasions needing Cardizem and amiodarone, cardiology following the patient Patient is still undergoing hemodialysis for anuria and acute kidney injury, nephrology team on the case x-ray showed improvement bibasilar infiltrates She is on some Medrol 60 mg daily, antibiotics were stopped 2 days ago. She is also on Lovenox 30 mg daily, vitamin C and zinc 05/03/2020 Patient is seen this morning currently remains in the ICU receiving hemodialysis today. Multiple medical consultations following. Patient remains on mechanical vent and is intubated and sedated and will continue at this time. D-dimer is elevated at 5.50, sodium is 132, potassium is 5.9, BUN is 108, current creatinine is 4.87. White blood count is 31.3 and hemoglobin is 11.3. Patient blood pressure is elevated as well and has been continuing with daily dialysis. Chest x-rays today show interstitial infiltrates or edema in the mid and lower lungs continue with slight improvement on the left. Patient remains on IV antibiotics in the form of Zosyn and will continue at this time. Infectious disease is following as well. 05/04/2020 Patient is seen in follow-up currently remains in the ICU. Surgical consult was placed for trach and PEG tube placement as patient continues to be on tube feedings and continues to be on a mechanical vent. Dimer elevated at 7.38. Nephrology also following as patient has been receiving hemodialysis and current creatinine today is 4.23 with a BUN of 98 and potassium is 5.9. Patient will be made nothing by mouth and tube feedings held for surgery tomorrow. Family continues to wish for full CODE STATUS. Sputum cultures preliminary showing Brittney albicans and urine showing gram-negative bacilli with Brittney albicans. Infectious disease is following. Patient is maintained on IV antibiotics in the form of Zosyn and daptomycin being added. Will await culture finalization. 05/05/2020 Patient continues to be in the ICU currently on a mechanical vent awaiting PEG tube and trach placement today with surgery. Multiple medical consultations following including nephrology. Potassium was 5.5 this morning and will correct prior to surgery patient will be receiving hemodialysis this afternoon. Infla mmatory markers trending down. Patient is maintained on IV antibiotics in the form of daptomycin along with Zosyn and will continue. Tube feedings on hold this morning for surgery. 05/06/2020 Patient is status post tracheostomy and PEG tube placement and will initiate tube feeds this afternoon per surgery. Patient is currently receiving hemodialysis and nephrology following closely. Patient to continue IV daptomycin and Zosyn. Infectious disease is following. Urine cultures finalized showing E. coli and Brittney. Patient's blood pressures have been on the lower end and elevated heart rate and cardiology following closely. Patient currently on levophed and oral amiodarone. Prognosis remains extremely poor and guarded. 05/07/2020 Patient is seen and evaluated this morning currently being closely monitored in the ICU remains on the mechanical vent via tracheostomy along with PEG tube feedings. Patient also continues to be on levophed and once again on amiodarone drip as patient developed atrial fibrillation with RVR yesterday. Multiple medical consultations following. Patient was seen and evaluated by anesthesia as patient continued to have an air leak that was present around the tracheostomy and patient underwent bronchoscope with Dr. Motta today. Patient continues to have generalized edema. Patient is maintained on hemodialysis although unable to tolerate today. Patient has resumed tube feedings and tolerating thus far. 05/08/2020 Patient remains on ventilatory support presently on norepinephrine which is being weaned off patient is on amiodarone drip and improvement at this time. Patient is being weaned off sedatives and narcotics. White blood cell count still remains elevated. Patient is presently on empiric Zosyn and and daptomycin patient is also on high-dose steroids at this time. 05/09/2020 Patient is still on ventilatory support assist-control ventilation FiO2 of 45% PEEP of 8 patient is off Flovent fentanyl and propofol was started on Precedex patient is still requiring hemodialysis. Chest x-ray showing interstitial infiltrates 05/10/2020 Patient continued on mechanical vent and continues to be on norepinephrine and oral amiodarone. Patient is also continued on propofol along with Precedex. Multiple medical consultations following. Patient to receive hemodialysis today. BUN is 77 with a creatinine of 3.59, potassium is 4.4, sodium is 134. 05/11/2020 Patient remains in the ICU on mechanical ventilation currently receiving hemodialysis today. White blood count continues to be elevated at 26.2, hemoglobin is stable at 10.0, sodium is 133, potassium is 4.1, BUN is 73 and creatinine is 3.49. Steroids have been adjusted to oral and receiving via PEG tube. Patient is maintained on tube feedings and will continue. Patient continues to be sedated on propofol. Multiple medical consultations following. Another discussion was had with the family about CODE STATUS and they wish for her to remain full code at this time. Patient prognosis is extremely poor and guarded. 05/12/2020 Patient remains in the ICU ventilator dependent and is off IV sedation and currently maintained on Dilaudid, fentanyl patch, , and Ativan via PEG tube and continues to be sedated. Family at the bedside continues to wish for the patie nt to remain a full code. Social work to discuss with family about treatment options moving forward and the possibility of long-term treatment center if patient is a candidate. Multiple medical consultations following. Patient will be receiving hemodialysis again today. 05/13/2020 Patient continues to be off sedation and on mechanical ventilator support and is currently receiving hemodialysis and blood pressure readings on the lower side. Patient is spontaneously opening eyes although not following any commands. Most recent blood cultures have remained negative and patient is continued on daptomycin or E. coli in the urine. Patient is on oral steroids along with Lovenox and will continue. Issues blood sugar was 66 and given an amp of D50. We'll continue with Accu-Cheks and monitor closely. Review of systems: Unable to obtain as patient's currently intubated and sedated Objective - Vital Signs Vital signs: Vital Signs Temp 98.3 F 05/13/20 04:00 Pulse 80 05/13/20 07:00 Resp 38 H 05/13/20 07:00 BP 106/45 05/12/20 18:24 Pulse Ox 94 L 05/13/20 07:00 Intake & Output 05/12/20 05/13/20 05/13/20 18:59 06:59 18:59 Intake Total 1265 1205 Output Total 4060 40 Balance -2795 1165 Weight 123.1 kg 122.3 kg Intake: IV 559 559 0.9% KVO 520 520 Pressure Bag 39 39 Intake, IV Titration 100 Amount DAPTOmycin 750 mg In 100 Sodium Chloride 0.9% 50 ml @ 100 mls/hr IVPB Q48H [facility] Rx#:[id number] Tube Feeding 546 546 Other 60 100 Output: Urine 60 40 Hemodialysis 1999 Other 1999 Other: Voiding Method Indwelling Catheter Indwelling Catheter ABP, PAP, CO, CI - Last Documented Arterial Blood Pressure 129/58 - Exam GENERAL: 69-year-old female, intubated and mechanically ventilated via tracheostomy HEENT: Pupils are round and equally reacting to light. EOMI. No scleral icterus. No conjunctival pallor. Normocephalic, atraumatic. No pharyngeal erythema. No thyromegaly. Tracheostomy noted CARDIOVASCULAR: S1 and S2 present. No murmurs, rubs, or gallops. PULMONARY: Diffuse Bilateral crackles and rhonchi noted on exam ABDOMEN: Soft, nontender, nondistended, normoactive bowel sounds. No palpable organomegaly. PEG tube noted MUSCULOSKELETAL: No joint swelling or deformity. EXTREMITIES: No cyanosis, clubbing, or pedal edema. Bilateral upper and lower extremity edema noted with 2+ pitting in the hands and lower extremities NEUROLOGICAL: Unable to assess, currently off sedation although continues to be unresponsive, spontaneous eye opening SKIN: No rashes. no petechiae. Note: Because of [place] [address] isolation, some of the history and physical exam findings are indirect and obtained from nursing staff, and other physician examinations to avoid unnecessary contact with the patient. - Labs CBC & Chem 7: 05/13/20 03:45 05/13/20 03:45 Labs: Abnormal Lab Results - Last 24 Hours (Table) 05/12/20 05/13/20 05/13/20 Range/Units 18:45 03:45 03:45 WBC 3.0 L (3.8-10.6) k/uL RBC 2.64 L (3.80-5.40) m/uL Hgb 8.5 L (11.4-16.0) gm/dL Hct 25.0 L (34.0-46.0) % Plt Count 97 L (150-450) k/uL ABG pO2 (83-108) mmHg ABG Total CO2 (19-24) mmol/L ABG O2 Saturation (94-97) % Sodium 135 L (137-145) mmol/L BUN 42 H (7-17) mg/dL Creatinine 2.36 H (0.52-1.04) mg/dL POC Glucose (mg/dL) 123 H (75-99) mg/dL Calcium 7.8 L (8.4-10.2) mg/dL 05/13/20 Range/Units 05:14 WBC (3.8-10.6) k/uL RBC (3.80-5.40) m/uL Hgb (11.4-16.0) gm/dL Hct (34.0-46.0) % Plt Count (150-450) k/uL ABG pO2 69 L (83-108) mmHg ABG Total CO2 26 H (19-24) mmol/L ABG O2 Saturation 93.4 L (94-97) % Sodium (137-145) mmol/L BUN (7-17) mg/dL Creatinine (0.52-1.04) mg/dL POC Glucose (mg/dL) (75-99) mg/dL Calcium (8.4-10.2) mg/dL Microbiology - Last 24 Hours (Table) 05/06/20 11:00 Blood Culture - Final Blood No Growth after 144 hours 05/06/20 11:00 Blood Culture - Final Blood No Growth after 144 hours Assessment and Plan Assessment: COVID 19 pneumonia Status post tracheostomy and PEG tube placement sepsis, present on admission, positive blood cultures most likely contamination, also has been treated for septic shock, resolved, infectious disease following, patient is on daptomycin for E. coli in the urine Acute hypoxic respiratory failure-status post intubation and mechanical ventilation New onset A. fib with RVR, placed back on amiodarone oral, cardiology following Acute kidney injury with anuria status post hemodialysis, nephrology following Increased d-dimer without evidence of PE Hyponatremia, improved Leukocytosis, remains on daptomycin , infectious disease following Elevated inflammatory markers Hypertension, currently hypotensive receiving hemodialysis Hypothyroidism History of bilateral posterior tibial tendon repair Obesity with BMI of 40.2 DVT prophylaxis: Subcutaneous Lovenox GI prophylaxis: Pepcid Full code Plan: Continue with current medications. Patient receiving hemodialysis today and is hypotensive. Infectious disease along with pulmonary and cardiology is following. Patient continues to be on mechanical vent and is off of sedation and continues to be unresponsive. Family wishes for the patient to remain full code. Social work to discuss treatment options and the possibility of LTAC if patient is a candidate. Family refusing any transfers and this was discussed with social work along with nursing staff. To continue assessing for possibil ity of transfer to select specialties. Prognosis remains extremely poor and guarded.
--- NOTE | 2020-05-13 13:06 | P.PN ---
Subjective Progress Note Date: 05/13/20 CHIEF COMPLAINT: Shortness of breath HISTORY OF PRESENT ILLNESS: Patient hospitalized for Covid 19 pneumonia currently in the ICU and intubated. Patient is status post trach and PEG tube placement with Dr. Herman. Patient is tolerating her tube feedings. Afebrile WBC 3.0 PHYSICAL EXAM: VITAL SIGNS: Reviewed. GENERAL: Well-developed in no acute distress. HEENT: No sclera icterus. Extraocular movements grossly intact. Moist buccal mucosa. Head is atraumatic, normocephalic. Trach site clean and dry ABDOMEN: Soft. Nondistended. Nontender. PEG tube site clean dry and intact NEUROLOGIC: Intubated and sedated ASSESSMENT: 1. Severe protein calorie malnutrition. Patient is status post PEG tube placement 2. Acute hypoxic respiratory failure secondary to Covid 19 pneumonitis. Patient is status post tracheostomy PLAN: -Continue supportive care -Continue tube feedings Physician Contour Path Tape Mill Operator note has been reviewed by physician. Signing provider agrees with the documented findings, assessment, and plan of care. Objective - Vital Signs Vital signs: Vital Signs Temp 98.1 F 05/13/20 12:09 Pulse 78 05/13/20 12:09 Resp 43 H 05/13/20 12:09 BP 94/41 05/13/20 12:09 Pulse Ox 97 05/13/20 11:00 Intake & Output 05/12/20 05/13/20 05/13/20 18:59 06:59 18:59 Intake Total 1265 1205 357 Output Total 4060 40 300 Balance -2795 1165 57 Weight 123.1 kg 122.3 kg 122.3 kg Intake: IV 559 559 129 0.9% KVO 520 520 120 Pressure Bag 39 39 9 Intake, IV Titration 100 Amount DAPTOmycin 750 mg In 100 Sodium Chloride 0.9% 50 ml @ 100 mls/hr IVPB Q48H [facility] Rx#:[id number] Oral 60 Tube Feeding 546 546 168 Other 60 100 Output: Urine 60 40 Hemodialysis 1999 300 Other 1999 Other: Voiding Method Indwelling Catheter Indwelling Catheter Indwelling Catheter ABP, PAP, CO, CI - Last Documented Arterial Blood Pressure 86/41 - Labs CBC & Chem 7: 05/13/20 03:45 05/13/20 03:45 Labs: Abnormal Lab Results - Last 24 Hours (Table) 05/12/20 05/13/20 05/13/20 Range/Units 18:45 03:45 03:45 WBC 3.0 L (3.8-10.6) k/uL RBC 2.64 L (3.80-5.40) m/uL Hgb 8.5 L (11.4-16.0) gm/dL Hct 25.0 L (34.0-46.0) % Plt Count 97 L (150-450) k/uL ABG pO2 (83-108) mmHg ABG Total CO2 (19-24) mmol/L ABG O2 Saturation (94-97) % Sodium 135 L (137-145) mmol/L BUN 42 H (7-17) mg/dL Creatinine 2.36 H (0.52-1.04) mg/dL POC Glucose (mg/dL) 123 H (75-99) mg/dL Calcium 7.8 L (8.4-10.2) mg/dL 05/13/20 05/13/20 05/13/20 Range/Units 05:14 11:35 11:54 WBC (3.8-10.6) k/uL RBC (3.80-5.40) m/uL Hgb (11.4-16.0) gm/dL Hct (34.0-46.0) % Plt Count (150-450) k/uL ABG pO2 69 L (83-108) mmHg ABG Total CO2 26 H (19-24) mmol/L ABG O2 Saturation 93.4 L (94-97) % Sodium (137-145) mmol/L BUN (7-17) mg/dL Creatinine (0.52-1.04) mg/dL POC Glucose (mg/dL) 66 L 115 H (75-99) mg/dL Calcium (8.4-10.2) mg/dL Microbiology - Last 24 Hours (Table) 05/06/20 11:00 Blood Culture - Final Blood No Growth after 144 hours 05/06/20 11:00 Blood Culture - Final Blood No Growth after 144 hours
--- NOTE | 2020-05-13 13:31 | PN ---
PROGRESS NOTE DATE OF SERVICE: 05/13/2020 REASON FOR FOLLOWUP: Bacteremia, pneumonia. INTERVAL HISTORY: The patient is currently afebrile. The patient is hemodynamically stable. The patient's FiO2 is currently at 60%. No significant purulent secretion through ET or any worsening diarrhea has been reported by the nursing staff. PHYSICAL EXAMINATION: Blood pressure 94/41 with pulse of 78, temperature 98.1. She is 97% on 60% FiO2. General description is an elderly female lying in bed in no distress. RESPIRATORY SYSTEM: Unlabored breathing with decreased breath sounds at the bases. No wheeze. HEART: S1, S2. Regular rate and rhythm. ABDOMEN: Soft, no tenderness. LABS: Hemoglobin 8.5, white count 3, BUN of 42, creatinine 2.36. DIAGNOSTIC IMPRESSION AND PLAN: Patient with leukocytosis, multifactorial, now did show evidence of a leukopenia, possible lab error will be repeated tomorrow. Currently covered with daptomycin. Follow up blood culture negative and monitor clinical course closely. MMODL / IJN: [id number] /
[2020-05-13] MEDS ORDERED: NOREPINEPHRINE 32 MG in SODIUM CHLORIDE 0.9% 218 ML IV SCH (15:15)
[2020-05-13 17:30] LABS: Glucose,Whole Blood 92 mg/dL (75-99)
[2020-05-13 20:27] LABS: Glucose,Whole Blood 92 mg/dL (75-99)
[2020-05-14 01:11] LABS: Glucose,Whole Blood 89 mg/dL (75-99)
[2020-05-14] MEDS: INSULIN ASPART (NovoLOG) 100 UNIT/ML VIAL SQ SCH ×2 (01:11→05:23)
[2020-05-14] MEDS: HYDROmorphone 1 MG/ML 1 ML SYRINGE IVP PRN ×3 (01:45→12:19)
[2020-05-14 01:50] VITALS: BP 129/47
[2020-05-14 05:21] LABS: Glucose,Whole Blood 94 mg/dL (75-99)
[2020-05-14 05:36] LABS: HGB 9.3 gm/dL (11.4-16.0); MCH 31.7 pg (25.0-35.0); MCHC 33.3 g/dL (31.0-37.0); MCV 95.3 fL (80.0-100.0); Mean Platelet Volume 10.5; RBC 2.94 m/uL (3.80-5.40); RDW 14.6 % (11.5-15.5); WBC 2.5 k/uL (3.8-10.6)
[2020-05-14 05:40] LABS: ABG Base Excess -1.4 mmol/L; ABG HCO3 24 mmol/L (21-25); ABG Oxygen Saturation 91.3 % (94-97); ABG PCO2 45 mmHg (35-45); ABG PH 7.34 (7.35-7.45); ABG PO2 64 mmHg (83-108); ABG TCO2 26 mmol/L (19-24); Allen Test Performed? Yes
[2020-05-14 05:40] LABS: Platelet Count 88 k/uL (150-450)
[2020-05-14 06:02] LABS: Calcium 7.2 mg/dL (8.4-10.2); Potassium 4.7 mmol/L (3.5-5.1)
[2020-05-14] MEDS: CALCIUM ACETATE 667 MG TAB PO SCH ×2 (06:21→12:22)
[2020-05-14] MEDS: LEVOTHYROXINE 50 MCG TAB PO SCH (06:22)
[2020-05-14] MEDS: METOPROLOL TARTRATE 25 MG TAB PO SCH (06:22)
[2020-05-14] MEDS: ALBUTEROL HFA INHALER INHALATION SCH ×2 (07:32→11:09)
--- NOTE | 2020-05-14 07:32 | XR ---
EXAMINATION TYPE: XR chest 1V portable DATE OF EXAM: 05/14/2020 HISTORY: Shortness of breath. COMPARISON: 05/13/2020 TECHNIQUE: Single view of the chest is submitted. FINDINGS: Demonstrated are scattered senescent parenchymal change. Coarse infiltrates persist bilaterally. Tracheostomy tube is in place. The heart is stable. Hilar and mediastinal structures are within normal limits. Degenerative changes are seen of the dorsal spine. IMPRESSION: 1. Coarse infiltrates persist bilaterally.
[2020-05-14] MEDS: MULTIVITAMINS, THERA 1 EACH TAB PO SCH (09:34)
[2020-05-14] MEDS: CHLORHEXIDINE GLUCONATE 15 ML CUP MUCOUS MEM SCH (09:34)
[2020-05-14] MEDS: QUEtiapine 50 MG TAB PO SCH (09:34)
[2020-05-14] MEDS: ENOXAPARIN 30 MG/0.3 ML SYRINGE SQ SCH (09:35)
[2020-05-14] MEDS: ZINC SULFATE 220 MG CAP PO SCH (09:36)
[2020-05-14] MEDS: CHOLECALCIFEROL 25 MCG (1000 IU) TABLET PO SCH (09:36)
[2020-05-14] MEDS: FOLIC ACID 1 MG TAB PO SCH (09:36)
[2020-05-14] MEDS: predniSONE 10 MG TAB PO SCH (09:36)
[2020-05-14] MEDS: SODIUM BICARBONATE TAB 650 MG TAB PO SCH (09:36)
[2020-05-14] MEDS: ASCORBIC ACID 500 MG TAB PO SCH (09:36)
[2020-05-14] MEDS: THIAMINE 100 MG TAB PO SCH (09:37)
[2020-05-14] MEDS: ALPRAZolam 0.5 MG TAB PO SCH (09:37)
[2020-05-14] MEDS: AMIODARONE 200 MG TAB PO SCH (09:37)
[2020-05-14] MEDS: FAMOTIDINE 20 MG TAB OG-TUBE SCH (09:37)
--- NOTE | 2020-05-14 10:50 | P.PN ---
Subjective Progress Note Date: 05/14/20 Principal diagnosis: CoVID 19 pneumonia The patient is seen today 05/13/2020 in follow-up in the intensive care unit. Admitted on 04/11/2020 for CoVID pneumonia. She has been slow to progress. She had received Remdesivir, convalescent plasma 2, steroids. She has undergone tr acheostomy and PEG tube placements. She remains on the mechanical ventilator with settings of assist control at a rate of 32, tidal volume 420, FiO2 60%, PEEP of 8. Today's arterial blood gases reveal a P O2 of 69, pCO2 43, pH 7.37. She is receiving hemodialysis for acute renal failure. Yesterday 2 L of fluid were removed. Chest x-ray continues to show evidence of some fluid volume overload, atelectasis. She remains off sedation. She opens her eyes spontaneously. Not following any simple commands. She is on 0.9 normal saline at 40 ML's per hour. She is being nourished with vital HP at 42 ML's per hour which is her goal. Follow-up blood cultures reveal no growth. Sputum culture revealed no growth. White count 3.0. Hemoglobin 8.5. Platelet count 97,000. Sodium 135. Potassium 3.6. Creatinine 2.36. Remains on daptomycin. Anticoagulated with Lovenox. Fentanyl patch in place. Dilaudid as needed. On oral prednisone. The patient is seen today 05/14/2020 in follow-up in the intensive care unit. She remains on mechanical ventilator. Current settings assist-control mode. Respiratory rate of 32. Tidal volume 420. FiO2 60% and a PEEP of 8. Morning blood gases revealed a PaO2 of 64, pCO2 45, pH 7.34. She remains off sedation. She is currently on norepinephrine at 25 mcg/m. 0.9 normal saline at 40 ML's per hour. She is being nourished with Nepro at 40 ML's per hour which is her goal. She did receive hemodialysis yesterday with approximately 300 mL removed. Chest x-ray continues to demonstrate scattered coarse infiltrates bilaterally. Follow-up blood cultures reveal no growth to date. White count 2.5. Hemoglobin 9.3. Platelet count 88,000. Sodium 136. Potassium 4.7. Creatinine 2.36. She is opening her eyes spontaneously. Otherwise not following any simple commands. Will plan for computed tomography scan of the brain and EEG today. Objective - Vital Signs Vital signs: Vital Signs Temp 98 F 05/14/20 08:00 Pulse 84 05/14/20 09:00 Resp 43 H 05/14/20 09:00 BP 129/47 05/14/20 02:00 Pulse Ox 95 05/14/20 09:00 Intake & Output 05/13/20 05/14/20 05/14/20 18:59 06:59 18:59 Intake Total 8210.725 0772.005 289 Output Total 630 0 0 Balance 632.567 3462.005 289 Weight 122.3 kg 122.8 kg Intake: IV 473 516 129 0.9% KVO 440 480 120 Pressure Bag 33 36 9 Intake, IV Titration 17.485 57.005 Amount Norepinephrine 32 mg In 17.485 57.005 Sodium Chloride 0.9% 218 ml @ 0.05 MCG/KG/MIN 2. 866 mls/hr IV [facility]H [facility] Rx#:[id number] Oral 60 Tube Feeding 546 490 160 Other 90 Output: Urine 30 0 0 Hemodialysis 300 Other 300 Other: Voiding Method Indwelling Catheter Indwelling Catheter Indwelling Catheter ABP, PAP, CO, CI - Last Documented Arterial Blood Pressure 120/60 - Exam GENERAL EXAM: 69-year-old female patient, on mechanical ventilator, status post tracheostomy tube placement. HEAD: Normocephalic. EYES: Sluggish reaction of pupils, equal size. NOSE: Clear with pink turbinates. THROAT: Tracheostomy tube secured in place No erythema or exudates. NECK: No masses, no JVD. CHEST: No chest wall deformity. LUNGS: Equal air entry with crackles in the bilateral posterior bases. CVS: S1 and S2 normal with no audible murmur, regular rhythm. Tachycardic. ABDOMEN: PEG tube exit site clean and dry. No hepatosplenomegaly, normal bowel sounds, no guarding or rigidity. SPINE: No scoliosis or deformity SKIN: No rashes CENTRAL NERVOUS SYSTEM: Minimally responsive, opening eyes spontaneously, tone is normal in all 4 extremities. EXTREMITIES: There is no peripheral edema. No clubbing, no cyanosis. Peripheral pulses are intact. - Labs CBC & Chem 7: 05/14/20 05:20 05/14/20 05:20 Labs: Abnormal Lab Results - Last 24 Hours (Table) 05/13/20 05/13/2005/14/21 Range/Units 11:35 11:54 05:20 WBC 2.5 L (3.8-10.6) k/uL RBC 2.94 L (3.80-5.40) m/uL Hgb 9.3 L (11.4-16.0) gm/dL Hct 28.0 L (34.0-46.0) % Plt Count 88 L (150-450) k/uL ABG pH (7.35-7.45) ABG pO2 (83-108) mmHg ABG Total CO2 (19-24) mmol/L ABG O2 Saturation (94-97) % Sodium (137-145) mmol/L BUN (7-17) mg/dL Creatinine (0.52-1.04) mg/dL POC Glucose (mg/dL) 66 L 115 H (75-99) mg/dL Calcium (8.4-10.2) mg/dL 05/14/20 05/14/20 Range/Units 05:20 05:35 WBC (3.8-10.6) k/uL RBC (3.80-5.40) m/uL Hgb (11.4-16.0) gm/dL Hct (34.0-46.0) % Plt Count (150-450) k/uL ABG pH 7.34 L (7.35-7.45) ABG pO2 64 L (83-108) mmHg ABG Total CO2 26 H (19-24) mmol/L ABG O2 Saturation 91.3 L (94-97) % Sodium 136 L (137-145) mmol/L BUN 40 H (7-17) mg/dL Creatinine 2.36 H (0.52-1.04) mg/dL POC Glucose (mg/dL) (75-99) mg/dL Calcium 7.2 L (8.4-10.2) mg/dL Assessment and Plan Assessment: 1 Acute hypoxemic respiratory failure secondary to acute COVID 19 pneumonia/pn eumonitis, failed previous oxygenation treatments and required intubation and mechanical ventilatory support 04/24/2020 failure to wean and status post tracheostomy and PEG tube placement 05/05/2020. Completed a course of Remdesivir on the 04/16/2020, received 2 units of convalescent plasma patient, remains on steroids and anticoagulation the form of Lovenox 2 Tachycardia, episode of SVT and A. fib RVR, related to fever, and severe hypoxemia, a rate controlled 3 Possible urinary tract infection related to yeast, current empiric antibiotic coverage includes daptomycin and Diflucan was added 04/23/2020 4 Hypotension requiring norepinephrine currently at 25 mcg/m. 5 Obesity 6 Elevated d-dimer, without evidence of pulmonary embolism. Remains on Lovenox 30 mg subcu twice a day 7 Leukocytosis, possibly related to IV steroids, recovered 8 Elevated liver enzymes likely related to viral pneumonia 9 Elevated inflammatory markers related to acute COVID 19 pneumonia Plan: The patient was seen and evaluated by Dr. Woodruff Chest x-ray and ABGs and labs reviewed Continue the current treatment plan Titrate down the norepinephrine as tolerated We'll obtain a computed tomography scan of the brain and EEG We will continue to follow and make further recommendations based on her clinical status Critical care time 36 minutes. I, the cosigning physician, performed a history & physical examination of the patient. Lungs sounds with bibasilar crackles. Maintaining good O2 saturations in the 90s on 60% FiO2 via the mechanical ventilator. I discussed the assessment and plan of care with my nurse practitioner, Shell Almazan. I attest to the above note as dictated by her.
--- NOTE | 2020-05-14 11:05 | CDI ---
Documentation Clarification Form Date: 05/14/2020 10:34:25 AM From: Vidhya Newman RN, CCDS Admit Date: 04/11/2020 04:50:00 PM Patient Name: Olga Mccoy Visit Number: [id number] ATTENTION: The Clinical Documentation Specialists (CDI) and [facility] Coding Staff appreciate your assistance in clarifying documentation. Please respond to the clarification below the line at the bottom and electronically sign. The CDI & [facility] Coding staff will review the response and follow-up if needed. Please note: Queries are made part of the Legal Health Record. If you have any questions, please contact the author of this message via ITS. Dr. Bj Motta Fluid overload is documented in the 05/06-05/09 pulmonary progress notes in a patient with ESRD receiving daily Hemodialysis with an EF of 55-60%. History/Risk Factors: Acute Covid 19 pneumonia with acute hypoxic respiratory failure, polycythemia, Obesity, HTN, Hypothyroid, LATOSHA with ATN requiring emergent HD this admission Clinical Indicators: 05/06/20 1600 VS/Pulse OX: Temp 97.8, HR 142, RR 32, B/P 95/57, Spo2 98% on 100% FIO2 Mechanical vent BNP: not checked this admission 04/26 Echocardiogram Results: EF 55-60%, borderline concentric LVH 05/09 Chest X Ray: Correlate for interstitial edema, pneumonia." Treatment: 04/24-05/01 Cardizem Gtt at 5-10 mg/hr. 04/18-04/21 & 05/06-current Lopressor 25 mg PO BID 04/21-04/25 Lopressor 5 mg IVP Q 6 04/30-Current Levophed Gtt titrate for B/P 04/24 1L 0.9% NS IVF bolus 04/25 1.5L 0.9% NS IVF bolus / 2L 0.9% NS IVF bolus Multiple OT IVP Doses of Lasix- 04/13 x3, 04/16, 04/18, 04/23, 04/25, 04/29, 05/10 In your professional opinion, can you please further clarify the fluid overload in the setting of LATOSHA with ATN on HD? Acuity and type of further specified diagnosis if known? Diastolic Heart Failure: Acute Chronic Acute on Chronic Systolic & Diastolic Heart Failure: Acute Chronic Acute on Chronic Heart Failure Unable to Determine Other, please specify (Last Revision: July 2017) MTDD
[2020-05-14 12:18] VITALS: TEMP 97.9
[2020-05-14] MEDS: DAPTOmycin 750 MG in SODIUM CHLORIDE 0.9% 50 ML IVPB SCH (12:19)
[2020-05-14 12:46] VITALS: BMI 41.1
--- NOTE | 2020-05-14 13:12 | P.PN ---
Subjective Progress Note Date: 05/14/20 CHIEF COMPLAINT: Shortness of breath HISTORY OF PRESENT ILLNESS: Patient hospitalized for Covid 19 pneumonia currently in the ICU and intubated. Patient is status post trach and PEG tube placement with Dr. Herman. Patient is tolerating her tube feedings. Patient is off of sedation. She has EEG and computed tomography scan of the brain ordered for today due to her unresponsiveness. Afebrile WBC 2.5 PHYSICAL EXAM: VITAL SIGNS: Reviewed. GENERAL: Well-developed in no acute distress. HEENT: No sclera icterus. Extraocular movements grossly intact. Moist buccal mucosa. Head is atraumatic, normocephalic. Trach site clean and dry ABDOMEN: Soft. Nondistended. Nontender. PEG tube site clean dry and intact NEUROLOGIC: Intubated and sedated ASSESSMENT: 1. Severe protein calorie malnutrition. Patient is status post PEG tube placement 2. Acute hypoxic respiratory failure secondary to Covid 19 pneumonitis. Patient is status post tracheostomy PLAN: -Continue supportive care -Continue tube feedings Physician Sas Programmer Analyst note has been reviewed by physician. Signing provider agrees with the documented findings, assessment, and plan of care. Objective - Vital Signs Vital signs: Vital Signs Temp 97.9 F 05/14/20 12:00 Pulse 85 05/14/20 12:00 Resp 22 05/14/20 12:00 BP 129/47 05/14/20 02:00 Pulse Ox 93 L 05/14/20 12:00 Intake & Output 05/13/20 05/14/20 05/14/20 18:59 06:59 18:59 Intake Total 5540.418 0236.005 375 Output Total 630 0 0 Balance 253.592 8999.005 375 Weight 122.3 kg 122.8 kg 122.8 kg Intake: IV 473 516 215 0.9% KVO 440 480 200 Pressure Bag 33 36 15 Intake, IV Titration 17.485 57.005 Amount Norepinephrine 32 mg In 57.005 Sodium Chloride 0.9% 218 ml @ 0.05 MCG/KG/MIN 2. 866 mls/hr IV .Q24H [facility] Rx#:[id number] Oral 60 Tube Feeding 546 490 160 Other 90 Output: Urine 30 0 0 Hemodialysis 300 Other 300 Other: Voiding Method Indwelling Catheter Indwelling Catheter Indwelling Catheter ABP, PAP, CO, CI - Last Documented Arterial Blood Pressure 90/49 - Labs CBC & Chem 7: 05/14/20 05:20 05/14/20 05:20 Labs: Abnormal Lab Results - Last 24 Hours (Table) 05/14/20 05/14/20 05/14/20 Range/Units 05:20 05:20 05:35 WBC 2.5 L (3.8-10.6) k/uL RBC 2.94 L (3.80-5.40) m/uL Hgb 9.3 L (11.4-16.0) gm/dL Hct 28.0 L (34.0-46.0) % Plt Count 88 L (150-450) k/uL ABG pH 7.34 L (7.35-7.45) ABG pO2 64 L (83-108) mmHg ABG Total CO2 26 H (19-24) mmol/L ABG O2 Saturation 91.3 L (94-97) % Sodium 136 L (137-145) mmol/L BUN 40 H (7-17) mg/dL Creatinine 2.36 H (0.52-1.04) mg/dL Calcium 7.2 L (8.4-10.2) mg/dL
[2020-05-14] MEDS ORDERED: MORPHINE SULFATE 4 MG/ML SYRINGE IV PRN (14:21)
[2020-05-14] MEDS ORDERED: ATROPINE OPHTH SOLN 1% 5ML BTL SUBLINGUAL PRN (14:21)
[2020-05-14] MEDS ORDERED: MORPHINE SULFATE 2 MG/ML SYRINGE IV PRN (14:21)
[2020-05-14] MEDS ORDERED: MORPHINE SULFATE (100 MG/2 ML) 100 MG in SODIUM CHLORIDE 0.9% 100 ML IV SCH (14:30)
[2020-05-14] MEDS ORDERED: SCOPOLAMINE 1.5MG/72HR PATCH TRANSDERM SCH (14:30)
[2020-05-14] MEDS ORDERED: LORazepam 2 MG/ML INJ IV PRN (15:22)
[2020-05-14 15:27] VITALS: PULSE 89; RESP 45
--- NOTE | 2020-05-14 15:36 | P.PN ---
Subjective Progress Note Date: 05/14/20 Principal diagnosis: CoVID 19 pneumonia 05/14/2020 in follow-up in the intensive care unit. She remains on mechanical ventilator. Current settings assist-control mode. Respiratory rate of 32. Tidal volume 420. FiO2 60% and a PEEP of 8. Morning blood gases revealed a PaO2 of 64, pCO2 45, pH 7.34. She remains off sedation. She is currently on norepinephrine at 25 mcg/m. 0.9 normal saline at 40 ML's per hour. She is being nourished with Nepro at 40 ML's per hour which is her goal. She did receive hemodialysis yesterday with approximately 300 mL removed. Chest x-ray continues to demonstrate scattered coarse infiltrates bilaterally. Follow-up blood cultures reveal no growth to date. White count 2.5. Hemoglobin 9.3. Platelet count 88,000. Sodium 136. Potassium 4.7. Creatinine 2.36. She is opening her eyes spontaneously; plan is for computed tomography scan of the brain and EEG today. Objective - Vital Signs Vital signs: Vital Signs Temp 98 F 05/14/20 08:00 Pulse 84 05/14/20 09:00 Resp 43 H 05/14/20 09:00 BP 129/47 05/14/20 02:00 Pulse Ox 95 05/14/20 09:00 Intake & Output 05/13/20 05/14/20 05/14/20 18:59 06:59 18:59 Intake Total 2391.257 5809.005 289 Output Total 630 0 0 Balance 333.986 2982.005 289 Weight 122.3 kg 122.8 kg Intake: IV 473 516 129 0.9% KVO 440 480 120 Pressure Bag 33 36 9 Intake, IV Titration 17.485 57.005 Amount Norepinephrine 32 mg In 17.485 57.005 Sodium Chloride 0.9% 218 ml @ 0.05 MCG/KG/MIN 2. 866 mls/hr IV .Q24H [facility] Rx#:[id number] Oral 60 Tube Feeding 546 490 160 Other 90 Output: Urine 30 0 0 Hemodialysis 300 Other 300 Other: Voiding Method Indwelling Catheter Indwelling Catheter Indwelling Catheter ABP, PAP, CO, CI - Last Documented Arterial Blood Pressure 120/60 - Exam GENERAL EXAM: 69-year-old female patient, on mechanical ventilator, status post tracheostomy tube placement. HEAD: Normocephalic. EYES: Sluggish reaction of pupils, equal size. NOSE: Clear with pink turbinates. THROAT: Tracheostomy tube secured in place NECK: No masses, no JVD. LUNGS: Equal air entry with crackles in the bilateral posterior bases. CVS: S1 and S2 normal with no audible murmur, regular rhythm. Tachycardic. ABDOMEN: PEG tube exit site clean and dry. No hepatosplenomegaly, normal bowel sounds, no guarding or rigidity. CENTRAL NERVOUS SYSTEM: Minimally responsive, opening eyes spontaneously, tone is normal in all 4 extremities. EXTREMITIES: There is no peripheral edema. No clubbing, no cyanosis. Peripheral pulses are intact. - Labs CBC & Chem 7: 05/14/20 05:20 05/14/20 05:20 Labs: Abnormal Lab Results - Last 24 Hours (Table) 05/13/20 05/13/20 05/14/20 Range/Units 11:35 11:54 05:20 WBC 2.5 L (3.8-10.6) k/uL RBC 2.94 L (3.80-5.40) m/uL Hgb 9.3 L (11.4-16.0) gm/dL Hct 28.0 L (34.0-46.0) % Plt Count 88 L (150-450) k/uL ABG pH (7.35-7.45) ABG pO2 (83-108) mmHg ABG Total CO2 (19-24) mmol/L ABG O2 Saturation (94-97) % Sodium (137-145) mmol/L BUN (7-17) mg/dL Creatinine (0.52-1.04) mg/dL POC Glucose (mg/dL) 66 L 115 H (75-99) mg/dL Calcium (8.4-10.2) mg/dL 05/14/20 05/14/20 Range/Units 05:20 05:35 WBC (3.8-10.6) k/uL RBC (3.80-5.40) m/uL Hgb (11.4-16.0) gm/dL Hct (34.0-46.0) % Plt Count (150-450) k/uL ABG pH 7.34 L (7.35-7.45) ABG pO2 64 L (83-108) mmHg ABG Total CO2 26 H (19-24) mmol/L ABG O2 Saturation 91.3 L (94-97) % Sodium 136 L (137-145) mmol/L BUN 40 H (7-17) mg/dL Creatinine 2.36 H (0.52-1.04) mg/dL POC Glucose (mg/dL) (75-99) mg/dL Calcium 7.2 L (8.4-10.2) mg/dL Assessment and Plan Assessment: COVID 19 pneumonia Status post tracheostomy and PEG tube placement sepsis, present on admission, positive blood cultures most likely contamin ation, also has been treated for septic shock, resolved, infectious disease following, patient is on daptomycin for E. coli in the urine Acute hypoxic respiratory failure-status post intubation and mechanical ventilation New onset A. fib with RVR, placed back on amiodarone oral, cardiology following Acute kidney injury with anuria status post hemodialysis, nephrology following Increased d-dimer without evidence of PE Hyponatremia, improved Leukocytosis, remains on daptomycin , infectious disease following Elevated inflammatory markers Hypertension, currently hypotensive receiving hemodialysis Hypothyroidism History of bilateral posterior tibial tendon repair Obesity with BMI of 40.2 DVT prophylaxis: Subcutaneous Lovenox GI prophylaxis: Pepcid Full code Plan: Continue with current medications. Patient receiving hemodialysis today and is hypotensive. Infectious disease along with pulmonary and cardiology is following. Patient continues to be on mechanical vent and is off of sedation and continues to be unresponsive. Family wishes for the patient to remain full code. Social work to discuss treatment options and the possibility of LTAC if patient is a candidate. Family refusing any transfers and this was discussed with social work along with nursing staff. To continue assessing for possibility of transfer to select specialties. Prognosis remains extremely poor and guarded.
--- NOTE | 2020-05-18 09:04 | CDI ---
Documentation Clarification Form Date: 05/18/2020 08:52:59 AM From: Vidhya Newman RN, CCDS Admit Date: 04/11/2020 04:50:00 PM Patient Name: Olga Mccoy Visit Number: [id number] Discharge Date: 05/14/2020 06:00:00 PM ATTENTION: The Clinical Documentation Specialists (CDI) and [facility] Coding Staff appreciate your assistance in clarifying documentation. Please respond to the clarification below the line at the bottom and electronically sign. The CDI & [facility] Coding staff will review the response and follow-up if needed. Please note: Queries are made part of the Legal Health Record. If you have any questions, please contact the author of this message via ITS. Dr. Ceballos An unstageable pressure injury on nose is documented in the 05/01 1599 nursing assessment and requires clarification. History/Risk Factors: Patient was maintained on Bipap until 04/24, Covid positive status with acute hypoxic respiratory failure, nicotine dependence Clinical Indicators: Location: nose Wound description: unstageable, 1*1 cm scab intact with no drainage or s/sx of infection, hospital acquired from a nonremovable medical staff services coordinator Treatment: No documented specified treatment No further monitoring or documentation by nursing Elements for accurate and compliant documentation of an ulcer: *The location/laterality of the ulcer *Etiology (decubitus/pressure, diabetic, PVD) *Stage I-IV, Unstageable, Suspected Deep Tissue Injury (To the deepest stage) *If the ulcer was present at admission (POA) or occurred after admission In your professional opinion, can you please clarify the diagnosis, location, laterality and whether present on admission (POA): Stage 1 Pressure/Decubitus Ulcer (intact skin, non-blanching redness of local area) Stage 2 Pressure/Decubitus Ulcer (Partial thickness, loss of dermis, pink wound bed) Stage 3 Pressure/Decubitus Ulcer (Full thickness tissue loss) Stage 4 Pressure/Decubitus Ulcer (Full thickness tissue loss with exposed bone, tendon, or muscle. May have slough or eschar present) Unstageable Other condition, please specify Unable to determine Please indicate etiology of pressure ulcer (if known). (Last Revision: January 2017) Unable to determine MTDD
--- NOTE | 2020-05-24 15:29 | P.DS ---
Providers Date of admission: 04/11/20 16:50 Expected date of discharge: 05/14/20 Attending physician: Vince Valdez Consults: 04/11/20 16:52 Consult Physician Routine Consulting Provider: Joe Pinedo Consult Reason/Comments: Covid Pneumoina Do you want consulting provider notified?: Yes 04/11/20 18:50 Consult Physician Routine Consulting Provider: Mariano Woodruff Consult Reason/Comments: pneumonia Do you want consulting provider notified?: Yes 04/24/20 10:59 Consult Physician Stat Consulting Provider: Juan Rodriguez Consult Reason/Comments: tachycardia Do you want consulting provider notified?: Yes 04/25/20 09:03 Consult Physician Stat Consulting Provider: Rajan Wallace Consult Reason/Comments: elevated BUN CR Do you want consulting provider notified?: Yes 04/26/20 09:38 Consult Physician Routine Consulting Provider: Delmar Karimi Consult Reason/Comments: temporary dialysis catheter Do you want consulting provider notified?: Yes 05/04/20 09:49 Consult Physician Routine Consulting Provider: Charles Herman Consult Reason/Comments: COVID 19, Trach and Peg insertion Do you want consulting provider notified?: Yes Primary care physician: Nilay Crabtree MD Hospital Course: Final diagnosis COVID 19 pneumonia Status post tracheostomy and PEG tube placement sepsis, present on admission, positive blood cultures most likely contaminati on, also has been treated for septic shock Acute hypoxic respiratory failure-status post intubation and mechanical ventilation New onset A. fib with RVR Acute kidney injury with anuria status post hemodialysis Increased d-dimer without evidence of PE Hyponatremia, improved Leukocytosis Elevated inflammatory markers Hypertension, currently hypotensive receiving hemodialysis Hypothyroidism History of bilateral posterior tibial tendon repair Obesity with BMI of 40.2 DVT prophylaxis: Subcutaneous Lovenox GI prophylaxis: Pepcid Discharge disposition Patient has . Per nursing documentation, time of is 05/14/2020 at 1547. Preliminary cause of Covid 19 pneumonia Hospital course This is a 69-year-old female who was recently admitted with acute hypoxic respiratory failure secondary to Covid 19 pneumonia along with extensive bilateral interstitial pneumonia and was being closely followed. Patient did receive Remdesivir Along with convalescent plasma and was placed on Lovenox, dexamethasone, zinc, vitamin supplements. Patient was closely monitored in the ICU as patient's breathing continued to deteriorate requiring a chemical ventilation and intubation. Patient was also found to require hemodialysis during hospitalization and was maintained on daily dialysis and nephrology following closely. Multiple medical consultations following. Patient's prognosis remained extremely guarded and poor. Patient was unable to wean off mechanical event and ultimately received a tracheostomy along with the PEG tube. Family had decided for comfort measures today on 05/14/2020. Please refer to previous progress notes and documentation for further HPI. Patient Condition at Discharge: Poor Plan - Discharge Summary Discharge Rx Participant: No New Discharge Prescriptions: No Action Losartan/Hydrochlorothiazide [Losartan-Hctz 50-12.5 mg Tab] 1 tab PO DAILY Levothyroxine Sodium [Synthroid] 50 mcg PO DAILY Discharge Medication List Levothyroxine Sodium [Synthroid] 50 mcg PO DAILY 04/11/20 [History] Losartan/Hydrochlorothiazide [Losartan-Hctz 50-12.5 mg Tab] 1 tab PO DAILY 04/11/20 [History] Follow up Appointment(s)/Referral(s): Nilay Crabtree MD [Primary Care Provider] - 1-2 days Discharge Disposition: - Preliminary Cause of Preliminary Cause of : Covid 19 pneumonia
== END 2020-05-14 18:00 | disposition expired | DRG 3 ==
LOC: EC 16:19 → 3SCARD 16:50 → 2SICU 04-13 12:35
PROVIDERS: ADMIT Hospitalist; ATTEND Hospitalist
PROC: 5A0955A Assistance with Respiratory Ventilation, Greater than 96 Consecutive Hours, High Flow/Velocity Cannula (ICD-10-PCS; 2020-04-11)
PROC: XW033E5 Introduction of Remdesivir Anti-infective into Peripheral Vein, Percutaneous Approach, New Technology Group 5 (ICD-10-PCS; 2020-04-12)
PROC: XW13325 Transfusion of Convalescent Plasma (Nonautologous) into Peripheral Vein, Percutaneous Approach, New Technology Group 5 (ICD-10-PCS; 2020-04-12)
PROC: 5A09557 Assistance with Respiratory Ventilation, Greater than 96 Consecutive Hours, Continuous Positive Airway Pressure (ICD-10-PCS; 2020-04-13)
PROC: 02HV33Z Insertion of Infusion Device into Superior Vena Cava, Percutaneous Approach (ICD-10-PCS; 2020-04-22)
PROC: 3E0436Z Introduction of Nutritional Substance into Central Vein, Percutaneous Approach (ICD-10-PCS; 2020-04-22)
PROC: 3E0G76Z Introduction of Nutritional Substance into Upper GI, Via Natural or Artificial Opening (ICD-10-PCS; 2020-04-24)
PROC: 0D9670Z Drainage of Stomach with Drainage Device, Via Natural or Artificial Opening (ICD-10-PCS; 2020-04-24)
PROC: 5A1955Z Respiratory Ventilation, Greater than 96 Consecutive Hours (ICD-10-PCS; 2020-04-24)
PROC: 0BH17EZ Insertion of Endotracheal Airway into Trachea, Via Natural or Artificial Opening (ICD-10-PCS; 2020-04-24)
PROC: 4A133J1 Monitoring of Arterial Pulse, Peripheral, Percutaneous Approach (ICD-10-PCS; 2020-04-24)
PROC: 4A133B1 Monitoring of Arterial Pressure, Peripheral, Percutaneous Approach (ICD-10-PCS; 2020-04-24)
PROC: 03HY32Z Insertion of Monitoring Device into Upper Artery, Percutaneous Approach (ICD-10-PCS; 2020-04-24)
PROC: 5A1D70Z Performance of Urinary Filtration, Intermittent, Less than 6 Hours Per Day (ICD-10-PCS; 2020-04-26)
PROC: 06HY33Z Insertion of Infusion Device into Lower Vein, Percutaneous Approach (ICD-10-PCS; 2020-04-26)
PROC: 3E043XZ Introduction of Vasopressor into Central Vein, Percutaneous Approach (ICD-10-PCS; 2020-04-30)
PROC: 4A133B1 Monitoring of Arterial Pressure, Peripheral, Percutaneous Approach (ICD-10-PCS; 2020-05-04)
PROC: 4A133J1 Monitoring of Arterial Pulse, Peripheral, Percutaneous Approach (ICD-10-PCS; 2020-05-04)
PROC: 03HY32Z Insertion of Monitoring Device into Upper Artery, Percutaneous Approach (ICD-10-PCS; 2020-05-04)
PROC: 0DH63UZ Insertion of Feeding Device into Stomach, Percutaneous Approach (ICD-10-PCS; principal; 2020-05-05 11:05)
PROC: 0B110F4 Bypass Trachea to Cutaneous with Tracheostomy Device, Open Approach (ICD-10-PCS; principal; 2020-05-05 11:05)
PROC: 3E0G76Z Introduction of Nutritional Substance into Upper GI, Via Natural or Artificial Opening (ICD-10-PCS; principal; 2020-05-05 11:05)
PROC: 0BW18FZ Revision of Tracheostomy Device in Trachea, Via Natural or Artificial Opening Endoscopic (ICD-10-PCS; 2020-05-07)
DX: A41.9 Sepsis, unspecified organism (principal); T83.511A Infection and inflammatory reaction due to indwelling urethral catheter, initial encounter; N39.0 Urinary tract infection, site not specified; J12.82 Pneumonia due to coronavirus disease 2019; R65.21 Severe sepsis with septic shock; N17.0 Acute kidney failure with tubular necrosis; I50.31 Acute diastolic (congestive) heart failure; U07.1 COVID-19; E43 Unspecified severe protein-calorie malnutrition; J15.9 Unspecified bacterial pneumonia; J80 Acute respiratory distress syndrome; E87.4 Mixed disorder of acid-base balance; E87.1 Hypo-osmolality and hyponatremia; Z99.11 Dependence on respirator [ventilator] status; A08.39 Other viral enteritis; Z68.41 Body mass index [BMI] 40.0-44.9, adult; I47.1 Supraventricular tachycardia; J93.82 Other air leak; I48.92 Unspecified atrial flutter; J98.11 Atelectasis; J95.09 Other tracheostomy complication; D89.839 Cytokine release syndrome, grade unspecified; I11.0 Hypertensive heart disease with heart failure; L98.499 Non-pressure chronic ulcer of skin of other sites with unspecified severity; Z66 Do not resuscitate; Z51.5 Encounter for palliative care; I48.0 Paroxysmal atrial fibrillation; E66.9 Obesity, unspecified; E83.39 Other disorders of phosphorus metabolism; B96.20 Unspecified Escherichia coli [E. coli] as the cause of diseases classified elsewhere; E87.5 Hyperkalemia; F41.0 Panic disorder [episodic paroxysmal anxiety]; D75.1 Secondary polycythemia; I49.3 Ventricular premature depolarization; R73.9 Hyperglycemia, unspecified; E03.9 Hypothyroidism, unspecified; T38.0X5A Adverse effect of glucocorticoids and synthetic analogues, initial encounter; G47.00 Insomnia, unspecified; Z79.890 Hormone replacement therapy; Z79.899 Other long term (current) drug therapy; Z87.891 Personal history of nicotine dependence; Z90.710 Acquired absence of both cervix and uterus; Z87.42 Personal history of other diseases of the female genital tract; Z87.39 Personal history of other diseases of the musculoskeletal system and connective tissue; Z98.890 Other specified postprocedural states; Y83.8 Other surgical procedures as the cause of abnormal reaction of the patient, or of later complication, without mention of misadventure at the time of the procedure; Y84.6 Urinary catheterization as the cause of abnormal reaction of the patient, or of later complication, without mention of misadventure at the time of the procedure
CPT/HCPCS: 31622; 36415; 36573; 43246; 71045; 71275; 74018; 80048; 80053; 81001; 82271; 82330; 82550; 82553; 82728; 82805; 83520; 83605; 83615; 83735; 84100; 84132; 84145; 84478; 85025; 85027; 85379; 85384; 85610; 85730; 86140; 86704; 86706; 86850; 86900; 86901; 87040; 87070; 87077; 87086; 87186; 87205; 87340; 87635; 90935; 93306; 94002; 94003; 94640; 94660; 99285